=== PATIENT | female | born 1995 | race Caucasian/White ===

== ENCOUNTER 2023-06-26 02:30 | Emergency (ER) | payer OTHER, SELFPAY ==
[2023-06-26 02:33] VITALS: BP 131/94; PULSE 83; TEMP 36.7; O2SAT 99; BMI 18.3
--- NOTE | 2023-06-26 02:53 | ED_ITS ---
HPI - Extremity Problem General Chief complaint: Extremity Problem, Nontraumatic Stated complaint: RING STUCK ON FINGER Time Seen by Provider: 06/26/23 02:31 Source: patient Mode of arrival: walk-in History of Present Illness HPI Narrative: 28-year-old female presents for a ring stuck on her left finger. She could not get it off and tried soap and was unsuccessful. She feels some pressure. This issue started today. There is no previous injury to that finger. Related Data Allergies Allergy/AdvReac Type Severity Reaction Status Date / Time No Known Drug Allergies Allergy Verified 06/26/23 02:37 Review of Systems ROS Narrative A ten point review of systems is negative except as noted above. Exam Narrative Exam Narrative: Nurses note and vital signs reviewed and patient is not hypoxic. General: The patient appears well and in no apparent distress. Patient is resting comfortably on cart. Skin: Warm, dry, no pallor noted. There is no rash noted. Head: Normocephalic, atraumatic Eye: Normal conjunctiva, no drainage Ears, Nose, Mouth, and Throat: oral mucosa is moist. Nares patent. Cardiovascular: Regular Rate and Rhythm Respiratory: Patient is in no distress, no accessory muscle use GI: Soft and nontender Musculoskeletal: There is a ring stuck on her right middle finger. The finger is mildly swollen. After removal by the nursing staff there is no laceration or abrasion of the skin. Neurological: Awake and alert Psychiatric: Cooperative Constitutional Vital Signs, click to edit/add: Last Vital Signs Temp 98.1 F 06/26/23 02:33 Pulse 83 06/26/23 02:33 Resp 16 06/26/23 02:33 BP 131/94 H 06/26/23 02:33 Pulse Ox 99 06/26/23 02:33 Course Vital Signs Vital signs: Vital Signs Temperature 98.1 F 06/26/23 02:33 Pulse Rate 83 06/26/23 02:33 Respiratory Rate 16 06/26/23 02:33 Blood Pressure 131/94 H 06/26/23 02:33 Pulse Oximetry 99 06/26/23 02:33 Temperature 98.1 F 06/26/23 02:33 Pulse Rate 83 06/26/23 02:33 Respiratory Rate 16 06/26/23 02:33 Blood Pressure 131/94 H 06/26/23 02:33 Pulse Oximetry 99 06/26/23 02:33 MDM - Extremity (Nontraumatic) MDM Narrative Medical decision making narrative: The ring has been removed by nursing staff with ring cutting device. Differential Diagnosis Differential diagnosis: Likely other (Stuck ring, laceration, abrasion) Discharge Plan Discharge Stand Alone Forms: Portal Instructions Chief Complaint: Extremity Problem, Nontraumatic Clinical Impression: Constriction injury of finger of right hand Patient Disposition: Home, Self-Care Time of Disposition Decision: 02:51 Condition: Good Mode of Transportation: Private Vehicle Print Language: Portuguese Referrals: Physician,Non-Staff, MD [Primary Care Provider] - 1 week
== END 2023-06-26 03:00 | disposition home or self-care (01) ==
PROVIDERS: Emergency Provider Emergency Medicine; Family Provider Family Medicine
DX: S60.443A External constriction of left middle finger, initial encounter (principal); W49.04XA Ring or other jewelry causing external constriction, initial encounter
CPT/HCPCS: 99282

== ENCOUNTER 2023-09-23 13:46 | Emergency (ER) | payer OTHER, SELFPAY ==
[2023-09-23 13:49] VITALS: BP 148/90; PULSE 82; TEMP 36.8; O2SAT 98; BMI 19.1
--- OUTSIDE RECORDS SUMMARY | 2023-09-23 13:55 | XMS_ITS | CCD ---
Author Organization [facility] Inform ion Partnership IVF EMBRYOLOGIST [facility] Care Team Providers Care Supervisor Production Managing Name Role Phone Unavailable Primary Care Provider ELHAM Greer Referring Unavailable Jocelynn Koo Attending HOLLY Thornton Attending Unavailable Allergies Allergy Classification Reported Allergen(s) Allergy Type Date of Onset Reaction(s) Facility (1 source) No Known Medication Allergies; Translations: [No Known Medication Allergies] Propensity to adverse reactions to drug (disorder) [facility] Repository Medications Current Medications Medication Drug Class(es) Dates Sig (Normalized) Sig (Original) acetaminophen 325 mg oral capsule (1 source) Acetaminophen (T YLENOL) 325 MG CAPS Take by mouth 0 Active Problems Problem Classification Problem Date Documented Da te Episodic/Chronic Menstrual disorders (1 source) Menstrual period late; Translations: [Late menses] Chronic Results Test Name Value Interpretation Reference Range Facil ity HCG, Quanton 06-08-2020 HCG, Quant <1 Normal <5 [facility] Comment on above: Result Comment: Non-preg premeno <=5 Postmeno <=8 Male <=3 If HCG results do not concur with clinical observations, additional testing to confirm results is recommended. Elevated results not associated with may be found in patients with other diseases such as tumors of the germ cells (testis, ovaries, etc.), bladder, pancreas, stomach, lungs, and liver. Performed By: #### B HCG #### [facility] [address] [place] [address] [employer] [facility] Tender: Dragan Cabello MD HCG, Quantitative, on 06-08-2020 hCG Quant <1 <5 IU/L [facility] Work Phone: Comment on above: Non-preg premeno <=5 Postmeno <=8 Male <=3 If HCG results do not concur with clinical observations, additional testing to confirm results is recommended. Elevated results not associated with may be found in patients with other diseases such as tumors of the germ cells (testis, ovaries, etc.), bladder, pancreas, stomach, lungs, and liver. Encounters Encounter Date Encounter Type Care Provider Facility Start: 08-28-2023 End: 08-28-2023 ambulatory HOLLY RAMIREZ Not Available Start: 04-10-2022 End: 04-11-2022 ambulatory Jocelynn Montanezapolonia Facility: [facility] Start: 06-08-2020 End: 06-09-2020 Patient encounter procedure ELHAM BURCH [facility] Start: 06-08-2020 End: 06-08-2020 Subsequent hospital visit by physician CARLEEN Daniels OB and ENT PHYSICIAN Comment on above: Late menses Procedures Date Procedure Procedure Detail Performing Clinician Start: 06-08-2020 Gonadotropin chorion ic quantitative Elham Burch Plan of Treatment Date Care Activity Detail Author Start: 10-26-2020 Influenza vaccination Flu vacc ine ([facility]: Start: 08-16-2020 End: 08-16-2020 Ancillary Procedure [facility] Start: 2015 Screening for malign ant neoplasm of cervix Cervical cancer screen [facility] Phone: Start: 2013 DTaP/Tdap/Td vaccine (1 - Tdap) DTaP/Tdap/Td vaccine (1 - Tdap) [facility] Phone: Start: 2010 COVID-19 Vaccine (1) COVID-19 Vaccin e (1) [facility] Phone: Start: 2009 HIV screening HIV screen [facility] Work Phone: Start: 2005 HPV vaccine (1 - 2-d ose series) HPV vaccine (1 - 2-dose series) [facility] Phone: Start: 1995 Varicella vaccine (1 of 2 - 2-dose childhood series) Varicella vaccine (1 of 2 - 2-dose childhood series) [facility] Phone: Start: 1994 Hepatitis C screening Hepatitis C sc eleni [facility] Phone: Payers Date Payer Category Payer Medicaid [id number] 2020 Private Health Insurance 2019 Private Health Insurance [id number] 1994 Unknown [id number] 1994 Unknown [id number] 1994 Unknown [id number] Social History Date Type Detail Facility Start: 06-08-2020 Tobacco smoking stat [facility] Former smoker [facility] Phone: Start: 06-08-2020 Tobacco use and exposure Never used [facility] Phone: Start: 06-08-2020 Alcohol intake Current drinke r of alcohol (finding) [facility] Phone: Start: 06-08-2020 Alcohol Comment occasional [facility] [employer] Work Phone: Sex Assigned At Not on file [facility] Phone: Clinical Note 04-02-2022 Note Date & Type Note Facility 04-02-2022 Note Patient Education Ma terials Name: Delicia Siddiqui Current Date: 04/02/2022 11:25:10 [place] : 1995 The following sheet(s) are the Patient Education Leaflets for Delicia Siddiqui [employer] The Range of Pap Test Results When your Pap test is sent to the lab, the lab studies your cell samples and reports any abnormal cell changes. Your healthcare provider can discuss these changes with you. In some cases, an abnormal Pap test is due to an infection. More serious cell changes range from dysplasia to cancer. Talk to your healthcare provider about your Pap test. Normal results Cervical cells, even normal ones, are always changing. As they mature, normal squamous cells move from deeper layers within the cervix. Over time, these cells flatten and cover the surface of the cervix. Within the cervical canal, the cells are different. These glandular cells are taller and not as flat as the cells on the surface of the cervix. When a Pap test sample shows healthy cells of both types, the results are negative. Keep having Pap tests as often as directed. Abnormal results A positive Pap test result means some cells in the sample showed abnormal changes. These results are grouped by the type of cell change and the location, or extent, of the changes. Depending on the results, you may need further testing. ?Inflammation. Noncancerous changes are present. They may be due to normal cell repair. Or, they may be caused by an infection, such as HPV or yeast. Further testing may be needed. (Also called reactive cellular changes.) ?Atypical squamous cells. Test results are unclear. Cells on the surface of the cervix show changes, but their significance is not yet known. Testing for HPV and other sexually transmitted infections (STIs) may be needed. Treatment may be required. (Reported as ASC-US or ASC-H.) ?Atypical glandular cells. Cells lining the cervical canal show abnormal changes. Further testing is likely. You may also have treatment to destroy or remove problem cells. (Reported as AGC.) ?Mild dysplasia. Cells show distinct changes. More testing or HPV typing may be done. You may also have treatment to destroy or remove problem cells. (Reported as low-grade LISSETTE or ERVIN 1.) ?Moderate to severe dysplasia. Cells show precancerous changes. Or, noninvasive cancer (carcinoma in situ) may be present. Treatment to destroy or remove problem cells is likely. (Reported as high-grade LISSETTE or ERVIN 2 or ERVIN 3.) ?Cancer. Different types of cancer may be detected by your Pap test. More tests to assess the cancer's extent are likely. The type of treatment will depend on the test results and other factors, such as age and health history. (Reported as squamous cell carcinoma, endocervical adenocarcinoma in situ, or adenocarcinoma.) ? [id number] The [employer]. [address] [place] [address], [place] [address]. All rights reserved. This information is not intended as a substitute for professional medical care. Always follow your healthcare professional's instructions. Oncology Breast Health: Breast Self-Awareness What is breast self-awareness? Breast self-awareness is knowing how your breasts normally look and feel. Your breasts change as you go through different stages of your life. So it's important to learn what is normal for your breasts. Breast self-awareness helps you notice any changes in your breasts right away. Report any changes to your healthcare provider. Why is breast self-awareness important? Many experts now say that women should focus on breast self-awareness instead of doing a breast self-examination (BSE). These experts include the [place] [employer], the U.S. Preventive Services Task Force, and the [place] [employer] of [employer]stetricians and Gynecologists. Some experts even advise not teaching women to do a BSE. That's because research hasn't shown a clear benefit to doing BSEs. Breast self-awareness is different than a BSE. Breast self-awareness isn't about following a certain method and schedule. It's about knowing what's normal for your breasts. That way you can notice even small changes right away. If you see any changes, report them to your healthcare provider. Changes to look for Call your healthcare provider if you find any changes in your breasts that concern you. These changes may include: ? A lump ? Nipple discharge other than breastmilk, especially a bloody discharge ? Swelling ? A change in size or shape ? Skin irritation, such as redness, thickening, or dimpling of the skin ? Swollen lymph nodes in the armpit ? Nipple problems, such as pain or redness If you find a lump Contact your provider if you find lumpiness in one breast, feel something different in the tissue, or feel a definite lump. Sometimes lumpiness may be due to menstrual changes. But there may be reason for concern. Your provider may want to see you right away if you have: ? Nipple discharg (more content not included)... [facility] Assessments Diagnosis Late menses Other disorder of menstruation and other abnormal bleeding from female genital tract Summary Purpose Family History No Family History Records FoundNo Family History Records FoundNo Family History Records Found Advance Directives No Advanced Directives Records FoundNo Advanced Directives Records FoundNo Advanced Directives Records Found Additional Source Comments INFORMATION SOURCE (unrecogn ized section and content) DATE CREATED AUTHOR 06/09/2020 [facility] DATE CREATED AUTHOR AUTHOR'S ORGANIZ ATION 04/11/2022 [facility] DATE CREATED AUTHOR AUTHOR'S ORGANIZ ATION 08/30/2023 [facility] EPIC FOR RECORDS PERTAINING TO PATIENTS WHO ARE OR HAVE BEEN ENROLLED IN A CHEMICAL DEPENDENCY/SUBSTANCEABUSE PROGRAM, SOME INFORMATION MAY BE OMITTED. This clinical summary was aggregated from multiple sources. Caution should be exercised in using it in the provision of clinical care. This summary normalizes information from multiple sources, and as a consequence, information in this document may materially change the coding, format and clinical context of patient data. In addition, data may be omitted in some cases. CLINICAL DECISIONS SHOULD BE BASED ON THE PRIMARY CLINICAL RECORDS. [facility]. provides no warranty or guarantee of the accuracy or completeness of information in this document.
--- NOTE | 2023-09-23 14:00 | US_ITS ---
[address] [address] Patient Name: LANE SHAW MRN: [id number] date: 1995 Sex: F Assigned Patient Location: ER Current Patient Location: ER Accession/Order Number: [id number] Exam Date: 09/23/2023 14:30 Report Date: 09/23/2023 15:35 At the request of: SOUTH ODONNELL Procedure: US pelvis transvaginal EXAMINATION: US pelvis transvaginal HISTORY: Pelvic pain COMPARISON: No relevant comparison available. TECHNIQUE: Transabdominal and/or transvaginal sonographic examination was performed as indicated by examination type. FINDINGS: UTERUS: Normal size and appearance. Uterus size: 8.8 x 3.7 x 4.3 cm ENDOMETRIUM: Normal homogeneous appearance. Endometrial thickness: 7.8 RIGHT OVARY: Normal size and appearance. Duplex Doppler demonstrates normal waveform and flow; resistive index 0.5. Ovary size: 2.6 x 1.5 x 1.5 cm LEFT OVARY: Normal size and appearance. Duplex Doppler demonstrates normal waveform and flow; resistive index 0.5. Ovary size: 3.3 x 2.0 x 3.0 cm CUL-DE-SAC: Moderate amount of free fluid. BLADDER: Unremarkable. OTHER: None. US/US pelvis transvaginal IMPRESSION: 1. Moderate amount of simple appearing free fluid within pelvic cul-de-sac; likely recently ruptured ovarian cyst. 2. Otherwise no acute or suspicious findings. Electronically authenticated by: VIKA HUFFMAN Date: 09/23/2023 15:35
--- NOTE | 2023-09-23 14:01 | ED_ITS ---
HPI HPI - General Adult General Chief complaint: Abdominal Pain Stated complaint: PELVIC PAIN/ LOWER BACK Time Seen by Provider: 09/23/23 13:50 Source: patient Mode of arrival: walk-in History of Present Illness HPI narrative: Patient is a 28-year-old female who presents to the emergency department for 2- day history of pain in the suprapubic abdomen. She has no other abdominal pain. She does have some pain to the low back. No urinary symptoms. She denies vaginal bleeding or discharge. She has no STD concern. No fevers or vomiting. She had a regular menstrual period last week that ended several days ago. She states laying flat and sitting down makes the pain worse. She describes it as a heavy feeling. She is not concerned for . No medications prior to arrival. Related Data Previous Rx's ?Medication ?Instructions ?Recorded cephalexin 500 mg capsule 500 mg PO Q8H 7 days #21 caps 09/23/23 ketorolac 10 mg tablet 10 mg PO TID PRN pain #10 tabs 09/23/23 ondansetron 4 mg disintegrating 4 mg PO Q6H PRN nausea and 09/23/23 tablet vomiting #12 tabs oxycodone-acetaminophen 5 mg-325 1 tab PO Q6H PRN pain 3 days #12 09/23/23 mg tablet (Percocet) tabs phenazopyridine 200 mg tablet 200 mg PO Q8H 2 days #6 tabs 09/23/23 (Pyridium) Allergies Allergy/AdvReac Type Severity Reaction Status Date / Time No Known Drug Allergies Allergy Verified 06/26/23 02:37 Opioid HPI Opioid Management Most Recent Opioid Data: No Data to Display Review of Systems ROS Constitutional Denies: fever or chills Ears, nose, mouth, and throat Denies: throat pain or nasal congestion Respiratory Denies: shortness of breath Gastrointestinal Reports: abdominal pain; Denies: nausea or vomiting Genitourinary Denies: painful urination Musculoskeletal Reports: back pain; Denies: neck pain Integumentary/Breast Denies: rash Endocrine Denies: excessive urination Hematologic/Lymphatic Denies: easy bruising or easy bleeding Exam Narrative Exam Narrative: Gen.: Awake, alert, in no distress, tearful and standing at the bedside Head: Normocephalic, atraumatic ENT: Moist mucous membranes Respiratory: No respiratory distress Gastrointestinal: Abdomen is soft, nondistended and tender with voluntary guarding over the suprapubic abdomen with no rebound; no CVA tenderness Extremities: Moves extremities equally Psych: Normal mood and affect Neuro: No focal neuro deficit Skin: Warm, dry, intact Constitutional Vital Signs, click to edit/add: Last Vital Signs Temp 98.2 F 09/23/23 13:49 Pulse 82 09/23/23 13:49 Resp 18 09/23/23 13:49 BP 148/90 H 09/23/23 13:49 Pulse Ox 98 09/23/23 13:49 O2 Del Method Room Air 09/23/23 13:49 Course Vital Signs Vital signs: Vital Signs Temperature 98.2 F 09/23/23 13:49 Pulse Rate 82 09/23/23 13:49 Respiratory Rate 18 09/23/23 13:49 Blood Pressure 148/90 H 09/23/23 13:49 Pulse Oximetry 98 09/23/23 13:49 Oxygen Delivery Method Room Air 09/23/23 13:49 Temperature 98.2 F 09/23/23 13:49 Pulse Rate 82 09/23/23 13:49 Respiratory Rate 18 09/23/23 13:49 Blood Pressure 148/90 H 09/23/23 13:49 Pulse Oximetry 98 09/23/23 13:49 Oxygen Delivery Method Room Air 09/23/23 13:49 Medical Decision Making MDM Narrative Medical decision making narrative: ReSound performed because of the patient's significant pain at presentation. She has a urinary tract infection. Otherwise stable labs and negative test. Ultrasound shows fluid in the pelvic cul-de-sac consistent with a recently ruptured cyst. Patient will be treated for pain for home. Antibiotics, nausea medication, Pyridium given for UTI. Follow-up with gynecology and return to the ER if symptoms change or worsen. Medical Records Medical records reviewed: Yes I reviewed the patient's medical records Lab Data Lab results reviewed: Yes I reviewed the patient's lab results Labs: Lab Results 09/23/23 09/23/23 Range/Units 14:11 14:55 WBC 7.7 (4.0-11.0) 10^3/uL RBC 4.99 (4.20-5.40) 10^6/uL Hgb 14.7 (12.0-16.0) g/dL Hct 44.6 (36.0-48.0) % MCV 89.4 (81.0-99.0) fL MCH 29.5 (26.7-34.0) pg MCHC 33.0 (29.9-35.2) g/dL RDW 12.3 (11.0-15.0) % Plt Count 285 (150-450) 10^3/uL MPV 11.0 (9.5-13.5) fL Neut % (Auto) 70.9 (43.0-75.0) % Lymph % (Auto) 18.6 L (20.5-60.0) % [place] % (Auto) 7.7 (1.7-12.0) % Eos % (Auto) 1.3 (0.9-7.0) % Baso % (Auto) 1.2 (0.2-2.0) % Neut # (Auto) 5.4 (1.4-6.5) 10^3/uL Lymph # (Auto) 1.4 (1.2-3.8) 10^3/uL [place] # (Auto) 0.6 (0.3-0.8) 10^3/uL Eos # (Auto) 0.1 (0.0-0.7) 10^3/uL Baso # (Auto) 0.1 (0.0-0.1) 10^3/uL Abs Immat Gran (auto) 0.02 (0.00-0.03) 10^3/uL Imm/Tot Granulo (auto) 0.3 (0.0-0.5) % Sodium 137 (136-145) mmol/L Potassium 4.0 (3.5-5.1) mmol/L Chloride 101 (98-107) mmol/L Carbon Dioxide 30.1 (21.0-32.0) mmol/L Anion Gap 9.9 BUN 12.0 (7.0-18.0) mg/dL Creatinine 0.87 (0.55-1.02) mg/dL Est GFR ( Amer) >60 (>=60) Est GFR (Non-Af Amer) >60 (>=60) BUN/Creatinine Ratio 13.8 Glucose 90 (74-106) mg/dL Calcium 9.3 (8.5-10.1) mg/dL Total Bilirubin 0.8 (0.2-1.0) mg/dL AST 14 L (15-37) U/L ALT 18 (14-59) U/L Alkaline Phosphatase 55 (46-116) U/L Total Protein 7.8 (6.4-8.2) g/dL Albumin 4.1 (3.4-5.0) g/dL Globulin 3.7 g/dL Albumin/Globulin Ratio 1.1 Serum HCG, Qual Negative (NEGATIVE) Urine Color Lt. yellow (YELLOW) Urine Clarity Sl cloudy (CLEAR) Urine pH 6.0 (5.0-9.0) Ur Specific [place] 1.025 (1.005-1.025) Urine Protein Negative (NEG/TRACE) mg/dL Urine Glucose (UA) Negative (NEGATIVE) mg/dL Urine Ketones Negative (NEGATIVE) mg/dL Urine Occult Blood Small A (NEGATIVE) Urine Nitrite Negative (NEGATIVE) Urine Bilirubin Negative (NEGATIVE) Urine Urobilinogen 0.2 (0.2-1.0) EU/dL Ur Leukocyte Esterase Small A (NEGATIVE) Urine RBC 2-5 A (0-2) #/HPF Urine WBC 20-50 A (NONE SEEN) #/HPF Ur Squamous Epith Cells Rare (NONE/RARE) #/LPF Urine Crystals None seen (None Seen) #/HPF Urine Bacteria Trace A (NONE SEEN) #/HPF Urine Casts None seen (NONE SEEN) #/LPF Urine Mucus Trace A (NONE SEEN) Ur Culture Indicated? Yes Imaging Data US - abdomen: Attestation: I have reviewed the pertinent imaging results. Radiologist's impression: ITS Impressions Transvaginal US 09/23/23 14:00 IMPRESSION: 1. Moderate amount of simple appearing free fluid within pelvic cul-de-sac; likely recently ruptured ovarian cyst. 2. Otherwise no acute or suspicious findings. Electronically authenticated by: VIKA HUFFMAN Date: 09/23/2023 15:35 Discharge Plan Discharge Stand Alone Forms: Portal Instructions Chief Complaint: Abdominal Pain Clinical Impression: Pelvic pain, Urinary tract infection, Ovarian cyst rupture Patient Disposition: Home, Self-Care Time of Disposition Decision: 15:48 Condition: Good Prescriptions / Home Meds: New phenazopyridine [Pyridium] 200 mg tablet 200 mg PO Q8H 2 Days Qty: 6 0RF ketorolac 10 mg tablet 10 mg PO TID PRN (Reason: pain) Qty: 10 0RF oxycodone-acetaminophen [Percocet] 5-325 mg tablet 1 tab PO Q6H PRN (Reason: pain) 3 Days Qty: 12 0RF Rx Instructions: DX: R10.9 cephalexin 500 mg capsule 500 mg PO Q8H 7 Days Qty: 21 0RF ondansetron 4 mg tablet,disintegrating 4 mg PO Q6H PRN (Reason: nausea and vomiting) Qty: 12 0RF Print Language: French Instructions: Urinary Tract Infection in Women (ED), Pelvic Pain (ED) Additional Instructions: 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
[2023-09-23] MEDS: KETOROLAC TROMETHAMINE 30 MG/ML VIAL IVP (14:13)
[2023-09-23 14:20] LABS: Basophils Absolute Auto 0.1 10^3/uL (0.0-0.1); Basophils Percent Auto 1.2 % (0.2-2.0); Eosinophils Absolute Auto 0.1 10^3/uL (0.0-0.7); Eosinophils Percent Auto 1.3 % (0.9-7.0); Hematocrit 44.6 % (36.0-48.0); Hemoglobin 14.7 g/dL (12.0-16.0); Immature Granulocytes Abs Auto 0.02 10^3/uL (0.00-0.03); Immature Granulocytes Pct Auto 0.3 % (0.0-0.5); Lymphocytes Absolute Auto 1.4 10^3/uL (1.2-3.8); Lymphocytes Percent Auto 18.6 % (20.5-60.0); Mean Corpuscular Hemoglobin 29.5 pg (26.7-34.0); Mean Corpuscular Volume 89.4 fL (81.0-99.0); Monocytes Absolute Auto 0.6 10^3/uL (0.3-0.8); Monocytes Percent Auto 7.7 % (1.7-12.0); Neutrophils Absolute Auto 5.4 10^3/uL (1.4-6.5); Neutrophils Percent Auto 70.9 % (43.0-75.0); Platelet Count 285 10^3/uL (150-450); Red Blood Count 4.99 10^6/uL (4.20-5.40); Red Cell Distribution Width 12.3 % (11.0-15.0); White Blood Count 7.7 10^3/uL (4.0-11.0)
[2023-09-23 14:36] LABS: Alanine Aminotransferase 18 U/L (14-59); Albumin Globulin Ratio 1.1; Albumin Level 4.1 g/dL (3.4-5.0); Alkaline Phosphatase 55 U/L (46-116); Anion Gap 9.9; Aspartate Amino Transferase 14 U/L (15-37); BUN Creatinine Ratio 13.8; Bilirubin Total 0.8 mg/dL (0.2-1.0); Calcium 9.3 mg/dL (8.5-10.1); Carbon Dioxide 30.1 mmol/L (21.0-32.0); Chloride 101 mmol/L (98-107); Estimated GFR (African America >60 (>=60); Estimated GFR (Non-African Ame >60 (>=60); Globulin 3.7 g/dL; Glucose 90 mg/dL (74-106); Sodium 137 mmol/L (136-145); Total Protein 7.8 g/dL (6.4-8.2)
[2023-09-23 14:52] LABS: HCG Qualitative NEGATIVE (NEGATIVE); Internal Control Within Normal Limits
[2023-09-23 15:13] LABS: Bilirubin Urine NEGATIVE (NEGATIVE); Blood Urine SMALL (NEGATIVE); Clarity Urine SL CLOUDY (CLEAR); Color Urine LT. YELLOW (YELLOW); Glucose Urine UA NEGATIVE (NEGATIVE); Ketones Urine NEGATIVE (NEGATIVE); Leukocyte Esterase Urine SMALL (NEGATIVE); Nitrite Urine NEGATIVE (NEGATIVE); Protein Urine NEGATIVE (NEG/TRACE); Specific Gravity Urine 1.025 (1.005-1.025); Urobilinogen Urine 0.2 EU/dL (0.2-1.0)
[2023-09-23 15:23] LABS: Urine Microscopic Indicated YES
[2023-09-23 15:27] LABS: WBC Urine 20-50 #/HPF (NONE SEEN)
[2023-09-23 15:28] LABS: Bacteria Urine TRACE #/HPF (NONE SEEN)
[2023-09-23 15:29] LABS: Cast Seen? NONE SEEN #/LPF (NONE SEEN); Crystals Seen? None Seen #/HPF (None Seen); Mucus Urine TRACE (NONE SEEN); Squamous Epithelial Cell Urine RARE #/LPF (NONE/RARE); Urine Culture Indicated YES
== END 2023-09-23 15:56 | disposition home or self-care (01) ==
PROVIDERS: Physician Assistant; Emergency Provider Emergency Medicine Emergency Medical Services; Family Provider Family Medicine
DX: R10.2 Pelvic and perineal pain (principal); N39.0 Urinary tract infection, site not specified; N83.209 Unspecified ovarian cyst, unspecified side
CPT/HCPCS: 36415; 76830; 80053; 81001; 84703; 85025; 87086; 87186; 96374; 99285; J1885

== ENCOUNTER 2023-09-27 16:57 | Emergency (ER) | payer OTHER, SELFPAY ==
[2023-09-27 17:04] VITALS: BP 134/85; PULSE 127; TEMP 36.8; O2SAT 100; BMI 19.6
--- OUTSIDE RECORDS SUMMARY | 2023-09-27 17:12 | XMS_ITS | CCD ---
Author Organization [facility] Inform ion Partnership ASSOCIATE SPA DIRECTOR [facility] Care Team Providers Care Leader Tier Name Role Phone Unavailable Primary Care Provider ELHAM Greer Referring Unavailable Jocelynn Koo Attending HOLLY Thornton Attending Unavailable Allergies Allergy Classification Reported Allergen(s) Allergy Type Date of Onset Reaction(s) Facility (1 source) No Known Medication Allergies; Translations: [No Known Medication Allergies] Propensity to adverse reactions to drug (disorder) [facility] Repository Medications Current Medications Medication Drug Class(es) [...] Quanton 06-08-2020 HCG, Quant <1 Normal <5 [facility] Comment on above: Result Comment: Non-preg [...] liver. Performed By: #### B HCG #### [facility] [address] [place] [address] [employer]: Dragan Cabello MD HCG, Quantitative, on 06-08-2020 hCG Quant <1 <5 IU/L [facility] Work Phone: Comment on above: Non-preg premeno [...] End: 04-11-2022 ambulatory Jocelynn Montanezapolonia Facility: [facility] [place] Start: 06-08-2020 End: 06-09-2020 Patient encounter procedure ELHAM BURCH [facility] Start: 06-08-2020 End: 06-08-2020 Subsequent hospital visit by physician CARLEEN Daniels [facility] Comment on above: Late menses Procedures Date Procedure Procedure Detail Performing Clinician Start: 06-08-2020 Gonadotropin chorion ic quantitative Elham Burch Plan of Treatment Date Care Activity Detail Author Start: 10-26-2020 Influenza vaccination Flu vacc ine ([facility]: Start: 08-16-2020 End: 08-16-2020 Ancillary Procedure [facility] Start: 2015 Screening for malign ant neoplasm of cervix Cervical cancer screen [facility] Phone: Start: 2013 DTaP/Tdap/Td vaccine (1 - Tdap) DTaP/Tdap/Td vaccine (1 - Tdap) [facility] Phone: Start: 2010 COVID-19 Vaccine (1) COVID-19 Vaccin e (1) [facility] Phone: Start: 2009 HIV screening HIV screen [facility] Work Phone: Start: 2005 HPV vaccine (1 - 2-d ose series) HPV vaccine (1 - 2-dose series) [facility] Phone: Start: 1995 Varicella vaccine (1 of 2 - 2-dose childhood series) Varicella vaccine (1 of 2 - 2-dose childhood series) [email or web address] Phone: Start: 1994 Hepatitis C screening Hepatitis C sc eleni [email or web address] Phone: Payers Date Payer Category Payer Medicaid [id number] 2020 Private Health Insurance 2019 Private Health Insurance [id number] 1994 Unknown [id number] 1994 Unknown [id number] 1994 Unknown [id number] Social History Date Type Detail Facility Start: 06-08-2020 Tobacco smoking stat [facility] Former smoker [email or web address] Phone: Start: 06-08-2020 Tobacco use and exposure Never used [email or web address] Phone: Start: 06-08-2020 Alcohol intake Current drinke r of alcohol (finding) [email or web address] Phone: Start: 06-08-2020 Alcohol Comment occasional [facility] Work Phone: Sex Assigned At Not on file [email or web address] Phone: Clinical Note 04-02-2022 Note Date & Type Note Facility 04-02-2022 Note Patient Education Ma terials Name: Delicia Siddiqui Current Date: 04/02/2022 11:25:10 [place] : 1995 The following sheet(s) are the Patient Education Leaflets 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 4330-4465 [employer]. [address] [place] [address], [place] [address]. All rights reserved. This information is not [...] breast self-examination (BSE). These experts include the [place] [employer], the U.S. Preventive Services Task Force, and the [place] [employer]stetricians and Gynecologists. Some experts [...] ? Nipple discharg (more content not included)... [facility] Assessments Diagnosis Late menses Other disorder of menstruation and other abnormal bleeding from female genital tract Summary Purpose Family History No Family History Records FoundNo Family History Records FoundNo Family History Records Found Advance Directives No Advanced Directives Records FoundNo Advanced Directives Records FoundNo Advanced Directives Records Found Additional Source Comments INFORMATION SOURCE (unrecogn ized section and content) DATE CREATED AUTHOR 06/09/2020 [facility] DATE CREATED AUTHOR AUTHOR'S ORGANIZ ATION 04/11/2022 [facility] DATE CREATED AUTHOR AUTHOR'S ORGANIZ ATION 08/30/2023 [facility] EPIC FOR RECORDS PERTAINING TO PATIENTS [...] BE BASED ON THE PRIMARY CLINICAL RECORDS. [facility] [employer] [facility]. provides no warranty or guarantee of the accuracy or completeness of information in this document.
--- NOTE | 2023-09-27 17:15 | ED_ITS ---
HPI - Abdominal Pain General Chief Complaint: Abdominal Pain Stated Complaint: severe pain, recent ovarian cyst rupture Time Seen by Provider: 09/27/23 17:11 Source: patient Mode of arrival: walk-in Limitations: no limitations History of Present Illness HPI narrative: This patient is here with relapsing symptoms. She was seen earlier this week. At that time it was felt that she had ovarian cystic disease with small amount of fluid in her pelvis and she also had pretty clear-cut urinary tract infection. In fact her urine culture here was positive for E. coli. It was susceptible to all antibiotics. She states that she has been taking her Keflex on a faithful basis. She said that she took Pyridium and all the urinary symptoms such as frequency urgency and dysuria got better. Now that she is finished the Pyridium some of her symptoms are now coming back. To her knowledge she has not been running a fever. She has some nausea but no vomiting. No diarrhea. She has some discomfort in the suprapubic area and the left lower quadrant. This I believe was her first UTI. She does not know much about her family history but she personally has never had a CT scan of the kidneys before and she has no history of kidney stones. Related Data Previous Rx's ?Medication ?Instructions ?Recorded cephalexin 500 mg capsule 500 mg PO Q8H 7 days #21 caps 09/23/23 ketorolac 10 mg tablet 10 mg PO TID PRN pain #10 tabs 09/23/23 ondansetron 4 mg disintegrating 4 mg PO Q6H PRN nausea and 09/23/23 tablet vomiting #12 tabs oxycodone-acetaminophen 5 mg-325 1 tab PO Q6H PRN pain 3 days #12 09/23/23 mg tablet (Percocet) tabs phenazopyridine 200 mg tablet 200 mg PO Q8H 2 days #6 tabs 09/23/23 (Pyridium) Allergies Allergy/AdvReac Type Severity Reaction Status Date / Time No Known Drug Allergies Allergy Verified 06/26/23 02:37 Exam Narrative Exam Narrative: Awake alert pleasant does not appear or toxic but does not feel very good. She does however have an increase in her heart rate. She is not hypotensive and she is afebrile. Skin is warm and dry mucous membranes are moist and pink. She has aching with slight tenderness to percussion over the right flank. There is no other skin lesions noted on her back. In supine position she has no tenderness at McBurney's point no right upper quadrant tenderness. Some discomfort in the suprapubic and left lower quadrant to deep palpation but no peritoneal findings, no rebound or rigidity. The remainder of her examination and respiratory status is normal. Constitutional Vital Signs, click to edit/add: Last Vital Signs Temp 98.2 F 09/27/23 17:04 Pulse 100 H 09/27/23 18:03 Resp 18 09/27/23 18:03 BP 115/73 09/27/23 18:03 Pulse Ox 97 09/27/23 18:03 Course Vital Signs Vital signs: Vital Signs Temperature 98.2 F 09/27/23 17:04 Pulse Rate 127 H 09/27/23 17:04 Respiratory Rate 20 09/27/23 17:04 Blood Pressure 134/85 09/27/23 17:04 Pulse Oximetry 100 09/27/23 17:04 Temperature 98.2 F 09/27/23 17:04 Pulse Rate 100 H 09/27/23 18:03 Respiratory Rate 18 09/27/23 18:03 Blood Pressure 115/73 09/27/23 18:03 Pulse Oximetry 97 09/27/23 18:03 MDM - Abdominal Pain MDM Narrative Medical decision making narrative: This patient had partial resolution of her symptoms and now she has returning of her dysuria symptoms. Her urinalysis here is normal. Her white blood cell count is normal. Physical examination is benign and vital signs show no evidence of a fever. Her heart rate has slowed considerably. To rule out any possibility of obstructive phenomenon causing residual pyelonephritis a CT scan was done. The CT of the abdomen is read by the radiologist is negative for any acute process. There is no indication of pelvic pathology. Her serum test was negative previously. There is no free fluid in the pelvis. I will start her on a second antibiotic. There is no indication of colitis or diverticulitis. Lab Data Labs: Lab Results 09/27/23 09/27/23 Range/Units 17:20 17:30 WBC 5.9 (4.0-11.0) 10^3/uL RBC 4.68 (4.20-5.40) 10^6/uL Hgb 13.6 (12.0-16.0) g/dL Hct 40.7 (36.0-48.0) % MCV 87.0 (81.0-99.0) fL MCH 29.1 (26.7-34.0) pg MCHC 33.4 (29.9-35.2) g/dL RDW 12.3 (11.0-15.0) % Plt Count 265 (150-450) 10^3/uL MPV 11.2 (9.5-13.5) fL Neut % (Auto) 63.2 (43.0-75.0) % Lymph % (Auto) 25.0 (20.5-60.0) % [place] % (Auto) 9.2 (1.7-12.0) % Eos % (Auto) 1.2 (0.9-7.0) % Baso % (Auto) 1.2 (0.2-2.0) % Neut # (Auto) 3.7 (1.4-6.5) 10^3/uL Lymph # (Auto) 1.5 (1.2-3.8) 10^3/uL [place] # (Auto) 0.5 (0.3-0.8) 10^3/uL Eos # (Auto) 0.1 (0.0-0.7) 10^3/uL Baso # (Auto) 0.1 (0.0-0.1) 10^3/uL Abs Immat Gran (auto) 0.01 (0.00-0.03) 10^3/uL Imm/Tot Granulo (auto) 0.2 (0.0-0.5) % Lactate 1.7 (0.4-2.0) mmol/L Urine Color Lt. yellow (YELLOW) Urine Clarity Clear (CLEAR) Urine pH 8.5 (5.0-9.0) Ur Specific [place] 1.015 (1.005-1.025) Urine Protein Negative (NEG/TRACE) mg/dL Urine Glucose (UA) Negative (NEGATIVE) mg/dL Urine Ketones Negative (NEGATIVE) mg/dL Urine Occult Blood Negative (NEGATIVE) Urine Nitrite Negative (NEGATIVE) Urine Bilirubin Negative (NEGATIVE) Urine Urobilinogen 0.2 (0.2-1.0) EU/dL Ur Leukocyte Esterase Negative (NEGATIVE) Discharge Plan Discharge Stand Alone Forms: Portal Instructions Chief Complaint: Abdominal Pain Clinical Impression: Cystitis Patient Disposition: Home, Self-Care Time of Disposition Decision: 19:03 Prescriptions / Home Meds: No Action phenazopyridine [Pyridium] 200 mg tablet 200 mg PO Q8H 2 Days Qty: 6 0RF ketorolac 10 mg tablet 10 mg PO TID PRN (Reason: pain) Qty: 10 0RF oxycodone-acetaminophen [Percocet] 5-325 mg tablet 1 tab PO Q6H PRN (Reason: pain) 3 Days Qty: 12 0RF Rx Instructions: DX: R10.9 cephalexin 500 mg capsule 500 mg PO Q8H 7 Days Qty: 21 0RF ondansetron 4 mg tablet,disintegrating 4 mg PO Q6H PRN (Reason: nausea and vomiting) Qty: 12 0RF Print Language: Latvian Additional Instructions: Finish previous antibiotic and start Cipro/Toradol/Zofran as needed Referrals: Physician,Non-Staff, [Physician] - 1 week
--- NOTE | 2023-09-27 17:26 | CT_ITS ---
The [address] [address] Patient Name: LANE SHAW MRN: [id number] date: 1995 Sex: F Assigned Patient Location: ER Current Patient Location: ED.MAIN Accession/Order Number: [id number] Exam Date: 09/27/2023 17:44 Report Date: 09/27/2023 18:39 At the request of: EMIL IZQUIERDO Procedure: CT abdomen pelvis wo con CT ABDOMEN/PELVIS WITHOUT IV CONTRAST. INDICATION: Unresolved UTI, suprapubic/left lower quadrant elo COMPARISON: There are no other studies available for comparison. TECHNIQUE: Contiguous axial images were obtained from the lung bases to the pelvic floor without intravenous or oral contrast. Coronal and sagittal reformations are provided. FINDINGS: LOWER LUNGS: Clear. LIVER/BILIARY TREE: No discrete lesion. No intrahepatic ductal dilatation. GALLBLADDER: No significant gallbladder wall thickening. No radiopaque stone. CBD: Normal CBD. SPLEEN: Normal in size. PANCREAS: No appreciable peripancreatic fluid. No pancreatic ductal dilatation. No discrete lesion. ADRENALS: Normal. KIDNEYS: No hydronephrosis. No radiopaque calculus. STOMACH AND BOWEL: Stomach is unremarkable. No dilated bowel loops. No bowel wall thickening. APPENDIX: Not well-visualized. PERITONEAL CAVITY: No fluid. No fat stranding. ABDOMINAL WALL: No subcutaneous stranding. No subcutaneous fluid collection. LYMPH NODES: No mesenteric or retroperitoneal lymphadenopathy by CT criteria. ABDOMINAL AORTA: No aneurysm. PELVIS: No acute abnormality. MUSCULOSKELETAL: No acute osseous abnormality. CT/CT abdomen pelvis wo con IMPRESSION: No acute abnormality in the abdomen or pelvis. No obstructive uropathy. Electronically authenticated by: GILLIAN ADAME Date: 09/27/2023 18:39
[2023-09-27] MEDS: KETOROLAC TROMETHAMINE 30 MG/ML VIAL 15 MG IVP ×2 (17:37→19:13)
[2023-09-27 17:43] LABS: Basophils Absolute Auto 0.1 10^3/uL (0.0-0.1); Basophils Percent Auto 1.2 % (0.2-2.0); Eosinophils Absolute Auto 0.1 10^3/uL (0.0-0.7); Eosinophils Percent Auto 1.2 % (0.9-7.0); Hematocrit 40.7 % (36.0-48.0); Hemoglobin 13.6 g/dL (12.0-16.0); Immature Granulocytes Abs Auto 0.01 10^3/uL (0.00-0.03); Immature Granulocytes Pct Auto 0.2 % (0.0-0.5); Lymphocytes Absolute Auto 1.5 10^3/uL (1.2-3.8); Mean Corpuscular HGB Conc 33.4 g/dL (29.9-35.2); Mean Corpuscular Hemoglobin 29.1 pg (26.7-34.0); Mean Platelet Volume 11.2 fL (9.5-13.5); Monocytes Absolute Auto 0.5 10^3/uL (0.3-0.8); Monocytes Percent Auto 9.2 % (1.7-12.0); Neutrophils Absolute Auto 3.7 10^3/uL (1.4-6.5); Neutrophils Percent Auto 63.2 % (43.0-75.0); Platelet Count 265 10^3/uL (150-450); Red Blood Count 4.68 10^6/uL (4.20-5.40); Red Cell Distribution Width 12.3 % (11.0-15.0); White Blood Count 5.9 10^3/uL (4.0-11.0)
[2023-09-27 17:44] LABS: Bilirubin Urine NEGATIVE (NEGATIVE); Blood Urine NEGATIVE (NEGATIVE); Clarity Urine CLEAR (CLEAR); Color Urine LT. YELLOW (YELLOW); Glucose Urine UA NEGATIVE (NEGATIVE); Ketones Urine NEGATIVE (NEGATIVE); Leukocyte Esterase Urine NEGATIVE (NEGATIVE); Nitrite Urine NEGATIVE (NEGATIVE); Protein Urine NEGATIVE (NEG/TRACE); Specific Gravity Urine 1.015 (1.005-1.025); Urobilinogen Urine 0.2 EU/dL (0.2-1.0); pH Urine 8.5 (5.0-9.0)
[2023-09-27 17:45] LABS: Urine Microscopic Indicated NO
[2023-09-27] MEDS: CIPROFLOXACIN IN 5 % DEXTROSE 400 MG/200 ML PREMIX 200 MG IV (17:49)
[2023-09-27] MEDS: 0.9 % SODIUM CHLORIDE 1,000 ML 999 ML IV (17:49)
[2023-09-27 18:03] VITALS: BP 115/73; PULSE 100; O2SAT 97
[2023-09-27 18:05] LABS: Lactate/Lactic Acid 1.7 mmol/L (0.4-2.0)
[2023-09-27 19:00] VITALS: BP 125/78
[2023-09-27] MEDS: ONDANSETRON PF 4 MG/2 ML VIAL IV (19:13)
== END 2023-09-27 19:27 | disposition home or self-care (01) ==
PROVIDERS: Emergency Provider Emergency Medicine Emergency Medical Services; Family Provider Family Medicine; PCP Internal Medicine
DX: N30.90 Cystitis, unspecified without hematuria (principal)
CPT/HCPCS: 36415; 74176; 81003; 83605; 85025; 96365; 96375; 96376; 99285; J0744; J1885; J2405

== ENCOUNTER 2023-12-12 13:59 | Observation (INO) | payer OTHER, SELFPAY ==
[2023-12-12] VITALS (18 sets, daily range): BP systolic 99–124; BP diastolic 52–90; PULSE 66–99; TEMP 36.2–36.7; O2SAT 92–99; BMI 20.2; BMI 20.1
--- NOTE | 2023-12-12 14:15 | CT_ITS ---
The [address] [address] Patient Name: LANE SHAW MRN: [id number] date: 1995 Sex: F Assigned Patient Location: ER Current Patient Location: Accession/Order Number: [id number] Exam Date: 12/12/2023 16:25 Report Date: 12/12/2023 17:35 At the request of: SOUTH ODONNELL Procedure: CT abdomen pelvis w con EXAM: CT abdomen pelvis w con TECHNIQUE: Axial CT images were obtained of the abdomen and pelvis with intravenous contrast. Sagittal and coronal reformatted images were also obtained. Dose reduction techniques were achieved by using automated exposure control and/or adjustment of mA and/or kV according to patient size and/or use of iterative reconstruction technique. HISTORY: Acute appendicitis COMPARISON: 09/27/2023 FINDINGS: Lower chest: The lower lungs are clear. Liver: The liver is homogeneous with normal contours and normal size. Gallbladder: The gallbladder is unremarkable. There is no intra or extrahepatic biliary dilatation. Pancreas: The pancreas is homogeneous without evidence for mass lesion or inflammation. Spleen: The spleen is unremarkable without evidence for mass lesion. Adrenal glands: The adrenal glands are unremarkable Kidneys and bladder: The kidneys are unremarkable with no evidence for mass lesion, hydronephrosis or inflammation. The ureters demonstrate normal caliber. The urinary bladder is unremarkable. GI Tract: Stomach is unremarkable. Visualized small bowel is unremarkable without evidence for obstruction or active inflammation. The appendix is borderline dilated at 8 mm in thickness, without significant periappendiceal inflammation.The visualized portion of the large bowel is unremarkable. Reproductive: Unremarkable Lymph nodes: No retroperitoneal or abdominal lymphadenopathy. Vascular: The aorta is not dilated. Mesenteric, renal and iliac arteries are patent. Peritoneum: No free intraperitoneal air or fluid. No acute inflammation. Abdominal wall: Unremarkable without acute abnormality. CT/CT abdomen pelvis w con IMPRESSION: Borderline dilated appendix without significant periappendiceal inflammation. This is indeterminate for an early acute appendicitis. No additional acute abdominal findings. Electronically authenticated by: ASHKAN POWELL Date: 12/12/2023 17:35
--- NOTE | 2023-12-12 14:17 | ED.ABDPAIN1 ---
HPI - Abdominal Pain General Chief Complaint: Abdominal Pain Stated Complaint: ABDOMINAL PAIN Time Seen by Provider: 12/12/23 14:14 Source: patient Mode of arrival: walk-in History of Present Illness HPI narrative: Patient is a 28-year-old female who presents to the emergency department for a 4-day history of pain in the right side of the abdomen. She has never had previous abdominal surgery. She does have a history of previous ovarian cyst rupture but this does not feel similar. She feels the pain in her back as well. She denies fevers but reports chills. She has had nausea with no vomiting. She has a lack of appetite. Pain is significantly worse with movement, walking. She has no concern for . Related Data Previous Rx's ?Medication ?Instructions ?Recorded cephalexin 500 mg capsule 500 mg PO Q8H 7 days #21 caps 09/23/23 ketorolac 10 mg tablet 10 mg PO TID PRN pain #10 tabs 09/23/23 ondansetron 4 mg disintegrating 4 mg PO Q6H PRN nausea and 09/23/23 tablet vomiting #12 tabs oxycodone-acetaminophen 5 mg-325 1 tab PO Q6H PRN pain 3 days #12 09/23/23 mg tablet (Percocet) tabs phenazopyridine 200 mg tablet 200 mg PO Q8H 2 days #6 tabs 09/23/23 (Pyridium) Allergies Allergy/AdvReac Type Severity Reaction Status Date / Time No Known Drug Allergies Allergy Verified 06/26/23 02:37 Review of Systems ROS Constitutional Reports: chills; Denies: fever Ears, nose, mouth, and throat Denies: throat pain or nasal congestion Respiratory Denies: shortness of breath Gastrointestinal Reports: abdominal pain and nausea; Denies: vomiting or diarrhea Musculoskeletal Reports: back pain; Denies: neck pain, extremity pain or extremity swelling Integumentary/Breast Denies: rash Neurological Denies: numbness in extremities or weakness in extremities Hematologic/Lymphatic Denies: easy bruising or easy bleeding Exam Narrative Exam Narrative: Gen.: Awake, alert, no distress but uncomfortable Head: Normocephalic, atraumatic ENT: Moist mucous membranes Respiratory: No respiratory distress, lungs clear bilaterally Cardio: Regular rate and rhythm Gastrointestinal: Abdomen is soft, nondistended moderate to severe tenderness noted in the right abdomen, voluntary guarding and rebounding noted Extremities: Moves extremities equally Psych: Normal mood and affect Neuro: No focal neuro deficit Skin: Warm, dry, intact Constitutional Vital Signs, click to edit/add: Last Vital Signs Temp 98.1 F 12/12/23 14:01 Pulse 74 12/12/23 16:27 Resp 18 12/12/23 16:27 BP 104/71 12/12/23 16:27 Pulse Ox 99 12/12/23 16:27 O2 Del Method Room Air 12/12/23 14:01 Course Vital Signs Vital signs: Vital Signs Temperature 98.1 F 12/12/23 14:01 Pulse Rate 78 12/12/23 14:01 Respiratory Rate 20 12/12/23 14:01 Blood Pressure 120/90 12/12/23 14:01 Pulse Oximetry 97 12/12/23 14:01 Oxygen Delivery Method Room Air 12/12/23 14:01 Temperature 98.1 F 12/12/23 14:01 Pulse Rate 74 12/12/23 16:27 Respiratory Rate 18 12/12/23 16:27 Blood Pressure 104/71 12/12/23 16:27 Pulse Oximetry 99 12/12/23 16:27 Oxygen Delivery Method Room Air 12/12/23 14:01 MDM - Abdominal Pain MDM Narrative Medical decision making narrative: Patient treated with IV Dilaudid, Zofran. She had significant pain relief but after returning from CT had an increase in pain again and was given additional morphine. She was kept n.p.o. in the ER. She had several sips of diet Dr. Sheehan around 1 PM and has not had any food or fluids since that time. Laboratory studies are unremarkable, test is negative. CT with IV and oral contrast shows the patient has borderline dilated appendix with no significant inflammation. Based on her clinical exam, we are concerned for acute appendicitis and I contacted general surgery. Dr. Mcclelland will take the patient to surgery for acute appendicitis at this time. Imipenem was given. She is stable at time of admission. SUPERVISED APC VISIT, PHYSICIAN ATTESTATION: Based on the medical record the care appears appropriate. ? Medical Records Attestation: I reviewed the patient's medical records. Lab Data Labs: Lab Results 12/12/23 12/12/23 Range/Units 14:06 14:25 WBC 7.1 (4.0-11.0) 10^3/uL RBC 4.75 (4.20-5.40) 10^6/uL Hgb 14.3 (12.0-16.0) g/dL Hct 42.4 (36.0-48.0) % MCV 89.3 (81.0-99.0) fL MCH 30.1 (26.7-34.0) pg MCHC 33.7 (29.9-35.2) g/dL RDW 12.6 (11.0-15.0) % Plt Count 242 (150-450) 10^3/uL MPV 10.6 (9.5-13.5) fL Neut % (Auto) 67.8 (43.0-75.0) % Lymph % (Auto) 21.1 (20.5-60.0) % [place] % (Auto) 8.6 (1.7-12.0) % Eos % (Auto) 1.3 (0.9-7.0) % Baso % (Auto) 1.1 (0.2-2.0) % Neut # (Auto) 4.8 (1.4-6.5) 10^3/uL Lymph # (Auto) 1.5 (1.2-3.8) 10^3/uL [place] # (Auto) 0.6 (0.3-0.8) 10^3/uL Eos # (Auto) 0.1 (0.0-0.7) 10^3/uL Baso # (Auto) 0.1 (0.0-0.1) 10^3/uL Abs Immat Gran (auto) 0.01 (0.00-0.03) 10^3/uL Imm/Tot Granulo (auto) 0.1 (0.0-0.5) % PT 11.0 (9.0-11.6) sec INR 1.04 Sodium 141 (136-145) mmol/L Potassium 3.8 (3.5-5.1) mmol/L Chloride 103 (98-107) mmol/L Carbon Dioxide 27.1 (21.0-32.0) mmol/L Anion Gap 14.7 BUN 12.0 (7.0-18.0) mg/dL Creatinine 0.92 (0.55-1.02) mg/dL Est GFR ( Amer) >60 (>=60 mL/min/1.73m^2) Est GFR (Non-Af Amer) >60 (>=60 mL/min/1.73m^2) BUN/Creatinine Ratio 13.0 Glucose 87 (74-106) mg/dL Lactate 1.0 (0.4-2.0) mmol/L Calcium 9.4 (8.5-10.1) mg/dL Total Bilirubin 0.5 (0.2-1.0) mg/dL AST 11 L (15-37) U/L ALT 14 (14-59) U/L Alkaline Phosphatase 52 (46-116) U/L Total Protein 7.5 (6.4-8.2) g/dL Albumin 4.1 (3.4-5.0) g/dL Globulin 3.4 g/dL Albumin/Globulin Ratio 1.2 Serum HCG, Qual Negative (NEGATIVE) Urine Color Lt. yellow (YELLOW) Urine Clarity Clear (CLEAR) Urine pH 6.0 (5.0-9.0) Ur Specific [place] 1.025 (1.005-1.025) Urine Protein Negative (NEG/TRACE) mg/dL Urine Glucose (UA) Negative (NEGATIVE) mg/dL Urine Ketones Negative (NEGATIVE) mg/dL Urine Occult Blood Negative (NEGATIVE) Urine Nitrite Negative (NEGATIVE) Urine Bilirubin Negative (NEGATIVE) Urine Urobilinogen 0.2 (0.2-1.0) EU/dL Ur Leukocyte Esterase Negative (NEGATIVE) Imaging Data CT scan - abdomen: Attestation: I have reviewed the pertinent imaging results. Radiologist's impression: ITS Impressions Abdomen/Pelvis CT 12/12/23 14:15 IMPRESSION: Borderline dilated appendix without significant periappendiceal inflammation. This is indeterminate for an early acute appendicitis. No additional acute abdominal findings. Electronically authenticated by: ASHKAN POWELL Date: 12/12/2023 17:35 Discharge Plan Discharge Chief Complaint: Abdominal Pain Clinical Impression: Abdominal pain, Acute appendicitis Patient Disposition: Admitted as Observation Time of Disposition Decision: 17:49 Prescriptions / Home Meds: No Action phenazopyridine [Pyridium] 200 mg tablet 200 mg PO Q8H 2 Days Qty: 6 0RF ketorolac 10 mg tablet 10 mg PO TID PRN (Reason: pain) Qty: 10 0RF oxycodone-acetaminophen [Percocet] 5-325 mg tablet 1 tab PO Q6H PRN (Reason: pain) 3 Days Qty: 12 0RF Rx Instructions: DX: R10.9 cephalexin 500 mg capsule 500 mg PO Q8H 7 Days Qty: 21 0RF ondansetron 4 mg tablet,disintegrating 4 mg PO Q6H PRN (Reason: nausea and vomiting) Qty: 12 0RF Print Language: Arabic Referrals: HOLLY RAMIREZ [Primary Care Provider] - 1 week
--- OUTSIDE RECORDS SUMMARY | 2023-12-12 14:21 | XMS_ITS | CCD ---
Author Organization [facility] Inform ion Partnership PATIENT CARE ASSOCIATE [facility] Care Team Providers Care Elevator Serviceman Name Role Phone Unavailable Primary Care Provider ELHAM Greer Referring Unavailable Jocelynn Koo Attending HOLLY Thornton Attending Unavailable Allergies Allergy Classification Reported Allergen(s) Allergy Type Date of Onset Reaction(s) Facility (1 source) No Known Medication Allergies; Translations: [No Known Medication Allergies] Propensity to adverse reactions to drug (disorder) [facility] Repository Medications Current Medications Medication Drug Class(es) [...] Quanton 06-08-2020 HCG, Quant <1 Normal <5 [facility] Comment on above: Result Comment: Non-preg [...] liver. Performed By: #### B HCG #### [facility] [address] [place] [address] Laundry Manager: Dragan Cabello MD HCG, Quantitative, on 06-08-2020 hCG Quant <1 <5 IU/L [employer] Work Phone: Comment on above: Non-preg premeno [...] End: 04-11-2022 ambulatory Jocelynn Montanezapolonia Facility: [facility] Start: 06-08-2020 End: 06-09-2020 Patient encounter procedure ELHAM BURCH [facility] Start: 06-08-2020 End: 06-08-2020 Subsequent hospital visit by physician CARLEEN Daniels OB and POWER AND RECOVERY SUPERVISOR Comment on above: Late menses Procedures Date Procedure Procedure Detail Performing Clinician Start: 06-08-2020 Gonadotropin chorion ic quantitative Elham Burch Plan of Treatment Date Care Activity Detail Author Start: 10-26-2020 Influenza vaccination [facility] vacc [facility]e [facility] Start: 08-16-2020 End: 08-16-2020 Ancillary Procedure [facility]etric[facility]ne[facility] Start: 2015 Screening for malign ant neoplasm of cervix Cervical cancer screen [facility]: Start: 2013 DTaP/Tdap/Td vaccine (1 - Tdap) DTaP/Tdap/Td vaccine (1 - Tdap) [facility] Phone: Start: 2010 COVID-19 Vaccine (1) COVID-19 Vaccin e (1) [facility]: Start: 2009 HIV screening HIV screen [facility] Work Phone: Start: 2005 HPV vaccine (1 - 2-d ose series) HPV vaccine (1 - 2-dose series) [facility]: Start: 1995 Varicella vaccine (1 of 2 - 2-dose childhood series) Varicella vaccine (1 of 2 - 2-dose childhood series) [employer] Phone: Start: 1994 Hepatitis C screening Hepatitis C sc eleni [employer] Phone: Payers Date Payer Category Payer Medicaid [id number] 2020 Private Health Insurance 2019 Private Health Insurance [id number] 1994 Unknown [id number] 1994 Unknown [id number] 1994 Unknown [id number] Social History Date Type Detail Facility Start: 06-08-2020 Tobacco smoking stat [facility] Former smoker [employer] Phone: Start: 06-08-2020 Tobacco use and exposure Never used [employer] Phone: Start: 06-08-2020 Alcohol intake Current drinke r of alcohol (finding) [employer] Phone: Start: 06-08-2020 Alcohol Comment occasional [employer] Work Phone: Sex Assigned At Not on file [employer] Phone: Clinical Note 04-02-2022 Note Date & Type Note Facility 04-02-2022 Note Patient Education Ma terials Name: Delicia Siddiqui Current Date: 04/02/2022 11:25:10 [place] : 1995 The following sheet(s) are the Patient Education Leaflets for Delicia Siddiqui Guide Domestic Tour The Range of Pap Test Results When [...] endocervical adenocarcinoma in situ, or adenocarcinoma.) ? 7424-2454 The [employer]. [address] [place] [address], [place] [address]. All rights reserved. This information is not [...] breast self-examination (BSE). These experts include the [place] [employer], the U.S. Preventive Services Task Force, and the [place] Congress of Obstetricians and Gynecologists. Some experts [...] ? Nipple discharg (more content not included)... [facility] Assessments Diagnosis Late menses Other disorder of menstruation and other abnormal bleeding from female genital tract Summary Purpose Family History No Family History Records FoundNo Family History Records FoundNo Family History Records Found Advance Directives No Advanced Directives Records FoundNo Advanced Directives Records FoundNo Advanced Directives Records Found Additional Source Comments INFORMATION SOURCE (unrecogn ized section and content) DATE CREATED AUTHOR 06/09/2020 [facility] DATE CREATED AUTHOR AUTHOR'S ORGANIZ ATION 04/11/2022 [facility] DATE CREATED AUTHOR AUTHOR'S ORGANIZ ATION 08/30/2023 [facility] EPIC FOR RECORDS PERTAINING TO PATIENTS [...] BE BASED ON THE PRIMARY CLINICAL RECORDS. [facility] [employer] [facility]. provides no warranty or guarantee of the accuracy or completeness of information in this document.
[2023-12-12 14:33] LABS: Basophils Absolute Auto 0.1 10^3/uL (0.0-0.1); Basophils Percent Auto 1.1 % (0.2-2.0); Eosinophils Absolute Auto 0.1 10^3/uL (0.0-0.7); Eosinophils Percent Auto 1.3 % (0.9-7.0); Hematocrit 42.4 % (36.0-48.0); Hemoglobin 14.3 g/dL (12.0-16.0); Immature Granulocytes Abs Auto 0.01 10^3/uL (0.00-0.03); Immature Granulocytes Pct Auto 0.1 % (0.0-0.5); Lymphocytes Absolute Auto 1.5 10^3/uL (1.2-3.8); Lymphocytes Percent Auto 21.1 % (20.5-60.0); Mean Corpuscular HGB Conc 33.7 g/dL (29.9-35.2); Mean Corpuscular Hemoglobin 30.1 pg (26.7-34.0); Mean Corpuscular Volume 89.3 fL (81.0-99.0); Mean Platelet Volume 10.6 fL (9.5-13.5); Monocytes Absolute Auto 0.6 10^3/uL (0.3-0.8); Monocytes Percent Auto 8.6 % (1.7-12.0); Neutrophils Absolute Auto 4.8 10^3/uL (1.4-6.5); Neutrophils Percent Auto 67.8 % (43.0-75.0); Platelet Count 242 10^3/uL (150-450); Red Blood Count 4.75 10^6/uL (4.20-5.40); Red Cell Distribution Width 12.6 % (11.0-15.0); White Blood Count 7.1 10^3/uL (4.0-11.0)
[2023-12-12] MEDS: 0.9 % SODIUM CHLORIDE 1,000 ML 1000 ML IV (14:34)
[2023-12-12] MEDS: ONDANSETRON PF 4 MG/2 ML VIAL IV ×2 (14:34→20:46)
[2023-12-12] MEDS: HYDROMORPHONE HCL 1 MG/ML CARTRIDGE IV (14:34)
[2023-12-12 14:37] LABS: Bilirubin Urine NEGATIVE (NEGATIVE); Blood Urine NEGATIVE (NEGATIVE); Clarity Urine CLEAR (CLEAR); Color Urine LT. YELLOW (YELLOW); Glucose Urine UA NEGATIVE (NEGATIVE); Ketones Urine NEGATIVE (NEGATIVE); Leukocyte Esterase Urine NEGATIVE (NEGATIVE); Nitrite Urine NEGATIVE (NEGATIVE); Protein Urine NEGATIVE (NEG/TRACE); Specific Gravity Urine 1.025 (1.005-1.025); Urobilinogen Urine 0.2 EU/dL (0.2-1.0)
[2023-12-12 14:39] LABS: Urine Microscopic Indicated NO
[2023-12-12 14:44] LABS: HCG Qualitative NEGATIVE (NEGATIVE); Internal Control Within Normal Limits
[2023-12-12 14:47] LABS: INR 1.04
[2023-12-12 15:02] LABS: Alanine Aminotransferase 14 U/L (14-59); Albumin Globulin Ratio 1.2; Albumin Level 4.1 g/dL (3.4-5.0); Alkaline Phosphatase 52 U/L (46-116); Anion Gap 14.7; Aspartate Amino Transferase 11 U/L (15-37); Bilirubin Total 0.5 mg/dL (0.2-1.0); Calcium 9.4 mg/dL (8.5-10.1); Carbon Dioxide 27.1 mmol/L (21.0-32.0); Chloride 103 mmol/L (98-107); Estimated GFR (African America >60 (>=60 mL/min/1.73m^2); Estimated GFR (Non-African Ame >60 (>=60 mL/min/1.73m^2); Globulin 3.4 g/dL; Glucose 87 mg/dL (74-106); Potassium 3.8 mmol/L (3.5-5.1); Sodium 141 mmol/L (136-145); Total Protein 7.5 g/dL (6.4-8.2)
[2023-12-12] MEDS: MORPHINE SULFATE 4 MG/ML VIAL IV (16:57)
[2023-12-12] MEDS: IMIPENEM/CILASTATIN SODIUM 1,000 MG in 0.9 % SODIUM CHLORIDE 100 ML 100 MG IV (18:10)
--- NOTE | 2023-12-12 18:34 | PM.HP ---
HPI H&P: HPI History of Present Illness Chief complaint: ABDOMINAL PAIN ACUTE APPENDICITIS Narrative: Delicia Siddiqui is a 28 y/o female that presented to ER with RLQ pain x [address] shows possible early appendicitis. Pt. has RLQ pain at McBurney's point. She has been anorexic for the last 4 days. She has had mild nausea and bloating. She has been passing mucus per stool. She has had some chills but no fever. He was under to the ED. She has a history of attention deficit disorder and takes medication for that. 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 She has an 11-year-old daughter. Opioid HPI Opioid Management Most Recent Pain and Opioid Data: Last Pain Scale 8 12/12/23 16:57 12/12/23 Last APR Pain Assessment 12/12/23 16:57 Review of Systems ROS Status of ROS 10 or more systems reviewed and unremarkable except as noted in history and below Meds Home Medications and Allergies Allergies Allergy/AdvReac Type Severity Reaction Status Date / Time No Known Drug Allergies Allergy Verified 06/26/23 02:37 Exam Constitutional Vital Signs, click to edit/add: Last Vital Signs Temp 98.1 F 12/12/23 14:01 Pulse 74 12/12/23 16:27 Resp 18 12/12/23 16:27 BP 104/71 12/12/23 16:27 Pulse Ox 99 12/12/23 16:27 O2 Del Method Room Air 12/12/23 14:01 Documenting provider has reviewed patient's vital signs: yes Common normals: no apparent distress, average body habitus, oriented x3, no limitations, healthy appearing, alert and well nourished Eye Common normals: PERRL, EOMs intact bilaterally, conjunctivae normal and no scleral icterus Respiratory Auscultation: clear to auscultation bilaterally Cardio Common normals: regular rate and regular rhythm GI Common normals: Normal to inspection, nondistended, normoactive bowel sounds present and soft to palpation Palpation: tender Details: RLQ and McBurney's point Results Labs Labs: Short CBC 12/12/23 Range/Units 14:25 WBC 7.1 (4.0-11.0) 10^3/uL Hgb 14.3 (12.0-16.0) g/dL Hct 42.4 (36.0-48.0) % Plt Count 242 (150-450) 10^3/uL BMP 12/12/23 14:06 Sodium 141 Potassium 3.8 Chloride 103 Carbon Dioxide 27.1 BUN 12.0 Creatinine 0.92 Glucose 87 Calcium 9.4 Liver Function 12/12/23 Range/Units 14:06 Total Bilirubin 0.5 (0.2-1.0) mg/dL AST 11 L (15-37) U/L ALT 14 (14-59) U/L Alkaline Phosphatase 52 (46-116) U/L Albumin 4.1 (3.4-5.0) g/dL Urine 12/12/23 Range/Units 14:06 Urine Color Lt. yellow (YELLOW) Urine Clarity Clear (CLEAR) Urine pH 6.0 (5.0-9.0) Ur Specific [place] 1.025 (1.005-1.025) Urine Protein Negative (NEG/TRACE) mg/dL Urine Glucose (UA) Negative (NEGATIVE) mg/dL Imaging CT scan - abdomen: Attestation: I have reviewed the pertinent imaging results. Assessment and Plan Assessment and Plan (1) Acute appendicitis: Plan Laparoscopic appendectomy with possible open appendectomy.Risks, benefits and alternatives to surgery may include infection, post op abscess, bleeding, blood clots to legs or lungs pneumonia, stroke, or .Pt. agreed to surgery.
--- OUTSIDE RECORDS SUMMARY | 2023-12-12 19:16 | XMS_ITS | CCD ---
Author Organization [facility] Inform ion Partnership JUNIOR BUSINESS ANALYST [facility] Care Team Providers Care Desizing Machine Back Tender Name Role Phone Unavailable Primary Care Provider ELHAM Greer Referring Unavailable Jocelynn Koo Attending HOLLY Thornton Attending Unavailable Allergies Allergy Classification Reported Allergen(s) Allergy Type Date of Onset Reaction(s) Facility (1 source) No Known Medication Allergies; Translations: [No Known Medication Allergies] Propensity to adverse reactions to drug (disorder) [facility] Repository Medications Current Medications Medication Drug [...] Quanton 06-08-2020 HCG, Quant <1 Normal <5 [facility] Comment on above: Result Comment: Non-preg [...] liver. Performed By: #### B HCG #### [employer] [address] [place] [address] Test Lead: Dragan Cabello MD HCG, Quantitative, on 06-08-2020 hCG Quant <1 <5 IU/L [employer] Work Phone: Comment on above: Non-preg premeno [...] End: 04-11-2022 ambulatory Jocelynn Montanezapolonia Facility: [facility] Start: 06-08-2020 End: 06-09-2020 Patient encounter procedure ELHAM BURCH [facility] Start: 06-08-2020 End: 06-08-2020 Subsequent hospital visit by physician CARLEEN Daniels OB and VENDING ENTERPRISES SUPERVISOR Comment on above: Late menses Procedures Date Procedure Procedure Detail Performing Clinician Start: 06-08-2020 Gonadotropin chorion ic quantitative Elham Burch Plan of Treatment Date Care Activity Detail Author Start: 10-26-2020 Influenza vaccination [facility] vacc ine ([facility]ed[facility]: Start: 08-16-2020 End: 08-16-2020 Ancillary Procedure [facility] Obstetrics & Gynecology Start: 2015 Screening for malign ant neoplasm of cervix Cervical cancer screen [facility] Phone: Start: 2013 DTaP/Tdap/Td vaccine (1 - Tdap) DTaP/Tdap/Td vaccine (1 - Tdap) [facility] Phone: Start: 2010 COVID-19 Vaccine (1) COVID-19 Vaccin e (1) [facility] Phone: Start: 2009 HIV screening HIV screen [facility] Work Phone: Start: 2005 HPV vaccine (1 - 2-d ose series) HPV vaccine (1 - 2-dose series) [facility] Phone: Start: 1995 Varicella vaccine (1 of 2 - 2-dose childhood series) Varicella vaccine (1 of 2 - 2-dose childhood series) [employer] Phone: Start: 1994 Hepatitis C screening Hepatitis C sc eleni [facility] Phone: Payers Date Payer Category Payer Medicaid [id number] 2020 Private Health Insurance 2019 Private Health Insurance [id number] 1994 Unknown [id number] 1994 Unknown [id number] 1994 Unknown [id number] Social History Date Type Detail Facility Start: 06-08-2020 Tobacco smoking stat [facility] Former smoker [employer] Phone: Start: 06-08-2020 Tobacco use and exposure Never used [employer] Phone: Start: 06-08-2020 Alcohol intake Current drinke r of alcohol (finding) [employer] Phone: Start: 06-08-2020 Alcohol Comment occasional [place] [email or web address] Work Phone: Sex Assigned At Not on file [employer] Phone: Clinical Note 04-02-2022 Note Date & Type Note Facility 04-02-2022 Note Patient Education Ma terials Name: Delicia Siddiqui Current Date: 04/02/2022 11:25:10 [place] : 1995 The following sheet(s) are the Patient Education Leaflets for Delicia Siddiqui Chief Resource Officer The Range of Pap Test Results When [...] endocervical adenocarcinoma in situ, or adenocarcinoma.) ? 4751-4373 [employer]. [address] [place] [address], [place] [address]. All rights reserved. This information is not [...] breast self-examination (BSE). These experts include the [place] [employer], the U.S. Preventive Services Task Force, and the [place] [employer] of Obstetricians and Gynecologists. Some experts [...] ? Nipple discharg (more content not included)... [facility] Assessments Diagnosis Late menses Other disorder of menstruation and other abnormal bleeding from female genital tract Summary Purpose Family History No Family History Records FoundNo Family History Records FoundNo Family History Records Found Advance Directives No Advanced Directives Records FoundNo Advanced Directives Records FoundNo Advanced Directives Records Found Additional Source Comments INFORMATION SOURCE (unrecogn ized section and content) DATE CREATED AUTHOR 06/09/2020 [facility] DATE CREATED AUTHOR AUTHOR'S ORGANIZ ATION 04/11/2022 [facility] DATE CREATED AUTHOR AUTHOR'S ORGANIZ ATION 08/30/2023 [facility] EPIC FOR RECORDS PERTAINING TO [...] BE BASED ON THE PRIMARY CLINICAL RECORDS. [facility]. provides no warranty or guarantee of the accuracy or completeness of information in this document.
--- NOTE | 2023-12-12 19:25 | P.GSPRC_ITS ---
Date of procedure: 12/12/23 Indications for Procedure: Acute appendicitis Pre-op diagnosis: Acute appendicitis Post-op diagnosis: same as pre-op Procedure: Laparoscopic appendectomy Findings: Acute appendicitis Anesthesia: LEIDY Surgeon: Kj Mcclelland Procedure Summary: LAPAROSCOPIC APPENDECTOMY The patient was taken to the operating suite, placed in the supine position and given a general anesthetic by the anesthesiologist. The abdomen was prepped and draped in the usual sterile fashion. A subumbilical incision was made down to the anterior rectus fascia and was opened in the midline and traction sutures of #0 Vicryl were placed. The peritoneal cavity was entered and the Daniel port was placed into the abdominal cavity. The abdomen was insufflated with carbon dioxide to 15 mmHg pressure. The laparoscope was then placed with an acute appendix found when the patient was placed in Trendelenburg position. A 12 mm port was placed in the left lower quadrant and another 12 mm port was placed in the right upper quadrant all under direct visualization. A grasper was placed on the mesoappendix and it was held anteriorly on traction and then a curved dissector was used to dissect a window in the mesoappendix and then an Endo-BELÉN stapling device was fired across the base of the appendix with the cecum. The mesoappendix was taken down with the LigaSure device. . Hemostasis being maintained, all ports were then removed after the appendix had been removed in a bag. Anterior rectus fascia was closed with #0 Vicryl suture in an interrupted fashion and the other two port sites were also closed with #0 Vicryl suture in an interrupted fashion. 0.5% Marcaine 30 cc was used to anesthetize subcutaneous tissue. Skin was closed with 4 oh Monocryl in a running subcuticular fashion. Sponge, needle and instrument counts were correct. Case was clean, contaminated emergency. Blood loss was minimal Specimen - Appendix The patient went to recovery room in satisfactory condition. Tractor Engine Assembler: ANDRÉS Arora Estimated blood loss (mL): 1 Specimens: Appendix Complications: No Condition: stable Disposition: PACU
[2023-12-12] MEDS: BUPIVACAINE HCL 0.5% PF 50 MG/10 ML VIAL 20 ML INJ (20:11)
[2023-12-12] MEDS: HYDROMORPHONE HCL 0.5 MG/0.5 ML SYRINGE IV ×3 (20:44→21:08)
[2023-12-12] MEDS: CELECOXIB 200 MG CAPSULE PO (21:33)
[2023-12-12] MEDS: OXYCODONE HCL/ACETAMINOPHEN 5MG/325MG 1 TAB PO (21:33)
[2023-12-12] MEDS: LACTATED RINGER'S SOLUTION 1,000 ML 50 ML IV (23:20)
[2023-12-13 01:19] VITALS: BP 105/56; PULSE 66; TEMP 36.7; O2SAT 94
[2023-12-13] MEDS: OXYCODONE HCL/ACETAMINOPHEN 5MG/325MG 1 TAB PO ×2 (03:14→08:56)
[2023-12-13 04:00] VITALS: BP 94/60; PULSE 63; TEMP 36.5; O2SAT 94
[2023-12-13] MEDS: ONDANSETRON PF 4 MG/2 ML VIAL IV (07:29)
[2023-12-13 08:00] VITALS: BP 110/54; PULSE 90; TEMP 36.3; O2SAT 95
[2023-12-13] MEDS: CELECOXIB 200 MG CAPSULE PO (08:56)
--- NOTE | 2023-12-16 12:02 | CM.DCFOLLOWU ---
Phone number not in service, 12/16/23
== END 2023-12-13 09:47 | disposition home or self-care (01) ==
LOC: ER 17:49 → MS 19:13
PROVIDERS: Physician Assistant; Admitting Provider Surgery; Emergency Provider Emergency Medicine; Family Provider Family Medicine; PCP Internal Medicine; Visit Provider Surgery
PROC: (CPT 840; principal; 2023-12-12 19:30)
DX: K35.80 Unspecified acute appendicitis (principal); F98.8 Other specified behavioral and emotional disorders with onset usually occurring in childhood and adolescence; Z79.899 Other long term (current) drug therapy
CPT/HCPCS: 44970; 36415; 74177; 80053; 81003; 83605; 84703; 85025; 85610; 88304; 96365; 96375; 96376; 99285; G0378; J0665; J0743; J1100; J1171; J1885; J2250; J2270; J2405; J2704; J3010; Q9966; Q9967

== ENCOUNTER 2024-06-18 21:28 | Emergency (ER) | payer OTHER, SELFPAY ==
[2024-06-18 21:36] VITALS: BP 122/78; PULSE 122; TEMP 36.8; O2SAT 97; BMI 21.0
--- NOTE | 2024-06-18 22:05 | ED.GENADUL1 ---
HPI HPI - General Adult General Chief complaint: Headache Stated complaint: Headache 12 week Time Seen by Provider: 06/18/24 21:55 Source: patient Mode of arrival: walk-in Limitations: no limitations History of Present Illness HPI narrative: . history of migraines. Seen yesterday by OB states BP was mildly elevated and some protein in her urine. No intervention at this time. Migraine for 2 days. left side of her head. She has history of migraines and is certain this is one. Nausea but no vomiting. No stiff neck or fever Related Data Allergies Allergy/AdvReac Type Severity Reaction Status Date / Time No Known Drug Allergies Allergy Verified 06/18/24 21:36 Opioid HPI Opioid Management Most Recent Opioid Data: Last Pain Scale 6 12/13/23 08:59 12/13/23 Last ORT Total Score 3 12/12/23 22:02 12/12/23 Last ORT Risk Category Low Risk 12/12/23 22:02 12/12/23 Review of Systems ROS Status of ROS 10 or more systems reviewed and unremarkable except as noted in history and below PFSH [facility] Medical History (Updated 06/18/24 @ 23:22 by Raffy Alberto MD) Attention deficit disorder (ADD) in adult ?F98.8 - Other specified behavioral and emotional disorders with onset usually occurring in childhood and adolescence (ICD-10) Social History (Updated 12/12/23 @ 22:13 by Vera Porter RN) Within the past year, how often did you have a drink containing alcohol: monthly or less Within the past year, how many standard drinks containing alcohol did you have on a typical day: 1 or 2 Within the past year, how often did you have six or more drinks on one occasion: less than monthly Total score: 1 Score interpretation: A score less than 3 is consistent with normal alcohol consumption. Smoking status: Current some day smoker Do you use any of these nicotine containing products: e-cigarettes and vaping products Non-prescribed substance use: cannabis (any form) Highest level of school completed/degree received: GED or equivalent Are you now , , , , never or living with a partner: never In a typical week, how many times do you talk on the telephone with family, friends, or neighbors: 3 or more times per week How often do you get together with friends or relatives: 3 or more times per week How often do you attend holiness or anabaptist services: never Little interest or pleasure in doing things: not at all Feeling down, depressed, or hopeless: not at all Feel stressed/tense/nervous/anxious/difficulty sleeping: not at all Gender Identity: female Exam Constitutional Vital Signs, click to edit/add: Last Vital Signs Temp 98.2 F 06/18/24 21:36 Pulse 122 H 06/18/24 21:36 Resp 20 06/18/24 21:36 BP 122/78 06/18/24 21:36 Pulse Ox 97 06/18/24 21:36 O2 Del Method Room Air 06/18/24 21:36 Common normals: no apparent distress, average body habitus, oriented x3, no limitations, healthy appearing, alert and well nourished HENMT Common normals: normocephalic and head/scalp atraumatic Eye Common normals: PERRL, EOMs intact bilaterally and conjunctivae normal Respiratory Common normals: normal respiratory effort, no retractions, no use of accessory muscles and clear to auscultation bilaterally Cardio Common normals: S1 normal heart sound and S2 normal heart sound Rate: tachycardic GI Common normals: Normal to inspection, nondistended, normoactive bowel sounds present and soft to palpation Extremity Common normals: normal to inspection, full ROM and no pedal edema Neuro Common normals: oriented x3, CN's II-XII intact bilaterally, moves all extremities and no focal motor deficits Psych Appearance: grossly normal Course Vital Signs Vital signs: Vital Signs Temperature 98.2 F 06/18/24 21:36 Pulse Rate 122 H 06/18/24 21:36 Respiratory Rate 20 06/18/24 21:36 Blood Pressure 122/78 06/18/24 21:36 Pulse Oximetry 97 06/18/24 21:36 Oxygen Delivery Method Room Air 06/18/24 21:36 Temperature 98.2 F 06/18/24 21:36 Pulse Rate 122 H 06/18/24 21:36 Respiratory Rate 20 06/18/24 21:36 Blood Pressure 122/78 06/18/24 21:36 Pulse Oximetry 97 06/18/24 21:36 Oxygen Delivery Method Room Air 06/18/24 21:36 Medical Decision Making MDM Narrative Medical decision making narrative: patient presents with migraine headache. past history of similar migraines. CBC and BMP WNL. patient medicated and now is feeling better. Discharged home in improved condition Lab Data Labs: Lab Results 06/18/24 Range/Units 22:15 WBC 8.3 (4.0-11.0) 10^3/uL RBC 3.88 L (4.20-5.40) 10^6/uL Hgb 11.5 L (12.0-16.0) g/dL Hct 33.9 L (36.0-48.0) % MCV 87.4 (81.0-99.0) fL MCH 29.6 (26.7-34.0) pg MCHC 33.9 (29.9-35.2) g/dL RDW 12.3 (11.0-15.0) % Plt Count 225 (150-450) 10^3/uL MPV 11.3 (9.5-13.5) fL Neut % (Auto) 76.1 H (43.0-75.0) % Lymph % (Auto) 15.6 L (20.5-60.0) % Osborne % (Auto) 7.2 (1.7-12.0) % Eos % (Auto) 0.5 L (0.9-7.0) % Baso % (Auto) 0.4 (0.2-2.0) % Neut # (Auto) 6.3 (1.4-6.5) 10^3/uL Lymph # (Auto) 1.3 (1.2-3.8) 10^3/uL Osborne # (Auto) 0.6 (0.3-0.8) 10^3/uL Eos # (Auto) 0.0 (0.0-0.7) 10^3/uL Baso # (Auto) 0.0 (0.0-0.1) 10^3/uL Abs Immat Gran (auto) 0.02 (0.00-0.03) 10^3/uL Imm/Tot Granulo (auto) 0.2 (0.0-0.5) % Sodium 140 (136-145) mmol/L Potassium 3.9 (3.5-5.1) mmol/L Chloride 105 (98-107) mmol/L Carbon Dioxide 27.3 (21.0-32.0) mmol/L Anion Gap 11.6 BUN 10.0 (7.0-18.0) mg/dL Creatinine 0.60 (0.55-1.02) mg/dL Est GFR ( Amer) >60 (>=60 mL/min/1.73m^2) Est GFR (Non-Af Amer) >60 (>=60 mL/min/1.73m^2) BUN/Creatinine Ratio 16.7 Glucose 84 (74-106) mg/dL Calcium 8.9 (8.5-10.1) mg/dL Discharge Plan Discharge Chief Complaint: Headache Clinical Impression: Migraine Patient Disposition: Home, Self-Care Print Language: Kinyarwanda Instructions: Migraine Headache (ED) Referrals: HOLLY RAMIREZ [Primary Care Provider] - 1 week
[2024-06-18] MEDS: METOCLOPRAMIDE HCL 10 MG/2 ML VIAL IVP (22:27)
[2024-06-18] MEDS: METHYLPREDNISOLONE SOD SUCC PF 125 MG/2 ML VIAL IVP (22:27)
[2024-06-18 22:39] LABS: Basophils Percent Auto 0.4 % (0.2-2.0); Eosinophils Percent Auto 0.5 % (0.9-7.0); Hematocrit 33.9 % (36.0-48.0); Hemoglobin 11.5 g/dL (12.0-16.0); Immature Granulocytes Abs Auto 0.02 10^3/uL (0.00-0.03); Immature Granulocytes Pct Auto 0.2 % (0.0-0.5); Lymphocytes Absolute Auto 1.3 10^3/uL (1.2-3.8); Lymphocytes Percent Auto 15.6 % (20.5-60.0); Mean Corpuscular HGB Conc 33.9 g/dL (29.9-35.2); Mean Corpuscular Hemoglobin 29.6 pg (26.7-34.0); Mean Corpuscular Volume 87.4 fL (81.0-99.0); Mean Platelet Volume 11.3 fL (9.5-13.5); Monocytes Absolute Auto 0.6 10^3/uL (0.3-0.8); Monocytes Percent Auto 7.2 % (1.7-12.0); Neutrophils Absolute Auto 6.3 10^3/uL (1.4-6.5); Neutrophils Percent Auto 76.1 % (43.0-75.0); Platelet Count 225 10^3/uL (150-450); Red Blood Count 3.88 10^6/uL (4.20-5.40); Red Cell Distribution Width 12.3 % (11.0-15.0); White Blood Count 8.3 10^3/uL (4.0-11.0)
[2024-06-18 22:54] LABS: Anion Gap 11.6; BUN Creatinine Ratio 16.7; Calcium 8.9 mg/dL (8.5-10.1); Carbon Dioxide 27.3 mmol/L (21.0-32.0); Chloride 105 mmol/L (98-107); Estimated GFR (African America >60 (>=60 mL/min/1.73m^2); Estimated GFR (Non-African Ame >60 (>=60 mL/min/1.73m^2); Glucose 84 mg/dL (74-106); Potassium 3.9 mmol/L (3.5-5.1); Sodium 140 mmol/L (136-145)
[2024-06-18 23:48] VITALS: BP 122/80; PULSE 81; O2SAT 98
== END 2024-06-18 23:51 | disposition home or self-care (01) ==
PROVIDERS: Emergency Provider Internal Medicine; Family Provider Family Medicine; PCP Internal Medicine
DX: O99.891 Other specified diseases and conditions complicating pregnancy (principal); G43.909 Migraine, unspecified, not intractable, without status migrainosus; Z3A.12 12 weeks gestation of pregnancy; O99.331 Smoking (tobacco) complicating pregnancy, first trimester; F17.290 Nicotine dependence, other tobacco product, uncomplicated
CPT/HCPCS: 36415; 80048; 85025; 96374; 96375; 99284; J2765; J2919

== ENCOUNTER 2024-12-31 20:36 | Emergency (ER) | payer OTHER, SELFPAY ==
--- OUTSIDE RECORDS SUMMARY | 2023-10-03 08:00 | XMS_ITS ---
Author Organization [facility] Address [address] [place] [address] Care Team Providers Care Pipe Recovery Specialist Name Role Phone Dr. Epifanio Velázquez Primary Care Provider REASON FOR VISIT NEW PT EXAM Encounters Encounter Location Date Provider Diagnosis [facility] [address] [place] [address] 10/03/2023 Epifanio Velázquez Plan Of Treatment No Information Progress Notes * NELSONGILYUKI MAURERIEDOB:[birth year] (29 yo F)Acc No.[id number]:10/03/2023 Patient:?SAMI DOSS :?Epifanio Velázquez DDSDOB:1995???Age:28 Y???Sex: FemaleDate:4Phone:[phone]:[address] [id number] Subjective: * Chief Complaints: * N EW PT EXAM * Electronic signature of Dr. Epifanio Velázquez , DMD, [id number] on 12/31/2024 at 09:23 PM ESTSign off status: Pending * Provider: Malcom Velázquez DDS Date: 0 10/03/2023 Generated for Printing/Faxing/eTransmitting on:?12/31/2024 09:23 PM EST
--- OUTSIDE RECORDS SUMMARY | 2024-12-18 09:45 | XMS_ITS | Encounter Summary ---
Author Organization [facility] tem Address [id number] [address] [place] [address] Care Team Providers Care Mountain Services Manager Name Role Phone Carloz Nelson MD Primary Care Provider [phone] Reason for Visit * ReasonCommentsRoutine Visit Encounter Details DateTypeDepartmentCare Team (Latest Contact Info)Wvhwnlzxpea67/24/2025 10:45 AM EDTRoutine [facility] [address] [place] [phone] Sanjuanita Nguyen, INFORMATION MANAGEMENT MANAGER-BRIM STRETCHER [address] [place], [place] [id number] GA: 38w2d Social History Tobacco UseTypesPacks/DayYears UsedDateSmoking Tobacco: NeverPassive Smoke Exposure: NeverSmokeless Tobacco: NeverAlcohol UseStandard Drinks/WeekComments Not Currently0 (1 standard drink = 0.6 oz pure alcohol)Overall Financial Resource Strain (CARDIA)AnswerDate RecordedHow hard is it for you to pay for the very basics like food, housing, medical care, and heating?Patient declined 10/15/2024PRAPARE - TransportationAnswerDate RecordedIn the past 12 months, has lack of transportation kept you from medical appointments or from getting medications?Patient cvzekbqr86/21/2025In the past 12 months, has lack of transportation kept you from meetings, work, or from getting things needed for daily living?Patient pqgpygui40/21/2025UDIT-CAnswerDate RecordedQ1: How often do you have a drink containing alcohol?Never12/11/2024Q2: How many drinks containing alcohol do you have on a typical day when you are drinking?Patient does not drink12/11/2024Q3: How often do you have six or more drinks on one occasion?Never12/11/2024Housing InstabilityAnswerDate RecordedAre you worried or concerned that in the next two months you may not have stable housing that you own, rent or stay in as a part of a household?Patient Aemmwtmh89/21/2025 ChildcareAnswerDate BtmghlgjKsnrkyueaBcdagkq69/11/2019EmploymentAnswerDate WmjutdatDafdjdqcadEzjzfxq82/11/2019Hunger ScreeningAnswerDate RecordedWithin the past 12 months we worried whether our food would run out before we got money to buy more.Never True12/11/2024Within the past 12 months the food we bought just didn't last and we didn't have money to get more.Never True12/11/2024 CommentsYesSex and Gender InformationValueDate RecordedSex Assigned at Sjtjru5105/03/2024 6:08 PM EDTLegal TdsUvdbgb72/04/2015 8:25 PM EDTGender Identity Fvyhgi6205/03/2024 6:07 PM EDTSexual OrientationChoose not to oxctrtxf52/09/2025 6:07 PM EDTdocumented as of this encounter Last Filed Vital Signs Vital SignReadingTime TakenCommentsBlood Nnmjqrjo009/7612/18/2024 11:02 AM EDT Pulse--Temperature--Respiratory Rate--Oxygen Saturation--Inhaled Oxygen Concentration--Xtdxpr14.7 kg (158 lb)12/18/2024 11:02 AM EDTHeight--Body Mass Index26.2909 1:13 PM EDTdocumented in this encounter Patient Instructions * Attachments The following attachments cannot be sent through Care Everywhere. * Labor induction (Indonesian) * Jdaa-ja-qpfh care with your (Indonesian) documented in this encounter Progress Notes * YUNG Chris - 12/18/2024 10:45 AM EDT Routine OB visit 29 y.o. at 38w2d. Doing well. Denies contractions, vaginal bleeding, or loss of fluid. Positive movement. Denies headaches or swelling. Patient desires IOL at 39 weeks. She would like to be checked today. 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 plan reviewed as well as pain management options. 2. Reviewed signs of labor and movement. 3. Discussed when to present to labor and delivery. 4. Discussed delayed cord clamping, fkaq-wv-fqyd, early initiation of , rooming in. 5. Discussed current visitation guidelines in L & D. 6. Patient declines flu shot 7. Educational information given. 8. Questions answered. 9. Return 1 week. YUNG Chris 12/18/24 1127 documented in this encounter Plan of Treatment DateTypeDepartmentCare Team (Latest Contact Info)Qalsxfednix36/22/2025 9:00 AM ESTOffice Visit [facility] [address] [place] [address] Nigel Kincaid MD [address] [place] [address] 03/01/2025 10:00 AM ESTOffice Visit [facility] [address] [place] [address] Alice Michel MD [address] [place] [address] documented as of this encounter Visit Diagnoses Diagnosis care, third trimester- Primary documented in this encounter Additional Health Concerns AssessmentNoted TimeA Body Mass Index follow-up plan has been documented for the nvyjwbu3509/08/2024 11:31 AM EDTdocumented as of this encounter Care Teams Team MemberRelationshipSpecialtyStart DateEnd Date Carloz Nelson MD [address] [address] PCP - GeneralInternal Qipsevnc42/30/24documented as of this encounter
--- OUTSIDE RECORDS SUMMARY | 2024-12-18 12:10 | XMS_ITS | Encounter Summary ---
Author Organization [facility] tem Address [id number] [address] [place] [address] Care Team Providers Care Furniture Repairer Name Role Phone Carloz Nelson MD Primary Care Provider [phone] Encounter Details DateTypeDepartmentCare Team (Latest Contact Info)Vujcvdclmxj42/24/2025 1:10 PM EDT - 12/18/2024 11:59 PM EDTHospital Encounter [facility] [address] [place] [phone] Sanjuanita Nguyen, CORRECTIONAL SUPPLY SUPERVISOR-HIM ASSISTANT [address] [place] [address] care, third trimester; Uterine size-date discrepancy in third trimester Discharge Disposition: Home Social History Tobacco UseTypesPacks/DayYears UsedDateSmoking Tobacco: NeverPassive [...] from medical appointments or from getting medications?Patient zdcokpiy66/21/2025In the past 12 months, has lack of transportation kept you from meetings, work, or from getting things needed for daily living?Patient krwtzwyz19/21/2025UDIT-CAnswerDate RecordedQ1: How often do you have a [...] in as a part of a household?Patient Dufmuoav93/21/2025 ChildcareAnswerDate DuhspmseEzvthcwpmXsjsrka71/11/2019EmploymentAnswerDate QhszqdcvYuwxuniuemLkcigrk05/11/2019Hunger ScreeningAnswerDate RecordedWithin the past 12 months we worried whether our food would run out before we got money to buy more.Never True12/11/2024Within the past 12 months the food we bought just didn't last and we didn't have money to get more.Never True12/11/2024 CommentsYesSex and Gender InformationValueDate RecordedSex Assigned at Umevtn9305/03/2024 6:08 PM EDTLegal IhjYvlldw75/04/2015 8:25 PM EDTGender Identity Cpzphq2305/03/2024 6:07 PM EDTSexual OrientationChoose not to ofzpxbgr86/09/2025 6:07 PM EDTdocumented as of this encounter Medications at Time of Discharge MedicationSigDispense QuantityRefillsLast FilledStart DateEnd Date acetaminophen (TYLENOL EXTRA STRENGTH) 500 mg tablet Indications: delivery delivered, care following deliveryTake 2 tablets (1,000 mg total) by mouth every 8 (eight) hours as needed for pain. 60 tablet docusate sodium (COLACE) 100 mg capsule Indications: delivery delivered, care following deliveryTake 1 capsule (100 mg total) by mouth 2 (two) times a day as needed for constipation. 10 capsule doxycycline (VIBRAMYCIN) 100 mg capsule Indications: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Take 1 capsule (100 mg total) by mouth in the morning and 1 capsule (100 mg total) before bedtime. Do all this for 7 days. 13 capsule 5103/05/2024 ibuprofen (MOTRIN) 800 mg tablet Indications: delivery delivered, care following deliveryTake 1 tablet (800 mg total) by mouth every 8 (eight) hours as needed for pain. 30 tablet magnesium oxide (MAGOX) 400 mg tablet Indications:Restless leg syndrome in ,Sleep disturbanceTake 1 tablet (400 mg total) by mouth nightly. 30 tablet PNV no.95/ferrous fum/folic ac ( ORAL) Take by mouth. oxyCODONE (ROXICODONE) 5 mg immediate release tablet Indications: delivery delivered, care following deliveryTake 1 tablet (5 mg total) by mouth every 6 (six) hours as needed for pain for up to 3 days. Max Daily Amount: 20 mg 12 tablet documented as of this encounter Plan of Treatment DateTypeDepartmentCare Team (Latest Contact Info)Xrpdvprhxsd37/22/2025 9:00 AM ESTOffice Visit [facility] [address] [place] [phone] Nigel Kincaid MD [address] [place] [address] 03/01/2025 10:00 AM ESTOffice Visit [facility] [address] [place] [phone] Alice Michel MD [address] [place] [address] documented as of this encounter Procedures Procedure NamePriorityDate/TimeAssociated DiagnosisCommentsUS PREG TRANSABD FU PER TKDWYuipbtz77/24/2025 2:31 PM EDT care, third trimester Uterine size-date discrepancy in third trimester documented in this encounter Results * Ultrasound transabdominal follow up per fetus (12/18/2024 2:31 PM EDT)Anatomical RegionLateralityModalityOB-GYNUltrasoundSpecimen (Source) Anatomical Location / LateralityCollection Method / VolumeCollection Time Received Time12/21/2024 10:24 AM EDT Narrative 12/21/2024 10:26 AM EDT Clinical history: Size and dates Single live IUP at ??38 weeks 4 days BIOMETRY: ?? BPD: ? 9.55 cm/39 weeks 0 days HC: ? 33.95 cm 39 weeks 0 days AC: ?34.4 cm/38 weeks 2 daysk FL: ? 7.4 cm/37 weeks 5 days HC/AC: ?? 0.99 FL/BPD: ??77.2 EFW: ?? 3461 ??gm * ??Heart rate: ??131 bpm * ??FARZANA 15.1 cm/DVP: ??4.9 cm * ??Anterior placenta * ??Position cephalic Impression: Single live IUP at 38 weeks 4 days Finalized by Gabriele Person MD on 12/21/2024 10:26 AM Procedure Note Gabriele Person MD - 12/21/2024 Clinical history: Size and dates Single live IUP at 38 weeks 4 days BIOMETRY: BPD: 9.55 cm/39 weeks 0 days HC: 33.95 cm 39 weeks 0 days AC: 34.4 cm/38 weeks 2 daysk FL: 7.4 cm/37 weeks 5 days HC/AC: 0.99 FL/BPD: 77.2 EFW: 3461 gm * Heart rate: 131 bpm * FARZANA 15.1 cm/DVP: 4.9 cm * Anterior placenta * Position cephalic Impression: Single live IUP at 38 weeks 4 days Finalized by Gabriele Person MD on 12/21/2024 10:26 AM Authorizing ProviderResult TypeResult Dillon Nguyen CORRECTIONAL SUPPLY SUPERVISOR-CNPIMG ORDERABLESFinal Result documented in this encounter Visit Diagnoses Diagnosis care, third trimester Uterine size-date discrepancy in third trimester documented in this encounter Additional Health Concerns AssessmentNoted TimeA Body Mass Index follow-up plan has been documented for the tusbolb5809/08/2024 11:31 AM EDTdocumented as of this encounter Care Teams Team MemberRelationshipSpecialtyStart DateEnd Date Carloz Nelson MD [address] [facility], [facility] [address] [place] [address] PCP - GeneralInternal Zicwvndb03/30/24documented as of this encounter
--- OUTSIDE RECORDS SUMMARY | 2024-12-21 10:00 | XMS_ITS | Encounter Summary ---
Author Organization [facility] tem Address [id number] [address] [place] [address] Care Team Providers Care Bone Grinder Name Role Phone Carloz Nelson MD Primary Care Provider [phone] Reason for Visit * ReasonCommentsRoutine Visit Encounter Details DateTypeDepartmentCare Team (Latest Contact Info)Fdfpljvgmra98/27/2025 11:00 AM EDTRoutine [facility] [address] [facility] [place] [phone] Sanjuanita Nguyen, CLAIM INSPECTOR-MANAGER PAYMENT [address] [place], [place] [id number] GA: 38w5d Social History Tobacco UseTypesPacks/DayYears UsedDateSmoking Tobacco: NeverPassive [...] from medical appointments or from getting medications?Patient /21/2025In the past 12 months, has lack of transportation kept you from meetings, work, or from getting things needed for daily living?Patient /21/2025UDIT-CAnswerDate RecordedQ1: How often do you have a [...] in as a part of a household?Patient Pobnbmrq19/21/2025 ChildcareAnswerDate SptwtaraSarbowwbuVkkjyso00/11/2019EmploymentAnswerDate GyouhgnyLtxyiiexhlRvrjujx91/11/2019Hunger ScreeningAnswerDate RecordedWithin the past 12 months we worried whether our food would run out before we got money to buy more.Never True12/21/2024Within the past 12 months the food we bought just didn't last and we didn't have money to get more.Never True12/21/2024 CommentsYesSex and Gender InformationValueDate RecordedSex Assigned at Uqhlbw8205/03/2024 6:08 PM EDTLegal CnoEcxmws58/04/2015 8:25 PM EDTGender Identity Ikukyt0605/03/2024 6:07 PM EDTSexual OrientationChoose not to mnjwocna93/09/2025 6:07 PM EDTdocumented as of this encounter Last Filed Vital Signs Vital SignReadingTime TakenCommentsBlood Wouhadri432/7612/21/2024 11:05 AM EDT Pulse--Temperature--Respiratory Rate--Oxygen Saturation--Inhaled Oxygen Concentration--Opmrzt22.9 kg (152 lb)12/21/2024 11:05 AM EDTHeight--Body Mass Index25.2909 1:13 PM EDTdocumented in this encounter Patient Instructions * Attachments The following attachments cannot be sent through Care Everywhere. * Labor induction (Slovenian) * How to tell when labor starts (Slovenian) documented in this encounter Progress Notes * YUNG Chris - 12/21/2024 11:00 AM EDT Routine OB visit 29 y.o. at 38w5d. Doing well. Denies regular contractions, vaginal bleeding, or loss of fluid. Positive movement. Denies headaches or swelling. Patient tearful today. Reports increasingpelvic pain and back pain. She desires IOL collette. 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 plan reviewed. 2. Reviewed signs of labor and movement. 3. Discussed when to present to labor and delivery. 4. Cervical ripening scheduled for Saturday at 6pm. Eula in L&D, Courtney Sommer CNM, and Dr Segura notified. 5. Discussed current visitation guidelines in L & D. 6. Patient declines flu shot 7. Educational information given. 8. Questions answered. 9. Return . YUNG Chris 12/21/24 1208 documented in this encounter Plan of Treatment DateTypeDepartmentCare Team (Latest Contact Info)Helajmznxzg78/22/2025 9:00 AM ESTOffice Visit [facility] [address] [place] [phone] Nigel Kincaid MD [address] [place] [address] 03/01/2025 10:00 AM ESTOffice Visit [facility] [address] [facility] [facility] [address] [place] [address] Alice Michel MD [address] [facility] [place] [address] documented as of this encounter Visit Diagnoses Diagnosis care, third trimester- Primary documented in this encounter Additional Health Concerns AssessmentNoted TimeA Body Mass Index follow-up plan has been documented for the rtiwail7609/08/2024 11:31 AM EDTdocumented as of this encounter Care Teams Team MemberRelationshipSpecialtyStart DateEnd Date Carloz Nelson MD [address] [phone] PCP - GeneralInternal Yieencwq35/30/24documented as of this encounter
--- OUTSIDE RECORDS SUMMARY | 2024-12-23 16:28 | XMS_ITS | Encounter Summary ---
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 Name Role Phone Carloz Nelson MD Primary Care Provider Reason for Referral * Misc (Routine) - Pending ReviewSpecialtyDiagnoses / ProceduresReferred By ContactReferred To Contact Procedures /Infant feeding on discharge- Breastmilk Cassandra Saleh APRN-CNM [address] [place] [address], [address] [place] [address] Phone: tel: fax: Referral IDStatusReasonStart DateExpiration DateVisits RequestedVisits [id number] * Misc (Routine) - Pending ReviewSpecialtyDiagnoses / ProceduresReferred By ContactReferred To Contact Procedures Discharge Follow-Up Cassandra Saleh APRN-CNM [address] [facility], [address] [place] [address] Phone: tel: fax: Referral IDStatusReasonStart DateExpiration DateVisits RequestedVisits [id number] Reason for Visit * ReasonCommentsScheduled Induction * Auth/CertSpecialtyDiagnoses / ProceduresReferred By ContactReferred To Contact Joanie Sommer APRN-CNM [address] [place] [address] Phone: tel: fax: Referral IDStatusReasonStart DateExpiration DateVisits RequestedVisits [id number] Encounter Details DateTypeDepartmentCare Team (Latest Contact Info)Xtoviynqufi33/29/2025 5:28 PM EDT - 12/27/2024 12:35 PM ESTHospital Encounter [facility] [address] [place] [id number] Joanie Sommer [facility] [address] [facility] [place], [place] [id number] Del[facility]ard [facility] [address] [place], [place] [id number] delivery delivered (Primary Dx); 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; Restless leg syndrome in ; Sleep disturbance; 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; care following delivery Discharge Disposition: Home Social History Tobacco UseTypesPacks/DayYears UsedDateSmoking Tobacco: NeverPassive Smoke Exposure: NeverSmokeless Tobacco: NeverAlcohol UseStandard Drinks/WeekComments Not Currently0 (1 standard drink = 0.6 oz pure alcohol)Overall Financial Resource Strain (CARDIA)AnswerDate RecordedHow hard is it for you to pay for the very basics like food, housing, medical care, and heating?Patient declined 10/15/2024UDIT-CAnswerDate RecordedQ1: How often do you have a drink containing alcohol?Never12/11/2024Q2: How many drinks containing alcohol do you have on a typical day when you are drinking?Patient does not drink12/11/2024Q3: How often do you have six or more drinks on one occasion?Never12/11/2024PRAPARE - TransportationAnswerDate RecordedIn the past 12 months, has lack of transportation kept you from medical appointments or from getting medications?No 12/23/2024In the past 12 months, has lack of transportation kept you from meetings, work, or from getting things needed for daily living?No12/23/2024 Housing InstabilityAnswerDate RecordedAre you worried or concerned that in the next two months you may not have stable housing that you own, rent or stay in as a part of a household?No12/23/2024hildcareAnswerDate RecordedChildcareUnknown 08/05/2018EmploymentAnswerDate LleyugvvAldfxvuohfPcvdzwi94/11/2019Hunger ScreeningAnswerDate RecordedWithin the past 12 months we worried whether our food would run out before we got money to buy more.Never True12/23/2024Within the past 12 months the food we bought just didn't last and we didn't have money to get more.Never True12/23/2024CommentsNoSex and Gender Information ValueDate RecordedSex Assigned at BvnqfQhjses73/09/2025 6:08 PM EDTLegal Sex Azvaxc4109/28/2014 8:25 PM EDTGender JvodthidJpmmwl95/09/2025 6:07 PM EDTSexual OrientationChoose not to ulkntlco31/09/2025 6:07 PM EDTdocumented as of this encounter Last Filed Vital Signs Vital SignReadingTime TakenCommentsBlood Zumeajba692/7612/27/2024 9:55 AM EST Coejc723812/27/2024 9:55 AM HBTTsumxbujpps89 ??C (98.6 ??F)12/27/2024 9:55 AM EST Respiratory Amof183602/27/2024 9:55 AM ESTOxygen Saturation--Inhaled Oxygen Concentration--Weight--Height--Body Mass Index--documented in this encounter Functional Status * AUDIT-C ScoreAnswerDate of FnlhttmknjQheoio362/17/2025 11:16 AM Larissa Rizo MA * QuestionAnswerDate of AssessmentAuthorQ1: How often do you have a drink containing alcohol?Never12/11/2024 11:16 AM Larissa Bailon MAQ2: How many drinks containing alcohol do you have on a typical day when you are drinking?Patient does not drink12/11/2024 11:16 AM Larissa Bailon MA Q3: How often do you have six or more drinks on one occasion?Never12/11/2024 11:16 AM Larissa Bailon MA * QuestionAnswerDate of AssessmentAuthorFunctional WyzpmeSpnjisfvtgj09/29/2025 6:34 PM Gloria Solares RN documented as of this encounter Discharge Summaries * ZEUS Harrison - 12/27/2024 9:22 AM EST Inpatient Discharge Summary BRIEF OVERVIEW Admitting Provider: ZEUS Murillo Attending Provider: Delicia Stoddard APRN* Admission Date: 12/23/2024 Discharge Date: 12/27/24 Diagnoses: OB History 2 Para 2 Term 2 0 AB 0 Living 2 SAB 0 IAB 0 Ectopic 0 Multiple 0 Live Births 2 Patient Active Problem List Diagnosis Migraine with aura and without status migrainosus, not intractable 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 delivery delivered care following delivery Lactating mother Term Procedure: primary low transverse section Discharge Condition: Stable Activity: activity as tolerated and no driving for today, no lifting or Strenuous exercise for 6 weeks, no sex for 6 weeks and no heavy lifting for 6 weeks Diet: regular diet Wound Care: keep wound clean and dry and as directed [place] Data Information for the patient's : Trish Siddiqui [[id number]] male 3.52 kg Discharge with mother Discharge Diagnosis primary section 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 docusate sodium 100 mg capsule Commonly known as: COLACE Take 1 capsule (100 mg total) by mouth 2 (two) times a day as needed for constipation. doxycycline 100 mg capsule Commonly known as: VIBRAMYCIN Take 1 capsule (100 mg total) by mouth in the morning and 1 capsule (100 mg total) before bedtime. Do all this for 7 days. ibuprofen 800 mg tablet Commonly known as: MOTRIN Take 1 tablet (800 mg total) by mouth every 8 (eight) hours as needed for pain. oxyCODONE 5 mg immediate release tablet Commonly known as: ROXICODONE Take 1 tablet (5 mg total) by mouth every 6 (six) hours as needed for pain for up to 3 days. Max Daily Amount: 20 mg CHANGE how you take these medications Instructions Last Dose Given Next Dose Due magnesium oxide 400 mg tablet Commonly known as: MAGOX What changed: how much to take Take 1 tablet (400 mg total) by mouth nightly. CONTINUE taking these medications Instructions Last Dose Given Next Dose Due ORAL Take by mouth. Where to Get Your Medications These medications were sent to [facility]/pharmacy #[id number] [place] [address] acetaminophen 500 mg tablet docusate sodium 100 mg capsule doxycycline 100 mg capsule ibuprofen 800 mg tablet oxyCODONE 5 mg immediate release tablet Discharge Disposition: Home or Self Care (ROUTINE DISCHARGE) Outpatient Follow-Up: 1 and 6 weeks in office Prescriptions: colace, Motrin, Roxicodone, Tylenol and Doxycycline Comments: Home care, Follow-up care and control were reviewed. Signs and symptoms of mastitis, Pre-E, DVT/PE, PPH, endometritis and PPD/psychosis were reviewed. The patient is to notify her provider if any of these occur. The patient was counseled on secondarysmoke risks and the increased risk of sudden infant syndrome and respiratory problems to her baby with exposure. She was counseled on various alternate recommendations to decrease the exposure to secondary smoke to her children. - ZEUS Harrison 12/27/24 9:23 AM ZEUS Harrison 12/27/24 0924 documented in this encounter Discharge Instructions * Discharge Instructions* Sabrina Lomeli RN - 12/27/2024 10:30 AM EST Discharge Instructions Vaginal Bleeding Vaginal drainage, lochia , will last 2-3 weeks after your baby was born Use the carl bottle filled with warm water each time you use the bathroom, pat dry. Continue this until your drainage stops. Always wipe from front to back after you urinate or have a bowel movement Change your sanitary pad every 2-4 hours Notify your doctor/CNM if you experience any of the following: Clots larger than a plum If you are saturating a carl pad greater than one pad an hour Any foul smelling vaginal drainage Abdominal Cramping Cramping gets stronger with each baby. You may try a heating pad Bathing/Showering Take a shower each day unless you were told not to To help with episiotomy discomfort you may sit in a clean tub of warm water Stitches in your perineum will dissolve over 6 weeks, for comfort you may: Use a sitz bath Carl bottle Dermoplast (use each time after carl care) Tucks (use each time after carl care) Tucks and Dermoplast spray may also help with hemorrhoid discomfort (use each time after carl care) Sexual Whitten No tampons, douching, or sexual intercourse until after you see your doctor You may need to use a water-soluble lubricant such as KY Jelly for dryness Talk to your doctor/CNM regarding control and which method would be best for you Talk to your doctor/CNM regarding the use of a long acting, but reversible, control method It is recommended to space pregnancies apart by at least 18 months, this is for the safety of future outcomes Notify your doctor if you have: Any vaginal burning or itching Any burning or pain when urinating, or inability to urinate A temperature greater than 100.4 degrees Fahrenheit or severe chills Pain in calf or leg Nausea or vomiting, dizziness or fainting If you have not had a bowel movement in 5 days Diet: Drink 8-12 glasses of water each day Make sure you eat a balanced diet, especially high in fiber (whole grains, raw vegetables, etc.) If drink 8 oz. of liquid every time you nurse your baby Continue to take your vitamins as prescribed by your doctor Abdominal Incision / Tubal Ligation Care: Wash your incision with soap and water and be sure to rinse and dry well If you had calos they will be removed by your doctor/CNM If you had sutures they will dissolve on their own For ease of movement hold a pillow against the incision: When you get up from a lying or sitting position When you laugh or cough Notify your doctor/CNM for any of the following: Redness Drainage Open areas around your incision Breast Care: To help with discomfort: Feed your baby frequently to avoid engorgement Apply warm compresses to breast before feeding Apply cold compresses to breast after feeding Wear a supportive nursing bra 24 hours a day Do not put soap on your nipples Allow nipples to air dry after feeding Bottle feeding: To help with discomfort: Use cold compresses Wear a tight fitting bra 24 hours a day Notify your doctor/CNM: For swelling, redness, or tenderness in one area of your breast Blues / Depression: Blues : Usually occurs within 3-5 days after delivery Normally goes away on its own Depression: Can also occur within days of delivery, or within a year Warning Signs: Increased crying for no obvious reason Lack of patience Being irritable Being restless Not being able to sleep Not wanting to eat Anxiety Notify your doctor/CNM: If you experience any of the warning signs If you are having any violent thoughts If you are having thoughts of harming yourself or your baby Sibling / Family Adjustment: Each family member will take different amounts of time to adjust to the new baby Be patient and offer lots of love and comfort Offer some individual attention to other children Exercise / Activity: Get plenty of rest Take catnaps while baby is sleeping during the day No heavy cleaning or other housework for the first couple of weeks Lift nothing heavier than your baby for 2 weeks No driving for one week Do not drive while taking narcotics You may start walking and stretching in 2 weeks No strenuous exercises like jogging, aerobics, etc. until after you have seen your doctor/CNM You may start Kegel exercises now documented in this encounter Medications at Time of Discharge [...] all this for 7 days. 13 capsule ibuprofen (MOTRIN) 800 mg tablet Indications: delivery [...] 12 tablet documented as of this encounter Progress Notes * ZEUS Harrison - 12/27/2024 9:12 AM EST Post operative Day 3 SUBJECTIVE: Delicia Siddiqui is a 29 y.o. who delivered via primary section for failed induction of labor and non-reassuring heart tones. She denies complaints today. She is ambulating without difficulty. She denies dizziness, SOB or palpitations. She is taking ibuprofen and acetaminophen regularly and Roxicodone prn for pain. She reports that her pain is well controlled with medications. She rates her discomfort a 5.5/10 on a 0 to 10 scale. She is passing flatus. She is voiding spontaneously without difficulty. She is tolerating a regular diet and reports good hydration. Sheis breast feeding. She is requesting to go home today. She has good support at home. She plans nothing for contraception at this time. She reports that her mood is stable and history of anxiety. PHYSICAL EXAM: BP 100/51 Pulse 81 Temp 36.7 ??C (98 ??F) (Oral) Resp 16 LMP (LMP Unknown) Yes Lab Results Component Value Date WBC 14.6 (H) 12/25/2024 HGB 11.3 (L) 12/25/2024 HCT 33.5 (L) 12/25/2024 MCV 88 12/25/2024 PLT 187 12/25/2024 General: patient is calm, alert and well appearing Emotional: normal affect Heart: RRR without murmur Lungs: Clear to ausculation bilaterally Breast: nipples everted, intact without cracking or bleeding Abdomen: soft, non-tender, no masses, non-distended, normal BS present x 4 quadrants Incision: well approximated, no erythema or bruising Extremities: no edema, negative Marky's sign, no tenderness in LE Fundus: midline, firm u/2 Lochia: small rubra lochia Assessment: S/P Day 3 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 Discussed with patient: self care, hygiene, incision care, expected bleeding, breast care Discussed recommendations for adequate sleep, nutrition and hydration. Discussed calling for temperature above 100.4, excessive bleeding, mastitis, incision infection, headache, difficulty speaking, visual disturbances, SOB, chest pain, pain on urination, back pain and pain or swelling in leg. Discussed signs of pp blues vs pp depression and when to call. She is aware of need to present to ER for SI/HI. Discussed activity recommendations including no heavy lifting above 10 lbs for 6 weeks Regular diet We discussed narcotic medications and potential risk for addiction. She was encouraged to use sparingly and for shortest duration possible. She was instructed on need to secure medication and properly dispose of medication when therapy completed. Resume home medications No driving x 2 weeks or while taking narcotics Cleanse abdominal wound daily with soap and water and dry well. RX Doxycycline 100mg BID for 7 days RX: Roxicodone 5 mg, # 12 x NR, 1 tablet every 6 hours prn pain RX: Motrin 800 mg, # 30 x 1R, 1 tablet every 8 hours prn pain RX: Colace 100 mg # 30 x NR, 1 tablet BID PRN Return to office in 1 week for incision check and 6 week PP visit - ZEUS Harrison 12/27/24 9:12 AM ZEUS Harrison 12/27/24 0916 AM Lee, ZEUS - 12/26/2024 9:24 AM EDT .Delicia Siddiqui 1995 39w1d Vitals: 12/26/24 0158 BP: 133/84 Pulse: 93 Resp: 18 Temp: 36.7 ??C (98 ??F) Allergies Allergen Reactions Zithromax [Azithromycin] Itching and Rash Lab Results Component Value Date WBC 14.6 (H) 12/25/2024 HGB 11.3 (L) 12/25/2024 HCT 33.5 (L) 12/25/2024 MCV 88 12/25/2024 PLT 187 12/25/2024 Day : 2 SUBJECTIVE: Stable post patient without complaints today. Rates her discomfort a 4 on a 0 to 10 scale. She states she is using oral medication with successful control of her pain. Denies bowel or bladder problems PHYSICAL EXAM: GENERAL APPEARANCE: alert, well appearing, in no apparent distress MENTAL STATUS: appropriate HEART: RRR, no murmur auscultated LUNGS: normal air entry, lungs clear to auscultation BREAST:, filling, and nipples intact ABDOMEN : benign non-tender, without masses or organomegaly palpable INCISION: clean, dry, intact, without erythema, and steri strips intact EXTREMITIES: no redness or tenderness in the calves or thighs, edema 1+ FUNDUS :u/2 LOCHIA : small VOID: without difficulty BOWEL HABITS: passing flatus BOWEL SOUNDS: active BOWEL MOVEMENT:no PAIN CONTROL :fair Assessment: Stable post- Day 2 Plan: Continue post operative orders Plan to discharge home tomorrow. Discussed with patient: self care, hygiene, incision care, expected bleeding, breast care Discussed recommendations for adequate sleep, nutrition and hydration. Discussed calling for temperature above 100.4, excessive bleeding, mastitis, Discussed incision infection, headache, difficulty speaking,visual disturbances, Discussed SOB, chest pain, pain on urination, back pain and pain or swelling in leg. Discussed signs of pp blues vs pp depression. Discussed pp contraception and pelvic rest for 6 weeks. Discussed activity recommendations including no heavy lifting above 10 lbs for 6 weeks. Discussed control options with the patient. Plans to use condoms. RTC: 1 week for incision check with OB provider - ZEUS MANZO 12/26/24 9:25 AM ZEUS Manzo 12/26/24 0926 * ZEUS Cash - 12/25/2024 8:01 AM EDT Note Delicia Siddiqui is a 29 y.o. female post day 1 following 39w1d gestation delivery by primary LTCS. The patient complains of incisional pain not well controlled bytoradol. Pain control is fair. Reports bleedinglight. Voiding by rosenthal which was recently removed, no BM since surgery but she is passing flatus. Breast feeding is going well. Principal Problem: Encounter for elective induction of labor Active Problems: delivery delivered Current Facility-Administered Medications: acetaminophen (TYLENOL EXTRA STRENGTH) tablet 1,000 mg, 1,000 mg, oral, Q8H, ZEUS Burton, 1,000 mg at 12/25/24 0107 bisacodyL (DULCOLAX) suppository 10 mg, 10 mg, rectal, Once PRN, ZEUS Burton carboprost (HEMABATE) injection 250 mcg, 250 mcg, intramuscular, Once PRN, ZEUS Burton carboprost (HEMABATE) injection 250 mcg, 250 mcg, intramuscular, Once PRN, ZEUS Burton diphenhydrAMINE (BENADRYL) injection 25 mg, 25 mg, intravenous, Q6H PRN, David Guadalupe DO diphth,pertus(acell),tetanus (BOOSTRIX) injection 0.5 mL, 0.5 mL, intramuscular, During hospitalization, ZEUS Burton docusate sodium (COLACE) capsule 100 mg, 100 mg, oral, BID, Delicia Stoddard APRN-CNM, 100 mg at1 2336 hydrocortisone (ANUSOL-HC) 2.5 % rectal cream 1 Application, 1 Application, rectal, PRN, Delicia Stoddard APRN-CNBelgica ketorolac (TORADOL) injection 30 mg, 30 mg, intravenous, Q8H, 30 mg at 12/25/24 0528 FOLLOWED BY [START ON 12/26/2024] ibuprofen (MOTRIN) tablet 800 mg, 800 mg, oral, Q8H, Delicia Stoddard APRN-CNM lactated ringers infusion, 999 mL/hr, intravenous, Continuous PRN, Delicia Stoddard APRN-CNBelgica oxytocin (PITOCIN) infusion 30 units/500 mL in lactated ringers (0.06 units/mL premix), 42 marciano-units/min, intravenous, Continuous PRN, Stopped at 12/25/24 0306 AND lactated ringers infusion, 83mL/hr, intravenous, Continuous PRN, Delicia Stoddard APRN-CNM, Stopped at 12/25/24 0307 lactated ringers infusion, 125 mL/hr, intravenous, Continuous, Delicia Stoddard APRN-CNM, Pausedat 12/25/24 0433 lactated ringers infusion, 999 mL/hr, intravenous, Continuous PRN, Delicia Stoddard APRN-CNM lactated ringers infusion, 999 mL/hr, intravenous, Continuous PRN, Delicia Stoddard APRN-CNM measles, mumps and rubella vaccine (M-M-R II) injection 0.5 mL, 0.5 mL, subcutaneous, During hospitalization, Delicia Stoddard APRN-CNBelgica methylergonovine (METHERGINE) injection 200 mcg, 200 mcg, intramuscular, Once PRN, Delicia Stoddard APRN-CNBelgica methylergonovine (METHERGINE) injection 200 mcg, 200 mcg, intramuscular, Once PRN, Delicia Stoddard APRN-JO-ANN miSOPROStoL (CYTOTEC) tablet 800 mcg, 800 mcg, sublingual, Once PRN, Delicia Stoddard APRN-CNM miSOPROStoL (CYTOTEC) tablet 800 mcg, 800 mcg, sublingual, Once PRN, Delicia Stoddard APRN-CNM modified lanolin (LANSINOH) 100 % cream cream 1 Application, 1 Application, topical, PRN, Ev Stoddard APRN-CNM, 1 Application at 12/24/24 2337 nalbuphine (NUBAIN) injection 2 mg, 2 mg, intravenous, Q3H PRN, David Guadalupe, DO naloxone (NARCAN) injection 0.1 mg, 0.1 mg, intravenous, PRN, David Christine Guadalupe, DO ondansetron (PF) (ZOFRAN) injection 4 mg, 4 mg, intravenous, Q4H PRN, Delicia Stoddard APRN-CNM,4 mg at 12/25/24 0039 oxyCODONE (ROXICODONE) immediate release tablet 10 mg, 10 mg, oral, Q4H PRN, Delicia Stoddard APRN-CNM, 10 mg at 12/25/24 0751 oxyCODONE (ROXICODONE) immediate release tablet 5 mg, 5 mg, oral, Q4H PRN, Delicia Stoddard APRN-CNM, 5 mg at 12/25/24 0040 oxytocin (PITOCIN) bolus from bag solution 10 Units, 10 Units, intravenous, Once PRN, Delicia Stoddard APRN-CNM oxytocin (PITOCIN) injection 10 Units, 10 Units, intramuscular, Once PRN, Delicia Stoddard APRN-CNM oxytocin (PITOCIN) injection 10 Units, 10 Units, intramuscular, Once PRN, Delicia Stoddard APRN-CNM PNV,calcium 59-wiss-xsqzy acid ( PLUS) 27 mg iron- 1 mg tablet 1 tablet, 1 tablet, oral, Daily, Delicia Stoddard APRN-JO-ANN polyethylene glycol (GLYCOLAX) packet 17 g, 17 g, oral, Daily, Delicia Stoddard APRN-CNM simethicone (MYLICON) chewable tablet 80 mg, 80 mg, oral, ACHSP, Delicia A Richi, GREASE REMOVER-CNM sodium chloride 0.9 % flush 3 mL, 3 mL, intravenous, PRN, Joanie Sommer, GREASE REMOVER-CNBelgica sodium chloride 0.9 % flush 3 mL, 3 mL, intravenous, Q12H NATALIE, Joanie Sommer APRN-JO-ANN tranexamic acid (CYKLOKAPRON) injection 1,000 mg, 1,000 mg, intravenous, Q30 Min PRN, Joanie Sommer APRN-CNBelgica tranexamic acid (CYKLOKAPRON) injection 1,000 mg, 1,000 mg, intravenous, Q30 Min PRN, Delicia Stoddard APRN-CNBelgica tranexamic acid (CYKLOKAPRON) injection 1,000 mg, 1,000 mg, intravenous, Q30 Min PRN, Delicia Stoddard APRN-JO-ANN varicella virus vaccine live (VARIVAX) injection 0.5 mL, 0.5 mL, subcutaneous, During hospitalization, ZEUS Burton Recent Results (from the past 24 hours) CBC without diff Collection Time: 12/25/24 5:25 AM Result Value Ref Range WBC 14.6 (H) 4 - 11 x10E9/L RBC Count 3.81 3.8 - 5.2 X10E12/L Hemoglobin 11.3 (L) 11.7 - 15.5 g/dL Hematocrit 33.5 (L) 35 - 47 % MCV 88 80 - 100 fL MCH 29.8 27 - 34 pg MCHC 33.9 32 - 36 g/dL RDW 15.0 11.5 - 15 % Platelet Count 187 150 - 450 X10E9/L MPV 9.9 7 - 12 fL Allergies Allergen Reactions Zithromax [Azithromycin] Itching and Rash Physical Exam: BP 113/59 Pulse 64 Temp 36.7 ??C (98 ??F) (Oral) Resp 16 LMP (LMP Unknown) Yes General Appearance: Alert, cooperative, no distress, appears stated age Head: Normocephalic, without obvious abnormality, atraumatic, thyroid WNL. Back: Symmetric, no curvature, ROM normal, no CVA tenderness. Lungs: Clear to auscultation bilaterally, respirations unlabored. Chest Wall: No tenderness or deformity. Heart: Regular rate and rhythm, S1 and S2 normal, no murmur, rub or gallop. Breast Exam: No tenderness, masses, or nipple abnormality. . Nipples intact. Abdomen: Soft, non-tender, bowel sounds active all four quadrants, no masses, no organomegaly. Fundus firm, midline, U-2 incision is clean, dry, and intact Genitalia: Normal female without lesion, discharge or tenderness. Lochia rubra light. Laceration n/a. control plan: no discussed Rectal: Rectum intact. Extremities: Extremities normal, atraumatic, no cyanosis, no edema Pulses: 2+ and symmetric all extremities Skin: Skin color, texture, turgor normal, no rashes or lesions Phychiatric: Appropriate affect. Denies signs of depression. Neurologic: Normal strength, sensation and reflexes Throughout OARS report reviewed at DC. Assessment S/P PLTCS Positive for Ureaplasm urealyticum HX anemia VSS Day :1 routine care DC IV fluids Ambulation, incentive spirometry and pain management reviewed with patient. - ZEUS CASH 12/25/24 8:02 AM ZEUS Cash 12/25/24 0808 * ZEUS Burton - 12/24/2024 10:13 PM EDT physiotherapy assistant Section for non-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 Surgeon: Dr. Iemlda Vega was present for all valadez parts of the procedure, allowing for adequate visualization of the surgical field, and improved safety and efficiency during the case. I assisted with delivery of the infant, allowing for adequate exposure, fundal pressure and assessment while the primary surgeon c ontinued the surgical procedure. I also assisted with wound closure, independently performing skin closure with a subcuticular suture. - ZEUS Burton 12/24/24 10:15 PM ZEUS Burton 12/24/24 2215 * ZEUS Burton - 12/24/2024 8:04 PM EDT Patient and FOB discussed option of AROM and internal monitoring versus section. Patient would like to proceed with a section. Dr. Segura notified and on his way to the unit. OR teamand rest of staff notified. - ZEUS Burton 12/24/24 8:12 PM ZEUS Burton 12/24/242011 * ZEUS Burton - 12/24/2024 7:35 PM EDT CNM to room to remove Cervidil due to minimal variability on tracing. Subjective: Patient is currently rating pain 5/10. She is not requesting pain medication or epidural infusion at this time. Reports positive movement. Support person present at bedside. Objective: Well appearing, well nourished stable female in no acute distress. A/O x4, VSS and she is afebrile. Lungs: Regular respirations with equal chest expansion. Extremities: Moving all extremities appropriately Perineum: No lesions present. IV patent and infusing without s/sx of infection or infiltration. Patient nicho irregular every 4-7 minutes. Palpating mild. Abdomen is soft between contractions. FHT: 125 bpm, minimal variability, absent accels, absent decels Cat 2 FHR tracing is apparent. PELVIC EXAM: Presentation: Presentation: Vertex Cervix: Dilation: Dilation: 3 Effacement: Effacement (%): 60 Station: Station: -2 Position: Vitals: 12/24/24 1906 BP: 118/56 Pulse: 83 Resp: 16 Temp: 36.7 ??C (98.1 ??F) Assessment IUP @ 39w1d EIOL S/P Cervidil x 2 GBS negative Rh positive Category 2 EFM, resolved with removal of Cervidil Plan: Discussed pt with Dr. Segura Discussed options of AROM and internal monitors vs section for persistent Category 2 stripremote from delivery. Antibiotics for ureaplasma urealyticum Clear liquid diet Plan of care and monitoring strip discussed with patient and support people at bedside. Plan of care and monitoring strip discussed with bedside nurse and Dr. Segura All parties agree to continue plan of care as outlined. - ZEUS Burton 12/24/24 7:52 PM ZEUS Burton 12/24/242003 * ZEUS Burton - 12/24/2024 7:15 AM EDT Subjective: Patient is currently rating pain 8/10. She is considering pain medication at this time. Reports positive movement. Support person present at bedside. Objective: Well appearing, well nourished stable female in no acute distress. A/O x4, VSS and she is afebrile. Lungs: Regular respirations with equal chest expansion. Extremities: Moving all extremities appropriately Perineum: No lesions present. IV patent and infusing without s/sx of infection or infiltration. Patient nicho 3-4 minutes. Palpating soft. Abdomen is soft between contractions. FHT: 145 bpm, moderate variability, positive accels, absent decels Cat 1 FHR tracing is apparent. FHT change with vaginal exam, new baseline 160 bpm. PELVIC EXAM: Presentation: Presentation: Vertex Cervix: Dilation: Dilation: 1 Effacement: Effacement (%): 70 Station: Station: -3 Position: Vitals: 12/24/24 0402 BP: 119/62 Pulse: 99 Resp: 16 Temp: 37.2 ??C (98.9 ??F) Assessment IUP @ 39w1d EIOL S/P Cervidil GBS negative Rh positive Category 1-2 EFM, FHT change with vaginal exam Plan: Discussed pt with Dr. Segura Plan for a second Cervidil for cervical ripening Patient may eat and shower prior to preceding with EIOL Pain management per patient preference Clear liquid diet Plan of care and monitoring strip discussed with patient and support people at bedside. Plan of care and monitoring strip discussed with bedside nurse and Dr. Segura All parties agree to continue plan of care as outlined. - ZEUS Burton 12/24/24 7:41 AM ZEUS Burton 12/24/24 08 * ZEUS Manzo - 12/23/2024 7:07 PM EDT Subjective: Pt reports feeling crampy. Patient declines the need for IV pain medication or epiduralat this time. Feeling movement. Supportive family remains at bedside. Pt reports reaction after taking oral Zithromax in July. Developed itchy rash of neck, chest and abdomen. Objective: Vital signs: Blood pressure 125/81, pulse 82, temperature 36.6 ??C (97.8 ??F), temperature source Oral, resp. rate 16. FHT: Baseline Rate A: 130 bpm with moderate variability Accelerations present. No decelerations present. Uterine irritability noted PELVIC EXAM: Presentation: Presentation: Vertex Cervix: Dilation: Dilation: 1 Effacement: Effacement (%): 70 Station: Station: -3 Position: Cervidil inserted into posterior fornix without difficulty Bedside US, vertex presentation confirmed Assessment: IUP at 39w0d Category 1 tracing Plan : Will change Zithromax to Clindamycin order Pain management per patient choice. Encourage position changes. Reassess PRN ZEUS MANZO APRN-CNM 12/23/24 193 ZEUS Manzo 12/23/241944 documented in this encounter H&P Notes * ZEUS Manzo - 12/23/2024 6:34 PM EDT Images from the original note were not included. LABOR AND DELIVERY HISTORY AND PHYSICAL/TRIAGE: CHIEF COMPLAINT: Chief Complaint Patient presents with Scheduled Induction Delicia Siddiqui is a 29 y.o. female with Estimated Date of Delivery: 12/30/24 at 39w0d weeks gestation who is being admitted forElection Induction (ACOG GUIDELINES RECOMMENDS 39COMPLETED WEEKS GESTATION) . Her current obstetrical history is significant for anemia, ureaplasma urealyticum, recurrent syncope, migraines with visual disturbances, and back/pelvic pain. Patient reports no complaints currently apart from continuous pelvic pain. Movement: good Denies contractions/bleeding/fluid loss REVIEW OF SYSTEMS: Constitutional: Negative. HENT: Negative. Eyes: Negative for visual disturbance. Respiratory: Negative. Cardiovascular: Negative. Gastrointestinal: Negative for nausea, vomiting, abdominal pain and diarrhea. Endocrine: Subclinical hypothyroidism Genitourinary: Negative for dysuria, urgency, vaginal bleeding, vaginal discharge and difficulty urinating. Musculoskeletal: Back and pelvic pain Skin: Negative. Allergic/Immunologic: Negative. Neurological: Negative for seizures and headaches. Reports recurrent syncope, migraines and visual disturbances Hematological: Anemia Psychiatric/Behavioral: Negative. ALLERGIES: No Known Allergies PAST MEDICAL HISTORY: Past Medical History: Diagnosis Date Adult ADHD Anxiety Eczema PAST SURGICAL HISTORY: Past Surgical History: Procedure Laterality Date APPENDECTOMY 2023 Travel History: Travel Screening Question Response Have you been in contact with someone who was sick? No / Unsure Do you have any of the following new or worsening symptoms? None of these Have you traveled internationally or domestically in the last month? No Travel History Travel since 11/23/24 No documented travel since 11/23/24 FAMILY HISTORY: Family History Problem Relation Age of Onset Lupus Mother Migraines Mother Lupus Sister Autism Neg Hx Developmental delay Neg Hx Clotting disorder Neg Hx Bleeding Disorder Neg Hx Congenital heart disease Neg Hx Sudden Neg Hx SOCIAL HISTORY: Social History Socioeconomic History Marital status: Single Tobacco Use Smoking status: Never Passive exposure: Never Smokeless tobacco: Never Vaping Use Vaping status: Former Quit date: 12/27/2023 Substances: Nicotine Substance and Sexual Activity Alcohol use: Not Currently Drug use: Not Currently Types: Marijuana Sexual activity: Yes Partners: Male control/protection: None Other Topics Concern Caffeine Use Yes Social Drivers of Health Financial Resource Strain: Patient Declined (10/15/2024) Overall Financial Resource Strain (CARDIA) Difficulty of Paying Living Expenses: Patient declined Food Insecurity: No Food Insecurity (12/23/2024) Hunger Screening Food Insecurity - Worry: Never True Food Insecurity - Inability: Never True Transportation Needs: No Transportation Needs (12/23/2024) PRAPARE - Transportation Lack of Transportation (Medical): No Lack of Transportation (Non-Medical): No Housing Instability: Low Risk (12/23/2024) Housing Instability Housing Instability: No HOME MEDICATIONS: Medications Prior to Admission Medication Sig Dispense Refill Last Dose/Taking magnesium oxide (MAGOX) 400 mg tablet Take 1 tablet (400 mg total) by mouth nightly. (Patient taking differently: Take 0.5 tablets (200 mg total) by mouth nightly.) 30 tablet 4 Past Week PNV no.95/ferrous fum/folic ac ( ORAL) Take by mouth. 12/22/2024 Morning Vital signs in last 24 hours: Vitals: 12/23/24 1800 BP: 125/81 Pulse: 82 Resp: 16 Temp: 36.6 ??C (97.8 ??F) PHYSICAL EXAM: General: alert, appears stated age, and cooperative Skin: normal HEENT: PERRLA Lungs: clear to auscultation bilaterally Heart: regular rate and rhythm, S1, S2 normal, no murmur, click, rub or gallop Breasts: exam deferred Abdomen: soft, non-tender; bowel sounds normal; no masses, no organomegaly Pelvis: Vulva and vagina appear normal. Bimanual exam reveals normal uterus and adnexa. FHT: 130 bpm with moderate variability Presentation: vertex Cervix: Medium consistency Dilation: Dilation: 1 Effacement: Effacement (%): 70 Station: Station: -3 Position: posterior Preferences: Feeding: breast Pain Management: Nubain or Nitrous Oxide Care Provider: Surya Romero Lab Review ABO/Rh: AB positive Group B Strep: Negative Hepatitis B Surface Antigen: Lab Results Component Value Date HEPBSAG Non-Reactive 05/11/2024 Rubella: Lab Results Component Value Date RUBELLAIMMU 1.0 05/11/2024 HIV and RPR non reactive One hour GTT: Normal Assessment: IUP at 39.0 wks. Negative for Group Beta Streptococcus Category tracing 1 Anemia Ureaplasma urealyticum Plan: Discussion with patient and family regarding: plan of care Plan is for: Cervidil for cervical ripening Zithromax 500 mg IV QD till delivery, then Doxycycline 100 mg PO BID. Encouraged position changes Pain management per patient choice Reassess PRN Patient voices understanding of all instructions given and agreement with the plan of care. - ZEUS MANZO 12/23/24 6:36 PM ZEUS Manzo 12/23/24 1849 documented in this encounter Miscellaneous Notes * Plan of Care - Sabrina Lomeli RN - 12/27/2024 1:37 PM EST Problem: Pain Goal: Patient goal is pain score less than 4, able to rest, and participant in treatment plan as appropriate Description: INTERVENTIONS: 1. Encourage patient or legal human resources hr representative to report early pain and ask for pain medicine when needed 2. Assess pain using appropriate pain scale and include the scale used when documenting 3. Administer analgesics based on type and severity of pain and evaluate response within appropriate time frame 4. Implement non-pharmacological measures as appropriate and evaluate response 5. Consider cultural and social influences on pain and pain management 6. Notify LIP if interventions ineffective or patient reports new pain 7. Monitor vital signs including pulse ox, end-tidal CO2 based on pain intervention 8. Reassess pain per policy 9. Teach patient or legal human resources hr representative interventions for comforting Outcome: Completed Note: Evaluation of progress towards goal: Pt able to report pain according to 0/10 pain scale. Medicating patient for pain per orders. Pt encouraged to report early pain, analgesics administered as needed, hourly rounding completed and pain assessed. Problem: Safety Goal: Patient will be injury free during hospitalization Description: INTERVENTIONS: 1. Assess patient's risk for falls and implement fall prevention plan of care per policy 2. Provide and maintain a safe environment 3. Proper use of double Identifiers 4. Medication administration using the 5 rights 5. Hand hygiene 6. Specimens are labeled at the bedside 7. Instruct patient/ patient human resources hr representative about use of safety devices 8. Include patient/ patient human resources hr representative in decisions related to safety Outcome: Completed Note: Evaluation of progress towards goal: Safety measures initiated/maintained. Pt remains safe from harm/injury/falls. Pt's risk for falls assessed and fall prevention implemented as needed, safe environment provided and maintained, hand hygiene completed. Call light within reach/ hourly roundingto meet needs/ safety equipment used as needed/up with assistance when needed. Problem: Infection Goal: Absence of infection during hospitalization Description: INTERVENTIONS 1. Assess and monitor for signs and symptoms of infection. 2. Monitor lab/diagnostic results. 3. Monitor all insertion sites i.e., indwelling lines, tubes and drains. 4. Monitor endotracheal (as able) and nasal secretions for changes in amount and color. 5. Administer medications as ordered. 6. Instruct and encourage patient and family to use good hand hygiene technique. 7. Identify and instruct patient/patient human resources hr representative in use of appropriate isolation precautionsfor identified infection/symptoms. 8. Provide and discuss with patient/patient human resources hr representative on educational MDRO sheet. 9. Encourage and monitor nutritional status daily and consult yarn packer if indicated. 10. Implement neutropenic guidelines as needed. Outcome: Completed Note: Evaluation of progress towards goal: Patient afebrile at this time, patient VS WNL. Pt assessed and monitored for signs and symptoms of infection, lab and diagnostic results monitored as needed, administer medications as needed. Hand hygiene completed. Continue to monitor. Problem: Knowledge Deficit Goal: Patient/patient human resources hr representative demonstrates understanding of disease process, treatment plan,medications, and discharge instructions Description: INTERVENTIONS 1. Complete learning assessment and assess knowledge base 2. Provide teaching at level of understanding 3. Provide teaching via preferred learning method(s) Outcome: Completed Note: Evaluation of progress towards goal: Pt learning and knowledge base assessed, teaching provided at an understandable level as needed, teaching provided via preferred learning method. POC discussed with patient, questions answered PRN. Problem: Discharge Planning Goal: Discharge to post-acute care, other facility, or home with appropriate resources Description: Patient's goal is: INTERVENTIONS 1. Conduct assessment to determine patient/family and health care team treatment goals, and need for post-acute services based on payer coverage, community resources, and patient preferences, and barriers to discharge 2. Coordinate with Social work, Care Navigation, and Utilization Review to arrange appropriate level of services according to patient's needs based on patient preference and payer coverage in collaboration with the physician and health care team 3. Address psychosocial, clinical, and financial barriers to discharge as identified in assessment in conjunction with the patient/family and health care team 4. Consult appropriate ancillary services (i.e.. PT/OT/ST, etc) as needed 5. Communicate with and update the patient/family, physician, and health care team regarding progress on the discharge plan 6. Identify discharge learning needs (meds, wound care, etc). 7. Arrange for needed discharge transportation as appropriate Outcome: Completed Note: Evaluation of progress towards goal: Pt discharge initiated with attending provider, Pt/Family communicated with and updated regarding process on discharge as needed. Reviewed discharge plan and questions answered Problem: Potential for Compromised Skin Integrity Goal: Skin integrity is maintained or improved Description: Patient's goal is: INTERVENTIONS 1. Perform initial skin assessment on admission and as needed 2. Turn patient every 2 hours and PRN 3. Relieve pressure to bony prominences 4. Avoid shearing 5. Keep skin clean and dry 6. Alternate a full bath with partial baths for elderly 7. Apply lotion/moisturizer on skin 8. Monitor patient's hygiene practices 9. Float heels 10. Collaborate with interdisciplinary team and initiate plans and interventions as needed Outcome: Completed Note: Evaluation of progress towards goal: skin integrity was maintained during stay Goal: Patient's nutritional intake is adequate Description: Patient's goal is: INTERVENTIONS 1. Assess and monitor food intake and supplements, patient food preferences, nausea, vomiting, labs, oral cavity (gums, teeth, tongue, mucosa), proper denture fit, and cultural beliefs 2. Monitor for signs of hypoglycemia and hyperglycemia 3. Collaborate with interdisciplinary team and initiate plan and interventions as ordered 4. Monitor patient's weight 5. Assist patient with meals/food selection 6. Assist patient with eating 7. Allow adequate time for meals 8. Provide pleasant environment during mealtime 9. Increase social contact during mealtimes 10. Plan activities to conserve energy 11. Encourage/perform oral hygiene as appropriate 12. Encourage patient to take dietary supplement as ordered 13. Collaborate with clinical yarn packer 14. Include patient/ patient's human resources hr representative in decisions related to nutrition Outcome: Completed Note: Evaluation of progress towards goal: pt encouraged to order from cafeteria when desired Problem: Care Goal: Patient vital signs are stable Description: INTERVENTIONS 1. Assess vital signs - 2. Turn, cough, & deep breathe Outcome: Completed Note: Evaluation of progress towards goal: VS WNL Goal: Fundus firm at midline Description: INTERVENTIONS 1. Assess fundus Outcome: Completed Note: Evaluation of progress towards goal: FUNDUS REMAINED FIRM AND MIDLINE Additional Comments: * Plan of Care - Ambar Armstrong RN - 12/26/2024 11:40 PM EDT Problem: Pain Goal: Patient goal is pain score less than 4, able to rest, and participant in treatment plan as appropriate Description: INTERVENTIONS: 1. Encourage patient or legal human resources hr representative to report early pain and ask for pain medicine when needed 2. Assess pain using appropriate pain scale and include the scale used when documenting 3. Administer analgesics based on type and severity of pain and evaluate response within appropriate time frame 4. Implement non-pharmacological measures as appropriate and evaluate response 5. Consider cultural and social influences on pain and pain management 6. Notify LIP if interventions ineffective or patient reports new pain 7. Monitor vital signs including pulse ox, end-tidal CO2 based on pain intervention 8. Reassess pain per policy 9. Teach patient or legal human resources hr representative interventions for comforting Outcome: Progressing Note: Evaluation of progress towards goal: Pt able to report pain according to 0/10 pain scale. Medicating patient for pain per orders. Pt encouraged to report early pain, analgesics administered as needed, hourly rounding completed and pain assessed. Problem: Safety Goal: Patient will be injury free during hospitalization Description: INTERVENTIONS: 1. Assess patient's risk for falls and implement fall prevention plan of care per policy 2. Provide and maintain a safe environment 3. Proper use of double Identifiers 4. Medication administration using the 5 rights 5. Hand hygiene 6. Specimens are labeled at the bedside 7. Instruct patient/ patient human resources hr representative about use of safety devices 8. Include patient/ patient human resources hr representative in decisions related to safety Outcome: Progressing Note: Evaluation of progress towards goal: Safety measures initiated/maintained. Pt remains safe from harm/injury/falls. Pt's risk for falls assessed and fall prevention implemented as needed, safe environment provided and maintained, hand hygiene completed. Call light within reach/ hourly roundingto meet needs/ safety equipment used as needed/up with assistance when needed. Problem: Infection Goal: Absence of infection during hospitalization Description: INTERVENTIONS 1. Assess and monitor for signs and symptoms of infection. 2. Monitor lab/diagnostic results. 3. Monitor all insertion sites i.e., indwelling lines, tubes and drains. 4. Monitor endotracheal (as able) and nasal secretions for changes in amount and color. 5. Administer medications as ordered. 6. Instruct and encourage patient and family to use good hand hygiene technique. 7. Identify and instruct patient/patient human resources hr representative in use of appropriate isolation precautionsfor identified infection/symptoms. 8. Provide and discuss with patient/patient human resources hr representative on educational MDRO sheet. 9. Encourage and monitor nutritional status daily and consult yarn packer if indicated. 10. Implement neutropenic guidelines as needed. Outcome: Progressing Note: Evaluation of progress towards goal: Patient afebrile at this time, patient VS WNL. Pt assessed and monitored for signs and symptoms of infection, lab and diagnostic results monitored as needed, administer medications as needed. Hand hygiene completed. Continue to monitor. Problem: Knowledge Deficit Goal: Patient/patient human resources hr representative demonstrates understanding of disease process, treatment plan,medications, and discharge instructions Description: INTERVENTIONS 1. Complete learning assessment and assess knowledge base 2. Provide teaching at level of understanding 3. Provide teaching via preferred learning method(s) Outcome: Progressing Note: Evaluation of progress towards goal: Pt learning and knowledge base assessed, teaching provided at an understandable level as needed, teaching provided via preferred learning method. POC discussed with patient, questions answered PRN. Problem: Discharge Planning Goal: Discharge to post-acute care, other facility, or home with appropriate resources Description: Patient's goal is: INTERVENTIONS 1. Conduct assessment to determine patient/family and health care team treatment goals, and need for post-acute services based on payer coverage, community resources, and patient preferences, and barriers to discharge 2. Coordinate with Social work, Care Navigation, and Utilization Review to arrange appropriate level of services according to patient's needs based on patient preference and payer coverage in collaboration with the physician and health care team 3. Address psychosocial, clinical, and financial barriers to discharge as identified in assessment in conjunction with the patient/family and health care team 4. Consult appropriate ancillary services (i.e.. PT/OT/ST, etc) as needed 5. Communicate with and update the patient/family, physician, and health care team regarding progress on the discharge plan 6. Identify discharge learning needs (meds, wound care, etc). 7. Arrange for needed discharge transportation as appropriate Outcome: Progressing Note: Evaluation of progress towards goal: Pt discharge initiated with attending provider, Pt/Family communicated with and updated regarding process on discharge as needed. Reviewed discharge plan and questions answered Problem: Potential for Compromised Skin Integrity Goal: Skin integrity is maintained or improved Description: Patient's goal is: INTERVENTIONS 1. Perform initial skin assessment on admission and as needed 2. Turn patient every 2 hours and PRN 3. Relieve pressure to bony prominences 4. Avoid shearing 5. Keep skin clean and dry 6. Alternate a full bath with partial baths for elderly 7. Apply lotion/moisturizer on skin 8. Monitor patient's hygiene practices 9. Float heels 10. Collaborate with interdisciplinary team and initiate plans and interventions as needed Outcome: Progressing Note: Evaluation of progress towards goal: Pt ambulates around room ab brianna, no skin issues. Goal: Patient's nutritional intake is adequate Description: Patient's goal is: INTERVENTIONS 1. Assess and monitor food intake and supplements, patient food preferences, nausea, vomiting, labs, oral cavity (gums, teeth, tongue, mucosa), proper denture fit, and cultural beliefs 2. Monitor for signs of hypoglycemia and hyperglycemia 3. Collaborate with interdisciplinary team and initiate plan and interventions as ordered 4. Monitor patient's weight 5. Assist patient with meals/food selection 6. Assist patient with eating 7. Allow adequate time for meals 8. Provide pleasant environment during mealtime 9. Increase social contact during mealtimes 10. Plan activities to conserve energy 11. Encourage/perform oral hygiene as appropriate 12. Encourage patient to take dietary supplement as ordered 13. Collaborate with clinical yarn packer 14. Include patient/ patient's human resources hr representative in decisions related to nutrition Outcome: Progressing Note: Evaluation of progress towards goal: Pt eats all meals, adequate intake. Problem: Care Goal: Patient vital signs are stable Description: INTERVENTIONS 1. Assess vital signs - 2. Turn, cough, & deep breathe Outcome: Progressing Note: Evaluation of progress towards goal: Vital signs obtained every 15 minutes x 2 hours, every 4hours x 24 hours, then every 6 hours. VS WDL. Encouraged patient to use ISP and to turn, cough and deep breathe. Goal: Fundus firm at midline Description: INTERVENTIONS 1. Assess fundus Outcome: Progressing Note: Evaluation of progress towards goal: Fundus assessed, firm and midline. No interventions needed, will continue to monitor. Additional Comments: * Plan of Care - Sabrina Lomeli RN - 12/26/2024 1:19 PM EDT Problem: Pain Goal: Patient goal is pain score less than 4, able to rest, and participant in treatment plan as appropriate Description: INTERVENTIONS: 1. Encourage patient or legal human resources hr representative to report early pain and ask for pain medicine when needed 2. Assess pain using appropriate pain scale and include the scale used when documenting 3. Administer analgesics based on type and severity of pain and evaluate response within appropriate time frame 4. Implement non-pharmacological measures as appropriate and evaluate response 5. Consider cultural and social influences on pain and pain management 6. Notify LIP if interventions ineffective or patient reports new pain 7. Monitor vital signs including pulse ox, end-tidal CO2 based on pain intervention 8. Reassess pain per policy 9. Teach patient or legal human resources hr representative interventions for comforting Outcome: Progressing Note: Evaluation of progress towards goal: Pt able to report pain according to 0/10 pain scale. Medicating patient for pain per orders. Pt encouraged to report early pain, analgesics administered as needed, hourly rounding completed and pain assessed. Problem: Safety Goal: Patient will be injury free during hospitalization Description: INTERVENTIONS: 1. Assess patient's risk for falls and implement fall prevention plan of care per policy 2. Provide and maintain a safe environment 3. Proper use of double Identifiers 4. Medication administration using the 5 rights 5. Hand hygiene 6. Specimens are labeled at the bedside 7. Instruct patient/ patient human resources hr representative about use of safety devices 8. Include patient/ patient human resources hr representative in decisions related to safety Outcome: Progressing Note: Evaluation of progress towards goal: Safety measures initiated/maintained. Pt remains safe from harm/injury/falls. Pt's risk for falls assessed and fall prevention implemented as needed, safe environment provided and maintained, hand hygiene completed. Call light within reach/ hourly roundingto meet needs/ safety equipment used as needed/up with assistance when needed. Problem: Infection Goal: Absence of infection during hospitalization Description: INTERVENTIONS 1. Assess and monitor for signs and symptoms of infection. 2. Monitor lab/diagnostic results. 3. Monitor all insertion sites i.e., indwelling lines, tubes and drains. 4. Monitor endotracheal (as able) and nasal secretions for changes in amount and color. 5. Administer medications as ordered. 6. Instruct and encourage patient and family to use good hand hygiene technique. 7. Identify and instruct patient/patient human resources hr representative in use of appropriate isolation precautionsfor identified infection/symptoms. 8. Provide and discuss with patient/patient human resources hr representative on educational MDRO sheet. 9. Encourage and monitor nutritional status daily and consult yarn packer if indicated. 10. Implement neutropenic guidelines as needed. Outcome: Progressing Note: Evaluation of progress towards goal: Patient afebrile at this time, patient VS WNL. Pt assessed and monitored for signs and symptoms of infection, lab and diagnostic results monitored as needed, administer medications as needed. Hand hygiene completed. Continue to monitor. Problem: Knowledge Deficit Goal: Patient/patient human resources hr representative demonstrates understanding of disease process, treatment plan,medications, and discharge instructions Description: INTERVENTIONS 1. Complete learning assessment and assess knowledge base 2. Provide teaching at level of understanding 3. Provide teaching via preferred learning method(s) Outcome: Progressing Note: Evaluation of progress towards goal: Pt learning and knowledge base assessed, teaching provided at an understandable level as needed, teaching provided via preferred learning method. POC discussed with patient, questions answered PRN. Problem: Discharge Planning Goal: Discharge to post-acute care, other facility, or home with appropriate resources Description: Patient's goal is: INTERVENTIONS 1. Conduct assessment to determine patient/family and health care team treatment goals, and need for post-acute services based on payer coverage, community resources, and patient preferences, and barriers to discharge 2. Coordinate with Social work, Care Navigation, and Utilization Review to arrange appropriate level of services according to patient's needs based on patient preference and payer coverage in collaboration with the physician and health care team 3. Address psychosocial, clinical, and financial barriers to discharge as identified in assessment in conjunction with the patient/family and health care team 4. Consult appropriate ancillary services (i.e.. PT/OT/ST, etc) as needed 5. Communicate with and update the patient/family, physician, and health care team regarding progress on the discharge plan 6. Identify discharge learning needs (meds, wound care, etc). 7. Arrange for needed discharge transportation as appropriate Outcome: Progressing Note: Evaluation of progress towards goal: Pt discharge initiated with attending provider, Pt/Family communicated with and updated regarding process on discharge as needed. Reviewed discharge plan and questions answered Problem: Potential for Compromised Skin Integrity Goal: Skin integrity is maintained or improved Description: Patient's goal is: INTERVENTIONS 1. Perform initial skin assessment on admission and as needed 2. Turn patient every 2 hours and PRN 3. Relieve pressure to bony prominences 4. Avoid shearing 5. Keep skin clean and dry 6. Alternate a full bath with partial baths for elderly 7. Apply lotion/moisturizer on skin 8. Monitor patient's hygiene practices 9. Float heels 10. Collaborate with interdisciplinary team and initiate plans and interventions as needed Outcome: Progressing Note: Evaluation of progress towards goal: SKIN INTEGRITY INTACT Goal: Patient's nutritional intake is adequate Description: Patient's goal is: INTERVENTIONS 1. Assess and monitor food intake and supplements, patient food preferences, nausea, vomiting, labs, oral cavity (gums, teeth, tongue, mucosa), proper denture fit, and cultural beliefs 2. Monitor for signs of hypoglycemia and hyperglycemia 3. Collaborate with interdisciplinary team and initiate plan and interventions as ordered 4. Monitor patient's weight 5. Assist patient with meals/food selection 6. Assist patient with eating 7. Allow adequate time for meals 8. Provide pleasant environment during mealtime 9. Increase social contact during mealtimes 10. Plan activities to conserve energy 11. Encourage/perform oral hygiene as appropriate 12. Encourage patient to take dietary supplement as ordered 13. Collaborate with clinical yarn packer 14. Include patient/ patient's human resources hr representative in decisions related to nutrition Outcome: Progressing Note: Evaluation of progress towards goal: PT ENCOURAGED TO ORDER BREAKFAST, LUNCH, DINNER WHEN DISIRES Problem: Care Goal: Patient vital signs are stable Description: INTERVENTIONS 1. Assess vital signs - 2. Turn, cough, & deep breathe Outcome: Progressing Note: Evaluation of progress towards goal: PT VS WNL Goal: Fundus firm at midline Description: INTERVENTIONS 1. Assess fundus Outcome: Progressing Note: Evaluation of progress towards goal: Fundus assessed, firm and midline. No interventions needed, will continue to monitor. Additional Comments: * Plan of Care - Ambar Armstrong RN - 12/26/2024 1:17 AM EDT Problem: Pain Goal: Patient goal is pain score less than 4, able to rest, and participant in treatment plan as appropriate Description: INTERVENTIONS: 1. Encourage patient or legal human resources hr representative to report early pain and ask for pain medicine when needed 2. Assess pain using appropriate pain scale and include the scale used when documenting 3. Administer analgesics based on type and severity of pain and evaluate response within appropriate time frame 4. Implement non-pharmacological measures as appropriate and evaluate response 5. Consider cultural and social influences on pain and pain management 6. Notify LIP if interventions ineffective or patient reports new pain 7. Monitor vital signs including pulse ox, end-tidal CO2 based on pain intervention 8. Reassess pain per policy 9. Teach patient or legal human resources hr representative interventions for comforting Outcome: Progressing Note: Evaluation of progress towards goal: Pt able to report pain according to 0/10 pain scale. Medicating patient for pain per orders. Pt encouraged to report early pain, analgesics administered as needed, hourly rounding completed and pain assessed. Problem: Safety Goal: Patient will be injury free during hospitalization Description: INTERVENTIONS: 1. Assess patient's risk for falls and implement fall prevention plan of care per policy 2. Provide and maintain a safe environment 3. Proper use of double Identifiers 4. Medication administration using the 5 rights 5. Hand hygiene 6. Specimens are labeled at the bedside 7. Instruct patient/ patient human resources hr representative about use of safety devices 8. Include patient/ patient human resources hr representative in decisions related to safety Outcome: Progressing Note: Evaluation of progress towards goal: Safety measures initiated/maintained. Pt remains safe from harm/injury/falls. Pt's risk for falls assessed and fall prevention implemented as needed, safe environment provided and maintained, hand hygiene completed. Call light within reach/ hourly roundingto meet needs/ safety equipment used as needed/up with assistance when needed. Problem: Infection Goal: Absence of infection during hospitalization Description: INTERVENTIONS 1. Assess and monitor for signs and symptoms of infection. 2. Monitor lab/diagnostic results. 3. Monitor all insertion sites i.e., indwelling lines, tubes and drains. 4. Monitor endotracheal (as able) and nasal secretions for changes in amount and color. 5. Administer medications as ordered. 6. Instruct and encourage patient and family to use good hand hygiene technique. 7. Identify and instruct patient/patient human resources hr representative in use of appropriate isolation precautionsfor identified infection/symptoms. 8. Provide and discuss with patient/patient human resources hr representative on educational MDRO sheet. 9. Encourage and monitor nutritional status daily and consult yarn packer if indicated. 10. Implement neutropenic guidelines as needed. Outcome: Progressing Note: Evaluation of progress towards goal: Patient afebrile at this time, patient VS WNL. Pt assessed and monitored for signs and symptoms of infection, lab and diagnostic results monitored as needed, administer medications as needed. Hand hygiene completed. Continue to monitor. Problem: Knowledge Deficit Goal: Patient/patient human resources hr representative demonstrates understanding of disease process, treatment plan,medications, and discharge instructions Description: INTERVENTIONS 1. Complete learning assessment and assess knowledge base 2. Provide teaching at level of understanding 3. Provide teaching via preferred learning method(s) Outcome: Progressing Note: Evaluation of progress towards goal: Pt learning and knowledge base assessed, teaching provided at an understandable level as needed, teaching provided via preferred learning method. POC discussed with patient, questions answered PRN. Problem: Discharge Planning Goal: Discharge to post-acute care, other facility, or home with appropriate resources Description: Patient's goal is: INTERVENTIONS 1. Conduct assessment to determine patient/family and health care team treatment goals, and need for post-acute services based on payer coverage, community resources, and patient preferences, and barriers to discharge 2. Coordinate with Social work, Care Navigation, and Utilization Review to arrange appropriate level of services according to patient's needs based on patient preference and payer coverage in collaboration with the physician and health care team 3. Address psychosocial, clinical, and financial barriers to discharge as identified in assessment in conjunction with the patient/family and health care team 4. Consult appropriate ancillary services (i.e.. PT/OT/ST, etc) as needed 5. Communicate with and update the patient/family, physician, and health care team regarding progress on the discharge plan 6. Identify discharge learning needs (meds, wound care, etc). 7. Arrange for needed discharge transportation as appropriate Outcome: Progressing Note: Evaluation of progress towards goal: Pt discharge initiated with attending provider, Pt/Family communicated with and updated regarding process on discharge as needed. Reviewed discharge plan and questions answered Problem: Potential for Compromised Skin Integrity Goal: Skin integrity is maintained or improved Description: Patient's goal is: INTERVENTIONS 1. Perform initial skin assessment on admission and as needed 2. Turn patient every 2 hours and PRN 3. Relieve pressure to bony prominences 4. Avoid shearing 5. Keep skin clean and dry 6. Alternate a full bath with partial baths for elderly 7. Apply lotion/moisturizer on skin 8. Monitor patient's hygiene practices 9. Float heels 10. Collaborate with interdisciplinary team and initiate plans and interventions as needed Outcome: Progressing Note: Evaluation of progress towards goal: Pt up in room ab brianna, ambulatory to bathroom, carl care preformed and carl pads changed. Goal: Patient's nutritional intake is adequate Description: Patient's goal is: INTERVENTIONS 1. Assess and monitor food intake and supplements, patient food preferences, nausea, vomiting, labs, oral cavity (gums, teeth, tongue, mucosa), proper denture fit, and cultural beliefs 2. Monitor for signs of hypoglycemia and hyperglycemia 3. Collaborate with interdisciplinary team and initiate plan and interventions as ordered 4. Monitor patient's weight 5. Assist patient with meals/food selection 6. Assist patient with eating 7. Allow adequate time for meals 8. Provide pleasant environment during mealtime 9. Increase social contact during mealtimes 10. Plan activities to conserve energy 11. Encourage/perform oral hygiene as appropriate 12. Encourage patient to take dietary supplement as ordered 13. Collaborate with clinical yarn packer 14. Include patient/ patient's human resources hr representative in decisions related to nutrition Outcome: Progressing Note: Evaluation of progress towards goal: Pt with adequate nutrition eating all meals Problem: Care Goal: Patient vital signs are stable Description: INTERVENTIONS 1. Assess vital signs - 2. Turn, cough, & deep breathe Outcome: Progressing Note: Evaluation of progress towards goal: Vital signs obtained every 15 minutes x 2 hours, every 4hours x 24 hours, then every 6 hours. VS WDL. Encouraged patient to use ISP and to turn, cough and deep breathe. Goal: Fundus firm at midline Description: INTERVENTIONS 1. Assess fundus Outcome: Progressing Note: Evaluation of progress towards goal: Fundus assessed, firm and midline. No interventions needed, will continue to monitor. Additional Comments: * Plan of Care - Mini Munoz RN - 12/25/2024 2:55 PM EDT Problem: Pain Goal: Patient goal is pain score less than 4, able to rest, and participant in treatment plan as appropriate Description: INTERVENTIONS: 1. Encourage patient or legal human resources hr representative to report early pain and ask for pain medicine when needed 2. Assess pain using appropriate pain scale and include the scale used when documenting 3. Administer analgesics based on type and severity of pain and evaluate response within appropriate time frame 4. Implement non-pharmacological measures as appropriate and evaluate response 5. Consider cultural and social influences on pain and pain management 6. Notify LIP if interventions ineffective or patient reports new pain 7. Monitor vital signs including pulse ox, end-tidal CO2 based on pain intervention 8. Reassess pain per policy 9. Teach patient or legal human resources hr representative interventions for comforting Outcome: Progressing Note: Evaluation of progress towards goal: PT MANAGING PAIN WITH SCHEDULED MEDICATIONS Problem: Safety Goal: Patient will be injury free during hospitalization Description: INTERVENTIONS: 1. Assess patient's risk for falls and implement fall prevention plan of care per policy 2. Provide and maintain a safe environment 3. Proper use of double Identifiers 4. Medication administration using the 5 rights 5. Hand hygiene 6. Specimens are labeled at the bedside 7. Instruct patient/ patient human resources hr representative about use of safety devices 8. Include patient/ patient human resources hr representative in decisions related to safety Outcome: Progressing Note: Evaluation of progress towards goal: PT INJURY FREE TO PRESENT. AMBULATES WITH STEADY GAIT Problem: Infection Goal: Absence of infection during hospitalization Description: INTERVENTIONS 1. Assess and monitor for signs and symptoms of infection. 2. Monitor lab/diagnostic results. 3. Monitor all insertion sites i.e., indwelling lines, tubes and drains. 4. Monitor endotracheal (as able) and nasal secretions for changes in amount and color. 5. Administer medications as ordered. 6. Instruct and encourage patient and family to use good hand hygiene technique. 7. Identify and instruct patient/patient human resources hr representative in use of appropriate isolation precautionsfor identified infection/symptoms. 8. Provide and discuss with patient/patient human resources hr representative on educational MDRO sheet. 9. Encourage and monitor nutritional status daily and consult yarn packer if indicated. 10. Implement neutropenic guidelines as needed. Outcome: Progressing Note: Evaluation of progress towards goal: NO S/S OF INFECTION. EDUCATION ABOUT INCISIONAL CARE PROVIDED Problem: Knowledge Deficit Goal: Patient/patient human resources hr representative demonstrates understanding of disease process, treatment plan,medications, and discharge instructions Description: INTERVENTIONS 1. Complete learning assessment and assess knowledge base 2. Provide teaching at level of understanding 3. Provide teaching via preferred learning method(s) Outcome: Progressing Note: Evaluation of progress towards goal: ONGOING EDUCATION Problem: Discharge Planning Goal: Discharge to post-acute care, other facility, or home with appropriate resources Description: Patient's goal is: INTERVENTIONS 1. Conduct assessment to determine patient/family and health care team treatment goals, and need for post-acute services based on payer coverage, community resources, and patient preferences, and barriers to discharge 2. Coordinate with Social work, Care Navigation, and Utilization Review to arrange appropriate level of services according to patient's needs based on patient preference and payer coverage in collaboration with the physician and health care team 3. Address psychosocial, clinical, and financial barriers to discharge as identified in assessment in conjunction with the patient/family and health care team 4. Consult appropriate ancillary services (i.e.. PT/OT/ST, etc) as needed 5. Communicate with and update the patient/family, physician, and health care team regarding progress on the discharge plan 6. Identify discharge learning needs (meds, wound care, etc). 7. Arrange for needed discharge transportation as appropriate Outcome: Progressing Note: Evaluation of progress towards goal: ONGOING PLANNING Additional Comments: * Plan of Care - Miriam Alexandre RN - 12/25/2024 5:06 AM EDT Additional Comments: * Plan of Care - Mini Munoz RN - 12/24/2024 4:45 PM EDT Problem: Pain Goal: Patient goal is pain score less than 4, able to rest, and participant in treatment plan as appropriate Description: INTERVENTIONS: 1. Encourage patient or legal human resources hr representative to report early pain and ask for pain medicine when needed 2. Assess pain using appropriate pain scale and include the scale used when documenting 3. Administer analgesics based on type and severity of pain and evaluate response within appropriate time frame 4. Implement non-pharmacological measures as appropriate and evaluate response 5. Consider cultural and social influences on pain and pain management 6. Notify LIP if interventions ineffective or patient reports new pain 7. Monitor vital signs including pulse ox, end-tidal CO2 based on pain intervention 8. Reassess pain per policy 9. Teach patient or legal human resources hr representative interventions for comforting Outcome: Progressing Note: Evaluation of progress towards goal: PT EDUCATED ON PAIN MANAGEMENT OPTIONS AND TECHNIQUES Problem: Safety Goal: Patient will be injury free during hospitalization Description: INTERVENTIONS: 1. Assess patient's risk for falls and implement fall prevention plan of care per policy 2. Provide and maintain a safe environment 3. Proper use of double Identifiers 4. Medication administration using the 5 rights 5. Hand hygiene 6. Specimens are labeled at the bedside 7. Instruct patient/ patient human resources hr representative about use of safety devices 8. Include patient/ patient human resources hr representative in decisions related to safety Outcome: Progressing Note: Evaluation of progress towards goal: PT AMBULATES WITH STEADY GAIT. INJURY FREE TO PRESENT Problem: Infection Goal: Absence of infection during hospitalization Description: INTERVENTIONS 1. Assess and monitor for signs and symptoms of infection. 2. Monitor lab/diagnostic results. 3. Monitor all insertion sites i.e., indwelling lines, tubes and drains. 4. Monitor endotracheal (as able) and nasal secretions for changes in amount and color. 5. Administer medications as ordered. 6. Instruct and encourage patient and family to use good hand hygiene technique. 7. Identify and instruct patient/patient human resources hr representative in use of appropriate isolation precautionsfor identified infection/symptoms. 8. Provide and discuss with patient/patient human resources hr representative on educational MDRO sheet. 9. Encourage and monitor nutritional status daily and consult yarn packer if indicated. 10. Implement neutropenic guidelines as needed. Outcome: Progressing Note: Evaluation of progress towards goal: NO S/S OF INFECTION NOTED. GOOD HAND HYGIENE MAINTAINED Problem: Knowledge Deficit Goal: Patient/patient human resources hr representative demonstrates understanding of disease process, treatment plan,medications, and discharge instructions Description: INTERVENTIONS 1. Complete learning assessment and assess knowledge base 2. Provide teaching at level of understanding 3. Provide teaching via preferred learning method(s) Outcome: Progressing Note: Evaluation of progress towards goal: ONGOING EDUCATION ABOUT PROCESS OF INDUCTION, LABOR, ANDDELIVERY Problem: Discharge Planning Goal: Discharge to post-acute care, other facility, or home with appropriate resources Description: Patient's goal is: INTERVENTIONS 1. Conduct assessment to determine patient/family and health care team treatment goals, and need for post-acute services based on payer coverage, community resources, and patient preferences, and barriers to discharge 2. Coordinate with Social work, Care Navigation, and Utilization Review to arrange appropriate level of services according to patient's needs based on patient preference and payer coverage in collaboration with the physician and health care team 3. Address psychosocial, clinical, and financial barriers to discharge as identified in assessment in conjunction with the patient/family and health care team 4. Consult appropriate ancillary services (i.e.. PT/OT/ST, etc) as needed 5. Communicate with and update the patient/family, physician, and health care team regarding progress on the discharge plan 6. Identify discharge learning needs (meds, wound care, etc). 7. Arrange for needed discharge transportation as appropriate Outcome: Progressing Note: Evaluation of progress towards goal: ONGOING PLANNING Problem: Labor & Delivery Goal: Patient vital signs are stable Description: INTERVENTIONS 1. Assess vital signs - vaginal delivery Admission Vital Signs: - Baseline temperature, pulse, respirations, blood pressure Dilation Complete / Pushing Phase: - Pulse, respirations, and blood pressure every 30 minutes - Temperature every 4 hours until rupture of membranes THEN every 2 hours - Temperature every 1 hour if greater than 100 F Post-Delivery Recovery Phase: - Pulse, respirations, and blood pressure every 15 minutes times 2 hours - Temperature after delivery THEN every 4 hours times 2 Phase: - Pulse, respirations, and blood pressure every 6 hours - Temperature every 6 hours Outcome: Progressing Note: Evaluation of progress towards goal: STABLE Problem: Induction Goal: Patient will not have tachysystole during labor Description: INTERVENTIONS 1. Monitor contraction pattern as ordered 2. Discontinue induction agent in the presence of tachysystole Outcome: Progressing Note: Evaluation of progress towards goal: FREE OF TACHYSYSTOLE TO PRESENT Goal: Fetus will have heart rate and variability within normal [place] Description: INTERVENTION 1. Assess heart rate pattern as ordered Outcome: Progressing Note: Evaluation of progress towards goal: CLOSE MONITORING CONTINUED Problem: Labor pain/anxiety Goal: Patient will verbalize decreased anxiety about labor Description: INTERVENTION 1. Educate patient about the labor process Outcome: Progressing Note: Evaluation of progress towards goal: ANXIETY AT MINIMUM TO PRESENT. PT EASILY COUNSELED Goal: Patient will verbalize decreased pain during labor and deliv Description: INTERVENTIONS 1. Educate patient about the labor process 2. Educate patient about pain management options Outcome: Progressing Note: Evaluation of progress towards goal: MANAGING WITH AVAILABLE TECHNIQUES Goal: Patient will not show signs/symptoms of intolerance Description: INTERVENTION 1. Educate patient about pain management options Outcome: Progressing Note: Evaluation of progress towards goal: NO INTOLERANCE NOTED Goal: Fetus will not show intolerance of labor Description: INTERVENTION 1. Monitor electronic monitoring as ordered Outcome: Progressing Note: Evaluation of progress towards goal: NO INTOLERANCE NOTED TO PRESENT Additional Comments: * Plan of Care - Lola Armstrong RN - 12/24/2024 4:47 AM EDT Problem: Pain Goal: Patient goal is pain score less than 4, able to rest, and participant in treatment plan as appropriate Description: INTERVENTIONS: 1. Encourage patient or legal human resources hr representative to report early pain and ask for pain medicine when needed 2. Assess pain using appropriate pain scale and include the scale used when documenting 3. Administer analgesics based on type and severity of pain and evaluate response within appropriate time frame 4. Implement non-pharmacological measures as appropriate and evaluate response 5. Consider cultural and social influences on pain and pain management 6. Notify LIP if interventions ineffective or patient reports new pain 7. Monitor vital signs including pulse ox, end-tidal CO2 based on pain intervention 8. Reassess pain per policy 9. Teach patient or legal human resources hr representative interventions for comforting Outcome: Progressing Note: Evaluation of progress towards goal: Pt able to report pain according to 0/10 pain scale. Medicating patient for pain per orders. Pt encouraged to report early pain, analgesics administered as needed, hourly rounding completed and pain assessed. Problem: Safety Goal: Patient will be injury free during hospitalization Description: INTERVENTIONS: 1. Assess patient's risk for falls and implement fall prevention plan of care per policy 2. Provide and maintain a safe environment 3. Proper use of double Identifiers 4. Medication administration using the 5 rights 5. Hand hygiene 6. Specimens are labeled at the bedside 7. Instruct patient/ patient human resources hr representative about use of safety devices 8. Include patient/ patient human resources hr representative in decisions related to safety Outcome: Progressing Note: Evaluation of progress towards goal: Safety measures initiated/maintained. Pt remains safe from harm/injury/falls. Pt's risk for falls assessed and fall prevention implemented as needed, safe environment provided and maintained, hand hygiene completed. Call light within reach/ hourly roundingto meet needs/ safety equipment used as needed/up with assistance when needed. Problem: Infection Goal: Absence of infection during hospitalization Description: INTERVENTIONS 1. Assess and monitor for signs and symptoms of infection. 2. Monitor lab/diagnostic results. 3. Monitor all insertion sites i.e., indwelling lines, tubes and drains. 4. Monitor endotracheal (as able) and nasal secretions for changes in amount and color. 5. Administer medications as ordered. 6. Instruct and encourage patient and family to use good hand hygiene technique. 7. Identify and instruct patient/patient human resources hr representative in use of appropriate isolation precautionsfor identified infection/symptoms. 8. Provide and discuss with patient/patient human resources hr representative on educational MDRO sheet. 9. Encourage and monitor nutritional status daily and consult yarn packer if indicated. 10. Implement neutropenic guidelines as needed. Outcome: Progressing Note: Evaluation of progress towards goal: Patient is free from signs and symptoms of infection. Problem: Knowledge Deficit Goal: Patient/patient human resources hr representative demonstrates understanding of disease process, treatment plan,medications, and discharge instructions Description: INTERVENTIONS 1. Complete learning assessment and assess knowledge base 2. Provide teaching at level of understanding 3. Provide teaching via preferred learning method(s) Outcome: Progressing Note: Evaluation of progress towards goal: Pt learning and knowledge base assessed, teaching provided at an understandable level as needed, teaching provided via preferred learning method. POC discussed with patient, questions answered PRN. Problem: Discharge Planning Goal: Discharge to post-acute care, other facility, or home with appropriate resources Description: Patient's goal is: INTERVENTIONS 1. Conduct assessment to determine patient/family and health care team treatment goals, and need for post-acute services based on payer coverage, community resources, and patient preferences, and barriers to discharge 2. Coordinate with Social work, Care Navigation, and Utilization Review to arrange appropriate level of services according to patient's needs based on patient preference and payer coverage in collaboration with the physician and health care team 3. Address psychosocial, clinical, and financial barriers to discharge as identified in assessment in conjunction with the patient/family and health care team 4. Consult appropriate ancillary services (i.e.. PT/OT/ST, etc) as needed 5. Communicate with and update the patient/family, physician, and health care team regarding progress on the discharge plan 6. Identify discharge learning needs (meds, wound care, etc). 7. Arrange for needed discharge transportation as appropriate Outcome: Progressing Note: Evaluation of progress towards goal: Pt discharge initiated with attending provider, Pt/Family communicated with and updated regarding process on discharge as needed. Reviewed discharge plan and questions answered Problem: Labor & Delivery Goal: Manages discomfort Description: Assess and monitor for signs and symptoms of discomfort. Assess patient's pain level regularly and per hospital policy. Administer medications as ordered. Support use of nonpharmacological methods to help control pain such as distraction, imagery, relaxation, and application of heat and cold. Collaborate with interdisciplinary team and patient to determine appropriate pain managementplan. INTERVENTIONS 1. Include patient in decisions related to comfort 2. Offer non-pharmacological pain management interventions 3. Report ineffective pain management to physician Outcome: Progressing Note: Evaluation of progress towards goal: Patient offered the yoga ball and peanut ball. Position changed frequently. Patient showed multiple ways to change positions and IV analgesia and epidural available if needed. Goal: Patient vital signs are stable Description: INTERVENTIONS 1. Assess vital signs - vaginal delivery Admission Vital Signs: - Baseline temperature, pulse, respirations, blood pressure Dilation Complete / Pushing Phase: - Pulse, respirations, and blood pressure every 30 minutes - Temperature every 4 hours until rupture of membranes THEN every 2 hours - Temperature every 1 hour if greater than 100 F Post-Delivery Recovery Phase: - Pulse, respirations, and blood pressure every 15 minutes times 2 hours - Temperature after delivery THEN every 4 hours times 2 Phase: - Pulse, respirations, and blood pressure every 6 hours - Temperature every 6 hours Outcome: Progressing Note: Evaluation of progress towards goal: Blood pressure, heart rate and respirations monitored every four hours on while cervidil in place. Temperature checked every 4 hours before rupture of membranes, then every 2 hours after rupture. Pain monitored continuously. Problem: Induction Goal: Patient will not have tachysystole during labor Description: INTERVENTIONS 1. Monitor contraction pattern as ordered 2. Discontinue induction agent in the presence of tachysystole Outcome: Progressing Note: Evaluation of progress towards goal: Continuous EFM continued. Will discontinue induction agent in the presence of tachysystole. Goal: Fetus will have heart rate and variability within normal [place] Description: INTERVENTION 1. Assess heart rate pattern as ordered Outcome: Progressing Note: Evaluation of progress towards goal: Variability WNL at this time. Will continue to monitor EFM. Goal: Patient will verbalize understanding of induction process Description: INTERVENTION 1. Educate patient about the induction process Outcome: Progressing Note: Evaluation of progress towards goal: Induction and augmentation plan reviewed with patient. Patient will have to be monitored frequently/continuously throughout the process. Patient verbalizes understanding. Problem: Labor pain/anxiety Goal: Patient will verbalize decreased anxiety about labor Description: INTERVENTION 1. Educate patient about the labor process Outcome: Progressing Note: Evaluation of progress towards goal: Patient verbalized understanding of induction process. Questions will be answered when asked. Goal: Patient will verbalize decreased pain during labor and deliv Description: INTERVENTIONS 1. Educate patient about the labor process 2. Educate patient about pain management options Outcome: Progressing Note: Evaluation of progress towards goal: Educated patient on labor process and discussed pain management. Patient offered the yoga ball and peanut ball. Position changed frequently. Patient showed multiple ways to change positions and IV analgesia and epidural available if needed. Goal: Patient will verbalize understanding of the labor and delive Description: INTERVENTION 1. Educate patient about the labor process Outcome: Progressing Note: Evaluation of progress towards goal: Discussed pain management with patient and Patient offered the yoga ball and peanut ball. Position changed frequently. Patient showed multiple ways to change positions and IV analgesia and epidural available if needed. Spinning babies attempted, lights dimmed, environment calm and quiet, allowing patient to rest when needed, and RN helps patient through any anxiety or intolerance patient may have. Goal: Patient will not show signs/symptoms of intolerance Description: INTERVENTION 1. Educate patient about pain management options Outcome: Progressing Note: Evaluation of progress towards goal: Discussed pain management with patient and Patient offered the yoga ball and peanut ball. Position changed frequently. Patient showed multiple ways to change positions and IV analgesia and epidural available if needed. Spinning babies attempted, lights dimmed, environment calm and quiet, allowing patient to rest when needed, and RN helps patient through any anxiety or intolerance patient may have. Goal: Fetus will not show intolerance of labor Description: INTERVENTION 1. Monitor electronic monitoring as ordered Outcome: Progressing Note: Evaluation of progress towards goal: Patient placed on electronic monitors or used IA when appropriate. FHR and contractions checked at ordered times for a category I tracing, or placed on continuous EFM when category II or III. Strip continuously monitored when continuous EFM on patient. RN monitoring fetus for any signs of intolerance of labor including decelerations, variability, or any changes in FHR, as well as tachysystole. Additional Comments: documented in this encounter Plan of Treatment DateTypeDepartmentCare Team (Latest Contact Info)Kcyayaqpcul41/22/2025 9:00 AM ESTOffice Visit [facility] [address] [facility] [address] [place] [address] Nigel Kincaid MD [address] [place] [address] 03/01/2025 10:00 AM ESTOffice Visit [facility] [address] [facility] [address] [address] [place] [address] Alice Michel MD [address] [facility] [address] [address] [place] [address] documented as of this encounter Procedures Procedure NamePriorityDate/TimeAssociated DiagnosisCommentsCBC (NO DIFF)Routine 12/25/2024 5:25 AM EDT C-LPWAROV5512/24/2024 9:05 PM EDT Intolerance of Labor Other (Add Comments) Case Notes maternal decision EXTRA TUBES PST NFMRyrsnqe85/29/2025 5:52 PM EDT SYPHILIS TOTAL(UNKNOWN SYPHILIS STATUS)Ihpvowv7312/23/2024 5:52 PM EDT EXTRA NUXTZAvqkkyz28/29/2025 5:52 PM EDT CBC (NO DIFF)STAT1 5:52 PM EDT TYPE AND WNWJGMGHHX83/29/2025 5:52 PM EDT documented in this encounter Results * (ABNORMAL) CBC without diff (12/25/2024 5:25 AM EDT)ComponentValueRef Range Test MethodAnalysis TimePerformed AtPathologist EqawjsayyKDM20.6(H)4 - 11 x10E9/L1 5:51 AM EDTPSELECT MEDICAL [facility], BEACHWOODRBC Count3.81 3.8 - 5.2 X10E12/L1 5:51 AM [facility] Spbfsqvghj88.3(L)11.7 - 15.5 g/dL12/25/2024 5:51 AM [facility]ITALHematocrit33.5(L)35 - 47 %12/25/2024 5:51 AM TPSELECT [facility], BEACHWOODMCV8880 - 100 fL12/25/2024 5:51 AM EDTPSELECT [facility], BEACHWOODMCH29.827 - 34 pg12/25/2024 5:51 AM [facility]ITALMCHC33.932 - 36 g/dL12/25/2024 5:51 AM [facility]PITALRDW15.011.5 - 15 %12/25/2024 5:51 AM [facility]ITALPlatelet Qrqdn092107 - 450 X10E9/L1 5:51 AM EDST[facility]OSPITALMPV9.97 - 12 fL12/25/2024 5:51 AM EDT [facility] (Source)Anatomical Location / LateralityCollection Method / VolumeCollection TimeReceived TimeBloodVenous blood / UnknownVenipuncture / Bkvhuzh6712/25/2024 5:25 AM EDT1 5:39 AM EDT Narrative Authorizing ProviderResult TypeResult StatusStephanie A Richi GREASE REMOVER-CNMLAB BLOOD ORDERABLESFinal ResultPerforming OrganizationAddressCity/State/ZIP CodePhone Number [address] [place] [address], [place] * PST TOP (12/23/2024 5:52 PM EDT)ComponentValueRef RangeTest MethodAnalysis TimePerformed AtPathologist SignatureExtra TubeAuto Yzxcarnq16/29/2025 7:01 PM [facility] ([facility])Anatomical Location / LateralityCollection Method / VolumeCollection TimeReceived TimeBloodVenous blood / Pwuhwen5812/23/2024 5:52 PM EDT1 6:12 PM EDT Narrative Authorizing ProviderResult TypeResult StatusKathleen S Ros GREASE REMOVER-CNMLAB BLOOD ORDERABLESFinal ResultPerforming OrganizationAddressCity/State/ZIP CodePhone Number [address] [place] [address], [place] * CBC without diff (12/23/2024 5:52 PM EDT)ComponentValueRef RangeTest Method Analysis TimePerformed AtPathologist SignatureWBC8.64 - 11 x10E9/L1 6:17 PM EDTPSELECT MEDICAL [facility]OSPITAL, BEACHWOODRBC Count4.593.8 - 5.2 X10E12/L 12/23/2024 6:17 PM EDTPSELECT [facility], BEACHWOODHemoglobin13.411.7 - 15.5 g/dL12/23/2024 6:17 PM EDTPSELECT [facility], BEACHWOODHematocrit 39.935 - 47 %12/23/2024 6:17 PM EDTPSELECT [facility], BEACHWOODMCV8780 - 100 fL12/23/2024 6:17 PM EDTPSELECT [facility], BEACHWOODMCH29.227 - 34 pg12/23/2024 6:17 PM EDTPSELECT [facility], BEACHWOODMCHC33.732 - 36 g/dL12/23/2024 6:17 PM EDTPSELECT [facility], BEACHWOODRDW14.911.5 - 15 %12/23/2024 6:17 [address] EDST[address] [facility] HOSPITALPlatelet Jjkjq407715 - 450 X10E9/L1 6:17 PM EDTPSELECT [facility], BEACHWOODMPV9.67 - 12 fL12/23/2024 6:17 PM EDACMC HEALTHCARE SYSTEMpecimen (Source)Anatomical Location / LateralityCollection Method / VolumeCollection TimeReceived TimeBloodVenous blood / UnknownVenipuncture / Imibeyi1712/23/2024 5:52 PM EDT1 6:12 PM EDT Narrative Authorizing ProviderResult TypeResult StatusKathleen Chris Sommer GREASE REMOVER-CNMLAB BLOOD ORDERABLESFinal ResultPerforming OrganizationAddressCity/State/ZIP CodePhone Number [facility] [address] [place] [address], * Type and screen(includes indirect callie) (12/23/2024 5:52 PM EDT)Component ValueRef RangeTest MethodAnalysis TimePerformed AtPathologist SignatureABOAB 12/23/2024 7:22 PM EDTFRE BB - JDBFROIRKSdgliatj59/29/2025 7:22 PM EDTFRE BB - WELLSKYAntibody TcnvzxSbwuaxys57/29/2025 7:22 PM EDTFRE BB - WELLSKYSpecimen (Source)Anatomical Location / LateralityCollection Method / VolumeCollection TimeReceived TimeBloodVenous blood / UnknownVenipuncture / Udrfbbn7212/23/2024 5:52 PM EDT1 6:12 PM EDT Narrative Authorizing ProviderResult TypeResult StatusKatjaycob Sommer GREASE REMOVER-CNMBLOOD BANK TEST ORDERABLESEdited Result - FinalPerforming OrganizationAddressCity/State/ZIP CodePhone Number [facility]URIC[facility] MERINO [address] [place] [address], * Syphilis Total (Unknown Syphilis Status) (12/23/2024 5:52 PM EDT)Component ValueRef RangeTest MethodAnalysis TimePerformed AtPathologist Signature SYPHILIS TOTAL<0.2<=0.8 AI12/24/2024 1:01 PM EDTHE [facility] LABORATORYSpecimen (Source)Anatomical Location / LateralityCollection Method / VolumeCollection TimeReceived TimeBloodVenous blood / UnknownVenipuncture / Gkkqjnk4712/23/2024 5:52 PM EDT1 6:12 PM EDT Narrative [facility] - 12/24/2024 1:01 PM EDT NON REACTIVE No serologic evidence of infection to Treponema pallidum. Repeat testing may be considered in patients with suspected acute or primary syphilis in 2 to 4 weeks. Authorizing ProviderResult TypeResult StatusAnnjaycob Sommer GREASE REMOVER-CNMLAB BLOOD ORDERABLESFinal ResultPerforming OrganizationAddressCity/State/ZIP CodePhone Number [facility] 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 delivery delivered delivery, without mention of indication, delivered, with or without mention of antepartum condition care following delivery Encounter for elective induction of labor care following delivery Lactating mother care and examination of lactating mother 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 documented in this encounter Admitting Diagnoses Diagnosis Encounter for elective induction of labor documented in this encounter Administered Medications Medication OrderMAR ActionAction DateDoseRateSite acetaminophen (TYLENOL EXTRA STRENGTH) 500 mg tablet - Pyxis Override Pull Starting on Stephani 12/24/24 at 2036, For 1 dose, Tre Nur: cabinet override acetaminophen (TYLENOL EXTRA STRENGTH) tablet 1,000 mg 1,000 mg, oral, Once, On Stephani 12/24/24 at 2015, For 1 dose, L&D Pre-Delivery Given12/24/2024 8:39 PM EDT1,000 mg acetaminophen (TYLENOL EXTRA STRENGTH) tablet 1,000 mg 1,000 mg, oral, Every 8 hours, First dose on Sat12/25/24 at 0100, , Alternate administration every 4 hours with ketorolac or ibuprofen Given12/27/2024 9:17 AM EST1,000 etLohvi2912/27/2024 1:15 AM EDT1,000 mgGiven 12/26/2024 5:26 PM EDT1,000 mg acetaminophen (TYLENOL) tablet 650 mg 650 mg, oral, Every 4 hours PRN, mild pain - pain scale 1-3, Starting on Sat12/23/24 at 1733, L&D Pre-Delivery Given12/24/2024 6:00 PM VEQ714 wgVkecd4112/24/2024 5:33 AM IQR859 mg bisacodyL (DULCOLAX) suppository 10 mg 10 mg, rectal, Once as needed, constipation, no relief from docusate or senna/docusate, Starting oni 12/25/24 at 0000, For 1 dose, , Start 2nd day Look-alike/sound-alike medication - verify indication for use. carboprost (HEMABATE) injection 250 mcg 250 mcg, intramuscular, Once as needed, hemorrhage management, Starting on Stephani 12/24/24 at 2013, For 1 dose, , Administer as directed by provider for Hemorrhage management. DO NOT ADMINISTER IV. Contraindicated if patient has a history of asthma or cardiovascular disease carboprost (HEMABATE) injection 250 mcg 250 mcg, intramuscular, Once as needed, hemorrhage management, Starting on Stephani 12/24/24 at 2242, For 1 dose, , Administer as directed by provider for Hemorrhage management. DO NOT ADMINISTER IV. Contraindicated if patient has a history of asthma or cardiovascular disease clindamycin (CLEOCIN) 600 mg/50 mL IVPB Premix - Pyxis Override Pull Starting on Sat12/23/24 at 1957, For 1 dose, Tre Nur: cabinet override clindamycin (CLEOCIN) IVPB 600 mg/50 mL in dextrose 5% (12 mg/mL premix) 600 mg, intravenous, at 100 mL/hr, Administer over 30 Minutes, Every 8 hours, First dose on Sat12/23/24 at 1945, L&D Pre-Delivery, Indication: Other, Specify: ureaplasma urealyticum Rate/Dose Loxusl7212/25/2024 4:20 AM NZU234 mL/hwTxexyhyem32/31/2025 3:55 AM EDT 100 mL/hrNew Bag12/25/2024 3:51 AM VCV762 mg100 mL/hr clindamycin (CLEOCIN) IVPB 600 mg/50 mL in dextrose 5% (12 mg/mL premix) 600 mg, intravenous, at 100 mL/hr, Administer over 30 Minutes, Every 8 hours, First dose on Sat12/25/24 at 1200, For 2 days, NEXT DOSE TO START AT 1200, Indication: Gynecologic infection New 12/27/2024 4:38 AM [id number] mg100 mL/hrNew 12/26/2024 8:19 PM OJV910 mg 100 mL/hrNew 12/26/2024 12:17 PM RRT160 mg100 mL/hr dinoprostone (CERVIDIL) vaginal insert 10 mg 10 mg, vaginal, Administer over 12 Hours, Once, On Sat12/23/24 at 1745, For 1 dose, L&D Pre-Delivery, Remove 30 minutes prior to start of induction with oxytocin (PITOCIN), and/or tachysystole contraction pattern (more than 5 contractions in a 10 minute segment averaged over 30 minutes) not resolved by changing maternal position and IV hydration, and/or inability to monitor patient's FHR or uterine contraction pattern at recommended intervals, and/or a FHR Category 2 with significant decelerations develops, and/or a FHR Category 3 develops. Patient to remain in bed at least 120 minutes post-insertion Medication Spmdsdx4012/23/2024 7:07 PM EDT10 mg dinoprostone (CERVIDIL) vaginal insert 10 mg 10 mg, vaginal, Administer over 12 Hours, Once, On Stephani 12/24/24 at 1000, For 1 dose, L&D Pre-Delivery, Remove 30 minutes prior to start of induction with oxytocin (PITOCIN), and/or tachysystole contraction pattern (more than 5 contractions in a 10 minute segment averaged over 30 minutes) not resolved by changing maternal position and IV hydration, and/or inability to monitor patient's FHR or uterine contraction pattern at recommended intervals, and/or a FHR Category 2 with significant decelerations develops, and/or a FHR Category 3 develops. Patient to remain in bed at least 120 minutes post-insertion Medication Rtkhnpq7112/24/2024 10:10 AM EDT10 mg diphth,pertus(acell),tetanus (BOOSTRIX) injection 0.5 mL 0.5 mL, intramuscular, During hospitalization, immunization, Starting on Stephani 12/24/24 at 2242, For 1 dose, , Give before discharge, if patient not vaccinated during this For use in children, adolescents, and adults 7 years of age and older. docusate sodium (COLACE) capsule 100 mg 100 mg, oral, 2 times daily, First dose on Stephani 12/24/24 at 2245, , Look-alike/sound-alikemedication - verify indication for use. Given12/27/2024 9:17 AM FSA729 wiCvrxj9512/26/2024 8:49 PM OSO759 mgGiven 12/26/2024 9:17 AM YVK008 mg doxycycline (VIBRAMYCIN) capsule 100 mg 100 mg, oral, 2 times daily, First dose on [place] 12/27/24 at 0900, For 7 days, May give with meals to decrease GI upset. Administer with at least 8 ounces of water and have patient sit up for at least 30 minutes after taking to reduce the risk of esophageal irritation and ulceration., Indication: UTI Given12/27/2024 9:17 AM SCI684 mg famotidine (PF) (PEPCID) injection 20 mg 20 mg, intravenous, Once, On Stephani 12/24/24 at 2015, For 1 dose, L&D Pre-Delivery, Administer 30 minutes prior to surgery Dilute to total volume of 5 mL with 0.9% sod chl and administer IVP over 2 minutes. Given12/24/2024 8:43 PM EDT20 mg hydrocortisone (ANUSOL-HC) 2.5 % rectal cream 1 Application 1 Application, rectal, As needed, hemorrhoids, Starting on Stephani 12/24/24 at 2242, , May keep at bedside, Indications: hemorrhoids Indications:hemorrhoids ibuprofen (MOTRIN) tablet 800 mg 800 mg, oral, Every 8 hours, First dose on 12/26/24 at 0500, , Alternate administration every 4 hours with acetaminophen Look-alike/sound-alike medication - verify indication for use. Take/Give with food or milk. Given12/27/2024 5:07 AM DLR651 zgEvoeg0212/26/2024 8:49 PM RCX789 mgGiven 12/26/2024 12:46 PM BUL993 mg ketorolac (TORADOL) injection 30 mg 30 mg, intravenous, Every 8 hours, First dose on Sat12/25/24 at 0500, For 24 hours, , Alternate administration every 4 hours with acetaminophen Look-alike/sound-alike medication - verify indication for use. Duration of therapy is not to exceed 5 days. Maximum recommended dose + 120mg/24 hours. Given12/25/2024 9:11 PM EDT30 klGcuzl9412/25/2024 12:20 PM EDT30 ewDdnnz0912/25/2024 5:28 AM EDT30 mg lactated ringers bolus 500 mL, intravenous, at 968 mL/hr, Administer over 31 Minutes, As needed, to improve utero-placental perfusions and/or relieve cord compression and/or tachysystole contraction pattern, Starting on Sat12/23/24 at 1733, For 2 doses, (tacysystole contraction pattern = more than 5 contractions in a 10minute segment averaged over 30 minutes). Max of 1000 mL New Bag12/24/2024 6:26 PM SHA923 mL968 mL/hr lactated ringers bolus 1,000 mL, intravenous, at 984 mL/hr, Administer over 61 Minutes, Once, On Stephani 12/24/24 at 2015, For1 dose, L&D Pre-Delivery, On fluid-restricted patients, such as pre-eclampsia, consult physician regarding IV rate New Bag12/24/2024 8:19 PM EDT1,000 mL984 mL/hr lactated ringers infusion 125 mL/hr, intravenous, Continuous, Starting on Sat12/23/24 at 1745, For 49 hours, L&D Pre-Delivery Rate/Dose Lqyamc2012/24/2024 6:59 PM GJC451 mL/hrRate/Dose Dsbykl1612/24/2024 6:59 PM SBX567 mL/hr125 mL/hrRate/Dose Svszib7412/24/2024 4:37 PM GBY376 mL/hr lactated ringers infusion 83 mL/hr, intravenous, Continuous PRN, post-delivery hemostasis, Starting on Stephani 12/24/24 at 2012, For 1 day, , Administer for 4 hours. Administer with Oxytocin bolus and infusion Rate/Dose Msabnp0612/25/2024 2:29 AM EDT83 mL/hrNew Bag12/24/2024 11:05 PM EDT83 mL/hr83 mL/hr lactated ringers infusion 125 mL/hr, intravenous, Continuous, Starting on Stephani 12/24/24 at 2014, For 1 day, , Start after 4 hour oxytocin (PITOCIN) infusion and lactated ringers infusion is completed. Gpxqwknae63/31/2025 4:31 AM GRX962 mL/hrRate/Dose Aiowdg6312/25/2024 3:08 AM EDT 125 mL/hr125 mL/hr lactated ringers infusion 125 mL/hr, intravenous, Continuous, Starting on Stephani 12/24/24 at 2015, For 1 day, L&D Pre-Delivery Rate/Dose Yrmvzt9612/25/2024 4:33 AM NFO153 mL/hrNew Bag12/25/2024 4:33 AM OPR517 mL/hr125 mL/hr measles, mumps and rubella vaccine (M-M-R II) injection 0.5 mL 0.5 mL, subcutaneous, During hospitalization, immunization, If Rubella titer Not Immune or Equivocal before discharge, Starting on Sat12/24/24 at 2242, For 1 dose, , Refer to Sherley for administration instructions., Indications: rotmyns-bngbg-cepkflu vaccination Indications:uffasyo-irkgz-wwulhfu vaccination methylergonovine (METHERGINE) injection 200 mcg 200 mcg, intramuscular, Once as needed, hemorrhage treatment, Starting on Stephani 12/24/24 at 2012, For 1 dose, , For hemorrhage treatment, administer as directed by provider for Hemorrhage management. DO NOT ADMINISTER IV. Contraindicated if patient has a hypersensitivity of Systolic BP greater than 140 or Diastolic BP greater than 90. Look-alike/sound-alike medication - verify indication for use. methylergonovine (METHERGINE) injection 200 mcg 200 mcg, intramuscular, Once as needed, hemorrhage treatment, Starting on Stephani 12/24/24 at 2242, For 1 dose, , For hemorrhage treatment, administer as directed by provider for Hemorrhage management. DO NOT ADMINISTER IV. Contraindicated if patient has a hypersensitivity of Systolic BP greater than 140 or Diastolic BP greater than 90. Look-alike/sound-alike medication - verify indication for use. miSOPROStoL (CYTOTEC) tablet 800 mcg 800 mcg, sublingual, Once as needed, hemorrhage treatment, Starting on Stephani 12/24/24 at 2012, For 1 dose, , Administer as directed by provider for Hemorrhage management. Use only if Hypertensive and Asthmatic. Look-alike/sound-alike medication - verify indication for use. miSOPROStoL (CYTOTEC) tablet 800 mcg 800 mcg, sublingual, Once as needed, hemorrhage treatment, Starting on Stephani 12/24/24 at 2241, For 1 dose, , Administer as directed by provider for Hemorrhage management. Use only if Hypertensive and Asthmatic. Look-alike/sound-alike medication - verify indication for use. modified lanolin (LANSINOH) 100 % cream cream 1 Application 1 Application, topical, As needed, sore/cracked nipples, Starting on Stephani 12/24/24 at 2, , May keep at bedside Given12/24/2024 11:37 PM EDT1 Application nalbuphine (NUBAIN) injection 10 mg 10 mg, intramuscular, Every 3 hours PRN, moderate pain - pain scale 4-6, severe pain - pain scale 7-10, Starting on Stephani 12/24/24 at 0555, Look-alike/sound-alike medication - verify indication for use. Given12/24/2024 12:14 PM EDT10 mgRight Anterior UaektMrjgo16/30/2025 9:03 AM EDT 10 mgRight Anterior Thigh naloxone (NARCAN) injection 0.1 mg 0.1 mg, intravenous, As needed, opioid reversal, patient unarousable OR respirations remain less than 8/minute OR SpO2 remains less than 90%, Starting on Stephani 12/24/24 at 2220, , Administer over 15 seconds every 2 minutes as needed for a maximum of 0.4 mg (4 doses total). Look-alike/sound-alike medication - verify indication for use. ondansetron (PF) (ZOFRAN) injection 4 mg 4 mg, intravenous, Every 6 hours PRN, nausea, vomiting, Starting on Stephani 12/24/24 at 1746, Intravenous administration preferred to be given over 2-5 minutes. Given12/24/2024 6:00 PM EDT4 mg ondansetron (PF) (ZOFRAN) injection 4 mg 4 mg, intravenous, Every 4 hours PRN, nausea, vomiting, Starting on Sat12/25/24 at 0011, Intravenous administration preferred to be given over 2-5 minutes. Given12/25/2024 12:39 AM EDT4 mg oxyCODONE (ROXICODONE) immediate release tablet 10 mg 10 mg, oral, Every 4 hours PRN, severe pain - pain scale 7-10, breakthrough pain, Starting on Stephani 12/24/24 at 2242, , Look-alike/sound-alike medication - verify indication for use. Immediate release. Given12/27/2024 2:46 AM EST10 mtXadhk0912/26/2024 11:21 PM EDT10 roZiyyf5812/26/2024 5:25 PM EDT10 mg oxyCODONE (ROXICODONE) immediate release tablet 5 mg 5 mg, oral, Every 4 hours PRN, moderate pain - pain scale 4-6, breakthrough pain, Starting on Stephani 12/24/24 at 2242, , Look-alike/sound-alike medication - verify indication for use. Immediate release. Given12/27/2024 9:32 AM EST5 sqXifps5512/25/2024 9:32 PM EDT5 tfUqdhf9912/25/2024 3:45 PM EDT5 mg oxytocin (PITOCIN) bolus from bag solution 10 Units 10 Units, intravenous, Administer over 30 Minutes, Once as needed, post-delivery hemostasis, Starting on Stephani 12/24/24 at 2013, For 1 dose, , Administer via programmable pump with lactated ringers solution oxytocin (PITOCIN) infusion 30 units/500 mL in lactated ringers (0.06 units/mL premix) 42 marciano-units/min (42 mL/hr), intravenous, Continuous PRN, for post-delivery hemostasis, Starting on Stephani 12/24/24 at 2013, , Administer for 4 hours. Administer via programmable pump with lactated ringers solution 1 mL/hour = 1 marciano-unit/min Rate/Dose Zowkcz4612/25/2024 2:29 AM EDT42 marciano-units/min42 mL/hrNew Bag 12/24/2024 11:03 PM EDT42 marciano-units/min42 mL/hr oxytocin (PITOCIN) injection 10 Units 10 Units, intramuscular, Once as needed, hemorrhage treatment, Starting on Stephani 12/24/24 at 2013, For 1 dose, , administer as directed by provider for Hemorrhage management oxytocin (PITOCIN) injection 10 Units 10 Units, intramuscular, Once as needed, hemorrhage treatment, Starting on Stephani 12/24/24 at 2242, For 1 dose, , administer as directed by provider for Hemorrhage management PNV,calcium 11-zfad-hehfo acid ( PLUS) 27 mg iron- 1 mg tablet 1 tablet 1 tablet, oral, Daily, First dose on Sat12/25/24 at 0900, Given12/27/2024 9:17 AM EST1 fkselvAqjfe87/01/2025 9:17 AM EDT1 tabletGiven 12/25/2024 9:02 AM EDT1 tablet polyethylene glycol (GLYCOLAX) packet 17 g 17 g, oral, Daily, First dose on Sat12/25/24 at 0900, , Look-alike/sound-alike medication - verify indication for use. Dissolve 1 packet (17 gm) in 8 ounces of water, juice, soda, coffee or tea. Given12/27/2024 9:17 AM EST17 rNsnwd1612/26/2024 9:17 AM EDT17 rRvgca8912/25/2024 9:02 AM EDT17 g simethicone (MYLICON) chewable tablet 80 mg 80 mg, oral, 4 times daily before meals and at bedtime as needed, flatulence, abdominal discomfort caused by gas and distension, Starting on Stephani 12/24/24 at 2242, , Maximum dose 500 mg daily sodium chloride 0.9 % flush 3 mL 3 mL, intravenous, As needed, line care, before and after each intermittent use, Starting on Sat12/23/24 at 1734, Given12/26/2024 12:15 PM EDT3 nICpmgx9912/25/2024 7:49 PM EDT3 kXXkrwn8212/25/2024 7:40 AM EDT3 mL sodium chloride 0.9 % flush 3 mL 3 mL, intravenous, Every 12 hours scheduled, First dose on Sat12/23/24 at 2100, Given12/26/2024 8:19 PM EDT3 eNRmwgo6312/26/2024 9:17 AM EDT3 lFSjkqm5012/25/2024 9:11 PM EDT3 mL sodium citrate-citric acid (BICITRA) 500-334 mg/5 mL solution 30 mL 30 mL, oral, Once, On [place] 12/24/24 at 2015, For 1 dose, L&D Pre-Delivery, Within one hour priorto transfer to surgical suite Look-alike/sound-alike medication - verify indication for use. Given12/24/2024 8:40 PM EDT30 mL tranexamic acid (CYKLOKAPRON) injection 1,000 mg 1,000 mg, intravenous, Administer over 10 Minutes, Every 30 min PRN, hemostasis/ post- hemorrhage, Starting on Sat12/23/24 at 1733, For 2 doses, , As directed by provider for hemostasis/ hemorrhage management. Give slow IV push over 10 minutes, may repeat one time in 30 minutes after initial dose tranexamic acid (CYKLOKAPRON) injection 1,000 mg 1,000 mg, intravenous, Administer over 10 Minutes, Every 30 min PRN, hemostasis/ post- hemorrhage, Starting on Stephani 12/24/24 at 2013, For 2 doses, , As directed by provider for hemostasis/ hemorrhage management. Give slow IV push over 10 minutes, may repeat one time in 30 minutes after initial dose tranexamic acid (CYKLOKAPRON) injection 1,000 mg 1,000 mg, intravenous, Administer over 10 Minutes, Every 30 min PRN, hemostasis/ post- hemorrhage, Starting on Stephani 12/24/24 at 2242, For 2 doses, , As directed by provider for hemostasis/ hemorrhage management. Give slow IV push over 10 minutes, may repeat one time in 30 minutes after initial dose varicella virus vaccine live (VARIVAX) injection 0.5 mL 0.5 mL, subcutaneous, During hospitalization, immunization, if no evidence of immunity (less than 0.9 is considered negative), Starting on Stephani 12/24/24 at 2242, For 1 dose, , Before discharge. Obtain Varicella Antibody Screen if titer unavailable or unknown. Look-alike/sound-alike medication - verify indication for use. documented in this encounter Active and Recently Administered Medications Due to Daylight Saving Time, this section may contain times in both EDT and EST. Medication Order//03/2024 acetaminophen (TYLENOL EXTRA STRENGTH) tablet 1,000 mg 1,000 mg, oral, Every 8 hours, First dose on Sat12/25/24 at 0100, , Alternate administration every 4 hours with ketorolac or ibuprofen * 0107 (Given - Provider: Miriam Alexandre RN) * 0902 (Given - Provider: Mini Munoz RN) * 1724 (Given - Provider: Mini Munoz RN - Comment: [facility] [place]) * 0158 (Given - Provider: Ambar Armstrong, FRANCESCA) * 0917 (Given - Provider: Sabrina Lomeli, FRANCESCA) * 1726 (Given - Provider: Sabrina Lomeli, FRANCESCA) * 0115 (Given - Provider: Ambar Armstrong, FRANCESCA) * 0917 (Given - Provider: Sabrina Lomeli, FRANCESCA) clindamycin (CLEOCIN) IVPB 600 mg/50 mL in dextrose 5% (12 mg/mL premix) (CANCELED) 600 mg, intravenous, at 100 mL/hr, Administer over 30 Minutes, Every 8 hours, First dose on Sat12/23/24 at 1945, L&D Pre-Delivery, Indication: Other, Specify: ureaplasma urealyticum * 0351 (New Bag - Provider: Miriam Alexandre, RN) * 0352 (Paused - Provider: Miriam Alexandre, RN) * 0352 (Paused - Provider: Miriam Alexandre, RN) * 0355 (Paused - Provider: Miriam Alexandre, RN) * 0355 (Restarted - Provider: Miriam Alexandre, RN) * 0420 (Rate/Dose Verify - Provider: Miriam Alexandre, RN) * 0421 (Stop Bag - Provider: Miriam Alexandre, RN) clindamycin (CLEOCIN) IVPB 600 mg/50 mL in dextrose 5% (12 mg/mL premix) (COMPLETED) 600 mg, intravenous, at 100 mL/hr, Administer over 30 Minutes, Every 8 hours, First dose on Sat12/25/24 at 1200, For 2 days, NEXT DOSE TO START AT 1200, Indication: Gynecologic infection * 1152 (New Bag - Provider: Mini Munoz RN) * 1217 (Stop Bag - Provider: Mini Munoz RN) * 194 (New Bag - Provider: Sofía Wilkinson, FRANCESCA) * 2018 (Stop Bag - Provider: Ambar Armstrong, FRANCESCA) * 0410 (New Bag - Provider: Ambar Armstrong, RN) * 0440 (Stop Bag - Provider: Ambar Armstrong, RN) * 1217 (New Bag - Provider: Sabrina Lomeli, RN) * 1242 (Stop Bag - Provider: Sabrina Lomeli, RN) * 2019 (New Bag - Provider: Ambar Armstrong, RN) * 204 (Stop Bag - Provider: Ambar Armstrong, RN) * 0438 (New Bag - Provider: Ambar Armstrong, RN) * 0508 (Stop Bag - Provider: Ambar Armstrong, RN) docusate sodium (COLACE) capsule 100 mg 100 mg, oral, 2 times daily, First dose on Sat12/24/24 at 2245, , Look-alike/sound-alikemedication - verify indication for use. * 0902 (Given - Provider: Mini Munoz RN) * 2111 (Given - Provider: Ambar Armstrong RN) * 0917 (Given - Provider: Sabrina Lomeli, RN) * 204 (Given - Provider: Ambar Armstrong RN) * 0917 (Given - Provider: Sabrina Lomeli, FRANCESCA) doxycycline (VIBRAMYCIN) capsule 100 mg 100 mg, oral, 2 times daily, First dose on Sat12/27/24 at 0900, For 7 days, May give with meals to decrease GI upset. Administer with at least 8 ounces of water and have patient sit up for at least 30 minutes after taking to reduce the risk of esophageal irritation and ulceration., Indication: UTI * 0917 (Given - Provider: Sabrina Lomeli, RN) ibuprofen (MOTRIN) tablet 800 mg(Linked Group 1) 800 mg, oral, Every 8 hours, First dose on Sat12/26/24 at 0500, , Alternate administration every 4 hours with acetaminophen Look-alike/sound-alike medication - verify indication for use. Take/Give with food or milk. * 0529 (Given - Provider: Ambar Armstrong RN) * 1246 (Given - Provider: Sabrina Lomeli RN) * 2048 (Given - Provider: Ambar Armstrong RN) * 0507 (Given - Provider: Ambar Armstrong, FRANCESCA) ketorolac (TORADOL) injection 30 mg (COMPLETED)(Linked Group 1) 30 mg, intravenous, Every 8 hours, First dose on Sat12/25/24 at 0500, For 24 hours, , Alternate administration every 4 hours with acetaminophen Look-alike/sound-alike medication - verify indication for use. Duration of therapy is not to exceed 5 days. Maximum recommended dose + 120mg/24 hours. * 0528 (Given - Provider: Miriam Alexandre RN) * 1220 (Given - Provider: Mini Munoz, RN) * 2111 (Given - Provider: Ambar Armstrong, FRANCESCA) PNV,calcium 69-ejro-spclw acid ( PLUS) 27 mg iron- 1 mg tablet 1 tablet 1 tablet, oral, Daily, First dose on Sat12/25/24 at 0900, * 0902 (Given - Provider: Mini Munoz RN) * 0917 (Given - Provider: aSbrina Lomeli RN) * 0917 (Given - Provider: Sabrina Lomeli, FRANCESCA) polyethylene glycol (GLYCOLAX) packet 17 g 17 g, oral, Daily, First dose on Sat12/25/24 at 0900, , Look-alike/sound-alike medication - verify indication for use. Dissolve 1 packet (17 gm) in 8 ounces of water, juice, soda, coffee or tea. * 0902 (Given - Provider: Mini uMnoz RN) * 0917 (Given - Provider: Sabrina Lomeli, RN) * 0917 (Given - Provider: Sabrina Lomeli, RN) sodium chloride 0.9 % flush 3 mL 3 mL, intravenous, Every 12 hours scheduled, First dose on Sat12/23/24 at 2100, * 0900 (Not Given - Provider: Mini Munoz RN - Reason: Contraindicated - Comment: FLUSHED WHEN SALINE LOCKED) * 2110 (Given - Provider: Ambar Armstrong, FRANCESCA) * 09 (Given - Provider: Sabrina Lomeli, RN) * 2018 (Given - Provider: Ambar Armstrong, FRANCESCA) * 0900 (Due) Medication Order511//20240226/03/2024 lactated ringers infusion (CANCELED) 125 mL/hr, intravenous, Continuous, Starting on Steph[place] 12/24/24 at 2014, For 1 day, , Start after 4 hour oxytocin (PITOCIN) infusion and lactated ringers infusion is completed. * 0308 (Rate/Dose Change - Provider: Miriam Alexandre RN) * 0350 (Stop Bag - Provider: Miriam Alexandre RN) * 0351 (Stop Bag - Provider: Miriam Alexandre, RN) * 0430 (Paused - Provider: Miriam Alexandre, RN) * 0431 (Restarted - Provider: Miriam Alexandre, RN) * 0433 (Paused - Provider: Miriam Alexandre, RN) * 0740 (Stop Bag - Provider: Miin Munoz RN - Comment: [Order ends at this time. Document the following action when infusion is complete: Stop Bag]) lactated ringers infusion (CANCELED)(Linked Group 2) 125 mL/hr, intravenous, Continuous, Starting on Stephani 12/24/24 at 2014, For 1 day, L&D Pre-Delivery * 0433 (New Bag - Provider: Miriam Alexandre, FRANCESCA) * 0433 (Rate/Dose Verify - Provider: Mini Munoz, RN) * 0740 (Stop Bag - Provider: Mini Munoz, RN) Medication Order//03/2024 bisacodyL (DULCOLAX) suppository 10 mg 10 mg, rectal, Once as needed, constipation, no relief from docusate or senna/docusate, Starting onFri 12/25/24 at 0000, For 1 dose, , Start 2nd day Look-alike/sound-alike medication - verify indication for use. carboprost (HEMABATE) injection 250 mcg 250 mcg, intramuscular, Once as needed, hemorrhage management, Starting on Stephani 12/24/24 at 2013, For 1 dose, , Administer as directed by provider for Hemorrhage management. DO NOT ADMINISTER IV. Contraindicated if patient has a history of asthma or cardiovascular disease carboprost (HEMABATE) injection 250 mcg 250 mcg, intramuscular, Once as needed, hemorrhage management, Starting on Stephani 12/24/24 at 2242, For 1 dose, , Administer as directed by provider for Hemorrhage management. DO NOT ADMINISTER IV. Contraindicated if patient has a history of asthma or cardiovascular disease diphth,pertus(acell),tetanus (BOOSTRIX) injection 0.5 mL 0.5 mL, intramuscular, During hospitalization, immunization, Starting on Stephani 12/24/24 at 2242, For 1 dose, , Give before discharge, if patient not vaccinated during this For use in children, adolescents, and adults 7 years of age and older. hydrocortisone (ANUSOL-HC) 2.5 % rectal cream 1 Application 1 Application, rectal, As needed, hemorrhoids, Starting on Stephani 12/24/24 at 2242, , May keep at bedside, Indications: hemorrhoids lactated ringers infusion ()(Linked Group 3) 83 mL/hr, intravenous, Continuous PRN, post-delivery hemostasis, Starting on Stephani 12/24/24 at 2013, For 1 day, , Administer for 4 hours. Administer with Oxytocin bolus and infusion * 0229 (Rate/Dose Verify - Provider: Miriam Alexandre RN) * 0307 (Stop Bag - Provider: Miriam Alexandre RN) measles, mumps and rubella vaccine (M-M-R II) injection 0.5 mL 0.5 mL, subcutaneous, During hospitalization, immunization, If Rubella titer Not Immune or Equivocal before discharge, Starting on Stephani 12/24/24 at 2242, For 1 dose, , Refer to Sherley for administration instructions., Indications: jarqtsk-eomyp-eusrcye vaccination methylergonovine (METHERGINE) injection 200 mcg 200 mcg, intramuscular, Once as needed, hemorrhage treatment, Starting on Stephani 12/24/24 at 2012, For 1 dose, , For hemorrhage treatment, administer as directed by provider for Hemorrhage management. DO NOT ADMINISTER IV. Contraindicated if patient has a hypersensitivity of Systolic BP greater than 140 or Diastolic BP greater than 90. Look-alike/sound-alike medication - verify indication for use. methylergonovine (METHERGINE) injection 200 mcg 200 mcg, intramuscular, Once as needed, hemorrhage treatment, Starting on Stephani 12/24/24 at 2242, For 1 dose, , For hemorrhage treatment, administer as directed by provider for Hemorrhage management. DO NOT ADMINISTER IV. Contraindicated if patient has a hypersensitivity of Systolic BP greater than 140 or Diastolic BP greater than 90. Look-alike/sound-alike medication - verify indication for use. miSOPROStoL (CYTOTEC) tablet 800 mcg 800 mcg, sublingual, Once as needed, hemorrhage treatment, Starting on Stephani 12/24/24 at 2012, For 1 dose, , Administer as directed by provider for Hemorrhage management. Use only if Hypertensive and Asthmatic. Look-alike/sound-alike medication - verify indication for use. miSOPROStoL (CYTOTEC) tablet 800 mcg 800 mcg, sublingual, Once as needed, hemorrhage treatment, Starting on Stephani 12/24/24 at 2242, For 1 dose, , Administer as directed by provider for Hemorrhage management. Use only if Hypertensive and Asthmatic. Look-alike/sound-alike medication - verify indication for use. modified lanolin (LANSINOH) 100 % cream cream 1 Application 1 Application, topical, As needed, sore/cracked nipples, Starting on Stephani 12/24/24 at 2242, , May keep at bedside naloxone (NARCAN) injection 0.1 mg 0.1 mg, intravenous, As needed, opioid reversal, patient unarousable OR respirations remain less than 8/minute OR SpO2 remains less than 90%, Starting on Stephani 12/24/24 at 2220, , Administer over 15 seconds every 2 minutes as needed for a maximum of 0.4 mg (4 doses total). Look-alike/sound-alike medication - verify indication for use. ondansetron (PF) (ZOFRAN) injection 4 mg 4 mg, intravenous, Every 4 hours PRN, nausea, vomiting, Starting on Sat12/25/24 at 0011, Intravenous administration preferred to be given over 2-5 minutes. * 0039 (Given - Provider: Miriam Alexandre RN) oxyCODONE (ROXICODONE) immediate release tablet 10 mg 10 mg, oral, Every 4 hours PRN, severe pain - pain scale 7-10, breakthrough pain, Starting on Stephani 12/24/24 at 2242, , Look-alike/sound-alike medication - verify indication for use. Immediate release. * 0751 (Given - Provider: Mini Munoz RN) * 1148 (Given - Provider: Mini Munoz RN) * 0226 (Given - Provider: Ambar Armstrong, FRANCESCA) * 0746 (Given - Provider: Sabrina Lomeli, FRANCESCA) * 1157 (Given - Provider: Sabrina Lomeli, FRANCESCA) * 1725 (Given - Provider: Sabrina Lomeli, RN) * 2321 (Given - Provider: Ambar Armstrong, FRANCESCA) * 0246 (Given - Provider: Ambar Arsmtrong, FRANCESCA) oxyCODONE (ROXICODONE) immediate release tablet 5 mg 5 mg, oral, Every 4 hours PRN, moderate pain - pain scale 4-6, breakthrough pain, Starting on Stephani 12/24/24 at 2242, , Look-alike/sound-alike medication - verify indication for use. Immediate release. * 0040 (Given - Provider: Miriam Alexandre RN) * 1141 (Not Given - Provider: Mini Munoz RN - Reason: Contraindicated) * 1545 (Given - Provider: Mini Munoz RN) * 2132 (Given - Provider: Sofía Wilkinson RN) * 0932 (Given - Provider: Sabrina Lomeli, FRANCESCA) oxytocin (PITOCIN) bolus from bag solution 10 Units 10 Units, intravenous, Administer over 30 Minutes, Once as needed, post-delivery hemostasis, Starting on Stephani 12/24/24 at 2012, For 1 dose, , Administer via programmable pump with lactated ringers solution oxytocin (PITOCIN) infusion 30 units/500 mL in lactated ringers (0.06 units/mL premix)(Linked Group 3) 42 marciano-units/min (42 mL/hr), intravenous, Continuous PRN, for post-delivery hemostasis, Starting on Stephani 12/24/24 at 2012, , Administer for 4 hours. Administer via programmable pump with lactated ringers solution 1 mL/hour = 1 marciano-unit/min * 0229 (Rate/Dose Verify - Provider: Miriam Alexandre RN) * 0306 (Stop Bag - Provider: Miriam Alexandre RN) * 0307 (Stop Bag - Provider: Miriam Alexandre RN) oxytocin (PITOCIN) injection 10 Units 10 Units, intramuscular, Once as needed, hemorrhage treatment, Starting on Sat12/24/24 at 2012, For 1 dose, , administer as directed by provider for Hemorrhage management oxytocin (PITOCIN) injection 10 Units 10 Units, intramuscular, Once as needed, hemorrhage treatment, Starting on Stephani 12/24/24 at 2, For 1 dose, , administer as directed by provider for Hemorrhage management simethicone (MYLICON) chewable tablet 80 mg 80 mg, oral, 4 times daily before meals and at bedtime as needed, flatulence, abdominal discomfort caused by gas and distension, Starting on Sat12/24/24 at 2242, , Maximum dose 500 mg daily sodium chloride 0.9 % flush 3 mL 3 mL, intravenous, As needed, line care, before and after each intermittent use, Starting on Sat12/23/24 at 1734, * 0740 (Given - Provider: Mini Munoz RN) * 1949 (Given - Provider: Sofía Wilkinson, FRANCESCA) * 1215 (Given - Provider: Sabrina Lomeli, FRANCESCA) tranexamic acid (CYKLOKAPRON) injection 1,000 mg 1,000 mg, intravenous, Administer over 10 Minutes, Every 30 min PRN, hemostasis/ post- hemorrhage, Starting on 12/23/24 at 1733, For 2 doses, , As directed by provider for hemostasis/ hemorrhage management. Give slow IV push over 10 minutes, may repeat one time in 30 minutes after initial dose tranexamic acid (CYKLOKAPRON) injection 1,000 mg 1,000 mg, intravenous, Administer over 10 Minutes, Every 30 min PRN, hemostasis/ post- hemorrhage, Starting on Stephani 12/24/24 at 2013, For 2 doses, , As directed by provider for hemostasis/ hemorrhage management. Give slow IV push over 10 minutes, may repeat one time in 30 minutes after initial dose tranexamic acid (CYKLOKAPRON) injection 1,000 mg 1,000 mg, intravenous, Administer over 10 Minutes, Every 30 min PRN, hemostasis/ post- hemorrhage, Starting on Stephani 12/24/24 at 2242, For 2 doses, , As directed by provider for hemostasis/ hemorrhage management. Give slow IV push over 10 minutes, may repeat one time in 30 minutes after initial dose varicella virus vaccine live (VARIVAX) injection 0.5 mL 0.5 mL, subcutaneous, During hospitalization, immunization, if no evidence of immunity (less than 0.9 is considered negative), Starting on Stephani 12/24/24 at 2242, For 1 dose, , Before discharge. Obtain Varicella Antibody Screen if titer unavailable or unknown. Look-alike/sound-alike medication - verify indication for use. Order Group 1: ketorolac (TORADOL) injection 30 mg (COMPLETED)Jump to med 30 mg, intravenous, Every 8 hours, First dose on Sat12/25/24 at 0500, For 24 hours, , Alternate administration every 4 hours with acetaminophen Look-alike/sound-alike medication - verify indication for use. Duration of therapy is not to exceed 5 days. Maximum recommended dose + 120mg/24 hours. Followed by ibuprofen (MOTRIN) tablet 800 mgJump to med 800 mg, oral, Every 8 hours, First dose on Sat12/26/24 at 0500, , Alternate administration every 4 hours with acetaminophen Look-alike/sound-alike medication - verify indication for use. Take/Give with food or milk. Group 2: lactated ringers bolus (COMPLETED) 1,000 mL, intravenous, at 984 mL/hr, Administer over 61 Minutes, Once, On Stephani 12/24/24 at 2014, For1 dose, L&D Pre-Delivery, On fluid-restricted patients, such as pre-eclampsia, consult physician regarding IV rate Followed by lactated ringers infusion (CANCELED)Jump to med 125 mL/hr, intravenous, Continuous, Starting on Stephani 12/24/24 at 2014, For 1 day, L&D Pre-Delivery Group 3: oxytocin (PITOCIN) infusion 30 units/500 mL in lactated ringers (0.06 units/mL premix)Jump to med 42 marciano-units/min (42 mL/hr), intravenous, Continuous PRN, for post-delivery hemostasis, Starting on Stephani 12/24/24 at 2012, , Administer for 4 hours. Administer via programmable pump with lactated ringers solution 1 mL/hour = 1 marciano-unit/min And lactated ringers infusion ()Jump to med 83 mL/hr, intravenous, Continuous PRN, post-delivery hemostasis, Starting on Stephani 12/24/24 at 2012, For 1 day, , Administer for 4 hours. Administer with Oxytocin bolus and infusion documented in this encounter Additional Health Concerns AssessmentNoted TimeA Body Mass Index follow-up plan has been documented for the ysfusmv4809/08/2024 11:31 AM EDTdocumented as of this encounter Care Teams Team MemberRelationshipSpecialtyStart DateEnd Date Carloz Nelson MD [address] [phone] PCP - GeneralInternal Zhqknqoh13/30/24documented as of this encounter
--- OUTSIDE RECORDS SUMMARY | 2024-12-24 20:06 | XMS_ITS | Encounter Summary ---
Author Organization [facility] [employer] [facility] tem Address [id number] [place] [address] Care Team Providers Care Spray Machine Operator Name Role Phone Carloz Nelson MD Primary Care Provider Reason for Visit * Auth/CertSpecialtyDiagnoses / ProceduresReferred By ContactReferred To Contact Joanie Sommer, [facility] [address] [facility] [place] [address] Phone: tel: fax: Referral IDStatusReasonStart DateExpiration DateVisits RequestedVisits [id number] Encounter Details DateTypeDepartmentCare Team (Latest Contact Info)Cmbsiknvsmc37/30/2025 9:06 PM EDTAnesthesia Event [facility] [address] [place] [id number] David Guadalupe, DO [address] [place] [address] Ryan Carrillo [facility] [address] [place] [address] Anesthesia Record Procedure NameResponsible AnesthesiologistAnesthesia Start TimeAnesthesia Stop TimeC-SECTION (Abdomen)David Guadalupe DO12/24/24 [id number] 2215DateTime JeyyzMepynpd10/30/848996864924Jc Nqvnv2280Ar Start Zlvz4357Gvfpvyia0308Izzldjy Ready for Yupsjes2525Qdku Aljvppmeo9431Gj Data ArtPt shivering and bp arm bent 2149Quick NoteMom doing skin to bdpb0746uw stop xqof1120Bmfkqhbuy/Transfer From the HR3020Dckdutb to RNTransported to:OB Suite, Spontaneous Ventilation, O2 per Room Air, 0 LPM Pt. Tolerated procedure well, vital signs stable and document on nursing record Care transferred to receiving KE8414Qn Stop* NameTotal dexAMETHasone (DECADRON) injection 4 mg/mL8 mgketorolac (TORADOL) injection 30 mg15 mgondansetron PF (ZOFRAN) 2 mg/mL injection4 mgePHEDrine bwdibtiuf19 mg phenylephrine (ELLA-SYNEPHRINE) injection 100 mcg/mL500 mcgceFAZolin (ANCEF) IVPB 2000 mg/50 mL in iso-osmotic dextrose (40 mg/mL premix)2,000 mgmorphine PF (DURAMORPH) injection 1 mg/mL0.15 owwboffprczmr-qbxvrqhb-mxlzz(PF) (MARCAINE SPINAL) 0.75 % (7.5 mg/mL) injection1.8 mLoxytocin (PITOCIN) infusion 30 unit/500 mL LR350 mLlactated ringers qrpliyia114 mL * Agents No agents on file. * Blood No blood administrations on file. EfpjSeexkedAdljajykuPtezdluAjjth38/30/25; 2214; Incision; Abdomen; Bilateral; Steri-Strips, Telfa, ABD, Vqqwixex10/30/252214 by Ned Hayes [facility]ITALeripheral IVPlacement Date: 12/23/24; Placement Time: 1819; Catheter Size: 18 G; Orientation: Distal, Posterior, Right; Location: Wrist; Site Prep: Chlorhexadine and isopropyl alcohol; Technique: Anatomical landmarks; Inserted by: Madhavi Vidales RN; Insertion Attempts: 1; Patient Tolerance: Tolerated well; RemovalDate: 12/27/24; Removal Time: 0735; Removal Reason: Per patient/family dmmviov17/29/25 1820 by Gloria Vidales RN12/27/24 0735 by Sabrina Lomeli RNUrethral Catheter Placement Date: 12/24/24; Placement Time: 5; Inserted by: Ned MA; Type: Single lumen; Size: 16 Fr.; Balloon Size: 10 mL; Urine Returned: Yes; Removal Date: 12/25/24; Removal Time: 774971/30/25 2115 by Ned Hayes RN12/25/24729 by Mini Munoz RNdocumented in this encounter Social History Tobacco UseTypesPacks/DayYears UsedDateSmoking Tobacco: NeverPassive Smoke Exposure: NeverSmokeless Tobacco: NeverAlcohol UseStandard Drinks/WeekComments Not Currently0 (1 standard drink = 0.6 oz pure alcohol)Overall Financial Resource Strain (CARDIA)AnswerDate RecordedHow hard is it for you to pay for the very basics like food, housing, medical care, and heating?Patient declined 5AUDIT-CAnswerDate RecordedQ1: How often do you have a [...] a part of a household?No12/23/2024hildcareAnswerDate RecordedChildcareUnknown 08/05/2018EmploymentAnswerDate FbnkibhaRuxcdclgzjEmirwdw57/11/2019Hunger ScreeningAnswerDate RecordedWithin the past 12 months we worried whether our food would run out before we got money to buy more.Never True12/23/2024Within the past 12 months the food we bought just didn't last and we didn't have money to get more.Never True12/23/2024CommentsYesSex and Gender Information ValueDate RecordedSex Assigned at MmsnbOvrwzy84/09/2025 6:08 PM EDTLegal Sex Hkspym8709/28/2014 8:25 PM EDTGender AoijxwydBbrnwo31/09/2025 6:07 PM EDTSexual OrientationChoose not to vpaldfkg61/09/2025 6:07 PM EDTdocumented as of this encounter OR Notes * Anesthesia Postprocedure Evaluation - David Guadalupe DO - 12/25/2024 7:31 AM EDT ANESTHESIA POST-EVALUATION [facility] Procedure Summary Date: 12/24/24 Room / Location: [facility] OR [address] [place] [address] OR Anesthesia Start: 2105 Anesthesia Stop: 2214 Procedure: (Abdomen) Diagnosis: ( Intolerance of Labor) (Other (Add Comments)) Surgeons: Antwon Segura DO Responsible Provider: David Guadalupe DO Anesthesia Type: spinal ASA Status: 2 - Emergent Vitals: 12/25/24 0529 BP: 113/59 Pulse: 64 Resp: 16 Temp: Patient Evaluated: Phase II Patient Participation: Complete - patient participated Patient Level of Consciousness: Awake and Alert Pain Score: 2 Pain Management: Adequate Airway Patency: Patent Anesthetic Complications: No Cardiovascular Status: Hemodynamically Stable Respiratory Status: Stable/Baseline Post-op Hydration: Euvolemic Final Anesthesia Type: MAC and spinal No notable events documented. * Anesthesia Procedure Notes - SOWMYA Herrera - 12/24/2024 9:27 PM EDT Associated Order(s): Spinal Block Spinal Block Patient Location: Pre-op Start Time: 12/24/2024 9:12 PM End Time: 12/24/2024 9:13 PM Reason for Block: Primary Anesthetic IV In situ: Peripheral General Information and Staff: Service Provider: SOWMYA Herrera Placed by: SOWMYA Herrera Checklist: Patient Identified, IV Checked, Site Marked, Risks and Benefits Discussed, Surgical Consent, Monitors and Equipment Checked, Pre-op Evaluation and Timeout Performed Fire Risk Assessment Score: 0 Patient Positioning and Technique: Patient Position: Sitting Prep: Betadine Monitoring: Heart Rate, Continuous Pulse Ox and Blood Pressure Oxygen Source: Nasal Cannula Approach: Midline Location: L2-L3 Injection Technique: Single-Shot Placement Technique: Gould Technique Dose: 3 mL Needle: Needle Type: Pencan/Atraucan Needle Gauge: 24 G Anesthesia Block Medication Given: kwvnxkencpc-jjfperdq-bmmff(PF) (MARCAINE SPINAL) 0.75 % (7.5 mg/mL) injection - intrathecal 1.8 mL - 12/24/2024 9:13:00 PM morphine PF (DURAMORPH) injection 1 mg/mL - intrathecal 0.15 mg - 12/24/2024 9:12:00 PM Number of Attempts: 1 CSF Comment: Clear Free-Flowing CSF Assessment: Sensory Level: T6 Injection Assessment: No Paresthesia on Injection and No Pain on Injection * Anesthesia Preprocedure Evaluation - David Guadalupe DO - 12/24/2024 9:00 PM EDT Images from the original note were not included. ANESTHESIA PRE-PROCEDURE EVALUATION [facility] Procedure(s): ANESTHESIA PHYSICAL EXAM Patient summary reviewed and nursing notes reviewed. Airway Mallampati: II TM distance: >3 FB Neck ROM: Full Patient is not intubated Patient does not have tracheostomy Mouth Opening:>= 4 cm Dental : exam normal Pulmonary : exam normal Cardiovascular : exam normal Neuro : exam normal Peds/medical support assistant Abdominal : exam normal Other Findings Eyes ANESTHESIA PLAN ASA 2 - Emergent Anesthesia Type: spinal Induction: Intravenous Airway Management: Nasal Cannula/NRB Post op Pain Management: IV Analgesics and Intrathecal Narcotics PONV Plan: Intended use of opioids Post-op Transfer Plan: Transfer to Phase II Anesthetic risks, plan and alternatives discussed with Patient. Use of blood products discussed with Patient who consented to blood products. Plan discussed with BULK SAUSAGE CASING TIER OFF. NPO Status: Past Medical History: Diagnosis Date Adult ADHD Anxiety Eczema Past Surgical History: Procedure Laterality Date APPENDECTOMY 2023 Allergies Allergen Reactions Zithromax [Azithromycin] Itching and Rash Social History Tobacco Use Smoking Status Never Passive exposure: Never Smokeless Tobacco Never Alcohol Use: Not At Risk (12/11/2024) AUDIT-C Frequency of Alcohol Consumption: Never Average Number of Drinks: Patient does not drink Frequency of Binge Drinking: Never OB History:OB@ Estimated Date of Delivery:BELKIS[1@ Scheduled Meds: ceFAZolin (ANCEF) IV, 2,000 mg, intravenous, Once ceFAZolin in dextrose (iso-os), , , clindamycin (CLEOCIN) IV, 600 mg, intravenous, Q8H dinoprostone, 10 mg, vaginal, Once lactated ringers, 1,000 mL, intravenous, Once FOLLOWED BY lactated ringer's, 125 mL/hr, intravenous, Continuous sodium chloride, 3 mL, intravenous, Q12H NATALIE sodium citrate-citric acid, , , Infusion Meds: lactated ringer's, 999 mL/hr lactated ringer's, 125 mL/hr, Last Rate: 125 mL/hr (12/24/24 1859) lactated ringer's, 250 mL/hr oxytocin, 42 marciano-units/min AND lactated ringer's, 83 mL/hr lactated ringer's, 125 mL/hr lactated ringer's, 999 mL/hr lactated ringers, 1,000 mL, Last Rate: 1,000 mL (12/24/242018) FOLLOWED BY lactated ringer's, 125 mL/hr oxytocin, 42 marciano-units/min AND [] lactated ringer's, 83 mL/hr oxytocin in lactated ringers, PRN Meds: acetaminophen carboprost carboprost ceFAZolin in dextrose (iso-os) lactated ringers lactated ringers lactated ringer's lactated ringer's oxytocin AND lactated ringer's lactated ringer's lidocaine PF methylergonovine methylergonovine miSOPROStoL miSOPROStoL ondansetron oxytocin oxytocin oxytocin AND [] lactated ringer's oxytocin oxytocin oxytocin in lactated ringers sodium chloride sodium citrate-citric acid tranexamic acid tranexamic acid Vitals: BP 118/56 Pulse 83 Temp 36.7 ??C (98.1 ??F) (Oral) Resp 16 LMP (LMP Unknown) Vent: Labs: Results from last 7 days Lab Units 12/23/24 1752 WBC x10E9/L 8.6 HEMOGLOBIN g/dL 13.4 HEMATOCRIT % 39.9 PLATELETS X10E9/L 208 Echo: No results found. Cath: No results found. EKG: No results found. Stress: No results found. Holter: No results found. CXR: No results found. Carotid: No results found. Risk Factors: PONV: High Risk Total Score: 3 Score Rules Female patient Non-smoker Intended opioid administration Criteria that do not apply: History of PONV and/or Motion Sickness RCRI: Low Risk: Score of 0 = 3.9% (2.8-5.4%) Risk of major cardiac event Score of 1 = 6.0% (4.9-7.4%) Risk of major cardiac event Total Score: 0 Score Rules Criteria that do not apply: Cerebrovascular Disease Ischemic Heart Disease Congestive Heart Failure Elevated Risk Surgery Pre-operative Treatment with Insulin Pre-operative Creatinine >2 mg/dL / 176.8 mol/L documented in this encounter Plan of Treatment DateTypeDepartmentCare Team (Latest Contact Info)Lahnfgvhued16/22/2025 9:00 AM ESTOffice Visit [facility] [address] [place] [address] Nigel Kincaid MD [address] [place] [address] 03/01/2025 10:00 AM ESTOffice Visit [facility] [address] [place] [address] Alice Michel MD [address] [place] [address] documented as of this encounter Procedures Procedure NamePriorityDate/TimeAssociated DiagnosisCommentsANESTHESIA SPINAL ZBONJLfsidgm95/30/2025 9:27 PM EDT documented in this encounter Results * Spinal Block (12/24/2024 9:27 PM EDT) Narrative Ryan Carrillo APRN-BULK SAUSAGE CASING TIER OFF - 12/24/2024 9:27 PM EDT Ryan Carrillo APRN-BULK SAUSAGE CASING TIER OFF 12/24/2024 9:27 PM Spinal Block Patient Location: ??Pre-op Start Time: ??12/24/2024 9:12 PM End Time: ??12/24/2024 9:13 PM Reason for Block: Primary Anesthetic ?? IV In situ: ??Peripheral General Information and Staff: Service Provider: ??SOWMYA Herrera Placed by: SOWMYA Herrera Checklist: Patient Identified, IV Checked, Site Marked, Risks and Benefits Discussed, Surgical Consent, Monitors and Equipment Checked, Pre-op Evaluation and Timeout Performed Fire Risk Assessment Score: 0 Patient Positioning and Technique: Patient Position: ??Sitting Prep: Betadine ?? Monitoring: ??Heart Rate, Continuous Pulse Ox and Blood Pressure Oxygen Source: ??Nasal Cannula Approach: ??Midline Location: ??L2-L3 Injection Technique: ??Single-Shot Placement Technique: Gould Technique ?? Dose: ??3 mL Needle: Needle Type: ??Pencan/Atraucan Needle Gauge: ??24 G Anesthesia Block Medication Given: shbqgfihsnb-rrqbgzky-qchlt(PF) (MARCAINE SPINAL) 0.75 % (7.5 mg/mL) injection - intrathecal 1.8 mL - 12/24/2024 9:13:00 PM morphine PF (DURAMORPH) injection 1 mg/mL - intrathecal 0.15 mg - 12/24/2024 9:12:00 PM Number of Attempts: ??1 CSF Comment: ??Clear Free-Flowing CSF Assessment: Sensory Level: ??T6 Injection Assessment: ??No Paresthesia on Injection and No Pain on Injection Authorizing ProviderResult TypeResult StatusVern D Guadalupe DOANESTHESIA ORDERABLESFinal Result documented in this encounter Visit Diagnoses Not on filedocumented in this encounter Administered Medications Medication OrderMAR ActionAction DateDoseRateSite LQZcbcwdejm-ojleqyqe-yptga(PF) (MARCAINE SPINAL) 0.75 % (7.5 mg/mL) injection intrathecal, One-Time Injection, Starting on Stephani 12/24/24 at 2113, For 1 dose, Anesthesia Intra-op Given12/24/2024 9:13 PM EDT1.8 mL ceFAZolin (ANCEF) IVPB 2000 mg/50 mL in iso-osmotic dextrose (40 mg/mL premix) intravenous, Administer over 30 Minutes, As needed, Starting on Stephani 12/24/24 at 2106, Anesthesia Intra-op Given12/24/2024 9:06 PM EDT2,000 mg dexAMETHasone (DECADRON) injection intravenous, As needed, Starting on Stephani 12/24/24 at 2137, Anesthesia Intra-op Given12/24/2024 9:37 PM EDT8 mg ePHEDrine sulfate injection intramuscular, As needed, Starting on Stephani 12/24/24 at 2115, Anesthesia Intra-op Given12/24/2024 9:15 PM EDT50 mg ketorolac (TORADOL) injection intravenous, As needed, Starting on Stephani 12/24/24 at 2106, Anesthesia Intra-op Given12/24/2024 9:06 PM EDT15 mg lactated ringers infusion intravenous, Continuous PRN, Starting on Stephani 12/24/24 at 2106, Anesthesia Intra-op New Bag12/24/2024 9:06 PM EDT morphine PF (DURAMORPH) injection intrathecal, One-Time Injection, Starting on Stephani 12/24/24 at 2112, For 1 dose, Anesthesia Intra-op Given12/24/2024 9:12 PM EDT0.15 mg ondansetron (PF) (ZOFRAN) injection intravenous, As needed, Starting on Stephani 12/24/24 at 2106, Anesthesia Intra-op Given12/24/2024 9:06 PM EDT4 mg oxytocin (PITOCIN) infusion 30 units/500 mL in lactated ringers (0.06 units/mL premix) intravenous, As needed, Starting on Stephani 12/24/24 at 2136, Anesthesia Intra-op Given12/24/2024 10:07 PM CZJ723 fHMsrao2512/24/2024 9:50 PM WMZ626 mLGiven 12/24/2024 9:36 PM EDT1 mL phenylephrine HCl in 0.9% NaCl 1 mg/10 mL (100 mcg/mL) syringe intravenous, As needed, Starting on Stephani 12/24/24 at 2117, Anesthesia Intra-op Given12/24/2024 9:17 PM VZC875 nifZbtlw72/30/2025 9:14 PM LGZ080 mcgdocumented in this encounter Additional Health Concerns AssessmentNoted TimeA Body Mass Index follow-up plan has been documented for the oyrjaju9909/08/2024 11:31 AM EDTdocumented as of this encounter Care Teams Team MemberRelationshipSpecialtyStart DateEnd Date Carloz Nelson MD [address] [phone] PCP - GeneralInternal Jrsmtnop34/30/24documented as of this encounter
--- OUTSIDE RECORDS SUMMARY | 2024-12-24 20:30 | XMS_ITS | Encounter Summary ---
Author Organization [facility] [employer] [facility] tem Address [facility] [address] [place] [address] Care Team Providers Care Supervisor Char House Name Role Phone Carloz Nelson MD Primary Care Provider [phone] Reason for Visit * ReasonCommentsScheduled Induction * Auth/CertSpecialtyDiagnoses / ProceduresReferred By ContactReferred To Contact Joanie Sommer APRN-JO-ANN [address] [place] [address] Phone: tel: fax: Referral IDStatusReasonStart DateExpiration DateVisits RequestedVisits [id number] Encounter Details DateTypeDepartmentCare Team (Latest Contact Info)Ygfjvmuxigu22/30/2025 9:30 PM EDT - 12/24/2024 11:13 PM EDTSurgery [facility] [address] [place] [address] Antwon Segura, DO [address] [place] [address] [address] [address] Surgery Details Date/TimeStatusLocationORServicePatient ClassCase ClassCase TypeTrauma Case? 12/24/2024 9:30 PMPostedFREMONT LD ORLDOR 01ObstetricsInpatientPanel 1 Procedure LRBAnesOp RegionWound ClassCommentsC-SECTIONN/AAbdomenClean Contaminated SurgeonSurgeon RoleServicePanAntwon García, DOPrimaryObstetrics1 Case Notes maternal decision documented in this encounter Social History Tobacco UseTypesPacks/DayYears [...] a part of a household?No12/23/2024hildcareAnswerDate RecordedChildcareUnknown 08/05/2018EmploymentAnswerDate UwyofpzmBikboivcmgZeagmao51/11/2019Hunger ScreeningAnswerDate RecordedWithin the past 12 months we worried whether our food would run out before we got money to buy more.Never True12/23/2024Within the past 12 months the food we bought just didn't last and we didn't have money to get more.Never True12/23/2024CommentsNoSex and Gender Information ValueDate RecordedSex Assigned at MjcnjIggjer24/09/2025 6:08 PM EDTLegal Sex Jagbjn5909/28/2014 8:25 PM EDTGender DlfhnyzqJhmfio09/09/2025 6:07 PM EDTSexual OrientationChoose not to kvovstvj07/09/2025 6:07 PM EDTdocumented as of this encounter Last Filed Vital Signs Vital SignReadingTime TakenCommentsBlood Qdgryhfr909/6812/24/2024 11:13 PM EDT Wloph224412/24/2024 11:13 PM KOWNnwyizbnivf55.7 ??C (98.1 ??F)12/24/2024 10:30 PM EDTRespiratory Jeii2505 11:13 PM EDTOxygen Saturation--Inhaled Oxygen Concentration--Weight--Height--Body Mass Index--documented in this encounter Functional Status * AUDIT-C ScoreAnswerDate of InxiqtlkhaKqlnst255/17/2025 11:16 AM Larissa Rizo MA * QuestionAnswerDate [...] Larissa Bailon MA * QuestionAnswerDate of AssessmentAuthorFunctional VmdqxnRbdmfrtobvz48/29/2025 6:34 PM Gloria Solares RN documented as [...] wound clean and dry and as directed Data Information for the patient's : Trish Siddiqui [[id number]] male 3.52 kg Discharge with mother Discharge [...] Your Medications These medications were sent to [facility]/pharmacy #[id number] AT [place] [address] acetaminophen 500 mg tablet docusate sodium 100 [...] risks and the increased risk of sudden syndrome and respiratory problems to her baby [...] (use each time after carl care) Sexual [place] No tampons, douching, or sexual intercourse until [...] as of this encounter Progress Notes * Cassandra Saleh APRN-JO-ANN - 12/27/2024 9:12 AM EST Post operative [...] 12/27/24 9:12 AM ZEUS Harrison 12/27/24 0916 * ZEUS Manzo - 12/26/2024 9:24 AM EDT .Delicia Siddiqui [...] tablet 1,000 mg, 1,000 mg, oral, Q8H, Delicia A Richi, CRIME SCENE EVIDENCE TECHNICIAN-CNM, 1,000 mg at 12/25/24 0107 bisacodyL (DULCOLAX) suppository 10 mg, 10 mg, rectal, Once PRN, Delicia Stoddard CRIME SCENE EVIDENCE TECHNICIAN-CNM carboprost (HEMABATE) injection 250 mcg, 250 mcg, intramuscular, Once PRN, Delicia Stoddard, CRIME SCENE EVIDENCE TECHNICIAN-CNM carboprost (HEMABATE) injection 250 mcg, 250 mcg, intramuscular, Once PRN, Delicia Stoddard, CRIME SCENE EVIDENCE TECHNICIAN-CNM diphenhydrAMINE (BENADRYL) injection 25 mg, 25 mg, intravenous, Q6H PRN, DO gamaliel Townsend,pertus(acell),tetanus (BOOSTRIX) injection 0.5 mL, 0.5 mL, intramuscular, During hospitalization, Delicia Stoddard APRN-CNM docusate sodium (COLACE) capsule 100 mg, 100 mg, oral, BID, Delicia Stoddard APRN-CNM, 100 mg at1 2336 hydrocortisone (ANUSOL-HC) 2.5 % rectal cream 1 Application, 1 Application, rectal, PRN, Delicia Stoddard CRIME SCENE EVIDENCE TECHNICIAN-CNM ketorolac (TORADOL) injection 30 mg, 30 mg, intravenous, Q8H, 30 mg at 12/25/24 0528 FOLLOWED BY [START ON 12/26/2024] ibuprofen (MOTRIN) tablet 800 mg, 800 mg, oral, Q8H, Delicia Stoddard, CRIME SCENE EVIDENCE TECHNICIAN-CNM lactated ringers infusion, 999 mL/hr, intravenous, Continuous PRN, Delicia Stoddard, CRIME SCENE EVIDENCE TECHNICIAN-CNM oxytocin (PITOCIN) infusion 30 units/500 mL in lactated ringers (0.06 units/mL premix), 42 marciano-units/min, intravenous, Continuous PRN, Stopped at 12/25/24 0306 AND lactated ringers infusion, 83mL/hr, intravenous, Continuous PRN, Delicia Stoddard APRN-CNM, Stopped at 12/25/24 0307 lactated ringers infusion, 125 mL/hr, intravenous, Continuous, Delicia Stoddard APRN-CNM, Pausedat 12/25/24 0433 lactated ringers infusion, 999 mL/hr, intravenous, Continuous PRN, Delicia Stoddard, CRIME SCENE EVIDENCE TECHNICIAN-CNM lactated ringers infusion, 999 mL/hr, intravenous, Continuous PRN, Delicia Stoddard, CRIME SCENE EVIDENCE TECHNICIAN-CNM measles, mumps and rubella vaccine (M-M-R II) injection 0.5 mL, 0.5 mL, subcutaneous, During hospitalization, Delicia Stoddard CRIME SCENE EVIDENCE TECHNICIAN-CNM methylergonovine (METHERGINE) injection 200 mcg, 200 mcg, intramuscular, Once PRN, Delicia Stoddard, CRIME SCENE EVIDENCE TECHNICIAN-CNM methylergonovine (METHERGINE) injection 200 mcg, 200 mcg, intramuscular, Once PRN, Delicia Stoddard, CRIME SCENE EVIDENCE TECHNICIAN-CNM miSOPROStoL (CYTOTEC) tablet 800 mcg, 800 mcg, sublingual, Once PRN, Delicia Stoddard CRIME SCENE EVIDENCE TECHNICIAN-CNM miSOPROStoL (CYTOTEC) tablet 800 mcg, 800 mcg, sublingual, Once PRN, Delicia Stoddard, CRIME SCENE EVIDENCE TECHNICIAN-CNM modified lanolin (LANSINOH) 100 % cream cream 1 Application, 1 Application, topical, PRN, Ev Stoddard CRIME SCENE EVIDENCE TECHNICIAN-CNM, 1 Application at 12/24/24 2337 nalbuphine (NUBAIN) injection 2 mg, 2 mg, intravenous, Q3H PRN, David Guadalupe, DO naloxone (NARCAN) injection 0.1 mg, 0.1 mg, intravenous, PRN, David Guadalupe, DO ondansetron (PF) (ZOFRAN) injection 4 mg, 4 mg, intravenous, Q4H PRN, Delicia Stoddard CRIME SCENE EVIDENCE TECHNICIAN-CNM,4 mg at 12/25/24 0039 oxyCODONE (ROXICODONE) immediate release tablet 10 mg, 10 mg, oral, Q4H PRN, Delicia Stoddard, CRIME SCENE EVIDENCE TECHNICIAN-CNM, 10 mg at 12/25/24 0751 oxyCODONE (ROXICODONE) immediate release tablet 5 mg, 5 mg, oral, Q4H PRN, Delicia Stoddard CRIME SCENE EVIDENCE TECHNICIAN-CNM, 5 mg at 12/25/24 0040 oxytocin (PITOCIN) bolus from bag solution 10 Units, 10 Units, intravenous, Once PRN, ZEUS Burton oxytocin (PITOCIN) injection 10 Units, 10 Units, intramuscular, Once PRN, ZEUS Burton oxytocin (PITOCIN) injection 10 Units, 10 Units, intramuscular, Once PRN, ZEUS Burton PNV,calcium 54-kqlq-ujkxg acid ( PLUS) 27 mg iron- 1 mg tablet 1 tablet, 1 tablet, oral, Daily, ZEUS Burton polyethylene glycol (GLYCOLAX) packet 17 g, 17 g, oral, Daily, ZEUS Burton simethicone (MYLICON) chewable tablet 80 mg, 80 mg, oral, ACHSP, ZEUS Burton sodium chloride 0.9 % flush 3 mL, 3 mL, intravenous, PRN, Joanie Sommer APRN-JO-ANN sodium chloride 0.9 % flush 3 mL, 3 mL, intravenous, Q12H NATALIE, ZEUS Murillo tranexamic acid (CYKLOKAPRON) injection 1,000 mg, 1,000 mg, intravenous, Q30 Min PRN, Joanie Sommer APRN-JO-ANN tranexamic acid (CYKLOKAPRON) injection 1,000 mg, 1,000 mg, intravenous, Q30 Min PRN, ZEUS Burton tranexamic acid (CYKLOKAPRON) injection 1,000 mg, 1,000 mg, intravenous, Q30 Min PRN, ZEUS Burton varicella virus vaccine live (VARIVAX) injection 0.5 [...] and reflexes Throughout OARS report reviewed at NE. Assessment S/P PLTCS Positive for Ureaplasm urealyticum HX anemia VSS Day :1 routine care NE IV fluids Ambulation, incentive spirometry and pain management reviewed with patient. - ZEUS CASH 12/25/24 8:02 AM ZEUS Cash 12/25/24 0808 * ZEUS Burton - 12/24/2024 10:13 PM EDT certified nursing assistant Section for non-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 Surgeon: Dr. Segura I was present for all valadez parts of the procedure, allowing for adequate visualization of the surgical field, and improved safety and efficiency during the case. I assisted with delivery of the , allowing for adequate exposure, fundal pressure and assessment while the primary surgeon c ontinued the surgical procedure. I also assisted with wound closure, independently performing skin closure with a subcuticular suture. - ZEUS Burton 12/24/24 10:15 PM ZEUS Burton 12/24/242214 * ZEUS Burton - 12/24/2024 8:04 PM [...] Burton 12/24/24 7:41 AM ZEUS Burton 12/24/24 0801 * ZEUS Manzo - 12/23/2024 7:07 PM [...] position changes. Reassess PRN ZEUS MANZO APRN-CNM 12/23/241935 ZEUS Manzo 12/23/241944 documented in this encounter [...] breast Pain Management: Nubain or Nitrous Oxide [place] Care Provider: Surya Romero Lab Review ABO/Rh: [...] Description: INTERVENTIONS: 1. Encourage patient or legal dental detail representative to report early pain and ask [...] per policy 9. Teach patient or legal dental detail representative interventions for comforting Outcome: Completed Note: [...] at the bedside 7. Instruct patient/ patient dental detail representative about use of safety devices 8. Include patient/ patient dental detail representative in decisions related to safety Outcome: [...] hygiene technique. 7. Identify and instruct patient/patient dental detail representative in use of appropriate isolation precautionsfor identified infection/symptoms. 8. Provide and discuss with patient/patient dental detail representative on educational MDRO sheet. 9. Encourage and monitor nutritional status daily and consult senior major gifts officer if indicated. 10. Implement neutropenic guidelines as needed. Outcome: Completed Note: Evaluation of progress towards goal: Patient afebrile at this time, patient VS WNL. Pt assessed and monitored for signs and symptoms of infection, lab and diagnostic results monitored as needed, administer medications as needed. Hand hygiene completed. Continue to monitor. Problem: Knowledge Deficit Goal: Patient/patient dental detail representative demonstrates understanding of disease process, treatment [...] supplement as ordered 13. Collaborate with clinical senior major gifts officer 14. Include patient/ patient's dental detail representative in decisions related to nutrition Outcome: [...] Description: INTERVENTIONS: 1. Encourage patient or legal dental detail representative to report early pain and ask [...] per policy 9. Teach patient or legal dental detail representative interventions for comforting Outcome: Progressing Note: [...] at the bedside 7. Instruct patient/ patient dental detail representative about use of safety devices 8. Include patient/ patient dental detail representative in decisions related to safety Outcome: [...] hygiene technique. 7. Identify and instruct patient/patient dental detail representative in use of appropriate isolation precautionsfor identified infection/symptoms. 8. Provide and discuss with patient/patient dental detail representative on educational MDRO sheet. 9. Encourage and monitor nutritional status daily and consult senior major gifts officer if indicated. 10. Implement neutropenic guidelines as needed. Outcome: Progressing Note: Evaluation of progress towards goal: Patient afebrile at this time, patient VS WNL. Pt assessed and monitored for signs and symptoms of infection, lab and diagnostic results monitored as needed, administer medications as needed. Hand hygiene completed. Continue to monitor. Problem: Knowledge Deficit Goal: Patient/patient dental detail representative demonstrates understanding of disease process, treatment [...] supplement as ordered 13. Collaborate with clinical senior major gifts officer 14. Include patient/ patient's dental detail representative in decisions related to nutrition Outcome: [...] Description: INTERVENTIONS: 1. Encourage patient or legal dental detail representative to report early pain and ask [...] per policy 9. Teach patient or legal dental detail representative interventions for comforting Outcome: Progressing Note: [...] at the bedside 7. Instruct patient/ patient dental detail representative about use of safety devices 8. Include patient/ patient dental detail representative in decisions related to safety Outcome: [...] hygiene technique. 7. Identify and instruct patient/patient dental detail representative in use of appropriate isolation precautionsfor identified infection/symptoms. 8. Provide and discuss with patient/patient dental detail representative on educational MDRO sheet. 9. Encourage and monitor nutritional status daily and consult senior major gifts officer if indicated. 10. Implement neutropenic guidelines as needed. Outcome: Progressing Note: Evaluation of progress towards goal: Patient afebrile at this time, patient VS WNL. Pt assessed and monitored for signs and symptoms of infection, lab and diagnostic results monitored as needed, administer medications as needed. Hand hygiene completed. Continue to monitor. Problem: Knowledge Deficit Goal: Patient/patient dental detail representative demonstrates understanding of disease process, treatment [...] supplement as ordered 13. Collaborate with clinical senior major gifts officer 14. Include patient/ patient's dental detail representative in decisions related to nutrition Outcome: [...] Description: INTERVENTIONS: 1. Encourage patient or legal dental detail representative to report early pain and ask [...] per policy 9. Teach patient or legal dental detail representative interventions for comforting Outcome: Progressing Note: [...] at the bedside 7. Instruct patient/ patient dental detail representative about use of safety devices 8. Include patient/ patient dental detail representative in decisions related to safety Outcome: [...] hygiene technique. 7. Identify and instruct patient/patient dental detail representative in use of appropriate isolation precautionsfor identified infection/symptoms. 8. Provide and discuss with patient/patient dental detail representative on educational MDRO sheet. 9. Encourage and monitor nutritional status daily and consult senior major gifts officer if indicated. 10. Implement neutropenic guidelines as needed. Outcome: Progressing Note: Evaluation of progress towards goal: Patient afebrile at this time, patient VS WNL. Pt assessed and monitored for signs and symptoms of infection, lab and diagnostic results monitored as needed, administer medications as needed. Hand hygiene completed. Continue to monitor. Problem: Knowledge Deficit Goal: Patient/patient dental detail representative demonstrates understanding of disease process, treatment [...] supplement as ordered 13. Collaborate with clinical senior major gifts officer 14. Include patient/ patient's dental detail representative in decisions related to nutrition Outcome: [...] Description: INTERVENTIONS: 1. Encourage patient or legal dental detail representative to report early pain and ask [...] per policy 9. Teach patient or legal dental detail representative interventions for comforting Outcome: Progressing Note: [...] at the bedside 7. Instruct patient/ patient dental detail representative about use of safety devices 8. Include patient/ patient dental detail representative in decisions related to safety Outcome: [...] hygiene technique. 7. Identify and instruct patient/patient dental detail representative in use of appropriate isolation precautionsfor identified infection/symptoms. 8. Provide and discuss with patient/patient dental detail representative on educational MDRO sheet. 9. Encourage and monitor nutritional status daily and consult senior major gifts officer if indicated. 10. Implement neutropenic guidelines as needed. Outcome: Progressing Note: Evaluation of progress towards goal: NO S/S OF INFECTION. EDUCATION ABOUT INCISIONAL CARE PROVIDED Problem: Knowledge Deficit Goal: Patient/patient dental detail representative demonstrates understanding of disease process, treatment [...] Description: INTERVENTIONS: 1. Encourage patient or legal dental detail representative to report early pain and ask [...] per policy 9. Teach patient or legal dental detail representative interventions for comforting Outcome: Progressing Note: [...] at the bedside 7. Instruct patient/ patient dental detail representative about use of safety devices 8. Include patient/ patient dental detail representative in decisions related to safety Outcome: [...] hygiene technique. 7. Identify and instruct patient/patient dental detail representative in use of appropriate isolation precautionsfor identified infection/symptoms. 8. Provide and discuss with patient/patient dental detail representative on educational MDRO sheet. 9. Encourage and monitor nutritional status daily and consult senior major gifts officer if indicated. 10. Implement neutropenic guidelines as needed. Outcome: Progressing Note: Evaluation of progress towards goal: NO S/S OF INFECTION NOTED. GOOD HAND HYGIENE MAINTAINED Problem: Knowledge Deficit Goal: Patient/patient dental detail representative demonstrates understanding of disease process, treatment [...] Description: INTERVENTIONS: 1. Encourage patient or legal dental detail representative to report early pain and ask [...] per policy 9. Teach patient or legal dental detail representative interventions for comforting Outcome: Progressing Note: [...] at the bedside 7. Instruct patient/ patient dental detail representative about use of safety devices 8. Include patient/ patient dental detail representative in decisions related to safety Outcome: [...] hygiene technique. 7. Identify and instruct patient/patient dental detail representative in use of appropriate isolation precautionsfor identified infection/symptoms. 8. Provide and discuss with patient/patient dental detail representative on educational MDRO sheet. 9. Encourage and monitor nutritional status daily and consult senior major gifts officer if indicated. 10. Implement neutropenic guidelines as needed. Outcome: Progressing Note: Evaluation of progress towards goal: Patient is free from signs and symptoms of infection. Problem: Knowledge Deficit Goal: Patient/patient dental detail representative demonstrates understanding of disease process, treatment [...] Plan of Treatment DateTypeDepartmentCare Team (Latest Contact Info)Bgetlfidtor33/22/2025 9:00 AM ESTOffice Visit [facility] [address] [place] [phone] Nigel Kincaid MD [address] [place] [address] 03/01/2025 10:00 AM ESTOffice Visit [facility] [address] [place] [phone] Alice Michel MD [address] [place] [address] documented as of this encounter Procedures Procedure NamePriorityDate/TimeAssociated DiagnosisCommentsCBC (NO DIFF)Routine 12/25/2024 5:25 AM EDT C-VLDLHCQ4012/24/2024 9:05 PM EDT Intolerance of Labor Other (Add Comments) Case Notes maternal decision EXTRA TUBES PST WUDVhpwela61/29/2025 5:52 PM EDT SYPHILIS TOTAL(UNKNOWN SYPHILIS STATUS)Vecjoqu9212/23/2024 5:52 PM EDT EXTRA MATVJKgvooep42/29/2025 5:52 PM EDT CBC (NO DIFF)STAT1 5:52 PM EDT TYPE AND CWCTLIRNKA76/29/2025 5:52 PM EDT documented in this encounter Results * (ABNORMAL) CBC without diff (12/25/2024 5:25 AM EDT)ComponentValueRef Range Test MethodAnalysis TimePerformed AtPathologist ChrcjzqtgUGL64.6(H)4 - 11 x10E9/L1 5:51 AM [facility] Count3.81 3.8 - 5.2 X10E12/L1 5:51 AM [facility] Yewdbkbuyk70.3(L)11.7 - 15.5 g/dL12/25/2024 5:51 AM [facility]ALHematocrit33.5(L)35 - 47 %12/25/2024 5:51 AM [facility]ALMCV8880 - 100 fL12/25/2024 5:51 AM [facility]MCH29.827 - 34 pg12/25/2024 5:51 AM [facility]ALMCHC33.932 - 36 g/dL12/25/2024 5:51 AM [facility]ALRDW15.011.5 - 15 %12/25/2024 5:51 AM [facility]ALPlatelet Nzdrn907880 - 450 X10E9/L1 5:51 AM [facility]ALMPV9.97 - 12 fL12/25/2024 5:51 AM EDT [facility] (Source)Anatomical Location / LateralityCollection Method / VolumeCollection TimeReceived TimeBloodVenous blood / UnknownVenipuncture / Afzirgd7612/25/2024 5:25 AM EDT1 5:39 AM EDT Narrative Authorizing ProviderResult TypeResult StatusStephanie A Richi CRIME SCENE EVIDENCE TECHNICIAN-CNMLAB BLOOD ORDERABLESFinal ResultPerforming OrganizationAddressCity/State/ZIP CodePhone Number [facility] [address] [place] [address], [place] * PST TOP (12/23/2024 5:52 PM EDT)ComponentValueRef RangeTest MethodAnalysis TimePerformed AtPathologist SignatureExtra TubeAuto Qwtkacoj53/29/2025 7:01 PM EDTPJOINT TOWNSHIP DISTRICT MEMORIAL HOSPITALpecimen (Source)Anatomical Location / LateralityCollection Method / VolumeCollection TimeReceived TimeBloodVenous blood / [place]3212/23/2024 5:52 PM EDT1 6:12 PM EDT Narrative Authorizing ProviderResult TypeResult StatusKathlgermain Sommer CRIME SCENE EVIDENCE TECHNICIAN-CNMLAB BLOOD ORDERABLESFinal ResultPerforming OrganizationAddressCity/State/ZIP CodePhone Number [facility] [address] [place] [address], [place] * CBC without diff (12/23/2024 5:52 PM EDT)ComponentValueRef RangeTest Method Analysis TimePerformed AtPathologist SignatureWBC8.64 - 11 x10E9/L1 6:[address] [facility] HOSPITALRBC Count4.593.8 - 5.2 X10E12/L 12/23/2024 6:[address] [facility] HOSPITALHemoglobin13.411.7 - 15.5 g/dL12/23/2024 6:[address] [facility] BOARDMAN HOSPITALHematocrit 39.935 - 47 %12/23/2024 6:[address] [facility]AB[facility] BOARDMAN HOSPITALMCV8780 - 100 fL12/23/2024 6:[address] EL[facility]AB[facility] BOARDMAN HOSPITALMCH29.227 - 34 pg12/23/2024 6:[address] ELIZAB[facility] BOARDMAN HOSPITALMCHC33.732 - 36 g/dL12/23/2024 6:[address] ELIZAB[facility] BOARDMAN HOSPITALRDW14.911.5 - 15 %12/23/2024 6:[address] ELIZABETH BOARDMAN HOSPITALPlatelet Tblrs550686 - 450 X10E9/L1 6:[address] ELIZAB[facility] BOARDMAN HOSPITALMPV9.67 - 12 fL12/23/2024 6:17 PM EDTPROMEDICA MARSHALL MEDICAL CENTERpecimen (Source)Anatomical Location / LateralityCollection Method / VolumeCollection TimeReceived TimeBloodVenous blood / UnknownVenipuncture / Yczdgdb9512/23/2024 5:52 PM EDT1 6:12 PM EDT Narrative Authorizing ProviderResult TypeResult StatusKatjaycob Sommer CRIME SCENE EVIDENCE TECHNICIAN-CNMLAB BLOOD ORDERABLESFinal ResultPerforming OrganizationAddressCity/State/ZIP CodePhone Number [facility] [address] [place] [address], [place] * Type and screen(includes indirect callie) (12/23/2024 5:52 PM EDT)Component ValueRef RangeTest MethodAnalysis TimePerformed AtPathologist SignatureABOAB 12/23/2024 7:22 PM EDTFRE BB - FPKDEISRKXpweutzl33/29/2025 7:22 PM EDTFRE BB - WELLSKYAntibody EzahepMikjftgo49/29/2025 7:22 PM EDTFRE BB - WELLSKYSpecimen (Source)Anatomical Location / LateralityCollection Method / VolumeCollection TimeReceived TimeBloodVenous blood / UnknownVenipuncture / Srovbjq3012/23/2024 5:52 PM EDT1 6:12 PM EDT Narrative Authorizing ProviderResult TypeResult StatusKatjaycob Sommer CRIME SCENE EVIDENCE TECHNICIAN-CNMBLOOD BANK TEST ORDERABLESEdited Result - FinalPerforming OrganizationAddressty/State/ZIP CodePhone Number [address] [place] [address], [place] * Syphilis Total (Unknown Syphilis Status) (12/23/2024 5:52 PM EDT)Component ValueRef RangeTest MethodAnalysis TimePerformed AtPathologist Signature SYPHILIS TOTAL<0.2<=0.8 AI12/24/2024 1:01 PM EDTTKINDRED HOSPITAL LIMA LABORATORYSpecimen (Source)Anatomical Location / LateralityCollection Method / VolumeCollection TimeReceived TimeBloodVenous blood / UnknownVenipuncture / Yzjpvid8312/23/2024 5:52 PM EDT1 6:12 PM EDT Narrative [facility] - 12/24/2024 1:01 PM EDT NON REACTIVE No serologic evidence of infection to Treponema pallidum. Repeat testing may be considered in patients with suspected acute or primary syphilis in 2 to 4 weeks. Authorizing ProviderResult TypeResult StatusJoanie Sommer CRIME SCENE EVIDENCE TECHNICIAN-CNMLAB BLOOD ORDERABLESFinal ResultPerforming OrganizationAddressCity/State/ZIP CodePhone Number [facility] [address] [place] [address], documented in this encounter Visit Diagnoses Not on filedocumented in this encounter Admitting Diagnoses Diagnosis Encounter for elective induction of labor documented in this encounter Administered Medications Medication OrderMAR ActionAction DateDoseRateSite acetaminophen (TYLENOL EXTRA STRENGTH) tablet 1,000 mg 1,000 mg, oral, Every 8 hours, First dose on Sat12/25/24 at 0100, , Alternate administration every 4 hours with ketorolac or ibuprofen Given12/27/2024 9:17 AM EST1,000 cgPdwgi1012/27/2024 1:15 AM EDT1,000 mgGiven 12/26/2024 5:26 PM EDT1,000 mg bisacodyL (DULCOLAX) suppository 10 mg 10 [...] verify indication for use. Given12/27/2024 9:17 AM KTG702 meHrmna1612/26/2024 8:49 PM LRX716 mgGiven 12/26/2024 9:17 AM GZD033 mg doxycycline (VIBRAMYCIN) capsule 100 mg 100 mg, oral, 2 times daily, First dose on 12/27/24 at 0900, For 7 days, May give with meals to decrease GI upset. Administer with at least 8 ounces of water and have patient sit up for at least 30 minutes after taking to reduce the risk of esophageal irritation and ulceration., Indication: UTI Given12/27/2024 9:17 AM XCV744 mg hydrocortisone (ANUSOL-HC) 2.5 % rectal cream [...] with food or milk. Given12/27/2024 5:07 AM QAM978 agXbcit1712/26/2024 8:49 PM YVZ861 mgGiven 12/26/2024 12:46 PM JPP649 mg measles, mumps and rubella vaccine (M-M-R II) injection 0.5 mL 0.5 mL, subcutaneous, During hospitalization, immunization, If Rubella titer Not Immune or Equivocal before discharge, Starting on Stephani 12/24/24 at 2242, For 1 dose, , Refer to Sherley for administration instructions., Indications: cavpbxq-evbts-ltsvdmn vaccination Indications:cpmetxv-jmyqy-venpbtl vaccination methylergonovine (METHERGINE) injection 200 mcg 200 mcg, intramuscular, Once as needed, hemorrhage treatment, Starting on Stephani 12/24/24 at 2013, For 1 dose, , For hemorrhage treatment, [...] at 2242, , May keep at bedside Given12/24/2024 11:37 PM EDT1 Application naloxone (NARCAN) injection 0.1 mg 0.1 mg, [...] use. Immediate release. Given12/27/2024 2:46 AM EST10 qiPunik9012/26/2024 11:21 PM EDT10 mbOczoo5812/26/2024 5:25 PM EDT10 mg oxyCODONE (ROXICODONE) immediate release tablet 5 mg 5 mg, oral, Every 4 hours PRN, moderate pain - pain scale 4-6, breakthrough pain, Starting on Stephani 12/24/24 at 2242, , Look-alike/sound-alike medication - verify indication for use. Immediate release. Given12/27/2024 9:32 AM EST5 tpNlbdj7412/25/2024 9:32 PM EDT5 cwOrcff9012/25/2024 3:45 PM EDT5 mg oxytocin (PITOCIN) bolus [...] solution 1 mL/hour = 1 marciano-unit/min Rate/Dose Hnlcey6212/25/2024 2:29 AM EDT42 marciano-units/min42 mL/hrNew Bag 12/24/2024 11:03 PM EDT42 marciano-units/min42 mL/hr oxytocin (PITOCIN) injection 10 Units 10 Units, intramuscular, Once as needed, hemorrhage treatment, Starting on Sat12/24/24 at 2013, For 1 dose, , administer as directed by provider for Hemorrhage management oxytocin (PITOCIN) injection 10 Units 10 Units, intramuscular, Once as needed, hemorrhage treatment, Starting on Sat12/24/24 at 2242, For 1 dose, , administer as directed by provider for Hemorrhage management PNV,calcium 88-cmso-uilsn acid ( PLUS) 27 mg iron- 1 mg tablet 1 tablet 1 tablet, oral, Daily, First dose on Sat12/25/24 at 0900, Given12/27/2024 9:17 AM EST1 ytmvbkRxmjh49/01/2025 9:17 AM EDT1 tabletGiven 12/25/2024 9:02 AM EDT1 tablet polyethylene glycol (GLYCOLAX) packet 17 g 17 g, oral, Daily, First dose on Sat12/25/24 at 0900, , Look-alike/sound-alike medication - verify indication for use. Dissolve 1 packet (17 gm) in 8 ounces of water, juice, soda, coffee or tea. Given12/27/2024 9:17 AM EST17 xLjzoz0312/26/2024 9:17 AM EDT17 vEtslq9812/25/2024 9:02 AM EDT17 g simethicone (MYLICON) chewable [...] Sat12/23/24 at 1734, Given12/26/2024 12:15 PM EDT3 uUOyikr8312/25/2024 7:49 PM EDT3 sGDbilg2312/25/2024 7:40 AM EDT3 mL sodium chloride 0.9 % flush 3 mL 3 mL, intravenous, Every 12 hours scheduled, First dose on Sat12/23/24 at 2100, Given12/26/2024 8:19 PM EDT3 hRCiptf2712/26/2024 9:17 AM EDT3 uXNzifb0412/25/2024 9:11 PM EDT3 mL tranexamic acid (CYKLOKAPRON) injection 1,000 mg [...] times in both EDT and EST. Medication Order/ acetaminophen (TYLENOL EXTRA STRENGTH) tablet 1,000 mg 1,000 mg, oral, Every 8 hours, First dose on Sat12/25/24 at 0100, , Alternate administration every 4 hours with ketorolac or ibuprofen * 0107 (Given - Provider: Miriam Alexandre RN) * 0902 (Given - Provider: Mini Munoz RN) * 1724 (Given - Provider: Mini Munoz RN - Comment: cnm states ok) * 0158 (Given - Provider: Ambar Armstrong, RN) * 0917 (Given - Provider: Sabrina Lomeli, RN) * 1726 (Given - Provider: Sabrina Lomeli, RN) * 0115 (Given - Provider: Ambar Armstrong, RN) * 0917 (Given - Provider: Sabrina Lomeli, RN) clindamycin (CLEOCIN) IVPB 600 mg/50 mL in dextrose 5% (12 mg/mL premix) (CANCELED) 600 mg, intravenous, at 100 mL/hr, Administer over 30 Minutes, Every 8 hours, First dose on Sat12/23/24 at 1945, L&D Pre-Delivery, Indication: Other, Specify: ureaplasma urealyticum * 0351 (New Bag - Provider: Miriam Alexandre RN) * 0352 (Paused - Provider: Miriam Alexandre RN) * 0352 (Paused - Provider: Miriam Alexandre RN) * 0355 (Paused - Provider: Miriam Alexandre RN) * 0355 (Restarted - Provider: Miriam Alexandre RN) * 0420 (Rate/Dose Verify - Provider: Miriam Alexandre RN) * 0421 (Stop Bag - Provider: Miriam Alexandre RN) clindamycin (CLEOCIN) IVPB 600 mg/50 mL in dextrose 5% (12 mg/mL premix) (COMPLETED) 600 mg, intravenous, at 100 mL/hr, Administer over 30 Minutes, Every 8 hours, First dose on Sat12/25/24 at 1200, For 2 days, NEXT DOSE TO START AT 1200, Indication: Gynecologic infection * 1152 (New Bag - Provider: Mini Munoz RN) * 1217 (Stop Bag - Provider: Mini Munoz, FRANCESCA) * 194 (New Bag - Provider: Sofía Wilkinson RN) * 2018 (Stop Bag - Provider: Ambar ArmstrongFRANCESCA) * 0410 (New Bag - Provider: Ambar Armstrong RN) * 0440 (Stop Bag - Provider: Amabr Armstrong RN) * 1217 (New Bag - Provider: Sabrina Lomeli RN) * 124 (Stop Bag - Provider: Sabrina Lomeli RN) * 2019 (New Bag - Provider: Ambar Armstrong RN) * 2048 (Stop Bag - Provider: Ambar Armstrong RN) * 0438 (New Bag - Provider: Ambar Armstrong RN) * 0508 (Stop Bag - Provider: Ambar Armstrong RN) docusate sodium (COLACE) capsule 100 mg 100 mg, oral, 2 times daily, First dose on Stephani 12/24/24 at 2245, , Look-alike/sound-alikemedication - verify indication for use. * 0902 (Given - Provider: Mini Munoz RN) * 211 (Given - Provider: Ambar Armstrong RN) * 0917 (Given - Provider: Sabrina Lomeli RN) * 2048 (Given - Provider: Ambar Armstrong RN) * 0917 (Given - Provider: Sabrina Lomeli RN) doxycycline (VIBRAMYCIN) capsule 100 mg 100 mg, oral, 2 times daily, First dose on 12/27/24 at 0900, For 7 days, May give with meals to decrease GI upset. Administer with at least 8 ounces of water and have patient sit up for at least 30 minutes after taking to reduce the risk of esophageal irritation and ulceration., Indication: UTI * 0917 (Given - Provider: Sabrina Lomeli RN) ibuprofen (MOTRIN) tablet 800 mg(Linked Group [...] (Given - Provider: Ambar Armstrong RN) * 050 (Given - Provider: Ambar Armstrong RN) ketorolac (TORADOL) injection 30 mg (COMPLETED)(Linked Group [...] RN) * 1220 (Given - Provider: Mini Munoz RN) * 2110 (Given - Provider: Ambar Armstrong, FRANCESCA) PNV,calcium 92-ptss-yskda acid ( PLUS) 27 mg iron- 1 mg tablet 1 tablet 1 tablet, oral, Daily, First dose on Sat12/25/24 at 0900, * 0902 (Given - Provider: Mini Munoz RN) * 0917 (Given - Provider: Sabrina Lomeli, FRANCESCA) * 0917 (Given - Provider: Sabrina Lomeli, FRANCESCA) polyethylene glycol (GLYCOLAX) packet 17 g 17 g, oral, Daily, First dose on Sat12/25/24 at 0900, , Look-alike/sound-alike medication - verify indication for use. Dissolve 1 packet (17 gm) in 8 ounces of water, juice, soda, coffee or tea. * 0902 (Given - Provider: Mini Munoz RN) * 0917 (Given - Provider: Sabrina Lomeli, FRANCESCA) * 0917 (Given - Provider: Sabrina Lomeli, FRANCESCA) sodium chloride 0.9 % flush 3 mL 3 mL, intravenous, Every 12 hours scheduled, First dose on Sat12/23/24 at 2100, * 0900 (Not Given - Provider: Mini Munoz RN - Reason: Contraindicated - Comment: FLUSHED WHEN SALINE LOCKED) * 2110 (Given - Provider: Ambar Armstrong, FRANCESCA) * 09 (Given - Provider: Sabrina Lomeli, FRANCESCA) * 2019 (Given - Provider: Ambar Armstrong, FRANCESCA) * 0900 (Due) Medication Order//03/2024 lactated ringers infusion (CANCELED) 125 mL/hr, intravenous, Continuous, Starting on Sat12/24/24 at 2014, For 1 day, , Start after 4 hour oxytocin (PITOCIN) infusion and lactated ringers infusion is completed. * 0308 (Rate/Dose Change - Provider: Miriam Alexandre, RN) * 0350 (Stop Bag - Provider: Miriam Alexandre RN) * 0351 (Stop Bag - Provider: Miriam Alexandre, RN) * 0430 (Paused - Provider: Miriam Alexandre, RN) * 0431 (Restarted - Provider: Miriam Alexandre RN) * 0433 (Paused - Provider: Miriam Alexandre, RN) * 0740 (Stop Bag - Provider: Mini Munoz RN - Comment: [Order ends at this time. Document the following action when infusion is complete: Stop Bag]) lactated ringers infusion (CANCELED)(Linked Group 2) 125 mL/hr, intravenous, Continuous, Starting on Stephani 12/24/24 at 2014, For 1 day, L&D Pre-Delivery * 0433 (New Bag - Provider: Miriam Alexandre RN) * 0433 (Rate/Dose Verify - Provider: Mini Munoz RN) * 0740 (Stop Bag - Provider: Mini Munoz RN) Medication Order//03/2024 bisacodyL (DULCOLAX) suppository 10 [...] * 0229 (Rate/Dose Verify - Provider: Miriam Alexandre, FRANCESCA) * 0307 (Stop Bag - Provider: Miriam Alexandre, FRANCESCA) measles, mumps and rubella vaccine (M-M-R II) injection 0.5 mL 0.5 mL, subcutaneous, During hospitalization, immunization, If Rubella titer Not Immune or Equivocal before discharge, Starting on Stephani 12/24/24 at 2242, For 1 dose, , Refer to Sherley for administration instructions., Indications: uwmxjmi-prcwk-mgfjpxx vaccination methylergonovine (METHERGINE) injection 200 mcg 200 [...] RN) * 0226 (Given - Provider: Ambar Armstrong RN) * 0746 (Given - Provider: Sabrina Lomeli, FRANCESCA) * 1157 (Given - Provider: Sabrina Lomeli RN) * 1725 (Given - Provider: Sabrina Lomeli, FRANCESCA) * 2321 (Given - Provider: Ambar Armstrong, RN) * 0246 (Given - Provider: Ambar Armstrong, RN) oxyCODONE (ROXICODONE) immediate release tablet 5 mg 5 mg, oral, Every 4 hours PRN, moderate pain - pain scale 4-6, breakthrough pain, Starting on Stephani 12/24/24 at 2242, , Look-alike/sound-alike medication - verify indication for use. Immediate release. * 0040 (Given - Provider: Miriam Alexandre RN) * 1141 (Not Given - Provider: Mini Munoz, FRANCESCA - Reason: Contraindicated) * 1545 (Given - Provider: Mini Munoz, RN) * 2132 (Given - Provider: Sofía Wilkinson RN) * 0932 (Given - Provider: Sabrina Lomeli RN) oxytocin (PITOCIN) bolus from bag solution 10 [...] * 0229 (Rate/Dose Verify - Provider: Miriam Alexandre, FRANCESCA) * 0306 (Stop Bag - Provider: Miriam Alexandre RN) * 0307 (Stop Bag - Provider: Miriam Alexandre, FRANCESCA) oxytocin (PITOCIN) injection 10 Units 10 Units, intramuscular, Once as needed, hemorrhage treatment, Starting on Stephani 12/24/24 at 2012, For 1 dose, , administer [...] 1734, * 0740 (Given - Provider: Mini Munoz, RN) * 1949 (Given - Provider: Sofía Wilkinson, RN) * 1215 (Given - Provider: Sabrina Lomeli RN) tranexamic acid (CYKLOKAPRON) injection 1,000 mg 1,000 [...] follow-up plan has been documented for the pinlxmf6709/08/2024 11:31 AM EDTdocumented as of this encounter Care Teams Team MemberRelationshipSpecialtyStart DateEnd Date Carloz Nelson MD [address] [id number] PCP - GeneralInternal Emvywstv93/30/24documented as of this encounter
--- OUTSIDE RECORDS SUMMARY | 2024-12-31 15:00 | XMS_ITS | Encounter Summary ---
Author Organization [facility] tem Address [id number] [address] [place] [address] Care Team Providers Care Security Strategist Name Role Phone Carloz Nelson MD Primary Care Provider [phone] Reason for Visit * ReasonCommentsPostpartum CarePatient presents for one week incision check after primary with Dr. Segura. 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; Pain at surgical incision; Excessive incisional edema, initial encounter Social History Tobacco UseTypesPacks/DayYears UsedDateSmoking Tobacco: NeverPassive Smoke Exposure: NeverSmokeless Tobacco: NeverAlcohol UseStandard Drinks/WeekComments Not Currently0 (1 standard drink = 0.6 oz pure alcohol)PHQ-2AnswerDate Recorded Total Znnno64103/02/2024UDIT-CAnswerDate RecordedQ1: How often do you have a drink containing alcohol?Never12/31/2024Q2: How many drinks containing alcohol do you have on a typical day when you are drinking?Patient does not drink 12/31/2024Q3: How often do you have six or more drinks on one occasion?Never 12/31/2024Overall Financial Resource Strain (CARDIA)AnswerDate RecordedHow hard is it for you to pay for the very basics like food, housing, medical care, and heating?Not very hard12/31/2024PRAPARE - TransportationAnswerDate RecordedIn the past 12 months, has lack of transportation kept you from medical appointments or from getting medications?No12/23/2024In the past 12 months, has lack of transportation kept you from meetings, work, or from getting things needed for daily living?No12/23/2024Edinburgh Depression ScaleAnswerDate Recorded Stewart Depression Scale Ffvjb11203/01/2024The thought of harming myself has occurred to me.Never12/30/2024Housing InstabilityAnswerDate Recorded Are you worried or concerned that in the next two months you may not have stable housing that you own, rent or stay in as a part of a household?No12/23/2024 ChildcareAnswerDate RecordedDo problems getting child care development specialist make it difficult for you to work or study?No12/31/2024EmploymentAnswerDate RecordedEmploymentUnknown 08/05/2018Hunger ScreeningAnswerDate RecordedWithin the past 12 months we worried whether our food would run out before we got money to buy more.Never True12/31/2024Within the past 12 months the food we bought just didn't last and we didn't have money to get more.Never True12/31/2024CommentsNoSex and Gender InformationValueDate RecordedSex Assigned at FodytPysyfg95/09/2025 6:08 PM EDTLegal AlzBqbkez06/04/2015 8:25 PM EDTGender BtmullspPtavxv11/09/2025 6:07 PM EDTSexual OrientationChoose not to xhwyxtpz93/09/2025 6:07 PM EDTdocumented as of this encounter Last Filed Vital Signs Vital SignReadingTime TakenCommentsBlood Tzjuyzcj934/8612/31/2024 3:55 PM EST Pulse--Hunmnrjfpis65.8 ??C (98.2 ??F)12/31/2024 3:55 PM ESTRespiratory Rate-- Oxygen Saturation--Inhaled Oxygen Concentration--Czbpfv13.3 kg (144 lb) 12/31/2024 3:55 PM GEZArnuiw491.1 cm (5' 5 )12/31/2024 3:55 PM ESTBody Mass Index23.9612/31/2024 3:55 PM ESTdocumented in this encounter Functional Status * AUDIT-C ScoreAnswerDate of NryspykxenYfuolj969 3:55 PM Fozia Leone LPN * QuestionAnswerDate of AssessmentAuthorQ1: How often do you have a drink containing alcohol?Never12/31/2024 3:55 PM Fozia Leone LPNQ2: How many drinks containing alcohol do you have on a typical day when you are drinking? Patient does not drink12/31/2024 3:55 PM Fozia Leone LPNQ3: How often do you have six or more drinks on one occasion?Never12/31/2024 3:55 PM EST Fozia Briscoe LPN documented as of this encounter Progress Notes * Karmen Hahn, DO - 12/31/2024 3:00 PM EST Patient presents for one week incision check after primary with Dr. Segura. Patient reports she feels ill, sweaty and feels like she has chills. Pt is unsure if she has a fever, no thermometer at home. Pt is voiding and bowels are moving normally. Reports pain at incision site on left sideinternally and has a bulge externally on left side as well. She describes pain as a deep throbbing constant pain. Rates at a 5-6/10. She also pain in groin area on both sides. Pt reports she has an odor that she's noticed since the she was in the hospital, but she's unsure if the odor is coming from her incision site or vaginally. Subjective Delicia Siddiqui is a 29 y.o. female who presents to the clinic 1 weeks status post section for intolerance of labor. Eating a regular diet without difficulty. Bowel movements are normal. Patient states that her pain is not well controlled at all. She also has concerns that shehas had a fever as she is awakening in the middle of the night with chills and feeling hot and flushed. She is taking around the clock Tylenol and Motrin. She also has noticed a large bulge on the left side of her incision. The bulge is more prominent when she is changing positions particularly going from lying to sitting. This entire portion of her incision is excruciatingly painful. She is having a difficult time ambulating. She reports that she had severe nausea during the entire trip over here from her home as every time she hit a bump that part of the incision caused her pain. Patient reports initially she was having an improvement in pain, but approximately day 3-4 the pain began to worsen and that is when she feels that the lump appeared as well. She denies drainage or bleeding from the incision. The following portions of the patient's history were reviewed and updated as appropriate: allergies, current medications, past family history, past medical history, past social history, past surgicalhistory, problem list, and medication reconciliation was completed including current medication andpost discharge medication. Review of Systems Constitutional: negative Respiratory: negative Cardiovascular: negative Gastrointestinal: negative Genitourinary: Concerned with her section incision bulge and pain Objective BP 134/86 Temp 36.8 ??C (98.2 ??F) Ht 165.1 cm (5' 5 ) Wt 65.3 kg (144 lb) LMP (LMP Unknown) Yes BMI 23.96 kg/m?? General: alert, appears stated age, cooperative, and moderate distress Abdomen: Patient expresses generalized discomfort Incision: healing well, no drainage, no erythema, there is a noticeable bulge on the left side of the incision particularly were noticeable when patient is changing position from lying to sitting, nodehiscence, incision well approximated patient does express extreme tenderness to palpation along the entirety of the incision worse on the left Assessment Doing well postoperatively. Postoperative course complicated by incisional pain and swelling Plan 1. Advised patient to report to the emergency room for imaging of the incision to ensure that she does not have a herniation in the area of the fascia. Advised patient to check her temperature at home when she is feeling flushed or chilled. Temperature of 100.4?? F or higher is a fever if this occurs she needs to call or come in. Patient reports that she is going to go to [facility] as that is where Dr. Segura works, and he did perform her surgery. We discussed that there is a physician available at [facility] as well. Patient feels more comfortable going to [place] as she lives there and that is closest to her home. documented in this encounter Plan of Treatment DateTypeDepartmentCare Team (Latest Contact Info)Sihyxplsszf82/22/2025 9:00 AM ESTOffice Visit [facility] [address] [place] [address] Nigel Kincaid MD [address] [place], [place] [id number] 03/01/2025 10:00 AM ESTOffice Visit [facility] [address] [place] [address] Alice Michel MD [address] [place] [address] documented as of this encounter Visit Diagnoses Diagnosis delivery delivered- Primary delivery, without mention of indication, delivered, with or without mention of antepartum condition 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
[2024-12-31 20:41] VITALS: BP 130/89; PULSE 89; TEMP 36.6; O2SAT 97; BMI 21.0
--- NOTE | 2024-12-31 21:04 | CT_ITS ---
[address] [address] Patient Name: LANE SHAW MRN: [id number] date: 1995 Sex: F Assigned Patient Location: ER [facility] Accession/Order Number: [id number] Exam Date: 12/31/2024 21:30 Report Date: 12/31/2024 21:59 At the request of: ALLI OLIVAS MD Procedure: CT abdomen pelvis w con CT Abdomen and Pelvis , withcontrast TECHNIQUE: Axial imaging with 2-D reconstruction. The CT exam was performed using one or more the following dose reduction techniques: Automated exposure control, adjustment of the MA and/or Kv according to patient size, or use of the iterative reconstruction technique. COMPARISON: 12/12/2023 History: Acute abdominal pain for one week. Recent . Incisional pain. LIMITATIONS: None LOWER THORAX Unremarkable LIVER: Unremarkable GALLBLADDER: No gallbladder abnormality identified. BILE DUCTS: No dilatation SPLEEN: Unremarkable PANCREAS: Unremarkable ADRENAL GLANDS: Unremarkable KIDNEYS:Unremarkable AORTA: No abdominal aortic aneurysm identified. RETROPERITONEUM: No significant retroperitoneal abnormalities identified. MESENTERY:Unremarkable STOMACH:Unremarkable SMALL BOWEL: The small bowel loops are nondistended. APPENDIX: The appendix is normal. COLON: Unremarkable URINARY BLADDER: Urinary bladder is unremarkable. REPRODUCTIVE SYSTEM: Enlarged uterus. PNEUMOPERITONEUM: None PERITONEAL FLUID:None BONY STRUCTURES: Unremarkable ABDOMINAL WALL: incision contains low density nondistended fluid. Minimal likely postsurgical subcutaneous air. No herniation. No acute bleeding. CT/CT abdomen pelvis w con IMPRESSION: A uterus. incision containing nondistended fluid. The minimal subcutaneous air likely postsurgical. No active bleeding. No hemoperitoneum. No hematoma. No acute abdominal or pelvic findings. Impression dictated by: Dylan Sloan M.D. 12/31/2024 9:59 PM Dictation Location: [employer] Electronically authenticated by: [id number] Y Date: 12/31/2024 21:59
--- NOTE | 2024-12-31 21:06 | PC.NURSE ---
steri strips in place , no s/s of infection to incision site, no drainage, redness and no swelling observed with assessment. area of complaint soft to touch but pt c/o pain with palpitation.
--- OUTSIDE RECORDS SUMMARY | 2024-12-31 21:22 | XMS_ITS | Clinical Summary ---
Author Organization [facility] Address [address], [address] [place] [address] Care Team Providers Care Textile Screen Maker Name Role Phone Unavailable Primary Care Provider Unavailabl e Allergies Active AllergyReactionsCriticalityNoted DateCommentsNo Known Dothzxshs04/14/2021 Medications MedicationSigDispense QuantityRefillsLast FilledStart DateEnd DateStatus Acetaminophen (TYLENOL) 325 MG CAPS Take by mouthActive norethindrone-ethinyl estradiol-iron (LOESTRIN FE 1.5/30) 1.5-30 MG-MCG tablet Take 1 tablet by mouth daily 1 packet ctive Active Problems No known active problems Family History Medical HistoryRelationNameCommentsHeart DiseaseMotherRelationNameStatusComments Mother Social History Tobacco UseTypesPacks/DayYears UsedDateSmoking Tobacco: FormerSmokeless Tobacco: NeverAlcohol UseStandard Drinks/WeekCommentsYes0 (1 standard drink = 0.6 oz pure alcohol)occasionalCommentsNoSex and Gender InformationValueDate Recorded Sex Assigned at BirthNot on fileLegal ZjeTgfpaw14/29/2015 5:21 PM ESTGender IdentityNot on fileSexual OrientationNot on file Last Filed Vital Signs Vital SignReadingTime TakenCommentsBlood Ohmvsnkz900/62006/08/2020 10:09 AM EDT Pulse--Temperature--Respiratory Rate--Oxygen Saturation--Inhaled Oxygen Concentration--Weight8.255 kg (18 lb 3.2 oz)06/08/2020 10:09 AM JNXZiokmz172.1 cm (5' 5 )06/08/2020 10:09 AM EDTBody Mass Index3.03006/08/2020 10:09 AM EDT Plan of Treatment Not on file Insurance
--- OUTSIDE RECORDS SUMMARY | 2024-12-31 21:22 | XMS_ITS | Patient Health Record ---
Author Organization [facility] Address [address] [place] [address] Care Team Providers Care Test Carrier Name Role Phone Dr. Epifanio Velázquez Primary Care Provider [phone] Reason For Referral No Information Plan Of Treatment No Information Insurance Providers Payer Name Payer Address Payer Phone Subscriber Number Group Number Insured Name Patient Relationship to Insured Coverage Start Date Coverage End Date [employer] [place] [employer] [address] [place] [address] [id number] LAURA DOSSelf - patient is the [id number] 2023
--- OUTSIDE RECORDS SUMMARY | 2024-12-31 21:22 | XMS_ITS | Clinical Summary ---
Author Organization [employer] [facility] Address [id number] [place] [address] Care Team Providers Care Nurse Aide Name Role Phone Carloz Nelson MD Primary Care Provider [phone] Allergies Active AllergyReactionsCriticalityNoted DateCommentsAzithromycinItchingDede 12/23/2024 Medications MedicationSigDispense QuantityRefillsLast FilledStart DateEnd DateStatus PNV no.95/ferrous fum/folic ac ( ORAL) Take by mouth.Active magnesium oxide (MAGOX) 400 mg tablet Indications:Restless leg syndrome in ,Sleep disturbanceTake 1 tablet (400 mg total) by mouth nightly. 30 tablet 5Active Additional Information Patient not taking.Reported on 12/31/2024 acetaminophen (TYLENOL EXTRA STRENGTH) 500 mg tablet Indications: delivery delivered, care following deliveryTake 2 tablets (1,000 mg total) by mouth every 8 (eight) hours as needed for pain. 60 tablet 5Active docusate sodium (COLACE) 100 mg capsule Indications: delivery delivered, care following deliveryTake 1 capsule (100 mg total) by mouth 2 (two) times a day as needed for constipation. 10 capsule 5Active Additional Information Patient not taking.Reported on 12/31/2024 doxycycline (VIBRAMYCIN) 100 mg capsule Indications: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Take 1 capsule (100 mg total) by mouth in the morning and 1 capsule (100 mg total) before bedtime. Do all this for 7 days. 13 capsule 5Active Additional Information Patient not taking.Reported on 12/31/2024 ibuprofen (MOTRIN) 800 mg tablet Indications: delivery delivered, care following deliveryTake 1 tablet (800 mg total) by mouth every 8 (eight) hours as needed for pain. 30 tablet 5Active magnesium oxide (MAGOX) 400 mg tablet Indications:Restless leg syndrome in ,Sleep disturbanceTake 1 tablet (400 mg total) by mouth nightly. 30 tablet /Discontinued(Reorder) omeprazole (PriLOSEC) 20 mg capsule Take 1 capsule (20 mg total) by mouth in the morning. 30 capsule Discontinued(Therapy completed) Immunization, In Clinic, Indications: care, third trimesterInject 0.5 mL into the appropriate muscle once for 1 dose. Sign this order to satisfy the OSBOP Positive ID requirements for immunization orders.Expired oxyCODONE (ROXICODONE) 5 mg immediate release tablet Indications: delivery delivered, care following deliveryTake 1 tablet (5 mg total) by mouth every 6 (six) hours as needed for pain for up to 3 days. Max Daily Amount: 20 mg 12 tablet Expired Active Problems ProblemNoted DateDiagnosed DatePostpartum care following delivery 12/27/2024Lactating zktewy1012/27/2024esarean delivery bmutrqsqx62/30/2025arrier of ureaplasma zwbyfbhkhmg05/17/2025 Overview (12/11/2024): Discussed with Dr. Duncan who recommends azithromycin 500 mg IV every 24 hours in labor Migraine with aura and without status migrainosus, not hwanhygjlom68/15/2025 Overview (09/18/2024): Migraine with & without aura and syncope Neurology consult 09/08/24. MRI and EEG to rule our seizure disorder. Cardiac echo and consider remote cardiac monitoring for arrhythmias Resolved Problems ProblemNoted DateDiagnosed DateResolved DateEncounter for elective induction of laborIron deficiency eyodoj63/ weeks gestation of lnhpfwjcs59Iron deficiency anemia secondary to inadequate dietary iron cixfaq68 Overview (09/21/2024): Iron deficiency anemia, ferritin 6 and hgb 12.1 on 09/18/24. Start oral iron. Repeat CBC and iron studies in 4 weeks. Subclinical pbngmkrejpzzon64 Overview (09/29/2024): TSH high 7.8, T4 normal 0.65 on 09/18/24 Endocrinology referral 09/29/24: induced thyroid changes vs autoimmune hypothyroidism. Repeat thyroid every 4 weeks. F/U in 5 months. 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 MRI and EEG to rule our seizure disorder. 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; Pain at surgical incision; Excessive incisional edema, initial sbqydidas67/06/2025Telephone [facility] [address] [place] [phone] Shani Millan rmrcrg1412/30/20245775Qvlpdg15/30/2025 9:30 PM EDT - 12/24/2024 11:13 PM [facility] [address] [place] [address] Antwon Segura DO C-AEMELXE3512/24/2024 9:06 PM EDTAnesthesia Event [facility] LDRP [address] [place] [address] David Guadalupe DO Stull, Cyle, PLANT MAINTENANCE ENGINEER-MANUFACTURING ENGINEER 12/23/2024 5:28 PM EDT - 12/27/2024 12:35 PM ESTHospital Encounter [facility] [address] [place] [address] Joanie Sommer, PLANT MAINTENANCE ENGINEER-CNM Delicia Stoddard, PLANT MAINTENANCE ENGINEER-CNM delivery delivered (Primary Dx); 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; Restless leg syndrome in ; Sleep disturbance; 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; care following delivery Discharge Disposition: Home12/23/20249694Zqxibc57/27/2025 11:00 AM EDTRoutine [facility] [address] [place] [address] Sanjuanita Nguyen, PLANT MAINTENANCE ENGINEER-[place] CUTTER [place]: [id number]/26/2025Telephone [facility] [address] [place] [phone] Kati Sloan Back Pain (Contract: 129///)12/20/20247004Necjdw11/24/2025 1:10 PM EDT - 12/18/2024 11:59 PM EDTHospital Encounter [facility] [address] [place] [address] Sanjuanita Nguyen, PLANT MAINTENANCE ENGINEER-[place] CUTTER care, third trimester; Uterine size-date discrepancy in third trimester Discharge Disposition: Home12/18/2024 10:45 AM EDTRoutine [facility] [place] [address] Sanjuanita Nguyen, PLANT MAINTENANCE ENGINEER-[place] CUTTER GA: 42p1r9612/16/20246395Wkhiih23/17/2025 11:58 AM EDT - 12/11/2024 2:05 PM EDT Hospital Encounter [facility] LDR[facility] [address] [place] [address] Manjula Hardy, PLANT MAINTENANCE ENGINEER-CNM Karmen Hahn, DO 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 Discharge Disposition: Home12/11/2024 11:30 AM EDTRoutine [facility] [address] [place] [phone] Sanjuanita Nguyen, PLANT MAINTENANCE ENGINEER-[place] CUTTER [place]: [id number]/11/20246990Dfohbf77/16/9059Vcvkpn75/13/2025Results Follow-Up [facility] [address] [address] Ana Malhotra, RN Holter monitor 3-5 days12/07/2024Results Follow-Up [facility] [place] [address] Sanjuanita Nguyen, PLANT MAINTENANCE ENGINEER-[place] CUTTER Strep B screen, Urogenital Ureaplasma and Mycoplasma Species by PCR: Urine 12/03/2024 2:15 PM EDTRoutine [facility] [address] [place] [address] Sanjuanita Nguyen, PLANT MAINTENANCE ENGINEER-CHICKEN CUTTER GA: 18c3z6211/27/2024 9:30 AM EDT - 11/27/2024 11:59 PM EDTHospital Encounter [facility] Cardiovascular [address] [place] [address] Emmett Wilkinson MD Vasovagal syncope; Recurrent syncope Discharge Disposition: Home11/25/20242073Etuimu74/25/2025 2:30 PM EDTRoutine [facility] [address] [place] [address] [place]: 72q7c3511/19/2024Telephone [facility] [address] [place] [address] Ana Malhotra RN 11/18/20245898Jdqsjk55/23/2025 1:[address] [facility] - Medical Oncology [address] [place] [phone] Iron deficiency anemia, unspecified iron deficiency anemia type (Primary Dx); 28 weeks gestation of zcyuqoonu79/23/6071Eweyaf30/16/8602Uvrzol69/15/2025 9:00 AM EDTOffice Visit [facility] [address] [place] [address] Emmett Wilkinson MD Vasovagal syncope (Primary Dx); Recurrent zpkxqdh3011/06/2024 10:45 AM EDTRoutine [facility] [address] [place] [address] Sanjuanita Nguyen, PLANT MAINTENANCE ENGINEER-[place]ICK[place] CUTTER GA: 58q5v5111/06/20247986Bhqrha81/08/9367Npzpcq45/02/2025 1:[address] [facility] - Medical Oncology [address] [place] [phone] Iron deficiency anemia, unspecified iron deficiency anemia type (Primary Dx); 28 weeks gestation of uvecwqjmw81/02/6460Jnbaut85/29/2025 10:00 AM EDTRoutine [facility] [address] [place] [phone] Sanjuanita Nguyen, PLANT MAINTENANCE ENGINEER-[place] CUTTER [place]: 99t0z2310/23/2024Results Follow-Up [facility] [address] [place] [phone] Nettie Lees, PLANT MAINTENANCE ENGINEER-CNM CBC auto differential, Iron and TIBC, Lprnlimk64/28/4028Daqfrt35/25/2025Travel 10/19/2024Telephone [facility] [address] [place] [phone] Lucinda Nunez, [facility] 10/16/2024 2:[address]y [address] [facility] - Medical Oncology [address] [place] [phone] Iron deficiency anemia, unspecified iron deficiency anemia type (Primary Dx); 28 weeks gestation of amxjvpqcd76/21/2025Telephone [facility] [address] [place] [phone] Sandra Lynn, [facility] 10/15/20244696Zanrng68/20/2025Results Follow-Up [facility] [address] [place] [phone] Delicia Araujo, PLANT MAINTENANCE ENGINEER-[place] CUTTER Urogenital Ureaplasma and Mycoplasma Species by PCR: Urine10/13/2024 1:30 PM EDT Infusion Jessy Eaton [facility] - Medical Oncology [address] [place] [phone] 28 weeks gestation of (Primary Dx); Iron deficiency anemia, unspecified iron deficiency anemia type10/13/2024 Telephone [facility] [address] [place] [address] Manjula Hardy, PLANT MAINTENANCE ENGINEER-CNM 10/13/2024Telephone [facility] [address] [place] [phone] GuadalupeYanet Pelvic Pain10/13/20245896Wcitps13/15/2025 9:45 AM EDTRoutine [facility] [address] [place] [address] Delicia Araujo, PLANT MAINTENANCE ENGINEER-[place] CUTTER GA: 26h6s4410/09/20243449Xfboin48/13/8323Tffksz51/06/2025Results Follow-Up [facility] [address] [place] [address] Alice Michel MD Thyroid profile includes TSH FT4, Thyroid antibodies includes TPO and TGABfrom Last 3 Months Immunizations ImmunizationAdministration DatesNext DueDTP / HiB10/22/1995,1994, 1994HPV Vlptvtyvvjnb88/14/2008Hep B, Cfgjeksaidx75/04/1998,1994, 1994,1994MMR09/17/2023,10/22/1995OPV10/22/1995,1994,1994 RSV, bivalent, protein subunit RSVpreF, diluent reconstituted, 0.5 mL, PF 12/03/2024Tdap1 Family History Medical HistoryRelationNameCommentsLupusMotherMigrainesMotherLupusSisterAutism Neg HxBleeding DisorderNeg HxClotting disorderNeg HxCongenital heart diseaseNeg HxDevelopmental delayNeg HxSudden deathNeg HxRelationNameStatusCommentsMother SisterDeceased Social History Tobacco UseTypesPacks/DayYears UsedDateSmoking Tobacco: NeverPassive Smoke Exposure: NeverSmokeless Tobacco: Never Tobacco Cessation:Counseling Given: Not Answered Alcohol UseStandard Drinks/WeekCommentsNot Currently0 (1 standard drink = 0.6 oz pure alcohol)PHQ-2AnswerDate RecordedTotal Cwume795/06/2025AUDIT-CAnswerDate RecordedQ1: How often do you have a drink containing alcohol?Never12/31/2024Q2: How many drinks containing alcohol do you have on a typical day when you are drinking?Patient does not drink12/31/2024Q3: How often do you have six or more drinks on one occasion?Never12/31/2024Overall Financial Resource Strain (CARDIA) AnswerDate RecordedHow hard is it for you to pay for the very basics like food, housing, medical care, and heating?Not very hard12/31/2024PRAPARE - TransportationAnswerDate RecordedIn the past 12 months, has lack of transportation kept you from medical appointments or from getting medications?No 12/23/2024In the past 12 months, has lack of transportation kept you from meetings, work, or from getting things needed for daily living?No12/23/2024 Ravenel Depression ScaleAnswerDate RecordedEdinburgh Depression Scale Cpcdk87203/01/2024The thought of harming myself has occurred to me.Never12/30/2024Housing InstabilityAnswerDate RecordedAre you worried or concerned that in the next two months you may not have stable housing that you own, rent or stay in as a part of a household?No12/23/2024hildcareAnswerDate RecordedDo problems getting child care nurse make it difficult for you to work or study?No12/31/2024EmploymentAnswerDate YhccyzotOeisriwuhzOlrdqoh31/11/2019Hunger ScreeningAnswerDate RecordedWithin the past 12 months we worried whether our food would run out before we got money to buy more.Never True12/31/2024Within the past 12 months the food we bought just didn't last and we didn't have money to get more.Never True12/31/2024CommentsNoSex and Gender Information ValueDate RecordedSex Assigned at HptozAupquc83/09/2025 6:08 PM EDTLegal Sex Ilpkmt9509/28/2014 8:25 PM EDTGender EvcairggSmjjls33/09/2025 6:07 PM EDTSexual OrientationChoose not to ehmtkvoi60/09/2025 6:07 PM EDT Last Filed Vital Signs Vital SignReadingTime TakenCommentsBlood Cxfedjty914/8612/31/2024 3:55 PM EST Lfmbh916412/27/2024 9:55 AM SVFGdmsgpdwstp06.8 ??C (98.2 ??F)12/31/2024 3:55 PM ESTRespiratory Vrgf536802/27/2024 9:55 AM ESTOxygen Wkpcntrevn17%11/17/2024 1:13 PM EDTInhaled Oxygen Concentration--Haxsny21.3 kg (144 lb)12/31/2024 3:55 PM EST Xufhpr054.1 cm (5' 5 )12/31/2024 3:55 PM ESTBody Mass Index23.9612/31/2024 3:55 PM EST Plan of Treatment DateTypeDepartmentCare Team (Latest Contact Info)Vjnglflkujc85/22/2025 9:00 AM ESTOffice Visit [facility] [address] [facility] [address] [place] [address] Nigel Kincaid MD [address] [place] [address] 03/01/2025 10:00 AM ESTOffice Visit [facility] [place] [facility] [address] [place] [address] Alice Michel MD [address] [place] [address] Health MaintenanceDue DateLast DoneCommentsCOVID-19 Vaccine ( season) /12/2023Influenza Krcyekh5310/26/2024dult BMI Wyhjadnoq40/06/2026 12/31/2024Depression Cxldqyrin99, 12/30/2024Tobacco Screening Pap Smear/, 05/20/2024DTaP,Tdap and Td Vaccines (5 - Td or Tdap), 10/22/1995, 1994, Additional history existsRSV ( or age 60+ yrs)Csrjvvsqxgda28/09/2025 Medical Devices Not on file Procedures Procedure NamePriorityDate/TimeAssociated DiagnosisCommentsCBC (NO DIFF)Routine 12/25/2024 5:25 AM EDT ANESTHESIA SPINAL EBWGVGzktsaf17/30/2025 9:27 PM EDT C-IHGYUID8812/24/2024 9:05 PM EDT Intolerance of Labor Other (Add Comments) Case Notes maternal decision EXTRA TUBES PST EDESelvlvz51/29/2025 5:52 PM EDT TYPE AND GCCNBQPVEV61/29/2025 5:52 PM EDT EXTRA DYLMJBjewxph05/29/2025 5:52 PM EDT CBC (NO DIFF)STAT1 5:52 PM EDT SYPHILIS TOTAL(UNKNOWN SYPHILIS STATUS)Mvgzgzv1512/23/2024 5:52 PM EDT US PREG TRANSABD FU PER YLLBNyggjco33/24/2025 2:31 PM EDT care, third trimester Uterine size-date discrepancy in third trimester PROTEIN CREAT FEUEMYYLU19/17/2025 1:06 PM EDT VDDRVNYIZDDZKB42/17/2025 1:06 PM EDT CBC (NO DIFF)STAT1 12:38 PM EDT ZQZIUBS2612/11/2024 12:38 PM EDT URIC QORCVSSA12/17/2025 12:38 PM EDT COMPREHENSIVE METABOLIC JPIJMWKAZ64/17/2025 12:38 PM EDT UROGENITAL UREAPLASMA AND MYCOPLASMA SPECIES BY QKBJgggwzq99/09/2025 4:13 PM EDT 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 STREP B YGIOWDDkphajx69/09/2025 3:07 PM EDT care, third trimester HOLTER MONITOR 3-5 TWXQQcaiukd66/03/2025 11:22 AM EDT Vasovagal syncope Recurrent syncope POCT PLMNmppvks79/15/2025 Vasovagal syncope GXMQNYMDBxmopxy42/28/2025 10:16 AM EDT Iron deficiency anemia secondary to inadequate dietary iron intake IRON AND JATSBftykjc60/28/2025 10:16 AM EDT Iron deficiency anemia secondary to inadequate dietary iron intake CBC WITH AUTO VHGDLVNXIMLZZipwrvd83/28/2025 10:16 AM EDT Iron deficiency anemia secondary to inadequate dietary iron intake UROGENITAL UREAPLASMA AND MYCOPLASMA SPECIES BY QTOZxdwebi36/15/2025 10:21 AM EDT 28 weeks gestation of 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 ComponentValueRef RangeTest MethodAnalysis TimePerformed AtPathologist Signature WBC14.6(H)4 - 11 x10E9/L1 5:51 AM EDTPGALION HOSPITALRBC Count3.813.8 - 5.2 X10E12/L1 5:51 AM EDKETTERING HEALTH PREBLEHemoglobin11.3(L)11.7 - 15.5 g/dL12/25/2024 5:[address] [facility]OSPITALHematocrit33.5(L)35 - 47 %12/25/2024 5:51 AM EDKETTERING HEALTH PREBLEMCV8880 - 100 fL12/25/2024 5:51 [address] EDT [facility]PITALMCH29.827 - 34 pg12/25/2024 5:51 [address] ED[address] [facility]ITALMCHC33.932 - 36 g/dL12/25/2024 5:51 AM EDT [facility] HOSPITALRDW15.011.5 - 15 %12/25/2024 5:51 [address] ED[address] [facility] HOSPITALPlatelet Lmven216112 - 450 X10E9/L1 5:51 AM EDTPGALION HOSPITALMPV9.97 - 12 fL12/25/2024 5:51 AM [facility]ITALpecimen (Source)Anatomical Location / LateralityCollection Method / VolumeCollection TimeReceived TimeBloodVenous blood / UnknownVenipuncture / Ozkksra8812/25/2024 5:25 AM EDT1 5:39 AM EDT Narrative Authorizing ProviderResult TypeResult StatusStephanie A Richi PLANT MAINTENANCE ENGINEER-CNMLAB BLOOD ORDERABLESFinal ResultPerforming OrganizationAddressCity/State/ZIP CodePhone Number [facility] [address] [place] [address], * Spinal Block (12/24/2024 9:27 PM EDT) Narrative Ryan Carrillo APRN-MANUFACTURING ENGINEER - 12/24/2024 9:27 PM EDT Ryan Carrillo APRN-MANUFACTURING ENGINEER 12/24/2024 9:27 PM Spinal Block Patient Location: [...] Location: ??L2-L3 Injection Technique: ??Single-Shot Placement Technique: [place] Technique ?? Dose: ??3 mL Needle: Needle Type: ??Pencan/Atraucan Needle Gauge: ??24 G Anesthesia Block Medication Given: ouhqnhbwwnl-rvchzljo-uecyl(PF) (MARCAINE SPINAL) 0.75 % (7.5 mg/mL) injection - intrathecal 1.8 mL - 12/24/2024 9:13:00 PM morphine PF (DURAMORPH) injection 1 mg/mL - intrathecal 0.15 mg - 12/24/2024 9:12:00 PM Number of Attempts: ??1 CSF Comment: ??Clear Free-Flowing CSF Assessment: Sensory Level: ??T6 Injection Assessment: ??No Paresthesia on Injection and No Pain on Injection Authorizing ProviderResult TypeResult StatusVern D Guadalupe DOANESTHESIA ORDERABLESFinal Result * PST TOP (12/23/2024 5:52 PM EDT)ComponentValueRef RangeTest MethodAnalysis TimePerformed AtPathologist SignatureExtra TubeAuto Usfhryct51/29/2025 7:01 PM EDTPROMEDICA SETON MEDICAL CENTERpecimen (Source)Anatomical Location / LateralityCollection Method / VolumeCollection TimeReceived TimeBloodVenous blood / Rbwxdjm9912/23/2024 5:52 PM EDT1 6:12 PM EDT Narrative Authorizing ProviderResult TypeResult StatusKatehsangermain Sommer PLANT MAINTENANCE ENGINEER-CNMLAB BLOOD ORDERABLESFinal ResultPerforming OrganizationAddressCity/State/ZIP CodePhone Number [facility] [address] [place] [address], * Syphilis Total (Unknown Syphilis Status) (12/23/2024 5:52 PM EDT)Component ValueRef RangeTest MethodAnalysis TimePerformed AtPathologist Signature SYPHILIS TOTAL<0.2<=0.8 AI12/24/2024 1:01 PM EDMCCULLOUGH-HYDE MEMORIAL [facility] LABORATORYSpecimen (Source)Anatomical Location / LateralityCollection Method / VolumeCollection TimeReceived TimeBloodVenous blood / UnknownVenipuncture / Xmlercm8212/23/2024 5:52 PM EDT1 6:12 PM EDT Narrative [facility] - 12/24/2024 1:01 PM EDT NON REACTIVE No serologic evidence of infection to Treponema pallidum. Repeat testing may be considered in patients with suspected acute or primary syphilis in 2 to 4 weeks. Authorizing ProviderResult TypeResult StatusAnnjaycob Sommer PLANT MAINTENANCE ENGINEER-CNMLAB BLOOD ORDERABLESFinal ResultPerforming OrganizationAddressCity/State/ZIP CodePhone Number [facility] [address] [place] [address], [place] [phone] * Type and screen(includes indirect callie) (12/23/2024 5:52 PM EDT)Component ValueRef RangeTest MethodAnalysis TimePerformed AtPathologist SignatureABOAB 12/23/2024 7:22 PM EDTFRE BB - SRVFLDTGJRbfrcycg15/29/2025 7:22 PM EDTFRE BB - WELLSKYAntibody VblsujSgcqkgxp32/29/2025 7:22 PM EDTFRE BB - WELLSKYSpecimen (Source)Anatomical Location / LateralityCollection Method / VolumeCollection TimeReceived TimeBloodVenous blood / UnknownVenipuncture / Dnjxvid6412/23/2024 5:52 PM EDT1 6:12 PM EDT Narrative Authorizing ProviderResult TypeResult StatusJoanie Sommer PLANT MAINTENANCE ENGINEER-CNMBLOOD BANK TEST ORDERABLESEdited Result - FinalPerforming OrganizationAddressCity/State/ZIP CodePhone Number [facility]URIC[facility] MERINO [address] [place] [address], [place] * Ultrasound transabdominal follow up per fetus [...] on 12/21/2024 10:26 AM Authorizing ProviderResult TypeResult StatusSanjuanita Nguyen PLANT MAINTENANCE ENGINEER-CNPIMG ORDERABLESFinal Result * Protein creat ratio (12/11/2024 1:06 PM EDT)ComponentValueRef RangeTest Method Analysis TimePerformed AtPathologist SignatureURINE PROTEIN, RANDOM (MG/L)80 <120 mg/L1 1:30 PM EDKETTERING HEALTH PREBLEURINE CREATININE,RDM62.56mg/dL12/11/2024 1:30 PM [facility]U/PRO/STAFF TRAINING AND DEVELOPMENT MANAGER RATIO CALC0.13<=0. 1:30 PM [facility]IN CAMPUSComment:Urine Protein / Creatinine Ratio not calculated due to non-numeric component.Specimen (Source)Anatomical Location / Laterality Collection Method / VolumeCollection TimeReceived TimeUrineUrine specimen collection, clean catch / Xxsnkmw8712/11/2024 1:06 PM EDT1 1:11 PM EDT Narrative [facility] - 12/11/2024 1:30 PM EDT Nephrotic Syndrome is associated with ratios >3.5 Authorizing ProviderResult TypeResult StatusGaylcarla Hardy PLANT MAINTENANCE ENGINEER-CNMURINE ORDERABLESFinal ResultPerforming OrganizationAddressCity/State/ZIP CodePhone Number [facility] [address] [place] [address], * (ABNORMAL) Urinalysis (12/11/2024 1:06 PM EDT)ComponentValueRef RangeTest MethodAnalysis TimePerformed AtPathologist SignatureCOLORYellowYellow 12/11/2024 1:29 PM EDKETTERING HEALTH PREBLETURBIDITYCloudy(A) Clear12/11/2024 1:29 PM [facility]ITALPECIFIC GRAVITY 1.0201.003 - 1.5975712/11/2024 1:29 PM EDKETTERING HEALTH PREBLE AUPLPAZAiyhkboiQmlefhmc55/17/2025 1:29 PM [facility]AMPUSPH,URINE6.05.0 - 8.510 1:29 PM [facility]IN CAMPUSLEUKOCYTE EPBEYKNEWardlaqbRfdhpaym95/17/2025 1:29 PM EDKETTERING HEALTH PREBLEPROTEINNegativeNegative12/11/2024 1:[address] HOSPITALKETONES (URINE)EgohbkwzRpnqwsdn53/17/2025 1:29 PM EDK[facility] PREBLEUROBILINOGEN0.2 eu/dL0.2 eu/dL, 1.0 eu/dL12/11/2024 1:29 PM EDK[facility] PREBLEBILIRUBIN (URINE)NgyhlzimRzdmpjdf24/17/2025 1:29 PM EDK[facility] PREBLEBLOOD/NZXYtnoxrzvQeozrjvu51/17/2025 1:29 PM EDK[facility] PREBLEAMORPHOUS SEDIMENTPresent(A)None12/11/2024 1:[address] [facility]ITALR.B.CELLS10 - 510 1:29 PM EDT [facility]QUAM[facility] EPITHELIUM>27(H)0 - 1:29 PM EDK[facility] PREBLEW.B.CELLS40 - 510 1:29 PM EDKETTERING [facility]ALTH PREBLEGLUCOSE (URINE)NegativeNegative, 250 mg/dL12/11/2024 1:29 PM EDTPUNIVERSITY HOSPITALS HEALTH SYSTEMpecimen (Source)Anatomical Location / LateralityCollection Method / VolumeCollection TimeReceived TimeUrineUrine / Cvcgmob3812/11/2024 1:06 PM EDT1 1:11 PM EDT Narrative Authorizing ProviderResult TypeResult Giselle Hardy APRN-CNMURINE ORDERABLESFinal ResultPerforming OrganizationAddressCity/State/ZIP CodePhone Number [facility] [address] [place] [address], * (ABNORMAL) LDH (12/11/2024 12:38 PM EDT)ComponentValueRef RangeTest Method Analysis TimePerformed AtPathologist LwbmvqoeuIZN56(L)100 - 235 U/L1 1:15 PM [facility] (Source)Anatomical Location / LateralityCollection Method / VolumeCollection TimeReceived Time BloodVenous blood / UnknownVenipuncture / Lffmigj5712/11/2024 12:38 PM EDT 12/11/2024 12:56 PM EDT Narrative Authorizing ProviderResult TypeResult StatusManjula Hardy APRN-CNMLAB BLOOD ORDERABLESFinal ResultPerforming OrganizationAddressCity/State/ZIP CodePhone Number [address] [address], * Uric acid (12/11/2024 12:38 PM EDT)ComponentValueRef RangeTest MethodAnalysis TimePerformed AtPathologist SignatureURIC ACID4.32.6 - 7.2 mg/dL12/11/2024 1:15 PM EDTPUNIVERSITY HOSPITALS HEALTH SYSTEMpecimen (Source)Anatomical Location / LateralityCollection Method / VolumeCollection TimeReceived Time BloodVenous blood / UnknownVenipuncture / Hzbdulz6412/11/2024 12:38 PM EDT 12/11/2024 12:56 PM EDT Narrative Authorizing ProviderResult TypeResult StatusManjula Hardy PLANT MAINTENANCE ENGINEER-CNMLAB BLOOD ORDERABLESFinal ResultPerforming OrganizationAddressCity/State/ZIP CodePhone Number [address] [place] [address], * (ABNORMAL) Comprehensive metabolic panel (12/11/2024 12:38 PM EDT)Component ValueRef RangeTest MethodAnalysis TimePerformed AtPathologist SignatureSODIUM 297178 - 146 mmol/L1 1:15 PM EDK[facility]BLE POTASSIUM3.73.5 - 5.0 mmol/L1 1:15 PM EDTPGALION HOSPITALCHLORIDE10798 - 109 mmol/L1 1:15 PM EDTPGALION HOSPITALCARBON QJJJGEM96(L)22 - 32 mmol/L1 1:[address] [facility]ITALANION MDJ906 - 15 mmol/L1 1:15 PM EDTPGALION HOSPITALBLOOD UREA GHYGYUNO17 - 23 mg/dL 12/11/2024 1:15 PM EDKETTERING [facility] PREBLECREATININE0.520.40 - 1.00 mg/dL12/11/2024 1:15 PM EDKETTERING HEALTH PREBLEComment: METHOD TRACEABLE TO IDMS YMKYIEFFEMUWVNU8525 - 99 mg/dL12/11/2024 1:[address] [facility]OS[facility]ITALCALCIUM9.48.5 - 10.5 mg/dL12/11/2024 1:15 PM [facility] CAMPUSTOTAL PROTEIN6.46.0 - 8.0 g/dL 12/11/2024 1:15 PM [facility] CAMPUSALBUMIN2.8(L)3.2 - 5.3 g/dL12/11/2024 1:15 PM [facility] CAMPUSALKALINE AOAWRAHOVRW4336 - 130 U/L1 1:15 PM [facility]USAST13<=41 U/L1 1:15 PM [facility] ALT10<=31 U/L1 1:15 PM [facility] BILIRUBIN,TOTAL0.50.3 - 1.2 mg/dL12/11/2024 1:15 PM [facility] CAMPUSEGFR Non-Race Dependent>90>=60 ml/min/1.73sq.m1 1:15 PM [facility] CAMPUSComment: eGFR not reported due to non-numeric value for Creatinine. Reported eGFR is based on the CKD-EPI 2020 equation that does not use a race coefficient. Specimen (Source)Anatomical Location / LateralityCollection Method / Volume Collection TimeReceived TimeBloodVenous blood / UnknownVenipuncture / Unknown 12/11/2024 12:38 PM EDT1 12:56 PM EDT Narrative Authorizing ProviderResult TypeResult StatusGasixto Hardy PLANT MAINTENANCE ENGINEER-CNMLAB BLOOD ORDERABLESFinal ResultPerforming OrganizationAddressCity/State/ZIP CodePhone Number [facility] [address] [place] [address], * (ABNORMAL) Urogenital Ureaplasma and Mycoplasma Species by PCR: Urine (12/03/2024 4:13 PM EDT) Only the most recent of2 resultswithin the time period is included. ComponentValueRef RangeTest MethodAnalysis TimePerformed AtPathologist Signature UREAPLASMA AND MYCOPLASMA UNORQZOmnae29/13/2025 11:24 AM EDTAR[facility]IES UREAPLASMA PARVUMNot Ulfoqvnm05/13/2025 11:24 AM EDTARUP LABORATORIESUREAPLASMA UREALYTICUMDetected(A)12/07/2024 11:24 AM EDTARUP LABORATORIESMYCOPLASMA HOMINIS Not Mcwrmadz81/13/2025 11:24 AM EDTARUP LABORATORIESMYCOPLASMA GENITALIUMNot Vbzhhuaz08/13/2025 11:24 AM EDTARUP LABORATORIESComment: INTERPRETIVE INFORMATION: Urogenital Ureaplasma and ?Mycoplasma Species by PCR A negative result does not rule out the presence of PCR inhibitors in the patient specimen or test-specific nucleic acid in concentrations below the level of detection by this test. This test was developed and its performance characteristics determined by [employer]. It has not been cleared or approved by the [place] Food and Drug Administration. This test was performed in a CLIA certified laboratory and is intended for clinical purposes. Performed By: [employer] [address] [place] [address] Food Production Associate: Thomas Ramirez MD, PhD CLIA Number: [id number] Specimen (Source)Anatomical Location / LateralityCollection Method / Volume Collection TimeReceived TimeUrineUrine / Tucymas8212/03/2024 4:13 PM EDT1 4:13 PM EDT Narrative Authorizing ProviderResult TypeResult StatusLisa M Wendy PLANT MAINTENANCE ENGINEER-CNPURINE ORDERABLESFinal ResultPerforming OrganizationAddressCity/State/ZIP CodePhone Number [facility] [employer] [address] [place] [address], * Strep B screen (12/03/2024 3:07 PM EDT)ComponentValueRef RangeTest Method Analysis TimePerformed AtPathologist SignatureCULTURE RESULTSNEGATIVE FOR GROUP B STREPTOCOCCUS BY NUCLEIC ACID LFAWMYCRSYGCK52/10/2025 11:55 PM EDT [facility]pec[facility] (Source)Anatomical Location / LateralityCollection Method / VolumeCollection TimeReceived TimeSwab (Vagina/Rectum)12/03/2024 3:07 PM EDT1 3:07 PM EDT Narrative Authorizing ProviderResult TypeResult StatusSanjuanita Nguyen PLANT MAINTENANCE ENGINEER-CNPMICROBIOLOGY - GENERAL ORDERABLESFinal ResultPerforming OrganizationAddressCity/State/ZIP CodePhone Number [facility] [address] [place] [address], * Holter monitor 3-5 days (11/27/2024 11:22 AM EDT)Anatomical RegionLaterality ModalityChestN/AOtherSpecimen (Source)Anatomical Location / Laterality Collection Method / VolumeCollection TimeReceived Time Narrative 12/07/2024 11:53 AM EDT Primary rhythm was sinus rhythm with average heart rate 91, minimum 60, max 186 SVE burden 6.02%, arrhythmia 1 event that was 3 beats associated with 186 beats per minute maximum heart rate, PVC burden 0.02% Patient had 3 recorded events, 1 event tachycardia but appears to have possible PAC, the other 2 events were associated with sinus tachycardia Authorizing ProviderResult TypeResult Jet Wilkinson [facility] ORDERABLESFinal Result * POCT EKG (11/09/2024)Specimen (Source)Anatomical Location / Laterality Collection Method / VolumeCollection TimeReceived Time11/09/2024 Narrative Authorizing ProviderResult TypeResult Jet Wilkinson [facility] ORDERABLESFinal ResultPerforming OrganizationAddressCity/State/ZIP CodePhone Number MANUALLY TRANSCRIBED RESULTS * CBC auto differential (10/22/2024 10:16 AM EDT)ComponentValueRef RangeTest MethodAnalysis TimePerformed AtPathologist SignatureWBC8.64 - 11 x10E9/L 10/22/2024 1:53 PM [facility] LABORATORYRBC Count4.063.8 - 5.2 X10E12/L10/22/2024 1:53 PM [facility] Tsomtmquhd70.811.7 - 15.5 g/dL10/22/2024 1:53 PM [facility] TKOQELDUVQYgpuajnyzy57.435 - 47 %10/22/2024 1:53 PM [facility] BCADOQDWEODQB5630 - 100 fL10/22/2024 1:53 PM [facility] FOWMKRYPSVTMN83.027 - 34 pg10/22/2024 1:53 PM [facility] EWECVPDNDTUDMZ01.332 - 36 g/dL10/22/2024 1:53 PM [facility] LCPNWOIGOYKLR83.811.5 - 15 %10/22/2024 1:53 PM [facility] LABORATORYPlatelet Fguoj365186 - 450 X10E9/L10/22/2024 1:53 PM [facility] LABORATORYMPV9.87 - 12 fL10/22/2024 1:53 PM [facility] LABORATORYNeutrophils %67.9%10/22/2024 1:53 PM [facility] LABORATORYLymphocytes %22.7%10/22/2024 1:53 PM [facility] LABORATORYMonocytes %6.6%10/22/2024 1:53 PM [facility] LABORATORYEosinophils %2.0%10/22/2024 1:53 PM [facility] LABORATORYBasophils %0.8%10/22/2024 1:53 PM [facility] LABORATORYNeutrophils Absolute (A)5.81.5 - 6.6 10*3/uL 10/22/2024 1:53 PM [facility] LABORATORYLymphocytes Absolute 2.01.0 - 3.5 10*3/uL10/22/2024 1:53 PM [facility] Monocytes Absolute0.60.0 - 0.9 10*3/uL10/22/2024 1:53 PM [facility] LABORATORYEosinophils Absolute0.20.0 - 0.4 10*3/uL10/22/2024 1:53 PM [facility] LABORATORYBasophils Absolute0.10.0 - 0.2 10*3/uL 10/22/2024 1:53 PM [facility] LABORATORYDifferential Type AUTOMATED AUCWZSLXNMTD34/28/2025 1:53 PM [facility] LABORATORYSpecimen (Source)Anatomical Location / LateralityCollection Method / VolumeCollection TimeReceived TimeBloodVenous blood / UnknownVenipuncture / Udjxczp4110/22/2024 10:16 AM EDT10/22/2024 10:16 AM EDT Narrative Authorizing ProviderResult TypeResult StatusLena Darell Lees PLANT MAINTENANCE ENGINEER-CNMLAB BLOOD ORDERABLESFinal ResultPerforming OrganizationAddressCity/State/ZIP CodePhone Number [facility] [address] [place] [address], [place] [phone] * (ABNORMAL) Iron and TIBC (10/22/2024 10:16 AM EDT)ComponentValueRef RangeTest MethodAnalysis TimePerformed AtPathologist TxpjqfxiwKOCJ13961 - 170 ug/dL 10/22/2024 2:15 PM [facility] FHLVUCWKTKETKZJBZKQCA532882 - 336 mg/dL10/22/2024 2:15 PM [facility] LABORATORYIRON BINDING 431(H)250 - 425 ug/dL10/22/2024 2:15 PM [facility] IRON FZCBHBPYPC2781 - 50 % KVWPITGXOB81/28/2025 2:15 PM [facility] LABORATORYSpecimen (Source)Anatomical Location / LateralityCollection Method / VolumeCollection TimeReceived TimeBloodVenous blood / Unknown Venipuncture / Hymiyzk7210/22/2024 10:16 AM EDT10/22/2024 10:16 AM EDT Narrative Authorizing ProviderResult TypeResult StatusLena Darell Lees PLANT MAINTENANCE ENGINEER-CNMLAB BLOOD ORDERABLESFinal ResultPerforming OrganizationAddressCity/State/ZIP CodePhone Number [facility] [address] [place] [address], [place] [phone] * Ferritin (10/22/2024 10:16 AM EDT)ComponentValueRef RangeTest MethodAnalysis TimePerformed AtPathologist CbetoykkbKAWLRWPK87231 - 307 ng/mL10/22/2024 2:25 PM [facility] LABORATORYSpecimen (Source)Anatomical Location / LateralityCollection Method / VolumeCollection TimeReceived TimeBloodVenous blood / UnknownVenipuncture / Unzstat5010/22/2024 10:16 AM EDT10/22/2024 10:16 AM EDT Narrative Authorizing ProviderResult TypeResult StatusErvincarla Lees PLANT MAINTENANCE ENGINEER-CNMLAB BLOOD ORDERABLESFinal ResultPerforming OrganizationAddressCity/State/ZIP CodePhone Number [facility] [address] [facility] [address] [place] [address], * High risk HPV w/israel (05/20/2024 4:06 AM EDT)ComponentValueRef RangeTest MethodAnalysis TimePerformed AtPathologist SignatureHpv specimen typeThinPrep 05/21/2024 4:06 AM [facility] 16NegativeNegative^Negative 05/22/2024 7:08 AM [facility] LABHpv 18Negative Negative^Vqukedjv71/28/2025 7:08 AM [facility] LABOther high risk hpvNegativeNegative^Rtstamvy36/28/2025 7:08 AM [facility] LABComment: HPV types 31,33,35,39,45,52,56,58,59,66 and 68 DNA were undetectable. Specimen (Source)Anatomical Location / LateralityCollection Method / Volume Collection TimeReceived PpyrAZHYJ01/26/2025 4:06 AM EDT05/20/2024 4:26 AM EDT Narrative Authorizing ProviderResult TypeResult StatusSanjuanita Nguyen PLANT MAINTENANCE ENGINEER-CNPLAB BLOOD ORDERABLESFinal ResultPerforming OrganizationAddressCity/State/ZIP CodePhone Number [address] [place] [address] [facility] [address] [facility] [place] [address] from Last 3 Months or Most Recently Relevant to Health Maintenance Insurance Advance Directives * Full Code (Latest Code Status on File) Date ActivatedDate TpajvmwwyqwTldjzwhn83/29/2025 5:39 PM12/27/2024 8:16 PM Care Teams Team MemberRelationshipSpecialtyStart DateEnd Date Carloz Nelson MD [address] [facility], [address] [address] PCP - GeneralInternal Rhcmyeqo38/30/24
[2024-12-31] MEDS: OXYCODONE HCL/ACETAMINOPHEN 5MG/325MG 1 TAB PO ×3 (21:23→22:40)
--- OUTSIDE RECORDS SUMMARY | 2024-12-31 21:23 | XMS_ITS | Encounter Summary ---
Author Organization Care Thread tem Address [id number] [address] [place] [address] Care Team Providers Care Tour Consultant Name Role Phone Carloz Nelson MD Primary Care Provider [phone] Encounter Details DateTypeDepartmentCare Team (Latest Contact Info)Rhtwkwiwdro03/29/2025Travel Social History Tobacco UseTypesPacks/DayYears UsedDateSmoking Tobacco: NeverPassive [...] a part of a household?No12/23/2024hildcareAnswerDate RecordedChildcareUnknown 08/05/2018EmploymentAnswerDate TleahxhtXcytwanpwyXveqaxx69/11/2019Hunger ScreeningAnswerDate RecordedWithin the past 12 months we worried whether our food would run out before we got money to buy more.Never True12/23/2024Within the past 12 months the food we bought just didn't last and we didn't have money to get more.Never True12/23/2024CommentsYesSex and Gender Information ValueDate RecordedSex Assigned at EmfloJrwrdt68/09/2025 6:08 PM EDTLegal Sex Lpplaj3709/28/2014 8:25 PM EDTGender NismnoyjSkjwer43/09/2025 6:07 PM EDTSexual OrientationChoose not to yubazfmb46/09/2025 6:07 PM EDTdocumented as of this encounter Functional Status documented as of this encounter Plan of Treatment DateTypeDepartmentCare Team (Latest Contact Info)Fwmxrgywwat78/22/2025 9:00 AM ESTOffice Visit [facility] [address] [facility] [address] [place] [phone] Nigel Kincaid MD [address] [place] [address] 03/01/2025 10:00 AM ESTOffice Visit [facility] [address] [place] [address] Alice Michel MD [address] [place] [address] documented as of this encounter Visit Diagnoses Not on filedocumented in this encounter Additional Health Concerns AssessmentNoted TimeA Body Mass Index follow-up plan has been documented for the ioxjulm5109/08/2024 11:31 AM EDTdocumented as of this encounter Care Teams Team MemberRelationshipSpecialtyStart DateEnd Date Carolz Nelson MD [address], [facility] [address] [place] [address] PCP - GeneralInternal Ptwmxpuf31/30/24documented as of this encounter
--- OUTSIDE RECORDS SUMMARY | 2024-12-31 21:23 | XMS_ITS | Encounter Summary ---
Author Organization [employer] [facility] tem Address [id number] [address] [place] [address] Care Team Providers Care Billet Bed Operator Name Role Phone Carloz Nelson MD Primary Care Provider [phone] Reason for Visit * ReasonOnset DateCommentsBack Pain12/20/2024ontract: 129 Encounter Details DateTypeDepartmentCare Team (Latest Contact Info)Jxpbutwfenx26/26/2025Telephone [facility] [address] [place] [phone] Sloan, Kati Back Pain (Contract: 129///) Social History Tobacco UseTypesPacks/DayYears UsedDateSmoking Tobacco: NeverPassive [...] from medical appointments or from getting medications?Patient gxoduldt84/21/2025In the past 12 months, has lack of transportation kept you from meetings, work, or from getting things needed for daily living?Patient khtbvrur34/21/2025UDIT-CAnswerDate RecordedQ1: How often do you have a [...] in as a part of a household?Patient Ddvceupa98/21/2025 ChildcareAnswerDate AqqtpdxtMlkdhqpleWvyuvot59/11/2019EmploymentAnswerDate OlruuijaSmfrxvioopMubmfjd33/11/2019Hunger ScreeningAnswerDate RecordedWithin the past 12 months we worried whether our food would run out before we got money to buy more.Never True12/21/2024Within the past 12 months the food we bought just didn't last and we didn't have money to get more.Never True12/21/2024 CommentsYesSex and Gender InformationValueDate RecordedSex Assigned at Bzvljg8905/03/2024 6:08 PM EDTLegal JliHkbvul93/04/2015 8:25 PM EDTGender Identity Gplkbk1405/03/2024 6:07 PM EDTSexual OrientationChoose not to /09/2025 6:07 PM EDTdocumented as of this encounter Miscellaneous Notes * Telephone Encounter - [facility] - 12/20/2024 5:44 PM EDT Contract: 129 Pt calling with severe back pain, pelvic pain pt is 38 weeks 4 days * Telephone Encounter - [facility] - 12/20/2024 5:44 PM EDT Called head neck surgeon provider ZEUS Manzo and connected her with patient. documented in this encounter Plan of Treatment DateTypeDepartmentCare Team (Latest Contact Info)Uhaxmseladi11/22/2025 9:00 AM ESTOffice Visit [facility] [address] [place] [address] Nigel Kincaid MD [address] [place] [address] 03/01/2025 10:00 AM ESTOffice Visit [facility] [address] [facility] [address] [place] [phone] Alice Michel MD [address] [facility] [place] [address] documented as of this encounter Visit Diagnoses Not on filedocumented in this encounter Additional Health Concerns AssessmentNoted TimeA Body Mass Index follow-up plan has been documented for the zwtvito8409/08/2024 11:31 AM EDTdocumented as of this encounter Care Teams Team MemberRelationshipSpecialtyStart DateEnd Date Carloz Nelson MD [address] [facility] [address] [place] [address] PCP - GeneralInternal Asqvsjku82/30/24documented as of this encounter
--- OUTSIDE RECORDS SUMMARY | 2024-12-31 21:23 | XMS_ITS | Encounter Summary ---
Author Organization [employer] tem Address [id number] [address] [place] [address] Care Team Providers Care Windows Application Packager Name Role Phone Carloz Nelson MD Primary Care Provider [phone] Encounter Details DateTypeDepartmentCare Team (Latest Contact Info)Ptjpwowuhzy97/05/2025Travel Social History Tobacco UseTypesPacks/DayYears UsedDateSmoking Tobacco: NeverPassive Smoke Exposure: NeverSmokeless Tobacco: NeverAlcohol UseStandard Drinks/WeekComments Not Currently0 (1 standard drink = 0.6 oz pure alcohol)PHQ-2AnswerDate Recorded Total Rngph94003/02/2024UDIT-CAnswerDate RecordedQ1: How often do you have a [...] needed for daily living?No12/23/2024Edinburgh Depression ScaleAnswerDate Recorded [place] Depression Scale Bikka09103/01/2024The thought of harming myself has occurred to me.Never12/30/2024Housing InstabilityAnswerDate Recorded Are you worried or concerned that in the next two months you may not have stable housing that you own, rent or stay in as a part of a household?No12/23/2024 ChildcareAnswerDate RecordedDo problems getting director child make it difficult for you to work or study?No12/31/2024EmploymentAnswerDate RecordedEmploymentUnknown 08/05/2018Hunger ScreeningAnswerDate RecordedWithin the past 12 months we worried whether our food would run out before we got money to buy more.Never True12/31/2024Within the past 12 months the food we bought just didn't last and we didn't have money to get more.Never True12/31/2024CommentsNoSex and Gender InformationValueDate RecordedSex Assigned at FmljhNetimi44/09/2025 6:08 PM EDTLegal WybCjarez16/04/2015 8:25 PM EDTGender QxutunvuGjyeta32/09/2025 6:07 PM EDTSexual OrientationChoose not to /09/2025 6:07 PM EDTdocumented as of this encounter Plan of Treatment DateTypeDepartmentCare Team (Latest Contact Info)Bhtxjlnstqu41/22/2025 9:00 AM ESTOffice Visit [facility] [address] [place] [phone] Nigel Kincaid MD [address] [place] [address] 03/01/2025 10:00 AM ESTOffice Visit [facility] [address] [place] [address] Alice Michel MD [address] [place] [address] documented as of this encounter Visit Diagnoses Not on filedocumented in this encounter Additional Health Concerns AssessmentNoted TimeA Body Mass Index follow-up plan has been documented for the hivrvih5609/08/2024 11:31 AM EDTdocumented as of this encounter Care Teams Team MemberRelationshipSpecialtyStart DateEnd Date Carloz Nelson MD [address] [phone] PCP - GeneralInternal Nbtkemsr55/30/24documented as of this encounter
--- OUTSIDE RECORDS SUMMARY | 2024-12-31 21:23 | XMS_ITS | CCD ---
Author Organization [facility] Care Team Providers Care Correspondence Section Supervisor Name Role Phone Unavailable Primary Care Provider UnavailNILDA Ventura Referring Unavailable Jocelynn Koo Attending UnavailCarloz Paulino MD Primary Care Provider CARLOZ NELSON Attending Unavailable RAMIRO HUNTLEY Attending Unavailable DO Kj Mcclelland Attending Provider Kj Mcclelland Attending Unavailable Kj Mcclelland Admitting Unavailable No Pcp, No Pcp Primary Care Provider UnavailCarloz Paulino MD Primary Care Provider SANJUANITA NGUYEN Referring Unavailable NELSON, CARLOZ B Primary Care Unavailable SANJUANITA NGUYEN Referring Unavailable NELSON, CARLOZ B Primary Care Unavailable SANJUANITA NGUYEN Referring Unavailable NELSON, CARLOZ B Primary Care Unavailable Carloz Nelson MD Primary Care Provider [phone] SOFÍA BOUCHER Attending Unavailable JAMES, CARLOZ B Primary Care Unavailable SANJUANITA NGUYEN Attending Unavailable NELSON, CARLOZ B Referring Unavailable NELSON, CARLOZ B Primary Care Unavailable NELSON, CARLOZ B Referring Unavailable NELSON, CARLOZ B Primary Care Unavailable DELICIA JOHNSTON Attending Unavailable NELSON, CARLOZ B Referring Unavailable NELSON, CARLOZ B Primary Care Unavailable NELSON, CARLOZ B Referring Unavailable NELSON, CARLOZ B Primary Care Unavailable NELSON, CARLOZ B Referring Unavailable NELSON, CARLOZ B Primary Care Unavailable NELSON, CARLOZ B Referring Unavailable NELSON, CARLOZ B Primary Care Unavailable SANJUANITA NGUYEN Attending Unavailable NELSON, CARLOZ B Referring Unavailable NELSON, CARLOZ B Primary Care Unavailable SANJUANITA NGUYEN M Referring Unavailable NELSON, CARLOZ B Primary Care Unavailable ALESSANDRO LAWLER Attending Unavailable SANJUANITA NGUYEN Referring Unavailable NELSON, CARLOZ B Primary Care Unavailable IAIN, EHAD Attending Unavailable KROTZER, SANJUANITA M Referring Unavailable NELSON, CARLOZ B Primary Care Unavailable NELSON, CARLOZ B Referring Unavailable NELSON, CARLOZ B Primary Care Unavailable ALICE MICHEL Attending Unavailable ZIENTEK, NETTIE R Referring Unavailable NELSON, CARLOZ B Primary Care Unavailable NELSON, CARLOZ B Referring Unavailable NELSON, CARLOZ B Primary Care Unavailable MACDELICIA HAMMOND M Attending Unavailable KROTZER, SANJUANITA M Attending Unavailable NELSON, CARLOZ B Referring Unavailable NELSON, CARLOZ B Primary Care Unavailable KROTZER, SANJUANITA M Attending Unavailable NELSON, CARLOZ B Referring Unavailable NELSON, CARLOZ B Primary Care Unavailable NELSON, CARLOZ B Referring Unavailable NELSON, CARLOZ B Primary Care Unavailable KROTZER, SANJUANITA M Attending Unavailable NELSON, CARLOZ B Referring Unavailable NELSON, CARLOZ B Primary Care Unavailable KROTZER, SANJUANITA M Attending Unavailable NELSON, CARLOZ B Referring Unavailable NELSON, CARLOZ B Primary Care Unavailable KROTZER, SANJUANITA M Attending Unavailable NELSON, CARLOZ B Referring Unavailable NELSON, CARLOZ B Primary Care Unavailable KROTZER, SANJUANITA M Attending Unavailable NELSON, CARLOZ B Referring Unavailable NELSON, CARLOZ B Primary Care Unavailable KROTZER, SANJUANITA M Attending Unavailable KROTZER, SANJUANITA M Referring Unavailable NELSON, CARLOZ B Primary Care Unavailable KROTZER, SANJUANITA M Referring Unavailable NELSON, CARLOZ B Primary Care Unavailable KROTZER, SANJUANITA M Referring Unavailable NELSON, CARLOZ B Primary Care Unavailable KROTZER, SANJUANITA M Attending Unavailable KROTZER, SANJUANITA M Referring Unavailable NELSON, CARLOZ B Primary Care Unavailable KROTZER, SANJUANITA M Referring Unavailable NELSON, CARLOZ B Primary Care Unavailable MACMAINDELICIA M Referring Unavailable NELSON, CARLOZ B Primary Care Unavailable KROTZER, SANJUANITA M Referring Unavailable NELSON, CARLOZ B Primary Care Unavailable KROTZER, SANJUANITA M Referring Unavailable NELSON, CARLOZ B Primary Care Unavailable ZIENTEK, NETTIE R Referring Unavailable NELSON, CARLOZ B Primary Care Unavailable MACMAINDELICIA M Referring Unavailable NELSON, CARLOZ B Primary Care Unavailable MACMAIN, DELICIA M Referring Unavailable NELSON, CARLOZ B Primary Care Unavailable ZIENTEK, NETTIE R Referring Unavailable NELSON, CARLOZ B Primary Care Unavailable PRESTON, DELICIA M Referring Unavailable NELSON, CARLOZ B Primary Care Unavailable EMMETT WILKINSON Attending Unavailable ALESSANDRO LAWLER Referring Unavailable NELSON, CARLOZ B Primary Care Unavailable DELICIA JOHNSTON Referring Unavailable CARLOZ NELSON Primary Care Unavailable EMMETT WILKINSON Attending Unavailable EMMETT WILKINSON Referring Unavailable CARLOZ NELSON Primary Care Unavailable TREVOR HURD Admitting Unavailable TERVOR HURD Attending Unavailable CARLOZ NELSON Primary Care Unavailable SANJUANITA NGUYEN Attending Unavailable SANJUANITA NGUYEN Referring Unavailable CARLOZ NELSON B Primary Care Unavailable HOLAANASARAJOANIE S Admitting Unavailable CARLOZ NELSON Primary Care Unavailable DELICIA EGAN Attending Unavailable Allergies Allergy ClassificationReported Allergen(s)Allergy TypeDate of OnsetReaction(s) Facility (1 source)No Known Medication Allergies; Translations: [No Known Medication Allergies]Propensity to adverse reactions to drug (disorder)[facility] Repository (4 sources)Azithromycin; Translations: [AZITHROMYCIN]Drug [id number] Itching[facility] Medications Current Medications MedicationDrug Class(es)DatesSig (Normalized)Sig (Original)acetaminophen 500 mg oral tablet (9 sources)Start: 72-11-0445bxjl 2 tablets by mouth every eight hours as needed for painacetaminophen (TYLENOL EXTRA STRENGTH) 500 mg tablet Indications: delivery delivered , care following delivery Take 2 tablets (1,000 mg total) by mouth every 8 (eight) hours as needed for pain. 60 tablet 1 12/27/2024 ActiveStart: 10-68-8886qgiw 1 tablet by mouth every eight hours1,000 mg, oral, Every 8 hours, First dose on Sat12/25/24 at 0100, , Alternate administration every 4 hours with ketorolac or ibuprofen Start: 12-24-2024 End: 62-36-7885Vnuzyhji on Stephani 12/24/24 at 2035, For 1 dose, Tre Nur: sapphire overrideStart: 12-24-2024 End: 82-34-6762mwhx 1000 mg by mouth once1,000 mg, oral, Once, On Stephani 12/24/24 at 2015, For 1 dose, L&D Pre-DeliveryStart: 12-23-2024 End: 93-03-9910paem 1 tablet by mouth every four hours as needed for fyal801 mg, oral, Every 4 hours PRN, mild pain - pain scale 1-3, Starting on 12/23/24 at 1733, L&D Pre-DeliveryAcetaminophen (TYLENOL) 325 MG CAPS Take by mouth 0 Activeatomoxetine 25 mg oral capsule (5 sources)Norepinephrine Reuptake InhibitorStart: 08-28-2023 End: 82-05-6078wcbp 1 capsule by mouth in the morning, then take 1 capsule by mouth at bedtimeatomoxetine (STRATTERA) 25 mg capsule Take 1 capsule (25 mg total) by mouth in the morning and 1 capsule (25 mg total) before bedtime. 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 Take 1000mg (two tablets) on day one followed by 500 mg (one tablet) daily for the next three days 5 tablet 08/03/2024 08/06/2024 Activebisacodyl 10 mg rectal suppository (1 source)Stimulant LaxativeStart: 56-75-902043 mg, rectal, Once as needed, constipation, no relief from docusate or senna/docusate, Starting onFri 12/25/24 at 0000, For 1 dose, , Start 2nd day Look-alike/sound-alike medication - verify indication for use.1 ml carboprost 0.25 mg/ml injection (2 sources)Prostaglandin AnalogStart: 90-92-2033hpukal 250 ug by intramuscular injection once as yensxe502 mcg, intramuscular, Once as needed, hemorrhage management, Starting on Stephani 12/24/24 at 2242, For 1 dose, , Administer as directed by provider for Hemorrhage management. DO NOT ADMINISTER IV. Contraindicated if patient has a history of asthma or cardiovascular diseasedocusate sodium 100 mg oral capsule (5 sources)Start: 21-85-7627stte 1 capsule by mouth twice daily as needed for constipationdocusate sodium (COLACE) 100 mg capsule Indications: delivery delivered , care following delivery Take 1 capsule (100 mg total) by mouth 2 (two) times a day as needed forconstipation. 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 Do all this for 7 days. 13 capsule 12/27/2024 01/03/2025 ActiveStart: 12-27-2024 End: 07-70-7396434 mg, oral, 2 times daily, First dose on 12/27/24 at 0900, For 7 days, May give with meals to decrease GI upset. Administer with at least 8 ounces of water and have patient sit up for at least 30 minutes after taking to reduce the risk of esophageal irritation and ulceration., Indication: UTI hydrocortisone 25 mg/ml topical cream (1 source)CorticosteroidStart: Application, rectal, As needed, hemorrhoids, Starting on Stephani 12/24/24 at 2242, , May keep at bedside, Indications: hemorrhoidsibuprofen 800 mg oral tablet (8 sources)Nonsteroidal Anti-inflammatory DrugStart: 44-07-9998nmjq 1 tablet by mouth every eight hours as needed for painibuprofen (MOTRIN) 800 mg tablet Indications: delivery delivered , care following delivery Take 1 tablet (800 mg total) by mouth every 8 (eight) hours as needed for pain.30 tablet 1 12/27/2024 ActiveStart: 07-23-2021 End: 77-05-1127ztbv 1 tablet by mouth every eight hours as needed for pain ibuprofen (MOTRIN) 800 mg tablet Take 1 tablet (800 mg total) by mouth every 8 (eight) hours as needed for pain. 30 tablet 07/23/2021 12/25/2023 Discontinued (Therapy completed)lanolin 1000 mg/ml topical cream (1 source)Start: Application, topical, As needed, sore/cracked nipples, Starting on Stephani 12/24/24 at 2242, , May keep at bedside magnesium oxide 400 mg oral tablet (20 sources)Start: 09-18-2024 End: 75-71-0225rzkv 1 tablet by mouth once dailymagnesium oxide (MAGOX) 400 mg tablet Indications: Restless leg syndrome in , Sleep disturbance Take 1 tablet (400 mg total) by mouth nightly. 30 tablet 4 12/11/2024 Active1 ml methylergonovine maleate 0.2 mg/ml injection (2 sources)Ergot DerivativeStart: 11-63-7171229 mcg, intramuscular, Once as needed, hemorrhage treatment, Starting on Stephani 12/24/24 at 2242, For 1 dose, , For hemorrhage treatment, administer as directed by provider for Hemorrhage management. DO NOT ADMINISTER IV. Contraindicated if patient has a hypersensitivity of Systolic BP greater than 140 or Diastolic BP greater than 90. Look-alike/sound-alike medication - verify indication for use.metroNIDAZOLE 500 mg oral tablet (3 sources)Nitroimidazole AntimicrobialStart: 07-29-2024 End: 71-67-5349xtwo 1 tablet by mouth in the morning, then take 1 tablet by mouth at bedtimemetroNIDAZOLE (FLAGYL) 500 mg tablet Indications: BV (bacterial vaginosis) Take 1 tablet (500 mg total) by mouth in the morning and 1 tablet (500 mg total) before bedtime. Do all this for 7 days. 14 tablet 07/29/2024 08/05/2024 ActiveStart: 05-21-2024 End: 97-96-1268cbgr 1 tablet by mouth in the morning, then take 1 tablet by mouth at bedtimemetroNIDAZOLE (FLAGYL) 500 mg tablet Indications: BV (bacterial vaginosis) Take 1 tablet (500 mg total) by mouth in the morning and 1 tablet (500 mg total) before bedtime. Do all this for 7 days. 14 tablet 05/21/2024 05/28/2024 ActivemiSOPROStol 0.2 mg oral tablet (2 sources)Prostaglandin E1 AnalogStart: 74-44-3012qcqe 800 ug under the tongue once as hrpoiy656 mcg, sublingual, Once as needed, hemorrhage treatment, Starting on Stephani 12/24/24 at 2242, For 1 dose, , Administer as directed by provider for Hemorrhage management. Use only if Hypertensive and Asthmatic. Look-alike/sound-alike medication - verify indication for use.Naloxone (1 source)Opioid AntagonistStart: .1 mg, intravenous, As needed, opioid reversal, patient unarousable OR respirations remain less than 8/minute OR SpO2 remains less than 90%, Starting on Stephani 12/24/24 at 2220, , Administer over 15 seconds every 2 minutes as needed for a maximum of 0.4 mg (4 doses total). Look-alike/sound-alike medication - verify indication for use. omeprazole 20 mg delayed release oral capsule (4 sources)Proton Pump InhibitorStart: 11-19-2024 End: 99-42-0851nsfu 1 capsule by mouth in the morningomeprazole (PriLOSEC) 20 mg capsule Take 1 capsule (20 mg total) by mouth in the morning. 30 capsule 1 11/19/2024 12/11/2024 Discontinued (Therapy completed)2 ml ondansetron 2 mg/ml injection (5 sources)Serotonin-3 Receptor AntagonistStart: 60-39-8610iykk 4 mg intravenously every four hours as needed for nausea and vomiting4 mg, intravenous, Every 4 hours PRN, nausea, vomiting, Starting on 12/25/24 at 0011, Intravenous administration preferred to be given over 2-5 minutes.Start: 12-24-2024 End: 94-33-4631ckcc 4 mg intravenously every six hours as needed for nausea and vomiting4 mg, intravenous, Every 6 hours PRN, nausea, vomiting, Starting on Stephani 12/24/24 at 1746, Intravenous administration preferred to be given over 2-5 minutes.Start: 09-23-2023 End: 09-66-2767xjhu 1 tablet by mouth every six hours as needed for nausea and vomitingondansetron ODT (Zofran-ODT) 4 MG disintegrating tablet DISSOLVE 1 TABLET IN MOUTH EVERY 6 HOURS ASNEEDED FOR NAUSEA AND VOMITING 09/23/2023 12/12/2023 DiscontinuedoxyCODONE hydrochloride 5 mg oral tablet (5 sources)Opioid AgonistStart: 12-27-2024 End: 08-90-1448lvco 1 tablet by mouth every six hours as needed for pain oxyCODONE (ROXICODONE) 5 mg immediate release tablet Indications: delivery delivered , care following delivery Take 1 tablet (5 mg total) by mouth every 6 (six) hours as needed for pain for up to 3 days. Max Daily Amount: 20 mg 12 tablet 12/27/2024 12/30/2024 ActiveStart: 12-24-2024 take 1 tablet by mouth every four hours as needed for pain10 mg, oral, Every 4 hours PRN, severe pain - pain scale 7-10, breakthrough pain, Starting on Stephani at 2242, , Look-alike/sound-alike medication - verify indication for use. Immediate release.Start: 61-28-6952vert 1 tablet by mouth every four hours as needed for pain5 mg, oral, Every 4 hours PRN, moderate pain - pain scale 4-6, breakthrough pain, Starting on Stephani 12/24/24 at 2242, , Look-alike/sound-alike medication - verify indication for use. Immediate release.Start: 12-13-2023 End: 26-19-3768kzsa 1 tablet by mouth every six hours as needed for pain oxyCODONE (ROXICODONE) 5 mg immediate release tablet Indications: Status post laparoscopic appendectomy , Postoperative pain Take 1 tablet (5 mg total) by mouth every 6 (six) hours as needed for painfor up to 5 days. Max Daily Amount: 20 mg 12 tablet 12/13/2023 12/18/2023 Active1 ml oxytocin 10 unt/ml injection (2 sources)OxytocicStart: 80-70-4221hjtyeo 10 [IU] by intramuscular injection once as gdjwog16 Units, intramuscular, Once as needed, hemorrhage treatment, Starting on Stephani 12/24/24 at 2242, For 1 dose, , administer as directed by provider for Hemorrhage managementoxytocin (PITOCIN) bolus from bag solution 10 Units (1 source)Start: Units, intravenous, Administer over 30 Minutes, Once as needed, post-delivery hemostasis, Starting on Stephani 12/24/24 at 2013, For 1 dose, , Administer via programmable pump with lactated ringers solutionoxytocin (PITOCIN) infusion 30 units/500 mL in lactated ringers (0.06 units/mL premix) (1 source)Start: marciano-units/min (42 mL/hr), intravenous, Continuous PRN, for post-delivery hemostasis, Starting on Stephani 12/24/24 at 2013, , Administer for 4 hours. Administer via programmable pump with la ctated ringers solution 1 mL/hour = 1 marciano-unit/minPNV no.95/ferrous fum/folic ac ( ORAL) (20 sources)PNV no.95/ferrous fum/folic ac ( ORAL) Take by mouth.PNV no.95/ferrous fum/folic ac ( ORAL) Take by mouth. SuspendedPNV no.95/ferrous fum/folic ac ( ORAL) Take by mouth. ActivePNV,calcium 88-qcer-yyiry acid ( PLUS) 27 mg iron- 1 mg tablet 1 tablet (1 source)Start: 84-68-0360etfz 1 tablet by mouth once daily1 tablet, oral, Daily, First dose on Sat12/25/24 at 0900, Postpartumpolyethylene glycol 3350 63941 mg powder for oral solution (13 sources)Osmotic LaxativeStart: 41-37-992099 g, oral, Daily, First dose on Sat12/25/24 at 0900, , Look-alike/sound-alike medication - verify indication for use. Dissolve 1 packet (17 gm) in 8 ounces of water, juice, soda, coffee or tea.Start: 10-09-2024 End: 41-72-9144egoiqpvnpmkr glycol (GLYCOLAX) 17 gram/dose powder Indications: Constipation during in third trimester Take 17 g by mouth in the morning. 510 g 3 10/09/2024 11/09/2024 Discontinued (Therapycompleted)pyridoxine hydrochloride 25 mg oral tablet (9 sources)Start: 05-13-2024 End: 00-48-4448pyuorzrfwv, vitamin B6, (B-6) 25 mg tablet Indications: Nausea/vomiting in Take 1 tablet (25 mg total) by mouth in the morning and 1 tablet (25 mg total) at noon and 1 tablet (25 mg total) in the evening and 1 tablet (25 mg total) before bedtime. 120 tablet 1 05/13/2024 07/15/2024 Discontinued (Patient Never Started This Medication)simethicone 80 mg chewable tablet (1 source)Start: 22-59-915704 mg, oral, 4 times daily before meals and at bedtime as needed, flatulence, abdominal discomfort caused by gas and distension, Starting on Stephani 12/24/24 at 2242, , Maximum dose 500 mg yevfi905 ml sodium chloride 9 mg/ml prefilled syringe (5 sources)Start: mL, intravenous, Every 12 hours scheduled, First dose on Sat12/23/24 at 2100, PostpartumStart: mL, intravenous, As needed, line care, before and after each intermittent use, Starting on Sat at 1734, PostpartumStart: 10-27-2024 End: 41-97-6883mjcz 25 mL intravenously every hour as pogkij10 mL/hr, intravenous, Continuous PRN, When mainline IV needed., Starting on Sat10/27/24 at 1335, Match IVF to base solution of product being administered to ensure compatibility.Start: 10-16-2024 End: 20-68-4163rhgj 25 mL intravenously every hour as mcuupo47 mL/hr, intravenous, Continuous PRN, When mainline IV needed., Starting on Sat10/16/24 at 1349, Match IVF to base solution of product being administered to ensure compatibility.Start: 10-13-2024 End: 76-43-7299sfoh 25 mL intravenously every hour as djakwv65 mL/hr, intravenous, Continuous PRN, When mainline IV needed., Starting on Sat10/13/24 at 1331, Match IVF to base solution of product being administered to ensure compatibility.10 ml tranexamic acid 100 mg/ml injection (3 sources)Antifibrinolytic AgentStart: 24-92-8506jtnj 1 dose intravenously once 1,000 mg, intravenous, Administer over 10 Minutes, Every 30 min PRN, hemostasis/ post- hemorrhage, Starting on Stephani 12/24/24 at 2242, For 2 doses, , As directed by provider for hemostasis/ hemorrhage management. Give slow IV push over 10 minutes, may repeat one time in 30 minutes after initial dose Completed/Discontinued Medications MedicationDrug Class(es)DatesSig (Normalized)Sig (Original)calcium chloride 0.0014 meq/ml / potassium chloride 0.004 meq/ml / sodium chloride 0.103 meq/ml / sodium lactate 0.028 meq/ml injectable solution (3 sources)Start: 12-23-2024 End: mL/hr, intravenous, Continuous, Starting on Stephani 12/24/24 at 2014, For 1 day, , Start after 4 hour oxytocin (PITOCIN) infusion and lactated ringers infusion is completed.Start: 12-23-2024 End: mL, intravenous, at 968 mL/hr, Administer over 31 Minutes, As needed, to improve utero-placental perfusions and/or relieve cord compression and/or tachysystole contraction pattern, Starting on Sat12/23/24 at 1733, For 2 doses, (tacysystole contraction pattern = more than 5 contractions in a 10 minute segment averaged over 30 minutes). Max of 1000 mLcephalexin 500 mg oral capsule (3 sources)Cephalosporin AntibacterialStart: 09-23-2023 End: 70-02-7164ubzm 1 capsule by mouth every eight hourscephalexin (Keflex) 500 MG capsule TAKE 1 CAPSULE BY MOUTH EVERY 8 HOURS FOR 7 DAYS 09/23/202312/11 Discontinuedcitric acid 66.8 mg/ml / sodium citrate 100 mg/ml oral solution (1 source)Calculi Dissolution Agent, Anti-coagulantStart: 12-24-2024 End: 66-60-5092wawa 1 dose by mouth every hour30 mL, oral, Once, On Stephani 12/24/24 at 2014, For 1 dose, L&D Pre-Delivery, Within one hour priorto transfer to surgical suite Look-alike/sound-alike medication - verify indication for use.50 ml clindamycin 12 mg/ml injection (3 sources)Lincosamide AntibacterialStart: 12-23-2024 End: 36-96-9348Tdhdgwxe on Sat12/23/24 at 1957, For 1 dose, Tre Nur: sapphire overrideStart: 12-23-2024 End: 59-26-3487rbqg 600 mg intravenously every eight hudgt394 mg, intravenous, at 100 mL/hr, Administer over 30 Minutes, Every 8 hours, First dose on 11/27 at 1200, For 2 days, NEXT DOSE TO START AT 1200, Indication: Gynecologic infectiondinoprostone 10 mg drug implant (2 sources)Prostaglandin AnalogStart: 12-23-2024 End: mg, vaginal, Administer over 12 Hours, Once, On Stephani 12/24/24 at 1000, For 1 dose, L&D Pre-Delivery, Remove 30 minutes prior to start of induction with oxytocin (PITOCIN), and/or tachysystole contraction pattern (more than 5 contractions in a 10 minute segment averaged over 30 minutes) not res olved by changing maternal position and IV hydration, and/or inability to monitor patient's FHR or uterine contraction pattern at recommended intervals, and/or a FHR Category 2 with significant decelerations develops, and/or a FHR Category 3 develops. Patient to remain in bed at least [address]-insertiondoxylamine succinate 25 mg oral tablet (20 sources)Start: 09-18-2024 End: 59-17-0825ruja 1 tablet by mouth once dailydoxylamine (UNISOM, DOXYLAMINE,) 25 mg tablet Indications: Sleep disturbance Take 1 tablet (25 mg total) by mouth nightly. 30 tablet 09/18/2024 11/06/2024 Discontinued (Therapy completed) Start: 05-13-2024 End: 07-02-0138dzzp 1 tablet by mouth once daily as needed for nauseadoxylamine (UNISOM) 25 mg tablet Indications: Nausea/vomiting in Take 1 tablet (25 mg total) by mouth nightly as needed for sleep or nausea. 30 tablet 1 05/14/2024 07/15/2024 Discontinued (Patient Stopped On Own)2 ml famotidine 10 mg/ml injection (1 source)Histamine-2 Receptor AntagonistStart: 12-24-2024 End: mg, intravenous, Once, On Stephani 12/24/24 at 2015, For 1 dose, L&D Pre-Delivery, Administer 30 minutes prior to surgery Dilute to total volume of 5 mL with 0.9% sod chl and administer IVP over 2 minutes.ferrous sulfate 325 mg oral tablet (15 sources)Start: 09-21-2024 End: 08-39-9655hwak 1 tablet by mouth in the morningferrous sulfate 325 (65 FE) MG tablet Indications: Iron deficiency anemia secondary to inadequate dietary iron intake Take 1 tablet (325 mg total) by mouth in the morning. 30 tablet 3 09/21/2024 11/09/2024 Discontinued (Therapy completed)iron sucrose (VENOFER) 200 mg in sodium chloride 0.9 % 100 mL IVPB (3 sources)Start: 10-27-2024 End: 18-75-8783050 mg, intravenous, at 440 mL/hr, Administer over 15 Minutes, Once, On Sat10/27/24 at 1345, For 1 dose, Monitor patient for hypersensitivity reactions for at least 30 minute,s after the infusion. AVOID the use of H1 antihistamines, such as diphenhydramine, as this may worsen hypersensitivity reactions. Have resuscitation equipment and medications available. Monitor patient for hypersensitivity reactions for at least 30 minutes after the infusion. AVOID the use of H1 antihistamines, such as diphenhydramine, as this may worsen hypersensitivity reactions. Have resuscitation equipment and medicati ons available.Start: 10-16-2024 End: 01-10-1523274 mg, intravenous, at 440 mL/hr, Administer over 15 Minutes, Once, On Sat10/16/24 at 1400, For 1 dose, Monitor patient for hypersensitivity reactions for at least 30 minute,s after the infusion. AVOID the use of H1 antihistamines, such as diphenhydramine, as this may worsen hypersensitivity reactions. Have resuscitation equipment and medications available. Monitor patient for hypersensitivity reactions for at least 30 minutes after the infusion. AVOID the use of H1 antihistamines, such as diphenhydramine, as this may worsen hypersensitivity reactions. Have resuscitation equipment and medicat ions available.Start: 10-13-2024 End: 66-05-8373480 mg, intravenous, at 440 mL/hr, Administer over 15 Minutes, Once, On Sat10/13/24 at 1345, For 1 dose, Monitor patient for hypersensitivity reactions for at least 30 minute,s after the infusion. AVOID the use of H1 antihistamines, such as diphenhydramine, as this may worsen hypersensitivity reactions. Have resuscitation equipment and medications available. Monitor patient for hypersensitivity reactions for at least 30 minutes after the infusion. AVOID the use of H1 antihistamines, such as diphenhydramine, as this may worsen hypersensitivity reactions. Have resuscitation equipment and medicat ions available.ketorolac tromethamine 10 mg oral tablet (3 sources)Nonsteroidal Anti-inflammatory Drug, Cyclooxygenase InhibitorStart: 09-23-2023 End: 21-11-5599goqq 1 tablet by mouth three times daily as needed for pain ketorolac (Toradol) 10 MG tablet TAKE 1 TABLET BY MOUTH 3 TIMES A DAY NEEDED FOR PAIN Discontinued1 ml nalbuphine hydrochloride 10 mg/ml injection (1 source)Opioid Agonist/AntagonistStart: 12-24-2024 End: 08-34-5753eyrbzx 10 mg by intramuscular injection every three hours as needed for pain and pain10 mg, intramuscular, Every 3 hours PRN, moderate pain - pain scale 4-6, severe pain - pain scale 7-10, Starting on Stephani 12/24/24 at 0555, Look-alike/sound-alike medication - verify indication for use. 00-exjj-hfgqcc 9-dha 31 mg iron- 1 mg-200 mg capsule (20 sources)Start: 05-05-2024 End: 97-58-9356aagz 1 capsule by mouth in the morningprenatal 83-ecqy-rkzzhb 9- dha 31 mg iron- 1 mg-200 mg capsule Indications: First trimester Take 1 capsule by mouth in the morning. 90 capsule 3 05/05/2024 11/09/2024 Discontinued (Therapy completed)Start: 05-50-0385zond 1 capsule by mouth in the morningprenatal 60-ercg-qbkvmi 9-dha 31 mg iron- 1 mg-200 mg capsule Indications: First trimester Take 1 capsule by mouth in the morning. 90 capsule 3 05/05/2024 Active Problems Active Problems Problem ClassificationProblemDateDocumented DateEpisodic/ChronicAbdominal pain (2 sources)Lower abdominal pain; Translations: [Lower abdominal pain, unspecified]83-53-1738VrrvzlnjUzpnhsd dysrhythmias (1 source)PalpitationsOnset: 67-97-8211MmuaypkhYkmecwhudkgln of surgical procedures or medical care (2 sources)Wound pain ; Translations: [Other postprocedural complications of skin and subcutaneous tissue]28-61-3960QrwuxvuoMsdxcokwql associated with dizziness or vertigo (1 source)DizzinessOnset: 56-69-9304FqcfdgphPjhqtcupxv and other anemia (1 source)Iron deficiency anemia, unspecified; Translations: [Iron deficiency anemia, unspecified]Onset: 74-39-7852MdqtfkblFzoxoefr; including migraine (20 sources)Transformed migraine; Translations: [Chronic migraine with aura] Onset: 07-15-2024 Resolved: 067223-10-5990TzkokqyQnrezqmr; including migraine (3 sources)Headache; including migraine; Translations: [Headache, unspecified] Onset: 27-37-1614Gjiolukinnds complicating ; childbirth and the puerperium (1 source)Pre-eclampsiaOnset: 99-46-5764GwqridukJukvuveqfnkuw and screening for infectious disease (13 sources)Patient encounter status; Translations: [Encounter for screening for infections with a predominantly sexual mode of transmission]Onset: 07-29-2024 06-89-1844XrcpziszOaaldmzdy disorders (1 source)Menstrual period late; Translations: [Late menses]ChronicOther complications of ; puerperium affecting management of mother (6 sources)Deliveries by ; Translations: [Encounter for delivery without indication]Onset: 096305-98-6725BhdaxfouBnelf complications of ; puerperium affecting management of mother (1 source)Encounter for delivery without indication; Translations: [Encounter for delivery without indication]Onset: 74-02-0425Wrbhyfht Other complications of (1 source)Anemia of ; Translations: [Anemia complicating , third trimester]13-36-0114WgowrijPywai complications of (2 sources)Vomiting of , unspecified; Translations: [Unspecified vomiting of , unspecified as to episode of care or not applicable] 61-36-4954GafjkqkoGpwni complications of (1 source)Headache; Translations: [Other specified related conditions, first trimester]01-24-2119LjwrvqgsGdfvo complications of (5 sources)Diseases of the nervous system complicating , unspecified trimester; Translations: [Other current conditions classifiable elsewhere of mother, unspecified as to episode of care or not applicable]Onset: 09-18-2024 65-94-0832UcqsugcjHtmjr complications of (1 source)Fatigue during ; Translations: [ related exhaustion and fatigue, second trimester]75-52-7518JiylnwnjBlgka complications of (2 sources)Diseases of the digestive system complicating , third trimester; Translations: [Other current conditions classifiable elsewhere of mother, antepartum condition or complication]Onset: 125266-34-2260Lkmkuzow Other complications of (1 source)Uterine size for dates discrepancy; Translations: [Uterine size-date discrepancy, third trimester]42-20-5685LxdtuqteTwjhq complications of (1 source)Uterine size-date discrepancy, third trimester; Translations: [Uterine size-date discrepancy, thirdtrimester]Onset: 94-25-7667FwwncnvnZjjjl complications of (1 source)Other specified related conditions, third trimester; Translations: [Other specified related conditions, third trimester] Onset: 91-06-9763LxxdlgctRlqsm gastrointestinal disorders (1 source)Constipation, unspecified; Translations: [Constipation, unspecified] Onset: 59-80-9830VxutzydkQywiy hereditary and degenerative nervous system conditions (2 sources)Restless legs syndrome; Translations: [Restless legs syndrome]Onset: 86-00-0644GfmxoxdXwvjw lower respiratory disease (1 source)Shortness of breathOnset: 63-18-6735PidonophKeywm nervous system disorders (4 sources)H/O: migraine; Translations: [Personal history of other diseases of the nervous system and sense organs]21-29-1687KdewulpeXappi and delivery including normal (20 sources)First trimester ; Translations: [Encounter for supervision of normal , unspecified, first trimester]Onset: 05-11-2024 Resolved: 947853-18-4255UbdobftnKfqkooyg codes; unclassified (1 source)Gestation period, 18 weeks; Translations: [18 weeks gestation of ]36-75-0018MinxeebeLcwwhiwj codes; unclassified (1 source)Gestation period, 21 weeks; Translations: [21 weeks gestation of ]03-51-0530GcqrsgslRkhtysoh codes; unclassified (17 sources)History of delivery of macrosomal ; Translations: [Personal history of other complications ofpregnancy, childbirth and the puerperium]Onset: 311216-96-1215TvlbtiroPsykoyxl codes; unclassified (3 sources)Disturbance in sleep behavior; Translations: [Sleep disorder, unspecified]63-98-4855ZffoszqqVbntvihv codes; unclassified (2 sources)28 weeks gestation of ; Translations: [28 weeks gestation of ]Onset: 69-62-1316WtpatflsBqzxndfp codes; unclassified (2 sources)Sleep disorder, unspecified; Translations: [Sleep disorder, unspecified]Onset: 99-33-4177EzmnhgvhHslsnssfubor (2 sources)New PatientOnset: 85-45-5611Xwaiffpdgxob (1 source)Routine VisitOnset: 57-30-6842Qflqqvptpoau (1 source)STD ScreeningOnset: 39-76-0076Rxjcrmrtvhke (2 sources)Other specified diseases and conditions complicating ; Translations: [Other specified diseases and conditions complicating ] Onset: 39-27-3789Bjjweegarwyu (1 source)Initial VisitOnset: 65-83-4882Gqcrjcskzgsb (1 source)Scheduled InductionOnset: 26-36-7308Lmtjghkjvvvr (1 source)Decreased MovementOnset: 75-59-1358Chszdswoimrp (1 source)Rapid Heart RateOnset: 05-59-6007Zprrsfbsljuo (1 source)Outpatient InfusionOnset: 10-13-2024 Past or Other Problems Problem ClassificationProblemDateDocumented DateEpisodic/ChronicAllergic reactions (3 sources)Hand eczema; Translations: [Dermatitis, unspecified]Onset: 08-28-2023 74-13-6374SuivhgclGwccxewwa infection; unspecified site (20 sources)Mycoplasma infection, unspecified site; Translations: [Other specified bacterial infections in conditions classified elsewhere and of unspecified site, mycoplasma]Onset: 05-21-2024 Resolved: 754974-81-2043XdnhaesxGnppkdxrj and vision defects (20 sources)Visual disturbance; Translations: [Unspecified visual disturbance] Onset: 06-17-2024 Resolved: 367221-96-4827BtvwskhoUgcrtitjam and other anemia (20 sources)Iron deficiency anemia secondary to inadequate dietary iron intake; Translations: [Other iron deficiency anemias]Onset: 09-21-2024 Resolved: 145968-64-3785LtrvziqmNixllvrhed and other anemia (20 sources)Iron deficiency anemia; Translations: [Iron deficiency anemia, unspecified]Onset: 10-09-2024 Resolved: 493542-86-9068McbwjxbaOldgjaniljwi diseases of female pelvic organs (5 sources)Acute vaginitis; Translations: [Acute vaginitis]Onset: 05-20-2024 72-94-4460UyolrfzxMscs disorders (2 sources)Mood disordersOnset: Other complications of (20 sources)Back pain complicating ; Translations: [Back pain affecting in first trimester]Onset: 05-20-2024 Resolved: 759188-48-1494XfnperdhNuyit complications of (20 sources)Bacterial vaginosis in ; Translations: [Infection of other part of genital tract in , unspecified trimester]Onset: 05-21-2024 Resolved: 783882-00-0622TrqcwysmKwfni complications of (3 sources)Other specified related conditions, first trimester; Translations: [Other specified related conditions, first trimester] Onset: 87-34-9970BssuhnvoIruzz complications of (2 sources) related exhaustion and fatigue, second trimester; Translations: [ related exhaustion and fatigue, second trimester]Onset: 21-59-3215YleewrpqNocoi complications of (1 source)Infection of other part of genital tract in , unspecified trimester; Translations: [Infection of other part of genital tract in , unspecified trimester]Onset: 95-13-1273RprcarfgBwvpw injuries and conditions due to external causes (20 sources)H/O: injury; Translations: [Personal history of other (healed) physical injury and trauma]Onset: 05-20-2024 Resolved: 347697-92-9270OlqbzvtkEfpqd injuries and conditions due to external causes (2 sources)Personal history of other (healed) physical injury and trauma; Translations: [Personal history of other (healed) physical injury and trauma] Onset: 38-33-4170XxgdslimDcuxx nervous system disorders (1 source)Postoperative pain ; Translations: [Other acute postprocedural pain] 53-96-3431EyhemxdzFloaj nervous system disorders (1 source)Personal history of other diseases of the nervous system and sense organs; Translations: [Personal history of other diseases of the nervous system and sense organs]Onset: 89-51-2645EcydyteyDmzpb skin disorders (3 sources)Butterfly rash; Translations: [Rash and other nonspecific skin eruption]Onset: 243847-45-3450YghkhdjoIexkewaf codes; unclassified (3 sources)Acquired absence of other specified parts of digestive tract; Translations: [Other postprocedural status]Onset: 931361-22-2851Vkxjgqio Residual codes; unclassified (20 sources)Gestation period, 28 weeks; Translations: [28 weeks gestation of ]Onset: 10-09-2024 Resolved: 248588-89-5199IqvaatfiWmbafbam codes; unclassified (1 source)Personal history of other complications of , childbirth and the puerperium; Translations: [Personal history of other complications of , childbirth and the puerperium]Onset: 41-38-2324RmyqrhwxDsguzdllssq; intervertebral disc disorders; other back problems (2 sources)Dorsalgia, unspecified; Translations: [Dorsalgia, unspecified]Onset: 49-95-2610ArtewzljIonetvl (20 sources)Syncope and collapse; Translations: [Syncope and collapse]Onset: 07-15-2024 Resolved: 622383-48-9586GhfvdnjlGxahtvt disorders (20 sources)Subclinical hypothyroidism; Translations: [Other specified hypothyroidism]Onset: 09-21-2024 Resolved: 165135-58-6965CrzovvkBjyioxdstgke (20 sources)Onset: 195699-42-6977LPHZQUO: Highlighted row has been ruled out!Unclassified (5 sources)No known active jlaimvkk80-05-7280 Results Test NameValueInterpretationReference RangeFacilityCBC (NO DIFF)on 12-25-2024 Erythrocyte distribution width (RBC) [Ratio]15.0 %Rkayrr16.5-15[facility] HospitalComment on above:Performed By: #### CBC, 05560-7, 74103-2, AHP, 03433- 5, 83945-2, 35394-0 #### [facility] ([id number]) [address], [address] [place], [place] [address]Yyeeubrype (Bld) [Volume fraction]33.5 %Yuz58-81DorCavvydMethodist Hospital NortheastComment on above:Performed By: #### CBC, 67231-4, 94991-9, AHP, 87590-6, 30616-8, 56153-1 #### [facility] ([id number]) [address], [address] [place], [place] [address]Zazkefdbus (Bld) [Mass/Vol]11.3 g/dLLow11.7-15.5PKettering Health Greene MemorialComment on above:Performed By: #### CBC, 15569-8, 17223-4, AHP, 14260-7, 68067-2, 91323-0 #### [facility] ([id number]) [address], [address] [place], [place] [address]IJT (RBC) [Entitic mass]29.8 rfHboqpj07-66OmfVuhswmMethodist Hospital NortheastComment on above:Performed By: #### CBC, 34861-4, 41031-8, AHP, 03793-5, 39947-4, 22408-6 #### [facility] ([id number]) [address], [address] [place], [place] [address]FCLY (RBC) [Mass/Vol]33.9 g/fUCcvehz02-47OivDctauqMethodist Hospital NortheastComment on above:Performed By: #### CBC, 66244-6, 48981-8, AHP, 46865-1, 21731-7, 77582-0 #### [facility] ([id number]) [address], [address] [place] [address]QCZ (RBC) [Entitic vol]88 uWExbsii06-158YcmAdogbgOhioHealth Riverside Methodist HospitalComment on above:Performed By: #### CBC, 65360-8, 01431-1, AHP, 74189-6, 01212-5, 38675-7 #### [facility] ([id number]) [address], [address] [place] [address]Qjfpcblz mean volume (Bld) [Entitic vol]9.9 fLNormal7-[address] [facility] Medical CenterComment on above:Performed By: #### CBC, 06074-3, 50858-2, AHP, 01829-5, 66458-7, 75963-6 #### [facility] ([id number]) [address], [address] [place], [place] [address]Oucbissxy (Bld) [#/Vol]187 10*3/vFQjttnw332-721NiwOdwpcv [facility]remont HospitalComment on above:Performed By: #### CBC, 89602-3, 93242-3, AHP, 99384- 5, 21062-4, 96515-5 #### [facility] ([id number]) [address], [address] [place], [place] [address]HEH COUNT3.81 X10E12/LNormal3.8-5.2PKettering Health Greene Memorial Comment on above:Performed By: #### CBC, 37221-7, 20301-1, AHP, 17697-3, 76228- 4, 37913-5 #### [facility] ([id number]) [address], [address] [place], [place] [address]NLU (Bld) [#/Vol]14.6 10*3/uLHigh4-11[facility] Comment on above:Performed By: #### CBC, 46714-8, 10955-7, AHP, 89010-9, 74034- 4, 30529-2 #### [facility] ([id number]) [address] [place], [place] [address]OYH without diffon 87-03-2099Lmhzwdbftsi distribution width (RBC) [Ratio]15.0 %11.5 - 15 %[facility]riners HospitalHematocrit (Bld) [Volume fraction]33.5 %Low35 - 47 %[facility]riners HospitalHemoglobin (Bld) [Mass/Vol] 11.3 g/dLLow11.7 - 15.5 g/dLCincinnati Shriners HospitalInterpretation and review of laboratory resultsAbnormalCincinnati Shriners HospitalMCH (RBC) [Entitic mass]29.8 pg 27 - [address] [facility] HospitalMCHC (RBC) [Mass/Vol]33.9 g/dL32 - 36 g/dL [facility]ers HospitalMCV (RBC) [Entitic vol]88 fL80 - 100 [facility] HospitalPlatelet mean volume (Bld) [Entitic vol]9.9 fL7 - 12 [facility] HospitalPlatelets (Bld) [#/Vol]187 10*3/[facility] Medical CenterRBC (Bld) [#/Vol] 3.81 10*6/[facility] Medical CenterWBC LM Ql (Sput)14.6HighCarondelet Healthyphilis Total (Unknown Syphilis Status)on 12-24-2024T. pallidum IgG+IgM IA Ql (S)[facility] HospitalT. pallidum IgG+IgM IA Ql (S)on 56-60-4451Nujnqnamibuzyd and review of laboratory results NormalCincinnati Shriners HospitalNON REACTIVE No serologic evidence of infection to Treponema pallidum. Repeat testing may be considered in patients with suspected acute or primary syphilis in 2 to 4 weeks. [facility] HealthCBC (NO DIFF)on 12-23-2024 Erythrocyte distribution width (RBC) [Ratio]14.9 %Ywzbvq96.5-15[facility] HospitalComment on above:Performed By: #### CBC, 33310-2, 04018-1, AHP, 14326- 5, 83381-7, 55807-0 #### [facility] ([id number]) [address], [address] [place], [place] [address]Aanhmiuuqb (Bld) [Volume fraction]39.9 %Gdffga06-56XxsHiozwaMethodist Hospital NortheastComment on above:Performed By: #### CBC, 74757-9, 40130-7, AHP, 95522-5, 33134-4, 28920-7 #### [facility] ([id number]) [address], [address] [place], [place] [address]Osilvtitxd (Bld) [Mass/Vol]13.4 g/gUEufqhn68.7-15.5PKettering Health Greene MemorialComment on above:Performed By: #### CBC, 07922-8, 34714-3, AHP, 61041-0, 94681-4, 52064-7 #### [facility] ([id number]) [address], [address] [place], [place] [address]NQA (RBC) [Entitic mass]29.2 rsTrihsn37-21CfsEzpbxiMethodist Hospital NortheastComment on above:Performed By: #### CBC, 33026-4, 33378-8, AHP, 84085-2, 09244-7, 54573-0 #### [facility] ([id number]) [address], [address] [place], [place] [address]FEIP (RBC) [Mass/Vol]33.7 g/vGCsldce45-37RggZnkvfaMethodist Hospital NortheastComment on above:Performed By: #### CBC, 10088-0, 63261-6, AHP, 91301-0, 17633-2, 43787-7 #### [facility] ([id number]) [address], [address] [place], [place] [address]ZVJ (RBC) [Entitic vol]87 lQYewrsy60-764TccKaaauu [facility] HospitalComment on above:Performed By: #### CBC, 74667-9, 35042-1, AHP, 08600-5, 55894-3, 88370-4 #### [facility] ([id number]) [address], [address] [place] [address]Csjctiob mean volume (Bld) [Entitic vol]9.6 fLNormal7-12 [facility] HospitalComment on above:Performed By: #### CBC, 49110-5, 80742-9, AHP, 00198-3, 89860-4, 30422-2 #### [facility] ([id number]) [address], [address] [place] [address]Cditgqufr (Bld) [#/Vol]208 10*3/dTOxnhey115-351PysZxsmpv [facility] HospitalComment on above:Performed By: #### CBC, 72922-3, 29934-6, AHP, 50647- 5, 77086-8, 45747-0 #### [facility] ([id number]) [address], [address] [place] [address]RXO COUNT4.59 X10E12/LNormal3.8-5.2PKettering Health Greene Memorial Comment on above:Performed By: #### CBC, 86345-9, 42967-0, AHP, 96762-3, 96805- 4, 57252-8 #### [facility] ([id number]) [address], [address] [place], [place] [address]XXY (Bld) [#/Vol]8.6 10*3/uLNormal4-11[facility] Comment on above:Performed By: #### CBC, 65479-5, 18262-0, AHP, 02696-4, 53181- 4, 57483-2 #### [facility] ([id number]) [address], [address] [place] [address]JVL without diffon 26-89-7060Bmldqzwvpqa distribution width (RBC) [Ratio]14.9 %11.5 - 15 %[facility]riners HospitalHematocrit (Bld) [Volume fraction]39.9 %35 - 47 %[facility]ers HospitalHemoglobin (Bld) [Mass/Vol]13.4 g/dL11.7 - 15.5 g/dLCincinnati Shriners HospitalInterpretation and review of laboratory resultsNormalCincinnati Shriners HospitalMCH (RBC) [Entitic mass]29.2 pg27 - [address] Elizabeth Boardman HospitalMCHC (RBC) [Mass/Vol]33.7 g/dL32 - 36 g/dL [facility] HospitalMCV (RBC) [Entitic vol]87 fL80 - 100 [facility] HospitalPlatelet mean volume (Bld) [Entitic vol]9.6 fL7 - 12 [facility] HospitalPlatelets (Bld) [#/Vol]208 10*3/[facility] Medical CenterRBC (Bld) [#/Vol] 4.59 10*6/[facility] CenterWBC LM Ql (Sput)8.6Jeff[facility] Abington HospitalPST TOPon 21-30-6063Lxhps TubeAuto ResultedCarondelet HealthYPHILIS TOTAL(UNKNOWN SYPHILIS STATUS)on 98-71-2994LNRSOJZO TOTAL<^0.2Normal<=0.8[facility] HospitalComment on above:Order Comment: NON REACTIVENo serologic evidence of infection to Treponema pallidum. Repeat testingmay be considered in patients with suspected acute or primary syphilis in 2 to 4 weeks.Performed By: #### CBC, 64763-6, 73063-1, P, 73837-9, 24605-8, 88829-8 #### [facility] ([id number]) [address] [place], [place] [address]GDPC AND SCREENon 78-96-9817PZX_ICFLPMCUgqipnXpdLtxeph [facility] HospitalComment on above:Performed By: #### CBC, 61627-2, 00649-7, AHP, 04400-2, 63496-2, 21253-8 #### [facility] ([id number]) [address], [address] [place], [place] [address]RH_INTEPPositiveNormalOhioHealth Riverside Methodist HospitalComment on above:Performed By: #### DEMETRIO, 46731-8, 73407-6, ASHLEY, 62987-1, 27472-7, 79578-2 #### [facility] ([id number]) [address], [address] [place], [place] [address]Mvax and screen(includes indirect callie)on 85-73-3287USX and Rh group Nom (Bld)ABProMedica Health SystemABO and Rh group Nom (Bld)Positive [facility]ers HospitalBlood group antibody screen.cells I+II+III QlNegative [facility] CenteredicBurnett Medical Center SystemUS PREG TRANSABD FU PER FETUon 53-56-5744VK PREG TRANSABD FU PER FETUUS PREG TRANSABD FU PER FETU Clinical history: Size and dates Single live [...] by Gabriele Person MD on 12/21/2024 10:26 AMNormalOhioHealth Grady Memorial Hospital (NO DIFF)on 67-93-6576Byuypmwhajd distribution width (RBC) [Ratio] 15.5 %High11.5-15[facility] HospitalComment on above:Performed By: #### DEMETRIO, 43430-1, 63628-2, Ayo, 31699-2, 84455-1, 05709-1 #### [facility] ([id number]) [address], [address] [place], [place] [address]Wyhbqlbwjh (Bld) [Volume fraction]38.1 %Wjhhxw72-47MewXgtfqp [facility] Shore HospitalComment on above:Performed By: #### CBC, 82710-0, 36947-4, AHP, 83762-9, 40842-1, 28249-4 #### [facility] ([id number]) [address], [address] [place], [place] [address]Ajphcgmagx (Bld) [Mass/Vol]12.8 g/wSMfwozh75.7-15.5PKettering Health Greene MemorialComment on above:Performed By: #### CBC, 70522-4, 79420-5, AHP, 48121-0, 18894-2, 00139-6 #### [facility] ([id number]) [address], [address] [place], [place] [address]TJN (RBC) [Entitic mass]29.4 uhPpimib23-79RlcEztlurMethodist Hospital NortheastComment on above:Performed By: #### CBC, 36970-0, 42046-8, AHP, 12220-1, 58404-0, 94554-1 #### [facility] ([id number]) [address], [address] [place], [place] [address]TWDC (RBC) [Mass/Vol]33.7 g/bSMnnvja18-02UfjLtpulqMethodist Hospital NortheastComment on above:Performed By: #### CBC, 83454-2, 38866-5, AHP, 80045-9, 16476-3, 27709-3 #### [facility] ([id number]) [address], [address] [place], [place] [address]FOJ (RBC) [Entitic vol]87 zPSzessz55-068RknNttebw [facility] HospitalComment on above:Performed By: #### CBC, 92552-6, 86880-8, AHP, 13194-3, 65478-7, 49453-4 #### [facility] ([id number]) [address], [address] [place], [place] [address]Ikdlpthw mean volume (Bld) [Entitic vol]9.5 fLNormal7-12 [facility] HospitalComment on above:Performed By: #### CBC, 38899-9, 00226-2, AHP, 17411-8, 56785-4, 38461-0 #### [facility] ([id number]) [address], [address] [place] [address]Fkpjcwwlk (Bld) [#/Vol]205 10*3/dSEmrlko627-881CwbKgfxwe [facility] HospitalComment on above:Performed By: #### CBC, 45486-7, 58525-1, AHP, 43991- 5, 62546-4, 92987-9 #### [facility] ([id number]) [address], [address] [place], [place] [address]CIJ COUNT4.36 X10E12/LNormal3.8-5.2PKettering Health Greene Memorial Comment on above:Performed By: #### CBC, 24453-3, 01910-6, AHP, 99573-2, 58513- 4, 18633-6 #### [facility] ([id number]) [address], [address] [place] [address]IID (Bld) [#/Vol]8.6 10*3/uLNormal4-11[facility] Comment on above:Performed By: #### CBC, 12403-8, 65849-6, AHP, 44463-4, 99265- 4, 00088-1 #### [facility] ([id number]) [address], [address] [place], [place] [address]DMTMSSOMJTASE METABOLIC PANELon 86-27-9283Ajmfpza [Mass/Vol]2.8 g/dLLow3.2-5.3PKettering Health Greene MemorialComment on above:Performed By: #### CBC, 82286-9, 02048-4, AHP, 37182-3, 39544-1, 71548-7 #### [facility] ([id number]) [address], [address] [place], [place] [address]DVS [Catalytic activity/Vol]88 U/LShupdb16-563MtwVygcjzMethodist Hospital NortheastComment on above:Performed By: #### CBC, 76764-2, 08992-8, AHP, 45906-4, 58569-9, 51387-9 #### [facility] ([id number]) [address], [address] [place], [place] [address]VYO [Catalytic activity/Vol]10 U/LNormal<=31PKettering Health Greene MemorialComment on above:Performed By: #### CBC, 61975-4, 79551-5, AHP, 02769-7, 23663-7, 70349-2 #### [facility] ([id number]) [address], [address] [address] [place], [place] [address]Awoxh gap [Moles/Vol]10 mmol/LNormal5-15ProMethodist Hospital NortheastComment on above:Performed By: #### CBC, 66371-1, 08669-0, AHP, 46023-1, 57488-2, 72650-2 #### [facility] ([id number]) [address], [address] [place] [address]PTL [Catalytic activity/Vol]13 U/LNormal<=41ProSelect Medical Specialty Hospital - Trumbull HospitalComment on above:Performed By: #### CBC, 85536-4, 21023-1, AHP, 66642-4, 88087-1, 95411-2 #### [facility] ([id number]) [address], [address] [place], [place] [address]Dulqpzppk [Mass/Vol]0.5 mg/dLNormal0.3-1.2PKettering Health Greene MemorialComment on above:Performed By: #### CBC, 57033-6, 77309-8, AHP, 04515-1, 59237-9, 40854-4 #### [facility] ([id number]) [address], [address] [place], [place] [address]Optabej [Mass/Vol]9.4 mg/dLNormal8.5-10.5PKettering Health Greene MemorialComment on above:Performed By: #### CBC, 36850-9, 57399-4, AHP, 32765-3, 06816-1, 16920-4 #### [facility] ([id number]) [address], [facility] [address] [place], [place] [address]Squibhng [Moles/Vol]107 mmol/KWcmskp30-494AueRuewtcMethodist Hospital NortheastComment on above:Performed By: #### CBC, 70292-2, 98874-0, AHP, 89312-0, 78401-2, 53361-2 #### [facility] ([id number]) [address], [facility] [address] [place], [place] [address]EQ4 [Moles/Vol]21 mmol/NXsd17-00LxfLzbziaKettering Health Greene Memorial Comment on above:Performed By: #### CBC, 29421-3, 44229-3, AHP, 07174-8, 49142- 4, 25677-7 #### [facility] ([id number]) [address], [facility] [address] [place] [address]Njmvdcywiv [Mass/Vol]0.52 mg/dLNormal0.40-1.00ProMethodist Hospital NortheastComment on above:Result Comment: METHOD TRACEABLE TO IDMS STANDARD Performed By: #### CBC, 28519-7, 35736-1, AHP, 95309-2, 29880-9, 67101-0 #### [facility] ([id number]) [address] [address] [place], [place] [address]COGB (CKD-EPI) NON-RACE DEPENDENT>^90Normal>=60ProMethodist Hospital NortheastComment on above:Result Comment: eGFR not reported due to non-numeric value for Creatinine. Reported eGFR is based on the CKD-EPI 2020 equation that does not use a race coefficient.Performed By: #### CBC, 50137-7, 84399-2, AHP, 20477- 5, 78553-4, 30089-9 #### [facility] ([id number]) [address], [address] [place] [address]Vvrzwsz [Mass/Vol]76 mg/rBPwudcv48-71PrsQqrqdrMethodist Hospital Northeast Comment on above:Performed By: #### CBC, 40251-8, 97758-4, AHP, 63582-6, 81730- 4, 17629-3 #### [facility] ([id number]) [address], [address] [place], [place] [address]Hkoolqelx [Moles/Vol]3.7 mmol/LNormal3.5-5.0ProMethodist Hospital NortheastComment on above:Performed By: #### CBC, 63618-4, 31324-5, AHP, 66759-4, 66309-8, 88429-3 #### [facility] ([id number]) [address], [address] [place] [address]Msrdvlf [Mass/Vol]6.4 g/dLNormal6.0-8.0ProMethodist Hospital NortheastComment on above:Performed By: #### CBC, 92924-9, 61096-3, AHP, 26993-0, 55158-4, 39256-4 #### [facility] ([id number]) [address], [address] [place], [place] [address]Xhetvo [Moles/Vol]138 mmol/GOodjbo355-716JdiPwunfo Fremont HospitalComment on above:Performed By: #### CBC, 40822-4, 57469-1, AHP, 67971-5, 28334-2, 23333-3 #### [facility] ([id number]) [address], [address] [place], [place] [address]Mpic nitrogen [Mass/Vol]9 mg/dLNormal5-23ProMethodist Hospital NortheastComment on above:Performed By: #### CBC, 39401-2, 40829-3, AHP, 87030-8, 06759-7, 44153-8 #### [facility] ([id number]) [address], [address] [place], [place] [address]SUJcr 25-52-1458WOK15 U/SIls311-297XqzYvzgpjOhioHealth Riverside Methodist Hospital Comment on above:Performed By: #### CBC, 09083-2, 24220-5, AHP, 88603-9, 37564- 4, 81078-3 #### [facility] ([id number]) [address], [address] [place], [place] [address]ZGHZSVA CREAT RATIOon 12-11-2024U/PRO/WET PAN MIXER RATIO CALC0.13Normal <=0.20OhioHealth Riverside Methodist HospitalComment on above:Order Comment: Nephrotic Syndrome is associated with ratios >3.5Result Comment: Urine Protein / Creatinine Ratio not calculated due to non-numeric component.Performed By: #### CBC, 95825-9, 80460-7, AHP, 25870-1, 80300-1, 44336-0 #### [facility] ([id number]) [address], [address] [place], [place] [address]TQAIR CREATININE,RDM62.56 mg/dLNormalOhioHealth Riverside Methodist Hospital Comment on above:Order Comment: Nephrotic Syndrome is associated with ratios >3.5Performed By: #### CBC, 83895-6, 13951-9, AHP, 04215-8, 01498-3, 95643-1 #### [facility] ([id number]) [address], [address] [place], [place] [address]FHJHQ PROTEIN, RANDOM (MG/L)80 mg/LNormal<120ProMethodist Hospital NortheastComment on above:Order Comment: Nephrotic Syndrome is associated with ratios >3.5Performed By: #### CBC, 09337-9, 83612-2, AHP, 58119-6, 29568-2, 46671-4 #### [facility] ([id number]) [address], [address] [place], [place] [address]IBXL ACIDon 62-49-5708Kcvzc [Mass/Vol]4.3 mg/dLNormal2.6-7.[address] [facility] Medical CenterComment on above:Performed By: #### CBC, 44221-0, 19760-6, AHP, 24794-3, 17336-8, 44270-6 #### [facility] ([id number]) [address], [address] [place], [place] [address]NXBGSQUTWDzn 48-95-3298Sfrpuenja sediment LM Ql (Urine sed) PresentAbnormalNoneProMedica St Luke Medical CenterComment on above:Performed By: #### CBC, 90291-8, 72599-4, AHP, 78261-0, 37811-8, 52358-7 #### [facility] ([id number]) [address], [address] [place], [place] [address]Gcloedmhx Ql (U)NegativeNormalNegativeOhioHealth Riverside Methodist Hospital Comment on above:Performed By: #### CBC, 83728-0, 16618-7, AHP, 09962-9, 73845- 4, 11676-9 #### [facility] ([id number]) [address], [address] [place], [place] [address]AVJVV/HGBNegativeNormalNegativeProMethodist Hospital NortheastComment on above:Performed By: #### CBC, 24864-6, 49284-5, AHP, 43375-7, 05496-3, 73621-6 #### [facility] ([id number]) [address], [address] [place], [place] [address]Zjzoo (U)YellowNormalYellowOhioHealth Riverside Methodist HospitalComment on above:Performed By: #### CBC, 58822-2, 56476-7, AHP, 33966-1, 01911-1, 89893-6 #### [facility] ([id number]) [address], [address] [place], [place] [address]Scxxbbn Ql (U)NegativeNormalNegative, 250 mg/dLProMethodist Hospital NortheastComment on above:Performed By: #### CBC, 64824-8, 67839-3, AHP, 03522- 5, 79621-4, 51665-0 #### [facility] ([id number]) [address], [address] [place], [place] [address]Rtluvla Ql (U)NegativeNormalNegativeOhioHealth Riverside Methodist Hospital Comment on above:Performed By: #### CBC, 14677-4, 03358-1, AHP, 38567-1, 52130- 4, 72113-0 #### [facility] ([id number]) [address], [address] [place], [place] [address]Eyiihkads esterase Test strip Ql (U)NegativeNormalNegative ProMValleyCare Medical CenterComment on above:Performed By: #### CBC, 14284-2, 76795-2, AHP, 01693-4, 76231-9, 01547-0 #### [facility] ([id number]) [address], [address] [place], [place] [address]Nwbkcdy Ql (U)NegativeNormalNegativeOhioHealth Riverside Methodist Hospital Comment on above:Performed By: #### CBC, 63481-3, 13880-4, AHP, 13560-1, 33319- 4, 82132-4 #### [facility] ([id number]) [address], [address] [place], [place] [address]AC,URINE6.7Gnfgdf9.0-8.5ProMedica St Luke Medical CenterComment on above:Performed By: #### CBC, 42500-9, 74708-5, AHP, 40582-7, 64488-5, 28935-5 #### [facility] ([id number]) [address], [address] [place], [place] [address]Llavhki Ql (U)NegativeNormalNegativeProMercy Health Tiffin Hospitalca [facility] Comment on above:Performed By: #### CBC, 18290-6, 68098-6, AHP, 43335-4, 35000- 4, 94555-7 #### [facility] ([id number]) [address], [address] [place], [place] [address]N.B.ZYJDH2Naxntk2-4VuyScrjsaKettering Health Greene MemorialComment on above: Performed By: #### CBC, 34568-9, 57656-0, AHP, 88920-5, 62878-7, 58422-4 #### [facility] ([id number]) [address], [address] [place], [place] [address]Xhpmatlp gravity (U) [Rel density]1.820Gxtbvx3.003-1.[address] Luke Medical CenterComment on above:Performed By: #### CBC, 14879-6, 28184-4, AHP, 60291-0, 35638-4, 05168-1 #### [facility] ([id number]) [address], [address] [place], [place] [address]MJICFJED EPITHELIUM>^91Dwqs0-3XnyKtwyoqKettering Health Greene MemorialComment on above:Performed By: #### CBC, 79542-1, 85024-6, AHP, 79198-5, 42736-7, 08081- 4 #### [facility] ([id number]) [address], [address] [place], [place] [address]QUMWPQBYVTzbiqsXmiewgzkKlnvbJiiOzczwn [facility]remont HospitalComment on above:Performed By: #### CBC, 30520-8, 77221-1, AHP, 70452-0, 98911-4, 46240-6 #### [facility] ([id number]) [address], [address] [place], [place] [address]XSMGOQVHQHMM6.2 eu/dLNormal0.2 eu/dL, 1.0 eu/dLProMedica St Luke Medical CenterComment on above:Performed By: #### CBC, 03574-5, 31225-1, AHP, 69163-0, 69548-2, 89021-7 #### [facility] ([id number]) [address], [address] [place], [place] [address]A.B.OFTEY2Hwxlxs0-8KwnXipzqo St Luke Medical CenterComment on above: Performed By: #### CBC, 57962-6, 22566-0, AHP, 89522-4, 19441-9, 54669-7 #### [facility] ([id number]) [address], [address] [place], [place] [address]LLCOI B SCREENon 85-20-8769KRAZN B SCREENCULTURE RESULTS NEGATIVE FOR GROUP B STREPTOCOCCUS BY NUCLEIC ACID AMPLIFICATIONJacobs Medical Center Ambulatory PPGComment on above:Performed By: #### SBSC #### [facility] ([facility]) [address] [place] [address] VIRUROGENITAL UREAPLASMA AND MYCOPLASMA SPECIES BY PCRon 26-06-9877WZECQRJCOX GENITALIUMNot detectedJacobs Medical Center Ambulatory PPGComment on above:Result Comment: INTERPRETIVE INFORMATION: Urogenital Ureaplasma and Mycoplasma Species by PCR A negative result does not rule out the presence of PCR inhibitors in the patient specimen or test-specific nucleic acid in concentrations below the level of detection by this test. This test was developed and its performance characteristics determined by [facility]. It has not been cleared or approved by the [place] Food and Drug Administration. This test was performed in a CLIA certified laboratory and is intended for clinical purposes. Performed By: [facility] [address] [place], [place] [id number] Rivet Flunky: Thomas Ramirez MD, PhD CLIA Number: [id number] By: #### UREMYC #### [facility] ([facility]) [address] [place] [address] VIRMYCOPLASMA HOMINISNot detectedJacobs Medical Center Ambulatory PPGComment on above:Performed By: #### UREMYC #### [facility]) [address] [place] [address] VIRUREAPLASMA AND MYCOPLASMA SOURCEUrineJacobs Medical Center Ambulatory PPGComment on above:Performed By: #### UREMYC #### [facility] ([facility]) [address] [place] [address] VIRUREAPLASMA PARVUMNot detectedJacobs Medical Center Ambulatory PPGComment on above:Performed By: #### UREMYC #### [facility] ([facility]) [address] [place] [address] VIRUREAPLASMA UREALYTICUMDetectedAbVencor Hospital Ambulatory PPGComment on above:Performed By: #### UREMYC #### [facility] ([facility]) [address] [place] [address] VIRPOCT EKGon 83-56-1099UzlZlyworMemorial Hospital WITH AUTO DIFFERENTIALon 34-00-7962JMVLLCZCG ABSOLUTE COUNT (10*3/UL) BY AUTOMATED COUNT0.1 10*3/uLNormal0.0-0.2ProMedBroadway Community HospitalComment on above: Performed By: #### CBC, 57191-4, 14367-1, AHP, 51390-0, 21773-1, 27525-1 #### [facility] ([id number]) [address] [place], [place] [address]CDFUQAQAO RELATIVE PERCENT BY AUTOMATED COUNT0.8 %Normal [facility] HospitalComment on above:Performed By: #### CBC, 44682-5, 79249-2, AHP, 54385-2, 68454-3, 32452-8 #### [facility] ([id number]) [address], [address] [place], [place] [address]TZHHMWXHQIJ DIFFERENTIAL TYPEAUTOMATED DIFFERENTIALNormal [facility] HospitalComment on above:Performed By: #### CBC, 36712-9, 86529-7, AHP, 85488-7, 71538-7, 92231-7 #### [facility] ([id number]) [address], [address] [place], [place] [address]Joopoqakjwv (Bld) [#/Vol]0.2 10*3/uLNormal0.0-0.4Ohio[facility] Methodist HospitalComment on above:Performed By: #### CBC, 87659-5, 73689-9, AHP, 20980-2, 61168-7, 97887-6 #### [facility] ([id number]) [address], [facility] [address] [place], [place] [address]VPTUBNXQJVS RELATIVE PERCENT BY AUTOMATED COUNT2.0 %Normal [facility] HospitalComment on above:Performed By: #### CBC, 26603-7, 45900-7, AHP, 37017-0, 44210-7, 01979-1 #### [facility] ([id number]) [address], [facility] [address] [place], [place] [address]Edzsnvobadk distribution width (RBC) [Ratio]13.8 %Srscps52.5-15 [facility] HospitalComment on above:Performed By: #### CBC, 51138-0, 32187-4, AHP, 66461-4, 55532-8, 51777-2 #### [facility] ([id number]) [address], [address] [place], [place] [address]Axtfapnhss (Bld) [Volume fraction]35.4 %Olewnt67-84IfeMmqawyOhioHealth Riverside Methodist HospitalComment on above:Performed By: #### CBC, 29236-8, 95883-6, AHP, 68446-2, 07407-5, 49079-8 #### [facility] ([id number]) [address], [address] [place], [place] [address]Hptimrbuiq (Bld) [Mass/Vol]11.8 g/nZTdbpet35.7-15.5PKettering Health Greene MemorialComment on above:Performed By: #### CBC, 12510-1, 63948-9, AHP, 54928-4, 33310-8, 32704-7 #### [facility] ([id number]) [address], [facility] [address] [place] [address]ISGOYWMBQLC ABSOLUTE COUNT (10*3/UL) BY AUTOMATED COUNT2.0 10*3/uLNormal1.0-3.5ProMedica St Luke Medical CenterComment on above:Performed By: #### CBC, 81209-7, 76185-7, AHP, 05627-6, 62124-5, 61087-7 #### [facility] ([id number]) [address] [address] [place], [place] [address]HAFAMCVLFYI RELATIVE PERCENT BY AUTOMATED COUNT22.7 %Normal ProMValleyCare Medical CenterComment on above:Performed By: #### CBC, 96508-4, 05340-2, AHP, 27815-6, 38189-0, 88041-7 #### [facility] ([id number]) [address], [facility] [address] [place], [place] [address]TRW (RBC) [Entitic mass]29.0 nlRqahhe90-33VnnUygzquMethodist Hospital NortheastComment on above:Performed By: #### CBC, 34938-6, 36397-0, AHP, 43904-7, 43395-0, 76732-7 #### [facility] ([id number]) [address], [address] [place], [place] [address]UINK (RBC) [Mass/Vol]33.3 g/nHPgqbpw50-67KqnJmhxtiMethodist Hospital NortheastComment on above:Performed By: #### CBC, 82547-1, 68329-8, AHP, 69002-9, 54605-4, 72548-6 #### [facility] ([id number]) [address] [address] [place], [place] [address]PXO (RBC) [Entitic vol]87 eHBtwbqd26-409GpwNkwvdk [facility]remont HospitalComment on above:Performed By: #### CBC, 62481-3, 60916-1, AHP, 84300-4, 88386-7, 71959-9 #### [facility] ([id number]) [address], [address] [place], [place] [address]DSOKPDQCR ABSOLUTE COUNT (10*3/UL) BY AUTOMATED COUNT0.6 10*3/uL Normal0.0-0.9ProMethodist Hospital NortheastComment on above:Performed By: #### CBC, 47237-9, 92822-2, AHP, 95589-8, 51992-0, 79979-2 #### [facility] ([id number]) [address], [address] [place], [place] [address]IBFDBCYTO RELATIVE PERCENT BY AUTOMATED COUNT6.6 %Normal [facility] HospitalComment on above:Performed By: #### CBC, 77910-0, 31154-6, AHP, 49640-4, 50133-1, 09563-8 #### [facility] ([id number]) [address], [address] [place], [place] [address]TYZVLRGMWAJ ABSOLUTE COUNT BY AUTOMATED COUNT5.8 10*3/uLNormal 1.5-6.6ProMethodist Hospital NortheastComment on above:Performed By: #### CBC, 96337- 6, 78138-4, AHP, 89607-7, 94902-3, 87417-6 #### [facility] ([id number]) [address], [address] [place], [place] [address]ZPKFKCOYATD RELATIVE PERCENT BY AUTOMATED COUNT67.9 %Normal [facility] HospitalComment on above:Performed By: #### CBC, 68537-8, 21737-5, AHP, 51411-5, 47163-5, 95575-1 #### [facility] ([id number]) [address], [address] [place], [place] [address]Hwmksfxt mean volume (Bld) [Entitic vol]9.8 fLNormal7-12 [facility] HospitalComment on above:Performed By: #### CBC, 78997-0, 32607-1, AHP, 55187-8, 97975-6, 70759-8 #### [facility] ([id number]) [address], [address] [place] [address]Souvjczqc (Bld) [#/Vol]230 10*3/dMVheykv193-840JvbKdbzrkOhioHealth Riverside Methodist HospitalComment on above:Performed By: #### CBC, 10631-6, 11666-1, AHP, 03497- 5, 33309-4, 71663-7 #### [facility] ([id number]) [address], [address] [place] [address]VEE COUNT4.06 X10E12/LNormal3.8-5.2PKettering Health Greene Memorial Comment on above:Performed By: #### CBC, 89200-0, 06403-8, AHP, 92587-5, 47767- 4, 91871-6 #### [facility] ([id number]) [address], [address] [place], [place] [address]TLB (Bld) [#/Vol]8.6 10*3/uLNormal4-11[facility] Comment on above:Performed By: #### CBC, 14208-0, 14196-8, AHP, 80325-2, 87767- 4, 90098-6 #### [facility] ([id number]) [address], [address] [place], [place] [address]IXZGBHEXov 80-38-1246Iyktoorl [Mass/Vol]112 ng/eJXzqlqv19-659 [facility] HospitalComment on above:Performed By: #### CBC, 10820-5, 53241-9, AHP, 08943-2, 18439-5, 03803-4 #### [facility] ([id number]) [address], [address] [place], [place] [address]TTED AND TIBCon 76-88-3855Pcfd [Mass/Vol]106 ug/nNVpvnnj85-457 [facility] HospitalComment on above:Performed By: #### CBC, 92174-5, 48281-0, AHP, 64299-2, 72799-8, 99023-4 #### [facility] ([id number]) [address], [address] [place], [place] [address]UVXV GNOPXUI771 ug/dHZatk872-349VjtZrypenOhioHealth Riverside Methodist Hospital Comment on above:Performed By: #### CBC, 78357-7, 13562-3, AHP, 27324-1, 64401- 4, 74453-5 #### [facility] ([id number]) [address], [address] [place], [place] [address]ZFSR RYGFZMTYOC50 % YKAKNBWSNWAvqymr55-27HutAytzfb [facility]ont HospitalComment on above:Performed By: #### CBC, 45693-9, 57531-5, AHP, 39223-3, 37462-6, 76799-3 #### [facility] ([id number]) [address], [address] [place], [place] [address]Ptrjdnittkp [Mass/Vol]308 mg/pGYcdrrc025-103XqaCmkukcOhioHealth Riverside Methodist HospitalComment on above:Performed By: #### CBC, 13285-9, 97215-9, AHP, 82523-6, 63879-1, 10734-6 #### [facility] ([id number]) [address], [address] [place], [place] [address]XSXHHSVHMX UREAPLASMA AND MYCOPLASMA SPECIES BY PCRon 10-09-2024 MYCOPLASMA GENITALIUMNot detectedNoSt. Joseph's Medical Center Ambulatory PPGComment on above:Result Comment: INTERPRETIVE INFORMATION: Urogenital Ureaplasma and Mycoplasma Species by PCR A negative result does not rule out the presence of PCR inhibitors in the patient specimen or test-specific nucleic acid in concentrations below the level of detection by this test. This test was developed and its performance characteristics determined by [employer]. It has not been cleared or approved by the [place] Food and Drug Administration. This test was performed in a CLIA certified laboratory and is intended for clinical purposes. Performed By: [facility] [employer] [address] [place] [address] Rivet Flunky: Thomas Ramirez MD, PhD CLIA Number: [id number] By: #### UREMYC #### [facility] ([facility]) [address] [place] [address] VIRMYCOPLASMA HOMINISNot detectedJacobs Medical Center Ambulatory PPGComment on above:Performed By: #### UREMYC #### [facility] ([facility]) [address] [place] [address] VIRUREAPLASMA AND MYCOPLASMA SOURCEUrineJacobs Medical Center Ambulatory PPGComment on above:Performed By: #### UREMYC #### [facility] ([facility]) [address] [place] [address] VIRUREAPLASMA PARVUMNot detectedJacobs Medical Center Ambulatory PPGComment on above:Performed By: #### UREMYC #### [facility] ([facility]) [address] [place] [address] VIRUREAPLASMA UREALYTICUMNot detectedJacobs Medical Center Ambulatory PPGComment on above:Performed By: #### UREMYC #### [facility] ([facility]) [address] [place] [address] VIRThyroid antibodies includes TPO and TGABon 40-21-9035Gexnwpcbflkyiw and review of laboratory resultsNoNovant Health Huntersville Medical CenterThyroglobulin Ab Johnston Memorial HospitalTPO Ab Formerly named [facility] Care CenterThyroid profile includes TSH FT4on 67-45-5520Sbph T4 [Mass/Vol]0.58 ng/dLLow0.61 - 1.60 ng/dLCincinnati Shriners HospitalInterpretation and review of laboratory resultsAbnoNovant Health Huntersville Medical CenterTS Qn2.51 m[IU]/LProMedica Arkansas Heart HospitalCBC WITH AUTO DIFFERENTIALon 82-04-4327DJDAWQUVQ ABSOLUTE COUNT (10*3/UL) BY AUTOMATED COUNT0.0 10*3/uLNormal0.0-0.2Pro[facility] [facility] Luke Medical CenterComment on above: Performed By: #### UA #### [facility] ([id number]) [address] [place], [place] [address]QLGIUVCBK RELATIVE PERCENT BY AUTOMATED COUNT0.5 %Normal [facility] HospitalComment on above:Performed By: #### UA #### [facility] ([id number]) [address] [place], [place] [address]KNAZHSRJMLN DIFFERENTIAL TYPEAUTOMATED DIFFERENTIALNormal [facility] HospitalComment on above:Performed By: #### UA #### [facility] ([id number]) [address], [facility] [address] [place], [place] [address]Gvfxirwjrdp (Bld) [#/Vol]0.1 10*3/uLNormal0.0-0.4[facility] HospitalComment on above:Performed By: #### UA #### [facility] ([id number]) [address], [address] [place], [place] [address]WRFNLCARNMC RELATIVE PERCENT BY AUTOMATED COUNT1.5 %Normal [facility] HospitalComment on above:Performed By: #### UA #### [facility] ([id number]) [address], [address] [place], [place] [address]Watgmkxtemr distribution width (RBC) [Ratio]13.3 %Sweynx16.5-15 [facility] HospitalComment on above:Performed By: #### UA #### [facility] ([id number]) [address], [address] [place], [place] [address]Dldhrykwav (Bld) [Volume fraction]35.9 %Ukpinv07-34WnwCmlrhxMethodist Hospital NortheastComment on above:Performed By: #### UA #### [facility] ([id number]) [address], [address] [place], [place] [address]Ydzkywngvo (Bld) [Mass/Vol]12.1 g/qQMpdujd18.7-15.5PKettering Health Greene MemorialComment on above:Performed By: #### UA #### [facility] ([id number]) [address], [address] [place], [place] [address]ZVQHYTTYCKT ABSOLUTE COUNT (10*3/UL) BY AUTOMATED COUNT1.8 10*3/uLNormal1.0-3.5PKettering Health Greene MemorialComment on above:Performed By: #### UA #### [facility] ([id number]) [address], [address] [place], [place] [address]YCZSVFDXDGW RELATIVE PERCENT BY AUTOMATED COUNT23.9 %Normal [facility] HospitalComment on above:Performed By: #### UA #### [facility] ([id number]) [address], [address] [place], [place] [address]BMP (RBC) [Entitic mass]29.7 tuEeoirm56-63DxyMdguupOhioHealth Riverside Methodist HospitalComment on above:Performed By: #### UA #### [facility] ([id number]) [address], [address] [place], [place] [address]URUC (RBC) [Mass/Vol]33.8 g/pBPovghu11-81IreUbgodzMethodist Hospital NortheastComment on above:Performed By: #### UA #### [facility] ([id number]) [address], [address] [place], [place] [address]IOZ (RBC) [Entitic vol]88 yJHmygae79-364WeuQqtoceOhioHealth Riverside Methodist HospitalComment on above:Performed By: #### UA #### [facility] ([id number]) [address], [address] [place], [place] [address]UFLLTECMY ABSOLUTE COUNT (10*3/UL) BY AUTOMATED COUNT0.7 10*3/uL Normal0.0-0.9[facility] HospitalComment on above:Performed By: #### UA #### [facility] ([id number]) [address], [address] [place] [address]WMRMNHWHI RELATIVE PERCENT BY AUTOMATED COUNT8.9 %Normal [facility] HospitalComment on above:Performed By: #### UA #### [facility] ([id number]) [address] [place] [address]SUBFBAIICZY ABSOLUTE COUNT BY AUTOMATED COUNT4.9 10*3/uLNormal 1.5-6.6[facility] HospitalComment on above:Performed By: #### UA #### [facility] ([id number]) [address] [place] [address]CHFBTHHAQBB RELATIVE PERCENT BY AUTOMATED COUNT65.2 %Normal [facility] HospitalComment on above:Performed By: #### UA #### [facility] ([id number]) [address] [address] [place], [place] [address]Gptsjvof mean volume (Bld) [Entitic vol]9.8 fLNormal7-12 [facility] HospitalComment on above:Performed By: #### UA #### [facility] ([id number]) [address], [address] [place] [address]Qcskllwvz (Bld) [#/Vol]257 10*3/cBIlqdiy000-658BvjZlwjiu [facility]ont HospitalComment on above:Performed By: #### UA #### [facility] ([id number]) [address], [address] [place] [address]HNL COUNT4.09 X10E12/LNormal3.8-5.2PKettering Health Greene Memorial Comment on above:Performed By: #### UA #### [facility] ([id number]) [address], [address] [place], [place] [address]JEC (Bld) [#/Vol]7.6 10*3/uLNormal4-11[facility] Comment on above:Performed By: #### UA #### [facility] ([id number]) [address] [place] [address], [address] [place], [place] [address]IXE auto differentialon 99-84-2886Zmxifdzec (Bld) [#/Vol]0 10*3/uL0.0 - 0.2 10*3/uLCleveland Clinic Marymount Hospital SystemBasophils/100 WBC (Bld)0.5 % [facility]ers HospitalDifferential cell count method Nom (Bld)AUTOMATED DIFFERENTIALCincinnati Shriners HospitalEosinophils (Bld) [#/Vol]0.1 10*3/uL0.0 - 0.4 10*3/uLCleveland Clinic Marymount Hospital SystemEosinophils/100 WBC (Bld)1.5 %[facility] SystemErythrocyte distribution width (RBC) [Ratio]13.3 %11.5 - 15 %[facility] SystemHematocrit (Bld) [Volume fraction]35.9 %35 - 47 %[facility] HospitalHemoglobin (Bld) [Mass/Vol]12.1 g/dL11.7 - 15.5 g/dLCincinnati Shriners HospitalLymphocytes (Bld) [#/Vol]1.8 10*3/uL1.0 - 3.5 10*3/uLCleveland Clinic Marymount Hospital SystemLymphocytes/100 WBC (Bld)23.9 %[facility]ers HospitalMCH (RBC) [Entitic mass]29.7 pg27 - [address] Elizabeth Boardman HospitalMCHC (RBC) [Mass/Vol]33.8 g/dL32 - 36 g/dLCincinnati Shriners HospitalMCV (RBC) [Entitic vol]88 fL80 - 100 [facility] HospitalMonocytes (Bld) [#/Vol]0.7 10*3/uL0.0 - 0.9 10*3/uLProSelect Medical [facility] SystemMonocytes/100 WBC (Bld)8.9 %[facility] SystemNeutrophils (Bld) [#/Vol]4.9 10*3/uL1.5 - 6.6 10*3/[facility] Medical CenterNeutrophils/100 WBC (Bld)65.2 %[facility]ers HospitalPlatelet mean volume (Bld) [Entitic vol]9.8 fL 7 - 12 [facility] SystemPlatelets (Bld) [#/Vol]257 10*3/[facility] SystemRBC (Bld) [#/Vol]4.09 10*6/[facility] Medical CenterWBC LM Ql (Sput)7.6Doylestown HealthFERRITINon 09-18-2024 Ferritin [Mass/Vol]6 ng/iBBfm11-981RxjRjdxhgOhioHealth Riverside Methodist HospitalComment on above: Performed By: #### CBC, 43501-0, 96406-2, FELICITYP, 65906-0, 41828-2, 75046-1 #### [facility] ([id number]) [address], [address] [place] [address]JRZ 1H POST 50G LOADon 56-21-1453KUWCLLS, 1HR POST 50GM LOAD83 mg/wDOsfqgd45-168TimQbrzcvOhioHealth Riverside Methodist HospitalComment on above:Performed By: #### CBC, 73060-4, 15414-2, AHP, 14817-8, 52870-4, 67951-3 #### [facility] ([id number]) [address] [facility] [place] [address]FSLA AND TIBCon 54-81-3764Qgoo [Mass/Vol]45 ug/hCXmh14-042 [facility] HospitalComment on above:Performed By: #### UA #### [facility] ([id number]) [address] [place], [place] [address]ZYMT XNQMOBH204 ug/sMRxvk083-195YwjDxgsrzOhioHealth Riverside Methodist Hospital Comment on above:Performed By: #### UA #### [facility] ([id number]) [address], [address] [place] [address]JCTF SATURATION9 % UXBCMWFAAHYsl36-81FsdPmpklu [facility] Comment on above:Performed By: #### UA #### [facility] ([id number]) [address] [place], [place] [address]Vubsdcrjwwr [Mass/Vol]342 mg/vISarp443-644JvmWiezwyOhioHealth Riverside Methodist HospitalComment on above:Performed By: #### UA #### [facility] ([id number]) [address], [address] [place], [place] [address]Kdxk and TIBCon 02-79-6367Tufrprcnwmgzoe and review of laboratory resultsAbnormalProBaypointe Hospital Health SystemIron [Mass/Vol]45 ug/dLLow50 - 170 ug/dLCleveland Clinic Marymount Hospital SystemIron binding capacity [Mass/Vol]479 ug/iGQyug182 - 425 ug/dLProParkview HealthIron saturation [Mass fraction]9LowProSelect Medical [facility] Dublin SystemTransferrin [Mass or moles/Vol]342 mg/kUHqtv480 - 336 mg/dL [facility] HospitalProSelect Medical [facility] SystemSYPHILIS TOTAL(UNKNOWN SYPHILIS STATUS)on 33-70-7645KFLFDAYK TOTAL<^0.2Normal<=0.8[facility] Comment on above:Order Comment: NON REACTIVENo serologic evidence of infection to Treponema pallidum. Repeat testingmay be considered in patients with suspected acute or primary syphilis in 2 to 4 weeks.Performed By: #### CBC, 23981-2, 51036-3, AHP, 69934-9, 35323-7, 68595-7 #### [facility] ([id number]) [address], [address] [place], [place] [address]APKPATY PROFILE INCLUDES TSH FT4on 13-09-6460Rzdj T4 [Mass/Vol] 0.65 ng/dLNormal0.61-1.60[facility] HospitalComment on above:Performed By: #### CBC, 35978-8, 51613-1, AHP, 21009-3, 53575-3, 87774-2 #### [facility] ([id number]) [address] [place], [place] [address]WSJ4.80 uIU/mLHigh0.49-4.67[facility] HospitalComment on above:Performed By: #### CBC, 81357-1, 55238-2, [facility], 41857-1, 37834-1, 98394-5 #### [facility] ([id number]) [address], [address] [place], [place] [address]QAMKOMF D 25 HYDROXYon 26-11-9737YNMAWNN D 25 HYD TOT36.8 ng/mL Nkrrns96.0-100.0[facility] HospitalComment on above:Order Comment: Vitamin D status 25 [place] Vitamin D Deficiency <20 ng/mLInsufficiency 20-29 ng/mLSufficiency 30-100 ng/mLToxicity >100 ng/mLNOTE: A pediatric reference range has not been established by the casket upholsterer of this kit. The [place] [employer] recommends a Vitamin D level of = or >20ng/mL in infants and children.Performed By: #### CBC, 69597-5, 89003-9, [facility], 84929-1, 19854-0, 96519-7 #### [facility] ([id number]) [address], [address] [place], [place] [address]GLU SINGLE MARKER SCRN, MATERNAL, SERUMon 96-54-7648PBV SINGLE MARKER SCRN, MATERNAL, SERUMSEE COMMENTSNormalProMethodist Hospital NortheastComment on above:Result Comment: Test Result Flag Unit RefValue AFP Single Marker SCRN, Maternal, S Results Summary Normal risk Neural tube defect risk estimate 1/,000 AFP 31.0 ng/mL AFP MoM 0.89 MoM <2.50 INTERPRETATION Screen negative for neural tube defects. RECOMMENDED FOLLOW UP None. Specimen collection date 07/15/24 Maternal date of 89 Calculated age at BELKIS 29 years Maternal Weight 134 lbs Insulin dependent diabetes No Patient race non-Black Current cigarette smoking status non-Smoker BELKIS by U/S scan 12/30/2024 GA on collection by U/S scan 16,0 wk,d GA used in risk estimate Scan estimate Number of Fetuses 1 Number of Chorions Not applicable IVF No Prev w/ Neural Tube Defect No Patient or father of baby has a NTD No Initial or repeat testing Initial testing Physician Phone Number [phone] GENERAL TEST INFORMATION SEE COMMENTS This screening provides an estimation of risk, not a diagnosis. Incorrect or incomplete information may significantly alter results. Results may be unreliable in twin pregnancies with a demise. Results are not available for pregnancies with triplets and higher-order multiples. A positive result occurs when the AFP MoM equals or exceeds 2.5. Screen results and family history influence individual risk. If there is a family history of a neural tube defect, chromosome abnormality, or other inherited condition, consider the option of a genetic consultation. For further information, please contact the maternal screening laboratory at . ADDITIONAL INFORMATION This test was developed and its performance characteristics determined by [facility] in a manner consistent with CLIA requirements. This test has not been cleared or approved by the U.S. Food and Drug Administration. Test Performed by: [facility] [address] [place] [address] Dog Show Judge: Katy Villatoro Ph.D.; CLIA# [id number] By: #### UA #### [facility] ([id number]) [address] [facility], [address] [place], [place] [address]Zhkkt Free Cell DNA (Non-[facility])on 60-14-7489Mgwwmiakqpmynz and review of laboratory resultsNormalVA hospital without diffon 40-47-2771Nbisrhnmbia distribution width (RBC) [Ratio] 13.3 %11.5 - 15.0 %[facility]riners HospitalHematocrit (Bld) [Volume fraction]37.6 %35 - 47 %[facility]ers HospitalHemoglobin (Bld) [Mass/Vol]12.7 g/dL11.7 - 15.5 g/dLCincinnati Shriners HospitalMCH (RBC) [Entitic mass]29.5 pg27 - [address] Elizabeth Boardman HospitalMCHC (RBC) [Mass/Vol]33.8 g/dL32 - 36 g/dLCincinnati Shriners Hospital MCV (RBC) [Entitic vol]87 fL80 - 100 [facility] HospitalPlatelet mean volume (Bld) [Entitic vol]10 fL7 - 12 [facility] HospitalPlatelets (Bld) [#/Vol]243 10*3/[facility] Medical CenterRBC (Bld) [#/Vol]4.31 10*6/[facility] Medical CenterWBC corrected for nucl RBC Auto (Bld) [#/Vol]7Doylestown HealthCOMPLETE BLOOD COUNTon 47-62-6792Xxzfjcoyvvh distribution width (RBC) [Ratio]13.3 %Aoszrs56.5-15.0[facility] Comment on above:Performed By: #### UA #### [facility] ([id number]) [address], [address] [place], [place] [address]Iuvwzruygf (Bld) [Volume fraction]37.6 %Cuessu11-19FvxMblfshOhioHealth Riverside Methodist HospitalComment on above:Performed By: #### UA #### [facility] ([id number]) [address], [address] [place], [place] [address]Atkviwxlhs (Bld) [Mass/Vol]12.7 g/tYJsaeht16.7-15.5PKettering Health Greene MemorialComment on above:Performed By: #### UA #### [facility] ([id number]) [address], [address] [place], [place] [address]CQN (RBC) [Entitic mass]29.5 pjKtedmt65-12OjqKibrszOhioHealth Riverside Methodist HospitalComment on above:Performed By: #### UA #### [facility] ([id number]) [address], [address] [place], [place] [address]RRIH (RBC) [Mass/Vol]33.8 g/tSZjxcgh65-96KkoHxglysMethodist Hospital NortheastComment on above:Performed By: #### UA #### [facility] ([id number]) [address], [address] [place], [place] [address]XXO (RBC) [Entitic vol]87 lCStzmqx13-236NjlMfvlhx [facility] HospitalComment on above:Performed By: #### UA #### [facility] ([id number]) [address], [address] [place], [place] [address]Oxwajnxk mean volume (Bld) [Entitic vol]10.0 fLNormal7-12 [facility] HospitalComment on above:Performed By: #### UA #### [facility] ([id number]) [address], [address] [place], [place] [address]Jqnonhnbq (Bld) [#/Vol]243 10*3/xAGnpmah040-326NauGvshac [facility] HospitalComment on above:Performed By: #### UA #### [facility] ([id number]) [address], [address] [place], [place] [address]IEM COUNT4.31 X10E12/LNormal3.80-5.20[facility] Comment on above:Performed By: #### UA #### [facility] ([id number]) [address], [address] [place], [place] [address]SAN (Bld) [#/Vol]7.0 10*3/uLNormal4.0-11.0[facility] HospitalComment on above:Performed By: #### UA #### [facility] ([id number]) [address], [address] [place], [place] [address]VVDIJBJBFVNSS METABOLIC PANELon 36-74-8098Mtkcjsc [Mass/Vol]4.0 g/dLNormal3.2-5.3PKettering Health Greene MemorialComment on above:Performed By: #### UA #### [facility] ([id number]) [address], [address] [place], [place] [address]CUM [Catalytic activity/Vol]32 U/GQkk83-358MkvEqvjfwMethodist Hospital NortheastComment on above:Performed By: #### UA #### [facility] ([id number]) [address], [address] [place], [place] [address]CPE [Catalytic activity/Vol]8 U/LNormal0-31PKettering Health Greene MemorialComment on above:Performed By: #### UA #### [facility] ([id number]) [address], [address] [place], [place] [address]Yhbsm gap [Moles/Vol]7 mmol/LNormal5-15ProMethodist Hospital NortheastComment on above:Performed By: #### UA #### [facility] ([id number]) [address], [address] [place], [place] [address]RRI [Catalytic activity/Vol]12 U/LNormal0-41ProMethodist Hospital NortheastComment on above:Performed By: #### UA #### [facility] ([id number]) [address], [address] [place], [place] [address]Pyxlrhqqk [Mass/Vol]0.4 mg/dLNormal0.3-1.2PKettering Health Greene MemorialComment on above:Performed By: #### UA #### [facility] ([id number]) [address], [address] [place], [place] [address]Kxhnqys [Mass/Vol]9.3 mg/dLNormal8.5-10.5PKettering Health Greene MemorialComment on above:Performed By: #### UA #### [facility] ([id number]) [address], [address] [place], [place] [address]Ibqjzgat [Moles/Vol]103 mmol/IHqzmyo53-356DqiYkhcljMethodist Hospital NortheastComment on above:Performed By: #### UA #### [facility] ([id number]) [address], [address] [place], [place] [address]LA9 [Moles/Vol]28 mmol/FHgatwq26-96KtwAgilskKettering Health Greene Memorial Comment on above:Performed By: #### UA #### [facility] ([id number]) [address], [address] [place], [place] [address]Xunbvkqhey [Mass/Vol]0.61 mg/dLNormal0.40-1.00[facility] HospitalComment on above:Result Comment: METHOD TRACEABLE TO IDMS STANDARD Performed By: #### UA #### [facility] ([id number]) [address], [address] [place], [place] [address]vBCG (CKD-EPI) NON-RACE DEPENDENT>90Normal>59ProMethodist Hospital NortheastComment on above:Result Comment: Reported eGFR is based on the CKD-EPI 2021 equation that does not use a race coefficient.Performed By: #### UA #### [facility] ([id number]) [address], [address] [place], [place] [address]Dlwoavj [Mass/Vol]85 mg/rVIykjof64-05AvhBmcyriOhioHealth Riverside Methodist Hospital Comment on above:Performed By: #### UA #### [facility] ([id number]) [address], [address] [place], [place] [address]Fzcspmbun [Moles/Vol]4.3 mmol/LNormal3.5-5.0[facility] HospitalComment on above:Performed By: #### UA #### [facility] ([id number]) [address], [address] [place], [place] [address]Soyyxao [Mass/Vol]6.7 g/dLNormal6.0-8.0[facility] HospitalComment on above:Performed By: #### UA #### [facility] ([id number]) [address] [place], [place] [address]Uksxth [Moles/Vol]138 mmol/YShwuwu337-935FmoPvwkvb [facility] HospitalComment on above:Performed By: #### UA #### [facility] ([id number]) [address] [place], [place] [address]Ugxh nitrogen [Mass/Vol]8 mg/dLNormal5-23ProMethodist Hospital NortheastComment on above:Performed By: #### UA #### [facility] ([id number]) [address] [facility] [place], [place] [address]Omylthiwlfzid metabolic panelon 72-11-5718Fyndcyu [Mass/Vol]4 g/dL3.2 - 5.3 g/dLProBaypointe Hospital Health SystemALP [Catalytic activity/Vol]32 U/LLow39 - 130 U/[facility] PartnersoMedica Health SystemALT No additional P-5'-P [Catalytic activity/Vol]8 U/L0 - 31 U/[facility] PartnersoMedica Health SystemAnion gap [Moles/Vol]7 mmol/L 5 - 15 mmol/[facility] PartnersoMedica Health SystemAST [Catalytic activity/Vol]12 U/L0 - 41 U/L [facility] Health SystemBilirubin [Mass/Vol]0.4 mg/dL0.3 - 1.2 mg/dLProMercy Health Tiffin Hospitalca Health SystemCalcium [Mass/Vol]9.3 mg/dL8.5 - 10.5 mg/dLProBaypointe Hospital Health System Chloride [Moles/Vol]103 mmol/L98 - 109 mmol/LProMedica Health SystemCO2 [Moles/Vol]28 mmol/L22 - 32 mmol/[facility] SystemCreatinine [Mass/Vol] 0.61 mg/dL0.40 - 1.00 mg/dLCincinnati Shriners HospitalComment on above:METHOD TRACEABLE TO IDKS STANDARDeGFR (CKD-EPI)non-race dependent- [facility] Medical CenterComment on above: Reported eGFR is based on the CKD-EPI 2020 equation that does not use a race coefficient. Glucose [Mass/Vol]85 mg/dL65 - 99 mg/dLCincinnati Shriners HospitalInterpretation and review of laboratory resultsAbnormalCincinnati Shriners HospitalPotassium [Moles/Vol]4.3 mmol/L3.5 - 5.0 mmol/LPrSaint Joseph Hospital Health SystemProtein [Mass/Vol] 6.7 g/dL6.0 - 8.0 g/dLAtrium Health Pineville Rehabilitation Hospitalodium [Moles/Vol]138 mmol/L134 - 146 mmol/LPrOhioHealth Mansfield Hospital SystemUrea nitrogen [Mass/Vol]8 mg/dL5 - 23 mg/dL [place]own HealthPROTEIN CREAT RATIOon 06-17-2024 RANDOM URINE OJWJABH758 mg/LHigh<120Ohio Valley HospitalComment on above: Performed By: #### UPCR #### [facility] ([id number]) [address], [address] [place], [place] [address]O/PRO/WET PAN MIXER RATIO CALC0.08Normal<0.2PPremier Health Miami Valley Hospital South Comment on above:Result Comment: Nephrotic Syndrome is associated with ratios >3.5Performed By: #### UPCR #### [facility] ([id number]) [address], [address] [place], [place] [address]MHDNE CREATININE,NAP835.75 mg/dLSCCI Hospital Lima Comment on above:Performed By: #### UPCR #### [facility] ([id number]) [address], [address] [place], [place] [address]ZG PREG LESS THAN 14 WKS WITH TRANSVAGINALon 67-14-3400HR PREG LESS THAN 14 WKS WITH TRANSVAGINALUS PREG LESS THAN 14 WKS WITH TRANSVAGINAL CLINICAL HISTORY: Dates and viability Comparison: None FINDINGS: * Single live IUP at 8 weeks 5 days. Nazlini-rump length 2.5 cm. Yolk sac visualized. Heart rate 175 beats minute. * The gestational sac is normal in morphology. Gestational sac fluid volume is normal for this veryearly gestational age. Placental morphology and location cannot be determined based on this early gestational age. * Maternal ovaries notable for a corpus luteal cyst left ovary measuring 1.8 x 1.5 x 1.6 cm. IMPRESSION: * Single live IUP 8 weeks 5 days. Finalized by Gabriele Person MD on 05/29/2024 7:29 [facility] CHLAMYDIA/GC PCR, FLon 31-87-4124AAAVAPVOI/GC PCR, FLCHLAMYDIA PCR, FL Negative (qualifier value) Chlamydia trachomatis not detected by nucleic acid amplification. This does not exclude the possibility of infection because results are dependent on adequate specimen collection. GONORRHOEAE PCR, FL Negative (qualifier value) Neisseria gonorrhoeae not detected by nucleic acid amplification. This does not exclude the possibility of infection because results are dependent on adequate specimen collection.[facility] Comment on above:Performed By: #### UA #### [facility] ([id number]) [address] [place] [address], [address] [place], [place] [address]Voylnczjyk 73-66-9531OfehtmlzJmoqndiyPbrIwjerj [facility] Comment on above:Result Comment: [facility] [address] [place] [address] Gynecologic Cytology Consultation Patient Name:DELICIA SHAW:1995 (Age: 29)Gender:FTaken:05/20/2024Reported:06/01/2024Physician(s):Sanjuanita Nguyen, DEEPIKA- AND DRYING SUPERVISOR COOKING CASING ([phone])Copy To: Rec. #:[id number]: #[id number] Final Cytologic Interpretation ThinPrep Pap Test (Cervical): Satisfactory for evaluation. A transformation zone component is present. SQUAMOUS EPITHELIAL CELL ABNORMALITY Atypical squamous cells of undetermined significance (ASC-US). Shift in vaginal dez suggestive of bacterial vaginosis. cjb/06/01/2024 Interpretation performed at [facility], [address] [place] [address], License number: [id number]. Electronically Signed Out By Amy Carter MD Date of Last Menstrual Period: (None Given) Other Clinical Conditions: Z01.419 Glass Finisher exam wo/abn findings Z34.91 Source of Specimen ThinPrep Pap Test (Cervical) Thin Prep Pap (ADJUNCT INSTRUCTOR OF WOMEN'S STUDIES) Fee Code(s): G0145, 45487 The Pap test is a screening test with an inherent, but low, probability of error. The Pap test is primarily effective for the diagnosis and prevention of squamous cell carcinoma. Regular screening iscritical for prevention. ThinPrep liquid-based slides, which meet the Addiction Social Worker criteria for automated screening, have been screened by the ThinPrep Imaging System (as of 11/11/06) along with an additional manual rescreening by a foundation director and, if indicated, by a pathologist.HIGH RISK HPV W/GENOon 59-94-4645GTF 31+33+35+39+45+51+52+56+58+59+66+68 DNA FILIPE+probe Ql (Cvx)HPV SPECIMEN TYPE ThinPrep HPV 16 Negative (qualifier value) HPV 18 Negative (qualifier value) OTHER HIGH RISK HPV Negative (qualifier value) HPV types 31,33,35,39,45,52,56,58,59,66 and 68 DNA were undetectable.NormalProMedica St Luke Medical CenterComment on above: Performed By: #### UA #### [facility] ([id number]) [address] [place] [address], [address] [place], [place] [address]JEZLRBEJD PANEL PCRon 46-07-4795ABGUDMBKU PANEL PCRBACT. VAGINOSIS DNA Detected (qualifier value) Qualitative results are reported based on detection and quantitation of targeted organism markers which include: Lactobacillus spp. (L. crispatus and L. jensenii), Gardnerella vaginalis, Atopobium vaginae, Bacterial Vaginosis Associated Bacteria-2 (BVAB-2) and Megasphaera-1 GIO SPECIES DNA Not detected (qualifier value) Gio species not detected include: C. albicans, C. tropicalis, C. parapsilosis or C. dubliniensis GIO KRUSEI DNA Not detected (qualifier value) No Gio krusei detected GIO GLABRATA DNA Not detected (qualifier value) No Gio glabrata detected TRICHOMONAS VAG DNA Not detected (qualifier value) No Trichomonas vaginalis detected NOTE BD MAX Vaginal Panel has not been evaluated for patients under 18 years old. Results for these patients should be reviewed and assessed in accordance with clinical presentation to determine patient diagnosis.NormalOhio Valley HospitalComment on above:Performed By: #### VPPCR #### [facility] ([id number]) [address] [place], [place] [address]DCEDL HEPATITIS PANELon 96-50-2888ZJNO HCV W/PCR REFLX Non-ReactiveKettering Health PrebleComment on above:Result Comment: NEW TEST METHOD NOTE If recent infection suspected, recommend repeat testing (>2 months). Qbvknq-ui-fiuvga ratio is <1.00.Performed By: #### CBC, 71500-8, 87969-0, AHP, 87474-8, 49944-8, 69509-6 #### [facility] ([id number]) [address], [address] [place], [place] [address]GLYCMWBVS A IGMNon-ReactiveKettering Health Preble Comment on above:Result Comment: NEW TEST METHODPerformed By: #### CBC, 62812-2, 80651-4, AHP, 62900-8, 33886-3, 78958-1 #### [facility] ([id number]) [address], [address] [place], [place] [address]MHISKEEDY B CORE IGMNon-ReactiveKettering Health PrebleComment on above:Result Comment: NEW TEST METHODPerformed By: #### CBC, 91653-9, 70153-6, AHP, 65201-9, 34683-8, 56330-1 #### [facility] ([id number]) [address] [place], [place] [address]TSOFZIZNN B SURF AGNon-ReactiveNormalNRCTProMethodist Hospital NortheastComment on above:Result Comment: NEW TEST METHODPerformed By: #### CBC, 52076-4, 35275-0, AHP, 06622-8, 70185-1, 96482-2 #### [facility] ([id number]) [address], [address] [place], [place] [address]RCXGWATL BLOOD COUNTon 12-79-9708Zpqjoagdsqe distribution width (RBC) [Ratio]14.1 %Mzawjr57.5-15.0Ohio[facility] Methodist HospitalComment on above: Performed By: #### CBC, 27984-9, 61701-7, AHP, 35850-9, 17436-9, 93211-4 #### [facility] ([id number]) [address], [address] [place], [place] [address]Xmacyvdbcn (Bld) [Volume fraction]40.3 %Lkxggh91-79DkyAyfezqMethodist Hospital NortheastComment on above:Performed By: #### CBC, 73276-3, 64653-4, AHP, 94710-0, 67350-0, 51684-3 #### [facility] ([id number]) [address], [address] [place], [place] [address]Nxtcriyrze (Bld) [Mass/Vol]13.7 g/hRBssprf89.7-15.5PKettering Health Greene MemorialComment on above:Performed By: #### CBC, 90855-9, 89459-1, AHP, 45577-5, 15018-7, 85674-8 #### [facility] ([id number]) [address], [address] [place], [place] [address]DQH (RBC) [Entitic mass]29.4 lqYygkqq49-67XpsTrtujuMethodist Hospital NortheastComment on above:Performed By: #### CBC, 12013-0, 39131-4, AHP, 50451-6, 46937-5, 09528-0 #### [facility] ([id number]) [address], [address] [place], [place] [address]GLER (RBC) [Mass/Vol]33.9 g/jQJowabp78-54AurBhivlmOhioHealth Riverside Methodist HospitalComment on above:Performed By: #### CBC, 62460-2, 07545-3, AHP, 34098-6, 46942-4, 18745-6 #### [facility] ([id number]) [address], [address] [place], [place] [address]CFR (RBC) [Entitic vol]87 mWIpttbv12-475HyzWjzuzh [facility] HospitalComment on above:Performed By: #### CBC, 43249-9, 12498-0, AHP, 74236-5, 99993-0, 59875-9 #### [facility] ([id number]) [address], [address] [place], [place] [address]Oyibkehp mean volume (Bld) [Entitic vol]10.2 fLNormal7-12 [facility] HospitalComment on above:Performed By: #### CBC, 77238-0, 45887-2, AHP, 08805-1, 10254-4, 05541-9 #### [facility] ([id number]) [address], [address] [place], [place] [address]Wvpctpouz (Bld) [#/Vol]256 10*3/tBGqmvca692-270NxcYwffei [facility] HospitalComment on above:Performed By: #### CBC, 82970-8, 93953-7, AHP, 80563- 5, 69799-6, 31959-5 #### [facility] ([id number]) [address], [address] [place], [place] [address]NLZ COUNT4.64 X10E12/LNormal3.80-5.20[facility] Comment on above:Performed By: #### CBC, 50429-1, 83866-0, AHP, 95919-1, 86488- 4, 40681-0 #### [facility] ([id number]) [address], [address] [place], [place] [address]UST (Bld) [#/Vol]7.1 10*3/uLNormal4.0-11.0ProMethodist Hospital NortheastComment on above:Performed By: #### CBC, 87840-7, 62345-7, AHP, 31346-4, 06921-4, 69840-5 #### [facility] ([id number]) [address] [place], [place] [address]UZTS SCREEN, URINEon 52-59-7709NSGIAVBPMKC/METHAMPNegativeNormal NEGOhioHealth Riverside Methodist HospitalComment on above:Result Comment: AMPH/METH screening cut off = 1000 ng/mLPerformed By: #### DSU #### [facility] ([id number]) [address] [place], [place] [address]HQPYTHSQBDAVHbyyktocFcdfojFMSQjpNuykwz [facility] HospitalComment on above:Result Comment: Barbiturates screening cut off value = 200 ng/mL Performed By: #### DSU #### [facility] ([id number]) [address], [address] [place], [place] [address]MLJZHDZHSJBQUZTGpvuvyzyAxeeyjGKLOleDpxuti [facility] Comment on above:Result Comment: Benzodiazepines screening cut off value = 200 ng/mLPerformed By: #### DSU #### [facility] ([id number]) [address], [address] [place], [place] [address]ZMFOBBHTWLHDJmrbajzjMvjifvBSDWsvMiirlz [facility] HospitalComment on above:Result Comment: Cannabinoids/THC screening cut off value = 50 ng/mL Performed By: #### DSU #### [facility] ([id number]) [address], [address] [place], [place] [address]KVHGGMO METABOLITENegativeNormalNEGMetroHealth [facility] Comment on above:Result Comment: Cocaine screening cut off value = 300 ng/mL Performed By: #### DSU #### [facility] ([id number]) [address], [address] [place], [place] [address]CJYDQNGRjyhulzzPijnfuLKHGnvAofhle [facility]Com[facility] on above:Result Comment: Ecstasy screening cut off value = 500 ng/mL This report is intended for use in clinical monitoring or management of patients.Performed By: #### DSU #### [facility] ([id number]) [address] [facility] [place], [place] [address]HOXCEPUFNWpemiitbFkebflXGAGmgZhmcix [facility] HospitalComasc[facility] on above:Result Comment: Methadone screening cut off value = 300 ng/mL.Performed By: #### DSU #### [facility] ([id number]) [address] [facility] [place], [place] [address]BIDQJZOUtdbjpifIlmhhhWRYQnvZjnouh [facility]Com[facility] on above:Result Comment: Opiates screening cut off value = 300 ng/mL NOTE: This test is used for the detection of codeine, hydrocodone (>1000 ng/mL), morphine and hydromorphone (>900 ng/mL) in urine.Performed By: #### DSU #### [facility] ([id number]) [address] [facility] [place], [place] [address]SPXKXDVDWWkxvgowsOupgfmMBKFjpXmxjpe [facility]Com[facility] on above:Result Comment: Oxycodone screening cut off value = 300 ng/mL NOTE: This test is used for the detection of oxycodone and oxymorphone in urine.Performed By: #### DSU #### [facility] ([id number]) [address], [address] [place], [place] [address]FRQZUNCRRTEPXKusnihloWkiantDLCOlyQzzwqi [facility]Com[facility] on above:Result Comment: Phencyclidine screening cut off value = 25 ng/mL Performed By: #### DSU #### [facility] ([id number]) [address] [facility], [address] [place], [place] [address]QXG.beta subunit IA 3rd IS Qnon 64-73-[place] [address] m[IU]/mLNormalCleveland Clinic Union Hospital on above:Result Comment: NEW REFERENCE RANGE WEEKS (SINCE LMP) MIU/mL 3 WEEKS 5 - 50 4 WEEKS 5 - 426 5 WEEKS 18 - 7,340 6 WEEKS 1,080 - 56,500 7-8 WEEKS 7,650 - 229,000 9-12 WEEKS 25,700 - 288,000 13-16 WEEKS 13,300 - 254,000 17-24 WEEKS 4,060 - 165,400 25-40 WEEKS 3,640 - 117,000 MALES AND NON- FEMALES - <5 MIU/mL This test has been FDA approved for use in only. Elevated levels are not necessarily diagnostic for trophoblastic or nontrophoblastic neoplasms. Performed By: #### DEMETRIO, 29845-1, 96820-8, ASHLEY, 92390-4, 34397-4, 57214-5 #### [facility] ([id number]) [address] [place], [place] [address]RNV 1+2 Ab+HIV1 p24 Ag IA Qlon 98-23-6480JNI 1 and 2 Ab/Ag ScreenNon-ReactiveNormalNRCTCleveland Clinic Union Hospital on above:Result Comment: NEW TEST METHOD NOTE This information has been disclosed to you from confidential records protected from disclosure by state law. You shall make no further disclosure of this information without the specific, written and informed release of the individual to whom it pertains, or as otherwise permitted by state law. A general authorization for the release of medical or other information is not sufficient for the purpose of the release of HIV test results or diagnoses.Performed By: #### DEMETRIO, 12306-9, 52689-0, ASHLEY, 31592-3, 15181-8, 27467-8 #### [facility] ([id number]) [address], [address] [place], [place] [address]Gtkhqei virus Ab Ql (S)on 15-25-7986DYODXCI IMMUNE IgG1.0 AI NormalProMethodist Hospital NortheastComment on above:Result Comment: Interpretation-------- <0.8 NEGATIVE-considered Not Immune 0.8-0.9 EQUIVOCAL-consider retesting with new specimen >0.9 POSITIVE-considered Immune Performed By: #### DEMETRIO, 70073-6, 61425-6, Ayo, 38293-7, 34396-7, 39019-4 #### [facility] ([id number]) [address] [place], [place] [address]G. pallidum IgG+IgM IA Ql (S)on 81-39-2062Axeygfbj Total<0.2 Normal0.0-0.8[facility] HospitalComment on above:Result Comment: NON REACTIVE No serologic evidence of infection to Treponema pallidum (syphilis). Repeat testing may be considered in patients with suspected acute or primary syphilis in 2 to 4 weeks.Performed By: #### CBC, 45447-8, 90611-3, AHP, 94508-4, 91151-2, 95677-6 #### [facility] ([id number]) [address] [place], [place] [address]CVTRQZHWWWxu 67-58-4971Lndqrlhpy Ql (U)NegativeNormalNEG ProMValleyCare Medical CenterComment on above:Performed By: #### UA #### [facility] ([id number]) [address], [address] [place], [place] [address]PQDIC/HGBNegativeNormalNEGOhioHealth Riverside Methodist HospitalComment on above:Performed By: #### UA #### [facility] ([id number]) [address], [address] [place], [place] [address]Dhcvi (U)YELLOWNormalYELLOWProMethodist Hospital NortheastComment on above:Performed By: #### UA #### [facility] ([id number]) [address], [address] [place], [place] [address]Hvlcbwy Ql (U)NegativeNormalNEGOhioHealth Riverside Methodist HospitalComascension st. john hospital on above:Performed By: #### UA #### [facility] ([id number]) [address], [address] [place], [place] [address]Gbjwvna Ql (U)NegativeNormalNEGOhioHealth Riverside Methodist HospitalComascension st. j[facility] hospital on above:Performed By: #### UA #### [facility] ([id number]) [address] [place], [place] [address]Mimgoxkoa esterase Test strip Ql (U)NegativeNormalNEGOhioHealth Riverside Methodist HospitalComascension st. j[facility] hospital on above:Performed By: #### UA #### [facility] ([id number]) [address], [address] [place], [place] [address]Czbxsml Ql (U)NegativeNormalNEGOhioHealth Riverside Methodist HospitalComascension st[facility] j[facility] hospital on above:Performed By: #### UA #### [facility] ([id number]) [address], [address] [place], [place] [address]lM (U)6.5 [pH]Normal5.0-8.5Pro[facility] CenterComasc[facility] on above:Performed By: #### UA #### [facility] ([id number]) [address], [address] [place], [place] [address]Zjplbyk Ql (U)NegativeNormalNEGOhioHealth Riverside Methodist HospitalComascension st. j[facility] hospital on above:Performed By: #### UA #### [facility] ([id number]) [address], [address] [place], [place] [address]Acnnyqkj gravity (U) [Rel density]1.734Pdajvu8.003-1.035 ProMedicKaiser Foundation HospitalComment on above:Performed By: #### UA #### [facility] ([id number]) [address], [address] [place], [place] [address]UWFYATHGWRZYQVTwygmiYILHDWjrMkkcnh [facility] HospitalComment on above:Performed By: #### UA #### [facility] ([id number]) [address], [address] [place], [place] [address]Trwszvydpnop (U) [Mass/Vol]mg/dLNormal<1.1PKettering Health Greene MemorialComment on above:Performed By: #### UA #### [facility] ([id number]) [address] [place], [place] [address]WHYAT CULTUREon 32-99-4955Cipcplcu identified Cx Nom (U)CULTURE RESULTS <10,000 ORGANISMS/ML NORMAL URO GENITAL FLORAEast [facility] Comment on above:Performed By: #### UA #### [facility] ([id number]) [address], [address] [place], [place] [address]FV PREG LESS THAN 14 WKS WITH TRANSVAGINALon 25-93-0875AE PREG LESS THAN 14 WKS WITH TRANSVAGINALUS PREG LESS THAN 14 WKS WITH TRANSVAGINAL CLINICAL HISTORY: Dates viability Comparison: None FINDINGS: * Single live IUP at 6 weeks 5 days. Nazlini-rump length 7.8 mm. Yolk sac visualized. Heart rate 122 beats minute. * The gestational sac is normal in morphology. Position of the sac somewhat superiorly located in the fundus. Gestational sac fluid volume is normal for this very early gestational age. Placental morphology and location cannot be determined based on this early gestational age. * Maternal ovaries normal corpus luteal cyst in the left measuring 1.2 cm. IMPRESSION: * Single live IUP at 6 weeks 5 days. Follow-up ultrasound recommended in 3-4 weeks to reassess gestational sac location. Finalized by Gabriele Person MD on 05/11/2024 1:41 PMNormalOhioHealth Riverside Methodist Hospital VZV IgG IA Ql (S)on 53-48-0624XBNTHWCLI IgG1.4 AIHigh<0.9[facility] Methodist HospitalComment on above:Result Comment: Interpretation-------- <0.9 Negative 0.9 - 1.0 Equivocal >1.0 Positive Performed By: #### CBC, 62237-3, 51689-4, AHP, 44307-1, 27077-0, 63057-4 #### [facility] ([id number]) [address] [place], [place] [address]Wez 46-06-8792NQvypbghm: [id number] Received: 12/16/23 Status: [place] Num: [id number] Spec Type: Surgical Subm Dr: Kj Mcclelland DO Tissues: A Appendix - Other than Incidental (APPENDIX) Procedures: HE/2, Gross/Micro L3 Age/ Patient Sex Location Account Attending Physician Delicia Shaw 28/F [place] [id number] Kj Mcclelland DO SPEC NUM: [id number] RECD: 12/16/23 STATUS: [place] NUM: [id number] TATYANA: 12/12/[address]: Kj Mcclelland DO ENTERED: 12/16/[address] [facility] DR: Alvin Mishra SPEC TYPE: Surgical DEPT: RENEA CHRISTENSEN ENTERED BY: [id number] RECV BY: [id number] ORDERED: HE/2, Gross/Micro L3 ORDERED: HE/2, Gross/Micro L3 Pathological Diagnosis Appendix, appendectomy: - Appendix with no significant histopathology. - No evidence of acute appendicitis identified. Clinical Information Abdominal pain Gross Description The specimen is received in formalin with the patient's name and appendix and consists of a adkins-pink vermiform unremarkable appendix measuring 4.5 cm in length with a diameter of 0.6 cm. The proximal margin is inked black. The serosal surface is adkins-pink with attached mesoappendix measuring 3.0 x 2.0 x 0.6 cm. Cut sections reveals a lumen measuring 0.2 cm in diameter. Entire appendix is submitted as follows: A1: proximal margin and cross-sections A2: distal tip bisected Microscopic Description Microscopic examination is performed. Specimen: [id number] Received: 12/16/23 Status: [place] Num: [id number] Spec Type: Surgical Subm Dr: Kj Mcclelland, Tissues: A Appendix - Other than Incidental (APPENDIX) Procedures: HE/2, Gross/Micro L3 Patient: ShawDelicia [id number] (Continued) Specimen: [id number] Received: 12/16/23 (Continued) Signed (signature on file) Junior Norton MD 12/18/23 1458 Specimen: [id number] Received: 12/16/23 Status: [place] Num: [id number] Spec Type: Surgical Subm Dr: Kj Mcclelland DO Tissues: A Appendix - Other than Incidental (APPENDIX) Procedures: HE/2, Gross/Micro L3 Patient: Delicia Shaw [id number] (Continued) Specimen: [id number] Received: 12/16/23 (Continued) CPT Codes 86320 Specimen: [id number] Received: 12/16/23 Status: [place] Num: [id number] Spec Type: Surgical Subm Dr: Kj Mcclelland,DO Tissues: A Appendix - Other than Incidental (APPENDIX) Procedures: HE/2, Gross/Micro L3 Patient: Delicia Shaw Darell [id number] (Continued) Signed (signature on file) Junior Norton MD 12/18/23 1458Normal [facility] Physician GroupSurgical PathologyOrdered By: Heather Mcneil on 10-73-5150QqwAsgqrrMercy Health St. Elizabeth Boardman HospitalHCG, Quanton 72-14-1431MAB, Quant<1Normal<5 [facility] HospitalComment on above:Result Comment: Non-preg premeno <=5 Postmeno <=8 Male <=3 If HCG results do not concur with clinical observations, additional testing to confirm results is recommended. Elevated results not associated with may be found in patients with other diseases such as tumors of the germ cells (testis, ovaries, etc.), bladder, pancreas, stomach, lungs, and liver.Performed By: #### [facility] #### [facility] ilustrum [address] [place] [id number] Dog Show Judge: Dragan Cabello MDHCG, Quantitative, Pregnancyon 30-65-0557yFX Quant<1<5 IU/LMercy [employer]ycl[employer] Work Phone: comment on above: Non-preg premeno <=5 Postmeno <=8 Male <=3 If HCG results do not concur with clinical observations, additional testing to confirm results is recommended. Elevated results not associated with may be found in patients with other diseases such as tumors of the germ cells (testis, ovaries, etc.), bladder, pancreas, stomach, lungs, and liver. Vital Signs Date TimeVital SignValuePerforming QyiatsinyKuuvodxt08-99-5802 15:55-0500Body vfydkv879.1 cmTmercy Hahn DO Work Phone: [facility]11-06-2025 15:55-0500Body mass index (BMI) [Ratio]23.96 kg/k2GuzbvKarmen Hahn [employer] Work Phone: [facility]11-06-2025 15:55-0500Body vxbbplijhfw30.2 [degF]Karmen Hahn DO Work Phone: [facility]11-06-2025 15:55-0500Body xqkixf55.32 kgKarmen Hahn [employer] Work Phone: [facility]11-06-2025 15:55-0500Diastolic blood iyjefdik03 mm[Hg]Karmen Hahn DO Work Phone: [facility]11-06-2025 15:55-0500Systolic blood gefedqyz805 mm[Hg]Karmen Hahn DO Work Phone: [facility]11-02-2025 09:55-0500Body cjycmmczbae78.6 [degF]Delicai Egan APRN-CNM Work Phone: [facility] HospitalOpen [facility] [employer] Aoyuvs70-09-6251 09:55-0500Diastolic blood ddpctepp96 mm[Hg]Delicia Egan APRN-CNRebecca Work Phone: [address] [place], [place] [address]11-02-2025 09:55-0500Heart rate 99 /Chiqui Egan BASKET MACHINE OPERATOR-CNM Work Phone: [facility]11-02-2025 09:55-0500 Respiratory rate16 /Chiqui Egan BASKET MACHINE OPERATOR-CNM Work Phone: [facility]11-02-2025 09:55-0500Systolic blood lydelmlm920 mm[Hg]Delicia Egan BASKET MACHINE OPERATOR-CNM Work Phone: [facility]10-24-2025 11:02-0400Body mass index (BMI) [Ratio]26.29 kg/m2Lisa Krotzer BASKET MACHINE OPERATOR-AND DRYING SUPERVISOR [employer] Work Phone: [facility]10-24-2025 11:02-0400Body wfgzap43.67 kgLisa Krotzer BASKET MACHINE OPERATOR-AND DRYING SUPERVISOR [employer] Work Phone: [phone]-[facility]10-24-2025 11:02-0400Diastolic blood jmqeysip05 mm[Hg]Sanjuanita Krotzer BASKET MACHINE OPERATOR-AND DRYING SUPERVISOR [employer] Work Phone: 1(627)894-[address] [place], [place] [address]10-24-2025 11:02-0400Systolic blood defjsatp777 mm[Hg]Sanjuanita Krotzer BASKET MACHINE OPERATOR-AND DRYING SUPERVISOR [employer] Work Phone: [facility]10-17-2025 11:14-0400Body mass index (BMI) [Ratio]26.06 kg/m2Lisa Krotzer BASKET MACHINE OPERATOR-AND DRYING SUPERVISOR [employer] Work Phone: [phone])255-[facility]10-17-2025 11:14-0400Body kaikkb97.03 kgLisa Krotzer BASKET MACHINE OPERATOR-AND DRYING SUPERVISOR [employer] Work Phone: [phone]-[facility]10-17-2025 11:14-0400Diastolic blood tkgsllub33 mm[Hg]Sanjuanita Krotzer BASKET MACHINE OPERATOR-AND DRYING SUPERVISOR [employer] Work Phone: [facility]10-17-2025 11:14-0400Systolic blood lixhgbwr972 mm[Hg]Sanjuanita Krotzer BASKET MACHINE OPERATOR-AND DRYING SUPERVISOR [employer] Work Phone: [facility]10-09-2025 14:18-0400Body mass index (BMI) [Ratio]25.13 kg/m2Lisa Mandootzer BASKET MACHINE OPERATOR-AND DRYING SUPERVISOR [employer] Work Phone: [facility]10-09-2025 14:18-0400Body .49 kgLisa Mandootzer BASKET MACHINE OPERATOR-AND DRYING SUPERVISOR [employer] Work Phone: [facility]10-09-2025 14:18-0400Diastolic blood idfxlzqb25 mm[Hg]Sanjuanita Krotzer BASKET MACHINE OPERATOR-AND DRYING SUPERVISOR [employer] Work Phone: [facility]10-09-2025 14:18-0400Systolic blood mm[Hg]Sanjuanita Krotzer BASKET MACHINE OPERATOR-AND DRYING SUPERVISOR [employer] Work Phone: [facility]09-25-2025 14:37-0400Body mass index (BMI) [Ratio]25.26 kg/m2POhio [facility]09-25-2025 14:37-0400Body iiwdfw02.86 kgPOhio State Health System09-25-2025 14:37-0400Diastolic blood yhhocfaa56 mm[Hg][facility] 11-19-2024 14:37-0400Systolic blood crfgxjfa095 mm[Hg][facility]09-15-2025 08:53-0400Body eaxaqy103.1 cmEmmett Wilkinson MD Work Phone: [phone]09-15-2025 08:53-0400Body mass index (BMI) [Ratio]24.79 kg/r6JftonEmmett Wilkinson MD Work Phone: [phone])267-[address] [place], [place] 9782509-15-2025 08:53-0400Body .59 kgEmmett Wilkinson MD Work Phone: [facility]09-15-2025 08:53-0400Diastolic blood weejrche41 mm[Hg]Emmett Wilkinson MD Work Phone: 1(498)098-[address] [place], [place] 9782509-15-2025 08:53-0400Heart rate 98 /minEmemtt Wilkinson MD Work Phone: [facility]09-15-2025 08:53-9590UsS8% (BldA) [Mass fraction]97 %Emmett Wilkinson MD Work Phone: [facility]09-15-2025 08:53-0400Systolic blood mm[Hg]Emmett Wilkinson MD Work Phone: [facility]09-12-2025 10:51-0400Body mass index (BMI) [Ratio]23.96 kg/m2Lisa Krotzer BASKET MACHINE OPERATOR-AND DRYING SUPERVISOR [employer] Work Phone: [facility]09-12-2025 10:51-0400Body .31 kgLisa Krotzer BASKET MACHINE OPERATOR-AND DRYING SUPERVISOR [employer] Work Phone: [facility]09-12-2025 10:51-0400Diastolic blood mm[Hg]Sanjuanita Krotzer BASKET MACHINE OPERATOR-AND DRYING SUPERVISOR [employer] Work Phone: [facility]09-12-2025 10:51-0400Systolic blood mm[Hg]Sanjuanita Krotzer BASKET MACHINE OPERATOR-AND DRYING SUPERVISOR [employer] Work Phone: [facility]09-02-2025 14:13-0400Diastolic blood msbbozci92 mm[Hg]Pfo [address] [place], [place] 5004109-02-2025 14:13-0400Heart rate83 /minPfo [address] [place], [place] 5004109-02-2025 14:13-0400Respiratory rate16 /minPfo [address] [place], [place] 5004109-02-2025 14:13-0400Systolic blood quelumzq727 mm[Hg]Pfo [address] [place], [place] 5004109-02-2025 13:37-0400Body wyggre675.6 cmPfo 3 [facility]09-02-2025 13:37-0400Body mass index (BMI) [Ratio]23.71 kg/m2Pfo [address] [place], [place] 5004109-02-2025 13:37-0400Body wyamtthuvlc30.1 [degF]Pfo [address] [place], [place] 5004109-02-2025 13:37-0400Body utftjo72.59 kgPfo 3 [facility]09-02-2025 13:37-8885CjC7% (BldA) [Mass fraction]99 %Pfo [address] [place], [place] 5004108-29-2025 10:00-0400Body mass index (BMI) [Ratio]23.58 kg/m2Lisa Mandootzer BASKET MACHINE OPERATOR-AND DRYING SUPERVISOR [employer] Work Phone: [facility]08-29-2025 10:00-0400Body hnyvwu12.22 kgLisa Mandootzer BASKET MACHINE OPERATOR-AND DRYING SUPERVISOR [employer] Work Phone: [facility]08-29-2025 10:00-0400Diastolic blood mm[Hg]Sanjuanita Mandootzer BASKET MACHINE OPERATOR-AND DRYING SUPERVISOR [employer] Work Phone: [facility]08-29-2025 10:00-0400Systolic blood sapttavw948 mm[Hg]Sanjuanita Krotzer BASKET MACHINE OPERATOR-AND DRYING SUPERVISOR [employer] Work Phone: [facility]08-22-2025 14:36-0400Diastolic blood grziplsu36 mm[Hg]Pfo [address] [place], [place] 5004108-22-2025 14:36-0400Heart wdau797 /minP[address]08-22-2025 14:36-0400Systolic blood kynspwae260 mm[Hg]Pfo [address] [place], [place] 5004108-22-2025 13:51-0400Body height 167.[address] [place], [place] 5004108-22-2025 13:51-0400Body mass index (BMI) [Ratio]23.32 kg/m[address]08-22-2025 13:51-0400Body .7 [degF]Pfo [address] [place], [place] 5004108-22-2025 13:51-0400Body vyusto80.[address] [place], [place] 5004108-22-2025 13:51-0400Respiratory rate17 /minPfo [address] [place], [place] 5004108-22-2025 13:51-2784LeC1% (BldA) [Mass fraction]98 %Pfo roMedica Health Yerqmk27-67-8753 14:32-0400Diastolic blood cjigiybh19 mm[Hg]o [address] [place], [place] 5004108-19-2025 14:32-0400Heart rate90 /minPfo [address] [place], [place] 5004108-19-2025 14:32-0400Respiratory rate16 /minPfo [address] [place], [place] 5004108-19-2025 14:32-4145OqG3% (BldA) [Mass fraction]100 % [address]08-19-2025 14:32-0400Systolic blood saarjbik66 mm[Hg][address]08-19-2025 13:33-0400Body hytaro310.[address] [place], [place] 5637408-19-2025 13:33-0400Body mass index (BMI) [Ratio]23.35 kg/m2Pfo [address] [place], [place] 5004108-19-2025 13:33-0400Body qdhquazurjj17.29 [degF][address]08-19-2025 13:33-0400Body zqfffo83.[address] [place], [place] [id number] 09:46-0400Body mass index (BMI) [Ratio]23.18 kg/h2Ihemzmojaradha Johnston BASKET MACHINE OPERATOR-AND [employer] Work Phone: [facility]08-15-2025 09:46-0400Body mwppus68.14 kgSteplali Johnston BASKET MACHINE OPERATOR-AND [employer]YING SUPER[employer] Work Phone: [facility]08-15-2025 09:46-0400Diastolic blood pvhphpuj95 mm[Hg]Delicia Johnston BASKET MACHINE OPERATOR-AND [employer]YING SUPER[employer] Work Phone: [facility]08-15-2025 09:46-0400Systolic blood xumxykxc932 mm[Hg]Delicia Johnston BASKET MACHINE OPERATOR-AND [employer]YING SUPER[employer] Work Phone: [facility]08-05-2025 10:26-0400Body egtgow835.6 cmAlice Michel MD Work Phone: [facility]08-05-2025 10:26-0400Body mass index (BMI) [Ratio]23.24 kg/j6YedikeiAlice Michel MD Work Phone: [phone]08-05-2025 10:26-0400Body isjvbw21.32 kgAlice Michel MD Work Phone: [facility] [facility]08-[facility]25 10:26-0400Diastolic blood fqnupobd64 mm[Hg]Alice Michel MD Work Phone: [phone]08-05-2025 10:26-0400Heart rate 85 /minAlice Michel MD Work Phone: [phone]08-05-2025 10:26-0400Systolic blood xugnozyq333 mm[Hg]Alice Michel MD Work Phone: [phone]07-25-2025 11:38-0400Body mass index (BMI) [Ratio]23.26 kg/[facility]2P[facility]07-25-2025 11:38-0400Body hibugq50.41 [facility]POhio [facility]07-25-2025 11:38-0400Diastolic blood nkjinmzi03 mm[Hg][facility] 09-18-2024 11:38-0400Systolic blood pjmlwavl708 mm[Hg][facility]07-15-2025 09:43-0400Body sijocz676.1 Galileo Putnam MD Work Phone: [facility]07-15-2025 09:43-0400Body mass index (BMI) [Ratio]23.13 kg/m2Lizz Putnam MD Work Phone: [facility]07-15-2025 09:43-0400Body dacsdz56.05 kgLizz Putnam MD Work Phone: [facility]07-15-2025 09:43-0400Diastolic blood azeibdsg23 mm[Hg]Lizz Putnam MD Work Phone: [facility]07-15-2025 09:43-0400Heart rate 86 /Charles Putnam MD Work Phone: [facility]07-15-2025 09:43-0400Systolic blood ytxbeqmz055 mm[Hg]Lizz Putnam MD Work Phone: [facility]06-26-2025 14:33-0400Body mass index (BMI) [Ratio]22.3 kg/m2Alessandro Lawler MD Work Phone: 1([phone])488-[address] [place], [place] 3421606-26-2025 14:33-0400Body oxrpyy22.78 kgAlessandro Lawler MD Work Phone: [phone] [place], [place] 3421606-26-2025 14:33-0400Diastolic blood muqokqii38 mm[Hg]Alessandro Lawler MD Work Phone: 1(228)[phone] [place], [place] 3421606-26-2025 14:33-0400Systolic blood xlbnavxf42 mm[Hg]Alessandro Lawler MD Work Phone: 1([phone])918-[address] [place], [place] 3421606-25-2025 13:50-0400Body mass index (BMI) [Ratio]22.47 kg/m2Lisa Mandootzer BASKET MACHINE OPERATOR-AND DRYING SUPERVISOR COOKING CASING Work Phone: [facility]06-25-2025 13:50-0400Body eqzxlh56.24 kgLisa Krotzer BASKET MACHINE OPERATOR-AND DRYING SUPERVISOR COOKING CASING Work Phone: [facility]06-25-2025 13:50-0400Diastolic blood mguhzvbg92 mm[Hg]Sanjuanita Krotzer BASKET MACHINE OPERATOR-AND DRYING SUPERVISOR COOKING CASING Work Phone: [facility]06-25-2025 13:50-0400Systolic blood ogpkalln963 mm[Hg]Sanjuanita Krotzer BASKET MACHINE OPERATOR-AND DRYING SUPERVISOR COOKING CASING Work Phone: [facility]06-04-2025 14:04-0400Body hlvohg642.1 [facility]06-04-2025 14:04-0400Body mass index (BMI) [Ratio]22.43 [facility]2025 14:04-0400Body alqqog46.15 [facility]06-04-2025 14:04-0400Diastolic blood dzapdlok18 mm[Hg][facility] 07-29-2024 14:04-0400Systolic blood amwhrhrv15 mm[Hg][facility]05-21-2025 12:57-0400Body mass index (BMI) [Ratio]22.37 kg/m2P[facility]05-21-2025 12:57-0400Body mgvniv44.96 [facility]05-21-2025 12:57-0400Diastolic blood ywbsvnpb32 mm[Hg][facility]05-21-2025 12:57-0400Systolic blood wbtdxmwo977 mm[Hg][facility]04-23-2025 12:58-0400Body mass index (BMI) [Ratio]21.63 kg/m2[facility]04-23-2025 12:58-0400Body .97 kgResearch [facility]04-23-2025 12:58-0400Diastolic blood udkiulql10 mm[Hg][facility] 06-17-2024 12:58-0400Systolic blood tbyiklgo325 mm[Hg][facility]03-26-2025 13:51-0400Body mass index (BMI) [Ratio]20.97 kg/m2[facility]03-26-2025 13:51-0400Body whdjna24.15 kgResearch [facility]03-26-2025 13:51-0400Diastolic blood vstcyggn10 mm[Hg][facility]03-26-2025 13:51-0400Systolic blood mm[Hg][facility]10-30-2024 09:15-0400Body mass index (BMI) [Ratio]21 kg/t4DwqracpSofía Boucher BASKET MACHINE OPERATOR-AND DRYING SUPERVISOR COOKING CASING Work Phone: [facility]10-30-2024 09:15-0400Body budmnj81.24 kgSofía Boucher BASKET MACHINE OPERATOR-AND DRYING SUPERVISOR COOKING CASING Work Phone: [facility]10-17-2024 13:24-0400Body .4 cmRamiro Huntley ORGANIC LAB WORKER Work Phone: [facility] [phone] 13:24-0400Body mass index (BMI) [Ratio]20.48 kg/m2Daviderebecca Олег ORGANIC LAB WORKER Work Phone: [facility] NetworkZqqhdcjcsx49-91-5921 13:24-0400Body temperature 97.3 [degF]Ramiro Huntley ORGANIC LAB WORKER Work Phone: [facility] NetworkGowiezgmew44-54-1376 13:24-0400Body rrnevl02.7 kg Ramiro Huntley ORGANIC LAB WORKER Work Phone: [facility] NetworkZsguwkelld19-52-8491 13:24-0400Diastolic blood izfzaytx07 mm[Hg]Ramiro Huntley ORGANIC LAB WORKER Work Phone: [facility] [phone] 13:24-0400Heart rate62 /min Ramiro Huntley ORGANIC LAB WORKER Work Phone: [facility] NetworkGhvdldplys43-58-3569 13:24-8232AuL0% (BldA) [Mass fraction]100 %Ramiro Huntley ORGANIC LAB WORKER Work Phone: [facility] [phone] 13:24-0400Systolic blood fbzrjule798 mm[Hg]Ramiro Huntley ORGANIC LAB WORKER Work Phone: [facility] Encounters Encounter DateEncounter TypeCare ProviderFacilityStart: 12-31-2024 End: 62-99-2267Fstirp follow up visit related to original Nela Hahn DO Work Phone: [facility] Physicians Obstetrics/GynecologyComment on above: delivery delivered (Primary Dx); 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; Pain at surgical incision; Excessive incisional edema, initial encounterStart: 12-31-2024 End: 11-24-3203Ykvsiidch encounterShani MillanGalion Community Hospitalca Call CenterComment on above:ordersStart: 12-23-2024 End: 86-03-8839Phbrxwzzex and management of Jaylin Sommer BASKET MACHINE OPERATOR-CNM Work Phone: [facility] LDRPComment on above: delivery delivered (Primary Dx); 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; Restless leg syndrome in ; Sleep disturbance; 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; care following deliveryStart: 12-21-2024 End: 67-53-8615atodnaslexSAAJMaury Regional Medical Center Ambulatory PPGStart: 12-20-2024 End: 19-18-6388Otkpqzjvn encounterKati SloanGalion Community Hospitalca Call CenterComment on above:Back Pain (Contract: 129///)Start: 12-18-2024 End: 45-47-1973xmgsbhbfqiMFDDMercy Hospital Booneville HospitalStart: 12-18-2024 End: 11-70-2823Pzfzqbfulc care visitSanjuanita Nguyen BASKET MACHINE OPERATOR-AND DRYING SUPERVISOR COOKING CASING Work Phone: [facility] Physicians Obstetrics/GynecologyComment on above:GA: 84d0xOfxtv: 12-18-2024 End: 21-69-8302ttvbfxyghyPNRLMaury Regional Medical Center Ambulatory PPGStart: 12-11-2024 End: 42-05-6142Vmdlgjlfwn care visitLisa Rebecca Nguyen BASKET MACHINE OPERATOR-AND DRYING SUPERVISOR COOKING CASING Work Phone: [facility] Physicians Obstetrics/GynecologyComment on above:GA: 65l6fKyarg: 12-11-2024 End: 84-58-0394yljvjjmwkuVKOXMaury Regional Medical Center Ambulatory PPGStart: 12-07-2024 End: 42-04-9508Mzkvle-up encounterAna Witt Physicians CardiologyComment on above:Holter monitor 3-5 daysStart: 12-03-2024 End: 94-84-5795Nwsuyrvknt care visitLisa Rebecca Nguyen BASKET MACHINE OPERATOR-AND DRYING SUPERVISOR COOKING CASING Work Phone: [facility] Obstetrics/GynecologyComment on above:GA: 55d1fSuatt: 12-03-2024 End: 09-12-5098jelgrpguqqOSFMFlowers Hospital Ambulatory PPGStart: 11-27-2024 End: 22-23-8292jjvmzpeohyOMVIG A [facility] Hospitaltart: 11-19-2024 End: 48-35-7128Soszuztnec care visitPfws Ob MidwifeProMedica Physicians Obstetrics/GynecologyComment on above:GA: 99j0aGjggp: 11-19-2024 End: 89-48-6856nxirnkadgkTHSRVP Jenna [facility] Ambulatory PPGStart: 11-19-2024 End: 47-67-4603Uqbltwkql encounterPameldeb Witt Physicians CardiologyStart: 11-17-2024 End: 42-59-6881vdwrwhortdLPCRAODWD [facility] HospitalStart: 11-09-2024 End: 28-31-9193Syfstd outpatient [facility] 60 minutesEmmett Wilkinson MD Work Phone: [facility] Physicians CardiologyComment on above: Vasovagal syncope (Primary Dx); Recurrent syncopeStart: 11-09-2024 End: 64-71-9367ekkqeblredMZXIB A [facility] Hospitaltart: 11-06-2024 End: 72-89-5975pbwwisktvuIREASaint Elizabeth Community Hospital Ambulatory PPGStart: 11-06-2024 End: 32-29-1112Jznekcvtok care visitChrissiesa Lindo Wendy BASKET MACHINE OPERATOR-AND DRYING SUPERVISOR COOKING CASING Work Phone: [facility] Obstetrics/GynecologyComment on above:GA: 93g5iUkrbg: 10-27-2024 End: 94-46-9362upkmuzwcvfTgr Infusion Chair [address] [place] [address] Trevin [facility] - Medical OncologyComment on above:Iron deficiency anemia, unspecified iron deficiency anemia type (Primary Dx); 28 weeks gestation of pregnancyStart: 10-23-2024 End: 43-88-9822Aouopv-up encounterLena Darell Zientek BASKET MACHINE OPERATOR-CNM Work Phone: [facility] Physicians Obstetrics/GynecologyComment on above:CBC auto differential, Iron and TIBC, FerritinStart: 10-23-2024 End: 55-96-2448Akterxprth care visitSanjuanita Rebecca Wendy BASKET MACHINE OPERATOR-AND DRYING SUPERVISOR COOKING CASING Work Phone: [facility] Physicians Obstetrics/GynecologyComment on above:GA: 49f2zVshck: 10-23-2024 End: 11-31-5761jehodhilrjBAVF M [facility] Ambulatory PPGStart: 38-45-2387lmwxxxxetxXJJX R ZIENTEDayton VA Medical Center HospitalStart: 10-19-2024 End: 09-87-8886Omegmlbmq encounterLucinda Nunez [facility] Physicians CardiologyStart: 10-16-2024 End: 61-31-1335wpyuxpwfmvTsz Infusion Chair Cherie Zhong [facility] - Medical OncologyComment on above:Iron deficiency anemia, unspecified iron deficiency anemia type (Primary Dx); 28 weeks gestation of pregnancyStart: 10-15-2024 End: 92-77-4153Cchryoubz encounterSandra Lynn [facility] Physicians CardiologyStart: 10-14-2024 End: 83-48-6776Uncete-up encounterSchantal Johnston BASKET MACHINE OPERATOR-AND DRYING SUPERVISOR COOKING CASING Work Phone: [facility] Physicians Obstetrics/GynecologyComment on above:Urogenital Ureaplasma and Mycoplasma Species by PCR: UrineStart: 10-13-2024 End: 93-22-4522Srwbjbdml encounterTrevor Hurd BASKET MACHINE OPERATOR-CNM Work Phone: [facility] Physicians Obstetrics/GynecologyComment on above:Pelvic PainStart: 10-13-2024 End: 06-93-7134dglkuimiotJhj Infusion Chair Cherie Zhong [facility] OncologyComment on above:28 weeks gestation of (Primary Dx); Iron deficiency anemia, unspecified iron deficiency anemia typeStart: 10-09-2024 End: 62-66-0474Xrfwkitris care visitSchantal Johnston BASKET MACHINE OPERATOR-AND DRYING SUPERVISOR COOKING CASING Work Phone: [facility] Physicians Obstetrics/GynecologyComment on above:GA: 89i5dJorny: 10-09-2024 End: 02-36-8697wrmxdajcdsYXDZVNOur Lady of Lourdes [facility] Ambulatory PPGStart: 09-30-2024 End: 28-11-5151Ufgkti-up encounterAlice Michel MD Work Phone: [facility] Physicians [place] EndocrinologyComment on above:Thyroid profile includes TSH FT4, Thyroid antibodies includes TPO and TGABStart: 09-29-2024 End: 62-43-9601Lkponv outpatient new 45 minutesAlice Michel MD Work Phone: [facility] Physicians [place] EndocrinologyComment on above:Subclinical hypothyroidismStart: 09-29-2024 End: 46-35-0579cbpdekzaycBJJDKRPScenic Mountain Medical Center Ambulatory PPGStart: 09-21-2024 End: 39-50-0798Rphrxp-up encounterNettie Lese BASKET MACHINE OPERATOR-CNM Work Phone: [facility] Physicians Obstetrics/GynecologyComment on above:Iron and TIBC, Thyroid profile includes TSH FT4, Ferritin, Additional followed-up results: 4Start: 09-18-2024 End: 56-64-4358amistfokytKUXQZJOur Lady of Lourdes [facility] Hospital Ambulatory PPGStart: 09-18-2024 End: 88-02-9542Bzspkzkuqm care visitPfws Ob MidwifeProMedica Physicians Obstetrics/GynecologyComment on above:GA: 30h6gYbgmw: 09-08-2024 End: 36-88-3964Aapvst outpatient new 45 minutesLizz Putnam MD Work Phone: [facility] Physicians Neurology [place]Comment on above:Migraine with aura and without status migrainosus, not intractable (Primary Dx); Recurrent syncope; Migraine without aura and without status migrainosus, not intractable; Second trimester ; Hx of migraine during ; Visual disturbancesStart: 09-08-2024 End: 46-13-0868zqyrzxgvofHTOTElkhart General Hospital Ambulatory PPGStart: 09-07-2024 End: 19-76-7957Vtecu Zahra Wilkinson MD Work Phone: [facility] Physicians CardiologyStart: 08-20-2024 End: 59-77-2116Szsnik consultation new/estab patient 40 Liu Lawler MD Work Phone: [facility]aternal Medicine [place] ClintonComment on above: Vasovagal syncope (Primary Dx); 21 weeks gestation of pregnancyStart: 08-20-2024 End: 30-91-9096umjqqnzcszBCROhioHealth [facility] Ambulatory PPGStart: 08-19-2024 End: 61-96-7592Mzevhmfpjt care Rain Nguyen BASKET MACHINE OPERATOR-AND DRYING SUPERVISOR COOKING CASING Work Phone: [facility] Physicians Obstetrics/GynecologyComment on above:GA: 13l3iMytcw: 08-19-2024 End: 27-76-2083qwbrxodrjrQUQT M [facility] CENTERYUSUFTaylor Regional Hospital PPGStart: 32-64-6792rkfljluungDXDX M KROTZERMercy Health Fairfield Hospital HospitalStart: 08-03-2024 End: 63-19-1444Fkznnf OnlySanjuanita Nguyen BASKET MACHINE OPERATOR-AND DRYING SUPERVISOR COOKING CASING Work Phone: [facility] Physicians Obstetrics/GynecologyComment on above: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); with 18 completed weeks gestationStart: 07-29-2024 End: 45-56-3479Jsxwpu outpatient visit 15 minutesPws Ob MidwifeProMercy Health [facility] Hospitalca Women's Services - CyldeComment on above:Screening for STD (sexually transmitted disease) (Primary Dx); BV (bacterial vaginosis)Start: 07-29-2024 End: 75-07-1336ahmxylazvhAPVWUY B [facility] Ambulatory PPGStart: 07-16-2024 End: 29-20-3249Xclvbopiq encounterPatricia GottiGulf Breeze Hospital Neurology, A Department of [facility] HospitalComment on above:New PatientStart: 36-37-7207srbyhjveozTNPG M KROTZERMetroHealth [facility] HospitalStart: 07-15-2024 End: 55-62-1197Rzrxtppwrl care visitPws Ob MidwifeProMedica Women's Services - CyldeComment on above:GA: 68i8xXulii: 07-15-2024 End: 25-12-9411mjhvxirhdcEYAJQFOur Lady of Lourdes [facility] Ambulatory PPGStart: 06-22-2024 End: 72-35-5540Olxspflba Josephine Boucher CMAProMedica Physicians Obstetrics/GynecologyStart: 06-18-2024 End: 78-51-6891Orcjms Harjit Boucher CMAProMedica Physicians Obstetrics/GynecologyComment on above: care, first trimester (Primary Dx)Start: 06-17-2024 End: 56-14-2221nezjnhijjpPSDD M KROTZERProMedica Falls Church HospitalStart: 06-17-2024 End: 26-18-0580oxkgwnsothPMDB M KROTZERProMediScotland County Memorial Hospital HospitalStart: 06-17-2024 End: 85-85-8685Ypddvhaajl care visitPws Ob MidwifeProMedica Women's Services - CyldeComment on above:GA: 41z3rQkrge: 06-17-2024 End: 21-52-5334mmnxjcumdwOROABROur Lady of Lourdes [facility] Ambulatory PPGStart: 06-11-2024 End: 72-87-9215msmhekxtckPGZIASEDN M [facility] Ambulatory PPG Start: 63-62-4154aveddghlryAUVS M KROTZERProMedica South Shore HospitalStart: 05-28-2024 End: 38-25-8659jkhhhzothmJDKE M KROTZERProMedica South Shore HospitalStart: 05-21-2024 End: 78-97-0241Mwpkrt Karmen Nguyen APRN-AND DRYING SUPERVISOR COOKING CASING Work Phone: [facility] Obstetrics/GynecologyComment on above:BV (bacterial vaginosis) (Primary Dx)Start: 05-20-2024 End: 53-42-2128qetleeonjeVDCO M KROTZERProMedica Falls Church HospitalStart: 05-20-2024 End: 72-17-9941Dcearku care visitPwsc Ob MidwifeProMedica Women's Services - CyldeComment on above:GA: 4b1gIoekp: 05-20-2024 End: 79-44-6899xstvlmrguyRAYMWI B [facility] Ambulatory PPGStart: 05-20-2024 End: 85-69-6598Jzpppbnso for gynecological examination (general) (routine) without abnormal findingsFauquier Health System SystemStart: 05-20-2024 End: 92-26-4738csgxqwgmxyDNKB M KROTZERMercy Health St. Vincent Medical Centertart: 64-02-6345Yycpatesi for gynecological examination (general) (routine) without abnormal findingsSANJUANITA PERKINSYUSUFMercy Health St. Vincent Medical Centertart: 05-14-2024 End: 41-21-2766Byfhtn Karmen Nguyen BASKET MACHINE OPERATOR-AND DRYING SUPERVISOR COOKING CASING Work Phone: [facility] Obstetrics/GynecologyComment on above:Nausea/vomiting in pregnancyStart: 05-13-2024 End: 03-39-5473Blerja Karmen Nguyen BASKET MACHINE OPERATOR-AND DRYING SUPERVISOR COOKING CASING Work Phone: [facility] Obstetrics/GynecologyComment on above:Nausea/vomiting in (Primary Dx)Start: 05-11-2024 End: 97-59-6479Kutrib Karmen Nguyen BASKET MACHINE OPERATOR-AND DRYING SUPERVISOR COOKING CASING Work Phone: [facility] Obstetrics/GynecologyComment on above: care, first trimester (Primary Dx)Start: 05-05-2024 End: 35-46-9286Hzoimuz care visitSanjuanita Nguyen BASKET MACHINE OPERATOR-AND DRYING SUPERVISOR COOKING CASING Work Phone: [facility] Physicians Obstetrics/GynecologyComment on above:First trimester (Primary Dx)Start: 05-05-2024 End: 60-43-5637zvqfosgcdhZVIE M [facility] MEDICAL CENTERYUSUFParkview Health Ambulatory PPGStart: 12-25-2023 End: 24-95-6312kscbbszoquLKWBOYFMUSC Health [facility] Ambulatory PPG Start: 12-25-2023 End: 19-33-5414Kicqvz follow up visit related to original Silvino Boucher BASKET MACHINE OPERATOR-AND DRYING SUPERVISOR COOKING CASING Work Phone: [facility] General SurgeryComment on above: Status post laparoscopic appendectomy (Primary Dx)Start: 12-19-2023 End: 46-96-5744Jxpfhv OnlyNot In System Ref ProvProMedica Physicians General SurgeryStart: 12-13-2023 End: 10-67-1336Kbheak OnlySofía Boyd Sander BASKET MACHINE OPERATOR-AND DRYING SUPERVISOR COOKING CASING Work Phone: [facility] General SurgeryComment on above: Status post laparoscopic appendectomy (Primary Dx); Postoperative painStart: 12-12-2023 End: 29-48-4766obshjnkptpLtkpxtf E [facility] Work Phone: Start: 12-12-2023 End: 58-36-1388Mzymdien ReferredDO Kj Mcclelland Work Phone: [facility] C[facility]-LAB Path Spec Milagros HospStart: 12-12-2023 End: 71-00-4305Swupib Ronen Huntley ORGANIC LAB WORKER Work Phone: [facility] FMStart: 12-12-2023 End: 22-76-7769Eiugkvscott Huntley ORGANIC LAB WORKER Work Phone: [facility] FMStart: 12-12-2023 End: 33-45-5818Isxgsb outpatient visit 10 Jovanny Huntley ORGANIC LAB WORKER Work Phone: [facility] FMComment on above:Lower abdominal pain (Primary Dx)Start: 12-12-2023 End: 98-76-3692cpgoglzcbfIVO C MILLERNot AvailableStart: 08-28-2023 End: 73-27-9983jljoewynfeVHZGTG B BERRYNot AvailableStart: 04-10-2022 End: 81-07-8924iqjyqkmpurHbemy Can HermillerFacility:[facility] - ClarkStart: 06-08-2020 End: 42-48-9887Pojvkbt encounter procedureNILDA RIVERAFort Hamilton Hospitalquyen [facility] Hospitaltart: 06-08-2020 End: 57-22-5450Itrbrcogal hospital visit by physicianSDAPHNE SMITH Frances OB and ADJUNCT INSTRUCTOR OF WOMEN'S STUDIES Comment on above:Late menses Procedures DateProcedureProcedure DetailPerforming ClinicianStart: 48-43-6907Xvqbu depression screening assessmentShani MillanStart: 15-84-7515Fsdnk count complete automatedStephanie Deb Egan BASKET MACHINE OPERATOR-CNM Work Phone: Start: 12-24-2024 End: 83-15-9789Vopzmqoi sectionCorey R Imelda DO Work Phone: Start: 64-32-5828Rkzcnbtq screenLISA NGUYENComment on above:Performed By: #### CBC, 90219-7, 58693-5, AHP, 37592-4, 26116-0, 98989-3 #### [facility] ([id number]) [address] [place], [place] [address]Xvlew: 07-22-5857Qjwda count complete automatedKathleen S Dunsmuir BASKET MACHINE OPERATOR-CNM Work Phone: Start: 80-86-4901Xdxyl typing serologic aboKathleen S Dunsmuir BASKET MACHINE OPERATOR-CNM Work Phone: Start: 78-58-2369IXNGY TUBESKathleen S Dunsmuir BASKET MACHINE OPERATOR-CNM Work Phone: Start: 63-70-8961WKUGO TUBES PST TOPKathleen S Dunsmuir BASKET MACHINE OPERATOR-CNM Work Phone: Start: 23-45-7963Dtz routine ecg w/least 12 lds w/i&r Emmett Wilkinson MD Work Phone: Start: 63-69-6213UCFWY FREE CELL DNA (NON-[facility]) Sanjuanita Nguyen BASKET MACHINE OPERATOR-AND DRYING SUPERVISOR COOKING CASING Work Phone: Start: 17-08-4037Dgwubunwbpt observation [Identifier] in Cervix by Cyto stainLivingston Hospital And Health Services MidwifeStart: 27-63-7416Lwlpjr-up visitFollow-up SOFÍA BOUCHERStart: 51-18-0983Nzmtm i surg pathology gross examination only Not In System Ref ProvStart: 71-41-8103Umunlgfbzums alexei Díaz Marcin Plan of Treatment DateCare ActivityDetailAuthorStart: 40-53-7699TMjY,Tdap and Td Vaccines (5 - Td or Tdap)DTaP,Tdap and Td Vaccines (5 - Td or Tdap)[facility] SystemStart: 42-54-9656Vyotofrxn for malignant neoplasm of cervixPap SmearProMercy Health Tiffin Hospitalca Health SystemStart: 26-22-7159Fagfuulkoo ScreeningDepression ScreeningGalion Community Hospitalca [facility] SystemStart: 93-53-8566Pfhtlna ScreeningTobacco ScreeningGalion Community Hospitalca [facility] Start: 51-18-1979Yjkjf BMI ScreeningAdult BMI ScreeningGalion Community Hospitalca [facility] Start: 08-23-8661Sfopd BMI ScreeningAdult BMI ScreeningGalion Community Hospitalca [facility] Start: 49-14-8611Qrxywtt ScreeningTobacco ScreeningGalion Community Hospitalca Health SystemStart: 80-08-8159Rxepj BMI ScreeningAdult BMI ScreeningProMercy Health Tiffin Hospitalca Health SystemStart: 11-10-3410Mczcwca ScreeningTobacco ScreeningGalion Community Hospitalca Health SystemStart: 06-31-6051Fanam BMI ScreeningAdult BMI ScreeningProMercy Health Tiffin Hospitalca Health SystemStart: 34-10-4094Eskapjh ScreeningTobacco ScreeningProMedica Health SystemStart: 17-64-0368Oibay BMI ScreeningAdult BMI ScreeningProMedica Health SystemStart: 81-73-3817Zvhmkgx ScreeningTobacco ScreeningProMedica Health SystemStart: 02-42-1907Qkmqr BMI ScreeningAdult BMI ScreeningProMedica Health SystemStart: 07-59-7656Lnfvvyg ScreeningTobacco ScreeningProMedica Health SystemStart: 40-42-4242Gnopw BMI ScreeningAdult BMI ScreeningProMedica Health SystemStart: 22-10-5728Blzjukq ScreeningTobacco ScreeningProMedica Health SystemStart: 97-44-4603Xcish BMI ScreeningAdult BMI ScreeningProMedica Health SystemStart: 18-58-9522Hiocedj ScreeningTobacco ScreeningProMedica Health SystemStart: 36-85-9688Zkrwo BMI ScreeningAdult BMI ScreeningProMedica Health SystemStart: 67-67-9896Dfilprl ScreeningTobacco ScreeningProMedica Health SystemStart: 82-49-2787Wenol BMI ScreeningAdult BMI ScreeningProMedica Health SystemStart: 63-02-3954Ywsbfep ScreeningTobacco ScreeningProMedica Health SystemStart: 82-82-7819Sqeyl BMI ScreeningAdult BMI ScreeningProMedica Health SystemStart: 85-99-9046Edeid BMI ScreeningAdult BMI ScreeningProMedica Health SystemStart: 63-27-3532Wyqsuno ScreeningTobacco ScreeningProMedica Health SystemStart: 17-34-4301Srskd BMI ScreeningAdult BMI ScreeningProMedica Health SystemStart: 94-48-8219Qkklggj ScreeningTobacco ScreeningProMedica Health SystemStart: 55-67-8659Atiar BMI ScreeningAdult BMI ScreeningProMedica Health SystemStart: 86-36-9567Rtziikm ScreeningTobacco ScreeningProMedica Health SystemStart: 49-18-6059Tfona BMI Follow Up PlanAdult BMI Follow Up PlanProMedica Health SystemStart: 66-50-2508Ninoy BMI ScreeningAdult BMI ScreeningProMedica Health SystemStart: 47-21-2290Tmjvsfe ScreeningTobacco ScreeningProMedica Health System Start: 62-63-7113Wmzme BMI ScreeningAdult BMI ScreeningProMedica Health System Start: 68-15-8483Ixauvss ScreeningTobacco ScreeningProMedica Health SystemStart: 16-95-4972Neket BMI ScreeningAdult BMI ScreeningProMedica Health SystemStart: 63-52-5557Ujunodv ScreeningTobacco ScreeningProMedica Health SystemStart: 34-13-3145Jcegc BMI ScreeningAdult BMI ScreeningProMedica Health SystemStart: 83-79-8301Aceiurk ScreeningTobacco ScreeningProMedica Health SystemStart: 52-96-3118Zfkhi BMI ScreeningAdult BMI ScreeningProMedica Health SystemStart: 17-29-7005Ujxwodu ScreeningTobacco ScreeningProMercy Health Tiffin Hospitalca Health SystemStart: 24-71-6749Pmmxm BMI ScreeningAdult BMI ScreeningProMercy Health Tiffin Hospitalca Health SystemStart: 41-06-7369Zpgrwls ScreeningTobacco ScreeningProMercy Health Tiffin Hospitalca Health SystemStart: 23-58-9909Uobow BMI ScreeningAdult BMI ScreeningProMercy Health Tiffin Hospitalca Health SystemStart: 68-23-5829Jlimfgq ScreeningTobacco ScreeningProMercy Health Tiffin Hospitalca Health SystemStart: 52-90-7327Obphctf ScreeningTobacco ScreeningProMercy Health Tiffin Hospitalca Health SystemStart: 03-01-2025 End: 66-56-9858Zehoyct encounter xlmirkfwu26/05/2026 10:00 AM EST Office Visit [facility] [address] [place] [phone] Alice Michel MD [address] [place] [address] [facility]ocrinologyStart: 02-15-2025 End: 49-68-2305Rjxpjjv encounter pvnetalpq27/22/2025 9:00 AM EST Office Visit [facility] [address] [facility] [address] [place] [phone] Nigel Kincaid MD [address] [place] [address] [facility] CardiologyStart: 26-61-8049Qerbx BMI ScreeningAdult BMI ScreeningProMercy Health Tiffin Hospitalca [facility] SystemStart: 12-22-2024 End: 93-82-7020Fbuihff encounter tmrfisnur99/28/2025 2:15 PM EDT Routine [facility] Ob[facility]ne[facility] [address] [place] [address] Kassy Duncan MD [address] [place] [address] [facility] Obstetrics/GynecologyStart: 12-18-2024 End: 13-54-5801Usmovjd encounter wvtweifix76/24/2025 1:30 PM EDT Appointment [facility] - Ultrasound [address] [place] [phone] Sanjuanita Nguyen, BASKET MACHINE OPERATOR-AND DRYING SUPERVISOR COOKING CASING [address] [place] [address] [facility] - UltrasoundStart: 12-18-2024 End: 46-46-4724Wweswim encounter znejieies39/24/2025 10:45 AM EDT Routine [facility]Gynecology [facility] [phone] Sanjuanita Nguyen, BASKET MACHINE OPERATOR-AND DRYING SUPERVISOR COOKING CASING [address] [place] [address] [facility] Obstetrics/GynecologyStart: 12-11-2024 End: 73-14-3827MC for limitedUltrasound transabdominal follow up per fetus Imaging Routine care, third trimester Uterine size- date discrepancy in third trimester Expected: 12/11/2024, Expires: 12/11/2025 [facility] Work Phone: Comment on above:Expected: 12/11/2024, Expires: 12/11/2025Start: 12-11-2024 End: 98-66-0518Rwacdro encounter ceytgtxpz45/17/2025 11:30 AM EDT Routine [facility] [address] [address] Sanjuanita Nguyen, BASKET MACHINE OPERATOR-AND DRYING SUPERVISOR COOKING CASING [address] [place] [address] [facility] Obstetrics/GynecologyStart: 12-10-2024 End: 12-31-7366Dvpwkvf encounter fxbzgcgot67/16/2025 1:00 PM EDT Appointment [facility] - Cardiovascular [address] [place] [address] Emmett Wilkinson MD [address] [place] [address] [facility] - CardiovascularStart: 12-03-2024 End: 32-85-2627Qslmtfc encounter dssfzcthi47/09/2025 2:15 PM EDT Routine [facility]ne[facility] [address] [facility] [place] [address] Sanjuanita Nguyen, BASKET MACHINE OPERATOR-AND DRYING SUPERVISOR COOKING CASING [address] [place], [place] [address] [facility] Obstetrics/GynecologyStart: 11-27-2024 End: 46-79-5020Ualtzpj encounter procedureProGerman Hospital CardiovascularStart: 11-19-2024 End: 83-26-0638Dygryre encounter /25/2025 2:30 PM EDT Routine [facility]necology [address] [place] [address] [facility]etric[facility]/Gynecology Start: 11-10-2024 End: 94-18-1328gcmabqbpxl30/16/2025 2:30 PM EDT Infusion Jessy Eaton [facility] - Medical Oncology [address] [place] [phone] Jessy Eaton [facility] - Medical OncologyStart: 11-09-2024 End: 54-39-0006Mmpo complete W/O contrastEcho complete W/O contrast Echocardiography Routine Vasovagal syncope Recurrent syncope Expected: , Expires: 11/09/2025ProNozomi Photonics SystemComment on above:Expected: 11/09/2024, Expires: 11/09/2025Start: 11-09-2024 End: 01-73-1566Wmstwn monitor studyHolter monitor 3-5 days Cardiac Services Routine Vasovagal syncope Recurrent syncope Expected: 11/09/2024, Expires: 11/09/2025[facility] Work Phone: Comment on above:Expected: 11/09/2024, Expires: 11/09/2025Start: 11-09-2024 End: 90-28-7117Lcrrjoc encounter zpnfncobv36/15/2025 9:00 AM EDT Office Visit [facility] [address] [place] [address] Emmett Wilkinson MD [address] [place] [address] [facility] CardiologyStart: 11-06-2024 End: 30-95-1780Jtokzkd encounter bxsiuvkbx82/12/2025 10:45 AM EDT Routine [facility]Gynecology [address] [facility] [place] [address] Sanjuanita Nguyen, BASKET MACHINE OPERATOR-AND DRYING SUPERVISOR COOKING CASING [address] [place], [place] [address] [facility] Obstetrics/GynecologyStart: 11-03-2024 End: 37-69-8077kqtfaoqyzo40/09/2025 2:30 PM EDT Infusion Jessy Eaton [facility] - Medical Oncology [address] [place] [phone] Jessy Eaton [facility] - Medical OncologyStart: 11-02-2024 End: 35-08-0251Mzfsdqe profile includes TSH LW2Pgnrbal profile includes TSH FT4 Lab Routine Subclinical hypothyroidism Expected: 11/02/2024 (Approximate), Expires: 09/21/2025[facility] SystemComment on above:Expected: 11/02/2024 (Approximate), Expires: 09/21/2025Start: 11-02-2024 End: 59-99-0145glvdosqbql23/08/2025 10:00 AM EDT Lab [facility] - Lab [address] [place] [address] [phone] Psychiatric [facility] - LabStart: 10-31-2024 End: 45-72-7972KJL with ReflexTSH with Reflex Lab Routine Subclinical hypothyroidism , unspecified gestational age Expected: 10/31/2024 (Approximate), Expires: 09/30/2025[facility] Work Phone: comment on above:Expected: 10/31/2024 (Approximate), Expires: 09/30/2025Start: 10-27-2024 End: 77-60-5233ulxjtsytds07/02/2025 1:00 PM EDT Infusion Jessy L Angelito [facility] - Medical Oncology [address] [place] [phone] Jessy L Pickett [facility] - Medical OncologyStart: 29-93-5417KBLBH-19 Vaccine ( season)COVID-19 Vaccine ( season)[facility] SystemStart: 50-08-5956Eahwasnrc vaccinationInfluenza VaccineProSelect Medical [facility] SystemStart: 10-23-2024 End: 12-37-1426viwbzofgdj15/29/2025 1:00 PM EDT Infusion Jessy L Pickett [facility] - Medical Oncology [address] [place] [phone] Jessy Zhong Pickett [facility] Medical OncologyStart: 10-23-2024 End: 53-74-5049Iesufft encounter eereyccmp27/29/2025 10:00 AM EDT Routine [facility]ne[facility] [address] [facility] [place] [address] Sanjuanita Nguyen, BASKET MACHINE OPERATOR-AND DRYING SUPERVISOR COOKING CASING [address] [place] [address] [facility] Obstetrics/GynecologyStart: 10-22-2024 End: 05-04-8860QLK W Auto Differential panel - BloodCBC auto differential Lab Routine Iron deficiency anemia secondary to inadequate dietary iron intake Expected: 10/22/2024 (Approximate), Expires: 09/21/2025[facility] Work Phone: Comment on above:Expected: 10/22/2024 (Approximate), Expires: 09/21/2025Start: 10-22-2024 End: 66-06-8636Buyhrszg [Mass/volume] in Serum or PlasmaFerritin Lab Routine Iron deficiency anemia secondary to inadequate dietary iron intake Expected: (Approximate), Expires: 09/21/2025[facility] SystemComment on above:Expected: 10/22/2024 (Approximate), Expires: 09/21/2025Start: 10-22-2024 End: 61-26-2700Cowe and TIBCIron and TIBC Lab Routine Iron deficiency anemia secondary to inadequate dietary iron intake Expected: 10/22/2024 (Approximate), Expires: 09/21/2025[facility] HospitalComment on above:Expected: 10/22/2024 (Approximate), Expires: 09/21/2025Start: 10-22-2024 End: 04-74-7610bgrhuebect73/28/2025 10:20 AM EDT Lab [facility] - Lab [address] [place] [address] [facility] - LabStart: 10-20-2024 End: 70-47-0208wbtcyhemzl17/26/2025 1:00 PM EDT Infusion Jessy Eaton [facility] - Medical Oncology [address] [place] [phone] Jessy Eaton [facility] - Medical OncologyStart: 10-16-2024 End: 68-35-5363irjtfjzejm64/22/2025 2:00 PM EDT Infusion Jessy Eaton [facility] - Medical Oncology [address] [place] [phone] Jessy Eaton [facility] - Medical OncologyStart: 10-15-2024 End: 36-22-8473Uhabxoq encounter oyomizzpa41/21/2025 11:00 AM EDT Office Visit [facility] Card[facility] [address] [place] [address] Emmett Wilkinson MD [address] [place] [address] Aletha Forrester MD [address] [facility] [address] [place], [place] [phone] [facility] Start: 10-13-2024 End: 14-50-2919yocluyjkfm95/19/2025 1:30 PM EDT Infusion Jessy L [facility] - Medical Oncology [address] [place] [phone] Jessy L [facility] - Medical OncologyStart: 10-09-2024 End: 93-77-2057Upmgxkq encounter aqxsznztm07/15/2025 9:45 AM EDT Routine [facility] Ob[facility]Gynecology [address] [facility] [place] [address] [facility] Obstetrics/Gynecology Start: 09-15-2024 End: 35-66-1048Bcvkyha encounter vaoaslecm15/22/2025 3:00 PM EDT Office Visit [facility] Card[facility] [address] [place] [phone] Emmett Wilkinson MD [address] [place] [address] [facility] CardiologyStart: 09-14-2024 End: 50-50-6831Cpnorgv encounter eotlhjegv04/21/2025 1:45 PM EDT Routine [facility] Obstetrics/Gynecology [address] [facility] [place] [address] Sanjuanita Nguyen, BASKET MACHINE OPERATOR-AND DRYING SUPERVISOR COOKING CASING [address] [place], [place] [address] [facility] Obstetrics/GynecologyStart: 09-08-2024 End: 45-88-3802MD Brain WO contrastMR brain without contrast Imaging Routine Migraine with aura and without status migrainosus, not intractable Recurrent syncope Expected: 09/08/2024, Expires: 09/08/2025[facility] Work Phone: Comment on above:Expected: 09/08/2024, Expires: 09/08/2025Start: 09-08-2024 End: 92-58-6691Ojkwdqj encounter sxgdykbfp41/15/2025 10:00 AM EDT Office Visit [facility] [place] [place] [address] Lizz Putnam MD [address] [facility], [facility] [address] [place] [phone] [facility]: 08-20-2024 End: 51-29-3230Kiklelgqbohc consultation with ffysixt9308/20/2024 2:30 PM EDT Telemedicine [facility] [place] [address] [address] Alessandro Lawler MD [address] [facility] 1st Floor [place], [place] [phone] [facility]: 08-20-2024 End: 67-84-8483Mtbqetr encounter brhpjrzji94/26/2025 1:00 PM EDT Appointment [facility] [place] [address] [address] [facility] Medicine [place] [facility] AcomaStart: 08-12-2024 End: 47-83-2060Lrqjrce encounter /18/2025 2:15 PM EDT Routine [facility] Ob[facility]Gynecology [address] [facility] [place] [address] Sanjuanita Nguyen, BASKET MACHINE OPERATOR-AND DRYING SUPERVISOR COOKING CASING [address] [place], [place] [phone] [facility] Obstetrics/GynecologyStart: 07-15-2024 End: 28-71-4707GN MFM with or without consultUS MFM with or without consult Imaging Routine Second trimester Hx of migraine during Visual disturbances Syncope and collapse Expected: 07/15/2024, Expires: 07/15/2025[facility] Work Phone: Comment on above:Expected: 07/15/2024, Expires: 07/15/2025Start: 07-15-2024 End: 18-60-8036Lrzqnqh encounter abfitirxp00/21/2025 1:00 PM EDT [facility] [place] [address] [place] [address] ZyuWewuyr [facility] Services - CyldeStart: 06-17-2024 End: 39-46-7099Wsrjcqf encounter jynidifsc80/23/2025 1:00 PM EDT [facility] [place] [address] [place] [address] LfeVkfxlw [facility] - CyldeStart: 06-11-2024 End: 90-21-1318Mlhengu encounter /17/2025 1:00 PM EDT Procedure visit [facility] Ob[facility]Gynecology [address] [place] [address] Delicia Johnston, BASKET MACHINE OPERATOR-AND DRYING SUPERVISOR COOKING CASING [address] [facility] [place] [address] [facility] Obstetrics/GynecologyStart: 05-28-2024 End: 60-03-1923Srnqpag encounter ayjbczwkj91/03/2025 1:30 PM EDT Appointment [facility] - Ultrasound [address] [place] [address] [phone] [facility] - UltrasoundStart: 05-20-2024 End: 21-24-8687Hdavepqo report of Cervical or vaginal smear or scraping Cyto stain.thin prepPap Smear Pathology and Cytology Routine Cervical smear, as part of routine gynecological examination Expected: 05/20/2024 (Approximate), Expires: 05/20/2025[facility] Work Phone: Comment on above:Expected: 05/20/2024 (Approximate), Expires: 05/20/2025Start: 05-20-2024 End: 86-07-7864Ubvrygqxf Panel PCRVaginitis Panel PCR Microbiology Routine Acute vaginitis Expected: 05/20/2024 (Approximate), Expires: 05/20/2025ProBay[facility] Hospital Health SystemComment on above:Expected: 05/20/2024 (Approximate), Expires: 05/20/2025Start: 05-20-2024 End: 80-78-2260kzbzkduvdw05/26/2025 1:30 PM EDT Initial [facility] [place] [address] [place] [address] [facility] - CyldeStart: 05-11-2024 End: 73-74-8070HK transvaginal for pregnancyUltrasound less than 14 weeks with transvaginal Imaging Routine care, first trimester Expected: 05/11/2024, Expires: 05/11/2025[facility] Work Phone: Comment on above:Expected: 05/11/2024, Expires: 05/11/2025Start: 05-08-2024 End: 08-12-2942Ocgoliu encounter xxgcsyiob46/14/2025 9:30 AM EDT Appointment [facility] - Ultrasound [address] [place] [phone] Sanjuanita Nguyen, BASKET MACHINE OPERATOR-AND DRYING SUPERVISOR COOKING CASING [address] [place] [address] [facility] - UltrasoundStart: 05-05-2024 End: 68-36-9556OO transvaginal for pregnancyUltrasound less than 14 weeks with transvaginal Imaging Routine First trimester pregnancyExpected: 05/05/2024, Expires: 05/05/2025[facility] Work Phone: Comment on above:Expected: 05/05/2024, Expires: 05/05/2025Start: 12-25-2023 End: 75-73-4081Usiklag encounter fgnuhjmkt16/30/2024 9:00 AM EDT Office Visit [facility] [address] [place], [phone] Sofía Boucher, BASKET MACHINE OPERATOR-AND DRYING SUPERVISOR COOKING CASING [address] [place] [address] [facility] General SurgeryStart: 12-12-2023 End: 64-17-2113Szzjhqg encounter vjzfmkzai35/17/2024 1:30 PM EDT Office Visit [facility] [address] [place] [address] Ramiro Huntley, ORGANIC LAB WORKER [address] [place] [address] ArrivedNOKS CI FMComment on above:ArrivedStart: 19-60-8719XMJJR-19 Vaccine ( season)COVID-19 Vaccine ( season)[facility] [employer] SystemStart: 73-34-2872Sbofrvddu vaccinationParkland Health CenterStart: 90-33-1653Saeuo BMI ScreeningAdult BMI ScreeningCleveland Clinic [facility]mount Hospital SystemStart: 06-68-1030Grxqcfotx vaccinationFlu vaccine (Season Ended) [employer] Phone: start: 08-16-2020 End: 42-22-8917Nbfeaglcu ProcedureCoshocton [facility] Obst[facility] & Gy[facility] Start: 24-40-7678Rdqmegaah for malignant neoplasm of cervixProMercy Health Tiffin HospitalOpen Road Integrated [employer] SystemStart: 73-31-0570UXjH,Tdap and Td Vaccines (4 - Tdap)DTaP,Tdap and Td Vaccines (4 - Tdap)[facility] CenterGatekeeper Systemtart: 27-99-8994GHdV/Tdap/Td vaccine (1 - Tdap)DTaP/Tdap/Td vaccine (1 - Tdap)[employer] Phone: start: 30-08-1065YVRSM-19 Vaccine (1)COVID-19 Vaccine (1)[employer] Phone: start: 74-26-8946JNT screeningHIV screenAppnomic Systems Phone: start: 48-09-9022Wvfpugvlwk ScreeningDepression ScreeningGalion Community HospitalFocus Financial Partnerstart: 82-35-7788Gnptfrm ScreeningTobacco ScreeningGalion Community HospitalFocus Financial Partnerstart: 16-84-6655AJU vaccine (1 - 2-dose series) HPV vaccine (1 - 2-dose series)[employer] Phone: start: 46-24-7582Ffaxndauw vaccine (1 of 2 - 2-dose childhood series)Varicella vaccine (1 of 2 - 2-dose childhood series)[employer] Phone: start: 83-90-5413Ahzuxzigl C screeningHepatitis C screenFort Hamilton HospitalMicroCoal Phone: End: 11-68-4951ZJQ Single Marker Scrn, Maternal, SerumAFP Single Marker Scrn, Maternal, Serum Lab Routine Second trimester 1 Occurrences starting 07/15/2024 until 07/15/2025[facility] HospitalAcorn InternationalComment on above:1 Occurrences starting 07/15/2024 until 07/15/2025 End: 77-96-6522Ctqowpoc identified in Urine by CultureUrine Culture Microbiology Routine First trimester 1 Occurrences starting 05/05/2024 until 05/05/2025[facility]erculosis HospitalAcorn InternationalComment on above:1 Occurrences starting 05/05/2024 until 05/05/2025 End: 09-62-9697Tfrrnxt Study Non-ProMedicaCarrier Study Non-[facility] Lab Routine care, first trimester 1 Occurrences starting 06/18/2024 until 06/18/2025[employer] Phone: Comment on above:1 Occurrences starting 06/18/2024 until 06/18/2025 End: 16-33-6045QFH panel - Blood by Automated countCBC without diff Lab Routine First trimester 1 Occurrences starting 05/05/2024 until 05/05/2025 [facility] HospitalComment on above:1 Occurrences starting 05/05/2024 until 05/05/2025 End: 99-38-1939Atheqsopc/Gonorrhoeae by PCR, FluidChlamydia/Gonorrhoeae by PCR, Fluid Microbiology Routine care, first trimester 1 Occurrences starting 05/20/2024 until 05/20/2025[facility] HospitalComment on above:1 Occurrences starting 05/20/2024 until 05/20/2025 End: 40-14-5945Zyuhtylhvol all L&D and recovery ordersDiscontinue all L&D and recovery orders OB Routine Once for 1 Occurrences starting 12/24/2024 until 12/24/2024[facility] HospitalComment on above:Once for 1 Occurrences starting 12/24/2024 until 12/24/2024 End: 28-42-9297Hewj Screen, UrineDrug Screen, Urine Lab Routine First trimester 1 Occurrences starting 05/05/2024 until 05/05/2025[facility] HospitalComment on above:1 Occurrences starting 05/05/2024 until 05/05/2025 End: 04-88-2922FFPFNT Neurology Routine Migraine with aura and without status migrainosus, not intractable Migraine without aura and without status migrainosus, not intractable 1 Occurrences starting 09/08/2024 until 09/08/2025 [facility] HospitalComment on above:1 Occurrences starting 09/08/2024 until 09/08/2025 End: 11-02-6123Lbmijums [Mass/volume] in Serum or PlasmaFerritin Lab Routine related fatigue in second trimester 1 Occurrences starting 09/18/2024 until 09/18/2025[facility] HospitalComment on above:1 Occurrences starting 09/18/2024 until 09/18/2025Ferritin [Mass/volume] in Serum or PlasmaFerritin Lab Routine related fatigue in second trimester 09/18/2024 1:43 PM EDT [facility] End: 47-83-1146MDO, Quantitative, PregnancyHCG, Quantitative, Lab Routine First trimester 1 Occurrences starting 05/05/2024 until 05/05/2025[facility] HospitalComment on above:1 Occurrences starting 05/05/2024 until 05/05/2025 End: 38-29-2411Kibullrfi panel, acuteHepatitis panel, acute Lab Routine First trimester 1 Occurrences starting 05/05/2024 until 05/05/2025[facility] SystemComment on above:1 Occurrences starting 05/05/2024 until 05/05/2025 End: 98-81-7654Qcib risk HPV w/genoHigh risk HPV w/israel Lab Routine Cervical smear, as part of routine gynecological examination 1 Occurrences starting 05/20/2024 until 05/20/2025[facility] SystemComment on above:1 Occurrences starting 05/20/2024 until 05/20/2025 End: 71-33-7860SNR 1&2 AB/AG Screen (P24 AG)HIV 1&2 AB/AG Screen (P24 AG) Lab Routine First trimester 1 Occurrences starting 05/05/2024 until 05/05/2025ProSelect Medical [facility] SystemComment on above:1 Occurrences starting 05/05/2024 until 05/05/2025 End: 37-79-9204Tntjes Therapy - Maintain SpO2: 90% or greater; *ALUMINUM MOLDING MACHINE OPERATOR Guidelines for O2: Yes; Document: \The Learning ExperienceAcademyi.VersionOneed ica.org\epic\EPIC_Reference\Orders\Respiratory Care Guidelines\CPG Oxygen 2022.pdfOxygen Therapy - Maintain SpO2: 90% or greater; *ALUMINUM MOLDING MACHINE OPERATOR Guidelines for O2: Yes; Document: \The Learning ExperienceAcademyi.VersionOneedica.org\epic\EPIC_Reference\Orders\Respiratory Care Guidelines\CPG Oxygen 2022.pdf Respiratory CareRoutine As Needed until discontinued starting 12/24/2024[employer] Work Phone: comment on above:As Needed until discontinued starting 12/24/2024Oxygen Therapy - Maintain SpO2: 95% or greater; *ALUMINUM MOLDING MACHINE OPERATOR Guidelines for O2: Yes; Document: \The Learning ExperienceAcademyi.VersionOneedica.org\epic\EPIC_Reference\Orders\Respiratory Care Guidelines\CPG Oxygen 2022.pdfOxygen Therapy - Maintain SpO2: 95% or greater; *ALUMINUM MOLDING MACHINE OPERATOR Guidelines for O2: Yes; Document: \The Learning ExperienceAcademyi.VersionOneed ica.org\epic\EPIC_Reference\Orders\Respiratory Care Guidelines\CPG Oxygen 2022.pdf Respiratory CareRoutine As Needed until discontinued starting 12/24/2024[facility] Work Phone: Comment on above:As Needed until discontinued starting 12/24/2024Oxygen Therapy - Maintain SpO2: 95% or greater; *ALUMINUM MOLDING MACHINE OPERATOR Guidelines for O2: Yes; Document: \The Learning ExperienceAcademyi.VersionOneedica.org\epic\EPIC_Reference\Orders\Respiratory Care Guidelines\CPG Oxygen 2022.pdfOxygen Therapy - Maintain SpO2: 95% or greater; *ALUMINUM MOLDING MACHINE OPERATOR Guidelines for O2: Yes; Document: \The Learning ExperienceAcademyi.VersionOneed ica.org\epic\EPIC_Reference\Orders\Respiratory Care Guidelines\CPG Oxygen 2022.pdf Respiratory CareRoutine As Needed until discontinued starting 12/24/2024[facility] SystemComment on above:As Needed until discontinued starting 12/24/2024 End: 47-29-1605Csblvol creat ratioProtein creat ratio Lab Routine care, first trimester headache in first trimester Visual disturbance 1 Occurrences starting 06/17/2024 until 06/17/2025[employer] Work Phone: Comment on above:1 Occurrences starting 06/17/2024 until 06/17/2025 End: 95-26-6223Gqqtyrm IGG immune statusRubella IGG immune status Lab Routine First trimester 1 Occurrences starting 05/05/2024 until 05/05/2025 ProMSafetySkills SystemComment on above:1 Occurrences starting 05/05/2024 until 05/05/2025Strep B screenStrep B screen Microbiology Routine care, third trimester 12/03/2024 3:07 PM EDTProMedica Work Phone: End: 33-45-8043Rgxnrvoq Total(Unknown Syphilis Status)Syphilis Total(Unknown Syphilis Status) Lab Routine First trimester 1 Occurrences starting 05/05/2024 until 05/05/2025[employer]on[employer] SystemComment on above:1 Occurrences starting 05/05/2024 until 05/05/2025 End: 23-04-0254Behxcqe profile includes TSH ED1Bfbjkxj profile includes TSH FT4 Lab Routine related fatigue in second trimester 1 Occurrences starting 09/18/2024 until 09/18/2025[employer] Work Phone: Comment on above:1 Occurrences starting 09/18/2024 until 09/18/2025Thyroid profile includes TSH NC5Qzjtbln profile includes TSH FT4 Lab Routine related fatigue in second trimester 09/18/2024 1:43 PM [employer] End: 12-66-1890Xrlbbaq profile includes TSH LB1Evbcwuj profile includes TSH FT4 Lab Routine Subclinical hypothyroidism every 4 weeks for 6 Occurrences starting 09/29/2024 until 09/29/2025, 1 completedECOtality Work Phone: comment on above:every 4 weeks for 6 Occurrences starting 09/29/2024 until 09/29/2025, 1 completed End: 14-72-0020Tozchluyy pallidum IgG+IgM Ab [Presence] in Serum by Immunoassay Syphilis Total(Unknown Syphilis Status) Lab Routine care, second trimester 1 Occurrences starting 09/18/2024 until 09/18/2025[facility] HospitalComment on above:1 Occurrences starting 09/18/2024 until 09/18/2025 Treponema pallidum IgG+IgM Ab [Presence] in Serum by ImmunoassaySyphilis Total(Unknown Syphilis Status) Lab Routine care, second trimester 09/18/2024 1:43PM [facility] End: 80-75-8505Jsml and screenType and screen Blood Bank Routine First trimester 1 Occurrences starting 05/05/2024 until 05/05/2025[facility] [facility] HospitalComment on above:1 Occurrences starting 05/05/2024 until 05/05/2025 End: 73-52-7945EgewmgjvvwAvnygqscvz Lab Routine First trimester 1 Occurrences starting 05/05/2024 until 05/05/2025[facility] [facility] HospitalComment on above:1 Occurrences starting 05/05/2024 until 05/05/2025Urogenital Ureaplasma and Mycoplasma Species by PCR: UrineUrogenital Ureaplasma and Mycoplasma Species by PCR: Urine Lab Routine Screening for STD (sexually transmitted disease) 07/29/2024 2:26 PM [employer] Work Phone: Urogenital Ureaplasma and Mycoplasma Species by PCR: UrineUrogenital Ureaplasma and Mycoplasma Species by PCR: Urine Lab Routine 28 weeks gestation of 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 10/09/2024 10:21 AM [employer] Work Phone: Urogenital Ureaplasma and Mycoplasma Species by PCR: UrineUrogenital Ureaplasma and Mycoplasma Species by PCR: Urine Lab Routine 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 12/03/2024 4:13 PM [facility] End: 86-91-8917Ttmbtqxzr zoster antibody, IgGVaricella zoster antibody, IgG Lab Routine First trimester 1 Occurrences starting 05/05/2024 until 05/05/2025[facility]Comment [facility]:1 Occurrences starting 05/05/2024 until 05/05/2025 End: 30-37-3542Mtqpogm D 25 hydroxyVitamin D 25 hydroxy Lab Routine related fatigue in second trimester 1 Occurrences starting 09/18/2024 until 09/18/2025[facility] HospitalComment on above:1 Occurrences starting 09/18/2024 until 09/18/2025Vitamin D 25 hydroxyVitamin D 25 hydroxy Lab Routine related fatigue in second trimester 09/18/2024 1:43 PM [facility] Immunizations Immunization DateImmunizationNotesCare FtvjjdcgZxkeysik70-66-8666cmbqihbecp, tetanus toxoids and acellular pertussis vaccine, unspecified formulation Delicia Egan BASKET MACHINE OPERATOR-CNM Work Phone: [facility]10-30-2025measles, mumps and rubella virus vaccineSteplali Egan BASKET MACHINE OPERATOR-CNM Work Phone: [facility] HospitalTmvnjq31-45-0628dywnkxtjc zoster immune globulinSteplali Egan BASKET MACHINE OPERATOR-CNM Work Phone: [facility]10-09-2025RSV, bivalent, protein subunit RSVpreF, diluent reconstituted, 0.5 mL, Chin Nguyen BASKET MACHINE OPERATOR-AND DRYING SUPERVISOR [employer]OOKING [employer]ING Work Phone: [facility] HospitalOvsxub16-44-4207Dwgnqztzonui, In Clinic,; Translations: [Drug or medicament (substance)]Sanjuanita Nguyen BASKET MACHINE OPERATOR-AND DRYING SUPERVISOR [employer] Work Phone: [facility] Work Phone: [phone]ipad, mumps and rubella virus vaccineLisa Krotzer BASKET MACHINE OPERATOR-AND DRYING SUPERVISOR [employer] Work Phone: [facility]10-31-2019tetanus toxoid, reduced diphtheria toxoid, and acellular pertussis vaccine, adsorbedLisa Krotzer BASKET MACHINE OPERATOR-AND DRYING SUPERVISOR [employer] Work Phone: [facility]03-14-2008human papilloma virus vaccine, quadrivalentLisa Krotzer BASKET MACHINE OPERATOR-AND DRYING SUPERVISOR [employer]ING Work Phone: [facility] HospitalDkbsxj50-29-9992cybytdxkf B vaccine, unspecified formulationLisa Krotzer BASKET MACHINE OPERATOR-AND DRYING SUPERVISOR [employer]ING Work Phone: [facility] HospitalEqlhnc25-89-7901WIA-Qxqpklyclbb influenzae type b conjugate vaccineLisa Krotzer BASKET MACHINE OPERATOR-AND DRYING SUPERVISOR [employer]ING Work Phone: [facility]08-27-1996measles, mumps and rubella virus vaccineLisa Krotzer BASKET MACHINE OPERATOR-AND DRYING SUPERVISOR [employer] Work Phone: [facility] HospitalRxfyab97-01-4535zyevvtikh poliovirus vaccine, live, oralLisa Krotzer BASKET MACHINE OPERATOR-AND DRYING SUPERVISOR [employer] Work Phone: [facility] HospitalKvhoct53-33-4099LDQ-Pkrjbbwyape influenzae type b conjugate vaccineLisa Krotzer BASKET MACHINE OPERATOR-AND DRYING SUPERVISOR [employer]ING Work Phone: [facility] HospitalPzmxfb88-51-8191wqpmopolw B vaccine, unspecified formulationLisa Krotzer BASKET MACHINE OPERATOR-AND DRYING SUPERVISOR [employer] Work Phone: [facility] HospitalQonecw22-89-6040fhpkuzypg poliovirus vaccine, live, oralLisa Krotzer BASKET MACHINE OPERATOR-AND DRYING SUPERVISOR COOKING [employer]ING Work Phone: [facility] HospitalIdwzru34-82-8472GPD-Gzdzdoiosfp influenzae type b conjugate vaccineLisa Krotzer BASKET MACHINE OPERATOR-AND DRYING SUPERVISOR COOKING [employer]ING Work Phone: [facility] HospitalUfkjse31-61-3971rirkjkpdd B vaccine, unspecified formulationLisa Krotzer BASKET MACHINE OPERATOR-AND DRYING SUPERVISOR COOKING [employer]ING Work Phone: [facility] HospitalRjpand70-73-7400rstwrvtet poliovirus vaccine, live, oralLisa Krotzer BASKET MACHINE OPERATOR-AND DRYING SUPERVISOR COOKING CASING Work Phone: [facility] Rrjgye36-29-2651rrgcpgsbf B vaccine, unspecified formulationLisa Wendy BASKET MACHINE OPERATOR-AND DRYING SUPERVISOR [employer] Work Phone: [facility] Payers DatePayer CategoryPayerPolicy ID2024Self-pay2024Medicaid (Managed Care)[employer] [employer] [id number] 2023MedicaidMEDICAID [place] [id number] [id number] 2023Medicaid [id number] Private Health Sbjbpnzku39-03-8330[facility] [id number] 1.2.840.078559.1.13.239.2.7.3.147[id number] 2.16.840.1.360077.3.57[id number] 2.16.840.1.997245.3.57[id number] 2.16.840.1.929476.3.57[id number] 2.16840.1.537400.3.57[id number] 2.16.840.1.976149.3.57[id number] 2.840.1.951475.3.57[id number] 2.840.1.374526.3.57[id number] 2.840.1.671496.3.57[id number] 2.0.1.054984.3.57[id number] 2.840.1.606684.3.579.2.25[id number] 2.0.1.025764.3.579.[id number] 2.16840.1.147095.3.57[id number] 2.840.1.948328.3.57[id number] 2.16840.1.329550.3.57[id number] 2.840.1.091880.3.57[id number] 2.16840.1.036711.3.57[id number] 2.840.1.201833.3.57[id number] 2.840.1.488458.3.579.[id number] 2.840.1.699685.3.57[id number] 2..1.888603.3.579.[id number] 2..1.942366.3.579.[id number] 2..1.499528.3.57[id number] 2.0.1.572693.3.57[id number] 2..1.293148.3.57[id number] 2..1.774262.3.57[id number] 2..1.277520.3.57[id number] 2.0.1.012764.3.579.2.733545-65-2816Xmbiwey70069927 2.840.1.209090.3.579.2.259242-82-4458Nmjvxop403604101 2.840.1.441407.3.57[id number] 2.16.840.1.530825.3.579.2.787532-74-2468Ypgkrdq761344946 2.16840.1.970036.3.579.2.737860-22-7817Cjnhega091437642 2.16840.1.252565.3.579.[id number] 2.840.1.907763.3.57[id number] 2.840.1.885364.3.579.2.[id number] 2.840.1.925898.3.57[id number] 2.840.1.231857.3.579.2.673536-45-0525Tnbxoqd940720117 2.840.1.044064.3.57[id number] 2.840.1.921729.3.579.2.3[id number] 2.840.1.627190.3.579.2.066309-77-6439Wemzdye862226049 2.840.1.996982.3.579.2.593025-64-9408Dtwydjz201384589 2.840.1.481262.3.579.2.273052-73-5829Srypeto534333912 2.840.1.510607.3.579.2.507961-20-1571Ryiezla456794938 2.840.1.573343.3.579.2.1[id number] 2.840.1.867823.3.579.2.568644-47-3973Uvlmnye203410741 2.16.840.1.785769.3.579.[id number] 2.16.840.1.212444.3.579.2.[id number] 2.16.840.1.247572.3.579.2.1286Department of Defense ( and others) [facility] Fed-[id number] 2.16.840.1.013183.3.579.2.531 Social History DateTypeDetailFacilityStart: 70-34-4353Mzkocwt smoking status NHISFormer smoker [employer] Phone: start: 06-08-2020 End: 92-44-9070Fscucds use and exposureNever usedAppnomic Systems Phone: start: 46-17-0815Ycfxxzj intakeCurrent drinker of alcohol (finding)[employer] Phone: start: 32-15-9391Fckknef CommentoccasionalAppn[employer] Systems Phone: start: 81-98-5228Uma Assigned At BirthNot on [facility] centerApp[facility] Phone: start: 08-28-2023 End: 14-28-5335Ucdrlcw smoking status NHISNever smoked tobaccoNOMS Healthcare Start: 35-33-4236Rxzpuxt use and exposureUser of smokeless tobaccoNOMS HealthcareStart: 12-12-2023 End: 55-83-4963Xuvoczk of Social functionNOMS HealthcareStart: 12-12-2023 End: 00-81-0088Pyvcnqx use panelNOMS HealthcareStart: 28-30-7201Nus [facility] 07-23-2021 End: 56-96-9733Jbzapnqtx beverage intakeEx-drinker (finding)[facility] HospitalChildcareUnknowInova Children's Hospitaltart: 98-16-0608HirGaivan (finding)[facility] Hospitaltart: 59-83-6664Cmshhn identityIdentifies as female gender (finding)[facility] Hospitaltart: 84-10-4837Tzwbxe orientationChoose not to discloseAtrium Health Pineville Rehabilitation Hospitaltart: 04-08-2024 PregnancyC[facility] Shriners HospitalHow often do you have a drink containing alcohol?NeverCinc[facility] Shriners HospitalHow hard is it for you to pay for the very basics like food, housing, medical care, and heatingNot very hardCincinnati Shriners HospitalNEGATED: Highlighted rowStart: NINFHistory of tobacco usePassive smokerC[facility] Shriners Hospital Functional Status GspfDsvuqocdccNiawoqHgkibqao45-79-2729Ucbhr score [AUDIT-C]0 12/31/2024 3:55 PM EST Fozia Briscoe [facility]10-17-2025Total score [AUDIT-C]0 12/11/2024 11:16 AM EDT Larissa Fallon [facility] Clinical Notes 04-02-2022 to 12-31-2024 Note Date & RrueAtlyKdtydpau87-71-4080 Miscellaneous Notes* Telephone Encounter - Shani Millan - 12/31/2024 4:56 PM EST Contract: [address] Hahn needs orders to get imaging on area to determine if she has hernia * Telephone Encounter - Shani Millan - 12/31/2024 4:56 PM EST Contract: 129 Called Tiffany Lee and relayed info for patient documented in this encounterCinc[facility] Hospital11-06-2025 Telephone encounter Note* Telephone Encounter - Shani Millan - 12/31/2024 4:56 PM EST Contract: [address] Hahn needs orders to get imaging on area to determine if she has hernia [facility]11-06-2025 Telephone encounter Note* Telephone Encounter - Shani Millan - 12/31/2024 4:56 PM EST Contract: 129 Called Tiffany Lee and relayed info for patient [facility]11-06-2025 History of Present illness Narrative* Karmen Hahn, - 12/31/2024 3:00 PM EST Patient presents [...] her incision site or vaginally. Subjective Delicia Shaw is a 29 y.o. female who presents [...] and pain Objective BP 134/86 Temp 36.8 C (98.2 F) Ht 165.1 cm (5' 5 ) Wt 65.3 kg (144 lb) LMP (LMP Unknown) Yes BMI 23.96 kg/m General: alert, appears stated age, cooperative, and [...] is feeling flushed or chilled. Temperature of 100.4 F or higher is a fever if this occursshe needs to call or come in. Patient reports that she is going to go to [facility] as that is where Dr. Segura works, and he did perform her surgery. We discussed that there is a physician available at [facility] as well. Patient feels more comfortable going to [place] as she lives there and that is closest to her home. documented in this encounterCincinnati Shriners Hospital11-02-2025 Plan of care note * Plan of Care - Sabrina Lomeli RN - 12/27/2024 1:37 PM EST Problem: Pain Goal: Patient goal is pain score less than 4, able to rest, and participant in treatment plan as appropriate Description: INTERVENTIONS: 1. Encourage patient or legal primary care sales representative to report early pain and ask [...] per policy 9. Teach patient or legal primary care sales representative interventions for comforting Outcome: Completed Note: [...] at the bedside 7. Instruct patient/ patient primary care sales representative about use of safety devices 8. Include patient/ patient primary care sales representative in decisions related to safety Outcome: [...] hygiene technique. 7. Identify and instruct patient/patient primary care sales representative in use of appropriate isolation precautionsfor identified infection/symptoms. 8. Provide and discuss with patient/patient primary care sales representative on educational MDRO sheet. 9. Encourage and monitor nutritional status daily and consult patrol driver if indicated. 10. Implement neutropenic guidelines as needed. Outcome: Completed Note: Evaluation of progress towards goal: Patient afebrile at this time, patient VS WNL. Pt assessed and monitored for signs and symptoms of infection, lab and diagnostic results monitored as needed, administer medications as needed. Hand hygiene completed. Continue to monitor. Problem: Knowledge Deficit Goal: Patient/patient primary care sales representative demonstrates understanding of disease process, treatment [...] supplement as ordered 13. Collaborate with clinical patrol driver 14. Include patient/ patient's primary care sales representative in decisions related to nutrition Outcome: [...] FUNDUS REMAINED FIRM AND MIDLINE Additional Comments: [facility]11-02-2025 Miscellaneous Notes* Plan of Care - Sabrina Lomeli RN - 12/27/2024 1:37 PM EST Problem: Pain Goal: Patient goal is pain score less than 4, able to rest, and participant in treatment plan as appropriate Description: INTERVENTIONS: 1. Encourage patient or legal primary care sales representative to report early pain and ask [...] per policy 9. Teach patient or legal primary care sales representative interventions for comforting Outcome: Completed Note: [...] at the bedside 7. Instruct patient/ patient primary care sales representative about use of safety devices 8. Include patient/ patient primary care sales representative in decisions related to safety Outcome: [...] hygiene technique. 7. Identify and instruct patient/patient primary care sales representative in use of appropriate isolation precautionsfor identified infection/symptoms. 8. Provide and discuss with patient/patient primary care sales representative on educational MDRO sheet. 9. Encourage and monitor nutritional status daily and consult patrol driver if indicated. 10. Implement neutropenic guidelines as needed. Outcome: Completed Note: Evaluation of progress towards goal: Patient afebrile at this time, patient VS WNL. Pt assessed and monitored for signs and symptoms of infection, lab and diagnostic results monitored as needed, administer medications as needed. Hand hygiene completed. Continue to monitor. Problem: Knowledge Deficit Goal: Patient/patient primary care sales representative demonstrates understanding of disease process, treatment [...] supplement as ordered 13. Collaborate with clinical patrol driver 14. Include patient/ patient's primary care sales representative in decisions related to nutrition Outcome: [...] Description: INTERVENTIONS: 1. Encourage patient or legal primary care sales representative to report early pain and ask [...] per policy 9. Teach patient or legal primary care sales representative interventions for comforting Outcome: Progressing Note: [...] at the bedside 7. Instruct patient/ patient primary care sales representative about use of safety devices 8. Include patient/ patient primary care sales representative in decisions related to safety Outcome: [...] hygiene technique. 7. Identify and instruct patient/patient primary care sales representative in use of appropriate isolation precautionsfor identified infection/symptoms. 8. Provide and discuss with patient/patient primary care sales representative on educational MDRO sheet. 9. Encourage and monitor nutritional status daily and consult patrol driver if indicated. 10. Implement neutropenic guidelines as needed. Outcome: Progressing Note: Evaluation of progress towards goal: Patient afebrile at this time, patient VS WNL. Pt assessed and monitored for signs and symptoms of infection, lab and diagnostic results monitored as needed, administer medications as needed. Hand hygiene completed. Continue to monitor. Problem: Knowledge Deficit Goal: Patient/patient primary care sales representative demonstrates understanding of disease process, treatment [...] supplement as ordered 13. Collaborate with clinical patrol driver 14. Include patient/ patient's primary care sales representative in decisions related to nutrition Outcome: [...] Description: INTERVENTIONS: 1. Encourage patient or legal primary care sales representative to report early pain and ask [...] per policy 9. Teach patient or legal primary care sales representative interventions for comforting Outcome: Progressing Note: [...] at the bedside 7. Instruct patient/ patient primary care sales representative about use of safety devices 8. Include patient/ patient primary care sales representative in decisions related to safety Outcome: [...] hygiene technique. 7. Identify and instruct patient/patient primary care sales representative in use of appropriate isolation precautionsfor identified infection/symptoms. 8. Provide and discuss with patient/patient primary care sales representative on educational MDRO sheet. 9. Encourage and monitor nutritional status daily and consult patrol driver if indicated. 10. Implement neutropenic guidelines as needed. Outcome: Progressing Note: Evaluation of progress towards goal: Patient afebrile at this time, patient VS WNL. Pt assessed and monitored for signs and symptoms of infection, lab and diagnostic results monitored as needed, administer medications as needed. Hand hygiene completed. Continue to monitor. Problem: Knowledge Deficit Goal: Patient/patient primary care sales representative demonstrates understanding of disease process, treatment [...] supplement as ordered 13. Collaborate with clinical patrol driver 14. Include patient/ patient's primary care sales representative in decisions related to nutrition Outcome: [...] Description: INTERVENTIONS: 1. Encourage patient or legal primary care sales representative to report early pain and ask [...] per policy 9. Teach patient or legal primary care sales representative interventions for comforting Outcome: Progressing Note: [...] at the bedside 7. Instruct patient/ patient primary care sales representative about use of safety devices 8. Include patient/ patient primary care sales representative in decisions related to safety Outcome: [...] hygiene technique. 7. Identify and instruct patient/patient primary care sales representative in use of appropriate isolation precautionsfor identified infection/symptoms. 8. Provide and discuss with patient/patient primary care sales representative on educational MDRO sheet. 9. Encourage and monitor nutritional status daily and consult patrol driver if indicated. 10. Implement neutropenic guidelines as needed. Outcome: Progressing Note: Evaluation of progress towards goal: Patient afebrile at this time, patient VS WNL. Pt assessed and monitored for signs and symptoms of infection, lab and diagnostic results monitored as needed, administer medications as needed. Hand hygiene completed. Continue to monitor. Problem: Knowledge Deficit Goal: Patient/patient primary care sales representative demonstrates understanding of disease process, treatment [...] in room ab brianna, ambulatory to bathroom, yara care preformed and yara pads changed. Goal: Patient's nutritional intake is [...] supplement as ordered 13. Collaborate with clinical patrol driver 14. Include patient/ patient's primary care sales representative in decisions related to nutrition Outcome: [...] Description: INTERVENTIONS: 1. Encourage patient or legal primary care sales representative to report early pain and ask [...] per policy 9. Teach patient or legal primary care sales representative interventions for comforting Outcome: Progressing Note: [...] at the bedside 7. Instruct patient/ patient primary care sales representative about use of safety devices 8. Include patient/ patient primary care sales representative in decisions related to safety Outcome: [...] hygiene technique. 7. Identify and instruct patient/patient primary care sales representative in use of appropriate isolation precautionsfor identified infection/symptoms. 8. Provide and discuss with patient/patient primary care sales representative on educational MDRO sheet. 9. Encourage and monitor nutritional status daily and consult patrol driver if indicated. 10. Implement neutropenic guidelines as needed. Outcome: Progressing Note: Evaluation of progress towards goal: NO S/S OF INFECTION. EDUCATION ABOUT INCISIONAL CARE PROVIDED Problem: Knowledge Deficit Goal: Patient/patient primary care sales representative demonstrates understanding of disease process, treatment [...] Description: INTERVENTIONS: 1. Encourage patient or legal primary care sales representative to report early pain and ask [...] per policy 9. Teach patient or legal primary care sales representative interventions for comforting Outcome: Progressing Note: [...] at the bedside 7. Instruct patient/ patient primary care sales representative about use of safety devices 8. Include patient/ patient primary care sales representative in decisions related to safety Outcome: [...] hygiene technique. 7. Identify and instruct patient/patient primary care sales representative in use of appropriate isolation precautionsfor identified infection/symptoms. 8. Provide and discuss with patient/patient primary care sales representative on educational MDRO sheet. 9. Encourage and monitor nutritional status daily and consult patrol driver if indicated. 10. Implement neutropenic guidelines as needed. Outcome: Progressing Note: Evaluation of progress towards goal: NO S/S OF INFECTION NOTED. GOOD HAND HYGIENE MAINTAINED Problem: Knowledge Deficit Goal: Patient/patient primary care sales representative demonstrates understanding of disease process, treatment [...] Description: INTERVENTIONS: 1. Encourage patient or legal primary care sales representative to report early pain and ask [...] per policy 9. Teach patient or legal primary care sales representative interventions for comforting Outcome: Progressing Note: [...] at the bedside 7. Instruct patient/ patient primary care sales representative about use of safety devices 8. Include patient/ patient primary care sales representative in decisions related to safety Outcome: [...] hygiene technique. 7. Identify and instruct patient/patient primary care sales representative in use of appropriate isolation precautionsfor identified infection/symptoms. 8. Provide and discuss with patient/patient primary care sales representative on educational MDRO sheet. 9. Encourage and monitor nutritional status daily and consult patrol driver if indicated. 10. Implement neutropenic guidelines as needed. Outcome: Progressing Note: Evaluation of progress towards goal: Patient is free from signs and symptoms of infection. Problem: Knowledge Deficit Goal: Patient/patient primary care sales representative demonstrates understanding of disease process, treatment [...] as tachysystole. Additional Comments: [facility] Discharge instructions* Discharge Instructions* Sabrina Lomeli RN - 12/27/2024 10:30 AM EST Discharge Instructions Vaginal Bleeding Vaginal drainage, lochia , will last 2-3 weeks after your baby was born Use the yara bottle filled with warm water each time you use the bathroom, pat dry. Continue this until your drainage stops. Always wipe from front to back after you urinate or have a bowel movement Change your sanitary pad every 2-4 hours Notify your doctor/CNM if you experience any of the following: Clots larger than a plum If you are saturating a yara pad greater than one pad an hour [...] comfort you may: Use a sitz bath Yara bottle Dermoplast (use each time after yara care) Tucks (use each time after yara care) Tucks and Dermoplast spray may also help with hemorrhoid discomfort (use each time after yara care) Sexual [place] No tampons, douching, or sexual intercourse until [...] start Kegel exercises now documented in this [facility] course Narrative* ZEUS Harrison - 12/27/2024 9:22 AM EST Inpatient Discharge Summary BRIEF OVERVIEW Admitting Provider: ZEUS Murillo Attending Provider: Delicia Egan APRN* Admission Date: 12/23/2024 Discharge Date: 12/27/24 [...] Data Information for the patient's : Trish Shaw [[id number]] male 3.52 kg Discharge with mother Discharge [...] Your Medications These medications were sent to [facility]/pharmacy #[id number] [place] [address] acetaminophen 500 mg tablet docusate sodium 100 [...] ZEUS Harrison 12/27/24 0924 documented in this encounterC[facility] History of Present illness Narrative* ZEUS Harrison - 12/27/2024 9:12 AM EST Post operative Day 3 SUBJECTIVE: Delicia Shaw is a 29 y.o. who delivered via [...] EXAM: BP 100/51 Pulse 81 Temp 36.7 C (98 F) (Oral) Resp 16 LMP (LMP Unknown) Yes [...] AM ZEUS Harrison 12/27/24 0916 * ZEUS New - 12/26/2024 9:24 AM EDT .Delicia Mireya Shaw 1995 39w1d Vitals: 12/26/24 0158 BP: 133/84 Pulse: 93 Resp: 18 Temp: 36.7 C (98 F) Allergies Allergen Reactions Zithromax [Azithromycin] Itching and [...] incision check with OB provider - ZEUS NEW 12/26/24 9:25 AM ZEUS New 12/26/24 0926 * ZEUS Cash - 12/25/2024 8:01 AM EDT Note Delicia Shaw is a 29 y.o. female post day [...] 1,000 mg, 1,000 mg, oral, Q8H, Delicia Egan APRN-CNM, 1,000 mg at 12/25/24 0107 bisacodyL (DULCOLAX) suppository 10 mg, 10 mg, rectal, Once PRN, Delicia Egan APRN-CNRebecca carboprost (HEMABATE) injection 250 mcg, 250 mcg, intramuscular, Once PRN, Delicia Egan APRN-CNRebecca carboprost (HEMABATE) injection 250 mcg, 250 mcg, intramuscular, Once PRN, Delicia Egan APRN-CNM diphenhydrAMINE (BENADRYL) injection 25 mg, 25 mg, intravenous, Q6H PRN, David Guadalupe DO diphth,pertus(acell),tetanus (BOOSTRIX) injection 0.5 mL, 0.5 mL, intramuscular, During hospitalization, Delicia Egan APRN-JO-ANN docusate sodium (COLACE) capsule 100 mg, 100 mg, oral, BID, Delicia Egan APRN-CNM, 100 mg at1 2336 hydrocortisone (ANUSOL-HC) 2.5 % rectal cream 1 Application, 1 Application, rectal, PRN, Delicia Egan APRN-JO-ANN ketorolac (TORADOL) injection 30 mg, 30 mg, intravenous, Q8H, 30 mg at 12/25/24 0528 FOLLOWED BY [START ON 12/26/2024] ibuprofen (MOTRIN) tablet 800 mg, 800 mg, oral, Q8H, Delicia Egan APRN-CNM lactated ringers infusion, 999 mL/hr, intravenous, Continuous PRN, Delicia Egan APRN-CNRebecca oxytocin (PITOCIN) infusion 30 units/500 mL in lactated ringers (0.06 units/mL premix), 42 marciano-units/min, intravenous, Continuous PRN, Stopped at 12/25/24 0306 AND lactated ringers infusion, 83mL/hr, intravenous, Continuous PRN, Delicia Deb Richi, BASKET MACHINE OPERATOR-CNM, Stopped at 12/25/24 0307 lactated ringers infusion, 125 mL/hr, intravenous, Continuous, Delicia Egan, BASKET MACHINE OPERATOR-CNM, Pausedat 12/25/24 0433 lactated ringers infusion, 999 mL/hr, intravenous, Continuous PRN, Delicialali Egan, BASKET MACHINE OPERATOR-CNM lactated ringers infusion, 999 mL/hr, intravenous, Continuous PRN, Delicialali Egan, BASKET MACHINE OPERATOR-CNM measles, mumps and rubella vaccine (M-M-R II) injection 0.5 mL, 0.5 mL, subcutaneous, During hospitalization, Delicia Egan, BASKET MACHINE OPERATOR-CNM methylergonovine (METHERGINE) injection 200 mcg, 200 mcg, intramuscular, Once PRN, Delicia Egan, BASKET MACHINE OPERATOR-CNM methylergonovine (METHERGINE) injection 200 mcg, 200 mcg, intramuscular, Once PRN, Delicia Egan, BASKET MACHINE OPERATOR-CNM miSOPROStoL (CYTOTEC) tablet 800 mcg, 800 mcg, sublingual, Once PRN, Delicia Egan, BASKET MACHINE OPERATOR-CNM miSOPROStoL (CYTOTEC) tablet 800 mcg, 800 mcg, sublingual, Once PRN, Delicia Egan, BASKET MACHINE OPERATOR-CNM modified lanolin (LANSINOH) 100 % cream cream 1 Application, 1 Application, topical, PRN, Ev Egan, BASKET MACHINE OPERATOR-CNM, 1 Application at 12/24/24 2337 nalbuphine (NUBAIN) injection 2 mg, 2 mg, intravenous, Q3H PRN, David Guadalupe, DO naloxone (NARCAN) injection 0.1 mg, 0.1 mg, intravenous, PRN, David Guadalupe, DO ondansetron (PF) (ZOFRAN) injection 4 mg, 4 mg, intravenous, Q4H PRN, Delicia Egan BASKET MACHINE OPERATOR-CNM,4 mg at 12/25/24 0039 oxyCODONE (ROXICODONE) immediate release tablet 10 mg, 10 mg, oral, Q4H PRN, ZEUS Burton, 10 mg at 12/25/24 0751 oxyCODONE (ROXICODONE) immediate release tablet 5 mg, 5 mg, oral, Q4H PRN, ZEUS Burton, 5 mg at 12/25/24 0040 oxytocin (PITOCIN) bolus from bag solution 10 Units, 10 Units, intravenous, Once PRN, ZEUS Burton oxytocin (PITOCIN) injection 10 Units, 10 Units, intramuscular, Once PRN, Delicia Egan APRN-JO-ANN oxytocin (PITOCIN) injection 10 Units, 10 Units, intramuscular, Once PRN, ZEUS Burton PNV,calcium 90-[id number]-[id number] acid ( PLUS) 27 mg iron- 1 [...] 1,000 mg, intravenous, Q30 Min PRN, Joanie Sommre APRN-JO-ANN tranexamic acid (CYKLOKAPRON) injection 1,000 mg, 1,000 mg, intravenous, Q30 Min PRN, ZEUS Burton tranexamic acid (CYKLOKAPRON) injection 1,000 mg, 1,000 mg, intravenous, Q30 Min PRN, ZEUS Burton varicella virus vaccine live (VARIVAX) injection 0.5 mL, 0.5 mL, subcutaneous, During hospitalization, Delicia Egan, BASKET MACHINE OPERATOR-CNM Recent Results (from the past 24 hours) [...] Exam: BP 113/59 Pulse 64 Temp 36.7 C (98 F) (Oral) Resp 16 LMP (LMP Unknown) Yes [...] and reflexes Throughout O[facility] report reviewed at [place]. Assessment S/P PLTCS Positive for Ureaplasm urealyticum HX anemia VSS Day :1 routine care DC IV fluids Ambulation, incentive spirometry and pain management reviewed with patient. - ZEUS CASH 12/25/24 8:02 AM ZEUS Cash 12/25/2408 * ZEUS Burton - 12/24/2024 10:13 PM EDT triage assistant Section for non-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 Surgeon: Dr. [...] 118/56 Pulse: 83 Resp: 16 Temp: 36.7 C (98.1 F) Assessment IUP @ 39w1d EIOL S/P Cervidil [...] 119/62 Pulse: 99 Resp: 16 Temp: 37.2 C (98.9 F) Assessment IUP @ 39w1d EIOL S/P Cervidil [...] AM ZEUS Burton 12/24/24 0801 * ZEUS New - 12/23/2024 7:07 PM EDT Subjective: Pt reports feeling crampy. Patient declines the need for IV pain medication or epiduralat this time. Feeling movement. Supportive family remains at bedside. Pt reports reaction after taking oral Zithromax in July. Developed itchy rash of neck, chest and abdomen. Objective: Vital signs: Blood pressure 125/81, pulse 82, temperature 36.6 C (97.8 F), temperature source Oral, resp. rate 16. FHT: [...] choice. Encourage position changes. Reassess PRN ZEUS NEW APRN-CNM 12/23/241935 ZEUS New 12/23/241944 documented in this encounterC[facility] Plan of care note * Plan of Care - Ambar Armstrong RN - 12/26/2024 11:40 PM EDT Problem: Pain Goal: Patient goal is pain score less than 4, able to rest, and participant in treatment plan as appropriate Description: INTERVENTIONS: 1. Encourage patient or legal primary care sales representative to report early pain and ask [...] per policy 9. Teach patient or legal primary care sales representative interventions for comforting Outcome: Progressing Note: [...] at the bedside 7. Instruct patient/ patient primary care sales representative about use of safety devices 8. Include patient/ patient primary care sales representative in decisions related to safety Outcome: [...] hygiene technique. 7. Identify and instruct patient/patient primary care sales representative in use of appropriate isolation precautionsfor identified infection/symptoms. 8. Provide and discuss with patient/patient primary care sales representative on educational MDRO sheet. 9. Encourage and monitor nutritional status daily and consult patrol driver if indicated. 10. Implement neutropenic guidelines as needed. Outcome: Progressing Note: Evaluation of progress towards goal: Patient afebrile at this time, patient VS WNL. Pt assessed and monitored for signs and symptoms of infection, lab and diagnostic results monitored as needed, administer medications as needed. Hand hygiene completed. Continue to monitor. Problem: Knowledge Deficit Goal: Patient/patient primary care sales representative demonstrates understanding of disease process, treatment [...] supplement as ordered 13. Collaborate with clinical patrol driver 14. Include patient/ patient's primary care sales representative in decisions related to nutrition Outcome: [...] needed, will continue to monitor. Additional Comments: [facility] Plan of care note* Plan of Care - Sabrina Lomeli RN - 12/26/2024 1:19 PM EDT Problem: Pain Goal: Patient goal is pain score less than 4, able to rest, and participant in treatment plan as appropriate Description: INTERVENTIONS: 1. Encourage patient or legal primary care sales representative to report early pain and ask [...] per policy 9. Teach patient or legal primary care sales representative interventions for comforting Outcome: Progressing Note: [...] at the bedside 7. Instruct patient/ patient primary care sales representative about use of safety devices 8. Include patient/ patient primary care sales representative in decisions related to safety Outcome: [...] hygiene technique. 7. Identify and instruct patient/patient primary care sales representative in use of appropriate isolation precautionsfor identified infection/symptoms. 8. Provide and discuss with patient/patient primary care sales representative on educational MDRO sheet. 9. Encourage and monitor nutritional status daily and consult patrol driver if indicated. 10. Implement neutropenic guidelines as needed. Outcome: Progressing Note: Evaluation of progress towards goal: Patient afebrile at this time, patient VS WNL. Pt assessed and monitored for signs and symptoms of infection, lab and diagnostic results monitored as needed, administer medications as needed. Hand hygiene completed. Continue to monitor. Problem: Knowledge Deficit Goal: Patient/patient primary care sales representative demonstrates understanding of disease process, treatment [...] supplement as ordered 13. Collaborate with clinical patrol driver 14. Include patient/ patient's primary care sales representative in decisions related to nutrition Outcome: [...] needed, will continue to monitor. Additional Comments: [facility] Plan of care note* Plan of Care - Ambar Armstrong RN - 12/26/2024 1:17 AM EDT Problem: Pain Goal: Patient goal is pain score less than 4, able to rest, and participant in treatment plan as appropriate Description: INTERVENTIONS: 1. Encourage patient or legal primary care sales representative to report early pain and ask [...] per policy 9. Teach patient or legal primary care sales representative interventions for comforting Outcome: Progressing Note: [...] at the bedside 7. Instruct patient/ patient primary care sales representative about use of safety devices 8. Include patient/ patient primary care sales representative in decisions related to safety Outcome: [...] hygiene technique. 7. Identify and instruct patient/patient primary care sales representative in use of appropriate isolation precautionsfor identified infection/symptoms. 8. Provide and discuss with patient/patient primary care sales representative on educational MDRO sheet. 9. Encourage and monitor nutritional status daily and consult patrol driver if indicated. 10. Implement neutropenic guidelines as needed. Outcome: Progressing Note: Evaluation of progress towards goal: Patient afebrile at this time, patient VS WNL. Pt assessed and monitored for signs and symptoms of infection, lab and diagnostic results monitored as needed, administer medications as needed. Hand hygiene completed. Continue to monitor. Problem: Knowledge Deficit Goal: Patient/patient primary care sales representative demonstrates understanding of disease process, treatment [...] in room ab brianna, ambulatory to bathroom, yara care preformed and yara pads changed. Goal: Patient's nutritional intake is [...] supplement as ordered 13. Collaborate with clinical patrol driver 14. Include patient/ patient's primary care sales representative in decisions related to nutrition Outcome: [...] needed, will continue to monitor. Additional Comments: [facility] Plan of care note* Plan of Care - Mini Munoz RN - 12/25/2024 2:55 PM EDT Problem: Pain Goal: Patient goal is pain score less than 4, able to rest, and participant in treatment plan as appropriate Description: INTERVENTIONS: 1. Encourage patient or legal primary care sales representative to report early pain and ask [...] per policy 9. Teach patient or legal primary care sales representative interventions for comforting Outcome: Progressing Note: [...] at the bedside 7. Instruct patient/ patient primary care sales representative about use of safety devices 8. Include patient/ patient primary care sales representative in decisions related to safety Outcome: [...] hygiene technique. 7. Identify and instruct patient/patient primary care sales representative in use of appropriate isolation precautionsfor identified infection/symptoms. 8. Provide and discuss with patient/patient primary care sales representative on educational MDRO sheet. 9. Encourage and monitor nutritional status daily and consult patrol driver if indicated. 10. Implement neutropenic guidelines as needed. Outcome: Progressing Note: Evaluation of progress towards goal: NO S/S OF INFECTION. EDUCATION ABOUT INCISIONAL CARE PROVIDED Problem: Knowledge Deficit Goal: Patient/patient primary care sales representative demonstrates understanding of disease process, treatment [...] progress towards goal: ONGOING PLANNING Additional Comments: [facility]10-31-2025 Plan of care note* Plan of Care - Miriam Alexandre RN - 12/25/2024 5:06 AM EDT Additional Comments: [facility] Plan of care note* Plan of Care - Mini Munoz RN - 12/24/2024 4:45 PM EDT Problem: Pain Goal: Patient goal is pain score less than 4, able to rest, and participant in treatment plan as appropriate Description: INTERVENTIONS: 1. Encourage patient or legal primary care sales representative to report early pain and ask [...] per policy 9. Teach patient or legal primary care sales representative interventions for comforting Outcome: Progressing Note: [...] at the bedside 7. Instruct patient/ patient primary care sales representative about use of safety devices 8. Include patient/ patient primary care sales representative in decisions related to safety Outcome: [...] hygiene technique. 7. Identify and instruct patient/patient primary care sales representative in use of appropriate isolation precautionsfor identified infection/symptoms. 8. Provide and discuss with patient/patient primary care sales representative on educational MDRO sheet. 9. Encourage and monitor nutritional status daily and consult patrol driver if indicated. 10. Implement neutropenic guidelines as needed. Outcome: Progressing Note: Evaluation of progress towards goal: NO S/S OF INFECTION NOTED. GOOD HAND HYGIENE MAINTAINED Problem: Knowledge Deficit Goal: Patient/patient primary care sales representative demonstrates understanding of disease process, treatment [...] NO INTOLERANCE NOTED TO PRESENT Additional Comments: [facility] Plan of care note* Plan of Care - Lola Armstrong RN - 12/24/2024 4:47 AM EDT Problem: Pain Goal: Patient goal is pain score less than 4, able to rest, and participant in treatment plan as appropriate Description: INTERVENTIONS: 1. Encourage patient or legal primary care sales representative to report early pain and ask [...] per policy 9. Teach patient or legal primary care sales representative interventions for comforting Outcome: Progressing Note: [...] at the bedside 7. Instruct patient/ patient primary care sales representative about use of safety devices 8. Include patient/ patient primary care sales representative in decisions related to safety Outcome: [...] hygiene technique. 7. Identify and instruct patient/patient primary care sales representative in use of appropriate isolation precautionsfor identified infection/symptoms. 8. Provide and discuss with patient/patient primary care sales representative on educational MDRO sheet. 9. Encourage and monitor nutritional status daily and consult patrol driver if indicated. 10. Implement neutropenic guidelines as needed. Outcome: Progressing Note: Evaluation of progress towards goal: Patient is free from signs and symptoms of infection. Problem: Knowledge Deficit Goal: Patient/patient primary care sales representative demonstrates understanding of disease process, treatment [...] FHR, as well as tachysystole. Additional Comments: [id number] History and physical note* Tiffany Lee APRN-JO-ANN - 12/23/2024 6:34 PM EDT Images from the original note were not included. LABOR AND DELIVERY HISTORY AND PHYSICAL/TRIAGE: CHIEF COMPLAINT: Chief Complaint Patient presents with Scheduled Induction Delicia Shaw is a 29 y.o. female with Estimated [...] 125/81 Pulse: 82 Resp: 16 Temp: 36.6 C (97.8 F) PHYSICAL EXAM: General: alert, appears stated age, [...] with the plan of care. - ZEUS NEW 12/23/24 6:36 PM ZEUS New 12/23/24 1849 [facility] History and physical note* ZEUS New - 12/23/2024 6:34 PM EDT Images from the original note were not included. LABOR AND DELIVERY HISTORY AND PHYSICAL/TRIAGE: CHIEF COMPLAINT: Chief Complaint Patient presents with Scheduled Induction Delicia Shaw is a 29 y.o. female with Estimated [...] 125/81 Pulse: 82 Resp: 16 Temp: 36.6 C (97.8 F) PHYSICAL EXAM: General: alert, appears stated age, [...] with the plan of care. - ZEUS NEW 12/23/24 6:36 PM ZEUS New 12/23/24 3158 documented in this [facility]10-26-2025 Miscellaneous Notes* Telephone Encounter - [facility] - 12/20/2024 5:44 PM EDT Contract: 129 Pt calling with severe back pain, pelvic pain pt is 38 weeks 4 days * Telephone Encounter - [facility] - 12/20/2024 5:44 PM EDT Called deputy felony clerk provider ZEUS New and connected her with patient. documented in this encounterC[facility] Telephone encounter Note* Telephone Encounter - [facility] - 12/20/2024 5:44 PM EDT Contract: 129 Pt calling with severe back pain, pelvic pain pt is 38 weeks 4 days [facility] Telephone encounter Note* Telephone Encounter - [facility] - 12/20/2024 5:44 PM EDT Called deputy felony clerk provider ZEUS New and connected her with patient. [facility] History of Present illness Narrative* Sanjuanita Nguyen APRN-MARCUS - 12/18/2024 10:45 AM EDT Routine OB [...] and delivery. 4. Discussed delayed cord clamping, [id number], early initiation of , rooming in. 5. Discussed current visitation guidelines in L & D. 6. Patient declines flu shot 7. Educational information given. 8. Questions answered. 9. Return 1 week. YUNG Chris 12/18/24 1127 documented in this encounterC[facility] History of Present illness Narrative* YUNG Chris - 12/11/2024 11:30 AM EDT Routine OB Visit 29 y.o. at 37w2d. Positive movement. No contractions, vaginal bleeding or leaking of fluid. Patient does not feel well today. She reports headaches, visual disturbances, cramping, and decreased movement. She denies vaginal bleeding or loss of fluid. Patient has a hx mycoplasma genitalium in July, VALE negative in September Upon recheck at 36 weeks, mycoplasma genitalium was negative but she was then positive for ureaplasma urealyticum. Discussed with Dr. Duncan who recommends azithromycin 500 mg IV every 24 hours in labor. 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 Reviewed signs of labor and reinforced movement counts. 2. Patient sent to triage today for headaches, visual disturbances and decreased movement. Eula in L&D notified. 3. GBS results reviewed (negative). Reviewed treatment recommendations for ureaplasma urealyticum in labor. 4. Discussed L&D visitation guidelines. 5. Growth ultrasound ordered today. 6. 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 Patient declines flu shot. Educational information given. 8. Questions answered. 9. Follow up 1 week. YUNG Chris 12/11/24 1210 documented in this encounterWashington [facility] HospitalAc[facility] Instructions* Patient Instructions* YUNG Chris - 12/11/2024 11:30 AM EDT The Centers for Disease Control and Prevention (CDC) recommends the following steps to help babies sleep safely and reduce the risk of sleep-related deaths, including SIDS: Place your baby on his or her back for all sleep times--naps and at night. Use a firm, flat (not at an angle or inclined) sleep surface, such as a mattress in a safety-approved crib covered only by a fitted sheet. Keep your baby s sleep area (for example, a crib or bassinet) in the same room where you sleep, ideally until your baby is at least 6 months old. Keep soft bedding such as blankets, pillows, bumper pads, and soft toys out of your baby s sleep area. Do not cover your baby s head or allow your baby to get too hot. Avoid using products that claim to reduce the risk of SIDS, such as wedges or positioners. Do not use home cardiorespiratory monitors as a strategy to reduce the risk of SIDS. For more information on how to create a safe sleep environment for your baby, please visit the CDC s website * Attachments The following attachments cannot be sent through Care Everywhere. * The Ninth Month (Austrian) documented in this encounterC[facility]10-[facility] History of Present illness Narrative* YUNG Chris - 12/03/2024 2:15 PM EDT Routine OB Visit 29 y.o. at 36w1d. No vaginal bleeding or loss of fluid. Some contractions. Good movement. Patient would like to be checked today. Patient wore a holter monitor last week and has to takethe device to cardiology for evaluation. 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 Reviewed signs of labor and movement. 2. Reviewed warning signs of , including s/s of preeclampsia. 3. GBS education/ collected. No Known Allergies 4. Educated on current visitation guidelines in [facility] [place]. 5. RSV vaccine given today. 6. Patient declined Tdap and the flu shot. 7. Educational information given. 8. Questions answered. 9. Return 1 week. YUNG Chris 12/03/24 1528 * Larissa Fallon MA - 12/03/2024 2:15 PM EDT Patient had trace amount of leukocytes in urine today. documented in this encounterC[facility]10-09-2025 Instructions* Patient Instructions* YUNG Chris - 12/03/2024 2:15 PM EDT Here is some information from the CDC about the RSV vaccine recommendations: https://www.cdc.gov/rsv/hcp/gvtsygq-mlmcopgn-llxiqdpi/-people.html * Attachments The following attachments cannot be sent through Care Everywhere. * Group B strep screening (Austrian) documented in this encounterCincinnati [facility]09-25-2025 History of Present illness Narrative* ZEUS New - 11/19/2024 2:30 PM EDT S: Delicia Shaw is a 29 y.o. at 34w1d 12/30/2024, by Ultrasound who presents for routine OB appointment. Today Delicia Shaw states that she has no new concerns. She reportspositive FM. She denies regular cramping, LOF or bleeding. She denies headache, chest pain or SOB. Taking PNV and MgOxide. Severe heartburn. History of macrosomal infant noted on problem list. Pt states first child weighed 7#8 at and did not have shoulder dystocia. O: BP 110/62 Wt 68.9 kg (151 lb 12.8 oz) LMP (LMP Unknown) BMI 25.26 kg/m See OB flowsheet A: 1. 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 Subclinical hypothyroidism 3. Anemia 4. Heartburn P: 1 More Venofer infusion left to go, Rx for Omeprazole sent Will be doing Holter monitor in November, also echocardiogram To follow with chair after delivery Flu vaccine: declined Tdap: declined Discussed Plan: Pain control: nitrous oxide, open to epidural Feeding: breast Plate Glass Installer Helper: Surya Romero Having boy, having circumcision Contraception: condoms Reviewed labor precautions, pre-e precautions and FKC. Questions answered and discussed dangers and warnings. Return to care in 2 weeks. Pt verbalizes understanding and agreeable to plan of care. ZEUS NEW APRN-CNM 11/19/24 1504 documented in this encounterCincinnati [facility]09-25-2025 Miscellaneous Notes* Telephone Encounter - Ana Malhotra RN - 11/19/2024 11:10 AM EDT Received call from [employer]. [employer] needs peer to peer for TTE. Tracking # [id number]. Hay Chopper called and spoke w/ Dr. Marquez. Unable to get approval. Wants to see Holter results prior to approval. Precert notified to have TTE rescheduled for 2 wks after holter- Spoke kathleen/ Vandana Kiser Pt called and updated documented in this encounterCincinnati [facility]09-25-2025 Telephone encounter Note* Telephone Encounter - Ana Malhotra RN - 11/19/2024 11:10 AM EDT Received call from Kanchan Evans. [employer] needs peer to peer for TTE. Tracking # [id number]. [employer] called and spoke w/ Dr. Marquez. Unable to get approval. Wants to see Holter results prior to approval. Precert notified to have TTE rescheduled for 2 wks after holter- Spoke yossi Kiser Pt called and updated [facility] History of Present illness Narrative* Emmett Wilkinson MD - 11/09/2024 9:00 AM EDT Delicia Shaw Date of visit: 11/09/2024 Date of : 1995 Age: 29 y.o. 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 30 tablet 4 PNV no.95/ferrous fum/folic ac ( ORAL) Take by mouth. No current facility-administered medications for this visit. 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 She is a 29-year-old female with a past medical history significant for syncope. She is currently and in her 2nd trimester. She describes to me episodes of syncope she states she at even had them prior to being .She describes feeling lightheaded and dizzy typically during the middle of the night when she gets up to urinate. She states she has had episodes when she has been on the commode and felt a re sensation lightheadedness dizziness and then passes out. She denies to me any prior cardiovascular workup.She does state she has palpitations from time to time usually once a day or once every other day. She describes the palpitations as a heart fluttering they usually last for few sec and then goes away. She denies any other symptoms that are referable to her heart. Past Medical History: Diagnosis Date Adult ADHD Anxiety Eczema No data recorded No data recorded No data recorded Past Surgical History: Procedure Laterality Date APPENDECTOMY 2023 Family History Problem Relation Age of Onset Lupus Mother Migraines Mother Lupus Sister Autism Neg Hx Developmental delay Neg Hx Clotting disorder Neg Hx Bleeding Disorder Neg Hx Congenital heart disease Neg Hx Sudden Neg Hx Social History Socioeconomic History Marital status: Single Spouse name: Not on file Number of children: Not on file Years of education: Not on file Highest education level: Not on file Occupational History Not on file Tobacco Use Smoking status: Never Passive exposure: Never Smokeless tobacco: Never Vaping Use Vaping status: Former Quit date: 12/27/2023 Substances: Nicotine Substance and Sexual Activity Alcohol use: Not Currently Drug use: Not Currently Types: Marijuana Sexual activity: Yes Partners: Male control/protection: None Other Topics Concern Caffeine Use Yes Social History Narrative Not on file Social Drivers of Health Financial Resource Strain: Patient Declined (10/15/2024) Overall Financial Resource Strain (CARDIA) Difficulty of Paying Living Expenses: Patient declined Food Insecurity: No Food Insecurity (11/09/2024) Hunger Screening Food Insecurity - Worry: Never True Food Insecurity - Inability: Never True Transportation Needs: Patient Declined (10/15/2024) PRAPARE - Transportation Lack of Transportation (Medical): Patient declined Lack of Transportation (Non-Medical): Patient declined Physical Activity: Not on file Stress: Not on file Social Connections: Not on file Interpersonal Safety: Not on file Housing Instability: Patient Declined (10/15/2024) Housing Instability Housing Instability: Patient Declined Review of Systems Review of Systems Constitutional: Positive for malaise/fatigue. HENT: Negative. Eyes: Negative. Respiratory: Positive for shortness of breath. Hematologic/Lymphatic: Bruises/bleeds easily. Skin: Negative. Musculoskeletal: Negative. Gastrointestinal: Negative. Neurological: Positive for dizziness, light-headedness and loss of balance. Psychiatric/Behavioral: Negative. Allergic/Immunologic: Negative. CARDIOVASCULAR: Please review HPI. Physical Examination General appearance: Alert, oriented and cooperative. In no acute distress. Skin: Warm and dry to touch. Head: Normocephalic, without obvious abnormality, atraumatic. Ears, Nose, Mouth, Throat: Throat clear without erythema or exudate. Dentition intact. Eyes: Conjunctivae unremarkable, EOM intact. Neck: No JVD, No carotid bruit. Neck supple, trachea midline. Respiratory: Clear to auscultation bilaterally, no use of accessory muscles. Cardiovascular: RRR with normal S1 and S2 with no murmurs. Gastrointestinal: Soft, non-tender. Bowel sounds normal. Musculoskeletal: No peripheral edema. Neurologic: Oriented to time, person and place, affect appropriate. No focal/major motor defects noted. Psychiatric: Appropriate mood, memory and judgement. VITAL SIGNS: BP 110/60 (BP Site: Left Arm, BP Postition: Sitting) Pulse 98 Ht 165.1 cm (5' 5 ) Wt 67.6 kg (149 lb) LMP (LMP Unknown) SpO2 97% BMI 24.79 kg/m No orders of the defined types were placed in this encounter. Medications Discontinued During This Encounter Medication Reason ferrous sulfate 325 (65 FE) MG tablet Therapy completed polyethylene glycol (GLYCOLAX) 17 gram/dose powder Therapy completed [id number] 9-dha 31 mg iron- 1 mg-200 mg capsule Therapy completed IMPRESSIONS/PLAN 1. Vasovagal syncope - POCT EKG - Holter monitor 3-5 days; Future - Echo complete W/O contrast; Future 2. Recurrent syncope - Holter monitor 3-5 days; Future - Echo complete W/O contrast; Future EKG done today and interpreted by myself shows normal sinus rhythm with no evidence of ischemia or prior infarction. With normal intervals and normal conduction. I do think further cardiovascular workup is warranted. I think getting an echocardiogram just to ensure she has a structurally normal heart would be reasonable. Also I think having her wear a monitor just to rule out any significant arrhythmias. Her symptoms sound like vasovagal syncope. Suspect that that is the diagnosis. We discussedstaying well hydrated liberalizing her salt, we also talked about compression stockings and laying down and putting her feet up when her symptoms occurred. We will see her back in 3 months to discuss the results sooner if needed. TODAYS ORDERS Orders Placed This Encounter Procedures Holter monitor 3-5 days POCT EKG Echo complete W/O contrast FOLLOW UP Return in about 3 months (around 02/08/2025). PCP: CARLOZ NELSON MD Referring Physician: Alessandro Lawler MD [address] [facility] [address] [place] [address] documented in this encounterWashington County [facility] Hospital[facility]-12[facility] History of Present illness Narrative* YUNG Chris - 11/06/2024 10:45 AM EDT Routine OB Visit 29 y.o. at 32w2d. Positive movement. No contractions, vaginal bleeding or leaking of fluid. No headaches or swelling. Patient called about a breast pump today. Patient has an appt with cardiology next week and is scheduled with endo in February. Patient is getting iron infusions, next is scheduled for next week. She states she is feeing better. 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 Reviewed warning signs of including signs of labor and preeclampsia. 2. Encouraged FKC twice daily. Pt to notify provider if criteria not met or if FM decreases by 50%. 3. Reviewed safety: safe sleep environment, car seat, home safety. 4. Patient declines Tdap and flu shot. 5. Discussed CDC recommendations for RSV vaccine between 32-36 weeks. 6. Educational information given. 7. Questions answered. 8. Return 2 weeks. YUNG Chris 11/06/24 1118 documented in this [facility]09-12-2025 Instructions* Patient Instructions* YUNG Chris - 11/06/2024 10:45 AM EDT Here is some information from the CDC about the RSV vaccine recommendations: https://www.cdc.gov/rsv/hcp/ueduluy-yftliavx-rpeuaccr/-people.html * Attachments The following attachments cannot be sent through Care Everywhere. * and the Flu (Austrian) documented in this encounterC[facility]09-02-20[facility] History of Present illness Narrative* Padmini Miller RN - 10/27/2024 1:00 PM EDT Patient is here for IV Venofer as scheduled, accompanied by her significant other. She has tolerated last two doses well and denies any issues. PIV initiated in right forearm without incident and tolerated well. Brisk blood return verified and line flushes with ease. NS initiated as mainline at [facility]. Venofer infused over 15 minutes without issues. Upon completion, IV flushed. Patient declinedto stay for 30 minute observation, but agreeable to VS recheck. VS stable. PIV discontinued and pressure dressing applied. Treatment calendar provided for next two doses of medication. Patient discharged in stable condition to private vehicle, in care of her significant other, to private vehicle. documented in this encounterCinc[facility]08-29-2025 History of Present illness Narrative* YUNG Chris - 10/23/2024 10:00 AM EDT Routine OB Visit 29 y.o. at 30w2d. No contractions, vaginal bleeding or loss of fluid. No headache or swelling. Denies depression. Good movement. Denies concerns. Patient does not yet have a breast pump. 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 Reviewed signs of labor & other warning signs of including preeclampsia. 2. Reviewed recommendation for twice daily FKC. Pt to notify provider if criteria is not met or if FM decreased by 50%. 3. Reviewed 28 week labs. 4. Discussed CDC / WHO recommendations for exclusive for the first 6 months. 5. Patient declines Tdap. 6. Educational information given. 7. Questions answered. 8. Return 2 weeks. YUNG Chris 10/23/24 1022 documented in this encounterCincinnati [facility]08-29-2025 Miscellaneous Notes* Telephone Encounter - ZEUS Lester - 10/23/2024 9:20 AM EDT Delicia Shaw is a at 30w6d. I had reviewed her lab results 10/23/24. Hbg 11.8 and ferritin 112 on 10/22/24. Received Venofer on 10/13/24 and 10/16/24. She messaged me, When you guys send me these results it s nice but it s not like I understand now it says my iron binding is too high and that s not good. I d prefer someone to call and explain whats going on instead of sending results like this . I still have all the symptoms of anemia so it definitely is a confusing/ concerning time for me especially being . I called her back. Explained that ferritin and hgb are in normal range, but she should continue thetherapy plan for Venofer X 5. - ZEUS Madera 10/27/24 8:52 AM documented in this encounterCincinnati [facility]08-29-2025 Telephone encounter Note* Telephone Encounter - ZEUS Lester - 10/23/2024 9:20 AM EDT Delicia Shaw is a at 30w6d. I had reviewed her lab results 10/23/24. Hbg 11.8 and ferritin 112 on 10/22/24. Received Venofer on 10/13/24 and 10/16/24. She messaged me, When you guys send me these results it s nice but it s not like I understand now it says my iron binding is too high and that s not good. I d prefer someone to call and explain whats going on instead of sending results like this . I still have all the symptoms of anemia so it definitely is a confusing/ concerning time for me especially being . I called her back. Explained that ferritin and hgb are in normal range, but she should continue thetherapy plan for Venofer X 5. - ZEUS Madera 10/27/24 8:52 AM [facility] Miscellaneous Notes* Telephone Encounter - Lucinda Nunez CMA - 10/19/2024 10:00 AM EDT 10/19/2024 - ORGANIC LAB WORKER REFERRAL ALESSANDRO LAWLER VASOVAGAL SYNCOPE, PHONED PT AND APPT SCHEDULED FOR 09/15/2024, PT WAS A NO SHOW FOR THIS APPT, PT RESCHEDULED FOR 10/15/24 AND PT WAS A NO SHOW AGAIN, PHONED PTALAURA PITTMAN ON VM TO CALL OFFICE TO RESCHEDULE APPT, LETTER MAILED TO PT, JSL documented in this encounterCincinnati [facility]08-25-2025 Telephone encounter Note* Telephone Encounter - Lucinda Nunez CMA - 10/19/2024 10:00 AM EDT 10/19/2024 - ORGANIC LAB WORKER REFERRAL ALESSANDRO LAWLER VASOVAGAL SYNCOPE, PHONED PT AND APPT SCHEDULED FOR 09/15/2024, PT WAS A NO SHOW FOR THIS APPT, PT RESCHEDULED FOR 10/15/24 AND PT WAS A NO SHOW AGAIN, PHONED PTAND LM ON VM TO CALL OFFICE TO RESCHEDULE APPT, LETTER MAILED TO PT, JSL [facility] History of Present illness Narrative* Gavin Manning RN - 10/16/2024 2:00 PM EDT Pt here for venofer infusion, reports tolerating previous infusion. PIV initiated to R hand, brisk blood return noted, flushes without difficulty. Venofer infused over 15 min per order. Pt tolerated well. Pt declines full 30 min OBS. VS stable, PIV discontinued, pressure dressing applied. Pt verbalized understanding of future appointments, pt discharged ambulatory in stable condition. documented in this encounterCincinnati [facility]08-21-2025 Miscellaneous Notes* Telephone Encounter - Sandra Lynn CMA - 10/15/2024 12:28 PM EDT LMOM IN REGARDS TO MISSED APPT. ASKED FOR R/C TO RESCHED THIS APPT. documented in this encounterCincinnati [facility]08-21-2025 Telephone encounter Note* Telephone Encounter - Sandra Lynn CMA - 10/15/2024 12:28 PM EDT LMOM IN REGARDS TO MISSED APPT. ASKED FOR R/C TO RESCHED THIS APPT. [facility] Miscellaneous Notes* Telephone Encounter - ZEUS Lanier - 10/13/2024 9:06 PM EDT Pt. Calls with concern of with pelvic pain which is not getting better. She states it hurts to walkand she has used a heating pad. She denies ctx., VB and LOF. She affirms + FM. She states she has not taken any medication for the pain. She relates the pain began last night and it has gotten worse.She states she had an iron infusion and then she went to [facility] and then it worsened. She relates it was painful getting into bed and that is where she is now. She states this has not happened before. She states she had hip pain around 20 wks which was relieved w/heating pad. She states she had a soak in the bathtub which did not help. She relates it feels better when she is there and it is relieved there. She denies fever. She denies dysuria. Advised pt. To take 2 500mg of tylenol and 25mg ofbenadryl. Pt. States she has unisom and it gives her bad restless legs. Advised pt. To take just tylenol then. Advised may need belly band for round ligament pain. Advised if not getting sufficient relief, can call in a.m to get appt. Prior to appt. Which is scheduled on the in order to order bellyband. Advised to come in or call for LOF, VB, decreased FM or Ctx. Q.10min. x 1hr. Pt. Verbalized understanding. documented in this encounterCincinnati [facility]08-19-2025 Telephone encounter Note* Telephone Encounter - ZEUS Lanier - 10/13/2024 9:06 PM EDT Pt. Calls with concern of with pelvic pain which is not getting better. She states it hurts to walkand she has used a heating pad. She denies ctx., VB and LOF. She affirms + FM. She states she has not taken any medication for the pain. She relates the pain began last night and it has gotten worse.She states she had an iron infusion and then she went to [facility] and then it worsened. She relates it was painful getting into bed and that is where she is now. She states this has not happened before. She states she had hip pain around 20 wks which was relieved w/heating pad. She states she had a soak in the bathtub which did not help. She relates it feels better when she is there and it is relieved there. She denies fever. She denies dysuria. Advised pt. To take 2 500mg of tylenol and 25mg ofbenadryl. Pt. States she has unisom and it gives her bad restless legs. Advised pt. To take just tylenol then. Advised may need belly band for round ligament pain. Advised if not getting sufficient relief, can call in a.m to get appt. Prior to appt. Which is scheduled on the in order to order bellyband. Advised to come in or call for LOF, VB, decreased FM or Ctx. Q.10min. x 1hr. Pt. Verbalized understanding. [facility] [id number] Miscellaneous Notes* Telephone Encounter - Yanet Guadalupe - 10/13/2024 9:00 PM EDT Contract: [address] Valeria elise pelvic pain, not contractions; almost unbearable and hard to walk sometimes; feels baby moving in that area; has tried a warm bath and heating pad; 29 weeks Relayed info to Trevor BUSCH and transferred documented in this encounterC[facility] [id number] Telephone encounter Note* Telephone Encounter - Yanet Guadalupe - 10/13/2024 9:00 PM EDT Contract: 129 Ms Valeria elise pelvic pain, not contractions; almost unbearable and hard to walk sometimes; feels baby moving in that area; has tried a warm bath and heating pad; 29 weeks Relayed info to Trevor BUSCH and transferred [facility] History of Present illness Narrative* Steven Vann RN - 10/13/2024 1:30 PM EDT Pt is here for first IV iron infusion. Instructed on purpose/potential side effects of venofer, andsymptoms to report immediately. Printed education provided. Pt v/u PIV initiated to left hand. Brisk blood return verified. Flushes with ease. NS started at [facility]. Venofer infused over 15 minutes without incident. Line flushed. Pt remained for 30 minute observation. VS stable. Reports she feels at baseline. PIV removed. Pressure dressing applied. Dc'd in stable ambulatory condition. 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 at 28w2d by 6 wk US She denies cramping, contractions, or abdominal pain She denies vaginal bleeding, vaginal discharge, or loss of fluid. movement: present Other questions or concerns today: Constipation, unable to tolerate PO iron OBJECTIVE Current Medications: Current Outpatient Medications: doxylamine (UNISOM, DOXYLAMINE,) 25 mg tablet, Take 1 tablet (25 mg total) by mouth nightly., Disp:30 tablet, Rfl: 0 magnesium oxide (MAGOX) 400 mg tablet, Take 1 tablet (400 mg total) by mouth nightly., Disp: 30 tablet, Rfl: 4 PNV no.95/ferrous fum/folic ac ( ORAL), Take by mouth., Disp: , Rfl: ferrous sulfate 325 (65 FE) MG tablet, Take 1 tablet (325 mg total) by mouth in the morning. (Patient not taking: Reported on 10/09/2024), Disp: 30 tablet, Rfl: 3 polyethylene glycol (GLYCOLAX) 17 gram/dose powder, Take 17 g by mouth in the morning., Disp: 510 g, Rfl: 3 67-dwmn-cudbch 9-dha 31 mg iron- 1 mg-200 mg capsule, Take 1 capsule by mouth in the morning. (Patient not taking: Reported on 10/09/2024), Disp: 90 capsule, Rfl: 3 Vitals BP 112/76 Wt 65.1 kg (143 lb 9.6 oz) LMP (LMP Unknown) BMI 23.18 kg/m See OB flowsheet Labs ABO/Rh: No results found for: ABORH Group B Strep: Lab Results Component Value Date CULTURE <10,000 ORGANISMS/ML NORMAL URO GENITAL DEZ 05/11/2024 Hepatitis B Surface Antigen: Lab Results Component Value Date HEPBSAG Non-Reactive 05/11/2024 Rubella: Lab Results Component Value Date RUBELLAIMMU 1.0 05/11/2024 Varicella Lab Results Component Value Date VARIGG 1.4 (H) 05/11/2024 HIV: Lab Results Component Value Date HIV4 Non-Reactive 05/11/2024 RPR (VDRL): Lab Results Component Value Date SYPHILISTOT <0.2 09/18/2024 One hour GTT: Lab Results Component Value Date LABGLUC 83 09/18/2024 Physical Exam: General: Patient is well-appearing, alert, oriented, and in no distress Abd: soft, non-tender, gravid Ext: no edema FHT: 140 Fundal height: 28 cm ASSESSMENT & PLAN 29 y.o. @ 28w2d, BELKIS 12/30/2024, by Ultrasound presents for routine OB visit 1. 28 weeks gestation of (Primary) - Urogenital Ureaplasma and Mycoplasma Species by PCR: Urine 2. 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 Constipation during in third trimester - polyethylene glycol (GLYCOLAX) 17 gram/dose powder; Take 17 g by mouth in the morning. Dispense: 510 g; Refill: 3 4. Iron deficiency anemia Ferritin 6 and hgb 12.1 on 09/18/24 - having restless legs and fatigue Pt is unable to tolerate PO iron, having GI disturbance and significant constipation IV iron infusions ordered Discussed constipation management in Discussed iron deficiency and how this likely relates to restless leg symptoms RTO 2 weeks, sooner if needed YUNG Lopez 10/09/24 1229 [facility] History of Present illness Narrative* Alice Michel MD - 09/29/2024 10:30 AM EDT [facility]- Thyroid Visit Delicia Shaw is a 29 y.o. with subclinical hypothyroidism.Patient is currently 26w6d and is being referred by her [employer]. The patient's current regimen is: Patient is not on any medication Patient is feeling well today. She presents to establish care with endocrinology. She has no prior history of hypothyroidism or any other thyroid dysfunction. She has a family history of Lupus in hersister (who passed from Lupus) and in her mother. She has no other diagnosed autoimmune condition. She was noting increased fatigue in with cold intolerance and sluggishness. Her iron was found to be low along with elevated TSH of 7. Symptoms: Hypothyroid: Cold intolerance: Yes Fatigue: Yes, extreme Constipation: Yes, making diet changes Skin or hair changes: Yes, both dry skin and hair loss Brain fog: Yes, has adult ADHD Weight gain: Yes, Hyper: Heart racing: Yes Heat intolerance: No Sweating: Yes Anxiety: Yes Diarrhea: No Weight loss: No No history of YEH, radiation to head and neck or surgery to neck. Patient denies chest pain, vision changes, SOB, Nausea/ vomiting, numbness/ tingling/ pain in extremities, foot pain or ulcerations or edema. ROS otherwise negative if not mentioned above. Past Medical History: Diagnosis Date Adult ADHD Anxiety Eczema Past Surgical History: Procedure Laterality Date APPENDECTOMY 2023 Family History Problem Relation Age of Onset Lupus Mother Migraines Mother Lupus Sister Autism Neg Hx Developmental delay Neg Hx Clotting disorder Neg Hx Bleeding Disorder Neg Hx Congenital heart disease Neg Hx Sudden Neg Hx Social History Socioeconomic History Marital status: Single Spouse name: Not on file Number of children: Not on file Years of education: Not on file Highest education level: Not on file Occupational History Not on file Tobacco Use Smoking status: Never Passive exposure: Never Smokeless tobacco: Never Vaping Use Vaping status: Former Quit date: 12/27/2023 Substances: Nicotine Substance and Sexual Activity Alcohol use: Not Currently Drug use: Not Currently Types: Marijuana Sexual activity: Yes Partners: Male control/protection: None Other Topics Concern Not on file Social History Narrative Not on file Social Drivers of Health Financial Resource Strain: Not on file Food Insecurity: No Food Insecurity (09/29/2024) Hunger Screening Food Insecurity - Worry: Never True Food Insecurity - Inability: Never True Transportation Needs: Not on file Physical Activity: Not on file Stress: Not on file Social Connections: Not on file Interpersonal Safety: Not on file Housing Instability: Not on file Current Outpatient Medications: doxylamine (UNISOM, DOXYLAMINE,) 25 mg tablet, Take 1 tablet (25 mg total) by mouth nightly., Disp:30 tablet, Rfl: 0 ferrous sulfate 325 (65 FE) MG tablet, Take 1 tablet (325 mg total) by mouth in the morning., Disp:30 tablet, Rfl: 3 magnesium oxide (MAGOX) 400 mg tablet, Take 1 tablet (400 mg total) by mouth nightly., Disp: 30 tablet, Rfl: 4 PNV no.95/ferrous fum/folic ac ( ORAL), Take by mouth., Disp: , Rfl: 33-dncu-aozkpd 9-dha 31 mg iron- 1 mg-200 mg capsule, Take 1 capsule by mouth in the morning. (Patient not taking: Reported on 09/29/2024), Disp: 90 capsule, Rfl: 3 There are no hospital problems to display for this patient. EXAM: Height 167.6 cm (5' 6 ), weight 65.3 kg (144 lb). Body mass index is 23.24 kg/m . General- awake/ alert/ pleasant Neck: Thyroid not enlarged, no masses palpable, no tenderness Cardiac: RRR Respiratory: CTAB Abdomen: soft, non-distended Extremities: appropriate coloration, bilateral pulses, no rashes visible Neuro: appropriate gait, appropriate mentation Assessment and Plan Delicia Shaw is a 29 y.o. with subclinical hypothyroidism due to either inducedthyroid changes vs autoimmune hypothyroidism. 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 No history of miscarriages. We will repeat the Tsh with fT4 to confirm if the TSH remains elevated after iron supplementation has been started last week. We will also check thyroid antibody levels to help with the diagnosis. Recent thyroid levels are: Component Latest Ref Rng 09/18/2024 Free t4 0.61 - 1.60 ng/dL 0.65 TSH 0.49 - 4.67 uIU/mL 7.80 (H) We will plan to start levothyroxine 50-75 mcg depending on her repeat TSH levels. Repeat labs every 4-6 weeks while . We will also repeat labs about 2 months after she delivers to determine if she needs thyroid hormone supplementation after delivery. I explained there is a 1% incidence of hypothyroidism in the general population. The thyroid is important for normal growth and maintenance of lipid and carbohydrate metabolism. We discussed the pathophysiology of thyroid regulation including stimulation of the thyroid from TSH from the anterior pituitary. In , the physiology changes somewhat due to increased amounts of hormones such as estrogen which blocks the degradation of thyroid binding globulin and human chorionic gonadotropin which stimulates thyroid hormone secretion and suppresses TSH. Throughout , there is a 30-50% increase in the requirement of throxine. In the fetus, the small amount of thyroxine that crosses the placenta provides thyroid hormone until 10-12 weeks. After this time, the fetus begins to synthesis thyroid hormone. We also discussed hypothyroidism often occurs due to Lauren s thyroiditis. If this occurs, therecan be antibodies circulating in the patient which cross the placenta and act on the fetus. The fetus can then develop a goiter. Although this is rare, but can be found if the maternal circulating antibodies are elevated. Some of the complications in associated with untreated or partially treated hypothyroidism are preeclampsia, abruption, and low weight. When the maternal free T4 is verylow in , the infant is at risk for impaired psychomotor function and a significantly lowerIQ. Therefore, recommendations are to maintain serum TSH 0.5-2.0 microIU/ml and Free T4 in the upper third of normal range. Measure TSH and Free T4 every 4 weeks and patient should go back to pre- dosing in the PP period. Follow up in 5 months; - ALICE MICHEL MD 09/29/24 12:20 PM [facility] documented [facility] encounterC[facility] History of Present illness Narrative* ZEUS Lester - 09/21/2024 9:11 AM EDT Spoke with Delicia Shaw regarding results: Iron deficiency anemia, ferritin 6 and hgb 12.1 on 09/18/24. Start oral iron. Repeat CBC and iron studies in 4 weeks. Low ferritin may explain her symptoms of restless legs, sleep disturbance, and fatigue. TSH high 7.8, T4 normal 0.65 on 09/18/24. Subclinical hypothyroid. Discussed with Dr. Duncan. Place referral to endocrinology and repeat thyroid profile in 6 weeks. Patient states she rescheduled her cardiology appointment for 10/15/24 ZEUS Lester 09/21/24 1006 documented in this encounterC[facility]07[facility] History of Present illness Narrative* ZEUS Lester - 09/18/2024 11:30 AM EDT S: Delicia Shaw is a 29 y.o. at 25w2d 12/30/2024, by Ultrasound who presents for routine OB appointment. She has her partner here with her today. She reports + FM. She denies contractions, vaginal bleeding, loss of fluid, dysuria, headache, visual disturbances, or epigastic pain. Delicia was tearful when I asked her how she was feeling. She complains of lower back and hip pain.States she was given a web site to order an abdominal support belt and breast pump, but lost the information. She tries not to take Tylenol during . She has been taking nightly pads to help relieve the pain. She complains of sleep disturbances due to restless legs. She has fatigue throughout the day. She admits to not being very active due to her discomfort and fatigue. She reports a history of anxiety. States she does not feel that she has depression, but is rather frustrated and feeling unwell due to lack of sleep and pain. After discussion of her issues and our plan of care, patient was smiling and appeared much more relaxed. Problem list: Reports traumatic delivery with first child in [place]. History of macrocosmic , G1 4082g Migraine with & without aura and syncope, neurology consult 09/08/24. MRI and EEG to rule our seizure disorder. Cardiac echo and consider remote cardiac monitoring for arrhythmias BV 05/20/24, treated with flagyl Ureaplasma and mycoplasma 07/29/24, treated with azithromycin. O: BP 114/64 Wt 63.4 kg (139 lb 12.8 oz) LMP (LMP Unknown) BMI 23.26 kg/m FHT: 141 BPM Fundal Height: 25 cm A: IUP at 25w2d BMI: Body mass index is 23.26 kg/m . Problem List Items Addressed This Visit Back pain affecting History of back injury History of delivery of macrosomal Recurrent syncope Other Visit Diagnoses care, second trimester - Primary Relevant Orders CBC auto differential Glucose 1h post 50g load Syphilis Total(Unknown Syphilis Status) Restless leg syndrome in Relevant Medications magnesium oxide (MAGOX) tablet 400 mg Sleep disturbance Relevant Medications doxylamine (UNISOM, DOXYLAMINE,) 25 mg tablet related fatigue in second trimester Relevant Orders Iron and TIBC Thyroid profile includes TSH FT4 Ferritin Vitamin D 25 hydroxy P: Maternity support belt ordered Magnesium oxide nightly for restless legs and Unisom nightly for sleep. Ferritin, TSH, and vitamin-D level for fatigue 28 week labs ordered Reviewed lab results NIPS low risk Carrier negative AFP normal risk Blood type AB+ Hgb 12.7 on 06/17/24 Discussed Plan: Baby boy Syler Circumcision: requests Feeding: breast U/S 08/20/24 at 21w1d: cephalic, anterior placenta, EFW 65%, AC 64% Reviewed labor precautions, preeclampsia precautions and kick counts. Return to care in 3 weeks. Pt verbalizes understanding and agreeable to plan of care. - ZEUS Madera 09/18/24 12:59 PM ZEUS Lester 09/18/24 1259 documented in this encounterC[facility]07-[facility] History of Present illness Narrative* Lizz Putnam MD - 09/08/2024 10:00 AM EDT Images from the original note were not included. [address] [place] [address] Patient: Delicia Shaw Date of : 1995 Encounter Date: 09/08/2024 Patient Care Team: Carloz Nelson MD as PCP - General (Internal Medicine) History of Present Illness: The patient is a 29 y.o. female, a new patient, and is here for evaluation of recurrent syncope andmigraine type headaches. She is currently accompanied to the clinic by her spouse. She has been referred to us by her PCP. Summary of Condition: The patient is a right-handed female with No significant past medical history presents with the Neurology Clinic today for evaluation of recurrent syncope and migraine-type headaches. She is currently , at the end of the 2nd trimester. BELKIS in early December 2024. The patient reports onset of passing out and near passing out episodes in early 2020, with no causative etiology identified at the time. The patient reports having episodes of severe lightheadedness usually associated with diaphoresis, palpitations, nausea which can lead to brief loss of consciousness. Sometimes she does not get any warnings and just passes out. She denies previous history of cardiac or neurological disorders except for migraines. She denies any convulsive activity, incontinence, tongue bites associated with the syncopal episodes. A lot of times the symptoms are brought on when she stands up abruptly, likely after she has been sitting down for some time. At other times she seems to develop lightheadedness with prolonged standing, like she did last month when she was at [facility]. At other times the syncopal episodes have occurred right after a bowel movement or urination. Her last syncopal episode was about a month ago. She has had a couple of presyncopal episodes since then without loss of consciousness. It seems the frequency of presyncopal and syncopal episodes increased in the 1st trimester of , the patient reports being stressed at the time. Denies previous history of epilepsy, family history of epilepsy, history of meningitis or encephalitis, learning disability, TBI, history of abuse. Denies previous history of CVA. She reports having a longstanding history of migraines, with onset around puberty: Describes a typical headache originating in the bifrontal region, described as pulsating pressure-like pain, associated with nausea, vomiting, photophobia, phonophobia, allodynia, fatigue and dizziness, with no associated symptoms of dysautonomia. She does report having frequent visual auras(zigzag lines, bright flashing lights in both galvan of vision) preceding migraine-type headaches, usually last 5-10 minutesbefore onset of migraine-type headaches. In the 1st trimester she was having almost daily headaches, however headache frequency and severity seems to have decreased significantly over the last 1-2 months. She has had 1-2 headache days over the last month. She did not have to take any abortive medicine for relief from those headaches. She has tried Benadryl in the past as abortive therapy for headaches which seemed to help. Tylenol seems to be moderately effective in aborting headaches. The patient reports that she was given sumatriptan when she was younger, and that seemed to help as an abortive treatment for headaches quite well. Headache seemed to worsen during the 1st trimester of , when the patient reportedly was stressed. Also reports that her blood pressure was elevated during the 1st trimester, however that has normalized now. She is not on any antihypertensives at this time. The patient is currently independent with ADLs and IADLs. Denies having any complications from at this time. Currently ambulating without any assistive devices Allergies: Patient has no known allergies. Review of Relevant Patient Questionnaires: HIT 6: No data to display PHQ-9: No data to display PHQ-15: No data to display JOSEPHINE-7: No data to display PTSD: No data to display [place]: No data to display ELADIO-10: No data to display Past Medical, Family, Surgical, and Social History Update: The following portions of the patient's history were reviewed and updated as appropriate: allergies, current medications, past family history, past medical history, past social history, past surgicalhistory and problem list. Past Medical History: Diagnosis Date Adult ADHD Anxiety Eczema Family History Problem Relation Age of Onset Lupus Mother Migraines Mother Lupus Sister Autism Neg Hx Developmental delay Neg Hx Clotting disorder Neg Hx Bleeding Disorder Neg Hx Congenital heart disease Neg Hx Sudden Neg Hx Past Surgical History: Procedure Laterality Date APPENDECTOMY 2023 Current Outpatient Medications Medication Sig Dispense Refill 86-uelx-sqpatz 9-dha 31 mg iron- 1 mg-200 mg capsule Take 1 capsule by mouth in the morning. 90 capsule 3 No current facility-administered medications for this visit. (All medications reviewed and updated by provider since last office visit or hospitalization) Tobacco History: Social History Tobacco Use Smoking Status Never Smokeless Tobacco Never (If patient a smoker, smoking cessation counseling offered) Social History: Social History Substance and Sexual Activity Alcohol Use Not Currently Review of Systems: 14 systems were reviewed and negative except those mentioned in HPI . Physical Exam: Vitals: Vitals: 09/08/24 0943 BP: 109/69 Pulse: 86 Weight: 63 kg (139 lb) Height: 165.1 cm (5' 5 ) Patient consulted for exercise: encouragement to exercise. Neurological Physical Exam: Neurologic: Mental status: Alert; oriented to time, place, person and situation. No aphasia. No dysarthria. Normal recent and remote memory. Normal attention span and concentration. Able to provide good history. Cranial nerves: II: pupils equal and reactive to light; visual galvan full; III, IV, : extraocular movements intact; no ptosis. No nystagmus. V: facial sensation equal to touch in all 3 divisions bilaterally. No weakness of muscles of mastication. VII: face symmetric with normal eye closure and smile. VIII: hearing normal to rubbing fingers IX, X: palate elevates symmetrically; phonation normal. XI: Shoulder elevation symmetric and 5/5. Sternocleidomastoid muscle strength symmetric. XII: tongue midline with good movements. Undilated Funduscopy shows up normal optic discs and retinal vessels bilateral Motor: Normal bulk. No fasciculations. Normal muscle tone. Motor strength 5/5 in bilateral upper and bilateral lower extremities. No bradykinesia. No tremors. No other abnormal movements. Reflexes: DTRs 2/4 and symmetric bilaterally. No ankle clonus was noted. Sensory examination: Sensation to light touch is bilaterally symmetric and normal. Coordination: Guyncz-ychp-alagis and owjy-slof-qczk tests are normal. No dysdiadochokinesia on rapid alternating movements. Gait and Station: Patient walks with narrow base and normal stride. Romberg's test negative Data Reviewed: Lab Results Component Value Date CREATININE 0.61 06/17/2024 BUN 8 06/17/2024 K 4.3 06/17/2024 CL 103 06/17/2024 CO2 28 06/17/2024 Lab Results Component Value Date WBC 7.0 06/17/2024 HGB 12.7 06/17/2024 HCT 37.6 06/17/2024 MCV 87 06/17/2024 PLT 243 06/17/2024 Lab Results Component Value Date ALT 8 06/17/2024 AST 12 06/17/2024 ALKPHOS 32 (L) 06/17/2024 No results found for: INR , PROTIME No results found for: PTT Diagnostic Study Results: CT US MFM with or without consult Result Date: 08/20/2024 Narrative: NAME: VALERIA SHERMAN : 1995 SEX: F Accession Number: [id number] ORDERING PHYSICIAN: ALESSANDRO LAWLER REFERRING PHYSICIAN: SANJUANITA NGUYEN Coding Procedures 53773: Transvaginal Ultrasound (OB) 09120: Ultrasound, uterus, real time with image documentation, and maternal evaluation plus detailed anatomic examination, transabdominal approach;single or first gestation Indication Screening for Anatomic Survey, Screening for cervical length, Supervision of high risk -(Syncope) History --- OB History 2. Para 1 [id number] Current Cell free DNA low risk analysis Maternal Assessment Physical Exam Height 165 cm, 5 ft 5 in. Weight 61 kg, 134 lb. Initial weight 54 kg, 120 lb. BMI 22.30 kg/m . Initial BMI 19.97 kg/m . Weight gain 6 kg, 14 lb Method Transabdominal and transvaginal ultrasound examination Yoo . Number of fetuses: 1 Dating Previous Ultrasound on: 05/11/2024 Type of prior assessment: GA GA at prior assessment date 6 w + 5 d GA by previous U/S 21 w + 1 d BELKIS by previous Ultrasound: 12/30/2024 Ultrasound examination on: 08/20/2024 GA by U/S based upon: AC, BPD, Femur, HC GA by U/S 21 w + 4 d BELKIS by U/S: 12/27/2024 Assigned: based on ultrasound (GA), selected on Assigned GA 21 w + 1 d Assigned BELKIS: 12/30/2024 General Evaluation Cardiac activity Present. [id number] bpm. Presentation: cephalic Placenta: Placental site: anterior, away from cervical os Umbilicalcord: Cord vessels: 3 vessel cord. Insertion site: normal insertion Amniotic fluid: Amount of AF: normal amount Biometry Standard BPD 50.8 mm 21w 3d 59% Hadlock OFD 71.3 mm 23w 5d 99% Adrian HC 195.7 mm 21w 5d 68% Hadlock Cerebellum tr 21.7 mm 20w 3d 38% Hill Nuchal fold 4.3 mm AC 167.6 mm 21w 5d 64% Hadlock Femur 35.4 mm 21w 1d 42% Hadlock Humerus 33.7 mm 21w 3d 57% Adrian HC / AC 1.17 EFW 431 g 65% Hadlock EFW (lb) 0 lb EFW (oz) 15 oz EFW by: Hadlock (CLA-VN-LD-FL) Extended Tibia 29.6 mm 20w6d 39% Adrian Irrigation Technician 6.0 mm CM 4.5 mm 25% Nicolaides Head / Face / Neck Cephalic index 0.71 1% Nicolaides Nasal bone: present Extremities / Bony Struc FL / BPD 0.70 FL / HC 0.18 FL / AC 0.21 Other Structures FHR 141 bpm Anatomy The following structures appear normal: Head/Neck: Cranium. Lateral ventricles. Choroid plexus. Midline falx. Cavum septi pellucidi. Cerebellum. Cisterna magna. Parenchyma. Vermis. Neck. Nuchal fold. Face: Lips. Profile. Nose. Nasal bone. Maxilla. Mandible. Orbits. Heart/Thorax: 4-chamber view. RVOT view. LVOT view. 3-vessel view. 1-yxrwld-eiadcif view. Situs. Aortic archview. Bicaval view. Ductal arch view. Interventricular septum. Great vessels. Cardiac position. Cardiac axis. Cardiac size. Cardiac rhythm. Right lung. Left lung. Diaphragm. Abdomen: Abdom. wall. Cord insertion. Stomach. Kidneys. Bladder. Small bowel. Large bowel. Right renal artery. Left renal surya ry. Genitals. Spine: Cervical spine. Thoracic spine. Lumbar spine. Sacral spine. Extremities/Skeleton: Right upper arm. Right forearm. Right hand. Left upper arm. Left forearm. Left hand. Right upperleg. Right lower leg. Right foot. Left upper leg. Left lower leg. Left foot. Maternal Structures --- Uterus Visualized Cervix Visualized Approach - Transvaginal: Cervical length 5.89 cm Right Ovary Not visualized Left Ovary Not visualized Cul de Sac Visualized. No free fluid visualized Impression --- Single viable intrauterine consistent with 21w 1d with an BELKIS of 12/30/2024. anatomic survey did notreveal sonographic evidence of any gross structural abnormalities. Transvaginal cervical length measures 5.89 cm. Recommendations Please see MFM documentation from today. Subsequent follow up or other follow up as clinically determined by primary OB provider unless otherwise specified by MFM. Results forwarded to ordering provider so they can follow up with the patient as necessary. US MFM with or without consult Result Date: 08/20/2024 Narrative: NAME: VALERIA SHERMAN : 1995 SEX: F Accession Number: [id number] ORDERING PHYSICIAN: ALESSANDRO LAWLER REFERRING PHYSICIAN: SANJUANITA NGUYEN Coding Procedures [id number]: Transvaginal Ultrasound (OB) 92314: Ultrasound, uterus, real time with image documentation, and maternal evaluation plus detailed anatomic examination, transabdominal approach;single or first gestation Indication Screening for Anatomic Survey, Screening for cervical length, Supervision of high risk -(Syncope) History --- OB History 2. Para 1 [id number] Current Cell free DNA low risk analysis Maternal Assessment Physical Exam Height 165 cm, 5 ft 5 in. Weight 61 kg, 134 lb. Initial weight 54 kg, 120 lb. BMI 22.30 kg/m . Initial BMI 19.97 kg/m . Weight gain 6 kg, 14 lb Method Transabdominal and transvaginal ultrasound examination Yoo . Number of fetuses: 1 Dating Previous Ultrasound on: 05/11/2024 Type of prior assessment: GA GA at prior assessment date 6 w + 5 d GA by previous U/S 21 w + 1 d BELKIS by previous Ultrasound: 12/30/2024 Ultrasound examination on: 08/20/2024 GA by U/S based upon: AC, BPD, Femur, HC GA by U/S 21 w + 4 d BELKIS by U/S: 12/27/2024 Assigned: based on ultrasound (GA), selected on Assigned GA 21 w + 1 d Assigned BELKIS: 12/30/2024 General Evaluation Cardiac activity Present. [id number] bpm. Presentation: cephalic Placenta: Placental site: anterior, away from cervical os Umbilicalcord: Cord vessels: 3 vessel cord. Insertion site: normal insertion Amniotic fluid: Amount of AF: normal amount Biometry Standard BPD 50.8 mm 21w 3d 59% Hadlock OFD 71.3 mm 23w 5d 99% Adrian HC 195.7 mm 21w 5d 68% Hadlock Cerebellum tr 21.7 mm 20w 3d 38% Hill Nuchal fold 4.3 mm AC 167.6 mm 21w 5d 64% Hadlock Femur 35.4 mm 21w 1d 42% Hadlock Humerus 33.7 mm 21w 3d 57% Adrian HC / AC 1.17 EFW 431 g 65% Hadlock EFW (lb) 0 lb EFW (oz) 15 oz EFW by: Gonzalolock ([id number]) Extended Tibia 29.6 mm 20w6d 39% Adrian Irrigation Technician 6.0 mm CM 4.5 mm 25% Nicolaides Head / Face / Neck Cephalic index 0.71 1% Nicolaides Nasal bone: present Extremities / Bony Struc FL / BPD 0.70 FL / HC 0.18 FL / AC 0.21 Other Structures FHR 141 bpm Anatomy The following structures appear normal: Head/Neck: Cranium. Lateral ventricles. Choroid plexus. Midline falx. Cavum septi pellucidi. Cerebellum. Cisterna magna. Parenchyma. Vermis. Neck. Nuchal fold. Face: Lips. Profile. Nose. Nasal bone. Maxilla. Mandible. Orbits. Heart/Thorax: 4-chamber view. RVOT view. LVOT view. 3-vessel view. 8-fneigt-tyosnju view. Situs. Aortic archview. Bicaval view. Ductal arch view. Interventricular septum. Great vessels. Cardiac position. Cardiac axis. Cardiac size. Cardiac rhythm. Right lung. Left lung. Diaphragm. Abdomen: Abdom. wall. Cord insertion. Stomach. Kidneys. Bladder. Small bowel. Large bowel. Right renal artery. Left renal surya ry. Genitals. Spine: Cervical spine. Thoracic spine. Lumbar spine. Sacral spine. Extremities/Skeleton: Right upper arm. Right forearm. Right hand. Left upper arm. Left forearm. Left hand. Right upperleg. Right lower leg. Right foot. Left upper leg. Left lower leg. Left foot. Maternal Structures --- Uterus Visualized Cervix Visualized Approach - Transvaginal: Cervical length 5.89 cm Right Ovary Not visualized Left Ovary Not visualized Cul de Sac Visualized. No free fluid visualized Impression --- Single viable intrauterine consistent with 21w 1d with an BELKIS of 12/30/2024. anatomic survey did notreveal sonographic evidence of any gross structural abnormalities. Transvaginal cervical length measures 5.89 cm. Recommendations Please see MFM documentation from today. Subsequent follow up or other follow up as clinically determined by primary OB provider unless otherwise specified by MFM. Results forwarded to ordering provider so they can follow up with the patient as necessary. US [facility] with or without consult Result Date: 08/20/2024 Narrative: NAME: VALERIA SHERMAN : 1995 SEX: F Accession Number: [id number] ORDERING PHYSICIAN: ALESSANDRO LAWLER REFERRING PHYSICIAN: SANJUANITA NGUYEN Coding Procedures [id number]: Transvaginal Ultrasound (OB) [id number]: Ultrasound, uterus, real time with image documentation, and maternal evaluation plus detailed anatomic examination, transabdominal approach;single or first gestation Indication Screening for Anatomic Survey, Screening for cervical length, Supervision of high risk -(Syncope) History --- OB History 2. Para 1 [id number] Current Cell free DNA low risk analysis Maternal Assessment Physical Exam Height 165 cm, 5 ft 5 in. Weight 61 kg, 134 lb. Initial weight 54 kg, 120 lb. BMI 22.30 kg/m . Initial BMI 19.97 kg/m . Weight gain 6 kg, 14 lb Method Transabdominal and transvaginal ultrasound examination Yoo . Number of fetuses: 1 Dating Previous Ultrasound on: 05/11/2024 Type of prior assessment: GA GA at prior assessment date 6 w + 5 d GA by previous U/S 21 w + 1 d BELKIS by previous Ultrasound: 12/30/2024 Ultrasound examination on: 08/20/2024 GA by U/S based upon: AC, BPD, Femur, HC GA by U/S 21 w + 4 d BELKIS by U/S: 12/27/2024 Assigned: based on ultrasound (GA), selected on Assigned GA 21 w + 1 d Assigned BELKIS: 12/30/2024 General Evaluation Cardiac activity Present. [id number] bpm. Presentation: cephalic Placenta: Placental site: anterior, away from cervical os Umbilicalcord: Cord vessels: 3 vessel cord. Insertion site: normal insertion Amniotic fluid: Amount of AF: normal amount Biometry Standard BPD 50.8 mm 21w 3d 59% Hadlock OFD 71.3 mm 23w 5d 99% Adrian HC 195.7 mm 21w 5d 68% Hadlock Cerebellum tr 21.7 mm 20w 3d 38% Hill Nuchal fold 4.3 mm AC 167.6 mm 21w 5d 64% Hadlock Femur 35.4 mm 21w 1d 42% Hadlock Humerus 33.7 mm 21w 3d 57% Adrian HC / AC 1.17 EFW 431 g 65% Hadlock EFW (lb) 0 lb EFW (oz) 15 oz EFW by: Hadlock ([id number]) Extended Tibia 29.6 mm 20w6d 39% Adrian Irrigation Technician 6.0 mm CM 4.5 mm 25% Nicolaides Head / Face / Neck Cephalic index 0.71 1% Nicolaides Nasal bone: present Extremities / Bony Struc FL / BPD 0.70 FL / HC 0.18 FL / AC 0.21 Other Structures FHR 141 bpm Anatomy The following structures appear normal: Head/Neck: Cranium. Lateral ventricles. Choroid plexus. Midline falx. Cavum septi pellucidi. Cerebellum. Cisterna magna. Parenchyma. Vermis. Neck. Nuchal fold. Face: Lips. Profile. Nose. Nasal bone. Maxilla. Mandible. Orbits. Heart/Thorax: 4-chamber view. RVOT view. LVOT view. 3-vessel view. 3-vmqvmn-vxdryxl view. Situs. Aortic archview. Bicaval view. Ductal arch view. Interventricular septum. Great vessels. Cardiac position. Cardiac axis. Cardiac size. Cardiac rhythm. Right lung. Left lung. Diaphragm. Abdomen: Abdom. wall. Cord insertion. Stomach. Kidneys. Bladder. Small bowel. Large bowel. Right renal artery. Left renal surya ry. Genitals. Spine: Cervical spine. Thoracic spine. Lumbar spine. Sacral spine. Extremities/Skeleton: Right upper arm. Right forearm. Right hand. Left upper arm. Left forearm. Left hand. Right upperleg. Right lower leg. Right foot. Left upper leg. Left lower leg. Left foot. Maternal Structures --- Uterus Visualized Cervix Visualized Approach - Transvaginal: Cervical length 5.89 cm Right Ovary Not visualized Left Ovary Not visualized Cul de Sac Visualized. No free fluid visualized Impression --- Single viable intrauterine consistent with 21w 1d with an BELKIS of 12/30/2024. anatomic survey did notreveal sonographic evidence of any gross structural abnormalities. Transvaginal cervical length measures 5.89 cm. Recommendations Please see [facility] documentation from today. Subsequent follow up or other follow up as clinically determined by primary OB provider unless otherwise specified by MFM. Results forwarded to ordering provider so they can follow up with the patient as necessary. Angio RUST with or without consult Result Date: 08/20/2024 Narrative: NAME: VALERIA SHERMAN : 1995 SEX: F Accession Number: [id number] ORDERING PHYSICIAN: ALESSANDRO LAWLER REFERRING PHYSICIAN: SANJUANITA NGUYEN Coding Procedures [id number]: Transvaginal Ultrasound (OB) 20435: Ultrasound, uterus, real time with image documentation, and maternal evaluation plus detailed anatomic examination, transabdominal approach;single or first gestation Indication Screening for Anatomic Survey, Screening for cervical length, Supervision of high risk -(Syncope) History --- OB History 2. Para 1 [id number] Current Cell free DNA low risk analysis Maternal Assessment Physical Exam Height 165 cm, 5 ft 5 in. Weight 61 kg, 134 lb. Initial weight 54 kg, 120 lb. BMI 22.30 kg/m . Initial BMI 19.97 kg/m . Weight gain 6 kg, 14 lb Method Transabdominal and transvaginal ultrasound examination Yoo . Number of fetuses: 1 Dating Previous Ultrasound on: 05/11/2024 Type of prior assessment: GA GA at prior assessment date 6 w + 5 d GA by previous U/S 21 w + 1 d BELKIS by previous Ultrasound: 12/30/2024 Ultrasound examination on: 08/20/2024 GA by U/S based upon: AC, BPD, Femur, HC GA by U/S 21 w + 4 d BELIKS by U/S: 12/27/2024 Assigned: based on ultrasound (GA), selected on Assigned GA 21 w + 1 d Assigned BELKIS: 12/30/2024 General Evaluation Cardiac activity Present. [id number] bpm. Presentation: cephalic Placenta: Placental site: anterior, away from cervical os Umbilicalcord: Cord vessels: 3 vessel cord. Insertion site: normal insertion Amniotic fluid: Amount of AF: normal amount Biometry Standard BPD 50.8 mm 21w 3d 59% Hadlock OFD 71.3 mm 23w 5d 99% Adrian HC 195.7 mm 21w 5d 68% Hadlock Cerebellum tr 21.7 mm 20w 3d 38% Hill Nuchal fold 4.3 mm AC 167.6 mm 21w 5d 64% Hadlock Femur 35.4 mm 21w 1d 42% Hadlock Humerus 33.7 mm 21w 3d 57% Adrian HC / AC 1.17 EFW 431 g 65% Hadlock EFW (lb) 0 lb EFW (oz) 15 oz EFW by: Hadlock ([id number]) Extended Tibia 29.6 mm 20w6d 39% Adrian Irrigation Technician 6.0 mm CM 4.5 mm 25% Nicolaides Head / Face / Neck Cephalic index 0.71 1% Nicolaides Nasal bone: present Extremities / Bony Struc FL / BPD 0.70 FL / HC 0.18 FL / AC 0.21 Other Structures FHR 141 bpm Anatomy The following structures appear normal: Head/Neck: Cranium. Lateral ventricles. Choroid plexus. Midline falx. Cavum septi pellucidi. Cerebellum. Cisterna magna. Parenchyma. Vermis. Neck. Nuchal fold. Face: Lips. Profile. Nose. Nasal bone. Maxilla. Mandible. Orbits. Heart/Thorax: 4-chamber view. RVOT view. LVOT view. 3-vessel view. 5-moykiy-zucwugj view. Situs. Aortic archview. Bicaval view. Ductal arch view. Interventricular septum. Great vessels. Cardiac position. Cardiac axis. Cardiac size. Cardiac rhythm. Right lung. Left lung. Diaphragm. Abdomen: Abdom. wall. Cord insertion. Stomach. Kidneys. Bladder. Small bowel. Large bowel. Right renal artery. Left renal surya ry. Genitals. Spine: Cervical spine. Thoracic spine. Lumbar spine. Sacral spine. Extremities/Skeleton: Right upper arm. Right forearm. Right hand. Left upper arm. Left forearm. Left hand. Right upperleg. Right lower leg. Right foot. Left upper leg. Left lower leg. Left foot. Maternal Structures --- Uterus Visualized Cervix Visualized Approach - Transvaginal: Cervical length 5.89 cm Right Ovary Not visualized Left Ovary Not visualized Cul de Sac Visualized. No free fluid visualized Impression --- Single viable intrauterine consistent with 21w 1d with an BELKIS of 12/30/2024. anatomic survey did notreveal sonographic evidence of any gross structural abnormalities. Transvaginal cervical length measures 5.89 cm. Recommendations Please see [facility] documentation from today. Subsequent follow up or other follow up as clinically determined by primary OB provider unless otherwise specified by [facility]. Results forwarded to ordering provider so they can follow up with the patient as necessary. Assessment and Plan: Delicia was seen today for new patient. Diagnoses and all orders for this visit: Migraine with aura and without status migrainosus, not intractable - MR brain without contrast; Future - EEG; Future [facility] [place] [place] - MR brain without contrast; Future Migraine without aura and without status migrainosus, not intractable - EEG; Future Second trimester - [facility] [place], [place] Hx of migraine during - [facility] [place] Visual disturbances [facility] [place] [place] The patient is a right-handed female with No significant past medical history presents with the Neurology Clinic today for evaluation of recurrent syncope and migraine-type headaches. She is currently , at the end of the 2nd trimester. BELKIS in early December 2024. Current neurological examination is nonfocal. Clinical impression: Migraine with and without aura, seemed to worsen significantly during the 1st trimester, perhaps secondary to increased stress and high blood pressure. The patient reports blood pressure has been normal on further monitoring. At this point the patient does not appear to be having frequent nor severe headaches, do not believe there is any need or indication for adding a preventive medicine. Has been advised to try Tylenol 500 to 1000 mg dose for acute relief from severe headaches, limit to 3 g per day. Has been advised to inform me if her headaches worsen, in which case a preventive medicine and/or a better abortive medicine could be prescribed for her. 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 The patient has been advised to keep herself well hydrated throughout the day, consider wearing compression stockings when anticipating prolonged standing or sitting, advised to make orthostatic transitions slowly, avoid conditions such as overheating/dehydration. We willalso need a cardiac workup to rule out structural cardiac disease, plans to have a transthoracic echocardiogram soon. Can also consider remote cardiac monitoring for arrhythmias. From a neurological perspective, the main differential to be ruled out would be underlying seizure disorder. Get MRI brain without contrast, routine EEG for further evaluation. Continue supportive care. Regular follow-up with PCP and other specialists. Return to clinic, to bedecided. Problem List Cardiovascular and Mediastinum Recurrent syncope Relevant Orders MR brain without contrast Migraine with aura and without status migrainosus, not intractable - Primary Relevant Orders MR brain without contrast EEG Migraine without aura and without status migrainosus, not intractable Relevant Orders EEG Other Second trimester Visual disturbances Follow-up: To be decided. Lizz Putnam MD Vascular Neurologist [facility] Neurology ([facility]) Total time spent was 45 minutes: Preparing to see the patient (e.g., review of tests) Obtaining and/or reviewing separately obtained history Performing a medically appropriate examination and/or evaluation Counseling and educating the patient/family/caregiver Documenting clinical information in the electronic or other health record Independently interpreting results (not separately reported) and communicating results to the patient/family/caregiver Care coordination (not separately reported) Important Notice: This note was created with the assistance of a speech recognition program. While intending to generate a timely document that accurately reflects the content of the encounter, no guarantee can be provided that every grammatical or spelling mistake has been or will be identified or corrected. Thank you for your understanding. documented in this encounterWashington County Tuberculosis HospitalNozomi Photonics [id number] History of Present illness Narrative* Arleth Catalan RN - 08/20/2024 2:30 PM EDT Headache/epigastric pain/blurry vision/swelling? Cramping/contractions? denies Spotting/vaginal bleeding? denies Loss or gush of fluid like your water may have broken? denies Do you have cats at home? Do you change the litter box (reason: risk of toxoplasmosis)? Genetic testing done this here or other office? yes, [employer] and [facility] done Have you been seen here at [facility] in a previous ? Recent ER visits or hospitalizations? Bring blood sugar log or meter with you today? (Please bring them with you for every visit at [facility]) Flu vaccine (Dec-April)? Any concerns that you would like me to mention to the provider today? * Alessandro Lawler MD - 08/20/2024 2:30 PM EDT Video Visit via Real-time Synchronous Audiovisual Provider Location: [facility]- [facility]ICINE AT [address] [phone] Patient Location: [place] Patient Location Training Analyst: None Video Visit Consent Statement: I discussed risks, benefits, and alternatives of a real-time synchronous audiovisual consultation with the patient (and any accompanying persons) including the risks that the patient's personal health details and medical records will be discussed over real-time, synchronous, interactive video/audio/telecommunication technology, the visit will not be recorded withoutthe express consent of both the provider and the patient, and that there are some limitations compared to [id number] evaluations. We elected to proceed. REASON FOR CONSULTATION: episode of syncope HISTORY OF PRESENT ILLNESS: Delicia Shaw is a pleasant 29 y.o. at 21w1d due on Estimated Date of Delivery: 12/30/24. complicated by: Syncopal episode at 16wk with history of recurrent episodes of syncope. See below. History of macrocosmic infant, G1 4082g Patient reports a 5 weeks ago roughly 16 weeks gestation she was standing in line at [employer] for an extended period of time behind a malodorous customer, was feeling queasy and then as she moved away to distance herself experienced presyncopal symptoms including lightheadedness and dizziness whichwas then followed by loss of consciousness. She was able to anticipate this loss of consciousness and did not fall directly on her abdomen. Prior to this episode, she had a similar episode in Februaryof 2024 outside of where she experienced presyncopal episodes followed by syncope while she was sitting on the toilet during a viral episode with nausea/emesis and diarrhea. Other episodes of syncope occurred in the fall of 2023. She reports that the majority of episodes occur when she israpidly transitioning from sitting to standing and episodes frequently occurred on the toilet. Onceshe regains consciousness, she is alert and oriented. She does not have a family history of congenital heart disease. She does not have a personal history of underlying cardiac disease. She denies any palpitations or skipped beats or arrhythmias. She denies any episodes of chest pain or shortness of breath. Today, the patient is doing well. She denies contractions, vaginal bleeding, leaking of fluid. She reports good movement. Aneuploidy screening: low risk cell free DNA for trisomy 13, 18, 21, monosomy X, triploidy and 22q11 deletion (Cheryl) Carrier screening: Negative for 14/14 diseases ([employer]) Baby Boy: Rosy Vega have reviewed the pertinent available patient records including but not limited to notes, labs and images. PAST OBSTETRICAL HISTORY: OB History Para Term AB Living 2 1 1 1 SAB IAB Ectopic Multiple Live Births 1 # Outcome Date GA Lbr Ervin/2nd Weight Sex Type Anes PTL Lv 2 Current 1 Term 11/06/12 41w0d 4.082 kg F Vag-Spont EPI N UNRULY MEDICAL HISTORY: Past Medical History: Diagnosis Date Adult ADHD Anxiety Eczema SURGICAL HISTORY: Past Surgical History: Procedure Laterality Date APPENDECTOMY 2023 FAMILY/GENETIC HISTORY: Family History Problem Relation Age of Onset Lupus Mother Migraines Mother Lupus Sister SOCIAL HISTORY: Social History Tobacco Use Smoking status: Never Smokeless tobacco: Never Vaping Use Vaping status: Former Quit date: 12/27/2023 Substances: Nicotine Substance Use Topics Alcohol use: Not Currently Drug use: Not Currently Types: Marijuana ALLERGIES: No Known Allergies CURRENT MEDICATIONS: Current Outpatient Medications: 95-[id number]-[id number] 9-dha 31 mg iron- 1 mg-200 mg capsule, Take 1 capsule by mouth in the morning., Disp: 90 capsule, Rfl: 3 RECENT HOSPITALIZATION: none HABITS: Patient activity no restrictions, diet no restrictions REVIEW OF SYSTEMS: Head and Neck: Negative for any dizziness and headaches. Cardiovascular and Respiratory System: Denies any chest pain, shortness of breath, and coughing. Abdominal and System: Denies any abdominal pain, nausea, vomiting, vaginal bleeding, and vaginal discharge REVIEW OF TESTS AND ULTRASOUND REPORTS: Referral records and epic chart were reviewed Pertinent Ultrasound findings are see formal ultrasound report. PHYSICAL EXAMINATION: BP 98/64 Wt 60.8 kg (134 lb) LMP (LMP Unknown) BMI 22.30 kg/m Well-appearing in no distress. Respirations not labored, speaking comfortably in full sentences Gravid abdomen OVERALL ASSESSMENT -Delicia Shaw is a pleasant 29 y.o. at 21w1d -syncopal episodes, suspected reflex syncope -history of macrosomic infant COUNSELING/MEDICAL DECISION-MAKING We reviewed that based on her presenting symptoms her syncopal episodes with transient loss of consciousness is likely secondary to reflex syncope. While this is typically a benign condition that canresult in complications in especially if if it results in maternal fall and placental abruption. If symptoms progress in terms of frequency or severity or they are associated with other cardiac symptoms including palpitations, skipped beats, chest pain or shortness of breath, patient was recommended to present for emergent evaluation. Underlying structural cardiac disease can be seen in patients with syncope and arrhythmias can manifest with a first-time . Those with underlying structural heart disease or history of arrhythmias are highest risk of developing arrhythmias during . The exact mechanism of increased arrhythmia frequency during is likely multifactorial, due to hemodynamic changes (40-60% blood volume increased, decreases timing vascular resistance, increased heart rate and cardiac output), along with hormonal and autonomic changes. In particular, intravascular volume increases with resulting increase in atrial and ventricular myocardial stretch could contribute to arrhythmia saray. Empiric lifestyle modification with aggressive hydration (~3L/ day) and compression stockings help alleviate symptoms. With regard to labor and delivery, symptoms potentially worsen given tachycardia and hemodynamic instability. Early utilization of regional epidural to to decrease pain and avoid blood pressure/heartrate changes in response to pain is recommended, especially since pain is itself a trigger for vasovagal syncope. SUMMARY/RECOMMENDATION: encourage hydration and compression stockings Cardiology referral placed, appreciate input Consider early epidural in labor to minimize triggering syncopal episodes and manage the increased heart rate/volume shifts of labor/delivery Anticipate term vaginal delivery at local hospital, reserve for usual obstetrical indications DISPOSITION: At this point the patient is in complete care of her acoustical installer. Patient was not scheduled back for further MFM office visits. If future indication arises, please refer back. Thank you for allowing me to participate in the care of Delicia Shaw. If there any questions please do not hesitate to contact us. Alessandro Lawler MD Maternal- Medicine [facility] [address] [facility] 1[address] [place] [address] [facility], the CDC, and other organizations representing maternal and public health professionals recommend that , , and lactating people and those considering receive the COVID-19 vaccination. Vaccination is the best method to reduce maternal and complications of SARS-CoV-2 infection. This document was created with [employer] technology. Though I make every effort to review the dictation as it is transcribed, on occasion the spoken word can be misinterpreted by the technology leading to inappropriate words, phrases, or sentences. This note is addressed to the requesting provider as a consultation for clinical guidance. Specificmedical abbreviations are occasionally used and those are generally approved by the [place]?Board of?Obstetrics and?Gynecology?as well as?Simona bowser abbreviations. The above plan of care was based solely on the diagnoses for which a consultation was requested. ?More frequent testing may be indicated based on her other medical/obstetrical conditions. The management of other or medical conditions is beyond the scope of requested consultation and will c ontinue to be followed by the primary acoustical installer or primary care provider. Note to patient: The Century Cures Act makes medical notes like these available to patients inthe interest of transparency. However, be advised this is a medical document. It is intended as peer to peer communication. It is written in medical language and may contain abbreviations or verbiagethat are unfamiliar. It may appear blunt or direct. Medical documents are intended to carry relevant information, facts as evident, and the clinical opinion of the practitioner. documented in this encounterCincinnati [facility]06-25-[facility] History of Present illness Narrative* YUNG Chris - 08/19/2024 1:45 PM EDT Routine OB visit 29 y.o. at 21w0d. She denies cramping or abdominal pain. She denies vaginal bleeding or vaginal loss of fluid. Tolerating regular diet without emesis. She reports movements are present.Patient is planning to breast feed . She denies hx breast surgery. Patient has appt with neuro on 09/08/24. 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 Survey US scheduled for tomorrow with MFM consult. 2. Counseled regarding safe use of safety belt in , importance of exercise and good nutrition, avoidance of supine position and reviewed danger signs. 3. Answered all questions. 4. Educational information given. 5. Return 4 wks. YUNG Chris 08/19/24 1359 documented in this encounterCincinnati [facility]06-04-2025 History of Present illness Narrative* YUNG Chris - 07/29/2024 2:00 PM EDT Delicia Shaw is a 29 y.o.female. Patient is 18 weeks . She presents for testing for Mycoplasma due to partner being tested positive. Pt reports some discharge. Patient tested positive for BV in April but never picked up the flagyl that was sent. Patient has MFM appt scheduled 08/20/24 with a consult and is scheduled with neuro on 09/08/24. OB History 2 Para 1 Term 1 AB Living 1 SAB IAB Ectopic Multiple Live Births 1 MEDICAL HX Past Medical History: Diagnosis Date Adult ADHD Anxiety Eczema Migraine SURGICAL HX Past Surgical History: Procedure Laterality Date APPENDECTOMY 2023 FAMILY HX Family History Problem Relation Age of Onset Lupus Mother Migraines Mother Lupus Sister MEDS Current Outpatient Medications Medication Sig Dispense Refill metroNIDAZOLE (FLAGYL) 500 mg tablet Take 1 tablet (500 mg total) by mouth in the morning and 1 tablet (500 mg total) before bedtime. Do all this for 7 days. 14 tablet 0 29-[id number]-wzvoiu 9-dha 31 mg iron- 1 mg-200 mg capsule Take 1 capsule by mouth in the morning. 90 capsule 3 No current facility-administered medications for this visit. ALLERGIES No Known Allergies Review of Systems Constitutional: Negative. Respiratory: Negative. Cardiovascular: Negative. Gastrointestinal: Negative. Genitourinary: Positive for vaginal discharge. Negative for pelvic pain. Neurological: Negative. Psychiatric/Behavioral: Negative. Objective BP 92/68 Ht 165.1 cm (5' 5 ) Wt 61.1 kg (134 lb 12.8 oz) LMP (LMP Unknown) BMI 22.43 kg/m Physical Exam Vitals and nursing note reviewed. Constitutional: Appearance: Normal appearance. Cardiovascular: Rate and Rhythm: Normal rate and regular rhythm. Pulses: Normal pulses. Heart sounds: Normal heart sounds. Pulmonary: Effort: Pulmonary effort is normal. Breath sounds: Normal breath sounds. Musculoskeletal: General: Normal range of motion. Skin: General: Skin is warm and dry. Neurological: Mental Status: She is alert and oriented to person, place, and time. Psychiatric: Mood and Affect: Mood normal. Speech: Speech normal. Behavior: Behavior normal. Thought Content: Thought content normal. Judgment: Judgment normal. Assessment/Plan: Delicia was seen today for std screening. Diagnoses and all orders for this visit: Screening for STD (sexually transmitted disease) - Urogenital Ureaplasma and Mycoplasma Species by PCR: Urine BV (bacterial vaginosis) - metroNIDAZOLE (FLAGYL) 500 mg tablet; Take 1 tablet (500 mg total) by mouth in the morning and 1 tablet (500 mg total) before bedtime. Do all this for 7 days. Patient encouraged to pick remover flagyl and take as directed. Abstain from intercourse until micoplasma results are back and s/o completes treatment. All questions answered. Educational material provided through [employer]. RTO for next scheduled visit or sooner as needed. Note provided for patient that we do not want her driving at this time d/t her passing out. YESY BOUCHER, QUALITY FACILITATOR Sanjuanita Nguyen, BASKET MACHINE OPERATOR-AND DRYING SUPERVISOR COOKING CASING Sanjuanita Nguyen APRN-MARCUS 07/29/24 1420 documented in this encounterCincinnati [facility]05-22-2025 Miscellaneous Notes* Telephone Encounter - Patricia Joaquin - 07/16/2024 8:58 AM EDT Received new patient referral. Please call patient to schedule a new patient appointment for Second trimester Z86.69, Z87.59 (ICD-10-CM) - Hx of migraine during H53.9 (ICD-10-CM) - Visual disturbances R55 (ICD-10-CM) - Syncope and collapse IS THIS DUE TO AN ACCIDENT? IS THIS WORKER'S COMP? PLEASE VERIFY IF THIS IS WORKERS COMP AND DOCUMENT (We do not accept any new workers comp cases) WHAT INSURANCE? HAVE YOU EVER BEEN SEEN BY A NEUROLOGIST BEFORE? * Telephone Encounter - Yamel Zuniga - 07/16/2024 8:58 AM EDT 1st attempt: Hay Chopper attempted to contact patient and offer to schedule a new patient appointment with our clinic as we have received their new patient referral but was unable to reach them. Hay Chopper received an automated message stating the following: patient's voicemail box is not set up. Hay Chopper attempted twice to call and received the same message. * Telephone Encounter - Ingrid Shane - 07/16/2024 8:58 AM EDT Please ask the following questions to the new patient that you are schedulin. IS THIS DUE TO AN ACCIDENT? -No 2. IS THIS WORKER'S COMP? PLEASE VERIFY IF THIS IS WORKERS COMP AND DOCUMENT (We do not accept any new workers comp cases) -No 3. WHAT INSURANCE? -[place] 4. HAVE YOU EVER BEEN SEEN BY A NEUROLOGIST BEFORE? IF YES, WHO AND WHEN? IS THIS A SECOND OPINION? -No 5. ANY CHANCE OF NOW OR BEFORE YOUR APPOINTMENT? -Yes , Second trimester 6. OFFERED LIO FOR SOONER APPOINTMENT? - No 7. PATIENT IS SCHEDULED ON/WITH: -Dr Putnam 09/08/24 at 10:00 8. WHO CALLED TO SCHEDULE APPOINTMENT? -patient documented in this encounterCincinnati [facility]05-22-2025 Telephone encounter Note* Telephone Encounter - Patricia Nuñez - 07/16/2024 8:58 AM EDT Received new patient referral. Please call patient to schedule a new patient appointment for Second trimester Z86.69, Z87.59 (ICD-10-CM) - Hx of migraine during H53.9 (ICD-10-CM) - Visual disturbances R55 (ICD-10-CM) - Syncope and collapse IS THIS DUE TO AN ACCIDENT? IS THIS WORKER'S COMP? PLEASE VERIFY IF THIS IS WORKERS COMP AND DOCUMENT (We do not accept any new workers comp cases) WHAT INSURANCE? HAVE YOU EVER BEEN SEEN BY A NEUROLOGIST BEFORE? [facility] [employer] [id number] Telephone encounter Note* Telephone Encounter - Yamel Zuniga - 07/16/2024 8:58 AM EDT 1st attempt: Hay Chopper attempted to contact patient and offer to schedule a new patient appointment with our clinic as we have received their new patient referral but was unable to reach them. Hay Chopper received an automated message stating the following: patient's voicemail box is not set up. Hay Chopper attempted twice to call and received the same message. [facility] CenterWorkerBee Virtual [id number] Telephone encounter Note* Telephone Encounter - Ingrid Lynn - 07/16/2024 8:58 AM EDT Please ask the following questions to the new patient that you are schedulin. IS THIS DUE TO AN ACCIDENT? -No 2. IS THIS WORKER'S COMP? PLEASE VERIFY IF THIS IS WORKERS COMP AND DOCUMENT (We do not accept any new workers comp cases) -No 3. WHAT INSURANCE? -[place] [place] MEDICA[place] 4. HAVE YOU EVER BEEN SEEN BY A NEUROLOGIST BEFORE? IF YES, WHO AND WHEN? IS THIS A SECOND OPINION? -No 5. ANY CHANCE OF NOW OR BEFORE YOUR APPOINTMENT? -Yes , Second trimester 6. OFFERED LIO FOR SOONER APPOINTMENT? - No 7. PATIENT IS SCHEDULED ON/WITH: -Dr Putnam 09/08/24 at 10:00 8. WHO CALLED TO SCHEDULE APPOINTMENT? [facility] History of Present illness Narrative* YUNG Chris - 07/15/2024 1:00 PM EDT Routine OB visit 29 y.o. at 16w0d. She denies cramping or abdominal pain. She denies vaginal bleeding or vaginal loss of fluid. Tolerating regular diet without emesis. Patient reports worsening headaches with visual disturbances. Tylenol helps sometimes. Patient alsoc/o passing out at [employer] on Saturday. She said she felt weird, saw spots and just went to the ground. She did not injure herself. Vitals: 07/15/24 1257 BP: 112/60 Weight: 61 kg (134 lb 6.4 oz) complicated by: Patient Active Problem List Diagnosis Back pain affecting History of back injury Bacterial vaginosis in Chronic migraine with aura Syncope 1. Pt completed NIPS (low risk / male) and carrier screening (negative ) 2. Discussed option for MSAFP between 16-20 weeks. Order placed. 3. 22 wk Survey US ordered with consult. 4. Patient encouraged to increase hydration and eat 6 small healthy meals per day. 5. Encouraged patient not to drive at this time. 6. STAT neuro referral placed. 7. danger signs reviewed. 8. Educational information given. 9. Questions answered. 10. Return 4 wks. YUNG Chris 07/15/24 1332 documented in this encounterCincinnati [facility]05-21-2025 Instructions* Patient Instructions* Sanjuanita Nguyen, BASKET MACHINE OPERATOR-AND DRYING SUPERVISOR COOKING CASING - 07/15/2024 1:00 PM EDT What is circumcision? Circumcision is surgery to remove the skin that covers the tip of the penis, called the foreskin .Circumcision is usually done when a baby boy is between 1 and 10 days old. It is more common in some parts of the world than others. Circumcision is also a common tradition in some religions. Should I have my baby circumcised? There is no easy answer. Different people feel differently about this decision. Circumcision has some benefits. But it also has some risks. After talking with your baby's doctor, you will have to decide for yourself what is right for your family. What are the benefits of circumcision? Circumcised boys seem to have slightly lower rates of: ?Urinary tract infections ?Swelling of the opening at the tip of the penis As adults, circumcised males seem to have slightly lower rates of: ?Urinary tract infections ?Swelling of the opening at the tip of the penis ?Penis cancer ?HIV and other infections you can catch during sex ?Cervical cancer in their sex partners Even so, the risks of these problems are small, even in people who have not been circumcised. Also,people who are not circumcised can lower these extra risks by: ?Cleaning their penis well ?Using condoms during sex What are the risks of circumcision? Risks include: ?Bleeding or infection from the surgery ?Damage to the penis ?A chance that the doctor will cut off too much or not enough of the foreskin ?A chance that sex won't feel as good later in life Only about 1 out of every 200 circumcisions leads to problems. Also, some health insurances won't pay for circumcision. How is circumcision done in babies? The baby will get medicine so they don't feel pain. This might be a cream on their skin or a shot into the base of their penis. The doctor will clean the baby's penis well. Then, they will use special tools to cut off the foreskin. The doctor will wrap a gauze bandage around the baby's penis. If you have your baby circumcised, the doctor or nurse will give you instructions on how to care for the baby after surgery. Follow those instructions carefully. * Attachments The following attachments cannot be sent through Care Everywhere. * The Fourth Month (Austrian) * Quad Test (Austrian) documented in this encounterCincinnati [facility]04-28-2025 Miscellaneous Notes* Telephone Encounter - Yesy Boucher CMA - 06/22/2024 4:23 PM EDT Called and spoke to pt and gave her the results of her Cheryl carrier screen documented in this encounterCincinnati [facility]04-28-2025 Telephone encounter Note* Telephone Encounter - Yesy Boucher CMA - 06/22/2024 4:23 PM EDT Called and spoke to pt and gave her the results of her Cheryl carrier screen [facility] History of Present illness Narrative* Yesy Boucher CMA - 06/18/2024 4:24 PM EDT Called and gave pt results of Cheryl NIPS testing documented in this encounterCincinnati [facility]rin[facility]04-23-2025 History of Present illness Narrative* YUNG Chris - 06/17/2024 1:00 PM EDT Routine OB visit 29 y.o. at 12w0d. She denies cramping or abdominal pain. She denies vaginal bleeding or vaginal loss of fluid. Tolerating regular diet without emesis. Patient reports frequent headaches relieved somewhat with tylenol and occasional spots in her vision. Vitals: 06/17/24 1258 BP: 130/68 Weight: 59 kg (130 lb) complicated by: Patient Active Problem List Diagnosis Back pain affecting History of back injury Bacterial vaginosis in 1. Reviewed early danger signs. 2. NIPS and carrier screening pending. 3. Baseline labs ordered. 4. Educational information given. 5. Questions answered. 6. Return 4 weeks. YUNG Chris 06/17/24 1321 documented in this encounterCincinnati [facility]03-26-2025 History of Present illness Narrative* YUNG Chris - 05/20/2024 1:30 PM EDT Initial visit 29 y.o. at 8w0d. Telephone OB intake and video visit with provider done on 05/05/24. Patientdenies cramping or abdominal pain. She denies vaginal bleeding. Tolerating regular diet without emesis. She has a follow up ultrasound scheduled for 05/28/24. Patient reports having a lower back injuryabout 10 years ago and states discomfort has increased with . Vitals: 05/20/24 1351 BP: 112/58 Weight: 57.2 kg (126 lb) complicated by: Patient Active Problem List Diagnosis Back pain affecting History of back injury 1. Reviewed labs, u/s, EDC, and early danger signs. 2. Discussed genetic testing. Patient desires all. 3. physical complete and pap / cultures collected. 4. Physical therapy referral sent per patient request. 5. Patient had a flu shot in the fall of 2023. 6. Educational information given. 7. Questions answered. 8. Return 3 weeks for genetic testing and 4 weeks for visit. YUNG Chris 05/20/24 1404 documented in this encounterCincinnati [facility]rin[facility]03-20-2025 Miscellaneous Notes* Telephone Encounter - Larissa Fallon MA - 05/14/2024 12:13 PM EDT Pt called stating that her pharmacy didn't have the unisom. I advised her that should could purchase over the counter. Pt. Stated that wouldn't work for her and [facility] [place] [facility]. Please advise, thank you! - Larissa Fallon MA 05/14/24 12:15 PM * Telephone Encounter - YUNG Chris - 05/14/2024 12:13 PM EDT [facility] [place] * Telephone Encounter - Larissa Fallon MA - 05/14/2024 12:13 PM EDT PT. Was called and notified of info RX info. - Larissa Fallon MA 05/14/24 1:19 PM documented in this encounterCincinnati [facility]rin[facility] Hospital03-20-2025 Telephone encounter Note* Telephone Encounter - Larissa Fallon MA - 05/14/2024 12:13 PM EDT Pt called stating that her pharmacy didn't have the unisom. I advised her that should could purchase over the counter. Pt. Stated that wouldn't work for her and that [facility] [place] [facility]. Please advise, thank you! - Larissa Fallon MA 05/14/24 12:15 PM [facility] Telephone encounter Note* Telephone Encounter - YUNG Chris - 05/14/2024 12:13 PM EDT [facility] [place] [facility]03-[facility] Telephone encounter Note* Telephone Encounter - Larissa Fallon MA - 05/14/2024 12:13 PM EDT PT. Was called and notified of info RX info. - Larissa Fallon MA 05/14/24 1:19 PM [facility]03-[facility] History of Present illness Narrative* YUNG Chris - 05/05/2024 9:15 AM EDT OB Intake Video Visit 29 y.o. new patient at unknown gestation contacted through [employer] for OB intake video visit. verified and verbal consent obtained for video visit. Patient and provider both currently located in the [facility]. This was an unplanned but desired . FOB involved (Mike). Patient denies vaginal bleeding. Denies nausea / vomiting. Obstetrical, Medical, Surgical, Social & Family history reviewed. Reviewed EDC and that it could change based upon ultrasound. Problem list updated. Negative history of GDM, PreE, delivery, short cervix, previous , HSV, PPH, shoulder dystocia, substance abuse, IUGR, macrosomia, severe anemia, or 4th degree lacerations. No hx uterine surgeries or LEEP. Risk factors include: n/a Discussed testing. Pt desires all. The patient reports that there is not domestic violence in her life. Discussed exercise, diet and weight gain. Current BMI 19. Discussed smoking, alcohol use and drug use. Patient denies all. Discussed early danger signs and when/how to notify provider. Reviewed CNM / AND DRYING SUPERVISOR COOKING CASING care, collaboration & referral to PARTICLEBOARD FACTORY WORKER as needed. Reviewed course of care. Discussed CDC recommendation for exclusive for the first 6 months. Patient has been covid vaccinated. Discussed recommendations in . RX for vitamin sent. All questions answered. Educational materials provided through [employer]. Ultrasound and labs ordered. Appointment scheduled for initial OB visit with provider on 05/20/24. YUNG Chris 05/05/24 0958 * Eula Sanchez LPN - 05/05/2024 9:15 AM EDT [id number]. [id number]. Pt desires genetic testing. Last pap was 1 year in [place]. Pt needs PNV script. Unplanned -pt is trying to adjust. documented in this encounterCincinnati [facility] Hospital10-30-2024 History of Present illness Narrative* YUNG [place] - 12/25/2023 9:00 AM EDT Images from the original note were not included. Subjective Delicia Shaw is a 28 y.o. female status post laparoscopic appendectomy on 12/12/2023. Shedenies any further right lower quadrant pain. She is feeling pretty good. Her only complaint is that she is still having a little bit of pain around the left lower quadrant incision. She is not taking anything for the pain. It is worse with exertion. It is slightly swollen. She denies fever and chills. She denies drainage. She is a single mother. Objective There were no vitals filed for this visit. Physical Exam Constitutional: General: She is not in acute distress. Appearance: Normal appearance. She is not ill-appearing. Abdominal: General: There is no distension. Palpations: Abdomen is soft. Tenderness: There is no abdominal tenderness. There is no guarding. Skin: General: Skin is warm and dry. Findings: No bruising or erythema. Comments: Lap sites clean, dry and intact. No signs of infection. Assessment Delicia Shaw is a 28 y.o.female postop laparoscopic appendectomy. Plan Final pathology discussed and given to patient in office today. Reassurance provided that pain should continue to get better and completely resolve with time. Follow-up p.r.n.. Status post laparoscopic appendectomy [Z90.49] SOFÍA BOUCHER APRN-MARCUS [facility] [place] This note was created with the assistance of a speech recognition program. While intending to generate a timely document that accurately reflects the content of the visit, no guarantee can be provided that every grammatical or spelling mistake has been or will be identified or corrected. Thank you for your understanding. YUNG [place] 12/25/23 0922 documented in this encounterCincinnati Shrin[facility] Hospital10-17-2024 History of Present illness Narrative* Ramiro Huntley, ORGANIC LAB WORKER - 12/12/2023 1:30 PM EDT Images from the original note were not included. Subjective Patient ID: Delicia Shaw is a 28 y.o. female who presents for Abdominal Pain. Abdominal Pain Patient complains of abdominal pain. The patient is experiencing periumbilical pain --on right sidewithout radiation. Onset was 4 days ago. Symptoms have been gradually worsening. Aggravating factors: pressure on abd, standing up straight. Alleviating factors: none. Associated symptoms: nausea --ptstates last week she had some loose stools with some mucous present that has resolved now she just h as the abd pain The patient denies belching, constipation, dysuria, and vomiting. Abdominal Pain Current Outpatient Medications on File Prior to Visit Medication Sig Dispense Refill atomoxetine (Strattera) 25 MG capsule Take 1 capsule (25 mg) by mouth in the morning and 1 capsule (25 mg) before bedtime. Swallow capsule whole; do not open. If opened accidentally, do not touch eyes; wash hands immediately (product is an eye irritant).. 60 capsule 2 [DISCONTINUED] cephalexin (Keflex) 500 MG capsule TAKE 1 CAPSULE BY MOUTH EVERY 8 HOURS FOR 7 DAYS [DISCONTINUED] ketorolac (Toradol) 10 MG tablet TAKE 1 TABLET BY MOUTH 3 TIMES A DAY NEEDED FOR PAIN [DISCONTINUED] ondansetron ODT (Zofran-ODT) 4 MG disintegrating tablet DISSOLVE 1 TABLET IN MOUTH EVERY 6 HOURS NEEDED FOR NAUSEA AND VOMITING No current facility-administered medications on file prior to visit. I have reviewed and reconciled the history and medication list with the patient today. No Known Allergies Social History Tobacco Use Smoking status: Never Smokeless tobacco: Current Family History Problem Relation Name Age of Onset Lupus Mother History reviewed. No pertinent past medical history. History reviewed. No pertinent surgical history. Visit Vitals Ht 5' 5.5 BMI 19.34 kg/m Smoking Status Never BSA 1.57 m Review of Systems Constitutional: Positive for activity change and hot flashes. HENT: Negative. Eyes: Negative. Respiratory: Negative. Cardiovascular: Negative. Gastrointestinal: Positive for abdominal pain. Right side abdominal pain, near umbilicus with pain radiating to her back Musculoskeletal: Not able to stand upright dt the abd pain Skin: Positive for pallor. Neurological: Negative. Psychiatric/Behavioral: Negative. Hematological: Negative. Allergic/Immunologic: Negative. Objective Physical Exam Constitutional: Appearance: She is ill-appearing. HENT: Head: Normocephalic and atraumatic. Eyes: Extraocular Movements: Extraocular movements intact. Conjunctiva/sclera: Conjunctivae normal. Pupils: Pupils are equal, round, and reactive to light. Cardiovascular: Rate and Rhythm: Normal rate and regular rhythm. Pulses: Normal pulses. Heart sounds: Normal heart sounds. Abdominal: Tenderness: There is abdominal tenderness. There is guarding. Comments: Right side abdominal pain at Mcburney's point, radiating to the back, pain with movement,cannot stand upright dt pain, + rebound tenderness Musculoskeletal: General: Normal range of motion. Cervical back: Normal range of motion and neck supple. Skin: General: Skin is warm and dry. Neurological: General: No focal deficit present. Mental Status: She is alert and oriented to person, place, and time. Psychiatric: Mood and Affect: Mood normal. Behavior: Behavior normal. Thought Content: Thought content normal. Judgment: Judgment normal. Assessment/Plan 1. Lower abdominal pain (Primary) The pt has pain at Mcburney's point. Discussed possible appendicitis. She is sent to the ER for evaluation today. No follow-ups on file. documented in this [facility]10-17-2024 Instructions* Patient Instructions* Ramiro Huntley NP - 12/12/2023 1:30 PM EDT Sent to the ER for possible appendicitis. documented in this encounterParkland Health [id number] NotePatient Education Materials Name: Delicia Shaw Current Date: 04/02/2022 11:25:10 Lesly/New_ : 1995 The following sheet(s) are the Patient Education Leaflets for Delicia Shaw Mineral Resources Inspector The Range of Pap Test Results When your Pap test is sent to the lab, the lab studies your cell samples and reports any abnormal cell changes. Your healthcare provider can discuss these changes with you. In some cases, an abnormalPap test is due to an infection. More [...] These glandular cells are taller and not asflat as the cells on the surface of [...] Testing for HPV and other sexually transmitted infections(STIs) may be needed. Treatment may be required. [...] on the test results and other factors, suchas age and health history. (Reported as squamous cell carcinoma, endocervical adenocarcinoma in situ, or adenocarcinoma.) ? [id number] [employer] [place] [address]. All rights reserved. This information is not [...] breast self-examination (BSE). These experts include the [place] [employer], the U.S. Preventive ServicesTask Force, and the [place] [employer]nec[employer]. Some experts [...] have: ? Nipple discharg (more content not included)...[facility] Evaluation note* Diagnosis Lower abdominal pain- Primary Abdominal pain, other specified site [facility] noteNo assessment information availableThe [facility] Work Phone: Evaluation note* Diagnosis Status post laparoscopic appendectomy- Primary Other postprocedural status Postoperative pain Other acute postoperative pain [facility] Diagnosis Status post laparoscopic appendectomy- Primary Other postprocedural status documented [facility] Diagnosis First trimester - Primary state, incidental documented [facility] Diagnosis care, first trimester- Primary [facility]* Diagnosis Nausea/vomiting in - Primary Unspecified vomiting of , unspecified as to episode of care [facility] Diagnosis Nausea/vomiting in Unspecified vomiting of , unspecified as to episode of care [facility]* Diagnosis Cervical smear, as part of routine gynecological examination- Primary Screening for malignant neoplasm of the cervix care, first trimester Acute vaginitis Unspecified vaginitis and vulvovaginitis Back pain affecting in first trimester History of back injury Back pain affecting in first trimester History of back injury [facility] Diagnosis BV (bacterial vaginosis)- Primary Unspecified vaginitis and vulvovaginitis Back pain affecting in first trimester History of back injury [facility] Diagnosis headache in first trimester- Primary care, first trimester Visual disturbance Unspecified visual disturbance care, first trimester [facility] Diagnosis care, first trimester- Primary care, first trimester [facility] Diagnosis care, first trimester care, first trimester [facility] Diagnosis Second trimester - Primary state, incidental Hx of migraine during Visual disturbances Unspecified visual disturbance Syncope and collapse care, first trimester [facility]* Diagnosis Screening for STD (sexually transmitted disease)- Primary BV (bacterial vaginosis) Unspecified vaginitis and vulvovaginitis care, first trimester [facility]* Diagnosis 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 care, first trimester [facility]* Diagnosis care, second trimester- Primary care, first trimester documented [facility]* Diagnosis Vasovagal syncope- Primary Syncope and collapse 21 weeks gestation of care, first trimester documented [facility]* Diagnosis Migraine with aura and without status migrainosus, not intractable- Primary Recurrent syncope Migraine without aura and without status migrainosus, not intractable Second trimester state, incidental Hx of migraine during Visual disturbances Unspecified visual disturbance care, first trimester documented [facility]* Diagnosis care, second trimester- Primary History of delivery of macrosomal infant Restless leg syndrome in Sleep disturbance Unspecified sleep disturbance related fatigue in second trimester Recurrent syncope Back pain affecting History of back injury care, first trimester 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 documented [facility]* Diagnosis Iron deficiency anemia secondary to inadequate dietary iron intake- Primary Subclinical hypothyroidism Other specified acquired hypothyroidism care, first trimester 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 documented [facility]* Diagnosis Subclinical hypothyroidism Other specified acquired hypothyroidism care, first trimester 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 documented [facility]* Diagnosis Subclinical hypothyroidism- Primary Other specified acquired hypothyroidism , unspecified gestational age care, first trimester 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 documented [facility]* Diagnosis 28 weeks gestation of - Primary 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 Constipation during in third trimester Anemia during in third trimester Iron deficiency anemia, unspecified iron deficiency anemia type 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 [facility] Diagnosis 28 weeks gestation of - Primary Iron deficiency anemia, unspecified iron deficiency anemia type 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 [facility] Diagnosis 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 [facility] Diagnosis Iron deficiency anemia, unspecified iron deficiency anemia type- Primary 28 weeks gestation of 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 documented [facility]* Diagnosis care, third trimester- Primary 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 [facility] Diagnosis Iron deficiency anemia, unspecified iron deficiency anemia type- Primary 28 weeks gestation of 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 [facility] Diagnosis care, third trimester- Primary 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 [facility] Diagnosis Vasovagal syncope- Primary Syncope and collapse Recurrent syncope 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 [facility] Diagnosis 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 [facility] Diagnosis care, third trimester- Primary 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 [facility] Diagnosis care, third trimester- Primary Restless leg syndrome in Sleep disturbance Unspecified sleep disturbance Uterine size-date discrepancy in third trimester 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 [facility] Diagnosis care, third trimester- Primary 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 [facility] Diagnosis delivery delivered- Primary delivery, without mention [...] of ureaplasma urealyticum documented [facility]* Diagnosis delivery delivered- Primary delivery, without mention of indication, delivered, with or without mention of antepartum condition 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 * Activity during (Austrian) * Healthy Weight Gain During (Austrian) * How to Adapt to Physical Changes During (Austrian) * care (Austrian) [facility] [employer] SystemInstructionsNot on file documented in this encounterA[facility] [employer] SystemInstructionsNot on file documented in this encounterAden[facility] [employer] SystemInstructionsNot on file documented in [facility] encounter[facility] SystemInstructions* Attachments The following attachments cannot be sent through Care Everywhere. * Cell-Free DNA Screening (Austrian) documented in this encounter[facility] SystemInstructionsNot on file documented in this encounterAden[facility] [employer] SystemInstructions* Attachments The following attachments cannot be sent through Care Everywhere. * Preeclampsia (Austrian) * Quad Test (Austrian) documented in this encounter[facility] [employer] SystemInstructionsNot on file documented in [facility] encounterC[facility] SystemInstructions* Attachments The following attachments cannot be sent through Care Everywhere. * Mycoplasma genitalium (Austrian) documented in this encounter[facility] [employer] SystemInstructionsNot on file documented in [facility] encounter[facility] SystemInstructions* Attachments The following attachments cannot be sent through Care Everywhere. * The Fifth Month (Austrian) documented in this encounter[facility] [employer] SystemInstructionsNot on file documented in this encounter[facility] [employer] SystemInstructionsNot on file documented in this encounter[facility] [employer] SystemInstructionsNot on file documented in this encounterProBay[facility] [employer] SystemInstructionsNot on file documented in this encounterProBay[facility] [employer] SystemInstructionsNot on file documented in this encounterProBay[facility] [employer] SystemInstructionsNot on file documented in this encounterPro[facility] Health SystemInstructionsNot on file documented in this encounter[facility] SystemInstructionsNot on file documented in this encounterAdena [facility] SystemInstructionsNot on file documented in this encounterPro[facility] SystemInstructionsNot on file documented in this encounterProBay[facility] [employer] SystemInstructionsNot on file documented in this encounterProSelect [facility] SystemInstructionsNot on file documented in this encounterC[facility] SystemInstructions* Attachments The following attachments cannot be sent through Care Everywhere. * Tdap vaccine (Austrian) * The Seventh Month (Austrian) documented in this encounterPro[facility] Health SystemInstructionsNot on file documented in this encounterPro[facility] [employer] SystemInstructionsNot on file documented in this encounter[facility] [employer] SystemInstructionsNot on file documented in this encounterC[facility] SystemInstructions* Attachments The following attachments cannot be sent through Care Everywhere. * Labor induction (Austrian) * Uuam-za-bxxb care with your (Austrian) documented in this encounterPro[facility] [employer] SystemInstructionsNot on file documented in this encounterAdena Health System [facility] [employer] SystemInstructionsNot on file documented in this encounterC[facility] SystemReason for referral (narrative)* Misc (Routine) - Pending ReviewSpecialtyDiagnoses / Procedures Referred By ContactReferred To Contact Procedures / feeding on discharge- Breastmilk Cassandra Saleh APRN-CNM [address] [place] [address], [address] [place] [address] Phone: tel: fax: Referral IDStatusReasonStart DateExpiration DateVisits RequestedVisits [id number] Lizmjg22/2/785438/ * Misc (Routine) - Pending ReviewSpecialtyDiagnoses / ProceduresReferred By ContactReferred To Contact Procedures Discharge Follow-Up Cassandra Saleh APRN-CNM [address] [place] [address], [address] [place] [address] Phone: tel: fax: Referral IDStatusReasonStart DateExpiration DateVisits RequestedVisits [id number] Bsxygp09/2/250028 [facility] Assessments Diagnosis Late menses Other disorder of menstruation and other abnormal bleeding from female genital tract Summary Purpose Family History No Family History Records FoundNo Family History Records FoundNo Family History Records FoundNo Family History Records FoundNo Family History Records FoundNo Family History Records FoundNo Family History Records Found Advance Directives Date ActivatedDate UaawtvbyyfdUzsijxac85/29/2025 5:39 PMDate ActivatedDate OlzxojilgdbOurdbsfx94/29/2025 5:39 PM12/27/2024 8:16 PM Additional Source Comments INFORMATION SOURCE (unrecogn ized section and content) DATE CREATED AUTHOR 06/09/2020 [facility] DATE CREATED AUTHOR AUTHOR'S ORGANIZ ATION 04/11/2022 [facility] DATE CREATED AUTHOR AUTHOR'S ORGANIZ ATION 12/15/2023 [facility] DATE CREATED AUTHOR AUTHOR'S ORGANIZ ATION 12/20/2023 [facility] DATE CREATED AUTHOR AUTHOR'S ORGANIZ ATION 08/13/2024 [facility] DATE CREATED AUTHOR AUTHOR'S ORGANIZ ATION 12/22/2024 [facility] DATE CREATED AUTHOR AUTHOR'S ORGANIZ ATION 12/28/2024 [facility] Reason for Visit (unrecogniz ed section and content) ReasonCommentsAbdominal PainReasonCommentsFollow-upS/p appendectomyReason CommentsInitial VisitOBIReasonCommentsInitial VisitReasonOnset DateCommentsNew Uihljtb5707/16/2024ReasonCommentsSTD ScreeningReasonComments Routine VisitReasonCommentsmfm consultReasonCommentsNew PatientPatient is here today as a new patientDx: Second trimester , migraine during , visual disturbances, syncope and collapseSpecialtyDiagnoses / ProceduresReferred By ContactReferred To ContactNeurology Diagnoses Second trimester Hx of migraine during Visual disturbances Syncope and collapse Sanjuanita Nguyen, EDEPIKA-[employer]YING [employer] [address] [place] [address] Phone: tel: fax: [facility] [address] [facility] [place] [address] Phone: tel: fax: Referral IDStatusReasonStart DateExpiration DateVisits RequestedVisits [id number] Review Specialty Services Required [id number] VisitPatient is 25w&2dReason CommentsHypothyroidismSpecialtyDiagnoses / ProceduresReferred By ContactReferred To ContactEndocrinology Diagnoses Subclinical hypothyroidism Nettie Lees APRN-CNM [address] [place] [address] Phone: tel: fax: Alice Michel MD [address] [facility] [address] [place] [address] Phone: tel:[phone] fax:[phone] Referral IDStatusReasonStart DateExpiration DateVisits RequestedVisits [id number] Review Specialty Services Required [id number] InfusionvenoferSpecialtyDiagnoses / ProceduresReferred By ContactReferred To Contact Diagnoses Iron deficiency anemia, unspecified iron deficiency anemia type 28 weeks gestation of Procedures WA IRON SUCROSE INJECTION Delicia Johnston, BASKET MACHINE OPERATOR-AND DRYING SUPER[employer]OR [employer] [address] [place] [address] Phone: tel: fax: Delicia Johnston BASKET MACHINE OPERATOR-AND [employer]YING SUPER[employer] [address] [place] [address] Phone: tel: fax: Referral IDStatusReasonStart DateExpiration DateVisits RequestedVisits [id number]/15/20258/750517PbszkxVqyww DateCommentsPelvic Pain10/13/2024ReasonCommentsOutpatient InfusionVenoferReasonCommentsNew Patient ORGANIC LAB WORKER REFERRAL ALESSANDRO LAWLER VASOVAGAL SYNCOPE IN 2ND TRIMESTERPalpitationsRapid Heart RateSyncopeFainting when getting up in the middle of night to use bathroom DizzinessShortness of BreathWith and without exertion and when trying to get a deep cleansing breathSpecialtyDiagnoses / ProceduresReferred By ContactReferred To ContactCardiology Diagnoses Vasovagal syncope Alessandro Lawler MD [address] [place] [address] Phone: tel: fax: [facility] [address] [facility] [address] [place] [address] Phone: tel: fax: Referral IDStatusReasonStart DateExpiration DateVisits RequestedVisits [id number] Review Specialty Services Required [id number] VisitPatient is currently 36w&1d.ReasonCommentsRoutine VisitPatient is currently 37w&2d.Reason Onset DateCommentsBack Pain12/20/2024ontract: 129ReasonCommentsScheduled InductionSpecialtyDiagnoses / ProceduresReferred By ContactReferred To Contact Joanie Sommer, [facility]EE[facility]KA-[facility] [address] [facility] [address] Phone: tel: fax: Referral IDStatusReasonStart DateExpiration DateVisits RequestedVisits [id number] CarePatient presents for one week incision check after primary with Dr. Segura.ReasonOnset DateComments ejpzhe5612/31/2024 Care Teams (unrecognized sec tion and content) Team MemberRelationshipSpecialtyStart DateEnd Date Carloz Nelson MD [address] [facility] [address] [place], [place] [id number] PCP - GeneralInternal Medicine09/02/23Team MemberRelationshipSpecialtyStart Date End Date Carloz Nelson MD [address] [place] [address] PCP - GeneralInternal Medicine09/02/23 Team Status: Inactive Member Role Status Dates Kj Mcclelland DO Attending Provider Active Start: December 12, 2023 End: December 12, 2023Team MemberRelationshipSpecialtyStart DateEnd Date No Pcp, [place] [address] PCP - GeneralFamily Medicine07/23/21Team MemberRelationshipSpecialtyStart DateEnd Date No Pcp, [place] [address] PCP - GeneralFamily Medicine07/23/21Team MemberRelationshipSpecialtyStart DateEnd Date Carloz Nelson MD [address] [place] [address] PCP - GeneralInternal Wnicbotn80/30/24Team MemberRelationshipSpecialtyStart Date End Date Carloz Nelson MD [address], [address] [place] [address] PCP - GeneralInternal Tlshiawn68/30/24Team MemberRelationshipSpecialtyStart Date End Date Carloz Nelson MD [address] [place] [address] PCP - GeneralInternal Ztjybicz79/30/24Team MemberRelationshipSpecialtyStart Date End Date Carloz Nelsno MD [address] [place] [address] PCP - GeneralInternal Fqtmdoxj09/30/24Team MemberRelationshipSpecialtyStart Date End Date Carloz Nelson MD [address] [place] [address] PCP - GeneralInternal Elmgoqrx50/30/24am MemberRelationshipSpecialtyStart Date End Date Carloz Nelson MD [address] [place] [address] P[facility] - [facility]Pres[facility] Centern[facility] Ssjyfehl22/30/24am MemberRelationshipSpecialtyStart Date End Date Carloz Nelson MD [address] [place] [address] PCP - GeneralPres[facility] Medical Centernal Qstdxdix93/30/24Te MemberRelationshipSpecialtyStart Date End Date Carloz Nelson MD [address] [place] [address] PCP - GeneralPres[facility] Centernal Oeyxlvvx52/30/24Team MemberRelationshipSpecialtyStart Date End Date Carloz Nelson MD [address] [place] [address] PCP - GeneralInternal Ljgxczdg79/30/24Team MemberRelationshipSpecialtyStart Date End Date Carloz Nelson MD [address] [place] [address] PCP - GeneralPres[facility] Centernal Pffnryop79/30/24Team MemberRelationshipSpecialtyStart Date End Date Carloz Nelson MD [address] [place] [address] PCP - GeneralInternal Kfetlnjo56/30/24Team MemberRelationshipSpecialtyStart Date End Date Carloz Nelson MD [address] [place] [address] PCP - GeneralInternal Obscqdwm46/30/24Team MemberRelationshipSpecialtyStart Date End Date Carloz Nelson MD [address] [place] [address] PCP - GeneralInternal Vubgrpsx49/30/24am MemberRelationshipSpecialtyStart Date End Date Carloz Nelson MD [address] [place] [address] PCP - GeneralInternal Ihwcgvpe60/30/24Team MemberRelationshipSpecialtyStart Date End Date Carloz Nelson MD [address] [place] [address] PCP - GeneralInternal Bnamveoy49/30/24Team MemberRelationshipSpecialtyStart Date End Date Carloz Nelson MD [address] [place] [address] PCP - GeneralInternal Uqscztwz72/30/24Team MemberRelationshipSpecialtyStart Date End Date Carloz Nelson MD [address] [place] [address] PCP - GeneralInternal Gnmbfmlb22/30/24Team MemberRelationshipSpecialtyStart Date End Date Carloz Nelson MD [address] [place] [address] PCP - GeneralInternal Jlfslhdc43/30/24am MemberRelationshipSpecialtyStart Date End Date Carloz Nelson MD [address] [place] [address] PCP - GeneralInternal Elndlknu81/30/24am MemberRelationshipSpecialtyStart Date End Date Carloz Nelson MD [address] [place] [address] PCP - GeneralInternal Gdhdqefp21/30/24am MemberRelationshipSpecialtyStart Date End Date Carloz Nelson MD [address] [place] [address] PCP - GeneralInternal Cylwmbry37/30/24am MemberRelationshipSpecialtyStart Date End Date Carloz Nelson MD [address] [place] [address] PCP - GeneralInternal Doyzwdox47/30/24Team MemberRelationshipSpecialtyStart Date End Date Carloz Nelson MD [address] [place] [address] PCP - GeneralInternal Vxoteohw09/30/24Team MemberRelationshipSpecialtyStart Date End Date Carloz Nelson MD [address] [place] [address] PCP - GeneralInternal Abeqwikm67/30/24Team MemberRelationshipSpecialtyStart Date End Date Carloz Nelson MD [address] [place] [address] PCP - GeneralInternal Heotnvkv69/30/24am MemberRelationshipSpecialtyStart Date End Date Carloz Nelson MD [address] [place] [address] PCP - GeneralPres[facility] Centernal Lektxwun20/30/24am MemberRelationshipSpecialtyStart Date End Date Carloz Nelson MD [address] [place] [address] PCP - GeneralPres[facility] Medical Centernal Wfctzdza46/30/24Te MemberRelationshipSpecialtyStart Date End Date Carloz Nelson MD [address] [place] [address] PCP - GeneralPres[facility] Medical Centernal Pqxlctus64/30/24Team MemberRelationshipSpecialtyStart Date End Date Carloz Nelson MD [address] [place] [address] PCP - GeneralInternal Ugcptrrc83/30/24Team MemberRelationshipSpecialtyStart Date End Date Carloz Nelson MD [address], [address] [place] [address] PCP - GeneralPres[facility] Medical Centernal Ieietlhz98/30/24Team MemberRelationshipSpecialtyStart Date End Date Carloz Nelson MD [address], [address] [place] [address] PCP - GeneralInternal Jtjopkdk61/30/24Team MemberRelationshipSpecialtyStart Date End Date Carloz Nelson MD [address], [address] [place] [address] PCP - GeneralInternal Vsxzfuzr18/30/24Team MemberRelationshipSpecialtyStart Date End Date Carloz Nelson MD [address], [address] [place] [address] PCP - GeneralInternal Hzwefykg09/30/24Team MemberRelationshipSpecialtyStart Date End Date Carloz Nelson MD [address], [address] [place] [address] PCP - GeneralInternal Uascrgzu11/30/24Team MemberRelationshipSpecialtyStart Date End Date Carloz Nelson MD [address], [address] [place] [address] PCP - GeneralInternal Uvymskpd30/30/24 Goals (unrecognized section and content) Goals may be documented in a n alternate sectionNot on filedocumented as of this encounterNot on filedocumented as of this encounterNot on filedocumented as of this encounterNot on filedocumented as of this encounterNot on filedocumented as of this encounterNot on filedocumented as of this encounterNot on filedocumented as of this encounterNot on filedocumented as of this encounterNot on filedocumented as of this encounterNot on filedocumented as of this encounterNot on filedocumented as of this encounterNot on filedocumented as of this encounterNot on filedocumented as of this encounterNot on filedocumented as of this encounterNot on filedocumented as of this encounterNot on filedocumented as of this encounterNot on filedocumented as of this encounterNot on filedocumented as of this encounterNot on filedocumented as of this encounterNot on filedocumented as of this encounterNot on filedocumented as of this encounterNot on filedocumented as of this encounterNot on filedocumented as of this encounterNot on filedocumented as of this encounterNot on filedocumented as of this encounterNot on filedocumented as of this encounterNot on filedocumented as of this encounterNot on filedocumented as of this encounterNot on filedocumented as of this encounterNot on filedocumented as of this encounterNot on filedocumented as of this encounterNot on filedocumented as of this encounterNot on filedocumented as of this encounterNot on filedocumented as of this encounterNot on filedocumented as of this encounterNot on filedocumented as of this encounterNot on filedocumented as of this encounterNot on filedocumented as of this encounterNot on filedocumented as of this encounterNot on filedocumented as of this encounterNot on filedocumented as of this encounterNot on filedocumented as of this encounterNot on filedocumented as of this encounterNot on filedocumented as of this encounterNot on filedocumented as of this encounterNot on filedocumented as of this encounterNot on filedocumented as of this encounterNot on filedocumented as of this encounter Scheduled Active and Recently Administ ered Medications (unrecognized section and content) Medication Order//03/2024 acetaminophen (TYLENOL EXTRA STRENGTH) tablet 1,000 mg 1,000 mg, oral, Every 8 hours, First dose on Sat12/25/24 at 0100, , Alternate administration every 4 hours with ketorolac or ibuprofen * 0107 (Given - Provider: Miriam Alexandre RN) * 0902 (Given - Provider: Mini Munoz RN) * 1724 (Given - Provider: Mini Munoz RN - Comment: [facility] states ok) * 0158 (Given - Provider: Ambar Armstrong RN) * 0917 (Given - Provider: Sabrina Lomeli RN) * 1726 (Given - Provider: Sabrina L Lomeli, RN) * 0115 (Given - Provider: Ambar Armstrong RN) * 0917 (Given - Provider: Sabrina Lomeli, RN) * 1700 (Due - Provider: Raúl Dela Cruz [facility]) clindamycin (CLEOCIN) IVPB 600 mg/50 mL in [...] 1217 (New Bag - Provider: Sabrina Lomeli, FRANCESCA) * 1242 (Stop Bag - Provider: Sabrina Lomeli, RN) * 2019 (New Bag - Provider: Ambar Armstrong, FRANCESCA) * 2048 (Stop Bag - Provider: Ambar Armstrong, RN) [...] (Given - Provider: Sabrina Lomeli RN) * 2049 (Given - Provider: Ambar Armstrong RN) * 0917 (Given - Provider: Sabrina Lomeli RN) * 2100 (Due) doxycycline (VIBRAMYCIN) capsule 100 mg 100 mg, [...] (Given - Provider: Sabrina Lomeli RN) * 2100 (Due) ibuprofen (MOTRIN) tablet 800 mg(Linked Group 1) 800 mg, oral, Every 8 hours, First dose on 12/26/24 at 0500, , Alternate administration every 4 hours with acetaminophen Look-alike/sound-alike medication - verify indication for use. Take/Give with food or milk. * 0529 (Given - Provider: Ambar Armstrong RN) * 1246 (Given - Provider: Sabrina Lomeli RN) * 204 (Given - Provider: Ambar Armstrong, FRANCESCA) * 0507 (Given - Provider: Ambar Armstrong, FRANCESCA) * 1300 (Due) * 2100 (Due) ketorolac (TORADOL) injection 30 mg (COMPLETED)(Linked Group [...] * 2110 (Given - Provider: Ambar Armstrong, RN) PNV,calcium 18-kxqr-ngcot acid ( PLUS) 27 mg iron- 1 mg tablet 1 tablet 1 tablet, oral, Daily, First dose on Sat12/25/24 at 0900, * 0902 (Given - Provider: Mini Munoz RN) * 0917 (Given - Provider: Sabrina Lomeli, FRANCESCA) * 0917 (Given - Provider: Sabrina Lomeli, RN) polyethylene glycol (GLYCOLAX) packet 17 g 17 [...] - Comment: FLUSHED WHEN SALINE LOCKED) * 211 (Given - Provider: Ambar Armstrong, FRANCESCA) * 0917 (Given - Provider: Sabrina Lomeli, FRANCESCA) * 2019 (Given - Provider: Ambar Armstrong, FRANCESCA) * 0900 (Due) * 2100 (Due) Medication Order//03/2024 lactated ringers infusion (CANCELED) 125 mL/hr, intravenous, Continuous, Starting on Sat12/24/24 at 2014, For 1 day, , Start after 4 hour oxytocin (PITOCIN) infusion and lactated ringers infusion is completed. * 0308 (Rate/Dose Change - Provider: Miriam Alexandre RN) * 0350 (Stop Bag - Provider: Miriam Alexandre RN) * 0351 (Stop Bag - Provider: Miriam Strausbaugh, RN) * 0430 (Paused - Provider: Miriam Alexandre RN) * 0431 (Restarted - Provider: Miriam Alexandre RN) * 0433 (Paused - Provider: Miriam Alexandre RN) * 0740 (Stop Bag - Provider: Mini Munoz, RN - Comment: [Order ends at this [...] Bag - Provider: Mini Munoz RN) Medication Order/ bisacodyL (DULCOLAX) suppository 10 mg 10 mg, [...] 0229 (Rate/Dose Verify - Provider: Miriam Alexandre, RN) * 0307 (Stop Bag - Provider: Miriam Alexandre, RN) measles, mumps and rubella vaccine (M-M-R II) injection 0.5 mL 0.5 mL, subcutaneous, During hospitalization, immunization, If Rubella titer Not Immune or Equivocal before discharge, Starting on Stephani 12/24/24 at 2242, For 1 dose, , Refer to Sherley for administration instructions., Indications: iebfcgm-cxjdp-jdvnzhq vaccination methylergonovine (METHERGINE) injection 200 mcg 200 [...] * 1157 (Given - Provider: Sabrina Lomeli, RN) * 1725 (Given - Provider: Sabrina Lomeli, RN) * 2321 (Given - Provider: Ambar Armstrong, FRANCESCA) * 0246 (Given - Provider: Ambar Armstrong, FRANCESCA) oxyCODONE (ROXICODONE) immediate release tablet 5 mg 5 mg, oral, Every 4 hours PRN, moderate pain - pain scale 4-6, breakthrough pain, Starting on Stephani 12/24/24 at 2242, , Look-alike/sound-alike medication - verify indication for use. Immediate release. * 0040 (Given - Provider: Miriam Alexandre RN) * 1141 (Not Given - Provider: Mini Munoz, RN - Reason: Contraindicated) * 1545 (Given - Provider: Mini Munoz RN) * 2132 (Given - Provider: Sofía Wilkinson, FRANCESCA) * 0932 (Given - Provider: Sabrina Lomeli [...] 12/24/24 at 2241, For 1 dose, , administer as directed [...] hours. Administer with Oxytocin bolus and infusion FOR RECORDS PERTAINING TO PATIENTS WHO ARE [...] BE BASED ON THE PRIMARY CLINICAL RECORDS. [email or web address] [facility]. provides no warranty or guarantee of the accuracy or completeness of information in this document.
--- OUTSIDE RECORDS SUMMARY | 2024-12-31 21:23 | XMS_ITS | Encounter Summary ---
Author Organization [employer] tem Address [id number] [address] [place] [address] Care Team Providers Care Web Press Roll Tender Name Role Phone Carloz Nelson MD Primary Care Provider [phone] Encounter Details DateTypeDepartmentCare Team (Latest Contact Info)Qhqxolkuzst54/26/2025Travel Social History Tobacco UseTypesPacks/DayYears UsedDateSmoking Tobacco: NeverPassive [...] from medical appointments or from getting medications?Patient pqomfqzc76/21/2025In the past 12 months, has lack of transportation kept you from meetings, work, or from getting things needed for daily living?Patient ejlqxuji43/21/2025UDIT-CAnswerDate RecordedQ1: How often do you have a [...] in as a part of a household?Patient Sovxyjdo57/21/2025 ChildcareAnswerDate ViywzmdlAxwytsxxkTcgbzpv29/11/2019EmploymentAnswerDate XpzabjqpUknpndlsbcOztjatz78/11/2019Hunger ScreeningAnswerDate RecordedWithin the past 12 months we worried whether our food would run out before we got money to buy more.Never True12/21/2024Within the past 12 months the food we bought just didn't last and we didn't have money to get more.Never True12/21/2024 CommentsYesSex and Gender InformationValueDate RecordedSex Assigned at Jlmpqx7205/03/2024 6:08 PM EDTLegal TxyHynbjd94/04/2015 8:25 PM EDTGender Identity Pvlcfk2305/03/2024 6:07 PM EDTSexual OrientationChoose not to cujrmioo36/09/2025 6:07 PM EDTdocumented as of this encounter Plan of Treatment DateTypeDepartmentCare Team (Latest Contact Info)Huozcblnono11/22/2025 9:00 AM ESTOffice Visit [facility] [address] [facility] [address] [place] [address] Nigle Kincaid MD [address] [place] [address] 03/01/2025 10:00 AM ESTOffice Visit [facility] [address] [place] [address] Alice Michel MD [address] [place], [place] [id number] documented as of this encounter Visit Diagnoses Not on filedocumented in this encounter Additional Health Concerns AssessmentNoted TimeA Body Mass Index follow-up plan has been documented for the gryyktq7009/08/2024 11:31 AM EDTdocumented as of this encounter Care Teams Team MemberRelationshipSpecialtyStart DateEnd Date Carloz Nelson MD [address] [facility] [address] [place] [address] PCP - GeneralInternal Iihzrgnq92/30/24documented as of this encounter
--- OUTSIDE RECORDS SUMMARY | 2024-12-31 21:23 | XMS_ITS | Encounter Summary ---
Author Organization [employer] tem Address [id number] [address] [place] [address] Care Team Providers Care Assistant Professor Of Music Name Role Phone Carloz Nelson MD Primary Care Provider [phone] Encounter Details DateTypeDepartmentCare Team (Latest Contact Info)Vcpyrsofbrz92/27/2025Travel Social History Tobacco UseTypesPacks/DayYears UsedDateSmoking Tobacco: NeverPassive [...] from medical appointments or from getting medications?Patient ajomiejk69/21/2025In the past 12 months, has lack of [...] in as a part of a household?Patient Utitlhot27/21/2025 ChildcareAnswerDate KitahwlwPbjlobkcfFvsvnjf86/11/2019EmploymentAnswerDate ShfczgokYwaexdbjwsYjrgalq11/11/2019Hunger ScreeningAnswerDate RecordedWithin the past 12 months we worried whether our food would run out before we got money to buy more.Never True12/21/2024Within the past 12 months the food we bought just didn't last and we didn't have money to get more.Never True12/21/2024 CommentsYesSex and Gender InformationValueDate RecordedSex Assigned at Yywoxn0205/03/2024 6:08 PM EDTLegal VkpZbkxeu04/04/2015 8:25 PM EDTGender Identity Fhcgzw8405/03/2024 6:07 PM EDTSexual OrientationChoose not to yrmosesy65/09/2025 6:07 PM EDTdocumented as of this encounter Plan of Treatment DateTypeDepartmentCare Team (Latest Contact Info)Tjfezsbqwfh82/22/2025 9:00 AM ESTOffice Visit [facility] [address] [facility] [address] [place] [address] Nigel Kincaid MD [address] [place] [address] 03/01/2025 10:00 AM ESTOffice Visit [facility] [address] [place] [address] Alice Michel MD [address] [place], [place] [id number] documented as of this encounter Visit Diagnoses Not on filedocumented in this encounter Additional Health Concerns AssessmentNoted TimeA Body Mass Index follow-up plan has been documented for the yljaygi5309/08/2024 11:31 AM EDTdocumented as of this encounter Care Teams Team MemberRelationshipSpecialtyStart DateEnd Date Carloz Nelson MD [address] [facility] [address] [place] [address] PCP - GeneralInternal Qhjstkcz67/30/24documented as of this encounter
--- OUTSIDE RECORDS SUMMARY | 2024-12-31 21:23 | XMS_ITS | Encounter Summary ---
Author Organization [employer] tem Address [id number] [address] [place] [address] Care Team Providers Care Hyperbaric Technologist Name Role Phone Carloz Nelson MD Primary Care Provider [phone] Reason for Visit * ReasonOnset TmoaXskficyphborii39/06/2025 Encounter Details DateTypeDepartmentCare Team (Latest Contact Info)Qdcadsnzcsf81/06/2025Telephone [facility] [address] [place] [address] Shani Millan Social History Tobacco UseTypesPacks/DayYears UsedDateSmoking Tobacco: NeverPassive Smoke Exposure: NeverSmokeless Tobacco: NeverAlcohol UseStandard Drinks/WeekComments Not Currently0 (1 standard drink = 0.6 oz pure alcohol)PHQ-2AnswerDate Recorded Total Vglml94803/02/2024UDIT-CAnswerDate RecordedQ1: How often do you have a [...] needed for daily living?No12/23/2024Edinburgh Depression ScaleAnswerDate Recorded [place]wood Depression Scale Mwmjf13203/01/2024The thought of harming myself has occurred to me.Never12/30/2024Housing InstabilityAnswerDate Recorded Are you worried or concerned that in the next two months you may not have stable housing that you own, rent or stay in as a part of a household?No12/23/2024 ChildcareAnswerDate RecordedDo problems getting director of early childhood make it difficult for you to work or study?No12/31/2024EmploymentAnswerDate RecordedEmploymentUnknown 08/05/2018Hunger ScreeningAnswerDate RecordedWithin the past 12 months we worried whether our food would run out before we got money to buy more.Never True12/31/2024Within the past 12 months the food we bought just didn't last and we didn't have money to get more.Never True12/31/2024CommentsNoSex and Gender InformationValueDate RecordedSex Assigned at HffkyBfovuv54/09/2025 6:08 PM EDTLegal FnsNkosfz36/04/2015 8:25 PM EDTGender SdttvbrpXtreud58/09/2025 6:07 PM EDTSexual OrientationChoose not to fufdlzty06/09/2025 6:07 PM EDTdocumented as of this encounter Functional Status * AUDIT-C ScoreAnswerDate of FkvyepycqiYesfgn721/06/2025 3:55 PM Fozia Leone LPN * QuestionAnswerDate of AssessmentAuthorQ1: How often do you have a drink containing alcohol?Never12/31/2024 3:55 PM Fozia Leone LPNQ2: How many drinks containing alcohol do you have on a typical day when you are drinking? Patient does not drink12/31/2024 3:55 PM Fozia Leone LPNQ3: How often do you have six or more drinks on one occasion?Never12/31/2024 3:55 PM Fozia Caro LPN documented as of this encounter Miscellaneous Notes * Telephone Encounter - Shani Millan - 12/31/2024 4:56 PM EST Contract: [id number] Hahn needs orders to get imaging on area to determine if she has hernia * Telephone Encounter - Shani Millan - 12/31/2024 4:56 PM EST Contract: [id number] Called Tiffany Lee and relayed info for patient documented in this encounter Plan of Treatment DateTypeDepartmentCare Team (Latest Contact Info)Jkokahknvib79/22/2025 9:00 AM ESTOffice Visit [facility] [address] [facility] [address] [place] [address] Nigel Kincaid MD [address] [place], [place] [id number] 03/01/2025 10:00 AM ESTOffice Visit [facility] [address] [place] [address] Alice Michel MD [address] [place] [address] documented as of this encounter Visit Diagnoses Not on filedocumented in this encounter Additional Health Concerns AssessmentNoted TimePHQ-9 Depression Total Score: 1:07 PM ESTA Body Mass Index follow-up plan has been documented for the avhhwvk8909/08/2024 11:31 AM EDTdocumented as of this encounter Care Teams Team MemberRelationshipSpecialtyStart DateEnd Date Carloz Nelson MD [address] [facility] [address] [place] [address] PCP - GeneralInternal Ttlkotov67/30/24documented as of this encounter
[2024-12-31 21:36] LABS: Hematocrit 37.8 % (36.0-48.0); Hemoglobin 12.7 g/dL (12.0-16.0); Immature Granulocytes Abs Auto 0.02 10^3/uL (0.00-0.03); Immature Granulocytes Pct Auto 0.3 % (0.0-0.5); Lymphocytes Absolute Auto 1.9 10^3/uL (1.2-3.8); Mean Corpuscular HGB Conc 33.6 g/dL (29.9-35.2); Mean Corpuscular Hemoglobin 29.5 pg (26.7-34.0); Mean Corpuscular Volume 87.9 fL (81.0-99.0); Platelet Count 389 10^3/uL (150-450); Red Blood Count 4.30 10^6/uL (4.20-5.40); White Blood Count 7.0 10^3/uL (4.0-11.0)
--- NOTE | 2024-12-31 21:41 | ED_ITS ---
HPI HPI - General Adult General Chief complaint: Skin/Abscess/Foreign Body Stated complaint: C SECTION/ BULGE ON THE OUTSIDE Time Seen by Provider: 12/31/24 20:52 Source: patient Mode of arrival: walk-in History of Present Illness HPI narrative: This 29-year-old female G2, P2 who is 1 week after a delivery at [facility] presents for evaluation of lower abdominal pain specifically on the left side of her . She states she thinks she feels a bulge in this area and internally beneath the incision and her lower abdomen specifically on the left side.. She has not had any redness swelling or drainage from the area. She was discharged home with a prescription for a 3-day course of pain medication. She has completed that and is only using Tylenol and ibuprofen for her pain. She states she followed up today with an [facility] in [place] that is affiliated with her [facility] but not her typical [facility] and was told that there was concern that she may be bleeding internally due to her pain. She has normal lochia with small to moderate size clots. She has not had a fever. She is breast-feeding. She states she is having so much abdominal pain that she is having trouble holding her baby for breast-feeding and also has pain with ambulating. She has been able to ambulate and is passing gas and having bowel movements. She states that her delivery was complicated because she was induced and then told after 6 hours that her baby was exhibiting signs of distress and she was given 10 minutes to decide if she wanted to have her water broken or a . She is tearful in the emergency department stating she did not have time to make this decision and is now regretting the decision to have a . She states she got into a verbal altercation with her [facility] and requested a different provider which is why Dr. Segura was called to perform her . Related Data Allergies Allergy/AdvReac Type Severity Reaction Status Date / Time No Known Drug Allergies Allergy Verified 06/18/24 21:36 Opioid HPI Opioid Management Most Recent Opioid Data: Last Pain Scale 6 12/13/23, 08:59 Last ORT Total Score 3 12/12/23, 22:02 Last ORT Risk Category Low Risk 12/12/23, 22:02 Review of Systems ROS Status of ROS 10 or more systems reviewed and unremark able except as noted in history and below [facility] Medical History (Updated 12/31/24 @ 22:18 by Annika Morel MD) Attention deficit disorder (ADD) in adult ?F98.8 - Other specified behavioral and emotional disorders with onset usually occurring in childhood and adolescence (ICD-10) Social History (Updated 12/12/23 @ 22:13 by Vera Porter RN) Within the past year, how often did you have a drink containing alcohol: monthly or less Within the past year, how many standard drinks containing alcohol did you have on a typical day: 1 or 2 Within the past year, how often did you have six or more drinks on one occasion: less than monthly Total score: 1 Score interpretation: A score less than 3 is consistent with normal alcohol consumption. Smoking status: Current some day smoker Do you use any of these nicotine containing products: e-cigarettes and vaping products Non-prescribed substance use: cannabis (any form) Highest level of school completed/degree received: GED or equivalent Are you now , , , , never or living with a partner: never In a typical week, how many times do you talk on the telephone with family, frie nds, or neighbors: 3 or more times per week How often do you get together with friends or relatives: 3 or more times per week How often do you attend sikhism or quaker services: never Little interest or pleasure in doing things: not at all Feeling down, depressed, or hopeless: not at all Feel stressed/tense/nervous/anxious/difficulty sleeping: not at all Gender Identity: female Exam Narrative Exam Narrative: Vital signs and Nursing Notes reviewed: Patient is afebrile with a normal pulse, mildly elevated blood pressure at 130/89, she is not hypoxic with pulse ox of 97% on room air General: Awake, alert, oriented, tearful at times, no respiratory distress HEENT: Normocephalic atraumatic, mucous membranes are moist and pink, eyes are clear, normal conjunctiva Chest: Lungs are clear to auscultation with good air entry, there is no wheezing rhonchi or rales appreciated no accessory muscle use, patient is speaking in complete sentences- CVS: Regular rate and rhythm S1-S2, no murmurs rubs or gallops, pulses are brisk and equal bilaterally ABD: Pfannenstiel incision in the lower abdomen is covered with Steri-Strips and appears to be healing well. There is no redness, swelling, bleeding or drainage on the Steri-Strips. I do not appreciate any bulging or other notable abnormality. There is tenderness to palpation in this area. Femoral pulses are brisk and equal. Upper abdomen is soft nondistended and nontender. Extremities: Moving all extremities, no lower extremity tenderness or swelling noted, negative Homans' sign, pulses are brisk and equal bilaterally Skin: Normal in appearance without rash,pallor, petechiae or purpura Neuro: No focal deficits Constitutional Vital Signs, click to edit/add: Last Vital Signs Temp 97.9 F 12/31/24 20:41 Pulse 89 12/31/24 20:41 Resp 18 12/31/24 20:41 BP 130/89 12/31/24 20:41 Pulse Ox 97 12/31/24 20:41 O2 Del Method Room Air 12/31/24 20:41 Course Vital Signs Vital signs: Vital Signs Temperature 97.9 F 12/31/24 20:41 Pulse Rate 89 12/31/24 20:41 Respiratory Rate 18 12/31/24 20:41 Blood Pressure 130/89 12/31/24 20:41 Pulse Oximetry 97 12/31/24 20:41 Oxygen Delivery Method Room Air 12/31/24 20:41 Temperature 97.9 F 12/31/24 20:41 Pulse Rate 89 12/31/24 20:41 Respiratory Rate 18 12/31/24 20:41 Blood Pressure 130/89 12/31/24 20:41 Pulse Oximetry 97 12/31/24 20:41 Oxygen Delivery Method Room Air 12/31/24 20:41 Medical Decision Making MDM Narrative Medical decision making narrative: 29-year-old female who is 1 week after having a at [facility] with Dr. Segura presents for evaluation of lower abdominal pain and the sensation that there is a bulge on the left side of her incision. She states she is concerned that she is bleeding inside because she is having pain at her incision and internally. She is tearful in the emergency department stating that the Tylenol and ibuprofen that she is taking for pain is not controlling her pain. She is having bowel movements and has been ambulating. She is having trouble breast-feeding due to the pain in the lower abdomen and has been pumping. She was agreeable to an oral Percocet and Zofran. An IV was placed and labs were ordered. She has a normal white count and stable hemoglobin. BMP is normal. CT scan of the abdomen pelvis with IV contrast was ordered to rule out internal hernia, bowel obstruction, dehiscence, hematoma, seroma or other conditions leading to her abdominal pain. CT scan shows uterus with nondistended fluid normal amount of subcutaneous air, postsurgical in nature. There was no sign of any herniation or active bleeding. No hematoma was noted. There were no other acute abdominal findings. The results of the CT scan and the patient's labs were discussed with her. She was receiving iron infusions for anemia and is happy with a hemoglobin of 12.7. I explained to her that her symptoms are consistent with a major abdominal surgery within 1 week. She will be given to Percocet to take home and I agree to refill another short course of pain medicine for her to take for improved control of her pain. She was encouraged to follow-up closely with her [facility] and return to the emergency department for worsening symptoms, fever, red ness swelling drainage from her incision or any concerns. Lab Data Labs: Lab Results 12/31/24 Range/Units 21:15 WBC 7.0 (4.0-11.0) 10^3/uL RBC 4.30 (4.20-5.40) 10^6/uL Hgb 12.7 (12.0-16.0) g/dL Hct 37.8 (36.0-48.0) % MCV 87.9 (81.0-99.0) fL MCH 29.5 (26.7-34.0) pg MCHC 33.6 (29.9-35.2) g/dL RDW 13.6 (11.0-15.0) % Plt Count 389 (150-450) 10^3/uL MPV 10.0 (9.5-13.5) fL Neut % (Auto) 60.4 (43.0-75.0) % Lymph % (Auto) 27.7 (20.5-60.0) % Sunflower % (Auto) 7.7 (1.7-12.0) % Eos % (Auto) 3.0 (0.9-7.0) % Baso % (Auto) 0.9 (0.2-2.0) % Neut # (Auto) 4.2 (1.4-6.5) 10^3/uL Lymph # (Auto) 1.9 (1.2-3.8) 10^3/uL Sunflower # (Auto) 0.5 (0.3-0.8) 10^3/uL Eos # (Auto) 0.2 (0.0-0.7) 10^3/uL Baso # (Auto) 0.1 (0.0-0.1) 10^3/uL Abs Immat Gran (auto) 0.02 (0.00-0.03) 10^3/uL Imm/Tot Granulo (auto) 0.3 (0.0-0.5) % Sodium 145 (136-145) mmol/L Potassium 3.6 (3.5-5.1) mmol/L Chloride 112 H (98-107) mmol/L Carbon Dioxide 23.1 (21.0-32.0) mmol/L Anion Gap 13.5 BUN 15.0 (7.0-18.0) mg/dL Creatinine 0.69 (0.55-1.02) mg/dL Est GFR ( Amer) >60 (>=60 mL/min/1.73m^2) Est GFR (Non-Af Amer) >60 (>=60 mL/min/1.73m^2) BUN/Creatinine Ratio 21.7 Glucose 74 (74-106) mg/dL Calcium 8.8 (8.5-10.1) mg/dL Imaging Data CT scan - abdomen: Radiologist's impression: ITS Impressions Abdomen/Pelvis CT 12/31/24 21:04 IMPRESSION: A uterus. incision containing nondistended fluid. The minimal subcutaneous air likely postsurgical. No active bleeding. No hemoperitoneum. No hematoma. No acute abdominal or pelvic findings. Impression dictated by: Dylan Sloan M.D. 12/31/2024 9:59 PM Dictation Location: [place] [id number] Electronically authenticated by: [id number] Y Date: 12/31/2024 21:59 Discharge Plan Discharge Chief Complaint: Skin/Abscess/Foreign Body Clinical Impression: Postoperative abdominal pain Patient Disposition: Home, Self-Care Time of Disposition Decision: 22:22 Condition: Good Print Language: Hebrew Instructions: Pain Management After Surgery (DC) Additional Instructions: Follow-up closely with your [facility]. Use pain medicine as needed. Please do not use the Percocet in addition to Tylenol; use 1 or the other as needed for pain. You can use Motrin every 6 hours. You can use warm compresses on your lower abdominal incision area if this provides you some relief of pain. Return to the emergency department for worsening pain, redness swelling drainage your incision or any other concerns. Referrals: HOLLY RAMIREZ [Primary Care Provider, Internal Medicine] - 1 week
[2024-12-31 22:01] LABS: Anion Gap 13.5; Blood Urea Nitrogen 15.0 mg/dL (7.0-18.0); Calcium 8.8 mg/dL (8.5-10.1); Carbon Dioxide 23.1 mmol/L (21.0-32.0); Chloride 112 mmol/L (98-107); Estimated GFR (African America >60 (>=60 mL/min/1.73m^2); Estimated GFR (Non-African Ame >60 (>=60 mL/min/1.73m^2); Glucose 74 mg/dL (74-106); Potassium 3.6 mmol/L (3.5-5.1); Sodium 145 mmol/L (136-145)
[2024-12-31] MEDS: ONDANSETRON 4 MG RAPDIS TABLET 1 MG SL (22:39)
== END 2024-12-31 22:49 | disposition home or self-care (01) ==
PROVIDERS: Emergency Provider Emergency Medicine; Family Provider Family Medicine; PCP Internal Medicine
DX: O90.89 Other complications of the puerperium, not elsewhere classified (principal); R10.30 Lower abdominal pain, unspecified; O99.335 Smoking (tobacco) complicating the puerperium; F17.290 Nicotine dependence, other tobacco product, uncomplicated
CPT/HCPCS: 36415; 74177; 80048; 85025; 96374; 99285; J2405; Q0162; Q9967

== ENCOUNTER 2025-01-26 17:40 | Emergency (ER) | payer OTHER, SELFPAY ==
[2025-01-26 17:48] VITALS: BP 108/79; PULSE 115; TEMP 36.5; O2SAT 100; BMI 21.9
--- NOTE | 2025-01-26 17:56 | CT_ITS ---
[facility] [place] [id number] Patient Name: LANE SHAW MRN: [id number] date: 1995 Sex: F Assigned Patient Location: ER Current Patient Location: ED.MAIN Accession/Order Number: [id number] Exam Date: 01/26/2025 18:33 Report Date: 01/26/2025 19:08 At the request of: ALBIN GRIFFITH Procedure: CT abdomen pelvis wo con CT ABDOMEN AND PELVIS WITHOUT INTRAVENOUS CONTRAST: CLINICAL HISTORY: pain, fall COMPARISON: 12/31/2024 TECHNIQUE: Spiral images were obtained through the abdomen and pelvis without intravenous contrast. This CT exam was performed using one or more following dose reduction techniques: Automated exposure control, adjustment of the mA and/or kV according to patient size, or use of iterative reconstruction technique. FINDINGS: Lung Bases: [Lung bases are clear] Organs:Noncontrast appearance of the liver, gallbladder, spleen, adrenals, pancreas and gallbladder unremarkable.[ GI: Mild retained stool throughout the colon. No bowel obstruction.[Postsurgical changes of the cecum presumably from appendectomy. Pelvis:[Uterus unremarkable. No suspicious adnexal mass. Bladder is collapsed.] Peritoneum/Retroperitoneum:No free air or free fluid. Aorta normal in caliber.[ Abd wall/Bones:No suspicious osseous lesion. No displaced fracture involving the sacrum or the lumbar spine Or pelvis.[ CT/CT abdomen pelvis wo con IMPRESSION: Negative acute inflammatory process or bowel obstruction. Negative for nephrolithiasis or obstructive uropathy. Impression dictated by: Jorge L Cui M.D. 01/26/2025 7:08 PM Dictation Location: [place] [employer] Electronically authenticated by: [id number] Y Date: 01/26/2025 19:08
--- NOTE | 2025-01-26 17:57 | ED.GENADUL1 ---
HPI HPI - General Adult General Chief complaint: Fall Stated complaint: FELL YESTERDAY/ INSIDES HURT/ TAILBONE HURTS Time Seen by Provider: 01/26/25 17:51 Source: patient Mode of arrival: walk-in Limitations: no limitations History of Present Illness HPI narrative: 29 year old female presents to the ED for pain to her lower back, coccyx, lower abdomen, and right pelvis s/p slip and fall yesterday on ice. She landed on her buttocks. Denies hitting her head and LOC. She had a approx 1 month ago. She is . She took Motrin without relief. Denies urinary symptoms, saddle ansethesia, and change in bowel and/or bladder control. Related Data Previous Rx's ?Medication ?Instructions ?Recorded oxycodone 5 mg tablet 5 mg PO Q8H PRN pain 4 days #10 01/26/25 tabs Allergies Allergy/AdvReac Type Severity Reaction Status Date / Time doxycycline Allergy Rash Verified 01/26/25 17:48 Opioid HPI Opioid Management Most Recent Opioid Data: Last Pain Scale 6 Today, 19:11 Last ED Pain Assessment Today, 19:00 Last MAR Pain Assessment Today, 19:11 Last ORT Total Score 3 12/12/23, 22:02 Last ORT Risk Category Low Risk 12/12/23, 22:02 Review of Systems ROS Constitutional Denies: fever, chills or fatigue Ears, nose, mouth, and throat Denies: neck pain Cardiovascular Denies: chest pain Respiratory Denies: shortness of breath Gastrointestinal Reports: abdominal pain; Denies: nausea, vomiting or diarrhea Genitourinary Denies: painful urination, urinary incontinence or blood in urine Musculoskeletal Reports: back pain; Denies: neck pain, extremity pain or extremity swelling Neurological Denies: headache, numbness in extremities, weakness in extremities or dizziness PFSH PFSH Medical History (Updated 01/26/25 @ 19:56 by Giovanna Liang) Attention deficit disorder (ADD) in adult ?F98.8 - Other specified behavioral and emotional disorders with onset usually occurring in childhood and adolescence (ICD-10) Social History (Updated 12/12/23 @ 22:13 by Vera Porter RN) Within the past year, how often did you have a drink containing alcohol: monthly or less Within the past year, how many standard drinks containing alcohol did you have on a typical day: 1 or 2 Within the past year, how often did you have six or more drinks on one occasion: less than monthly Total score: 1 Score interpretation: A score less than 3 is consistent with normal alcohol consumption. Smoking status: Current some day smoker Do you use any of these nicotine containing products: e-cigarettes and vaping products Non-prescribed substance use: cannabis (any form) Highest level of school completed/degree received: GED or equivalent Are you now , , , , never or living with a partner: never In a typical week, how many times do you talk on the telephone with family, friends, or neighbors: 3 or more times per week How often do you get together with friends or relatives: 3 or more times per week How often do you attend confucianism or baptism services: never Little interest or pleasure in doing things: not at all Feeling down, depressed, or hopeless: not at all Feel stressed/tense/nervous/anxious/difficulty sleeping: not at all Gender Identity: female Exam Constitutional Vital Signs, click to edit/add: Last Vital Signs Temp 97.7 F 01/26/25 17:48 Pulse 115 H 01/26/25 17:48 Resp 18 01/26/25 17:48 BP 108/79 01/26/25 17:48 Pulse Ox 100 01/26/25 17:48 O2 Del Method Room Air 01/26/25 17:54 Common normals: oriented x3 Exam limitations: altered mental status General appearance: cooperative HENMT Common normals: moist oral mucous membranes Eye Common normals: PERRL, conjunctivae normal and no scleral icterus Neck & C-Spine Common normals: supple General: trachea midline Cervical spine: no cervical spine tenderness and no paracervical muscle tenderness Chest Chest: symmetrical chest wall rise Respiratory Common normals: normal respiratory effort Effort & inspection: able to speak in complete sentences and symmetric chest movement Cardio Common normals: regular rate GI Common normals: soft to palpation Palpation: tender Details: LLQ and RLQ Other: site appears to be healing well. Wound edges well-approximated. No drainage, bleeding, or erythema. Back & Pelvis Thoracic spine/upper back: normal to inspection; no thoracic spinal tenderness and no paraspinal muscle tenderness Lumbar spine/lower back: normal to inspection, lumbar spinal tenderness and paraspinal muscle tenderness Sacrum: tenderness; no ecchymosis and no erythema Coccyx: tenderness Neuro Common normals: oriented x3, moves all extremities and no focal motor deficits Sensorium/orientation: awake and alert Speech: speech normal Course Vital Signs Vital signs: Vital Signs Temperature 97.7 F 01/26/25 17:48 Pulse Rate 115 H 01/26/25 17:48 Respiratory Rate 18 01/26/25 17:48 Blood Pressure 108/79 01/26/25 17:48 Pulse Oximetry 100 01/26/25 17:48 Temperature 97.7 F 01/26/25 17:48 Pulse Rate 115 H 01/26/25 17:48 Respiratory Rate 18 01/26/25 17:48 Blood Pressure 108/79 01/26/25 17:48 Pulse Oximetry 100 01/26/25 17:48 Oxygen Delivery Method Room Air 01/26/25 17:54 Medical Decision Making MDM Narrative Medical decision making narrative: CT scan of the abdomen/pelvis was negative for acute findings; no fracture was noted per the radiologist. Findings were discussed with the patient. She was medicated for her discomfort here with Tylenol, oxycodone, and Zanaflex. She is going to discard her breast milk for the next 10 hours. Follow up with pcp for a recheck, further evaluation and treatment. Return to the ED for worsening symptoms. She was accompanied by family for a ride home. Medical Records Medical records reviewed: Yes I reviewed the patient's medical records Imaging Data CT: Attestation: I have reviewed the pertinent imaging results. Radiologist's impression: ITS Impressions Abdomen/Pelvis CT 01/26/25 17:56 IMPRESSION: Negative acute inflammatory process or bowel obstruction. Negative for nephrolithiasis or obstructive uropathy. Impression dictated by: Jorge L Cui M.D. 01/26/2025 7:08 PM Dictation Location: [place] [employer] Electronically authenticated by: [id number] Y Date: 01/26/2025 19:08 Discharge Plan Discharge Chief Complaint: Fall Clinical Impression: Fall, Coccygeal contusion, Abdominal pain Patient Disposition: Home, Self-Care Time of Disposition Decision: 19:56 Condition: Good Mode of Transportation: Private Vehicle Prescriptions / Home Meds: New oxycodone 5 mg tablet 5 mg PO Q8H PRN (Reason: pain) 4 Days Qty: 10 0RF Print Language: Danish Instructions: Coccyx Injury (ED), Acute Abdominal Pain (ED), Contusion in Adults (ED) Additional Instructions: Return to the ED for worsening symptoms. Referrals: HOLLY RAMIREZ [Primary Care Provider, Internal Medicine] - 1 week
[2025-01-26] MEDS: ACETAMINOPHEN 500 MG TABLET 1000 MG PO (18:05)
--- OUTSIDE RECORDS SUMMARY | 2025-01-26 18:08 | XMS_ITS | CCD ---
Author Organization [facility] Care Team Providers Care Global Compensation Analyst Name Role Phone Unavailable Primary Care Provider UnavailNILDA Ventura Referring Unavailable Jocelynn Koo Attending UnavailCarloz Paulino MD Primary Care Provider [phone] CARLOZ NELSON Attending Unavailable RAMIRO HUNTLEY Attending Unavailable DO Kj Mcclelland Attending Provider [phone] Kj Mcclelland Attending Unavailable Kj Mcclelland Admitting Unavailable No Pcp, No Pcp Primary Care Provider UnavailCarloz Paulino MD Primary Care Provider [phone] SANJUANITA NGUYEN Referring Unavailable CARLOZ NELSON Primary Care Unavailable KRJOE, SANJUANITA M Referring Unavailable CARLOZ NELSON B Primary Care Unavailable SANJUANITA NGUYEN M Referring Unavailable CARLOZ NELSON Primary Care Unavailable Carloz Nelson MD Primary Care Provider [phone] SANJUANITA NGUYEN Attending Unavailable WENDY, SANJUANITA M Referring Unavailable JAMES CARLOZ B Primary Care Unavailable KRANA CRISTINAZER, SANJUANITA M Referring Unavailable JAMES CARLOZ B Primary Care Unavailable KROTZER, SANJUANITA M Referring Unavailable JAMES CARLOZ B Primary Care Unavailable KROTZER, SANJUANITA M Attending Unavailable KRANA CRISTINAZER, SANJUANITA M Referring Unavailable JAMES CARLOZ B Primary Care Unavailable KROTZER, SANJUANITA M Referring Unavailable JAMES CARLOZ B Primary Care Unavailable DELICIA JOHNSTON Referring Unavailable CARLOZ NELSON B Primary Care Unavailable KROTZER, SANJUANITA M Referring Unavailable JAMES CARLOZ B Primary Care Unavailable KROTZER, SANJUANITA M Referring Unavailable JAMES CARLOZ B Primary Care Unavailable NETTIE LEES Referring Unavailable CARLOZ NELSON B Primary Care Unavailable DELICIA JOHNSTON Referring Unavailable CARLOZ NELSON Primary Care Unavailable DELICIA JOHNSTON Referring Unavailable NELSON, CARLOZ B Primary Care Unavailable ZIENTEK, NETTIE R Referring Unavailable NELSON, CARLOZ B Primary Care Unavailable MACMAINDELICIA M Referring Unavailable NELSON, CARLOZ B Primary Care Unavailable EMMETT WILKINSON Attending Unavailable LAWLER, ALESSANDRO Referring Unavailable NELSON, CARLOZ B Primary Care Unavailable MACMAIN, DELICIA M Referring Unavailable NELSON, CARLOZ B Primary Care Unavailable EMMETT WILKINSON Attending Unavailable EMMETT WILKINSON Referring Unavailable NELSON, CARLOZ B Primary Care Unavailable TREVOR HURD Admitting Unavailable TREVOR HURD Attending Unavailable NELSON, CARLOZ B Primary Care Unavailable KRSANJUANITA DIAZ Attending Unavailable KRSANJUANITA DIAZ M Referring Unavailable NELSON, CARLOZ B Primary Care Unavailable JOANIE VELARDE Admitting Unavailable NELSON, CARLOZ B Primary Care Unavailable DELICIA EGAN Attending Unavailable KROTSANJUANITA GOLDBERG Attending Unavailable NELSON, CARLOZ B Referring Unavailable NELSON, CARLOZ B Primary Care Unavailable NELSON, CARLOZ B Referring Unavailable NELSON, CARLOZ B Primary Care Unavailable MACDELICIA HAMMOND Attending Unavailable NELSON, CARLOZ B Referring Unavailable NELSON, CARLOZ B Primary Care Unavailable NELSON, CARLOZ B Referring Unavailable NELSON, CARLOZ B Primary Care Unavailable NELSON, CARLOZ B Referring Unavailable NELSON, CARLOZ B Primary Care Unavailable NELSON, CARLOZ B Referring Unavailable NELSON, CARLOZ B Primary Care Unavailable KRSANJUANITA DIAZ M Attending Unavailable NELSON, CARLOZ B Referring Unavailable NELSON, CARLOZ B Primary Care Unavailable KROTZER, SANJUANITA M Referring Unavailable NELSON, CARLOZ B Primary Care Unavailable RADHA, ALESSANDRO Attending Unavailable KRSANJUANITA DIAZ M Referring Unavailable NELSON, CARLOZ B Primary Care Unavailable IAIN, JAVIER Attending Unavailable KROTZER, SANJUANITA M Referring Unavailable NELSON, CARLOZ B Primary Care Unavailable NELSON, CARLOZ B Referring Unavailable NELSON, CARLOZ B Primary Care Unavailable ALICE MICHEL Attending Unavailable YOANA, NETTIE R Referring Unavailable NELSON, CARLOZ B Primary Care Unavailable NELSON, CARLOZ B Referring Unavailable NELSON, CARLOZ B Primary Care Unavailable DELICIA JOHNSTON Attending Unavailable SANJUANITA NGUYEN Attending Unavailable NELSON, CARLOZ B Referring Unavailable NELSON, CARLOZ B Primary Care Unavailable SANJUANITA NGUYEN M Attending Unavailable NELSON, CARLOZ B Referring Unavailable NELSON, CARLOZ B Primary Care Unavailable NELSON, CARLOZ B Referring Unavailable CARLOZ NELSON B Primary Care Unavailable JADAANNASANJUANITA Attending Unavailable CARLOZ NELSON B Referring Unavailable CARLOZ NELSON B Primary Care Unavailable MANDOSANJUANITA DIAZ M Attending Unavailable CARLOZ NELSON B Referring Unavailable CARLOZ NELSON B Primary Care Unavailable SANJUANITA NGUYEN Attending Unavailable CARLOZ NELSON B Referring Unavailable CARLOZ NELSON B Primary Care Unavailable JADAANNASANJUANITA Attending Unavailable CARLOZ NELSON B Referring Unavailable CARLOZ NELSON B Primary Care Unavailable JON HAHN Attending Unavailable CARLOZ NELSON B Referring Unavailable CARLOZ NELSON B Primary Care Unavailable Allergies Allergy ClassificationReported Allergen(s)Allergy TypeDate of OnsetReaction(s) Facility (1 source)No Known Medication Allergies; Translations: [No Known Medication Allergies]Propensity to adverse reactions to drug (disorder)[facility] Repository (5 sources)Azithromycin; Translations: [AZITHROMYCIN]Drug [id number] Itching, [facility] Current Medications MedicationDrug Class(es)DatesSig (Normalized)Sig (Original)acetaminophen 500 mg oral tablet (9 sources)Start: 36-89-8708baqs 2 tablets by mouth every eight hours as needed for painacetaminophen (TYLENOL EXTRA STRENGTH) 500 mg tablet Indications: delivery delivered , care following delivery Take 2 tablets (1,000 mg total) by mouth every 8 (eight) hours as needed for pain. 60 tablet 1 12/27/2024 ActiveStart: 30-71-9555jmdt 1 tablet by mouth every eight hours1,000 mg, oral, Every 8 hours, First dose on Sat12/25/24 at 0100, , Alternate administration every 4 hours with ketorolac or ibuprofen Start: 12-24-2024 End: 96-36-1037Ilqvvctx on Sat12/24/24 at 2035, For 1 dose, Tre Nur: sapphire overrideStart: 12-24-2024 End: 53-08-4005libr 1000 mg by mouth once1,000 mg, oral, Once, On Stephani 12/24/24 at 2015, For 1 dose, L&D Pre-DeliveryStart: 12-23-2024 End: 72-54-4192qczn 1 tablet by mouth every four hours as needed for znct686 mg, oral, Every 4 hours PRN, mild pain - pain scale 1-3, Starting on 12/23/24 at 1733, L&D Pre-DeliveryAcetaminophen (TYLENOL) 325 MG CAPS Take by mouth 0 Activeatomoxetine 25 mg oral capsule (5 sources)Norepinephrine Reuptake InhibitorStart: 08-28-2023 End: 52-24-2952ezab 1 capsule by mouth in the morning, then take 1 capsule by mouth at bedtimeatomoxetine (STRATTERA) 25 mg capsule Take 1 capsule (25 mg total) by mouth in the morning and 1 capsule (25 mg total) before bedtime. 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 Take 1000mg (two tablets) on day one followed by 500 mg (one tablet) daily for the next three days 5 tablet 08/03/2024 08/06/2024 Activebisacodyl 10 mg rectal suppository (1 source)Stimulant LaxativeStart: 13-50-817874 mg, rectal, Once as needed, constipation, no relief from docusate or senna/docusate, Starting onFri 12/25/24 at 0000, For 1 dose, , Start 2nd day Look-alike/sound-alike medication - verify indication for use.1 ml carboprost 0.25 mg/ml injection (2 sources)Prostaglandin AnalogStart: 71-00-3026xdvodi 250 ug by intramuscular injection once as wzuzki212 mcg, intramuscular, Once as needed, hemorrhage management, Starting on Stephani 12/24/24 at 2242, For 1 dose, , Administer as directed by provider for Hemorrhage management. DO NOT ADMINISTER IV. Contraindicated if patient has a history of asthma or cardiovascular diseasedocusate sodium 100 mg oral capsule (5 sources)Start: 44-93-8783ipym 1 capsule by mouth twice daily as needed for constipationdocusate sodium (COLACE) 100 mg capsule Indications: delivery delivered , care following delivery Take 1 capsule (100 mg total) by mouth 2 (two) times a day as needed forconstipation. 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 Do all this for 7 days. 13 capsule 12/27/2024 01/03/2025 ActiveStart: 12-27-2024 End: 84-07-7776364 mg, oral, 2 times daily, First dose [...] mg oral tablet (8 sources)Nonsteroidal Anti-inflammatory DrugStart: 51-47-8644ecjk 1 tablet by mouth every eight hours as needed for painibuprofen (MOTRIN) 800 mg tablet Indications: delivery delivered , care following delivery Take 1 tablet (800 mg total) by mouth every 8 (eight) hours as needed for pain.30 tablet 1 12/27/2024 ActiveStart: 07-23-2021 End: 83-03-8058dhhj 1 tablet by mouth every eight hours [...] mg oral tablet (20 sources)Start: 09-18-2024 End: 05-54-8067ljhj 1 tablet by mouth once dailymagnesium oxide (MAGOX) 400 mg tablet Indications: Restless leg syndrome in , Sleep disturbance Take 1 tablet (400 mg total) by mouth nightly. 30 tablet 4 12/11/2024 Active1 ml methylergonovine maleate 0.2 mg/ml injection (2 sources)Ergot DerivativeStart: 20-30-3754811 mcg, intramuscular, Once as needed, hemorrhage treatment, [...] oral tablet (3 sources)Nitroimidazole AntimicrobialStart: 07-29-2024 End: 25-41-7902bjpk 1 tablet by mouth in the morning, then take 1 tablet by mouth at bedtimemetroNIDAZOLE (FLAGYL) 500 mg tablet Indications: BV (bacterial vaginosis) Take 1 tablet (500 mg total) by mouth in the morning and 1 tablet (500 mg total) before bedtime. Do all this for 7 days. 14 tablet 07/29/2024 08/05/2024 ActiveStart: 05-21-2024 End: 16-39-7243uxml 1 tablet by mouth in the morning, then take 1 tablet by mouth at bedtimemetroNIDAZOLE (FLAGYL) 500 mg tablet Indications: BV (bacterial vaginosis) Take 1 tablet (500 mg total) by mouth in the morning and 1 tablet (500 mg total) before bedtime. Do all this for 7 days. 14 tablet 05/21/2024 05/28/2024 ActivemiSOPROStol 0.2 mg oral tablet (2 sources)Prostaglandin E1 AnalogStart: 10-43-7574izeb 800 ug under the tongue once as mcg, sublingual, Once as needed, hemorrhage treatment, [...] capsule (4 sources)Proton Pump InhibitorStart: 11-19-2024 End: 83-20-1578kahq 1 capsule by mouth in the morningomeprazole (PriLOSEC) 20 mg capsule Take 1 capsule (20 mg total) by mouth in the morning. 30 capsule 1 11/19/2024 12/11/2024 Discontinued (Therapy completed)2 ml ondansetron 2 mg/ml injection (5 sources)Serotonin-3 Receptor AntagonistStart: 97-55-9967dkak 4 mg intravenously every four hours as needed for nausea and vomiting4 mg, intravenous, Every 4 hours PRN, nausea, vomiting, Starting on 12/25/24 at 0011, Intravenous administration preferred to be given over 2-5 minutes.Start: 12-24-2024 End: 95-65-2024kwpr 4 mg intravenously every six hours as needed for nausea and vomiting4 mg, intravenous, Every 6 hours PRN, nausea, vomiting, Starting on Stephani 12/24/24 at 1746, Intravenous administration preferred to be given over 2-5 minutes.Start: 09-23-2023 End: 33-24-5126haut 1 tablet by mouth every six hours as needed for nausea and vomitingondansetron ODT (Zofran-ODT) 4 MG disintegrating tablet DISSOLVE 1 TABLET IN MOUTH EVERY 6 HOURS ASNEEDED FOR NAUSEA AND VOMITING 09/23/2023 12/12/2023 DiscontinuedoxyCODONE hydrochloride 5 mg oral tablet (5 sources)Opioid AgonistStart: 12-27-2024 End: 24-41-8499eocm 1 tablet by mouth every six hours [...] - verify indication for use. Immediate release.Start: 87-85-8788invi 1 tablet by mouth every four hours as needed for pain5 mg, oral, Every 4 hours PRN, moderate pain - pain scale 4-6, breakthrough pain, Starting on Stephani 12/24/24 at 2242, , Look-alike/sound-alike medication - verify indication for use. Immediate release.Start: 12-13-2023 End: 20-07-4456jwkv 1 tablet by mouth every six hours as needed for pain oxyCODONE (ROXICODONE) 5 mg immediate release tablet Indications: Status post laparoscopic appendectomy , Postoperative pain Take 1 tablet (5 mg total) by mouth every 6 (six) hours as needed for painfor up to 5 days. Max Daily Amount: 20 mg 12 tablet 12/13/2023 12/18/2023 Active1 ml oxytocin 10 unt/ml injection (2 sources)OxytocicStart: 34-28-8888vbaeth 10 [IU] by intramuscular injection once as ohnmqh10 Units, intramuscular, Once as needed, hemorrhage treatment, Starting on Stephani 12/24/24 at 2242, For 1 dose, , administer as directed by provider for Hemorrhage managementoxytocin (PITOCIN) bolus from bag solution 10 Units (1 source)Start: 90-00-030634 Units, intravenous, Administer over 30 Minutes, Once [...] ac ( ORAL) Take by mouth. ActivePNV,calcium 21-esxm-ncgmo acid ( PLUS) 27 mg iron- 1 mg tablet 1 tablet (1 source)Start: 72-77-0021utkv 1 tablet by mouth once daily1 tablet, oral, Daily, First dose on Sat12/25/24 at 0900, Postpartumpolyethylene glycol 3350 74781 mg powder for oral solution (13 sources)Osmotic LaxativeStart: 56-06-107976 g, oral, Daily, First dose on Sat12/25/24 at 0900, , Look-alike/sound-alike medication - verify indication for use. Dissolve 1 packet (17 gm) in 8 ounces of water, juice, soda, coffee or tea.Start: 10-09-2024 End: 60-90-4559foplnaitfxqr glycol (GLYCOLAX) 17 gram/dose powder Indications: Constipation during in third trimester Take 17 g by mouth in the morning. 510 g 3 10/09/2024 11/09/2024 Discontinued (Therapycompleted)pyridoxine hydrochloride 25 mg oral tablet (9 sources)Start: 05-13-2024 End: 12-71-5685alppdfjenc, vitamin B6, (B-6) 25 mg tablet Indications: Nausea/vomiting in Take 1 tablet (25 mg total) by mouth in the morning and 1 tablet (25 mg total) at noon and 1 tablet (25 mg total) in the evening and 1 tablet (25 mg total) before bedtime. 120 tablet 1 05/13/2024 07/15/2024 Discontinued (Patient Never Started This Medication)simethicone 80 mg chewable tablet (1 source)Start: 32-81-285646 mg, oral, 4 times daily before meals and at bedtime as needed, flatulence, abdominal discomfort caused by gas and distension, Starting on Stephani 12/24/24 at 2242, , Maximum dose 500 mg rwiaw795 ml sodium chloride 9 mg/ml prefilled syringe (5 sources)Start: mL, intravenous, Every 12 hours scheduled, First dose on Sat12/23/24 at 2100, PostpartumStart: mL, intravenous, As needed, line care, before and after each intermittent use, Starting on Sat at 1734, PostpartumStart: 10-27-2024 End: 81-89-9153uxwx 25 mL intravenously every hour as ialiwh35 mL/hr, intravenous, Continuous PRN, When mainline IV needed., Starting on Sat10/27/24 at 1335, Match IVF to base solution of product being administered to ensure compatibility.Start: 10-16-2024 End: 07-12-0392emhq 25 mL intravenously every hour as mL/hr, intravenous, Continuous PRN, When mainline IV needed., Starting on Sat10/16/24 at 1349, Match IVF to base solution of product being administered to ensure compatibility.Start: 10-13-2024 End: 22-99-7078vkzc 25 mL intravenously every hour as adtlue12 mL/hr, intravenous, Continuous PRN, When mainline IV needed., Starting on Sat10/13/24 at 1331, Match IVF to base solution of product being administered to ensure compatibility.10 ml tranexamic acid 100 mg/ml injection (3 sources)Antifibrinolytic AgentStart: 99-35-7127jssp 1 dose intravenously once 1,000 mg, intravenous, [...] oral capsule (3 sources)Cephalosporin AntibacterialStart: 09-23-2023 End: 03-19-3919qkwx 1 capsule by mouth every eight hourscephalexin (Keflex) 500 MG capsule TAKE 1 CAPSULE BY MOUTH EVERY 8 HOURS FOR 7 DAYS 09/23/202312/11 Discontinuedcitric acid 66.8 mg/ml / sodium citrate 100 mg/ml oral solution (1 source)Calculi Dissolution Agent, Anti-coagulantStart: 12-24-2024 End: 33-24-1934cvwa 1 dose by mouth every hour30 mL, oral, Once, On Stephani 12/24/24 at 2014, For 1 dose, L&D Pre-Delivery, Within one hour priorto transfer to surgical suite Look-alike/sound-alike medication - verify indication for use.50 ml clindamycin 12 mg/ml injection (3 sources)Lincosamide AntibacterialStart: 12-23-2024 End: 54-62-2795Vjocyhva on Sat12/23/24 at 1957, For 1 dose, Tre Nur: sapphire overrideStart: 12-23-2024 End: 95-01-9252ewjb 600 mg intravenously every eight ydulk533 mg, intravenous, at 100 mL/hr, Administer over [...] mg oral tablet (20 sources)Start: 09-18-2024 End: 24-35-1672hope 1 tablet by mouth once dailydoxylamine (UNISOM, DOXYLAMINE,) 25 mg tablet Indications: Sleep disturbance Take 1 tablet (25 mg total) by mouth nightly. 30 tablet 09/18/2024 11/06/2024 Discontinued (Therapy completed) Start: 05-13-2024 End: 84-64-7432nebl 1 tablet by mouth once daily as [...] mg oral tablet (15 sources)Start: 09-21-2024 End: 00-39-6845yrcf 1 tablet by mouth in the morningferrous sulfate 325 (65 FE) MG tablet Indications: Iron deficiency anemia secondary to inadequate dietary iron intake Take 1 tablet (325 mg total) by mouth in the morning. 30 tablet 3 09/21/2024 11/09/2024 Discontinued (Therapy completed)iron sucrose (VENOFER) 200 mg in sodium chloride 0.9 % 100 mL IVPB (3 sources)Start: 10-27-2024 End: 35-59-5675096 mg, intravenous, at 440 mL/hr, Administer over [...] equipment and medicati ons available.Start: 10-16-2024 End: mg, intravenous, at 440 mL/hr, Administer over [...] equipment and medicat ions available.Start: 10-13-2024 End: 70-69-9676923 mg, intravenous, at 440 mL/hr, Administer over [...] sources)Nonsteroidal Anti-inflammatory Drug, Cyclooxygenase InhibitorStart: 09-23-2023 End: 39-96-0748ymst 1 tablet by mouth three times daily as needed for pain ketorolac (Toradol) 10 MG tablet TAKE 1 TABLET BY MOUTH 3 TIMES A DAY NEEDED FOR PAIN Discontinued1 ml nalbuphine hydrochloride 10 mg/ml injection (1 source)Opioid Agonist/AntagonistStart: 12-24-2024 End: 79-10-2612ghfpts 10 mg by intramuscular injection every three hours as needed for pain and pain10 mg, intramuscular, Every 3 hours PRN, moderate pain - pain scale 4-6, severe pain - pain scale 7-10, Starting on Stephani 12/24/24 at 0555, Look-alike/sound-alike medication - verify indication for use. 57-bloc-lqbxqd 9-dha 31 mg iron- 1 mg-200 mg capsule (20 sources)Start: 05-05-2024 End: 28-22-1947hbls 1 capsule by mouth in the morningprenatal 21-ojyq-ipvmru 9- dha 31 mg iron- 1 mg-200 mg capsule Indications: First trimester Take 1 capsule by mouth in the morning. 90 capsule 3 05/05/2024 11/09/2024 Discontinued (Therapy completed)Start: 03-23-7869duas 1 capsule by mouth in the morningprenatal 85-nvhf-wyhdnt 9-dha 31 mg iron- 1 mg-200 mg capsule Indications: First trimester Take 1 capsule by mouth in the morning. 90 capsule 3 05/05/2024 Active Problems Active Problems Problem ClassificationProblemDateDocumented DateEpisodic/ChronicAbdominal pain (2 sources)Lower abdominal pain; Translations: [Lower abdominal pain, unspecified]28-20-1397TflmqjpeOlhlybxks infection; unspecified site (20 sources)Mycoplasma infection, unspecified site; Translations: [Other specified bacterial infections in conditions classified elsewhere and of unspecified site, mycoplasma]Onset: 05-21-2024 Resolved: 46-69-671016449790-00-7436XobtrtbxPslcjxd dysrhythmias (1 source)PalpitationsOnset: 70-48-1698OpvmkkghCcrlwaazltnht of surgical procedures or medical care (2 sources)Wound pain ; Translations: [Other postprocedural complications of skin and subcutaneous tissue]63-81-0449IudbpsqfDnddvwazus associated with dizziness or vertigo (1 source)DizzinessOnset: 37-80-1650LusxxnivRsvwjsgreo and other anemia (1 source)Iron deficiency anemia, unspecified; Translations: [Iron deficiency anemia, unspecified]Onset: 57-38-6949EmnaxhtqTsdtpyyu; including migraine (20 sources)Transformed migraine; Translations: [Chronic migraine with aura] Onset: 07-15-2024 Resolved: 049581-83-1712MkunjssScbpzftc; including migraine (3 sources)Headache; including migraine; Translations: [Headache, unspecified] Onset: 13-90-8995Azilfcjsesrq complicating ; childbirth and the puerperium (1 source)Pre-eclampsiaOnset: 32-08-1830DuyyzhkjKvgoigucsudtc and screening for infectious disease (15 sources)Patient encounter status; Translations: [Encounter for screening for infections with a predominantly sexual mode of transmission]Onset: 07-29-2024 63-06-5137KtunbwnmAmyadrkor disorders (1 source)Menstrual period late; Translations: [Late menses]ChronicOther complications of ; puerperium affecting management of mother (6 sources)Deliveries by ; Translations: [Encounter for delivery without indication]Onset: 470923-09-7965XlyoaexwWvddt complications of ; puerperium affecting management of mother (2 sources)Encounter for delivery without indication; Translations: [Encounter for delivery without indication]Onset: 67-79-5396Uobrehlo Other complications of (1 source)Anemia of ; Translations: [Anemia complicating , third trimester]45-43-7750WgvlplaNmele complications of (2 sources)Vomiting of , unspecified; Translations: [Unspecified vomiting of , unspecified as to episode of care or not applicable] 67-62-8872IvebstutKxmpb complications of (1 source)Headache; Translations: [Other specified related conditions, first trimester]92-60-3780WijbgckyPoorw complications of (1 source)Fatigue during ; Translations: [ related exhaustion and fatigue, second trimester]95-54-8424YynpneejJbwye complications of (2 sources)Diseases of the digestive system complicating , third trimester; Translations: [Other current conditions classifiable elsewhere of mother, antepartum condition or complication]Onset: 053587-06-0640Zscexihh Other complications of (1 source)Uterine size for dates discrepancy; Translations: [Uterine size-date discrepancy, third trimester]22-29-5024RqqlkgjpVinat complications of (1 source)Uterine size-date discrepancy, third trimester; Translations: [Uterine size-date discrepancy, thirdtrimester]Onset: 86-16-2571TbzniplnYxycs complications of (1 source)Other specified related conditions, third trimester; Translations: [Other specified related conditions, third trimester] Onset: 07-31-1390VeiukoggOpeow gastrointestinal disorders (1 source)Constipation, unspecified; Translations: [Constipation, unspecified] Onset: 74-60-2784LbcivxkrGftts hereditary and degenerative nervous system conditions (2 sources)Restless legs syndrome; Translations: [Restless legs syndrome]Onset: 01-96-4918AxdmpxyLbfqy lower respiratory disease (1 source)Shortness of breathOnset: 76-42-8960NostwsluYmhmv nervous system disorders (4 sources)H/O: migraine; Translations: [Personal history of other diseases of the nervous system and sense organs]23-43-0144WwfyoeqkBiyrw and delivery including normal (20 sources)First trimester ; Translations: [Encounter for supervision of normal , unspecified, first trimester]Onset: 05-11-2024 Resolved: 793047-67-4262HicajffjNsjudfqb codes; unclassified (1 source)Gestation period, 18 weeks; Translations: [18 weeks gestation of ]87-81-1988EfzsiruhAextvaqi codes; unclassified (1 source)Gestation period, 21 weeks; Translations: [21 weeks gestation of ]58-13-5296NduylhdhPmnszczo codes; unclassified (17 sources)History of delivery of macrosomal infant; Translations: [Personal history of other complications ofpregnancy, childbirth and the puerperium]Onset: 732721-80-4782QezfiiolWtwtooqp codes; unclassified (3 sources)Disturbance in sleep behavior; Translations: [Sleep disorder, unspecified]33-93-4346VdkulhmjKzzkqnou codes; unclassified (2 sources)28 weeks gestation of ; Translations: [28 weeks gestation of ]Onset: 66-35-1079UlxpmbneTwygxof disorders (20 sources)Subclinical hypothyroidism; Translations: [Other specified hypothyroidism]Onset: 09-21-2024 Resolved: 794265-28-3178RhoblyxUqejarufudnm (1 source)Scheduled InductionOnset: 13-01-0097Covsozktdhvi (1 source)Decreased MovementOnset: 97-63-0562Tmysjihdkawl (2 sources)New PatientOnset: 38-36-9742Pcvohupsfdhs (1 source)Rapid Heart RateOnset: 71-63-7349Ekbfpttufmvw (1 source)Outpatient InfusionOnset: 62-15-8698Iytmdvhoteab (2 sources)Other specified diseases and conditions complicating ; Translations: [Other specified diseases and conditions complicating ] Onset: 78-88-0733Tvwxbloqgjue (1 source)Routine VisitOnset: 98-84-9204Badvasrqwaqd (1 source)STD ScreeningOnset: 94-31-0591Hwzfkstdkeqf (1 source)Initial VisitOnset: 05-05-2024 Past or Other Problems Problem ClassificationProblemDateDocumented DateEpisodic/ChronicAllergic reactions (3 sources)Hand eczema; Translations: [Dermatitis, unspecified]Onset: 08-28-2023 38-18-5651ZxrfigouPshcxeuso and vision defects (20 sources)Visual disturbance; Translations: [Unspecified visual disturbance] Onset: 06-17-2024 Resolved: 025667-81-6178LppcjlvyXlfpmbpwfn and other anemia (20 sources)Iron deficiency anemia secondary to inadequate dietary iron intake; Translations: [Other iron deficiency anemias]Onset: 09-21-2024 Resolved: 334593-44-9510SdvxalmuOiacsrdwwq and other anemia (20 sources)Iron deficiency anemia; Translations: [Iron deficiency anemia, unspecified]Onset: 10-09-2024 Resolved: 002141-44-0699XxfywpjrGullnvrjhmyc diseases of female pelvic organs (5 sources)Acute vaginitis; Translations: [Acute vaginitis]Onset: 05-20-2024 26-84-3356PdozajldLsuk disorders (2 sources)Mood disordersOnset: Other complications of (20 sources)Back pain complicating ; Translations: [Back pain affecting in first trimester]Onset: 05-20-2024 Resolved: 820160-08-1951CblsnuzwZszep complications of (20 sources)Bacterial vaginosis in ; Translations: [Infection of other part of genital tract in , unspecified trimester]Onset: 05-21-2024 Resolved: 204350-13-4795AxguwagkVcyve complications of (3 sources)Other specified related conditions, first trimester; Translations: [Other specified related conditions, first trimester] Onset: 60-25-4148FaghxxujIacxu complications of (5 sources)Diseases of the nervous system complicating , unspecified trimester; Translations: [Other current conditions classifiable elsewhere of mother, unspecified as to episode of care or not applicable]Onset: 09-18-2024 48-41-7296TmggpihrAseyu complications of (2 sources) related exhaustion and fatigue, second trimester; Translations: [ related exhaustion and fatigue, second trimester]Onset: 07-52-1573YrkimrhiJyvfn complications of (1 source)Infection of other part of genital tract in , unspecified trimester; Translations: [Infection of other part of genital tract in , unspecified trimester]Onset: 24-81-0293WgcetobvZbulm injuries and conditions due to external causes (20 sources)H/O: injury; Translations: [Personal history of other (healed) physical injury and trauma]Onset: 05-20-2024 Resolved: 000302-22-8052DsonsonlQptgj injuries and conditions due to external causes (2 sources)Personal history of other (healed) physical injury and trauma; Translations: [Personal history of other (healed) physical injury and trauma] Onset: 50-57-1356VncwwadjWepil nervous system disorders (1 source)Postoperative pain ; Translations: [Other acute postprocedural pain] 76-96-5284ZeztllhlOhksa nervous system disorders (1 source)Personal history of other diseases of the nervous system and sense organs; Translations: [Personal history of other diseases of the nervous system and sense organs]Onset: 64-15-1996ZgvpzvqrZzyxk skin disorders (3 sources)Butterfly rash; Translations: [Rash and other nonspecific skin eruption]Onset: 769671-39-0194VtrmolrlOcdfyfmm codes; unclassified (2 sources)Acquired absence of other specified parts of digestive tract; Translations: [Other postprocedural status]36-64-8665FdxwbfqkMhyxzaei codes; unclassified (20 sources)Gestation period, 28 weeks; Translations: [28 weeks gestation of ]Onset: 10-09-2024 Resolved: 677000-76-4525NsrbjseqOymxpbfr codes; unclassified (2 sources)Sleep disorder, unspecified; Translations: [Sleep disorder, unspecified]Onset: 84-06-2599VjjnxbqxGqwprrjs codes; unclassified (1 source)Personal history of other complications of , childbirth and the puerperium; Translations: [Personal history of other complications of , childbirth and the puerperium]Onset: 66-34-4416QgiqwerhVfpzxmdavun; intervertebral disc disorders; other back problems (2 sources)Dorsalgia, unspecified; Translations: [Dorsalgia, unspecified]Onset: 04-43-9413XppnhjtwYmadbrf (20 sources)Syncope and collapse; Translations: [Syncope and collapse]Onset: 07-15-2024 Resolved: 574509-05-6898ApexvgzzUsiyhpmjsmrk (20 sources)Onset: 016338-58-5227OBPLADF: Highlighted row has been ruled out!Unclassified (5 sources)No known active bvyeaqfq51-14-2273 Results Test NameValueInterpretationReference RangeFacilityCBC (NO DIFF)on 12-25-2024 Erythrocyte distribution width (RBC) [Ratio]15.0 %Zdkzwn15.5-15[facility] Hospital - CincinnatiComment on above:Performed By: #### CBC, 51451-1, 19886-6, AHP, 92694- 5, 35785-4, 82614-0 #### [facility] ([id number]) [address], [address] [place], [place] [address]Wlsammotfg (Bld) [Volume fraction]33.5 %Ufq75-20PzvGiyczmDell Children'S Medical CenterComment on above:Performed By: #### CBC, 68197-0, 11051-9, AHP, 28752-4, 24049-5, 78214-8 #### [facility] ([id number]) [address], [address] [place], [place] [address]Xfgbuyfqsa (Bld) [Mass/Vol]11.3 g/dLLow11.7-15.5PHenry County HospitalComment on above:Performed By: #### CBC, 86394-0, 26642-1, AHP, 04931-5, 57953-0, 11315-1 #### [facility] ([id number]) [address], [address] [place], [place] [address]UYA (RBC) [Entitic mass]29.8 ajDdxusr89-18LzxQgexycSelect Medical Specialty Hospital - CincinnatiComment on above:Performed By: #### CBC, 79055-8, 27620-1, AHP, 64851-7, 12956-5, 93174-5 #### [facility] ([id number]) [address], [address] [place], [place] [address]QMWG (RBC) [Mass/Vol]33.9 g/kIFvdefq35-12DirJcrtmmDell Children'S Medical CenterComment on above:Performed By: #### CBC, 24459-8, 60221-7, AHP, 34144-6, 03215-2, 26334-8 #### [facility] ([id number]) [address], [address] [place] [address]XWL (RBC) [Entitic vol]88 aVBrcqqn80-352KipIfkdtt [facility]remont HospitalComment on above:Performed By: #### CBC, 75768-8, 36851-6, AHP, 77057-2, 94323-8, 23753-5 #### [facility] ([id number]) [address], [address] [place] [address]Hvkzmhmi mean volume (Bld) [Entitic vol]9.9 fLNormal7-12 ProMedicFountain Valley Regional Hospital and Medical CenterComment on above:Performed By: #### CBC, 89133-9, 42896-0, AHP, 93306-4, 79426-2, 98288-1 #### [facility] ([id number]) [address], [address] [place], [place] [address]Akdelsxks (Bld) [#/Vol]187 10*3/sQDghmtt168-295SevNgbgph [facility] HospitalComment on above:Performed By: #### CBC, 04413-3, 87431-4, AHP, 14171- 5, 16613-2, 01339-4 #### [facility] ([id number]) [address], [address] [place], [place] [address]ECB COUNT3.81 X10E12/LNormal3.8-5.2PHenry County Hospital Comment on above:Performed By: #### CBC, 13046-8, 03327-1, AHP, 42723-1, 98475- 4, 76011-6 #### [facility] ([id number]) [address], [address] [place], [place] [address]FKR (Bld) [#/Vol]14.6 10*3/uLHigh4-11[facility] Comment on above:Performed By: #### CBC, 99175-7, 45348-2, AHP, 26878-2, 46805- 4, 40625-4 #### [facility] ([id number]) [address] [place], [place] [address]JWA without diffon 45-51-1763Aknfxhhthke distribution width (RBC) [Ratio]15.0 %11.5 - 15 %[facility] HospitalHematocrit (Bld) [Volume fraction]33.5 %Low35 - 47 %[facility] HospitalHemoglobin (Bld) [Mass/Vol] 11.3 g/dLLow11.7 - 15.5 g/dLCleveland Clinic Fairview HospitalInterpretation and review of laboratory resultsAbnormalCleveland Clinic Fairview HospitalMCH (RBC) [Entitic mass]29.8 pg 27 - 34 [facility] HospitalMCHC (RBC) [Mass/Vol]33.9 g/dL32 - 36 g/dL [facility] HospitalMCV (RBC) [Entitic vol]88 fL80 - 100 [facility] NorthlandPlatelet mean volume (Bld) [Entitic vol]9.9 fL7 - 12 [facility] NorthlandPlatelets (Bld) [#/Vol]187 10*3/[facility] CenterRBC (Bld) [#/Vol] 3.81 10*6/[facility] CenterWBC LM Ql (Sput)14.6HighUniversity Health Truman Medical Centeryphilis Total (Unknown Syphilis Status)on 12-24-2024T. pallidum IgG+IgM IA Ql (S)[facility] CenterT. pallidum IgG+IgM IA Ql (S)on 85-34-1342Udrmvjokhhwkhw and review of laboratory results NormalCleveland Clinic Fairview HospitalNON REACTIVE No serologic evidence of infection to Treponema pallidum. Repeat testing may be considered in patients with suspected acute or primary syphilis in 2 to 4 weeks. [facility] Coord[facility] HealthCBC (NO DIFF)on 12-23-2024 Erythrocyte distribution width (RBC) [Ratio]14.9 %Jevdjm58.5-15[facility] Hospital - CincinnatiComment on above:Performed By: #### CBC, 28115-9, 36468-0, P, 60874- 5, 99829-0, 63063-4 #### [facility] ([id number]) [address], [address] [place], [place] [address]Anvzxdyaap (Bld) [Volume fraction]39.9 %Owhvyn71-53TinNckrezDell Children'S Medical CenterComment on above:Performed By: #### CBC, 84488-8, 65141-4, AHP, 06915-1, 90179-9, 76617-8 #### [facility] ([id number]) [address], [address] [place], [place] [address]Yjqbihfjhz (Bld) [Mass/Vol]13.4 g/nLTnejue51.7-15.5PHenry County HospitalComment on above:Performed By: #### CBC, 97801-7, 26441-3, AHP, 18106-9, 23191-7, 37215-5 #### [facility] ([id number]) [address], [address] [place], [place] [address]UAR (RBC) [Entitic mass]29.2 nmRbvkkr83-84FcfPffyrsDell Children'S Medical CenterComment on above:Performed By: #### CBC, 32403-7, 32285-8, AHP, 58100-1, 08803-2, 61225-7 #### [facility] ([id number]) [address], [address] [place], [place] [address]LSHR (RBC) [Mass/Vol]33.7 g/uGDcqbmd09-94GxyWehrzwDell Children'S Medical CenterComment on above:Performed By: #### CBC, 71856-1, 08039-3, AHP, 64202-3, 99870-4, 82339-2 #### [facility] ([id number]) [address], [address] [place], [place] [address]UBO (RBC) [Entitic vol]87 mWEgceio65-213GaiJrkned [facility] HospitalComment on above:Performed By: #### CBC, 60852-6, 98669-8, AHP, 77683-4, 77574-0, 55745-6 #### [facility] ([id number]) [address], [address] [place] [address]Yvgmdtqk mean volume (Bld) [Entitic vol]9.6 fLNormal7-12 [facility] - CincinnatiComment on above:Performed By: #### CBC, 40915-8, 20049-6, AHP, 28133-9, 68519-6, 71681-2 #### [facility] ([id number]) [address], [address] [place] [address]Dhpdgvbdb (Bld) [#/Vol]208 10*3/iPVzhqfa174-359NnyDujhvcSelect Medical Specialty Hospital - CincinnatiComment on above:Performed By: #### CBC, 67780-8, 38427-9, AHP, 76128- 5, 31959-1, 22212-2 #### [facility] ([id number]) [address], [address] [place] [address]SMQ COUNT4.59 X10E12/LNormal3.8-5.2PHenry County Hospital Comment on above:Performed By: #### CBC, 33205-4, 84859-6, AHP, 40646-0, 72708- 4, 57835-5 #### [facility] ([id number]) [address], [address] [place] [address]HSY (Bld) [#/Vol]8.6 10*3/uLNormal4-11[facility] Comment on above:Performed By: #### CBC, 52642-2, 80369-9, AHP, 01374-6, 72942- 4, 92654-8 #### [facility] ([id number]) [address], [address] [place] [address]DLZ without diffon 88-66-2917Rnotcyutrmt distribution width (RBC) [Ratio]14.9 %11.5 - 15 %[facility] HospitalHematocrit (Bld) [Volume fraction]39.9 %35 - 47 %[facility] HospitalHemoglobin (Bld) [Mass/Vol]13.4 g/dL11.7 - 15.5 g/dLCleveland Clinic Fairview HospitalInterpretation and review of laboratory resultsNormalFayette County Memorial HospitalH (RBC) [Entitic mass]29.2 pg27 - 34 pgPAdena Fayette Medical CenterMCHC (RBC) [Mass/Vol]33.7 g/dL32 - 36 g/dL [facility] HospitalMCV (RBC) [Entitic vol]87 fL80 - 100 [facility] NorthlandPlatelet mean volume (Bld) [Entitic vol]9.6 fL7 - 12 [facility] NorthlandPlatelets (Bld) [#/Vol]208 10*3/[facility] CenterRBC (Bld) [#/Vol] 4.59 10*6/[facility] CenterWBC LM Ql (Sput)8.6[facility] Health NetworkPST TOPon 55-75-4911Htylb TubeAuto ResultedUniversity Health Truman Medical CenterYPHILIS TOTAL(UNKNOWN SYPHILIS STATUS)on 57-25-5875GZGULLBV TOTAL<^0.2Normal<=0.8[facility] Hospital - CincinnatiComment on above:Order Comment: NON REACTIVENo serologic evidence of infection to Treponema pallidum. Repeat testingmay be considered in patients with suspected acute or primary syphilis in 2 to 4 weeks.Performed By: #### CBC, 87090-7, 75280-1, P, 05437-8, 91062-4, 10732-5 #### [facility] ([id number]) [address] [place], [place] [address]IXMK AND SCREENon 60-53-9419EOY_UALYZEBUtrgajDovZnvcvn [facility] HospitalComment on above:Performed By: #### CBC, 94861-9, 63676-7, AHP, 94888-2, 15552-1, 38764-1 #### [facility] ([id number]) [address], [address] [place], [place] [address]RH_INTEPPositiveNormalSelect Medical Specialty Hospital - CincinnatiComment on above:Performed By: #### DEMETRIO, 42397-3, 61345-6, ASHLEY, 57904-0, 24042-9, 89300-1 #### [facility] ([id number]) [address], [address] [place], [place] [address]Pmyc and screen(includes indirect callie)on 22-29-4681GPR and Rh group Nom (Bld)ABProMedica Health SystemABO and Rh group Nom (Bld)Positive ProMMcKitrick HospitalBlood group antibody screen.cells I+II+III QlNegative ProMedicMarshfield Medical Center Rice Lake SystemUS PREG TRANSABD FU PER FETUon 98-37-1052MQ PREG TRANSABD FU PER FETUUS PREG TRANSABD [...] by Gabriele Person MD on 12/21/2024 10:26 AMNormalCleveland Clinic [facility] Hospital (NO DIFF)on 86-83-7505Vtwinmrsprr distribution width (RBC) [Ratio] 15.5 %High11.5-15[facility] Hospital - CincinnatiComment on above:Performed By: #### DEMETRIO, 21275-3, 24987-2, ASHLEY, 11231-6, 01490-0, 23597-9 #### [facility] ([id number]) [address], [address] [place], [place] [address]Rhlkdtcqne (Bld) [Volume fraction]38.1 %Kicury75-48ZezBuppixDell Children'S Medical CenterComment on above:Performed By: #### CBC, 18813-5, 53833-4, AHP, 26118-9, 90347-4, 31589-1 #### [facility] ([id number]) [address], [address] [place], [place] [address]Anzobwhdqe (Bld) [Mass/Vol]12.8 g/hYDrtzbg65.7-15.5PHenry County HospitalComment on above:Performed By: #### CBC, 22333-0, 88864-6, AHP, 63660-6, 63494-5, 42916-8 #### [facility] ([id number]) [address], [address] [place], [place] [address]FER (RBC) [Entitic mass]29.4 jbBfmrje91-07GhzGfynsvDell Children'S Medical CenterComment on above:Performed By: #### CBC, 62012-0, 82032-8, AHP, 91870-7, 33671-9, 23068-3 #### [facility] ([id number]) [address], [address] [place], [place] [address]SNGK (RBC) [Mass/Vol]33.7 g/jAWvcpui70-65PumJxzvssDell Children'S Medical CenterComment on above:Performed By: #### CBC, 94367-8, 75460-4, AHP, 35547-8, 56544-5, 28732-3 #### [facility] ([id number]) [address], [address] [place], [place] [address]HCL (RBC) [Entitic vol]87 wZXfpzxq95-453FlbBqyuar [facility] HospitalComment on above:Performed By: #### CBC, 98597-5, 12804-6, AHP, 82932-4, 60137-8, 09605-4 #### [facility] ([id number]) [address], [address] [place], [place] [address]Efrjxcmo mean volume (Bld) [Entitic vol]9.5 fLNormal7-12 [facility] - CincinnatiComment on above:Performed By: #### CBC, 28410-6, 34757-8, AHP, 32248-3, 54092-5, 12757-6 #### [facility] ([id number]) [address], [address] [place] [address]Zhlgcykzk (Bld) [#/Vol]205 10*3/wLHiqsge533-613PfwCrhmkb [facility] HospitalComment on above:Performed By: #### CBC, 81413-9, 10418-3, AHP, 91442- 5, 35527-9, 23182-9 #### [facility] ([id number]) [address], [address] [place] [address]YZP COUNT4.36 X10E12/LNormal3.8-5.2PHenry County Hospital Comment on above:Performed By: #### CBC, 22769-0, 37040-5, AHP, 04977-4, 02614- 4, 72145-7 #### [facility] ([id number]) [address], [address] [place] [address]HWM (Bld) [#/Vol]8.6 10*3/uLNormal4-11[facility] Comment on above:Performed By: #### CBC, 09565-4, 37177-0, AHP, 59103-6, 04207- 4, 60333-6 #### [facility] ([id number]) [address], [address] [place] [address]IFALKAECZPUFM METABOLIC PANELon 03-69-3743Igbvnrj [Mass/Vol]2.8 g/dLLow3.2-5.3PHenry County HospitalComment on above:Performed By: #### CBC, 77513-0, 80481-0, AHP, 95634-4, 88524-5, 61149-3 #### [facility] ([id number]) [address], [address] [place], [place] [address]WNK [Catalytic activity/Vol]88 U/IWllhef28-498VcoFtnureDell Children'S Medical CenterComment on above:Performed By: #### CBC, 93157-0, 88732-9, AHP, 60943-6, 27492-2, 64284-2 #### [facility] ([id number]) [address], [address] [place], [place] [address]CPU [Catalytic activity/Vol]10 U/LNormal<=31PHenry County HospitalComment on above:Performed By: #### CBC, 57400-5, 70326-4, AHP, 64482-6, 08550-7, 22418-8 #### [facility] ([id number]) [address], [address] [place], [place] [address]Hkzga gap [Moles/Vol]10 mmol/LNormal5-15ProDell Children'S Medical CenterComment on above:Performed By: #### CBC, 86901-3, 86257-3, AHP, 83916-8, 28268-4, 65445-1 #### [facility] ([id number]) [address], [address] [place], [place] [address]FXN [Catalytic activity/Vol]13 U/LNormal<=41ProSamaritan North Health Center HospitalComment on above:Performed By: #### CBC, 18053-5, 89264-6, AHP, 01652-9, 31248-0, 79225-4 #### [facility] ([id number]) [address], [address] [place], [place] [address]Eajhyxbtc [Mass/Vol]0.5 mg/dLNormal0.3-1.2PHenry County HospitalComment on above:Performed By: #### CBC, 89709-5, 34212-4, AHP, 57349-8, 15912-4, 27697-5 #### [facility] ([id number]) [address], [facility] [address] [place], [place] [address]Rmjqvuw [Mass/Vol]9.4 mg/dLNormal8.5-10.5PHenry County HospitalComment on above:Performed By: #### CBC, 99203-5, 27361-9, AHP, 14436-9, 30015-6, 30829-6 #### [facility] ([id number]) [address], [facility] [address] [place], [place] [address]Ofalrrzh [Moles/Vol]107 mmol/XVbczng34-939FhfZgfmmwDell Children'S Medical CenterComment on above:Performed By: #### CBC, 11763-7, 60302-0, AHP, 20218-5, 76904-7, 21629-8 #### [facility] ([id number]) [address] [place], [place] [address]LB9 [Moles/Vol]21 mmol/CJhf77-18CdkKsrfdpHenry County Hospital Comment on above:Performed By: #### CBC, 87963-4, 10718-6, AHP, 69249-1, 75518- 4, 38250-4 #### [facility] ([id number]) [address] [place] [address]Xawdekiqfn [Mass/Vol]0.52 mg/dLNormal0.40-1.00ProDell Children'S Medical CenterComment on above:Result Comment: METHOD TRACEABLE TO IDMS STANDARD Performed By: #### CBC, 09153-4, 41349-7, AHP, 03591-2, 87223-6, 56925-9 #### [facility] ([id number]) [address] [place] [address]VVUG (CKD-EPI) NON-RACE DEPENDENT>^90Normal>=60ProDell Children'S Medical CenterComment on above:Result Comment: eGFR not reported due to non-numeric value for Creatinine. Reported eGFR is based on the CKD-EPI 2021 equation that does not use a race coefficient.Performed By: #### CBC, 80269-8, 03950-6, AHP, 98853- 5, 70674-5, 76655-0 #### [facility] ([id number]) [address], [address] [place] [address]Ixuhypd [Mass/Vol]76 mg/dSMvnmpi24-25TekGiwbedDell Children'S Medical Center Comment on above:Performed By: #### CBC, 18235-1, 77011-4, AHP, 93492-1, 86477- 4, 16072-9 #### [facility] ([id number]) [address], [address] [place] [address]Peshfhjys [Moles/Vol]3.7 mmol/LNormal3.5-5.0ProDell Children'S Medical CenterComment on above:Performed By: #### CBC, 80186-1, 82417-2, P, 76973-3, 28047-5, 22836-9 #### [facility] ([id number]) [address], [address] [place], [place] [address]Bpdzwpt [Mass/Vol]6.4 g/dLNormal6.0-8.0ProDell Children'S Medical CenterComment on above:Performed By: #### CBC, 21454-1, 22147-3, AHP, 39420-5, 01223-7, 56397-7 #### [facility] ([id number]) [address], [address] [place], [place] [address]Ljaxsk [Moles/Vol]138 mmol/DEcvzpn150-654TmiVkckyi [facility] HospitalComment on above:Performed By: #### CBC, 77382-2, 67587-1, AHP, 58613-4, 49217-0, 48148-8 #### [facility] ([id number]) [address], [address] [place], [place] [address]Sxjj nitrogen [Mass/Vol]9 mg/dLNormal5-23ProDell Children'S Medical CenterComment on above:Performed By: #### CBC, 61668-7, 01317-3, AHP, 42222-4, 22798-1, 82974-9 #### [facility] ([id number]) [address], [address] [place], [place] [address]HJHxg 43-29-6817NYE05 U/BZvz800-825PcmBtrlgaSelect Medical Specialty Hospital - [place] Comment on above:Performed By: #### CBC, 09115-4, 53408-9, AHP, 20110-4, 21591- 4, 07834-2 #### [facility] ([id number]) [address], [address] [place], [place] [address]XWNGXYI CREAT RATIOon 12-11-2024U/PRO/GAS FLOW REGULATOR RATIO CALC0.13Normal <=0.20[facility] - CincinnatiComment on above:Order Comment: Nephrotic Syndrome is associated with ratios >3.5Result Comment: Urine Protein / Creatinine Ratio not calculated due to non-numeric component.Performed By: #### CBC, 96808-3, 03100-9, AHP, 71865-8, 27041-4, 64915-8 #### [facility] ([id number]) [address], [address] [place], [place] [address]ZWOUY CREATININE,RDM62.56 mg/dLNormalSelect Medical Specialty Hospital [facility] [place] Comment on above:Order Comment: Nephrotic Syndrome is associated with ratios >3.5Performed By: #### CBC, 46683-0, 98153-8, AHP, 80380-7, 53207-5, 51929-9 #### [facility] ([id number]) [address], [address] [place], [place] [address]SWHGM PROTEIN, RANDOM (MG/L)80 mg/LNormal<120ProDell Children'S Medical CenterComment on above:Order Comment: Nephrotic Syndrome is associated with ratios >3.5Performed By: #### CBC, 17840-7, 07563-3, AHP, 40900-5, 39588-0, 59308-8 #### [facility] ([id number]) [address], [address] [place], [place] [address]XCNT ACIDon 16-99-8042Jjfth [Mass/Vol]4.3 mg/dLNormal2.6-7.2 [facility] HospitalComment on above:Performed By: #### CBC, 24073-9, 69857-3, AHP, 92206-7, 67085-5, 04450-2 #### [facility] ([id number]) [address], [address] [place], [place] [address]QULJHSEAVHcf 95-07-4473Kqvmduzag sediment LM Ql (Urine sed) PresentAbnormalNoneProMedica Menlo Park Va HospitalComment on above:Performed By: #### CBC, 88767-4, 38691-6, AHP, 31910-6, 95740-1, 50584-1 #### [facility] ([id number]) [address], [address] [place], [place] [address]Fepkmndhj Ql (U)NegativeNormalNegativeSelect Medical Specialty [facility] [place] Comment on above:Performed By: #### CBC, 99840-3, 39136-4, AHP, 95281-1, 83438- 4, 63608-6 #### [facility] ([id number]) [address], [address] [place], [place] [address]EWRST/HGBNegativeNormalNegativeSelect Medical Specialty Hospital - CincinnatiComment on above:Performed By: #### CBC, 47577-0, 33180-9, AHP, 70102-7, 50395-0, 56056-2 #### [facility] ([id number]) [address], [address] [place], [place] [address]Bobbn (U)YellowNormalYellowSelect Medical Specialty Hospital - CincinnatiComment on above:Performed By: #### CBC, 79908-0, 44392-8, AHP, 57016-3, 04434-3, 10797-8 #### [facility] ([id number]) [address], [address] [place], [place] [address]Ctrjsxm Ql (U)NegativeNormalNegative, 250 mg/dLProDell Children'S Medical CenterComment on above:Performed By: #### CBC, 93008-8, 09931-2, AHP, 73714- 5, 45174-6, 32720-3 #### [facility] ([id number]) [address], [address] [place], [place] [address]Pdlqhdf Ql (U)NegativeNormalNegativeSelect Medical Specialty Hospital - [place] Comment on above:Performed By: #### CBC, 50961-3, 64643-6, AHP, 96156-7, 54603- 4, 00426-2 #### [facility] ([id number]) [address], [address] [place], [place] [address]Zwptsaxvz esterase Test strip Ql (U)NegativeNormalNegative ProMMercy Medical CenterComment on above:Performed By: #### CBC, 32531-3, 39978-3, AHP, 35211-9, 73900-2, 57248-6 #### [facility] ([id number]) [address], [address] [place], [place] [address]Viivkqd Ql (U)NegativeNormalNegativeSelect Medical Specialty [facility] - [place] Comment on above:Performed By: #### CBC, 79407-9, 30058-1, AHP, 68256-1, 90960- 4, 19052-7 #### [facility] ([id number]) [address], [address] [place], [place] [address]AK,URINE6.5Ljepft6.0-8.5Pro[facility] Va HospitalComment on above:Performed By: #### CBC, 34207-4, 66838-7, AHP, 92575-8, 04622-5, 08047-5 #### [facility] ([id number]) [address], [address] [place], [place] [address]Xsdptro Ql (U)NegativeNormalNegativeProWestern Reserve Hospitalca [facility] Comment on above:Performed By: #### CBC, 40347-9, 52593-7, AHP, 54426-7, 13381- 4, 08455-0 #### [facility] ([id number]) [address], [address] [place], [place] [address]K.B.ZHKTH9Wreglc2-6TbqSxtbhoHenry County HospitalComment on above: Performed By: #### CBC, 88070-2, 81985-6, AHP, 88550-7, 98590-4, 35775-3 #### [facility] ([id number]) [address], [address] [place], [place] [address]Wcnpgylp gravity (U) [Rel density]1.516Orfydz0.003-1.035 [facility] Va HospitalComment on above:Performed By: #### CBC, 23753-3, 38388-4, AHP, 89965-2, 76005-0, 63943-6 #### [facility] ([id number]) [address], [address] [place], [place] [address]EGXCMNNM EPITHELIUM>^18Pxgp0-7NzxZwxudtHenry County HospitalComment on above:Performed By: #### CBC, 84286-4, 52673-0, AHP, 58074-3, 38723-5, 42939- 4 #### [facility] ([id number]) [address], [address] [place], [place] [address]ZQHWAOHCPFfevapLgtiodhcXegnsXneTsbfsz Fremont HospitalComment on above:Performed By: #### CBC, 14029-6, 43956-5, AHP, 40700-0, 63063-6, 90344-0 #### [facility] ([id number]) [address], [address] [place], [place] [address]DSEVBOGAZXBQ2.2 eu/dLNormal0.2 eu/dL, 1.0 eu/dLProDell Children'S Medical CenterComment on above:Performed By: #### CBC, 26576-8, 18928-2, AHP, 85080-9, 68132-8, 82067-5 #### [facility] ([id number]) [address], [address] [place], [place] [address]P.B.FTOPN5Dlrmjl6-0WxdZvgdvh [facility] Va HospitalComment on above: Performed By: #### CBC, 35010-9, 31051-4, AHP, 25434-1, 70009-9, 52588-9 #### [facility] ([id number]) [address], [address] [place], [place] [address]WLQUP B SCREENon 61-15-3075YQWBU B SCREENCULTURE RESULTS NEGATIVE FOR GROUP B STREPTOCOCCUS BY NUCLEIC ACID AMPLIFICATIONDominican Hospital Ambulatory PPGComment on above:Performed By: #### SBSC #### [facility] ([facility]) [address] [place] [address] VIRUROGENITAL UREAPLASMA AND MYCOPLASMA SPECIES BY PCRon 38-81-2372LFPAZMZOXT GENITALIUMNot detectedDominican Hospital Ambulatory PPGComment on above:Result Comment: INTERPRETIVE INFORMATION: Urogenital Ureaplasma and Mycoplasma Species by PCR A negative result does not rule out the presence of PCR inhibitors in the patient specimen or test-specific nucleic acid in concentrations below the level of detection by this test. This test was developed and its performance characteristics determined by [facility]. It has not been cleared or approved by the [place] Food and Drug Administration. This test was performed in a CLIA certified laboratory and is intended for clinical purposes. Performed By: [facility] [address] [place], [place] [id number] Call Center Rn: Thomas Ramirez MD, PhD CLIA Number: [id number] By: #### UREMYC #### [facility] ([facility]) [address] [place] [address] VIRMYCOPLASMA HOMINISNot detectedDominican Hospital Ambulatory PPGComment on above:Performed By: #### UREMYC #### [facility] ([facility]) [address] [place] [address] VIRUREAPLASMA AND MYCOPLASMA SOURCEUrineDominican Hospital Ambulatory PPGComment on above:Performed By: #### UREMYC #### [facility] ([facility]) [address] [place] [address] VIRUREAPLASMA PARVUMNot detectedDominican Hospital Ambulatory PPGComment on above:Performed By: #### UREMYC #### [facility] ([facility]) [address] [place] [address] VIRUREAPLASMA UREALYTICUMDetectedAbScripps Mercy Hospital Ambulatory PPGComment on above:Performed By: #### UREMYC #### [facility] ([facility]) [address] [place] [address] VIRPOCT EKGon 49-92-4215OzdXhggohHarrison Community Hospital WITH AUTO DIFFERENTIALon 98-15-3881NZDFJBTMI ABSOLUTE COUNT (10*3/UL) BY AUTOMATED COUNT0.1 10*3/uLNormal0.0-0.2ProMedLos Banos Community HospitalComment on above: Performed By: #### CBC, 24794-3, 86587-3, AHP, 38901-3, 32248-3, 01029-0 #### [facility] ([id number]) [address] [place], [place] [address]URDULVYUL RELATIVE PERCENT BY AUTOMATED COUNT0.8 %Normal [facility] - [place]Comment on above:Performed By: #### CBC, 20558-3, 56802-4, AHP, 50635-6, 30344-5, 41324-1 #### [facility] ([id number]) [address] [place], [place] [address]HDHPNPHWFCX DIFFERENTIAL TYPEAUTOMATED DIFFERENTIALNormal [facility] - [place]Comment on above:Performed By: #### CBC, 13929-6, 46542-5, AHP, 10615-6, 80859-1, 36092-6 #### [facility] ([id number]) [address], [address] [place], [place] [address]Segqkhmqxtr (Bld) [#/Vol]0.2 10*3/uLNormal0.0-0.4[facility] - [place]Comment on above:Performed By: #### CBC, 28899-2, 48659-7, AHP, 36241-9, 38798-6, 51062-3 #### [facility] ([id number]) [address], [facility] [address] [place], [place] [address]TMAGBOQWBGJ RELATIVE PERCENT BY AUTOMATED COUNT2.0 %Normal [facility] - [place]Comment on above:Performed By: #### CBC, 38468-3, 33607-6, AHP, 17306-0, 68017-1, 18918-4 #### [facility] ([id number]) [address], [facility] [address] [place], [place] [address]Iunuseufolp distribution width (RBC) [Ratio]13.8 %Agdkoa47.5-15 [facility] - [place]Comment on above:Performed By: #### CBC, 13760-8, 29126-8, AHP, 67310-2, 12829-1, 39899-6 #### [facility] ([id number]) [address], [facility] [address] [place], [place] [address]Akegoilbqf (Bld) [Volume fraction]35.4 %Fxlmbq39-71HafQgswzoSelect Medical Specialty Hospital - [place]Comment on above:Performed By: #### CBC, 98084-2, 00119-1, AHP, 91500-5, 59748-9, 78585-1 #### [facility] ([id number]) [address], [address] [place], [place] [address]Saoujvccpj (Bld) [Mass/Vol]11.8 g/xGOufqvv65.7-15.5PHenry County HospitalComment on above:Performed By: #### CBC, 89279-4, 22678-6, AHP, 10117-5, 32035-1, 44132-5 #### [facility] ([id number]) [address], [facility] [address] [place], [place] [address]LLOQGYWIOJR ABSOLUTE COUNT (10*3/UL) BY AUTOMATED COUNT2.0 10*3/uLNormal1.0-3.5Pro[facility] Park Va HospitalComment on above:Performed By: #### CBC, 47524-7, 44156-5, AHP, 87708-7, 52020-8, 84040-8 #### [facility] ([id number]) [address], [facility] [address] [place], [place] [address]NXHUFDMZBDR RELATIVE PERCENT BY AUTOMATED COUNT22.7 %Normal ProMMercy Medical CenterComment on above:Performed By: #### CBC, 22041-3, 97896-9, AHP, 99168-6, 91684-8, 41394-6 #### [facility] ([id number]) [address], [address] [place], [place] [address]LDN (RBC) [Entitic mass]29.0 hbIcljpq61-31OatXzgbgwDell Children'S Medical CenterComment on above:Performed By: #### CBC, 30514-6, 71803-7, AHP, 09746-2, 34122-4, 36272-9 #### [facility] ([id number]) [address], [address] [place], [place] [address]DDJQ (RBC) [Mass/Vol]33.3 g/fAYtoont90-16KtaCjxxkyDell Children'S Medical CenterComment on above:Performed By: #### CBC, 65283-7, 52500-8, AHP, 71506-1, 31775-0, 16894-8 #### [facility] ([id number]) [address] [address] [place], [place] [address]WCF (RBC) [Entitic vol]87 pBJtrcqu58-924FmsSesmax [facility]remont HospitalComment on above:Performed By: #### CBC, 26113-7, 80242-8, AHP, 74566-2, 83541-3, 36616-8 #### [facility] ([id number]) [address], [address] [place], [place] [address]RLRCJKSGZ ABSOLUTE COUNT (10*3/UL) BY AUTOMATED COUNT0.6 10*3/uL Normal0.0-0.9ProDell Children'S Medical CenterComment on above:Performed By: #### CBC, 27989-8, 38023-3, AHP, 31848-5, 15086-2, 73677-6 #### [facility] ([id number]) [address], [address] [place], [place] [address]QBNQCTGVF RELATIVE PERCENT BY AUTOMATED COUNT6.6 %Normal [facility] - [place]Comment on above:Performed By: #### CBC, 41484-7, 88365-1, AHP, 51326-2, 71177-4, 91178-3 #### [facility] ([id number]) [address], [address] [place], [place] [address]WGRAXWPLWPY ABSOLUTE COUNT BY AUTOMATED COUNT5.8 10*3/uLNormal 1.5-6.6[facility] - [place]Comment on above:Performed By: #### CBC, 00161- 6, 42222-9, AHP, 96314-9, 56883-2, 58503-6 #### [facility] ([id number]) [address], [address] [place], [place] [address]PWAAISTORSB RELATIVE PERCENT BY AUTOMATED COUNT67.9 %Normal [facility] - [place]Comment on above:Performed By: #### CBC, 42529-4, 44430-3, AHP, 20950-2, 69402-7, 79904-1 #### [facility] ([id number]) [address], [address] [place], [place] [address]Wazgxnzp mean volume (Bld) [Entitic vol]9.8 fLNormal7-12 [facility] - [place]Comment on above:Performed By: #### CBC, 27924-3, 68902-4, AHP, 97433-0, 04626-8, 93190-4 #### [facility] ([id number]) [address], [address] [place] [address]Njjgptpee (Bld) [#/Vol]230 10*3/aEZampdm877-298IpwDybftb [facility]remont HospitalComment on above:Performed By: #### CBC, 81932-5, 26131-6, AHP, 69831- 5, 43056-8, 89648-5 #### [facility] ([id number]) [address], [address] [place] [address]DNI COUNT4.06 X10E12/LNormal3.8-5.2PHenry County Hospital Comment on above:Performed By: #### CBC, 03636-1, 13260-4, AHP, 98407-8, 34319- 4, 36313-3 #### [facility] ([id number]) [address], [address] [place], [place] [address]LPT (Bld) [#/Vol]8.6 10*3/uLNormal4-11[facility] [place] Comment on above:Performed By: #### CBC, 79814-1, 50255-1, AHP, 58843-9, 40133- 4, 15877-7 #### [facility] ([id number]) [address], [address] [place], [place] [address]XMYMCSBSqn 08-19-4130Sshmueck [Mass/Vol]112 ng/jEPrxuyy71-924 [facility] - [place]Comment on above:Performed By: #### CBC, 26247-5, 55282-0, AHP, 99178-7, 03358-6, 63645-6 #### [facility] ([id number]) [address], [address] [place] [address]WSRK AND TIBCon 22-04-9624Evcu [Mass/Vol]106 ug/sGJxaajq15-184 [facility] - [place]Comment on above:Performed By: #### CBC, 25883-9, 63206-3, AHP, 88915-0, 57372-9, 45807-1 #### [facility] ([id number]) [address], [address] [place], [place] [address]HL[address] UVRQPHN556 ug/rCXisx411-963OarSrceeaSelect Medical Specialty Hospital - [place] Comment on above:Performed By: #### CBC, 09240-7, 38434-4, AHP, 67142-1, 46017- 4, 90983-7 #### [facility] ([id number]) [address], [address] [place], [place] [address] TFNXXSKXLK54 % XXNNGHXYRMDwblyl51-03JoaPlwibd [facility]ont HospitalComment on above:Performed By: #### CBC, 32195-3, 45567-1, AHP, 92448-9, 08279-3, 36472-5 #### [facility] ([id number]) [address], [address] [place] [address]Lhjzohxcvvr [Mass/Vol]308 mg/vIAelitu954-996BmjQdbmoaSelect Medical Specialty Hospital - CincinnatiComment on above:Performed By: #### CBC, 61538-4, 83606-5, AHP, 73304-7, 64673-5, 83384-0 #### [facility] ([id number]) [address], [address] [place], [place] [address]SJUBOOJNAD UREAPLASMA AND MYCOPLASMA SPECIES BY PCRon 10-09-2024 MYCOPLASMA GENITALIUMNot detectedNoCollege Hospital [facility] Mesa Ambulatory PPGComment on above:Result Comment: INTERPRETIVE INFORMATION: Urogenital Ureaplasma and Mycoplasma Species by PCR A negative result does not rule out the presence of PCR inhibitors in the patient specimen or test-specific nucleic acid in concentrations below the level of detection by this test. This test was developed and its performance characteristics determined by [employer]. It has not been cleared or approved by the [place] Food and Drug Administration. This test was performed in a CLIA certified laboratory and is intended for clinical purposes. Performed By: [employer] [address] [place] [address] Call Center Rn: Thomas Ramirez MD, PhD CLIA Number: [id number] By: #### UREMYC #### [facility] ([facility]) [address] [place] [address] VIRMYCOPLASMA HOMINISNot detectedDominican Hospital Ambulatory PPGComment on above:Performed By: #### UREMYC #### [facility] ([facility]) [address] [place] [address] VIRUREAPLASMA AND MYCOPLASMA SOURCEUrineDominican Hospital Ambulatory PPGComment on above:Performed By: #### UREMYC #### [facility] ([facility]) [address] [place] [address] VIRUREAPLASMA PARVUMNot detectedDominican Hospital Ambulatory PPGComment on above:Performed By: #### UREMYC #### [facility] ([facility]) [address] [place] [address] VIRUREAPLASMA UREALYTICUMNot detectedDominican Hospital Ambulatory PPGComment on above:Performed By: #### UREMYC #### [facility] ([facility]) [address] [place] [address] VIRThyroid antibodies includes TPO and TGABon 59-34-3120Rgyenvosjagwve and review of laboratory resultsNoAtrium HealthThyroglobulin Ab Wythe County Community HospitalTPO Ab [facility] Medical CenterThyroid profile includes TSH FT4on 66-87-4428Kkal T4 [Mass/Vol]0.58 ng/dLLow0.61 - 1.60 ng/dLCleveland Clinic Fairview HospitalInterpretation and review of laboratory resultsAbnoAtrium HealthTS Qn2.51 m[IU]/LProMedica John L. McClellan Memorial Veterans HospitalCBC WITH AUTO DIFFERENTIALon 00-91-1894XOXRFOXHL ABSOLUTE COUNT (10*3/UL) BY AUTOMATED COUNT0.0 10*3/uLNormal0.0-0.2Pro[facility] Va HospitalComment on above: Performed By: #### UA #### [facility] ([id number]) [address], [address] [place], [place] [address]QGQFEXBLU RELATIVE PERCENT BY AUTOMATED COUNT0.5 %Normal [facility] CincinnatiComment on above:Performed By: #### UA #### [facility] ([id number]) [address], [address] [place], [place] [address]XNZPCGVKVMN DIFFERENTIAL TYPEAUTOMATED DIFFERENTIALNormal [facility] - [place]Comment on above:Performed By: #### UA #### [facility] ([id number]) [address] [address]Gokkmxucmqm (Bld) [#/Vol]0.1 10*3/uLNormal0.0-0.4[facility] - CincinnatiComment on above:Performed By: #### UA #### [facility] ([id number]) [address], [address] [place], [place] [address]DLIROSRIBOV RELATIVE PERCENT BY AUTOMATED COUNT1.5 %Normal [facility] - CincinnatiComment on above:Performed By: #### UA #### [facility] ([id number]) [address], [address] [place], [place] [address]Ckjxqsymwud distribution width (RBC) [Ratio]13.3 %Ycncql75.5-15 [facility] - CincinnatiComment on above:Performed By: #### UA #### [facility] ([id number]) [address] [address] [place], [place] [address]Apjgpakyji (Bld) [Volume fraction]35.9 %Phlypc14-95RsuBywcbaDell Children'S Medical CenterComment on above:Performed By: #### UA #### [facility] ([id number]) [address], [address] [place], [place] [address]Fukozhtklj (Bld) [Mass/Vol]12.1 g/uETfvsmx04.7-15.5PHenry County HospitalComment on above:Performed By: #### UA #### [facility] ([id number]) [address], [address] [place], [place] [address]BNXLKXVGWNS ABSOLUTE COUNT (10*3/UL) BY AUTOMATED COUNT1.8 10*3/uLNormal1.0-3.5PHenry County HospitalComment on above:Performed By: #### UA #### [facility] ([id number]) [address], [address] [place], [place] [address]SAHOVVQHNEM RELATIVE PERCENT BY AUTOMATED COUNT23.9 %Normal [facility] CincinnatiComment on above:Performed By: #### UA #### [facility] ([id number]) [address], [address] [place], [place] [address]VEW (RBC) [Entitic mass]29.7 xgUehnox47-83PfiMdoeqqSelect Medical Specialty Hospital - CincinnatiComment on above:Performed By: #### UA #### [facility] ([id number]) [address], [address] [place], [place] [address]PCET (RBC) [Mass/Vol]33.8 g/iAMnuufw53-35GdqIetxjwDell Children'S Medical CenterComment on above:Performed By: #### UA #### [facility] ([id number]) [address], [address] [place], [place] [address]CDC (RBC) [Entitic vol]88 wAYhbfmk15-398NynJgqfclSelect Medical Specialty Hospital - CincinnatiComment on above:Performed By: #### UA #### [facility] ([id number]) [address], [address] [place], [place] [address]BUDLLXTTS ABSOLUTE COUNT (10*3/UL) BY AUTOMATED COUNT0.7 10*3/uL Normal0.0-0.9[facility] - CincinnatiComment on above:Performed By: #### UA #### [facility] ([id number]) [address], [address] [place] [address]BNBTJUVMI RELATIVE PERCENT BY AUTOMATED COUNT8.9 %Normal [facility] - CincinnatiComment on above:Performed By: #### UA #### [facility] ([id number]) [address], [address] [place] [address]FBQJURPVDLH ABSOLUTE COUNT BY AUTOMATED COUNT4.9 10*3/uLNormal 1.5-6.6[facility] - CincinnatiComment on above:Performed By: #### UA #### [facility] ([id number]) [address], [address] [place] [address]PFGJAEIFHAX RELATIVE PERCENT BY AUTOMATED COUNT65.2 %Normal [facility] CincinnatiComment on above:Performed By: #### UA #### [facility] ([id number]) [address], [address] [place] [address]Kueqszfk mean volume (Bld) [Entitic vol]9.8 fLNormal7-12 [facility] - CincinnatiComment on above:Performed By: #### UA #### [facility] ([id number]) [address], [address] [place] [address]Dlahsxdco (Bld) [#/Vol]257 10*3/bPUwvsil058-767ColAxyvcuSelect Medical Specialty Hospital - CincinnatiComment on above:Performed By: #### UA #### [facility] ([id number]) [address], [address] [place] [address]IAL COUNT4.09 X10E12/LNormal3.8-5.2PHenry County Hospital Comment on above:Performed By: #### UA #### [facility] ([id number]) [address], [address] [place] [address]JEV (Bld) [#/Vol]7.6 10*3/uLNormal4-11[facility] [place] Comment on above:Performed By: #### UA #### [facility] ([id number]) [address] [place] [address], [address] [place], [place] [address]RHT auto differentialon 58-61-9571Jnvjmjbkk (Bld) [#/Vol]0 10*3/uL0.0 - 0.2 10*3/uLProSumma Health SystemBasophils/100 WBC (Bld)0.5 % [facility] HospitalDifferential cell count method Nom (Bld)AUTOMATED DIFFERENTIALCleveland Clinic Fairview HospitalEosinophils (Bld) [#/Vol]0.1 10*3/uL0.0 - 0.4 10*3/uLProSumma Health SystemEosinophils/100 WBC (Bld)1.5 %[facility] SystemErythrocyte distribution width (RBC) [Ratio]13.3 %11.5 - 15 %[facility] SystemHematocrit (Bld) [Volume fraction]35.9 %35 - 47 %[facility] HospitalHemoglobin (Bld) [Mass/Vol]12.1 g/dL11.7 - 15.5 g/dLCleveland Clinic Fairview HospitalLymphocytes (Bld) [#/Vol]1.8 10*3/uL1.0 - 3.5 10*3/uLFairfield Medical Center SystemLymphocytes/100 WBC (Bld)23.9 %[facility] HospitalMCH (RBC) [Entitic mass]29.7 pg27 - 34 pgPAdena Fayette Medical CenterMCHC (RBC) [Mass/Vol]33.8 g/dL32 - 36 g/dLCleveland Clinic Fairview HospitalMCV (RBC) [Entitic vol]88 fL80 - 100 [facility] NorthlandMonocytes (Bld) [#/Vol]0.7 10*3/uL0.0 - 0.9 10*3/uLProSumma Health SystemMonocytes/100 WBC (Bld)8.9 %[facility] HospitalNeutrophils (Bld) [#/Vol]4.9 10*3/uL1.5 - 6.6 10*3/[facility] Choice Medical CenterNeutrophils/100 WBC (Bld)65.2 %[facility]view HospitalPlatelet mean volume (Bld) [Entitic vol]9.8 fL 7 - 12 [facility] SystemPlatelets (Bld) [#/Vol]257 10*3/[facility] SystemRBC (Bld) [#/Vol]4.09 10*6/[facility] Medical CenterWBC LM Ql (Sput)7.6[facility] HealthFERRITINon 09-18-2024 Ferritin [Mass/Vol]6 ng/hFIte97-572QhhOknqnlSelect Medical Specialty Hospital - CincinnatiComment on above: Performed By: #### CBC, 76951-5, 47463-5, AHP, 95965-5, 95314-4, 54106-3 #### [facility] ([id number]) [address] [place], [place] [address]KNI 1H POST 50G LOADon 23-27-1354RASBTNB, 1HR POST 50GM LOAD83 mg/nFLjssua54-527KpoLgmtwtSelect Medical Specialty Hospital - CincinnatiComment on above:Performed By: #### CBC, 33698-7, 38995-0, AHP, 92285-0, 09248-3, 63916-1 #### [facility] ([id number]) [address], [address] [place], [place] [address]PXBA AND TIBCon 20-70-1341Ybwo [Mass/Vol]45 ug/aRKuv07-163 [facility] - CincinnatiComment on above:Performed By: #### UA #### [facility] ([id number]) [address], [address] [place], [place] [address]LBBM JFVSFUZ689 ug/aPPiqp196-478PiuKbtkxrSelect Medical Specialty Hospital - [place] Comment on above:Performed By: #### UA #### [facility] ([id number]) [address], [address] [place], [place] [address]QDKW SATURATION9 % GGYFHAJAPHTpk59-10QdrYvvyvu [facility] Comment on above:Performed By: #### UA #### [facility] ([id number]) [address], [address] [place], [place] [address]Qzxfbwnucis [Mass/Vol]342 mg/pHZmih729-405JhgYwlxicSelect Medical Specialty Hospital - CincinnatiComment on above:Performed By: #### UA #### [facility] ([id number]) [address], [address] [place], [place] [address]Ijca and TIBCon 60-19-8760Pmffofsmljnodm and review of laboratory resultsAbnormalProHuntsville Hospital System Health SystemIron [Mass/Vol]45 ug/dLLow50 - 170 ug/dLProSumma Health SystemIron binding capacity [Mass/Vol]479 ug/eFHvkl156 - 425 ug/dLProSumma Health SystemIron saturation [Mass fraction]9LowProSumma Health SystemTransferrin [Mass or moles/Vol]342 mg/hSImvq313 - 336 mg/dL [facility] HospitalProSumma Health SystemSYPHILIS TOTAL(UNKNOWN SYPHILIS STATUS)on 24-93-9667CYEHKTJQ TOTAL<^0.2Normal<=0.8[facility] Comment on above:Order Comment: NON REACTIVENo serologic evidence of infection to Treponema pallidum. Repeat testingmay be considered in patients with suspected acute or primary syphilis in 2 to 4 weeks.Performed By: #### CBC, 28409-3, 02804-6, AHP, 09208-6, 50752-4, 56284-5 #### [facility] ([id number]) [address], [address] [place], [place] [address]LFMUYRX PROFILE INCLUDES TSH FT4on 14-02-4159Afep T4 [Mass/Vol] 0.65 ng/dLNormal0.61-1.60[facility] - CincinnatiComment on above:Performed By: #### CBC, 66149-5, 32447-1, AHP, 28519-5, 45105-4, 58818-6 #### [facility] ([id number]) [address], [address] [place], [place] [address]PUX2.80 uIU/mLHigh0.49-4.67[facility] - CincinnatiComment on above:Performed By: #### CBC, 30509-6, 63719-5, [facility], 44633-2, 89251-1, 54449-0 #### [facility] ([id number]) [address], [address] [place], [place] [address]CXKCWWF D 25 HYDROXYon 61-21-0871EKBHACI D 25 HYD TOT36.8 ng/mL Mznpwl36.0-100.0[facility] on above:Order Comment: Vitamin D status 25 [place] Vitamin D Deficiency <20 ng/mLInsufficiency 20-29 ng/mLSufficiency 30-100 ng/mLToxicity >100 ng/mLNOTE: A pediatric reference range has not been established by the rf microwave engineer of this kit. The [place] [employer] recommends a Vitamin D level of = or >20ng/mL in infants and children.Performed By: #### CBC, 74359-2, 15952-6, [facility], 88654-8, 95717-4, 46986-4 #### [facility] ([id number]) [address], [address] [place], [place] [address]RFG SINGLE MARKER SCRN, MATERNAL, SERUMon 38-13-8305JLF SINGLE MARKER SCRN, MATERNAL, SERUMSEE COMMENTSNormalProDell Children'S Medical CenterComascension river district hospital on above:Result Comment: Test Result Flag Unit RefValue AFP Single Marker SCRN, Maternal, S Results Summary Normal risk Neural tube defect risk estimate ,000 AFP 31.0 ng/mL AFP MoM 0.89 MoM [...] repeat testing Initial testing Physician Phone Number [phone] GENERAL TEST INFORMATION SEE COMMENTS This screening [...] developed and its performance characteristics determined by [facility] in a manner consistent with CLIA requirements. This test has not been cleared or approved by the U.S. Food and Drug Administration. Test Performed by: [facility] [address] [place] [address] Sock Boarder: Katy Villatoro Ph.D.; CLIA# [id number] By: #### UA #### [facility] ([id number]) [address], [address] [place], [place] [address]Hglfy Free Cell DNA (Non-[facility])on 94-66-1655Rmzkpvawjshcfz and review of laboratory resultsNormGeisinger-Lewistown HospitalCBC without diffon 45-57-6806Lrmukwtrodx distribution width (RBC) [Ratio] 13.3 %11.5 - 15.0 %[facility] HospitalHematocrit (Bld) [Volume fraction]37.6 %35 - 47 %[facility] HospitalHemoglobin (Bld) [Mass/Vol]12.7 g/dL11.7 - 15.5 g/dLCleveland Clinic Fairview HospitalMCH (RBC) [Entitic mass]29.5 pg27 - 34 pgPAdena Fayette Medical CenterMCHC (RBC) [Mass/Vol]33.8 g/dL32 - 36 g/dLCleveland Clinic Fairview Hospital MCV (RBC) [Entitic vol]87 fL80 - 100 [facility]landPlatelet mean volume (Bld) [Entitic vol]10 fL7 - 12 [facility] NorthlandPlatelets (Bld) [#/Vol]243 10*3/[facility] Medical CenterRBC (Bld) [#/Vol]4.31 10*6/[facility] Medical CenterWBC corrected for nucl RBC Auto (Bld) [#/Vol]7[facility] Coordinated HealthCOMPLETE BLOOD COUNTon 32-97-2898Dlmcpaxyeur distribution width (RBC) [Ratio]13.3 %Hzhwix85.5-15.0[facility] Comment on above:Performed By: #### UA #### [facility] ([id number]) [address], [address] [place], [place] [address]Gdgatxhjip (Bld) [Volume fraction]37.6 %Ykarek22-26LqyQuibehSelect Medical Specialty Hospital - CincinnatiComment on above:Performed By: #### UA #### [facility] ([id number]) [address], [address] [place], [place] [address]Bhrnexjlbh (Bld) [Mass/Vol]12.7 g/sHDbijfe88.7-15.5PHenry County HospitalComment on above:Performed By: #### UA #### [facility] ([id number]) [address], [address] [place], [place] [address]PQU (RBC) [Entitic mass]29.5 wyYfsdtd29-27MbhWlwfoqSelect Medical Specialty Hospital - CincinnatiComment on above:Performed By: #### UA #### [facility] ([id number]) [address], [address] [place], [place] [address]KLAP (RBC) [Mass/Vol]33.8 g/fVLirddm49-06HqrHhgmgfDell Children'S Medical CenterComment on above:Performed By: #### UA #### [facility] ([id number]) [address], [address] [place], [place] [address]JQT (RBC) [Entitic vol]87 pZLjwcrn81-013VwtChpyun Fremont HospitalComment on above:Performed By: #### UA #### [facility] ([id number]) [address], [address] [place], [place] [address]Msnbukzx mean volume (Bld) [Entitic vol]10.0 fLNormal7-12 [facility] - CincinnatiComment on above:Performed By: #### UA #### [facility] ([id number]) [address], [address] [place], [place] [address]Ousgaerjc (Bld) [#/Vol]243 10*3/sEWqhvto769-647IvvXykmyx [facility]ont HospitalComment on above:Performed By: #### UA #### [facility] ([id number]) [address], [address] [place], [place] [address]XSU COUNT4.31 X10E12/LNormal3.80-5.20[facility] Comment on above:Performed By: #### UA #### [facility] ([id number]) [address], [address] [place], [place] [address]QFX (Bld) [#/Vol]7.0 10*3/uLNormal4.0-11.0[facility] - CincinnatiComment on above:Performed By: #### UA #### [facility] ([id number]) [address], [address] [place], [place] [address]PHGFIPFDFFYDF METABOLIC PANELon 94-22-2276Tfzmwjk [Mass/Vol]4.0 g/dLNormal3.2-5.3PHenry County HospitalComment on above:Performed By: #### UA #### [facility] ([id number]) [address], [address] [place], [place] [address]PAY [Catalytic activity/Vol]32 U/ASqm91-047RxjBpduvnDell Children'S Medical CenterComment on above:Performed By: #### UA #### [facility] ([id number]) [address], [address] [place], [place] [address]OHY [Catalytic activity/Vol]8 U/LNormal0-31PHenry County HospitalComment on above:Performed By: #### UA #### [facility] ([id number]) [address], [address] [place], [place] [address]Swwjl gap [Moles/Vol]7 mmol/LNormal5-15ProDell Children'S Medical CenterComment on above:Performed By: #### UA #### [facility] ([id number]) [address], [address] [place], [place] [address]RAO [Catalytic activity/Vol]12 U/LNormal0-41ProDell Children'S Medical CenterComment on above:Performed By: #### UA #### [facility] ([id number]) [address], [address] [place], [place] [address]Oaglqaicx [Mass/Vol]0.4 mg/dLNormal0.3-1.2PHenry County HospitalComment on above:Performed By: #### UA #### [facility] ([id number]) [address], [address] [place], [place] [address]Ebdlqjv [Mass/Vol]9.3 mg/dLNormal8.5-10.5PHenry County HospitalComment on above:Performed By: #### UA #### [facility] ([id number]) [address], [address] [place], [place] [address]Evfmtzwj [Moles/Vol]103 mmol/EXtsukw56-922XnkUhafidDell Children'S Medical CenterComment on above:Performed By: #### UA #### [facility] ([id number]) [address], [address] [place], [place] [address]HS4 [Moles/Vol]28 mmol/QMlqvnk70-44IruIgtoztHenry County Hospital Comment on above:Performed By: #### UA #### [facility] ([id number]) [address], [address] [place], [place] [address]Rcxakxrfzy [Mass/Vol]0.61 mg/dLNormal0.40-1.00[facility] - CincinnatiComment on above:Result Comment: METHOD TRACEABLE TO IDMS STANDARD Performed By: #### UA #### [facility] ([id number]) [address], [address] [place], [place] [address]tUCA (CKD-EPI) NON-RACE DEPENDENT>90Normal>59ProDell Children'S Medical CenterComment on above:Result Comment: Reported eGFR is based on the CKD-EPI 2021 equation that does not use a race coefficient.Performed By: #### UA #### [facility] ([id number]) [address], [address] [place], [place] [address]Srvufll [Mass/Vol]85 mg/dVOfcdcc35-21RvmEjlpinSelect Medical Specialty Hospital - Cincinnati Comment on above:Performed By: #### UA #### [facility] ([id number]) [address], [address] [place], [place] [address]Fcvjiejsm [Moles/Vol]4.3 mmol/LNormal3.5-5.0[facility] - CincinnatiComment on above:Performed By: #### UA #### [facility] ([id number]) [address], [address] [place], [place] [address]Alxwbtq [Mass/Vol]6.7 g/dLNormal6.0-8.0[facility] - CincinnatiComment on above:Performed By: #### UA #### [facility] ([id number]) [address], [address] [place], [place] [address]Pnumwv [Moles/Vol]138 mmol/OSgeunm511-293LyiMdtrnk [facility]ont HospitalComment on above:Performed By: #### UA #### [facility] ([id number]) [address], [address] [place], [place] [address]Itdb nitrogen [Mass/Vol]8 mg/dLNormal5-23ProDell Children'S Medical CenterComment on above:Performed By: #### UA #### [facility] ([id number]) [address], [address] [place], [place] [address]Lxklgiayotnhf metabolic panelon 80-77-5462Ajyebwa [Mass/Vol]4 g/dL3.2 - 5.3 g/dLProHuntsville Hospital System Health SystemALP [Catalytic activity/Vol]32 U/LLow39 - 130 U/[facility] CenteroMedica Health SystemALT No additional P-5'-P [Catalytic activity/Vol]8 U/L0 - 31 U/[facility] Medical CenteroMedica Health SystemAnion gap [Moles/Vol]7 mmol/L 5 - 15 mmol/[facility]ica Health SystemAST [Catalytic activity/Vol]12 U/L0 - 41 U/L [facility] Health SystemBilirubin [Mass/Vol]0.4 mg/dL0.3 - 1.2 mg/dLProHuntsville Hospital System Health SystemCalcium [Mass/Vol]9.3 mg/dL8.5 - 10.5 mg/dLProSumma Health System Chloride [Moles/Vol]103 mmol/L98 - 109 mmol/LProMedica Health SystemCO2 [Moles/Vol]28 mmol/L22 - 32 mmol/[facility] Health SystemCreatinine [Mass/Vol] 0.61 mg/dL0.40 - 1.00 mg/dLCleveland Clinic Fairview HospitalComment on above:METHOD TRACEABLE TO IDWA STANDARDeGFR (CKD-EPI)non-race dependent- [facility] Hospital CenterComment on above: Reported eGFR is based on the CKD-EPI 2020 equation that does not use a race coefficient. Glucose [Mass/Vol]85 mg/dL65 - 99 mg/dLCleveland Clinic Fairview HospitalInterpretation and review of laboratory resultsAbnormalCleveland Clinic Fairview HospitalPotassium [Moles/Vol]4.3 mmol/L3.5 - 5.0 mmol/LProMedcooper green mercy hospital Health SystemProtein [Mass/Vol] 6.7 g/dL6.0 - 8.0 g/dLFormerly [facility] & [facility]idant Medical Centerodium [Moles/Vol]138 mmol/L134 - 146 mmol/LPrOhioHealth Grady Memorial Hospital SystemUrea nitrogen [Mass/Vol]8 mg/dL5 - 23 mg/dL [facility] HealthPROTEIN CREAT RATIOon 06-17-2024 RANDOM URINE CGEMJVV969 mg/LHigh<120ACMC Healthcare SystemComment on above: Performed By: #### UPCR #### [facility] ([id number]) [address], [address] [place], [place] [address]K/PRO/GAS FLOW REGULATOR RATIO CALC0.08Normal<0.2PPremier Health Atrium Medical Center Comment on above:Result Comment: Nephrotic Syndrome is associated with ratios >3.5Performed By: #### UPCR #### [facility] ([id number]) [address], [address] [place], [place] [address]LFBWM CREATININE,CAV433.75 mg/dLOhioHealth Hardin Memorial Hospital Comment on above:Performed By: #### UPCR #### [facility] ([id number]) [address], [address] [place], [place] [address] PREG LESS THAN 14 WKS WITH TRANSVAGINALon 29-91-2526SE PREG LESS THAN 14 WKS WITH TRANSVAGINALUS PREG LESS THAN 14 WKS WITH TRANSVAGINAL CLINICAL HISTORY: Dates and viability Comparison: None FINDINGS: * Single live IUP at 8 weeks 5 days. North Pole-rump length 2.5 cm. Yolk sac visualized. Heart [...] by Gabriele Person MD on 05/29/2024 7:29 [facility] CHLAMYDIA/GC PCR, FLon 80-53-0655SYZERPYKE/GC PCR, FLCHLAMYDIA PCR, FL Negative (qualifier value) Chlamydia trachomatis not detected by nucleic acid amplification. This does not exclude the possibility of infection because results are dependent on adequate specimen collection. GONORRHOEAE PCR, FL Negative (qualifier value) Neisseria gonorrhoeae not detected by nucleic acid amplification. This does not exclude the possibility of infection because results are dependent on adequate specimen collection.[facility] Comment on above:Performed By: #### UA #### [facility] ([id number]) [address] [place] [address], [address] [place], [place] [address]Cytologyon 08-08-1171NbihfzesZwsfsufvMlqEricxw [facility] Comment on above:Result Comment: [facility] [address] [place] [address] Gynecologic Cytology Consultation Patient Name:DELICIA SHAW:1995 (Age: 29)Gender:FTaken:05/20/2024Reported:06/01/2024Physician(s):Sanjuanita Nguyen, DEEPIKA- UX DESIGNER ([phone])Copy To: Rec. #:[id number]: #[id number] Final Cytologic Interpretation ThinPrep Pap Test (Cervical): Satisfactory for evaluation. A transformation zone component is present. SQUAMOUS EPITHELIAL CELL ABNORMALITY Atypical squamous cells of undetermined significance (ASC-US). Shift in vaginal dez suggestive of bacterial vaginosis. cjb/06/01/2024 Interpretation performed at [facility], [address] [place] [address], License number: [id number]. Electronically Signed Out By Amy Carter MD Date of Last Menstrual Period: (None Given) Other Clinical Conditions: Z01.419 Log Buyer exam wo/abn findings Z34.91 Source of Specimen ThinPrep Pap Test (Cervical) Thin Prep Pap (METAL MOVER) Fee Code(s): G0145, 10467 The Pap test is a screening test with an inherent, but low, probability of error. The Pap test is primarily effective for the diagnosis and prevention of squamous cell carcinoma. Regular screening iscritical for prevention. ThinPrep liquid-based slides, which meet the Yard Jockey criteria for automated screening, have been screened by the ThinPrep Imaging System (as of 11/11/06) along with an additional manual rescreening by a director of strategy & mobile and, if indicated, by a pathologist.HIGH RISK HPV W/GENOon 58-49-3004JLS 31+33+35+39+45+51+52+56+58+59+66+68 DNA FILIPE+probe Ql (Cvx)HPV SPECIMEN TYPE ThinPrep HPV 16 Negative (qualifier value) HPV 18 Negative (qualifier value) OTHER HIGH RISK HPV Negative (qualifier value) HPV types 31,33,35,39,45,52,56,58,59,66 and 68 DNA were undetectable.NormalProMedica Menlo Park Va HospitalComment on above: Performed By: #### UA #### [facility] ([id number]) [address], [address] [place], [place] [address]CNSKFCWLI PANEL PCRon 89-22-1464ZNTGYSZUK PANEL PCRBACT. VAGINOSIS DNA Detected (qualifier value) [...] accordance with clinical presentation to determine patient diagnosis.NormalACMC Healthcare SystemComment on above:Performed By: #### VPPCR #### [facility] ([id number]) [address], [address] [place], [place] [address]BJLOO HEPATITIS PANELon 02-43-9906RWEO HCV W/PCR REFLX Non-ReactiveUniversity Hospitals TriPoint Medical CenterComment on above:Result Comment: NEW TEST METHOD NOTE If recent infection suspected, recommend repeat testing (>2 months). Ctsuvx-ws-xzlzgl ratio is <1.00.Performed By: #### CBC, 27337-4, 88465-2, AHP, 33077-1, 08306-0, 95187-1 #### [facility] ([id number]) [address], [address] [place] [address]AKIEPFJBP A IGMNon-ReactiveUniversity Hospitals TriPoint Medical Center Comment on above:Result Comment: NEW TEST METHODPerformed By: #### CBC, 35145-9, 12943-4, AHP, 25487-6, 85980-7, 62580-0 #### [facility] ([id number]) [address], [address] [place], [place] [address]VLEKWSPGI B CORE IGMNon-ReactiveUniversity Hospitals TriPoint Medical CenterComment on above:Result Comment: NEW TEST METHODPerformed By: #### CBC, 37687-5, 90788-7, AHP, 51434-4, 19420-9, 52711-5 #### [facility] ([id number]) [address], [address] [place], [place] [address]DRQSVCQZE B SURF AGNon-ReactiveNormalNRCTProDell Children'S Medical CenterComment on above:Result Comment: NEW TEST METHODPerformed By: #### CBC, 21950-4, 90552-9, AHP, 93163-5, 97058-1, 13582-7 #### [facility] ([id number]) [address], [address] [place], [place] [address]NLOXCSJH BLOOD COUNTon 96-06-4369Igwkaynvlxk distribution width (RBC) [Ratio]14.1 %Jogrpc82.5-15.0[facility] Hospital - CincinnatiComment on above: Performed By: #### CBC, 96269-1, 75380-7, AHP, 36249-9, 10508-3, 05483-4 #### [facility] ([id number]) [address], [address] [place], [place] [address]Znljandoqz (Bld) [Volume fraction]40.3 %Rkieug22-54EccVxuddbDell Children'S Medical CenterComment on above:Performed By: #### CBC, 12283-6, 61426-1, AHP, 55606-8, 26843-8, 97259-6 #### [facility] ([id number]) [address], [address] [place], [place] [address]Rhuywzegvj (Bld) [Mass/Vol]13.7 g/yREjngby53.7-15.5PHenry County HospitalComment on above:Performed By: #### CBC, 94153-9, 36870-5, AHP, 93362-6, 90071-7, 94831-4 #### [facility] ([id number]) [address], [address] [place], [place] [address]SDY (RBC) [Entitic mass]29.4 zrKvybak11-67HelFxzsywDell Children'S Medical CenterComment on above:Performed By: #### CBC, 29730-0, 54871-3, AHP, 08126-3, 76684-5, 08026-5 #### [facility] ([id number]) [address], [address] [place], [place] [address]GRCV (RBC) [Mass/Vol]33.9 g/qYChpcgy48-61FvnCwnqehSelect Medical Specialty Hospital - CincinnatiComment on above:Performed By: #### CBC, 35006-7, 78140-0, AHP, 87595-5, 40337-0, 61932-6 #### [facility] ([id number]) [address], [address] [place], [place] [address]YAU (RBC) [Entitic vol]87 cDAyaufi70-932NvnQgeizv [facility]ont HospitalComment on above:Performed By: #### CBC, 36453-2, 64922-1, AHP, 65440-1, 37583-5, 61652-0 #### [facility] ([id number]) [address], [address] [place], [place] [address]Atvlkngu mean volume (Bld) [Entitic vol]10.2 fLNormal7-12 [facility] - CincinnatiComment on above:Performed By: #### CBC, 33323-1, 13121-1, AHP, 06349-7, 04019-1, 97890-0 #### [facility] ([id number]) [address], [address] [place], [place] [address]Gcdbbddjl (Bld) [#/Vol]256 10*3/oRNmosex646-241YnbQcdqru [facility] HospitalComment on above:Performed By: #### CBC, 15353-9, 35771-2, AHP, 50900- 5, 40715-8, 29166-2 #### [facility] ([id number]) [address], [address] [place], [place] [address]YTH COUNT4.64 X10E12/LNormal3.80-5.20[facility] Comment on above:Performed By: #### CBC, 55771-5, 41316-4, AHP, 96946-7, 27544- 4, 19725-5 #### [facility] ([id number]) [address], [address] [place], [place] [address]ODU (Bld) [#/Vol]7.1 10*3/uLNormal4.0-11.0ProDell Children'S Medical CenterComment on above:Performed By: #### CBC, 32987-5, 16855-4, AHP, 90935-7, 14291-6, 23205-0 #### [facility] ([id number]) [address], [address] [place], [place] [address]JLHW SCREEN, URINEon 18-44-9998EDUSGRVESMW/METHAMPNegativeNormal NEGSelect Medical Specialty Hospital - CincinnatiComment on above:Result Comment: AMPH/METH screening cut off = 1000 ng/mLPerformed By: #### DSU #### [facility] ([id number]) [address], [address] [place], [place] [address]BSFEGSRXGFBRWvcdywboMxjlguNOPZrsGwhddv [facility] HospitalComment on above:Result Comment: Barbiturates screening cut off value = 200 ng/mL Performed By: #### DSU #### [facility] ([id number]) [address], [address] [place], [place] [address]SKJTBIBZSJUKAVPOhcqcbnpZokxltHPFEvkIqimoa [facility] Comment on above:Result Comment: Benzodiazepines screening cut off value = 200 ng/mLPerformed By: #### DSU #### [facility] ([id number]) [address], [address] [place], [place] [address]VFFBBIEHJBUSDxnsxogrKcypclDHOWapVkqlqp [facility] HospitalComment on above:Result Comment: Cannabinoids/THC screening cut off value = 50 ng/mL Performed By: #### DSU #### [facility] ([id number]) [address], [address] [place], [place] [address]AHASRWY METABOLITENegativeNoSelect Medical Specialty Hospital - [facility] Comment on above:Result Comment: Cocaine screening cut off value = 300 ng/mL Performed By: #### DSU #### [facility] ([id number]) [address] [address], [address] [place], [place] [address]YEHOEMFFxcqzkvnPuxbxsWPRNjuOblnch [facility] HospitalComascension river district hospital on above:Result Comment: Ecstasy screening cut off value = 500 ng/mL This report is intended for use in clinical monitoring or management of patients.Performed By: #### DSU #### [facility] ([id number]) [address] [address], [address] [place], [place] [address]QYLURJRWYMnmnoztrAfpwwjGGPCviZkuqzd [facility] HospitalComascension river district hospital on above:Result Comment: Methadone screening cut off value = 300 ng/mL.Performed By: #### DSU #### [facility] ([id number]) [address], [address] [place], [place] [address]LZJYGBSMnqexhqrWagsgvTQJJvmPubaxk [facility] HospitalComascension river district hospital on above:Result Comment: Opiates screening cut off value = 300 ng/mL NOTE: This test is used for the detection of codeine, hydrocodone (>1000 ng/mL), morphine and hydromorphone (>900 ng/mL) in urine.Performed By: #### DSU #### [facility] ([id number]) [address], [address] [place], [place] [address]PHEQMSCPHWwikzrowPkzxkeJWJNnzVsgpev [facility] HospitalComascension river district hospital on above:Result Comment: Oxycodone screening cut off value = 300 ng/mL NOTE: This test is used for the detection of oxycodone and oxymorphone in urine.Performed By: #### DSU #### [facility] ([id number]) [address] [facility] [address], [address] [place], [place] [address]GQQLJMOXLYTJYStwpqokxOfwvziGQOWlgQevnsu [facility] HospitalComascension river district hospital on above:Result Comment: Phencyclidine screening cut off value = 25 ng/mL Performed By: #### DSU #### [facility] ([id number]) [address] [address], [address] [place], [place] [address]JDZ.beta subunit IA 3rd IS Qnon 87-50-[place] [address] m[IU]/mLNormalSelect Medical Specialty Hospital - CincinnatiComascension river district hospital on above:Result Comment: NEW REFERENCE RANGE WEEKS [...] or nontrophoblastic neoplasms. Performed By: #### DEMETRIO, 90198-1, 37873-5, ASHLEY, 58739-0, 03322-0, 06127-5 #### [facility] ([id number]) [address], [address] [place], [place] [address]IRS 1+2 Ab+HIV1 p24 Ag IA Qlon 06-42-0892ULS 1 and 2 Ab/Ag ScreenNon-ReactiveNormalNRCTSelect Medical Specialty Hospital - CincinnatiComascension river district hospital on above:Result Comment: NEW TEST METHOD NOTE [...] test results or diagnoses.Performed By: #### DEMETRIO, 75073-6, 36728-7, ASHLEY, 24260-9, 54261-4, 10251-4 #### [facility] ([id number]) [address], [address] [place], [place] [address]Mxsotbk virus Ab Ql (S)on [id number] IMMUNE IgG1.0 AI NormalProDell Children'S Medical CenterComment on above:Result Comment: Interpretation-------- <0.8 NEGATIVE-considered Not Immune 0.8-0.9 EQUIVOCAL-consider retesting with new specimen >0.9 POSITIVE-considered Immune Performed By: #### DEMETRIO, 04918-6, 91176-6, ASHLEY, 29133-3, 38151-7, 73565-1 #### [facility] ([id number]) [address] [place], [place] [address]Y. pallidum IgG+IgM IA Ql (S)on [id number] Total<0.2 Normal0.0-0.8Select [facility] - CincinnatiComment on above:Result Comment: NON REACTIVE No serologic evidence of infection to Treponema pallidum (syphilis). Repeat testing may be considered in patients with suspected acute or primary syphilis in 2 to 4 weeks.Performed By: #### DEMETRIO, 28330-1, 80645-2, AHP, 18219-8, 58127-8, 81272-7 #### [facility] ([id number]) [address], [address] [place], [place] [address]ZQLLUNBMQDyk 99-85-0395Wawzndoio Ql (U)NegativeNormalNEG ProMMercy Medical CenterComment on above:Performed By: #### UA #### [facility] ([id number]) [address], [address] [place], [place] [address]VSRCR/HGBNegativeNormalNEGSelect Medical Specialty Hospital - CincinnatiComment on above:Performed By: #### UA #### [facility] ([id number]) [address], [address] [place], [place] [address]Utwzt (U)YELLOWNormalYELLOWSelect Medical Specialty Hospital - CincinnatiComment on above:Performed By: #### UA #### [facility] ([id number]) [address], [address] [place], [place] [address]Gadyuyb Ql (U)NegativeNormalNEGSelect Medical Specialty Hospital - CincinnatiComascension river district hospital on above:Performed By: #### UA #### [facility] ([id number]) [address], [address] [place], [place] [address]Neuvxqg Ql (U)NegativeNormalNEGSelect Medical Specialty Hospital - CincinnatiComascension river district hospital on above:Performed By: #### UA #### [facility] ([id number]) [address], [address] [place], [place] [address]Fqcvleizm esterase Test strip Ql (U)NegativeNormalNEGSelect Medical Specialty Hospital - CincinnatiComascension river district hospital on above:Performed By: #### UA #### [facility] ([id number]) [address], [address] [place], [place] [address]Vvnibdq Ql (U)NegativeNormalNEGSelect Medical Specialty Hospital - CincinnatiComascension river district hospital on above:Performed By: #### UA #### [facility] ([id number]) [address], [address] [place], [place] [address]aA (U)6.5 [pH]Normal5.0-8.5ProMedLos Banos Community HospitalComascension river district hospital on above:Performed By: #### UA #### [facility] ([id number]) [address], [address] [place], [place] [address]Sxixljr Ql (U)NegativeNormalNEGSelect Medical Specialty Hospital - CincinnatiComascension river district hospital on above:Performed By: #### UA #### [facility] ([id number]) [address], [address] [place], [place] [address]Ldfnwpiw gravity (U) [Rel density]1.894Awnfik9.003-1.035 ProMMercy Medical CenterComment on above:Performed By: #### UA #### [facility] ([id number]) [address], [address] [place], [place] [address]OOMBKVTJVNIBCYBozwjeECUXVFuoWxzbty Fremont HospitalComment on above:Performed By: #### UA #### [facility] ([id number]) [address], [address] [place], [place] [address]Sfhcimkmcuut (U) [Mass/Vol]mg/dLNormal<1.1PHenry County HospitalComment on above:Performed By: #### UA #### [facility] ([id number]) [address], [address] [place], [place] [address]GIBAT CULTUREon 33-75-4589Bswyzpjm identified Cx Nom (U)CULTURE RESULTS <10,000 ORGANISMS/ML NORMAL URO GENITAL FLORAPaulding County Hospital Comment on above:Performed By: #### UA #### [facility] ([id number]) [address], [address] [place], [place] [address]UZ PREG LESS THAN 14 WKS WITH TRANSVAGINALon 90-98-1900FT PREG LESS THAN 14 WKS WITH TRANSVAGINALUS PREG LESS THAN 14 WKS WITH TRANSVAGINAL CLINICAL HISTORY: Dates viability Comparison: None FINDINGS: * Single live IUP at 6 weeks 5 days. [place]-rump length 7.8 mm. Yolk sac visualized. Heart [...] by Gabriele Person MD on 05/11/2024 1:41 PMNormalSelect Medical Specialty Hospital - Cincinnati VZV IgG IA Ql (S)on 40-70-9280BLJIHDVXA IgG1.4 AIHigh<0.9Select Medical Specialty Hospital - CincinnatiComment on above:Result Comment: Interpretation-------- <0.9 Negative 0.9 - 1.0 Equivocal >1.0 Positive Performed By: #### CBC, 97576-4, 23869-0, AHP, 90259-2, 54585-0, 23254-4 #### [facility] ([id number]) [address] [place], [place] [address]Jwo 95-49-5512LRgnnvwrb: [id number] Received: 12/16/23 Status: ALEXANDRAI Dover Num: [id number] Spec Type: Surgical Subm Dr: Kj Mcclelland DO Tissues: A Appendix - Other than Incidental (APPENDIX) Procedures: HE/2, Gross/Micro L3 Age/ Patient Sex Location Account Attending Physician Delicia Shaw 28/F [place] [id number] Kj Mcclelland DO SPEC NUM: [id number] RECD: 12/16/23 STATUS: ALEXANDRIA DOVER NUM: [id number] TATYANA: 12/12/[address]: Kj Mcclelland DO ENTERED: 12/16/[address]: Alvin Mishra SPEC TYPE: Surgical DEPT: RENEA CHRISTENSEN ENTERED BY: [id number] RECV BY: [id number] ORDERED: HE/2, Gross/Micro L3 ORDERED: HE/2, Gross/Micro [...] Microscopic Description Microscopic examination is performed. Specimen: [id number] Received: 12/16/23 Status: ALEXANDRIA Reagan Num: [id number] Spec Type: Surgical Subm Dr: Kj Mcclelland, Tissues: A Appendix - Other than Incidental (APPENDIX) Procedures: HE/2, Gross/Micro L3 Patient: Delicia Shaw [id number] (Continued) Specimen: [id number] Received: 12/16/23 (Continued) Signed (signature on file) Junior Norton MD 12/18/23 1458 Specimen: [id number] Received: 12/16/23 Status: ALEXANDRIA Dover Num: [id number] Spec Type: Surgical Subm Dr: Kj Mcclelland DO Tissues: A Appendix - Other than Incidental (APPENDIX) Procedures: HE/2, Gross/Micro L3 Patient: Delicia Shaw [id number] (Continued) Specimen: [id number] Received: 12/16/23 (Continued) CPT Codes 93311 Specimen: [id number] Received: 12/16/23 Status: ALEXANDRIA Dover Num: [id number] Spec Type: Surgical Subm Dr: Kj Mcclelland,DO Tissues: A Appendix - Other than Incidental (APPENDIX) Procedures: HE/2, Gross/Micro L3 Patient: Delicia Shaw [place] [id number] (Continued) Signed (signature on file) Junior Norton MD 12/18/23 1458Normal The [facility] Physician GroupSurgical PathologyOrdered By: Heather Mcneil on 57-27-8717CifGijyapAdena Fayette Medical CenterHCG, Quanton 33-69-8173GKM, Quant<1Normal<5 [facility] CenterComment on above:Result Comment: Non-preg premeno <=5 Postmeno <=8 Male <=3 If HCG results do not concur with clinical observations, additional testing to confirm results is recommended. Elevated results not associated with may be found in patients with other diseases such as tumors of the germ cells (testis, ovaries, etc.), bladder, pancreas, stomach, lungs, and liver.Performed By: #### [facility] #### [employer] [address] [place] [address] [id number] Sock Boarder: Dragan Cabello MDHCG, Quantitative, Pregnancyon 54-05-2512rUA Quant<1<5 IU/LMercy Le Floch Depollution Work Phone: comment on above: Non-preg premeno <=5 Postmeno <=8 Male <=3 If HCG results do not concur with clinical observations, additional testing to confirm results is recommended. Elevated results not associated with may be found in patients with other diseases such as tumors of the germ cells (testis, ovaries, etc.), bladder, pancreas, stomach, lungs, and liver. Vital Signs Date TimeVital SignValuePerforming PuoqiakbuJgtplmjh80-05-7172 15:55-0500Body .1 cmTmercy Hahn DO Work Phone: [facility] SystemSMAT[facility]OS11-06-2025 15:55-0500Body mass index (BMI) [Ratio]23.96 kg/n8QfqytJon Hahn itzat Work Phone: [facility] SystemSM[facility]11-06-2025 15:55-0500Body .2 [degF]Jon Hahn DO Work Phone: [facility] HospitalSlanissue11-06-2025 15:55-0500Body mfaijt10.32 kgJon Hahn DO Work Phone: [facility] SystemSM[facility]11-06-2025 15:55-0500Diastolic blood ywzwzeoc42 mm[Hg]Jon Hahn DO Work Phone: [facility] HospitalSlanissue11-06-2025 15:55-0500Systolic blood mcqqguhs855 mm[Hg]Jon Hahn DO Work Phone: [facility] SystemSM[facility]11-02-2025 09:55-0500Body lsrlykcoqfw86.6 [degF]Delicia Egan APRN-CNBelgica Work Phone: [facility] SystemAula 7 Iuqzhs37-94-8079 09:55-0500Diastolic blood xpquisog57 mm[Hg]Delicia Egan APRN-CNBelgica Work Phone: [facility]11-02-2025 09:55-0500Heart rate 99 /Chiqui Egan VICTORIAN LITERATURE PROFESSOR-CNM Work Phone: [facility]11-02-2025 09:55-0500 Respiratory rate16 /Chiqui Egan VICTORIAN LITERATURE PROFESSOR-CNM Work Phone: [facility]11-02-2025 09:55-0500Systolic blood nlmhscdu897 mm[Hg]Delicia Egan VICTORIAN LITERATURE PROFESSOR-CNM Work Phone: [facility]10-27-2025 11:05-0400Body mass index (BMI) [Ratio]25.29 kg/m2Lisa Krotzer VICTORIAN LITERATURE PROFESSOR-UX DESIGNER Work Phone: [facility]10-27-2025 11:05-0400Body xuajek90.95 kgLisa Krotzer VICTORIAN LITERATURE PROFESSOR-UX DESIGNER Work Phone: [facility]10-27-2025 11:05-0400Diastolic blood mm[Hg]Sanjuanita Krotzer VICTORIAN LITERATURE PROFESSOR-UX DESIGNER Work Phone: [facility]10-27-2025 11:05-0400Systolic blood opicwszp322 mm[Hg]Sanjuanita Krotzer VICTORIAN LITERATURE PROFESSOR-UX DESIGNER Work Phone: [facility]10-24-2025 11:02-0400Body mass index (BMI) [Ratio]26.29 kg/m2Lisa Krotzer VICTORIAN LITERATURE PROFESSOR-UX DESIGNER Work Phone: [facility]10-24-2025 11:02-0400Body gyggtq19.67 kgLisa Krotzer VICTORIAN LITERATURE PROFESSOR-UX DESIGNER Work Phone: [facility]10-24-2025 11:02-0400Diastolic blood rxamvwqw49 mm[Hg]Sanjuanita Krotzer VICTORIAN LITERATURE PROFESSOR-UX DESIGNER Work Phone: [facility]10-24-2025 11:02-0400Systolic blood lnjioyhw942 mm[Hg]Sanjuanita Krotzer VICTORIAN LITERATURE PROFESSOR-UX DESIGNER Work Phone: [phone]10-17-2025 11:14-0400Body mass index (BMI) [Ratio]26.06 kg/m2Lisa Krotzer VICTORIAN LITERATURE PROFESSOR-UX DESIGNER Work Phone: 1(753)[address] [place], [place] 6651010-17-2025 11:14-0400Body eiwgfa56.03 kgLisa Krotzer VICTORIAN LITERATURE PROFESSOR-UX DESIGNER Work Phone: 1([phone])[address] [place], [place] 665[address]0-17-2025 11:14-0400Diastolic blood xinttxtg04 mm[Hg]Sanjuanita Krotzer VICTORIAN LITERATURE PROFESSOR-UX DESIGNER Work Phone: 1([phone])[address] [place], [place] 665[address]0-17-2025 11:14-0400Systolic blood ibkbhtmg783 mm[Hg]Sanjuanita Krotzer VICTORIAN LITERATURE PROFESSOR-UX DESIGNER Work Phone: [phone])[address] [place], [place] 665[address]0-09-2025 14:18-0400Body mass index (BMI) [Ratio]25.13 kg/m2Lisa Krotzer VICTORIAN LITERATURE PROFESSOR-UX DESIGNER Work Phone: [phone])[address] [place], [place] 665[address]0-09-2025 14:18-0400Body tdswmo96.49 kgLisa Krotzer VICTORIAN LITERATURE PROFESSOR-UX DESIGNER Work Phone: [phone])[address] [place], [place] 6[address]0-09-2025 14:18-0400Diastolic blood clssoicm77 mm[Hg]Sanjuanita Krotzer VICTORIAN LITERATURE PROFESSOR-UX DESIGNER Work Phone: [phone])[address] [place], [place] 6[address]0-09-2025 14:18-0400Systolic blood qcflmgfo869 mm[Hg]Sanjuanita Krotzer VICTORIAN LITERATURE PROFESSOR-UX DESIGNER Work Phone: [phone])[address] [place], [place] 6651009-25-2025 14:37-0400Body mass index (BMI) [Ratio]25.26 kg/m2PAshtabula County Medical Center09-25-2025 14:37-0400Body fiswsr16.86 kgPAshtabula County Medical Center09-25-2025 14:37-0400Diastolic blood sftiwkzq50 mm[Hg][facility] 11-19-2024 14:37-0400Systolic blood pbaoouvr204 mm[Hg][facility]09-15-2025 08:53-0400Body ldizka599.1 cmEmmett Wilkinson MD Work Phone: 1(268)413-[address] [place], [place] 7656509-15-2025 08:53-0400Body mass index (BMI) [Ratio]24.79 kg/l7YnrijEmmett Wilkinson MD Work Phone: 1(235)956-[address] [place], [place] 7656509-15-2025 08:53-0400Body nytoqb10.59 kgEmmett Wilkinson MD Work Phone: 1(238)086-[address] [place], [place] 7656509-15-2025 08:53-0400Diastolic blood gtmyyuog12 mm[Hg]Emmett Wilkinson MD Work Phone: [phone])[address]09-15-2025 08:53-0400Heart rate 98 /minEmmett Wilkinson MD Work Phone: 1(063)0-[address] [place], [place] 7656509-15-2025 08:53-9312WgK6% (BldA) [Mass fraction]97 %Emmett Wilkinson MD Work Phone: 1(198)940-[address] [place], [place] 7656509-15-2025 08:53-0400Systolic blood lmlziiub023 mm[Hg]Emmett Wilkinson MD Work Phone: 1(915)675-[address] [place], [place] 7656509-12-2025 10:51-0400Body mass index (BMI) [Ratio]23.96 kg/m2Lisa Mandootzer VICTORIAN LITERATURE PROFESSOR-UX DESIGNER Work Phone: [facility]09-12-2025 10:51-0400Body keuqpi20.31 kgLisa Krotzer VICTORIAN LITERATURE PROFESSOR-UX DESIGNER Work Phone: [facility]09-12-2025 10:51-0400Diastolic blood ofwdebre19 mm[Hg]Sanjuanita Krotzer VICTORIAN LITERATURE PROFESSOR-UX DESIGNER Work Phone: [facility]09-12-2025 10:51-0400Systolic blood zlbqizfm058 mm[Hg]Sanjuanita Krotzer VICTORIAN LITERATURE PROFESSOR-UX DESIGNER Work Phone: [facility]09-02-2025 14:13-0400Diastolic blood dktueise93 mm[Hg]Pfo [address] [place], [place] 5256709-02-2025 14:13-0400Heart rate83 /minPfo [address] [place], [place] 5256709-02-2025 14:13-0400Respiratory rate16 /minPfo [address] [place], [place] 5256709-02-2025 14:13-0400Systolic blood troqcpbm902 mm[Hg]Pfo [address] [place], [place] 5256709-02-2025 13:37-0400Body yqdbhg791.6 cmPfo 3 [facility]09-02-2025 13:37-0400Body mass index (BMI) [Ratio]23.71 kg/m2Pfo [address] [place], [place] 5256709-02-2025 13:37-0400Body xchfthemlvs81.1 [degF][address]09-02-2025 13:37-0400Body .59 kgPfo 3 [facility]09-02-2025 13:37-2659MvP5% (BldA) [Mass fraction]99 %[address]08-29-2025 10:00-0400Body mass index (BMI) [Ratio]23.58 kg/m2Lisa Mandootzer VICTORIAN LITERATURE PROFESSOR-UX DESIGNER Work Phone: [facility]08-29-2025 10:00-0400Body .22 kgLisa Krotzer VICTORIAN LITERATURE PROFESSOR-UX DESIGNER Work Phone: [facility]08-29-2025 10:00-0400Diastolic blood mm[Hg]Sanjuanita Krotzer VICTORIAN LITERATURE PROFESSOR-UX DESIGNER Work Phone: [facility]08-29-2025 10:00-0400Systolic blood cqswegig842 mm[Hg]Sanjuanita Krotzer VICTORIAN LITERATURE PROFESSOR-UX DESIGNER Work Phone: [facility]08-22-2025 14:36-0400Diastolic blood fsgefkwa38 mm[Hg]Pfo [address] [place], [place] 5256708-22-2025 14:36-0400Heart kqcd718 /minPfo [address] [place], [place] 5256708-22-2025 14:36-0400Systolic blood fxdcsiur049 mm[Hg]Pfo [address] [place], [place] 5256708-22-2025 13:51-0400Body height 167.6 [facility] Havertownfo [address] [place], [place] 5256708-22-2025 13:51-0400Body mass index (BMI) [Ratio]23.32 kg/m2Pfo [address] [place], [place] 5256708-22-2025 13:51-0400Body gnyjzrkrnjk74.7 [degF]Pfo [address] [place], [place] 5256708-22-2025 13:51-0400Body dyzgfr49.[address] [place], [place] 5256708-22-2025 13:51-0400Respiratory rate17 /minPfo [address] [place], [place] 5256708-22-2025 13:51-8809CnX7% (BldA) [Mass fraction]98 %[address]08-19-2025 14:32-0400Diastolic blood lifukmwl19 mm[Hg]Pfo [address] [place], [place] 5256708-19-2025 14:32-0400Heart rate90 /minPfo [address] [place], [place] 5256708-19-2025 14:32-0400Respiratory rate16 /minPfo [address] [place], [place] 5256708-19-2025 14:32-1857WnJ1% (BldA) [Mass fraction]100 % [address]08-19-2025 14:32-0400Systolic blood gybwrjxy25 mm[Hg]Pfo [address] [place], [place] 5256708-19-2025 13:33-0400Body addnqh922.6 [facility] Havertownfo [address] [place], [place] 2150208-19-2025 13:33-0400Body mass index (BMI) [Ratio]23.35 kg/m2fo [address] [place], [place] 5256708-19-2025 13:33-0400Body rkfmosvenqu45.29 [degF][address]08-19-2025 13:33-0400Body ucxbjh30.[address] [place], [place] 2150208-15-2025 09:46-0400Body mass index (BMI) [Ratio]23.18 kg/q5ZdschdaimDelicia BARRAGAN Work Phone: [place] [address]-15-2025 09:46-0400Body .14 kgStradha Johnston VICTORIAN LITERATURE PROFESSOR-UX DESIGNER Work Phone: [facility]08-15-2025 09:46-0400Diastolic blood pruuvxcy91 mm[Hg]Delicia Johnston VICTORIAN LITERATURE PROFESSOR-UX DESIGNER Work Phone: [facility]08-15-2025 09:46-0400Systolic blood wnosvplw940 mm[Hg]Delicia Johnston VICTORIAN LITERATURE PROFESSOR-UX DESIGNER Work Phone: [facility]08-05-2025 10:26-0400Body updvsm128.6 cmAlice Michel MD Work Phone: [phone]08-05-2025 10:26-0400Body mass index (BMI) [Ratio]23.24 kg/y3QemrswiAlice Michel MD Work Phone: [phone]08-05-2025 10:26-0400Body .32 kgAlice Michel MD Work Phone: [phone]08-05-2025 10:26-0400Diastolic blood kibymodg14 mm[Hg]Alice Michel MD Work Phone: [phone]-[facility]08-05-2025 10:26-0400Heart rate 85 /minAlice Michel MD Work Phone: [phone]08-05-2025 10:26-0400Systolic blood xwsffadd315 mm[Hg]Alice Michel MD Work Phone: [phone]07-25-2025 11:38-0400Body mass index (BMI) [Ratio]23.26 kg/m2PAs[facility]abula [facility] Center07-25-2025 11:38-0400Body jicznc00.41 kgPAshtabula County Medical Center07-25-2025 11:38-0400Diastolic blood aoubwyah33 mm[Hg]Pfws MidwifeProMedica Health System 09-18-2024 11:38-0400Systolic blood mm[Hg]Pfws [facility]07-15-2025 09:43-0400Body aupllq220.1 Galileo Putnam MD Work Phone: [phone])[address]07-15-2025 09:43-0400Body mass index (BMI) [Ratio]23.13 kg/m2Javier Putnam MD Work Phone: 1(908)[address] [place], [place] 4407007-15-2025 09:43-0400Body ndfyfn28.05 kgJavier Putnam MD Work Phone: 1(082)[address] [place], [place] 4407007-15-2025 09:43-0400Diastolic blood tjerukyp53 mm[Hg]Javier Putnam MD Work Phone: 1(659)[address] [place], [place] 4407007-15-2025 09:43-0400Heart rate 86 /Charles Putnam MD Work Phone: 1(190)[address] [place], [place] 4407007-15-2025 09:43-0400Systolic blood qpokmeic873 mm[Hg]Javier Putnam MD Work Phone: 1([phone])[address] [place], [place] 4407006-26-2025 14:33-0400Body mass index (BMI) [Ratio]22.3 kg/m2Alessandro Lawler MD Work Phone: [phone]06-26-2025 14:33-0400Body .78 kgAlessandro Lawler MD Work Phone: 1(611)[address] [place], [place] 2756806-26-2025 14:33-0400Diastolic blood qpgnblby87 mm[Hg]Alessandro Lawler MD Work Phone: 1(930)[address]06-26-2025 14:33-0400Systolic blood mm[Hg]Alessandro Lawler MD Work Phone: [phone]06-25-2025 13:50-0400Body mass index (BMI) [Ratio]22.47 kg/m2Sanjuanita BARRAGAN Work Phone: [facility]06-25-2025 13:50-0400Body armidm01.24 kgSanjuanita Nguyen VICTORIAN LITERATURE PROFESSOR-UX DESIGNER Work Phone: [facility]06-25-2025 13:50-0400Diastolic blood mm[Hg]Sanjuanita Nguyen VICTORIAN LITERATURE PROFESSOR-UX DESIGNER Work Phone: [facility]06-25-2025 13:50-0400Systolic blood wabiugzc703 mm[Hg]Sanjuanita Nguyen VICTORIAN LITERATURE PROFESSOR-UX DESIGNER Work Phone: [facility]06-04-2025 14:04-0400Body .1 [facility]06-04-2025 14:04-0400Body mass index (BMI) [Ratio]22.43 kg/m2[facility]06-04-2025 14:04-0400Body otvghy06.15 kgSaint [facility]06-04-2025 14:04-0400Diastolic blood olhbubfe30 mm[Hg][facility] 07-29-2024 14:04-0400Systolic blood juinzcnp95 mm[Hg][facility]05-21-2025 12:57-0400Body mass index (BMI) [Ratio]22.37 kg/m2[facility]05-21-2025 12:57-0400Body .96 kgSaint [facility]05-21-2025 12:57-0400Diastolic blood vmaofpxo72 mm[Hg][facility]05-21-2025 12:57-0400Systolic blood bbngavwz959 mm[Hg][facility]04-23-2025 12:58-0400Body mass index (BMI) [Ratio]21.63 kg/m2[facility]04-23-2025 12:58-0400Body avrbsp44.97 kgPRegency Hospital [facility]04-23-2025 12:58-0400Diastolic blood jmmrgatw73 mm[Hg][facility] 06-17-2024 12:58-0400Systolic blood dszznevm154 mm[Hg][facility]03-26-2025 13:51-0400Body mass index (BMI) [Ratio]20.97 kg/m2[facility]03-26-2025 13:51-0400Body kgtyak00.15 kgSaint [facility] Center03-26-2025 13:51-0400Diastolic blood binqsfaj71 mm[Hg][facility]03-26-2025 13:51-0400Systolic blood yszynrzf219 mm[Hg][facility]10-30-2024 09:15-0400Body mass index (BMI) [Ratio]21 kg/v8NdlfqhbSofía Duffyoll VICTORIAN LITERATURE PROFESSOR-UX DESIGNER Work Phone: 1([phone] [place], [place] 0743510-30-2024 09:15-0400Body yeehib42.24 kgKenoz Duffyoll VICTORIAN LITERATURE PROFESSOR-UX DESIGNER Work Phone: 1(637)715-[address] [place], [place] 0743510-17-2024 13:24-0400Body ghyrod088.4 cmRamiro Huntley ATHLETICS TEACHER Work Phone: [facility] CenterVpqbcfndus42-31-7595 13:24-0400Body mass index (BMI) [Ratio]20.48 kg/m2Ramiro Huntley ATHLETICS TEACHER Work Phone: [facility] CenterApnsldwnrk81-12-7755 13:24-0400Body temperature 97.3 [degF]Ramiro Huntley ATHLETICS TEACHER Work Phone: noCenterpoint Medical CenterAvwkilwsjr11-82-8012 13:24-0400Body ettpig08.7 kg Ramiro Huntley ATHLETICS TEACHER Work Phone: noCenterpoint Medical CenterHvfvkcvurj96-16-0619 13:24-0400Diastolic blood mvhujnwm01 mm[Hg]Ramiro Huntley ATHLETICS TEACHER Work Phone: noCenterpoint Medical CenterMylqxykfnb13-93-9724 13:24-0400Heart rate62 /min Ramiro Huntley ATHLETICS TEACHER Work Phone: [facility] CenterXrfnoftild78-32-6113 13:24-3758NmX3% (BldA) [Mass fraction]100 %Ramiro Huntley ATHLETICS TEACHER Work Phone: NOCenterpoint Medical CenterWwalkundxh60-91-3445 13:040Systolic blood fedzpzlv216 mm[Hg]Ramiro Huntley ATHLETICS TEACHER Work Phone: [facility] Encounters Encounter DateEncounter TypeCare ProviderFacilityStart: 12-31-2024 End: 19-50-8631Mzsdhd follow up visit related to original Jon Zhong Hahn DO Work Phone: [facility] Obstetrics/GynecologyComment on above: delivery delivered (Primary Dx); 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; Pain at surgical incision; Excessive incisional edema, initial encounterStart: 12-31-2024 End: 37-20-2019pokkzqqgxeUQUFHLewis County General Hospital Ambulatory PPGStart: 12-31-2024 End: 08-28-7576Hkftavmyj encounterShani MillanTuscarawas Hospital Call CenterComment on above:ordersStart: 12-23-2024 End: 70-15-2151Ftzsfwksoi and management of inpatientJoanie Velarde VICTORIAN LITERATURE PROFESSOR-CNM Work Phone: [facility] DaytonRPComment on above: delivery delivered (Primary Dx); 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; Restless leg syndrome in ; Sleep disturbance; 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; care following deliveryStart: 12-21-2024 End: 91-02-5094Cndcisqamz care Rain Nguyen VICTORIAN LITERATURE PROFESSOR-[facility] Work Phone: [facility] Obstetrics/GynecologyComment on above:GA: 98w3qQdnwb: 12-21-2024 End: 64-33-3524szmvssibhnHOWASouthern [facility] Ambulatory PPGStart: 12-20-2024 End: 82-12-8019Hmuomophe encounterBreconner SloanTuscarawas Hospital Call CenterComment on above:Back Pain (Contract: 129///)Start: 12-18-2024 End: 97-05-7056foqapssmmlAUHK M [facility] HospitalStart: 12-18-2024 End: 89-93-9088Pjhugqyvku care visitSanjuanita Gilmoreana cristinaanna VICTORIAN LITERATURE PROFESSOR-UX DESIGNER Work Phone: [facility] Obstetrics/GynecologyComment on above:GA: 15f5gSemqy: 12-18-2024 End: 64-51-4751xfyofixcltPKCG M [facility] Ambulatory PPGStart: 12-11-2024 End: 64-43-1611Lbzbwvnknc care visitSanjuanita Gilmoreana cristinaanna VICTORIAN LITERATURE PROFESSOR-UX DESIGNER Work Phone: [facility] Obstetrics/GynecologyComment on above:GA: 50y3dKjoza: 12-11-2024 End: 84-39-9238uwrsnsbjwcQPQMI [place] [facility] HospitalStart: 12-07-2024 End: 62-54-7862Dzptyr-up encounterAna [facility] CardiologyComment on above:Holter monitor 3-5 daysStart: 12-03-2024 End: 11-65-1151Qjmkqyopfz care visitSanjuanita Lindo Wendy VICTORIAN LITERATURE PROFESSOR-UX DESIGNER Work Phone: [facility] Obstetrics/GynecologyComment on above:GA: 87x4lBgbev: 12-03-2024 End: 64-65-3198oxfhfcynxvMYUB M [facility] Ambulatory PPGStart: 11-27-2024 End: 60-18-7258kmzkdqmxwjCWQVG A [facility] HospitalStart: 11-19-2024 End: 27-14-1303Zkunjooqdf care visitPfws Ob MidwifeProMedica Physicians Obstetrics/GynecologyComment on above:GA: 16f9uQbdjz: 11-19-2024 End: 73-94-9357fvbgslmlmfYEOKMQ B [facility] Ambulatory PPGStart: 11-19-2024 End: 51-38-1133Roxjkrqyl encounterAna Witt Physicians CardiologyStart: 11-17-2024 End: 88-36-3240bkbsvotblfIAGXOJROM Belgica EMMYININHolzer Hospitaltart: 11-09-2024 End: 59-16-8083Zyrikv outpatient new 60 minutesEmmett Wilkinson MD Work Phone: [facility] Physicians CardiologyComment on above: Vasovagal syncope (Primary Dx); Recurrent syncopeStart: 11-09-2024 End: 48-24-6187ffhckxvhukYSLQY A DOLSEYHolzer Hospitaltart: 11-06-2024 End: 90-27-9358dnnwgchnwqIUEENorthwest Medical Center Ambulatory PPGStart: 11-06-2024 End: 07-81-3104Qbxdzllvkn care visitSanjuanita Nguyen VICTORIAN LITERATURE PROFESSOR-UX DESIGNER Work Phone: [facility] Obstetrics/GynecologyComment on above:GA: 73x5hLukzw: 10-27-2024 End: 12-01-5262neyxywytjyQwd Infusion Chair Cherie Eaton [facility] - Medical OncologyComment on above:Iron deficiency anemia, unspecified iron deficiency anemia type (Primary Dx); 28 weeks gestation of pregnancyStart: 10-23-2024 End: 45-07-7987Itxtfp-up encounterNettie Lees APRN-CNM Work Phone: [facility] Obstetrics/GynecologyComment on above:CBC auto differential, Iron and TIBC, FerritinStart: 10-23-2024 End: 84-30-9475Ugntccajml care visitSanjunaita Nguyen VICTORIAN LITERATURE PROFESSOR-UX DESIGNER Work Phone: [facility] Obstetrics/GynecologyComment on above:GA: 49b8mNxrbp: 10-23-2024 End: 42-93-4739fbiwjzqkcbUWBJNorthwest Medical Center Ambulatory PPGStart: 53-07-2694gzqisajjgmJABYCollette MunozHollywood Community Hospital of Van Nuystart: 10-19-2024 End: 61-46-4592Acipkargb encounterLucinda Nunez CMAAvita Health Systemca Physicians CardiologyStart: 10-16-2024 End: 59-51-0447khfouhowkaOuf Infusion Chair 3Dorothy L [facility] OncologyComment on above:Iron deficiency anemia, unspecified iron deficiency anemia type (Primary Dx); 28 weeks gestation of pregnancyStart: 10-15-2024 End: 41-54-4591Ygalvtjqf encounterSandra Lynn [facility]OSPITALProMedica Physicians CardiologyStart: 10-14-2024 End: 12-84-5498Qmhofx-up encounterSchantal Johnston APRN-UX DESIGNER Work Phone: [facility] Obstetrics/GynecologyComment on above:Urogenital Ureaplasma and Mycoplasma Species by PCR: UrineStart: 10-13-2024 End: 96-46-9763Uijhfuboq encounterTrevor Hurd APRN-CN Work Phone: [facility] Obstetrics/GynecologyComment on above:Pelvic PainStart: 10-13-2024 End: 99-62-7943bvmcjhtugrWku Infusion Chair Krisdb Zhong [facility] - Medical OncologyComment on above:28 weeks gestation of (Primary Dx); Iron deficiency anemia, unspecified iron deficiency anemia typeStart: 10-09-2024 End: 28-52-3303Zgaayrmkkn care visitSteplali Johnston VICTORIAN LITERATURE PROFESSOR-UX DESIGNER Work Phone: [facility] Obstetrics/GynecologyComment on above:GA: 15k7xIgoum: 10-09-2024 End: 55-48-9589lxjzuixensDCQZUY Jenna [facility] Ambulatory PPGStart: 09-30-2024 End: 63-76-5136Gcxhbk-up encounterAlice Michel MD Work Phone: [facility] [place] EndocrinologyComment on above:Thyroid profile includes TSH FT4, Thyroid antibodies includes TPO and TGABStart: 09-29-2024 End: 78-32-8294Hbnvwf outpatient new 45 minutesAlice Michel MD Work Phone: [facility] [place] EndocrinologyComment on above:Subclinical hypothyroidismStart: 09-29-2024 End: 48-28-7695ixgdwfmiswXKVGOYL RODMercy Health [facility] Ambulatory PPGStart: 09-21-2024 End: 76-88-5837Tdokge-up encounterErvincarla Lozoya Yoana VICTORIAN LITERATURE PROFESSOR-CNM Work Phone: [facility] Obstetrics/GynecologyComment on above:Iron and TIBC, Thyroid profile includes TSH FT4, Ferritin, Additional followed-up results: 4Start: 09-18-2024 End: 11-65-1499dnqafrerziJYJZ R ZIENTEKProMedica Salinas Surgery Centertart: 09-18-2024 End: 10-62-6680Ggooepcdvg care visitPfws Ob MidwifeProMedica Physicians Obstetrics/GynecologyComment on above:GA: 48u4fMkxgb: 09-08-2024 End: 76-07-1651Vzxfee outpatient new 45 [facility] Centerdavid Putnam MD Work Phone: [facility] Neurology Sharp Coronado Hospitalomment on above:Migraine with aura and without status migrainosus, not intractable (Primary Dx); Recurrent syncope; Migraine without aura and without status migrainosus, not intractable; Second trimester ; Hx of migraine during ; Visual disturbancesStart: 09-08-2024 End: 97-79-5817ahiiwxsgcgXXJTCommunity Hospital East Ambulatory PPGStart: 09-07-2024 End: 44-27-5823Udgqv Zahra Wilkinson MD Work Phone: [facility] CardiologyStart: 08-20-2024 End: 45-79-6189Jnimyo consultation new/estab patient 40 Liu Lawler MD Work Phone: Maternal Medicine McgaheysvilleComment on above: Vasovagal syncope (Primary Dx); 21 weeks gestation of pregnancyStart: 08-20-2024 End: 57-76-6377sznvsghedhHXCMercy Health Defiance Hospital Ambulatory PPGStart: 08-19-2024 End: 41-08-1610Mwalbefrmw care visitSanjuanita Nguyen VICTORIAN LITERATURE PROFESSOR-UX DESIGNER Work Phone: [facility] Obstetrics/GynecologyComment on above:GA: 50x5xIuyta: 08-19-2024 End: 17-56-0707mmbiqwglikAUTX M KROTZERWayne Hospital Ambulatory PPGStart: 79-25-6157gdytkebktwFIENJammie CheneyKettering Health Miamisburg HospitalStart: 08-03-2024 End: 27-76-5043KewbunLeah Nguyen VICTORIAN LITERATURE PROFESSOR-UX DESIGNER Work Phone: [facility] Obstetrics/GynecologyComment on above: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); with 18 completed weeks gestationStart: 07-29-2024 End: 36-25-1360Luccey outpatient visit 15 minutesPalliancehealth ponca city – [facility] Ob MidwifeProMedica Women's Services - CyldeComment on above:Screening for STD (sexually transmitted disease) (Primary Dx); BV (bacterial vaginosis)Start: 07-29-2024 End: 81-62-6681ymqgvylnmcKAQXZUAurora Medical Center– Burlington PPGStart: 07-16-2024 End: 32-02-5237Rmntspvqd encounterPatricia NuñezAvita Health Systemchio Neurology, A Department of ProMedicAccess Hospital Dayton HospitalComment on above:New PatientStart: 77-99-8130nqwcjkxqouUCKMJammie CheneySamaritan North Health Center HospitalStart: 07-15-2024 End: 57-12-0307Wxpjlfhetr care visitPalliancehealth [place] city – [place] [facility] Ob MidwifeProWestern Reserve Hospitalca Women's Services - CyldeComment on above:GA: 74u5eRjjwg: 07-15-2024 End: 23-37-9016fuibyzqwaaKNHFUXPiedmont [facility] Hospital Ambulatory PPGStart: 06-22-2024 End: 11-40-0762Gbdwnhmtz Josephine Kellyca Physicians Obstetrics/GynecologyStart: 06-18-2024 End: 06-00-6351Ftkiyi Harjit Stark Physicians Obstetrics/GynecologyComment on above: care, first trimester (Primary Dx)Start: 06-17-2024 End: 33-97-7451aauudeykmzYQUFJammie CheneyKettering Health Miamisburg HospitalStart: 06-17-2024 End: 28-73-3551vmqgemiiznSOZOJammie CheneyMemorial Hermann Greater Heights Hospitaltart: 06-17-2024 End: 13-52-4265Ccbckvmegq care visitPalliancehealth [place]ca city – [place] Ob MidwifeProMedica Women's Services - CyldeComment on above:GA: 69w1wXtkmp: 06-17-2024 End: 03-08-4271rhkyulduzuARCNSOGreat Lakes Health System Ambulatory PPGStart: 06-11-2024 End: 33-94-5927zxssrnqqknKUTTESERE M MACMAINProSamaritan North Health Center HospitalStart: 75-27-3847ynomnpurdcEFCW Belgica KROTZERProSamaritan North Health Center HospitalStart: 05-28-2024 End: 90-95-1454gdhagoiwmcLXYX M KROTZERProMemorial Hermann Greater Heights Hospitaltart: 05-21-2024 End: 04-21-7902Uaagkw Karmen Nguyen VICTORIAN LITERATURE PROFESSOR-UX DESIGNER Work Phone: [facility] Obstetrics/GynecologyComment on above:BV (bacterial vaginosis) (Primary Dx)Start: 05-20-2024 End: 22-92-8320bmqvuiccnjHMZF M KROTZERProMedica Gay HospitalStart: 05-20-2024 End: 15-55-8373Lqgibyp care visitPalliancehealth [place] city – [place] [facility] Ob MidwifeProMedica Women's Services - CyldeComment on above:GA: 7h9sVqzdi: 05-20-2024 End: 33-51-1876rrecgufrkwFLEWJNWatertown Regional Medical Center PPGStart: 05-20-2024 End: 52-34-8988Ccfzijofy for gynecological examination (general) (routine) without abnormal findingsFauquier Health System SystemStart: 05-20-2024 End: 12-78-5452maltaafmchOEOT M KROTZERProMedica Salinas Surgery Centertart: 06-16-1791Slacpbevz for gynecological examination (general) (routine) without abnormal findingsSANJUANITA GILMOREOTZERProMedica Dixon HospitalStart: 05-14-2024 End: 71-62-8243Yswtzx Karmen Nguyen VICTORIAN LITERATURE PROFESSOR-UX DESIGNER Work Phone: [facility] Obstetrics/GynecologyComment on above:Nausea/vomiting in pregnancyStart: 05-13-2024 End: 11-03-7912Ogpibv Karmen Belgica Wendy VICTORIAN LITERATURE PROFESSOR-UX DESIGNER Work Phone: [facility] Obstetrics/GynecologyComment on above:Nausea/vomiting in (Primary Dx)Start: 05-11-2024 End: 19-40-8587Jawffj Karmen Belgica Wendy VICTORIAN LITERATURE PROFESSOR-UX DESIGNER Work Phone: [facility] Obstetrics/GynecologyComment on above: care, first trimester (Primary Dx)Start: 05-05-2024 End: 58-38-6661Ssdgbjz care Rain Belgica Wendy VICTORIAN LITERATURE PROFESSOR-UX DESIGNER Work Phone: [facility] Obstetrics/GynecologyComment on above:First trimester (Primary Dx)Start: 05-05-2024 End: 76-34-5848rhapspopguZZJU M KROTZERWayne Hospital Ambulatory PPGStart: 12-25-2023 End: 99-88-5276Rqrlkv follow up visit related to original Silvino Boucher VICTORIAN LITERATURE PROFESSOR-UX DESIGNER Work Phone: [facility] Physicians General SurgeryComment on above: Status post laparoscopic appendectomy (Primary Dx)Start: 12-19-2023 End: 79-17-5720Qkjqii OnlyNot In System Ref ProvProMedica Physicians General SurgeryStart: 12-13-2023 End: 49-79-1345Qnhxzt Marino Boucher VICTORIAN LITERATURE PROFESSOR-UX DESIGNER Work Phone: [facility] Phys[facility] General SurgeryComment on above: Status post laparoscopic appendectomy (Primary Dx); Postoperative painStart: 12-12-2023 End: 49-70-0161svrmvsafubLdhxdfx E GrillisCentral Carolina Hospitalkristi [facility] Work Phone: Start: 12-12-2023 End: 60-35-0673Cwvvzvty ReferredDO Kj Mcclelland Work Phone: [facility]-LAB Path Spec Beltrami HospStart: 12-12-2023 End: 28-01-0874Kgoasv Ronen Huntley NP Work Phone: [facility] FMStart: 12-12-2023 End: 75-10-4263Sepuxd flowsYandel Huntley ATHLETICS TEACHER Work Phone: [facility] FMStart: 12-12-2023 End: 53-02-3481Gqqffk outpatient visit 10 Jovanny Díaz Huntley ATHLETICS TEACHER Work Phone: [facility] CI FMComment on above:Lower abdominal pain (Primary Dx)Start: 12-12-2023 End: 47-54-5375potnmzyxyeAWR Arjun HUNTLEYNot AvailableStart: 08-28-2023 End: 75-80-5893dezxxpswxjIFGZPE B BERRYNot AvailableStart: 04-10-2022 End: 24-56-8543lbfaakddzxXiiub Can HermillerFacility:[facility] - ClarkStart: 06-08-2020 End: 26-71-6902Vietfsy encounter procedureNILDA Díaz RETTIGJane Kaiser Foundation Hospitaltart: 06-08-2020 End: 91-95-8724Mpxckqwhmi hospital visit by Abelino Daniels OB and METAL MOVER Comment on above:Late menses Procedures DateProcedureProcedure DetailPerforming ClinicianStart: 49-69-0093Ekzmfnkwil carePostpartum CareTANANAND Zhong WATSONStart: 53-31-1409Qwizk depression screening assessmentShani MillanStart: 83-22-7027Pjkgo count complete automated Delicia Egan APRN-CNM Work Phone: Start: 12-24-2024 End: 19-54-8216Yhmxsjai sectionGudeliay Darell Segura DO Work Phone: Start: 10-35-0033Bnthxzil screenLISA KROTZERComment on above:Performed By: #### CBC, 70148-0, 58521-2, P, 90251-9, 39555-0, 96011-5 #### [facility] ([id number]) [address], [address] [place], [place] [address]Szmei: 07-70-8813Glsrj count complete automatedKathleen S Ros VICTORIAN LITERATURE PROFESSOR-CNM Work Phone: Start: 35-77-7519Xokvv typing serologic aboKathleen S Ros VICTORIAN LITERATURE PROFESSOR-CNM Work Phone: Start: 10-96-1962IEORL TUBESKathleen S Ros VICTORIAN LITERATURE PROFESSOR-CNM Work Phone: Start: 72-69-0995UPWIB TUBES PST TOPKathleen S Ros VICTORIAN LITERATURE PROFESSOR-CNM Work Phone: Start: 67-81-1671Vjb routine ecg w/least 12 lds w/i&r Emmett Wilkinson MD Work Phone: Start: 60-49-6831DNXDQ FREE CELL DNA (NON-[facility]) Sanjuanita Lindo Wendy VICTORIAN LITERATURE PROFESSOR-UX DESIGNER Work Phone: Start: 47-11-1297Pxwwszwhpop observation [Identifier] in Cervix by Cyto stainPalliancehealth ponca city – [facility] MidwifeStart: 43-84-6452Acnvu i surg pathology gross examination onlyNot In System Ref ProvStart: 56-84-5024Ytsysjmjuzww chorionic quantitativeBrittney C Marcin Plan of Treatment DateCare ActivityDetailAuthorStart: 96-72-5162CAtX,Tdap and Td Vaccines (5 - Td or Tdap)DTaP,Tdap and Td Vaccines (5 - Td or Tdap)[facility] SystemStart: 23-23-0226Vdzjhsmfp for malignant neoplasm of cervixPap SmearProWestern Reserve Hospitalca [facility] SystemStart: 61-84-8272Oqwwqcikag ScreeningDepression ScreeningProWestern Reserve Hospitalca [facility] SystemStart: 95-92-5483Xbhuokh ScreeningTobacco ScreeningAvita Health Systemca [facility] System Start: 62-19-1160Sqqou BMI ScreeningAdult BMI ScreeningAvita Health Systemca [facility] Start: 55-95-7434Iynzvtu ScreeningTobacco ScreeningAvita Health Systemca Health SystemStart: 42-53-9541Ahkbz BMI ScreeningAdult BMI ScreeningProWestern Reserve Hospitalca [facility] SystemStart: 09-75-7748Oujfcib ScreeningTobacco ScreeningProMedica Health SystemStart: 94-49-8348Wdhba BMI ScreeningAdult BMI ScreeningProMedica Health SystemStart: 84-83-1852Pqovnby ScreeningTobacco ScreeningProMedica Health SystemStart: 28-58-9337Gtimj BMI ScreeningAdult BMI ScreeningProMedica Health SystemStart: 68-41-9508Ssyoukm ScreeningTobacco ScreeningProMedica Health SystemStart: 37-49-6306Rkmvl BMI ScreeningAdult BMI ScreeningProMedica Health SystemStart: 73-84-2440Rumatqa ScreeningTobacco ScreeningProMedica Health SystemStart: 61-76-5476Bpace BMI ScreeningAdult BMI ScreeningProMedica Health SystemStart: 68-12-7938Thlohle ScreeningTobacco ScreeningProMedica Health SystemStart: 50-31-3696Dlmnt BMI ScreeningAdult BMI ScreeningProMedica Health SystemStart: 97-83-5088Amucujj ScreeningTobacco ScreeningProMedica Health SystemStart: 49-26-7158Ialog BMI ScreeningAdult BMI ScreeningProMedica Health SystemStart: 57-22-6937Hvlxdyg ScreeningTobacco ScreeningProMedica Health SystemStart: 87-09-0437Ngxdd BMI ScreeningAdult BMI ScreeningProMedica Health SystemStart: 65-37-2734Kozahol ScreeningTobacco ScreeningProMedica Health SystemStart: 73-97-8199Vooyf BMI ScreeningAdult BMI ScreeningProMedica Health SystemStart: 44-50-9581Npvkabj ScreeningTobacco ScreeningProMedica Health SystemStart: 05-67-6912Qmwmp BMI ScreeningAdult BMI ScreeningProMedica Health SystemStart: 81-74-3077Ikopx BMI ScreeningAdult BMI ScreeningProMedica Health SystemStart: 73-12-6344Umlvzfa ScreeningTobacco ScreeningProMedica Health SystemStart: 46-37-5916Kruef BMI ScreeningAdult BMI ScreeningProMedica Health SystemStart: 60-87-1592Qxdbqnu ScreeningTobacco ScreeningProMedica Health SystemStart: 85-28-1737Ennio BMI ScreeningAdult BMI ScreeningProMedica Health SystemStart: 84-02-5684Cbgqmpc ScreeningTobacco ScreeningProMedica Health SystemStart: 40-81-7989Orhvy BMI Follow Up PlanAdult BMI Follow Up PlanProMedica Health SystemStart: 69-06-2935Jodgm BMI ScreeningAdult BMI ScreeningProMedica Health SystemStart: 58-62-1845Mopbgvm ScreeningTobacco ScreeningAvita Health Systemca Health System Start: 18-09-7531Mklte BMI ScreeningAdult BMI ScreeningProMedica Health System Start: 01-67-7538Acsoope ScreeningTobacco ScreeningAvita Health Systemca Health SystemStart: 53-69-4847Wijpo BMI ScreeningAdult BMI ScreeningProWestern Reserve Hospitalca Health SystemStart: 44-57-2285Vviwhzy ScreeningTobacco ScreeningProMedica Health SystemStart: 93-93-9829Cmpqo BMI ScreeningAdult BMI ScreeningProWestern Reserve Hospitalca Health SystemStart: 31-79-9564Kkohhhx ScreeningTobacco ScreeningProMedica Health SystemStart: 19-32-0197Nbjqh BMI ScreeningAdult BMI ScreeningProWestern Reserve Hospitalca Health SystemStart: 35-22-6600Yenlhia ScreeningTobacco ScreeningProMedica Health SystemStart: 98-75-6815Ilxwo BMI ScreeningAdult BMI ScreeningProMedica Health SystemStart: 20-44-7792Rhdtvew ScreeningTobacco ScreeningAvita Health Systemca Health SystemStart: 30-56-6462Oedmc BMI ScreeningAdult BMI ScreeningProWestern Reserve Hospitalca Health SystemStart: 84-93-0242Krhevgr ScreeningTobacco ScreeningProMedica Health SystemStart: 01-25-0818Sbjoima ScreeningTobacco ScreeningProMedica Health SystemStart: 03-01-2025 End: 16-38-9128Stkjoug encounter ktrgkcyuh96/05/2026 10:00 AM EST Office Visit [facility] [address] [place] [address] Alice Michel MD [address] [place] [address] [facility] [place] EndocrinologyStart: 02-15-2025 End: 29-60-6416Jyegnsh encounter wljbnuukx34/22/2025 9:00 AM EST Office Visit [facility] [address] [place] [phone] Nigel Kincaid MD [address] [place] [address] [facility] CardiologyStart: 19-86-6631Cdcwt BMI ScreeningAdult BMI ScreeningFormerly [facility] Centertart: 12-22-2024 End: 22-88-1275Tkzindv encounter nmdqytgux07/28/2025 2:15 PM EDT Routine [facility]ne[facility] [place] [phone] Kassy Duncan MD [address] [place] [address] [facility] Obstetrics/GynecologyStart: 12-18-2024 End: 93-06-9574Uwegyjn encounter smvcoslon91/24/2025 1:30 PM EDT Appointment [facility] - Ultrasound [address] [place] [address] Sanjuanita Nguyen, VICTORIAN LITERATURE PROFESSOR-UX DESIGNER [address] [place] [address] [facility] - UltrasoundStart: 12-18-2024 End: 64-18-6168Pirvnei encounter qfehcvxhw56/24/2025 10:45 AM EDT Routine [facility] [address] [place] [address] Sanjuanita Nguyen, VICTORIAN LITERATURE PROFESSOR-UX DESIGNER [address] [place] [address] [facility] Obstetrics/GynecologyStart: 12-11-2024 End: 95-11-4535XQ for limitedUltrasound transabdominal follow up per fetus Imaging Routine care, third trimester Uterine size- date discrepancy in third trimester Expected: 12/11/2024, Expires: 12/11/2025 [facility] Work Phone: Comment on above:Expected: 12/11/2024, Expires: 12/11/2025Start: 12-11-2024 End: 01-85-7737Dmlfyet encounter /17/2025 11:30 AM EDT Routine [facility]cology [facility] [place] [address] Sanjuanita Nguyen, VICTORIAN LITERATURE PROFESSOR-UX DESIGNER [address] [place], [place] [id number] [facility] Obstetrics/GynecologyStart: 12-10-2024 End: 56-16-6973Frtojjv encounter zowlfwypc57/16/2025 1:00 PM EDT Appointment [facility] [address] [place] [phone] Emmett Wilkinson MD [address] [place] [address] [facility] CardiovascularStart: 12-03-2024 End: 74-83-2375Aapcpal encounter tndlhvgit55/09/2025 2:15 PM EDT Routine [facility]Gynecology [facility] [place] [address] Sanjuanita Nguyen, VICTORIAN LITERATURE PROFESSOR-UX DESIGNER [address] [place] [address] [facility] Obstetrics/GynecologyStart: 11-27-2024 End: 13-99-6111Sxwwiii encounter procedureProSt. Mary'S Medical Center CardiovascularStart: 11-19-2024 End: 10-02-7717Zjqjxua encounter eauimylrx37/25/2025 2:30 PM EDT Routine [facility] [address] [place] [address] [facility] Ob[facility]etrics/Gynecology Start: 11-10-2024 End: 26-37-7683aufydrqzwj20/16/2025 2:30 PM EDT Infusion Jessy L Angelito [facility] - Medical Oncology [address] [place] [phone] Jessy Zhong Angelito [facility] - Medical OncologyStart: 11-09-2024 End: 50-82-3502Mlnd complete W/O contrastEcho complete W/O contrast Echocardiography Routine Vasovagal syncope Recurrent syncope Expected: , Expires: 11/09/2025ProSumma Health SystemComment on above:Expected: 11/09/2024, Expires: 11/09/2025Start: 11-09-2024 End: 85-56-9773Gjrzss monitor studyHolter monitor 3-5 days Cardiac Services Routine Vasovagal syncope Recurrent syncope Expected: 11/09/2024, Expires: 11/09/2025[facility] Work Phone: Comment on above:Expected: 11/09/2024, Expires: 11/09/2025Start: 11-09-2024 End: 87-90-3273Tofnfsq encounter nzazbhpdu22/15/2025 9:00 AM EDT Office Visit [facility] [address] [place] [address] Emmett Wilkinson MD [address] [place] [address] [facility] CardiologyStart: 11-06-2024 End: 32-37-0001Gymaqdt encounter jfgzcwvyt51/12/2025 10:45 AM EDT Routine [facility]Gy[facility] [address] [place] [address] Sanjuanita Nguyen, VICTORIAN LITERATURE PROFESSOR-UX DESIGNER [address] [place] [address] [facility] Obstetrics/GynecologyStart: 11-03-2024 End: 03-09-1265gexjukhwik04/09/2025 2:30 PM EDT Infusion Jessy Zhong Angelito [facility] - Medical Oncology [address] [place] [phone] Jessy Trevin Angelito [facility] - Medical OncologyStart: 11-02-2024 End: 02-24-2914Ecsrwot profile includes TSH BV8Bwzxrpb profile includes TSH FT4 Lab Routine Subclinical hypothyroidism Expected: 11/02/2024 (Approximate), Expires: 09/21/2025[facility] SystemComment on above:Expected: 11/02/2024 (Approximate), Expires: 09/21/2025Start: 11-02-2024 End: 18-96-6038lzjlbwokxo02/08/2025 10:00 AM EDT Lab [facility] - Lab [address] [place] [address] [phone] Memorial Hospital - LabStart: 10-31-2024 End: 86-96-7463MUJ with ReflexTSH with Reflex Lab Routine Subclinical hypothyroidism , unspecified gestational age Expected: 10/31/2024 (Approximate), Expires: 09/30/2025[facility] Work Phone: comment on above:Expected: 10/31/2024 (Approximate), Expires: 09/30/2025Start: 10-27-2024 End: 75-89-9404trfilbhemd94/02/2025 1:00 PM EDT Infusion Jessy L Angelito [facility] - Medical Oncology [address] [place] [phone] Jessy Trevin Angelito [facility] Medical OncologyStart: 74-95-5662PAYMO-19 Vaccine ( season)COVID-19 Vaccine ( season)[facility] SystemStart: 86-60-2825Mekxuroev vaccinationInfluenza VaccineProSumma Health SystemStart: 10-23-2024 End: 66-76-2495wqhyqkjrcd32/29/2025 1:00 PM EDT Infusion Jessy Zhong Whitley [facility] Medical Oncology [address] [place] [address] Jessy Eaton [facility] - Medical OncologyStart: 10-23-2024 End: 64-99-8709Optlefn encounter xyqmxzthi85/29/2025 10:00 AM EDT Routine [facility] [address] [address] Sanjuanita Nguyen, VICTORIAN LITERATURE PROFESSOR-UX DESIGNER [address] [place], [place] [address] [facility] Obstetrics/GynecologyStart: 10-22-2024 End: 15-86-2346BZM W Auto Differential panel - BloodCBC auto differential Lab Routine Iron deficiency anemia secondary to inadequate dietary iron intake Expected: 10/22/2024 (Approximate), Expires: 09/21/2025[facility] Work Phone: Comment on above:Expected: 10/22/2024 (Approximate), Expires: 09/21/2025Start: 10-22-2024 End: 94-89-0886Gindhqti [Mass/volume] in Serum or PlasmaFerritin Lab Routine Iron deficiency anemia secondary to inadequate dietary iron intake Expected: (Approximate), Expires: 09/21/2025ProSumma Health SystemComment on above:Expected: 10/22/2024 (Approximate), Expires: 09/21/2025Start: 10-22-2024 End: 58-33-7451Uthx and TIBCIron and TIBC Lab Routine Iron deficiency anemia secondary to inadequate dietary iron intake Expected: 10/22/2024 (Approximate), Expires: 09/21/2025ProSum[facility] Health SystemComment on above:Expected: 10/22/2024 (Approximate), Expires: 09/21/2025Start: 10-22-2024 End: 04-11-4278sdhlmeokzd82/28/2025 10:20 AM EDT Lab [facility] - Lab [address] [place] [address] [phone] [facility] - LabStart: 10-20-2024 End: 62-34-9733zsmpekbgis21/26/2025 1:00 PM EDT Infusion Jessy Eaton [facility] - Medical Oncology [address] [place] [phone] Jessy Eaton [facility] Medical OncologyStart: 10-16-2024 End: 21-38-0418lyawdrmwlg37/22/2025 2:00 PM EDT Infusion Jessy Eaton [facility] Medical Oncology [address] [place] [address] Jessy Eaton [facility] Medical OncologyStart: 10-15-2024 End: 55-52-3068Qahyfne encounter kdeqkniyo58/21/2025 11:00 AM EDT Office Visit [facility] [address] [place] [phone] Emmett Wilkinson MD [address] [place], [place] [phone] Aletha Forrester MD [address] [place], [place] [id number] [facility] Start: 10-13-2024 End: 55-92-3593rcppvyhyym85/19/2025 1:30 PM EDT Infusion Jessy Ojedan [facility] - Medical Oncology [address] [place] [address] Jessy Trevin Angelito [facility] Medical OncologyStart: 10-09-2024 End: 84-32-3472Uagoqss encounter ufkwocccd25/15/2025 9:45 AM EDT Routine [facility] [address] [place] [address] [facility] Start: 09-15-2024 End: 51-09-2859Aieloqw encounter ndhthokri52/22/2025 3:00 PM EDT Office Visit [facility] [address] [place], [place] [address] [address] Emmett Wilkinson MD [address] [place] [address] [facility] CardiologyStart: 09-14-2024 End: 76-19-3505Cgfdmjg encounter siwnaufwl75/21/2025 1:45 PM EDT Routine [facility] [address] [facility] [address] Sanjuanita Nguyen, VICTORIAN LITERATURE PROFESSOR-[facility] [address] [place], [place] [phone] [facility] Obstetrics/GynecologyStart: 09-08-2024 End: 02-36-5851IW Brain WO contrastMR brain without contrast Imaging Routine Migraine with aura and without status migrainosus, not intractable Recurrent syncope Expected: 09/08/2024, Expires: 09/08/2025[facility] Work Phone: Comment on above:Expected: 09/08/2024, Expires: 09/08/2025Start: 09-08-2024 End: 13-10-3474Vacqbdw encounter guqooawol24/15/2025 10:00 AM EDT Office Visit [facility] [place] [address] Javier Putnam MD [address] [place] [address] [address], [address] [place] [address] [facility]-20-2024 End: 00-04-1456Mxhqnxqjkfot consultation with inrchha5308/20/2024 2:30 PM EDT Telemedicine [facility] [place] [address] [facility] [address] [place] [phone] Alessandro Lawler MD [address] [place] [address] [facility] [place]: 08-20-2024 End: 89-55-8047Yvbdnua encounter ayfbutwet78/26/2025 1:00 PM EDT Appointment [facility] [place] [address] [place] [address] [facility] 08-12-2024 End: 56-55-7677Ievjeft encounter usazbdsny03/18/2025 2:15 PM EDT Routine [facility] [address] [facility] [address] Sanjuanita Nguyen, VICTORIAN LITERATURE PROFESSOR-UX DESIGNER [address] [place], [place] [phone] [facility] Obstetrics/GynecologyStart: 07-15-2024 End: 33-70-2105OT MFM with or without consultUS MFM with or without consult Imaging Routine Second trimester Hx of migraine during Visual disturbances Syncope and collapse Expected: 07/15/2024, Expires: 07/15/2025[facility] Work Phone: Comment on above:Expected: 07/15/2024, Expires: 07/15/2025Start: 07-15-2024 End: 90-91-6316Fytylcs encounter mtgdxnimr25/21/2025 1:00 PM EDT Routine [facility] [place] [address] [place] [phone] [facility] - CyldeStart: 06-17-2024 End: 37-42-1651Anpckqj encounter xwhykfpsc59/23/2025 1:00 PM EDT Routine [facility] [place] [address] [place] [address] [phone] [facility] - CyldeStart: 06-11-2024 End: 44-28-3560Ovkipds encounter lebudaeio89/17/2025 1:00 PM EDT Procedure visit [facility] [address] [place] [address] Delicia Johnston, VICTORIAN LITERATURE PROFESSOR-UX DESIGNER [address] [facility] , [address] [place], [place] [phone] [facility] Obstetrics/GynecologyStart: 05-28-2024 End: 00-10-3379Qdgrein encounter kukkumngc24/03/2025 1:30 PM EDT Appointment [facility] - Ultrasound [address] [place] [address] [phone] [facility] Hospital - UltrasoundStart: 05-20-2024 End: 28-88-0367Ijgzndhj report of Cervical or vaginal smear or scraping Cyto stain.thin prepPap Smear Pathology and Cytology Routine Cervical smear, as part of routine gynecological examination Expected: 05/20/2024 (Approximate), Expires: 05/20/2025[facility] Work Phone: Comment on above:Expected: 05/20/2024 (Approximate), Expires: 05/20/2025Start: 05-20-2024 End: 32-04-5539Qxbupefna Panel PCRVaginitis Panel PCR Microbiology Routine Acute vaginitis Expected: 05/20/2024 (Approximate), Expires: 05/20/2025[facility] SystemComment on above:Expected: 05/20/2024 (Approximate), Expires: 05/20/2025Start: 05-20-2024 End: 75-32-3977zjmcychoyu03/26/2025 1:30 PM EDT Initial [facility] [place] [address] [place] [address] [facility] CyldeStart: 05-11-2024 End: 59-14-1494CX transvaginal for pregnancyUltrasound less than 14 weeks with transvaginal Imaging Routine care, first trimester Expected: 05/11/2024, Expires: 05/11/2025[facility] Work Phone: Comment on above:Expected: 05/11/2024, Expires: 05/11/2025Start: 05-08-2024 End: 91-23-7352Aztzxjh encounter kvlxbkiyv57/14/2025 9:30 AM EDT Appointment [facility] - Ultrasound [address] [place] [address] Sanjuanita Nguyen, VICTORIAN LITERATURE PROFESSOR-UX DESIGNER [address] [place] [address] [facility] - UltrasoundStart: 05-05-2024 End: 88-02-5747GV transvaginal for pregnancyUltrasound less than 14 weeks with transvaginal Imaging Routine First trimester pregnancyExpected: 05/05/2024, Expires: 05/05/2025[facility] Work Phone: Comment on above:Expected: 05/05/2024, Expires: 05/05/2025Start: 12-25-2023 End: 98-42-7139Idbrtia encounter gmewwjwnx52/30/2024 9:00 AM EDT Office Visit [facility] General Surgery [address] [place], [place] Sofía Boucher, VICTORIAN LITERATURE PROFESSOR-UX DESIGNER [address] [place] [address] [facility] General SurgeryStart: 12-12-2023 End: 31-03-2364Bujenuy encounter tnrbziusa83/17/2024 1:30 PM EDT Office Visit [facility] [address] [place] [address] Ramiro Hutnley, ATHLETICS TEACHER [address] [place] [address] ArrivedNOMS CI FMComment on above:ArrivedStart: 49-89-0617TKYTV-19 Vaccine ( season)COVID-19 Vaccine ( season)[facility] SystemStart: 05-64-3258Oqyyvgmix vaccinationNOWA HealthcareStart: 41-22-9324Fcpmd BMI ScreeningAdult BMI ScreeningProSumma Health SystemStart: 87-19-1033Jkpawumoj vaccinationFlu vaccine (Season Ended) [employer] Phone: start: 08-16-2020 End: 75-71-0897Ilffmkxhy [facility]Prem[facility] Start: 43-88-0049Olfgbjdli for malignant neoplasm of cervixFairfield Medical Center SystemStart: 71-92-3990KYfD,Tdap and Td Vaccines (4 - Tdap)DTaP,Tdap and Td Vaccines (4 - Tdap)[facility] SystemStart: 32-78-4646ZKhN/Tdap/Td vaccine (1 - Tdap)DTaP/Tdap/Td vaccine (1 - Tdap)[employer] Phone: start: 95-81-7224PTGXP-19 Vaccine (1)COVID-19 Vaccine (1)[employer] Phone: start: 21-32-6512ZNW screeningHIV [facility] HospitalZup[facility] Phone: start: 58-22-8320Luvmzxxaxa ScreeningDepression ScreeningFairfield Medical Center SystemStart: 76-82-6662Jzrfpeb ScreeningTobacco ScreeningFairfield Medical Center SystemStart: 53-32-1164XSN vaccine (1 - 2-dose series) HPV vaccine (1 - 2-dose series)[employer] Phone: start: 24-57-4286Fhkoatqdp vaccine (1 of 2 - 2-dose childhood series)Varicella vaccine (1 of 2 - 2-dose childhood series)[employer] Phone: start: 41-72-7700Repbvmnfg C screeningHepatitis C [facility] Work Phone: End: 35-71-5621VVW Single Marker Scrn, Maternal, SerumAFP Single Marker Scrn, Maternal, Serum Lab Routine Second trimester 1 Occurrences starting 07/15/2024 until 07/15/2025[facility] SystemSMATOOSComment on above:1 Occurrences starting 07/15/2024 until 07/15/2025 End: 78-53-7420Ytceddbu identified in Urine by CultureUrine Culture Microbiology Routine First trimester 1 Occurrences starting 05/05/2024 until 05/05/2025[facility] [employer] TechnologiesComment on above:1 Occurrences starting 05/05/2024 until 05/05/2025 End: 58-01-7940Axyoptf Study Non-ProMedicaCarrier Study Non-[facility] Lab Routine care, first trimester 1 Occurrences starting 06/18/2024 until 06/18/2025[facility] Work Phone: Comment on above:1 Occurrences starting 06/18/2024 until 06/18/2025 End: 13-81-2882WQA panel - Blood by Automated countCBC without diff Lab Routine First trimester 1 Occurrences starting 05/05/2024 until 05/05/2025 [facility] [employer] TechnologiesComment on above:1 Occurrences starting 05/05/2024 until 05/05/2025 End: 64-88-9522Ykrkshxru/Gonorrhoeae by PCR, FluidChlamydia/Gonorrhoeae by PCR, Fluid Microbiology Routine care, first trimester 1 Occurrences starting 05/20/2024 until 05/20/2025[facility] SystemAula 7 [facility] HospitalComment on above:1 Occurrences starting 05/20/2024 until 05/20/2025 End: 65-79-1427Xkqybqugzbg all L&D and recovery ordersDiscontinue all L&D and recovery orders OB Routine Once for 1 Occurrences starting 12/24/2024 until 12/24/2024[facility]Comment on above:Once for 1 Occurrences starting 12/24/2024 until 12/24/2024 End: 67-49-8452Ebgm Screen, UrineDrug Screen, Urine Lab Routine First trimester 1 Occurrences starting 05/05/2024 until 05/05/2025[facility] SystemComment on above:1 Occurrences starting 05/05/2024 until 05/05/2025 End: 91-05-5082QMLJTA Neurology Routine Migraine with aura and without status migrainosus, not intractable Migraine without aura and without status migrainosus, not intractable 1 Occurrences starting 09/08/2024 until 09/08/2025 [facility] SystemComment on above:1 Occurrences starting 09/08/2024 until 09/08/2025 End: 34-24-0974Pjunutoy [Mass/volume] in Serum or PlasmaFerritin Lab Routine related fatigue in second trimester 1 Occurrences starting 09/18/2024 until 09/18/2025[facility] SystemComment on above:1 Occurrences starting 09/18/2024 until 09/18/2025Ferritin [Mass/volume] in Serum or PlasmaFerritin Lab Routine related fatigue in second trimester 09/18/2024 1:43 PM EDT [facility] End: 45-94-3912SVW, Quantitative, PregnancyHCG, Quantitative, Lab Routine First trimester 1 Occurrences starting 05/05/2024 until 05/05/2025[facility] HospitalComment on above:1 Occurrences starting 05/05/2024 until 05/05/2025 End: 81-94-9807Dqmqnnawc panel, acuteHepatitis panel, acute Lab Routine First trimester 1 Occurrences starting 05/05/2024 until 05/05/2025[facility] HospitalComment on above:1 Occurrences starting 05/05/2024 until 05/05/2025 End: 24-58-6841Lobf risk HPV w/genoHigh risk HPV w/israel Lab Routine Cervical smear, as part of routine gynecological examination 1 Occurrences starting 05/20/2024 until 05/20/2025[facility] HospitalComment on above:1 Occurrences starting 05/20/2024 until 05/20/2025 End: 29-24-3465SWO 1&2 AB/AG Screen (P24 AG)HIV 1&2 AB/AG Screen (P24 AG) Lab Routine First trimester 1 Occurrences starting 05/05/2024 until 05/05/2025[facility] SystemComment on above:1 Occurrences starting 05/05/2024 until 05/05/2025 End: 11-09-2434Nlxeeq Therapy - Maintain SpO2: 90% or greater; *EQUITY SALES ASSISTANT Guidelines for O2: Yes; Document: \Nvesti.promed ica.org\epic\EPIC_Reference\Orders\Respiratory Care Guidelines\CPG Oxygen 2022.pdfOxygen Therapy - Maintain SpO2: 90% or greater; *EQUITY SALES ASSISTANT Guidelines for O2: Yes; Document: \Nvesti.ARYx Therapeuticsedica.org\epic\EPIC_Reference\Orders\Respiratory Care Guidelines\CPG Oxygen 2022.pdf Respiratory CareRoutine As Needed until discontinued starting 12/24/2024[employer] Work Phone: comment on above:As Needed until discontinued starting 12/24/2024Oxygen Therapy - Maintain SpO2: 95% or greater; *EQUITY SALES ASSISTANT Guidelines for O2: Yes; Document: \Nvesti.promedica.org\epic\EPIC_Reference\Orders\Respiratory Care Guidelines\CPG Oxygen 2022.pdfOxygen Therapy - Maintain SpO2: 95% or greater; *EQUITY SALES ASSISTANT Guidelines for O2: Yes; Document: \Nvesti.promed ica.org\epic\EPIC_Reference\Orders\Respiratory Care Guidelines\CPG Oxygen 3.pdf Respiratory CareRoutine As Needed until discontinued starting 12/24/2024[employer] Work Phone: Comment on above:As Needed until discontinued starting 12/24/2024Oxygen Therapy - Maintain SpO2: 95% or greater; *EQUITY SALES ASSISTANT Guidelines for O2: Yes; Document: \[email or web address].promedica.org\epic\EPIC_Reference\Orders\Respiratory Care Guidelines\CPG Oxygen 2022.pdfOxygen Therapy - Maintain SpO2: 95% or greater; *EQUITY SALES ASSISTANT Guidelines for O2: Yes; Document: \Nvesti.ARYx Therapeuticsed ica.org\epic\EPIC_Reference\Orders\Respiratory Care Guidelines\CPG Oxygen 2022.pdf Respiratory CareRoutine As Needed until discontinued starting 12/24/2024[facility] HospitalSlanissueComment on above:As Needed until discontinued starting 12/24/2024 End: 13-54-6307Uifryio creat ratioProtein creat ratio Lab Routine care, first trimester headache in first trimester Visual disturbance 1 Occurrences starting 06/17/2024 until 06/17/2025[employer] Work Phone: Comment on above:1 Occurrences starting 06/17/2024 until 06/17/2025 End: 05-63-6244Iogftvj IGG immune statusRubella IGG immune status Lab Routine First trimester 1 Occurrences starting 05/05/2024 until 05/05/2025 [facility] SystemComment on above:1 Occurrences starting 05/05/2024 until 05/05/2025Strep B screenStrep B screen Microbiology Routine care, third trimester 12/03/2024 3:07 PM [employer] Work Phone: End: 27-21-6204Sokcumrq Total(Unknown Syphilis Status)Syphilis Total(Unknown Syphilis Status) Lab Routine First trimester 1 Occurrences starting 05/05/2024 until 05/05/2025ProSlanissueComment on above:1 Occurrences starting 05/05/2024 until 05/05/2025 End: 14-02-4849Deprrzs profile includes TSH MV7Ncnyuxl profile includes TSH FT4 Lab Routine related fatigue in second trimester 1 Occurrences starting 09/18/2024 until 09/18/2025[employer] Work Phone: Comment on above:1 Occurrences starting 09/18/2024 until 09/18/2025Thyroid profile includes TSH YQ6Ipznjpj profile includes TSH FT4 Lab Routine related fatigue in second trimester 09/18/2024 1:43 PM [employer] End: 46-00-0466Omghmbh profile includes TSH OS2Uwbsefr profile includes TSH FT4 Lab Routine Subclinical hypothyroidism every 4 weeks for 6 Occurrences starting 09/29/2024 until 09/29/2025, 1 completedPh[employer] Work Phone: comment on above:every 4 weeks for 6 Occurrences starting 09/29/2024 until 09/29/2025, 1 completed End: 27-92-4777Feuzntzro pallidum IgG+IgM Ab [Presence] in Serum by Immunoassay Syphilis Total(Unknown Syphilis Status) Lab Routine care, second trimester 1 Occurrences starting 09/18/2024 until 09/18/2025[facility] [place] SystemComment on above:1 Occurrences starting 09/18/2024 until 09/18/2025 Treponema pallidum IgG+IgM Ab [Presence] in Serum by ImmunoassaySyphilis Total(Unknown Syphilis Status) Lab Routine care, second trimester 09/18/2024 1:43PM [employer] End: 84-04-8900Fghj and screenType and screen Blood Bank Routine First trimester 1 Occurrences starting 05/05/2024 until 05/05/2025[facility] HospitalComment on above:1 Occurrences starting 05/05/2024 until 05/05/2025 End: 66-43-7511BhlfjmskkqWybvkrkaap Lab Routine First trimester 1 Occurrences starting 05/05/2024 until 05/05/2025[facility] SystemAula 7 [facility] HospitalComment on above:1 Occurrences starting 05/05/2024 until 05/05/2025Urogenital Ureaplasma and Mycoplasma Species by PCR: UrineUrogenital Ureaplasma and Mycoplasma Species by PCR: Urine Lab Routine Screening for STD (sexually transmitted disease) 07/29/2024 2:26 PM [employer] Work Phone: Urogenital Ureaplasma and Mycoplasma Species by PCR: UrineUrogenital Ureaplasma and Mycoplasma Species by PCR: Urine Lab Routine 28 weeks gestation of 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 10/09/2024 10:21 AM [employer] Work Phone: Urogenital Ureaplasma and Mycoplasma Species by PCR: UrineUrogenital Ureaplasma and Mycoplasma Species by PCR: Urine Lab Routine 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 12/03/2024 4:13 PM [employer] [facility] End: 11-44-6305Djpfgbnfd zoster antibody, IgGVaricella zoster antibody, IgG Lab Routine First trimester 1 Occurrences starting 05/05/2024 until 05/05/2025[facility] HospitalComment on above:1 Occurrences starting 05/05/2024 until 05/05/2025 End: 36-75-8893Ggbexaw D 25 hydroxyVitamin D 25 hydroxy Lab Routine related fatigue in second trimester 1 Occurrences starting 09/18/2024 until 09/18/2025[facility] System[facility] HospitalComment on above:1 Occurrences starting 09/18/2024 until 09/18/2025Vitamin D 25 hydroxyVitamin D 25 hydroxy Lab Routine related fatigue in second trimester 09/18/2024 1:43 PM [facility] Immunizations Immunization DateImmunizationNotesCare ZvvlnhpbGzjpvuvr68-94-6698whahackhme, tetanus toxoids and acellular pertussis vaccine, unspecified formulation Delicia Egan VICTORIAN LITERATURE PROFESSOR-CNM Work Phone: [facility]10-30-2025measles, mumps and rubella virus vaccineSteplali Palafoxen VICTORIAN LITERATURE PROFESSOR-CNM Work Phone: [facility] HospitalTlkkyi48-03-9612evmwodzju zoster immune globulinSteplali Egan VICTORIAN LITERATURE PROFESSOR-CNM Work Phone: [facility]10-09-2025RSV, bivalent, protein subunit RSVpreF, diluent reconstituted, 0.5 mL, PFLisa Gilmoreotzer VICTORIAN LITERATURE PROFESSOR-UX DESIGNER Work Phone: [facility] HospitalNmflbz95-00-0784Aqrmqszpktsz, In Clinic,; Translations: [Drug or medicament (substance)]Sanjuanita Nguyen VICTORIAN LITERATURE PROFESSOR-UX DESIGNER Work Phone: [facility] Work Phone: [phone]xkp, mumps and rubella virus vaccineLisa Mandootzer VICTORIAN LITERATURE PROFESSOR-UX DESIGNER Work Phone: [facility]10-31-2019tetanus toxoid, reduced diphtheria toxoid, and acellular pertussis vaccine, adsorbedLisa Manodotzer VICTORIAN LITERATURE PROFESSOR-UX DESIGNER Work Phone: [facility]03-14-2008human papilloma virus vaccine, quadrivalentLisa Krotzer VICTORIAN LITERATURE PROFESSOR-UX DESIGNER Work Phone: [facility] HospitalVphjyn04-02-7846uuynmnsky B vaccine, unspecified formulationLisa Jadazer VICTORIAN LITERATURE PROFESSOR-UX DESIGNER Work Phone: [facility] HospitalAubrqd16-90-6802BSS-Frkheetyrlh influenzae type b conjugate vaccineLisa Wendy VICTORIAN LITERATURE PROFESSOR-UX DESIGNER Work Phone: [facility]08-27-1996measles, mumps and rubella virus vaccineLisa Mandootzer VICTORIAN LITERATURE PROFESSOR-UX DESIGNER Work Phone: [facility] HospitalYxqoab61-70-0247rlzschyzz poliovirus vaccine, live, oralLisa Krotzer VICTORIAN LITERATURE PROFESSOR-UX DESIGNER Work Phone: [facility] HospitalQhhept31-08-6143DUX-Rxidigspytb influenzae type b conjugate vaccineLisa Krotzer VICTORIAN LITERATURE PROFESSOR-UX DESIGNER Work Phone: [facility] HospitalSlikdp62-92-7656mhnpfmhjd B vaccine, unspecified formulationLisa Krotzer VICTORIAN LITERATURE PROFESSOR-UX DESIGNER Work Phone: [facility] HospitalQcomms37-25-4149kwayrogpq poliovirus vaccine, live, oralLisa Krotzer VICTORIAN LITERATURE PROFESSOR-UX DESIGNER Work Phone: [facility] HospitalJtnwlo68-14-3576NJV-Tshfxaejest influenzae type b conjugate vaccineLisa Krotzer VICTORIAN LITERATURE PROFESSOR-UX DESIGNER Work Phone: [facility] HospitalEcoajz00-40-7601oiplegdgk B vaccine, unspecified formulationLisa Krotzer VICTORIAN LITERATURE PROFESSOR-UX DESIGNER Work Phone: [facility] HospitalGvsqxc29-58-6875hahlqqilt poliovirus vaccine, live, oralLisa Krotzer VICTORIAN LITERATURE PROFESSOR-UX DESIGNER Work Phone: [facility] HospitalEozdpv94-64-1200mktjafctp B vaccine, unspecified formulationLisa Krotzer VICTORIAN LITERATURE PROFESSOR-UX DESIGNER Work Phone: [facility] Payers DatePayer CategoryPayerPolicy [id number]-pay2024Medicaid (Managed Care)[employer] Member Subscriber Plan / Payer (Effective 2023-Present) Name: Delicia Shaw Relation to Subscriber: Self Name: Delicia Shaw Payer ID: Not on file Group ID: Not on file Type: Not on file Address: [address] [id number] [id number] 2023MedicaidMEDICAID [place] [id number] 2023Medicaid HMO [id number] Health Insurance [id number] Health [id number] 1.2.840.477644.1.13.239.2.7.3.226[id number] 2.0.1.316555.3.57[id number] 2.840.1.100600.3.57[id number] 2.0.1.478419.3.57[id number] 2.160.1.698789.3.57[id number] 2.160.1.329454.3.57[id number] 2.160.1.227009.3.57[id number] 2.0.1.812638.3.57[id number] 2.16840.1.563824.3.57[id number] 2.16840.1.660962.3.57[id number] 2.16840.1.985367.3.57[id number] 2.16840.1.801532.3.57[id number] 2.840.1.392139.3.57[id number] 2.840.1.414925.3.57[id number] 2.840.1.239467.3.57[id number] 2.840.1.522484.3.57[id number] 2.840.1.477124.3.57[id number] 2.840.1.554161.3.57[id number] 2.840.1.038612.3.57[id number] 2.840.1.821403.3.57[id number] 2.840.1.596140.3.57[id number] 2.840.1.165551.3.57[id number] 2.16.840.1.642989.3.57[id number] 2.16840.1.683017.3.57[id number] 2.16840.1.087200.3.579.2.307624-22-2038Wxcpvbg848526501 2.16840.1.301796.3.579.2.525746-50-6419Npjthni773085877 2.16840.1.875894.3.579.2.266925-14-2537Rxkhpqm329823259 2.840.1.928771.3.579.2.[id number] 2.840.1.424659.3.579.2.305146-53-9166Kvnoykq030644007 2.840.1.063071.3.579.2.609624-54-7307Dhdrcpr133375244 2.840.1.216176.3.579.2.216594-27-9505Ntqkegb386995391 2.840.1.680454.3.579.2.393130-89-0162Jyllrjd937315048 2.840.1.817788.3.57[id number] 2.840.1.535056.3.57[id number] 2.840.1.888491.3.57[id number] 2.16840.1.601183.3.57[id number] 2.840.1.570643.3.57[id number] 2.840.1.689027.3.57[id number] 2.16840.1.381881.3.57[id number] 2.840.1.479950.3.57[id number] 2.840.1.264583.3.57[id number] 2.0.1.939067.3.57[id number] 2.0.1.584940.3.57[id number] 2..1.214018.3.57[id number] 2.0.1.453941.3.57[id number] 2.840.1.682342.3.57[id number] 2.0.1.173203.3.57[id number] 2.840.1.060069.3.579.2.1286Department of Defense ( and others) [facility] Fed-[id number] 2.840.1.010947.3.579.2.531 Social History DateTypeDetailFacilityStart: 35-61-6622Rujntmg smoking status NHISFormer smoker [employer] Phone: start: 06-08-2020 End: 22-09-4559Jlzxssj use and exposureNever usedAshtabula County Medical CenterRootstock Software Work Phone: start: 67-82-2032Idyiodn intakeCurrent drinker of alcohol (finding)[employer] Work Phone: start: 43-45-5782Motwpey CommentoccasionalAshtabula County Medical CenterRootstock Software Work Phone: start: 91-77-4117Tuq Assigned At BirthNot on fileAshtabula County Medical CenterRootstock Software Work Phone: start: 08-28-2023 End: 12-58-6404Qljfesv smoking status NHISNever smoked tobaccoNOMS Healthcare Start: 61-87-0003Jnrjpib use and exposureUser of smokeless tobaccoNOMS HealthcareStart: 12-12-2023 End: 59-05-4362Mrfxzag of Social functionNOMS HealthcareStart: 12-12-2023 End: 43-69-1051Yxhkywa use panelNOMS HealthcareStart: 02-72-2794Vmi Assigned At BirthSamaritan Hospitaltart: 07-23-2021 End: 96-49-4114Iqzgncpye beverage intakeEx-drinker (finding)[facility] SystemChildcareUnknowStoneCrest Medical Center Health SystemStart: 09-42-7429YhhAbwydq (finding)[facility] SystemStart: 77-53-0058Ditmhx identityIdentifies as female gender (finding)[facility] SystemStart: 02-55-6360Uqzoeb orientationChoose not to discloseProHuntsville Hospital System Health SystemStart: 04-08-2024 PregnancyProHuntsville Hospital System Health SystemHow often do you have a drink containing alcohol?NeverProMedica Health SystemHow hard is it for you to pay for the very basics like food, housing, medical care, and heatingNot very hardProHuntsville Hospital System Health SystemNEGATED: Highlighted rowStart: NINFHistory of tobacco usePassive smokerProSumma Health System Functional Status KtfyXumpajllvxSftwuqGiyhctuo15-43-9131Rhhlh score [AUDIT-C]0 12/31/2024 3:55 PM EST Fozia Briscoe LPCarilion [facility]10-17-2025Total score [AUDIT-C]0 12/11/2024 11:16 AM EDT Larissa Fallon, [facility] Clinical Notes 04-02-2022 to 12-31-2024 Note Date & [id number] Miscellaneous Notes* Telephone Encounter - Shani Millan - 12/31/2024 4:56 PM EST Contract: [address] Hahn needs orders to get imaging on area to determine if she has hernia * Telephone Encounter - Shani Millan - 12/31/2024 4:56 PM EST Contract: 129 Called Tiffany Lee and relayed info for patient documented in [facility] Telephone encounter Note* Telephone Encounter - Shani Millan - 12/31/2024 4:56 PM EST Contract: [address] Hahn needs orders to get imaging on area to determine if she has hernia [facility]11-06-20[facility] Telephone encounter Note* Telephone Encounter - Shani Millan - 12/31/2024 4:56 PM EST Contract: 129 Called Tiffany Lee and relayed info for patient [facility]11-06-2025 History of Present illness Narrative* Jon Hahn DO - 12/31/2024 3:00 PM EST Patient [...] that she is going to go to [facility] as that is where Dr. Segura works, and he did perform her surgery. We discussed that there is a physician available at [facility] as well. Patient feels more comfortable going to [place] as she lives there and that is closest to her home. documented in this encounterC[facility]11-02-2025 Plan of care note * Plan of Care - Sabrina Lomeli RN - 12/27/2024 1:37 PM EST Problem: Pain Goal: Patient goal is pain score less than 4, able to rest, and participant in treatment plan as appropriate Description: INTERVENTIONS: 1. Encourage patient or legal signs and displays sales representative to report early pain and [...] per policy 9. Teach patient or legal signs and displays sales representative interventions for comforting Outcome: Completed [...] at the bedside 7. Instruct patient/ patient signs and displays sales representative about use of safety devices 8. Include patient/ patient signs and displays sales representative in decisions related to safety [...] hygiene technique. 7. Identify and instruct patient/patient signs and displays sales representative in use of appropriate isolation precautionsfor identified infection/symptoms. 8. Provide and discuss with patient/patient signs and displays sales representative on educational MDRO sheet. 9. Encourage and monitor nutritional status daily and consult supervisor of instruction if indicated. 10. Implement neutropenic guidelines as needed. Outcome: Completed Note: Evaluation of progress towards goal: Patient afebrile at this time, patient VS WNL. Pt assessed and monitored for signs and symptoms of infection, lab and diagnostic results monitored as needed, administer medications as needed. Hand hygiene completed. Continue to monitor. Problem: Knowledge Deficit Goal: Patient/patient signs and displays sales representative demonstrates understanding of disease process, [...] supplement as ordered 13. Collaborate with clinical supervisor of instruction 14. Include patient/ patient's signs and displays sales representative in decisions related to nutrition [...] FUNDUS REMAINED FIRM AND MIDLINE Additional Comments: [facility]11-02-[facility] Miscellaneous Notes* Plan of Care - Sabrina Lomeli RN - 12/27/2024 1:37 PM EST Problem: Pain Goal: Patient goal is pain score less than 4, able to rest, and participant in treatment plan as appropriate Description: INTERVENTIONS: 1. Encourage patient or legal signs and displays sales representative to report early pain and [...] per policy 9. Teach patient or legal signs and displays sales representative interventions for comforting Outcome: Completed [...] at the bedside 7. Instruct patient/ patient signs and displays sales representative about use of safety devices 8. Include patient/ patient signs and displays sales representative in decisions related to safety [...] hygiene technique. 7. Identify and instruct patient/patient signs and displays sales representative in use of appropriate isolation precautionsfor identified infection/symptoms. 8. Provide and discuss with patient/patient signs and displays sales representative on educational MDRO sheet. 9. Encourage and monitor nutritional status daily and consult supervisor of instruction if indicated. 10. Implement neutropenic guidelines as needed. Outcome: Completed Note: Evaluation of progress towards goal: Patient afebrile at this time, patient VS WNL. Pt assessed and monitored for signs and symptoms of infection, lab and diagnostic results monitored as needed, administer medications as needed. Hand hygiene completed. Continue to monitor. Problem: Knowledge Deficit Goal: Patient/patient signs and displays sales representative demonstrates understanding of disease process, [...] supplement as ordered 13. Collaborate with clinical supervisor of instruction 14. Include patient/ patient's signs and displays sales representative in decisions related to nutrition [...] Description: INTERVENTIONS: 1. Encourage patient or legal signs and displays sales representative to report early pain and [...] per policy 9. Teach patient or legal signs and displays sales representative interventions for comforting Outcome: Progressing [...] at the bedside 7. Instruct patient/ patient signs and displays sales representative about use of safety devices 8. Include patient/ patient signs and displays sales representative in decisions related to safety [...] hygiene technique. 7. Identify and instruct patient/patient signs and displays sales representative in use of appropriate isolation precautionsfor identified infection/symptoms. 8. Provide and discuss with patient/patient signs and displays sales representative on educational MDRO sheet. 9. Encourage and monitor nutritional status daily and consult supervisor of instruction if indicated. 10. Implement neutropenic guidelines as needed. Outcome: Progressing Note: Evaluation of progress towards goal: Patient afebrile at this time, patient VS WNL. Pt assessed and monitored for signs and symptoms of infection, lab and diagnostic results monitored as needed, administer medications as needed. Hand hygiene completed. Continue to monitor. Problem: Knowledge Deficit Goal: Patient/patient signs and displays sales representative demonstrates understanding of disease process, [...] supplement as ordered 13. Collaborate with clinical supervisor of instruction 14. Include patient/ patient's signs and displays sales representative in decisions related to nutrition [...] Description: INTERVENTIONS: 1. Encourage patient or legal signs and displays sales representative to report early pain and [...] per policy 9. Teach patient or legal signs and displays sales representative interventions for comforting Outcome: Progressing [...] at the bedside 7. Instruct patient/ patient signs and displays sales representative about use of safety devices 8. Include patient/ patient signs and displays sales representative in decisions related to safety [...] hygiene technique. 7. Identify and instruct patient/patient signs and displays sales representative in use of appropriate isolation precautionsfor identified infection/symptoms. 8. Provide and discuss with patient/patient signs and displays sales representative on educational MDRO sheet. 9. Encourage and monitor nutritional status daily and consult supervisor of instruction if indicated. 10. Implement neutropenic guidelines as needed. Outcome: Progressing Note: Evaluation of progress towards goal: Patient afebrile at this time, patient VS WNL. Pt assessed and monitored for signs and symptoms of infection, lab and diagnostic results monitored as needed, administer medications as needed. Hand hygiene completed. Continue to monitor. Problem: Knowledge Deficit Goal: Patient/patient signs and displays sales representative demonstrates understanding of disease process, [...] supplement as ordered 13. Collaborate with clinical supervisor of instruction 14. Include patient/ patient's signs and displays sales representative in decisions related to nutrition [...] Description: INTERVENTIONS: 1. Encourage patient or legal signs and displays sales representative to report early pain and [...] per policy 9. Teach patient or legal signs and displays sales representative interventions for comforting Outcome: Progressing [...] at the bedside 7. Instruct patient/ patient signs and displays sales representative about use of safety devices 8. Include patient/ patient signs and displays sales representative in decisions related to safety [...] hygiene technique. 7. Identify and instruct patient/patient signs and displays sales representative in use of appropriate isolation precautionsfor identified infection/symptoms. 8. Provide and discuss with patient/patient signs and displays sales representative on educational MDRO sheet. 9. Encourage and monitor nutritional status daily and consult supervisor of instruction if indicated. 10. Implement neutropenic guidelines as needed. Outcome: Progressing Note: Evaluation of progress towards goal: Patient afebrile at this time, patient VS WNL. Pt assessed and monitored for signs and symptoms of infection, lab and diagnostic results monitored as needed, administer medications as needed. Hand hygiene completed. Continue to monitor. Problem: Knowledge Deficit Goal: Patient/patient signs and displays sales representative demonstrates understanding of disease process, [...] supplement as ordered 13. Collaborate with clinical supervisor of instruction 14. Include patient/ patient's signs and displays sales representative in decisions related to nutrition [...] Description: INTERVENTIONS: 1. Encourage patient or legal signs and displays sales representative to report early pain and [...] per policy 9. Teach patient or legal signs and displays sales representative interventions for comforting Outcome: Progressing [...] at the bedside 7. Instruct patient/ patient signs and displays sales representative about use of safety devices 8. Include patient/ patient signs and displays sales representative in decisions related to safety [...] hygiene technique. 7. Identify and instruct patient/patient signs and displays sales representative in use of appropriate isolation precautionsfor identified infection/symptoms. 8. Provide and discuss with patient/patient signs and displays sales representative on educational MDRO sheet. 9. Encourage and monitor nutritional status daily and consult supervisor of instruction if indicated. 10. Implement neutropenic guidelines as needed. Outcome: Progressing Note: Evaluation of progress towards goal: NO S/S OF INFECTION. EDUCATION ABOUT INCISIONAL CARE PROVIDED Problem: Knowledge Deficit Goal: Patient/patient signs and displays sales representative demonstrates understanding of disease process, [...] Description: INTERVENTIONS: 1. Encourage patient or legal signs and displays sales representative to report early pain and [...] per policy 9. Teach patient or legal signs and displays sales representative interventions for comforting Outcome: Progressing [...] at the bedside 7. Instruct patient/ patient signs and displays sales representative about use of safety devices 8. Include patient/ patient signs and displays sales representative in decisions related to safety [...] hygiene technique. 7. Identify and instruct patient/patient signs and displays sales representative in use of appropriate isolation precautionsfor identified infection/symptoms. 8. Provide and discuss with patient/patient signs and displays sales representative on educational MDRO sheet. 9. Encourage and monitor nutritional status daily and consult supervisor of instruction if indicated. 10. Implement neutropenic guidelines as needed. Outcome: Progressing Note: Evaluation of progress towards goal: NO S/S OF INFECTION NOTED. GOOD HAND HYGIENE MAINTAINED Problem: Knowledge Deficit Goal: Patient/patient signs and displays sales representative demonstrates understanding of disease process, [...] Description: INTERVENTIONS: 1. Encourage patient or legal signs and displays sales representative to report early pain and [...] per policy 9. Teach patient or legal signs and displays sales representative interventions for comforting Outcome: Progressing [...] at the bedside 7. Instruct patient/ patient signs and displays sales representative about use of safety devices 8. Include patient/ patient signs and displays sales representative in decisions related to safety [...] hygiene technique. 7. Identify and instruct patient/patient signs and displays sales representative in use of appropriate isolation precautionsfor identified infection/symptoms. 8. Provide and discuss with patient/patient signs and displays sales representative on educational MDRO sheet. 9. Encourage and monitor nutritional status daily and consult supervisor of instruction if indicated. 10. Implement neutropenic guidelines as needed. Outcome: Progressing Note: Evaluation of progress towards goal: Patient is free from signs and symptoms of infection. Problem: Knowledge Deficit Goal: Patient/patient signs and displays sales representative demonstrates understanding of disease process, [...] as tachysystole. Additional Comments: documented in this encounterC[facility] Hospital Discharge instructions* Discharge Instructions* Sabrina [...] (use each time after yara care) Sexual Nason No tampons, douching, or sexual intercourse until [...] start Kegel exercises now documented in this encounterC[facility]11-02-[facility] Hospital course Narrative* Cassandra SalehZEUS - 12/27/2024 9:22 AM EST Inpatient Discharge [...] wound clean and dry and as directed [employer] Data Information for the patient's : Valeria, Baby Boy Delicia [[id number]] male 3.52 kg Discharge with mother Discharge [...] Your Medications These medications were sent to [facility]/pharmacy #[id number] - [place], [place] - [address] [facility] AT COR[address] OF [address] [address] acetaminophen 500 mg tablet docusate sodium 100 [...] ZEUS Harrison 12/27/24 0924 documented in this encounterC[facility]11-02-2025 History of Present illness Narrative* ZEUS [...] New - 12/26/2024 9:24 AM EDT .Delicia Shaw 1995 39w1d Vitals: 12/26/24 0158 BP: [...] capsule 100 mg, 100 mg, oral, BID, ZEUS Burton, 100 mg at1 2336 hydrocortisone (ANUSOL-HC) 2.5 % rectal cream 1 Application, 1 Application, rectal, PRN, ZEUS Burton ketorolac (TORADOL) injection 30 mg, 30 mg, intravenous, Q8H, 30 mg at 12/25/24 0528 FOLLOWED BY [START ON 12/26/2024] ibuprofen (MOTRIN) tablet 800 mg, 800 mg, oral, Q8H, ZEUS Burton lactated ringers infusion, 999 mL/hr, intravenous, Continuous PRN, ZEUS Burton oxytocin (PITOCIN) infusion 30 units/500 mL in lactated ringers (0.06 units/mL premix), 42 marciano-units/min, intravenous, Continuous PRN, Stopped at 12/25/24 0306 AND lactated ringers infusion, 83mL/hr, intravenous, Continuous PRN, ZEUS Burton, Stopped at 12/25/24 0307 lactated ringers infusion, 125 mL/hr, intravenous, Continuous, ZEUS Burton, Pausedat 12/25/24 0433 lactated ringers infusion, 999 mL/hr, intravenous, Continuous PRN, ZEUS Burton lactated ringers infusion, 999 mL/hr, intravenous, Continuous PRN, ZEUS Burton measles, mumps and rubella vaccine (M-M-R II) injection 0.5 mL, 0.5 mL, subcutaneous, During hospitalization, ZEUS Burton methylergonovine (METHERGINE) injection 200 mcg, 200 mcg, intramuscular, Once PRN, Delicia Egan APRN-CNM methylergonovine (METHERGINE) injection 200 mcg, 200 mcg, intramuscular, Once PRN, Delicia Egan APRN-CNM miSOPROStoL (CYTOTEC) tablet 800 mcg, 800 mcg, sublingual, Once PRN, Delicia Egan, VICTORIAN LITERATURE PROFESSOR-CNM miSOPROStoL (CYTOTEC) tablet 800 mcg, 800 mcg, sublingual, Once PRN, Delicia Egan APRN-CNM modified lanolin (LANSINOH) 100 % cream cream 1 Application, 1 Application, topical, PRN, Ev Egan APRN-CNM, 1 Application at 12/24/24 2337 nalbuphine (NUBAIN) injection 2 mg, 2 mg, intravenous, Q3H PRN, David Guadalupe, DO naloxone (NARCAN) injection 0.1 mg, 0.1 mg, intravenous, PRN, David Guadalupe, DO ondansetron (PF) (ZOFRAN) injection 4 mg, 4 mg, intravenous, Q4H PRN, Delicia Egan APRN-CNM,4 mg at 12/25/24 0039 oxyCODONE (ROXICODONE) immediate release tablet 10 mg, 10 mg, oral, Q4H PRN, Delicia Egan APRN-CNM, 10 mg at 12/25/24 0751 oxyCODONE (ROXICODONE) immediate release tablet 5 mg, 5 mg, oral, Q4H PRN, Delicia Egan APRN-CNM, 5 mg at 12/25/24 0040 oxytocin (PITOCIN) bolus from bag solution 10 Units, 10 Units, intravenous, Once PRN, Delicia Egan, VICTORIAN LITERATURE PROFESSOR-CNM oxytocin (PITOCIN) injection 10 Units, 10 Units, intramuscular, Once PRN, Delicia Egan APRN-CNM oxytocin (PITOCIN) injection 10 Units, 10 Units, intramuscular, Once PRN, Delicia Egan APRN-CNM PNV,calcium 01-wdat-jvzmb acid ( PLUS) 27 mg iron- 1 mg tablet 1 tablet, 1 tablet, oral, Daily, Delicia Egan APRN-JO-ANN polyethylene glycol (GLYCOLAX) packet 17 g, 17 g, oral, Daily, ZEUS Burton simethicone (MYLICON) chewable tablet 80 mg, 80 mg, oral, ACHSP, ZEUS Burton sodium chloride 0.9 % flush 3 mL, 3 mL, intravenous, PRN, Joanie Velarde APRN-JO-ANN sodium chloride 0.9 % flush 3 mL, 3 mL, intravenous, Q12H NATALIE, ZEUS Murillo tranexamic acid (CYKLOKAPRON) injection 1,000 mg, 1,000 mg, intravenous, Q30 Min PRN, Joanie Velarde APRN-JO-ANN tranexamic acid (CYKLOKAPRON) injection 1,000 mg, [...] ZEUS Burton - 12/24/2024 10:13 PM EDT 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 Surgeon: Dr. Imelda Vega was present for all valadez parts [...] position changes. Reassess PRN ZEUS NEW APRN-CNM 12/23/24 193 ZEUS New 12/23/241944 documented in this encounterC[facility]11-[facility]25 Plan of care note * Plan of Care - Ambar Armstrong RN - 12/26/2024 11:40 PM EDT Problem: Pain Goal: Patient goal is pain score less than 4, able to rest, and participant in treatment plan as appropriate Description: INTERVENTIONS: 1. Encourage patient or legal signs and displays sales representative to report early pain and [...] per policy 9. Teach patient or legal signs and displays sales representative interventions for comforting Outcome: Progressing [...] at the bedside 7. Instruct patient/ patient signs and displays sales representative about use of safety devices 8. Include patient/ patient signs and displays sales representative in decisions related to safety [...] hygiene technique. 7. Identify and instruct patient/patient signs and displays sales representative in use of appropriate isolation precautionsfor identified infection/symptoms. 8. Provide and discuss with patient/patient signs and displays sales representative on educational MDRO sheet. 9. Encourage and monitor nutritional status daily and consult supervisor of instruction if indicated. 10. Implement neutropenic guidelines as needed. Outcome: Progressing Note: Evaluation of progress towards goal: Patient afebrile at this time, patient VS WNL. Pt assessed and monitored for signs and symptoms of infection, lab and diagnostic results monitored as needed, administer medications as needed. Hand hygiene completed. Continue to monitor. Problem: Knowledge Deficit Goal: Patient/patient signs and displays sales representative demonstrates understanding of disease process, [...] supplement as ordered 13. Collaborate with clinical supervisor of instruction 14. Include patient/ patient's signs and displays sales representative in decisions related to nutrition [...] needed, will continue to monitor. Additional Comments: [employer]11-01-2025 Plan of care note* Plan of Care - Sabrina Lomeli RN - 12/26/2024 1:19 PM EDT Problem: Pain Goal: Patient goal is pain score less than 4, able to rest, and participant in treatment plan as appropriate Description: INTERVENTIONS: 1. Encourage patient or legal signs and displays sales representative to report early pain and [...] per policy 9. Teach patient or legal signs and displays sales representative interventions for comforting Outcome: Progressing [...] at the bedside 7. Instruct patient/ patient signs and displays sales representative about use of safety devices 8. Include patient/ patient signs and displays sales representative in decisions related to safety [...] hygiene technique. 7. Identify and instruct patient/patient signs and displays sales representative in use of appropriate isolation precautionsfor identified infection/symptoms. 8. Provide and discuss with patient/patient signs and displays sales representative on educational MDRO sheet. 9. Encourage and monitor nutritional status daily and consult supervisor of instruction if indicated. 10. Implement neutropenic guidelines as needed. Outcome: Progressing Note: Evaluation of progress towards goal: Patient afebrile at this time, patient VS WNL. Pt assessed and monitored for signs and symptoms of infection, lab and diagnostic results monitored as needed, administer medications as needed. Hand hygiene completed. Continue to monitor. Problem: Knowledge Deficit Goal: Patient/patient signs and displays sales representative demonstrates understanding of disease process, [...] supplement as ordered 13. Collaborate with clinical supervisor of instruction 14. Include patient/ patient's signs and displays sales representative in decisions related to nutrition [...] needed, will continue to monitor. Additional Comments: [place] [id number] Plan of care note* Plan of Care - Ambar Armstrong RN - 12/26/2024 1:17 AM EDT Problem: Pain Goal: Patient goal is pain score less than 4, able to rest, and participant in treatment plan as appropriate Description: INTERVENTIONS: 1. Encourage patient or legal signs and displays sales representative to report early pain and [...] per policy 9. Teach patient or legal signs and displays sales representative interventions for comforting Outcome: Progressing [...] at the bedside 7. Instruct patient/ patient signs and displays sales representative about use of safety devices 8. Include patient/ patient signs and displays sales representative in decisions related to safety [...] hygiene technique. 7. Identify and instruct patient/patient signs and displays sales representative in use of appropriate isolation precautionsfor identified infection/symptoms. 8. Provide and discuss with patient/patient signs and displays sales representative on educational MDRO sheet. 9. Encourage and monitor nutritional status daily and consult supervisor of instruction if indicated. 10. Implement neutropenic guidelines as needed. Outcome: Progressing Note: Evaluation of progress towards goal: Patient afebrile at this time, patient VS WNL. Pt assessed and monitored for signs and symptoms of infection, lab and diagnostic results monitored as needed, administer medications as needed. Hand hygiene completed. Continue to monitor. Problem: Knowledge Deficit Goal: Patient/patient signs and displays sales representative demonstrates understanding of disease process, [...] supplement as ordered 13. Collaborate with clinical supervisor of instruction 14. Include patient/ patient's signs and displays sales representative in decisions related to nutrition [...] needed, will continue to monitor. Additional Comments: [facility] [id number] Plan of care note* Plan of Care - Mini Munoz RN - 12/25/2024 2:55 PM EDT Problem: Pain Goal: Patient goal is pain score less than 4, able to rest, and participant in treatment plan as appropriate Description: INTERVENTIONS: 1. Encourage patient or legal signs and displays sales representative to report early pain and [...] per policy 9. Teach patient or legal signs and displays sales representative interventions for comforting Outcome: Progressing [...] at the bedside 7. Instruct patient/ patient signs and displays sales representative about use of safety devices 8. Include patient/ patient signs and displays sales representative in decisions related to safety [...] hygiene technique. 7. Identify and instruct patient/patient signs and displays sales representative in use of appropriate isolation precautionsfor identified infection/symptoms. 8. Provide and discuss with patient/patient signs and displays sales representative on educational MDRO sheet. 9. Encourage and monitor nutritional status daily and consult supervisor of instruction if indicated. 10. Implement neutropenic guidelines as needed. Outcome: Progressing Note: Evaluation of progress towards goal: NO S/S OF INFECTION. EDUCATION ABOUT INCISIONAL CARE PROVIDED Problem: Knowledge Deficit Goal: Patient/patient signs and displays sales representative demonstrates understanding of disease process, [...] progress towards goal: ONGOING PLANNING Additional Comments: [facility] [id number] Plan of care note* Plan of Care - Miriam Alexandre RN - 12/25/2024 5:06 AM EDT Additional Comments: [facility] [id number] Plan of care note* Plan of Care - Mini Munoz RN - 12/24/2024 4:45 PM EDT Problem: Pain Goal: Patient goal is pain score less than 4, able to rest, and participant in treatment plan as appropriate Description: INTERVENTIONS: 1. Encourage patient or legal signs and displays sales representative to report early pain and [...] per policy 9. Teach patient or legal signs and displays sales representative interventions for comforting Outcome: Progressing [...] at the bedside 7. Instruct patient/ patient signs and displays sales representative about use of safety devices 8. Include patient/ patient signs and displays sales representative in decisions related to safety [...] hygiene technique. 7. Identify and instruct patient/patient signs and displays sales representative in use of appropriate isolation precautionsfor identified infection/symptoms. 8. Provide and discuss with patient/patient signs and displays sales representative on educational MDRO sheet. 9. Encourage and monitor nutritional status daily and consult supervisor of instruction if indicated. 10. Implement neutropenic guidelines as needed. Outcome: Progressing Note: Evaluation of progress towards goal: NO S/S OF INFECTION NOTED. GOOD HAND HYGIENE MAINTAINED Problem: Knowledge Deficit Goal: Patient/patient signs and displays sales representative demonstrates understanding of disease process, [...] NO INTOLERANCE NOTED TO PRESENT Additional Comments: [facility] [id number] Plan of care note* Plan of Care - Lola Armstrong RN - 12/24/2024 4:47 AM EDT Problem: Pain Goal: Patient goal is pain score less than 4, able to rest, and participant in treatment plan as appropriate Description: INTERVENTIONS: 1. Encourage patient or legal signs and displays sales representative to report early pain and [...] per policy 9. Teach patient or legal signs and displays sales representative interventions for comforting Outcome: Progressing [...] at the bedside 7. Instruct patient/ patient signs and displays sales representative about use of safety devices 8. Include patient/ patient signs and displays sales representative in decisions related to safety [...] hygiene technique. 7. Identify and instruct patient/patient signs and displays sales representative in use of appropriate isolation precautionsfor identified infection/symptoms. 8. Provide and discuss with patient/patient signs and displays sales representative on educational MDRO sheet. 9. Encourage and monitor nutritional status daily and consult supervisor of instruction if indicated. 10. Implement neutropenic guidelines as needed. Outcome: Progressing Note: Evaluation of progress towards goal: Patient is free from signs and symptoms of infection. Problem: Knowledge Deficit Goal: Patient/patient signs and displays sales representative demonstrates understanding of disease process, [...] FHR, as well as tachysystole. Additional Comments: [facility] [id number] History and physical note* Tiffany Lee APRN-JO-ANN [...] breast Pain Management: Nubain or Nitrous Oxide [place] Care Provider: Surya Romero Lab Review ABO/Rh: [...] 12/23/24 6:36 PM ZEUS New 12/23/24 1849 [facility]10-29-2025 History and physical note* ZEUS New [...] 12/23/24 6:36 PM ZEUS New 12/23/24 1849 documented in this encounterC[facility]10-27-20[facility] History of Present illness Narrative* Sanjuanita Nguyen, YUNG - 12/21/2024 11:00 AM EDT Routine OB [...] Saturday at 6pm. Eula in L&D, Courtney Velarde CNM, and Dr Segura notified. 5. Discussed current visitation guidelines in L & D. 6. Patient declines flu shot 7. Educational information given. 8. Questions answered. 9. Return . YUNG Chris 12/21/24 1208 documented in this [facility]10-26-2025 Miscellaneous Notes* Telephone Encounter - [facility] - 12/20/2024 5:44 PM EDT Contract: 129 Pt calling with severe back pain, pelvic pain pt is 38 weeks 4 days * Telephone Encounter - [facility] - 12/20/2024 5:44 PM EDT Called collect on delivery clerk provider ZEUS New and connected her with patient. documented in this encounterC[facility]10-26-2025 Telephone encounter Note* Telephone Encounter - [facility] - 12/20/2024 5:44 PM EDT Contract: 129 Pt calling with severe back pain, pelvic pain pt is 38 weeks 4 days [facility]10-26-2025 Telephone encounter Note* Telephone Encounter - [facility] - 12/20/2024 5:44 PM EDT Called collect on delivery clerk provider ZEUS New and connected her with patient. [facility]10-24-2025 History of Present illness Narrative* YUNG Chris - 12/18/2024 10:45 AM EDT [...] and delivery. 4. Discussed delayed cord clamping, cgnk-vb-drwv, early initiation of , rooming in. 5. Discussed current visitation guidelines in L & D. 6. Patient declines flu shot 7. Educational information given. 8. Questions answered. 9. Return 1 week. YUNG Chris 12/18/24 1127 documented in this encounterC[facility]10-17-[facility] History of Present illness Narrative* YUNG [...] Patient does not have a breast pump Business Practices Supervisor: Surya Teresa in [place] control: condoms 7. Patient declines flu shot. Educational information given. 8. Questions answered. 9. Follow up 1 week. YUNG Chris 12/11/24 1210 documented in this encounterNorth [facility]anissue10-17-2025 Instructions* Patient Instructions* YUNG Chris - 12/11/2024 11:30 AM EDT The Centers for Disease Control and Prevention (CDC) recommends the following steps to help babies sleep safely and reduce the risk of sleep-related infant deaths, including SIDS: Place your baby on [...] environment for your baby, please visit the [facility] s website * Attachments The following attachments cannot be sent through Care Everywhere. * The Ninth Month (Romanian) documented in this encounterNorth [facility]Slanissue10-09-2025 History of Present illness Narrative* YUNG Chris [...] leukocytes in urine today. documented in this encounterC[facility]10-09-2025 Instructions* Patient Instructions* YUNG Chris - 12/03/2024 2:15 PM EDT Here is some information from the CDC about the RSV vaccine recommendations: https://www.cdc.gov/rsv/hcp/vyngjit-noxqlwit-mhgiytax/-people.html * Attachments The following attachments cannot be sent through Care Everywhere. * Group B strep screening (Romanian) documented in this encounterC[facility]09-25-2025 History of Present illness Narrative* ZEUS [...] and MgOxide. Severe heartburn. History of macrosomal noted on problem list. Pt states first [...] in November, also echocardiogram To follow with appeals reviewer veteran after delivery Flu vaccine: declined Tdap: declined Discussed Plan: Pain control: nitrous oxide, open to epidural Feeding: breast Business Practices Supervisor: Surya Romero Having boy, having circumcision Contraception: condoms Reviewed labor precautions, pre-e precautions and FKC. Questions answered and discussed dangers and warnings. Return to care in 2 weeks. Pt verbalizes understanding and agreeable to plan of care. TIFFANY LEE APRN-ZEUS Maldonado 11/19/24 1504 documented in this encounterC[facility]09-25-2025 Miscellaneous Notes* Telephone Encounter - Ana Malhotra RN - 11/19/2024 11:10 AM EDT Received call from Kanchan Evans. Owen needs peer to peer for TTE. Tracking # [id number]. [employer] called and spoke w/ Dr. Marquez. Unable to get approval. Wants to see Holter results prior to approval. Precert notified to have TTE rescheduled for 2 wks after holter- Spoke yossi Kiser Pt called and updated documented in this encounterC[facility]09-25-2025 Telephone encounter Note* Telephone Encounter - Ana Malhotra RN - 11/19/2024 11:10 AM EDT Received call from Kanchan Evans. Owen needs peer to peer for TTE. Tracking # [id number]. [employer] called and spoke w/ Dr. Marquez. Unable to get approval. Wants to see Holter results prior to approval. Precert notified to have TTE rescheduled for 2 wks after holter- Spoke kathleen/ Vandana West. 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 TEACHER REFERRAL ALESSANDRO LAWLER VASOVAGAL SYNCOPE IN 2ND [...] glycol (GLYCOLAX) 17 gram/dose powder Therapy completed 16-udwf-iekbmy 9-dha 31 mg iron- 1 mg-200 mg [...] Referring Physician: Alessandro Lawler MD [address] [facility] [address] [place] [address] documented in this encounterC[facility]09-12-2025 History of Present illness Narrative* Sanjuanita Belgica Nguyen, VICTORIAN LITERATURE PROFESSOR-UX DESIGNER - 11/06/2024 10:45 AM EDT Routine OB [...] YUNG Chris 11/06/24 1118 documented in this encounterC[facility]09-12-2025 Instructions* Patient Instructions* YUNG Chris - 11/06/2024 10:45 AM EDT Here is some information from the CDC about the RSV vaccine recommendations: https://www.cdc.gov/rsv/hcp/wxpctlu-bidzzybt-jiaefxkk/-people.html * Attachments The following attachments cannot be sent through Care Everywhere. * and the Flu (Romanian) documented in this encounterC[facility]09-02-2025 History of Present illness Narrative* Padmini Miller RN - 10/27/2024 1:00 PM EDT Patient is here for IV Venofer as scheduled, accompanied by her significant other. She has tolerated last two doses well and denies any issues. PIV initiated in right forearm without incident and tolerated well. Brisk blood return verified and line flushes with ease. NS initiated as mainline at [facility]. Venofer infused over 15 minutes without issues. Upon completion, IV flushed. Patient declinedto stay for 30 minute observation, but agreeable to VS recheck. VS stable. PIV discontinued and pressure dressing applied. Treatment calendar provided for next two doses of medication. Patient discharged in stable condition to private vehicle, in care of her significant other, to private vehicle. documented in this encounterC[facility]08-29-2025 History of Present illness Narrative* YUNG [...] YUNG Chris 10/23/24 1022 documented in this encounterC[facility]08-29-2025 Miscellaneous Notes* Telephone Encounter - ZEUS [...] [place] 10/27/24 8:52 AM documented in this encounterC[facility]08-29-2025 Telephone encounter Note* Telephone Encounter - [...] 5. - ZEUS [place] 10/27/24 8:52 AM [facility]08-25-2025 Miscellaneous Notes* Telephone Encounter - Lucinda Nunez CMA - 10/19/2024 10:00 AM EDT 10/19/2024 - ATHLETICS TEACHER REFERRAL ALESSANDRO LAWLER VASOVAGAL SYNCOPE, PHONED PT AND APPT SCHEDULED FOR 09/15/2024, PT WAS A NO SHOW FOR THIS APPT, PT RESCHEDULED FOR 10/15/24 AND PT WAS A NO SHOW AGAIN, PHONED PTAND LM ON VM TO CALL OFFICE TO RESCHEDULE APPT, LETTER MAILED TO PT, JSL documented in this encounterC[facility]08-25-2025 Telephone encounter Note* Telephone Encounter - Lucinda Nunez CMA - 10/19/2024 10:00 AM EDT 10/19/2024 - ATHLETICS TEACHER REFERRAL ALESSANDRO LAWLER VASOVAGAL SYNCOPE, PHONED PT AND APPT SCHEDULED FOR 09/15/2024, PT WAS A NO SHOW FOR THIS APPT, PT RESCHEDULED FOR 10/15/24 AND PT WAS A NO SHOW AGAIN, PHONED PTAND LM ON VM TO CALL OFFICE TO RESCHEDULE APPT, LETTER MAILED TO PT, JSL [facility]08-22-2025 History of Present illness Narrative* Gavin [...] ambulatory in stable condition. documented in this encounterC[facility]08-21-2025 Miscellaneous Notes* Telephone Encounter - Sandra Lynn CMA - 10/15/2024 12:28 PM EDT LMOM IN REGARDS TO MISSED APPT. ASKED FOR R/C TO RESCHED THIS APPT. documented in this encounterC[facility]08-21-2025 Telephone encounter Note* Telephone Encounter - Sandra Lynn CMA - 10/15/2024 12:28 PM EDT LMOM IN REGARDS TO MISSED APPT. ASKED FOR R/C TO RESCHED THIS APPT. [facility]08-19-2025 Miscellaneous Notes* Telephone Encounter - ZEUS [...] iron infusion and then she went to [facility] and then it worsened. She relates it [...] 1hr. Pt. Verbalized understanding. documented in this encounterC[facility]08-19-2025 Telephone encounter Note* Telephone Encounter - [...] iron infusion and then she went to [facility] and then it worsened. She relates it [...] Ctx. Q.10min. x 1hr. Pt. Verbalized understanding. [facility]08-19-2025 Miscellaneous Notes* Telephone Encounter - Yanet Guadalupe - 10/13/2024 9:00 PM EDT Contract: 129 Ms Shaw re pelvic pain, not contractions; almost unbearable and hard to walk sometimes; feels baby moving in that area; has tried a warm bath and heating pad; 29 weeks Relayed info to Trevor BUSCH and transferred documented in this encounterC[facility]08-19-2025 Telephone encounter Note* Telephone Encounter - Yanet Collins - 10/13/2024 9:00 PM EDT Contract: 129 Ms Shaw re pelvic pain, not contractions; almost unbearable and hard to walk sometimes; feels baby moving in that area; has tried a warm bath and heating pad; 29 weeks Relayed info to Trevor BUSCH and transferred [facility]08-19-2025 History of Present illness Narrative* Steven [...] in stable ambulatory condition. documented in this encounterC[facility]08-15-2025 History of Present illness Narrative* Delicia Johnston, DEEPIKA-MARCUS - 10/09/2024 9:45 AM EDT Routine OB [...] the morning., Disp: 510 g, Rfl: 3 12-pazc-tdvekj 9-dha 31 mg iron- 1 mg-200 mg [...] YUNG Lopez 10/09/24 1229 documented in this encounterC[facility]08-05-2025 History of Present illness Narrative* Alice Michel MD - 09/29/2024 10:30 AM EDT [facility]- Thyroid Visit Delicia Shaw is a 29 y.o. with subclinical hypothyroidism.Patient is currently 26w6d and is being referred by her OPERATIONS MANAGER. The patient's current regimen is: Patient is [...] ORAL), Take by mouth., Disp: , Rfl: 82-onnj-xkqwff 9-dha 31 mg iron- 1 mg-200 mg [...] - ALICE MICHEL MD 09/29/24 12:20 PM [facility] documented in this encounterC[facility]07-28-2025 History of Present illness Narrative* ZEUS [...] ZEUS Lester 09/21/24 1006 documented in this encounterC[facility]07-25-2025 History of Present illness Narrative* ZEUS [...] Reports traumatic delivery with first child in [place]. History of macrocosmic , G1 4082g Migraine [...] ZEUS Lester 09/18/24 1259 documented in this encounterC[facility]07-15-2025 History of Present illness Narrative* Javier Putnam MD - 09/08/2024 10:00 AM EDT Images from the original note were not included. [address] [facility] [id number] Patient: Delicia Shaw Date of : 1995 [...] did [facility] [place] At other times the syncopal episodes have [...] to display PTSD: No data to display [place]: No data to display ELADIO-10: No data [...] Current Outpatient Medications Medication Sig Dispense Refill 57-qoqf-oktwzr 9-dha 31 mg iron- 1 mg-200 mg [...] touch is bilaterally symmetric and normal. Coordination: Dcisut-sgqw-nihfsk and alkc-arxb-dltw tests are normal. No dysdiadochokinesia on rapid [...] SHERMAN : 1995 SEX: F Accession Number: [id number] ORDERING PHYSICIAN: ALESSANDRO LAWLER REFERRING PHYSICIAN: SANJUANITA NGUYEN Coding Procedures 25281: Transvaginal Ultrasound (OB) 51000: Ultrasound, uterus, real time with image documentation, and maternal evaluation plus detailed anatomic examination, transabdominal approach;single or first gestation Indication Screening for Anatomic Survey, Screening for cervical length, Supervision of high risk -(Syncope) History --- OB History 2. Para 1 [id number] Current Cell free DNA low risk analysis [...] BELKIS: 12/30/2024 General Evaluation Cardiac activity Present. EKW113 bpm. Presentation: cephalic Placenta: Placental site: anterior, [...] EFW (oz) 15 oz EFW by: Hadlock ([id number]) Extended Tibia 29.6 mm 20w6d 39% Adrian Automatic Blocker 6.0 mm CM 4.5 mm 25% Nicolaides [...] view. RVOT view. LVOT view. 3-vessel view. 7-ghvgik-bruauaq view. Situs. Aortic archview. Bicaval view. Ductal [...] follow up with the patient as necessary. [facility] with or without consult Result Date: 08/20/2024 Narrative: NAME: VALERIA SHERMAN : 1995 SEX: F Accession Number: [id number] ORDERING PHYSICIAN: ALESSANDRO LAWLER REFERRING PHYSICIAN: SANJUANITA NGUYEN Coding Procedures 62099: Transvaginal Ultrasound (OB) 74317: Ultrasound, uterus, real time with image documentation, and maternal evaluation plus detailed anatomic examination, transabdominal approach;single or first gestation Indication Screening for Anatomic Survey, Screening for cervical length, Supervision of high risk -(Syncope) History --- OB History 2. Para 1 [id number] Current Cell free DNA low risk analysis [...] BELKIS: 12/30/2024 General Evaluation Cardiac activity Present. TJQ149 bpm. Presentation: cephalic Placenta: Placental site: anterior, [...] EFW (oz) 15 oz EFW by: Hadlock ([id number]) Extended Tibia 29.6 mm 20w6d 39% Adrian Automatic Blocker 6.0 mm CM 4.5 mm 25% Nicolaides [...] view. RVOT view. LVOT view. 3-vessel view. 4-lfkjiy-vjkxvth view. Situs. Aortic archview. Bicaval view. Ductal [...] length measures 5.89 cm. Recommendations Please see [facility] documentation from today. Subsequent follow up or other follow up as clinically determined by primary OB provider unless otherwise specified by [facility]. Results forwarded to ordering provider so they can follow up with the patient as necessary. [facility] with or without consult Result Date: 08/20/2024 Narrative: NAME: VALERIA SHERMAN : 1995 SEX: F Accession Number: [id number] ORDERING PHYSICIAN: ALESSANDRO LAWLER REFERRING PHYSICIAN: SANJUANITA NGUYEN Coding Procedures 83974: Transvaginal Ultrasound (OB) 60057: Ultrasound, uterus, real time with image documentation, and maternal evaluation plus detailed anatomic examination, transabdominal approach;single or first gestation Indication Screening for Anatomic Survey, Screening for cervical length, Supervision of high risk -(Syncope) History --- OB History 2. Para 1 [id number] Current Cell free DNA low risk analysis [...] BELKIS: 12/30/2024 General Evaluation Cardiac activity Present. OFL462 bpm. Presentation: cephalic Placenta: Placental site: anterior, [...] EFW (oz) 15 oz EFW by: Hadlock ([id number]) Extended Tibia 29.6 mm 20w6d 39% Adrian Automatic Blocker 6.0 mm CM 4.5 mm 25% Nicolaides [...] view. RVOT view. LVOT view. 3-vessel view. 2-oynzgb-dafgfux view. Situs. Aortic archview. Bicaval view. Ductal [...] SHERMAN : 1995 SEX: F Accession Number: [id number] ORDERING PHYSICIAN: ALESSANDRO LAWLER REFERRING PHYSICIAN: SANJUANITA NGUYEN Coding Procedures 65951: Transvaginal Ultrasound (OB) 68533: Ultrasound, uterus, real time with image documentation, and maternal evaluation plus detailed anatomic examination, transabdominal approach;single or first gestation Indication Screening for Anatomic Survey, Screening for cervical length, Supervision of high risk -(Syncope) History --- OB History 2. Para 1 [id number] Current Cell free DNA low risk analysis [...] BELKIS: 12/30/2024 General Evaluation Cardiac activity Present. XWC532 bpm. Presentation: cephalic Placenta: Placental site: anterior, [...] EFW (oz) 15 oz EFW by: Hadlock ([id number]) Extended Tibia 29.6 mm 20w6d 39% Adrian Automatic Blocker 6.0 mm CM 4.5 mm 25% Nicolaides [...] view. RVOT view. LVOT view. 3-vessel view. 8-seackn-vltgdvg view. Situs. Aortic archview. Bicaval view. Ductal [...] length measures 5.89 cm. Recommendations Please see [facility] documentation from today. Subsequent follow up or other follow up as clinically determined by primary OB provider unless otherwise specified by [facility]. Results forwarded to ordering provider so they can follow up with the patient as necessary. Assessment and Plan: Delicia was seen today for new patient. Diagnoses and all orders for this visit: Migraine with aura and without status migrainosus, not intractable - MR brain without contrast; Future - EEG; Future Recurrent syncope - [facility] [place], [place] - MR brain without contrast; Future Migraine without aura and without status migrainosus, not intractable - EEG; Future [facility] - [facility] [place] Hx of migraine during - [facility] [place] Visual disturbances - [facility] [place] The patient is a right-handed female [...] trimester Visual disturbances Follow-up: To be decided. Javier Putnam MD Vascular Neurologist [facility] Neurology ([facility]) Total time spent was 45 minutes: Preparing [...] you for your understanding. documented in this encounterC[facility] History of Present illness Narrative* Arleth Catalan [...] done Have you been seen here at [facility] in a previous ? Recent ER visits or hospitalizations? Bring blood sugar log or meter with you today? (Please bring them with you for every visit at [facility]) Flu vaccine (Dec-April)? Any concerns that you would like me to mention to the provider today? * Alessandro Lawler MD - 08/20/2024 2:30 PM EDT Video Visit via Real-time Synchronous Audiovisual Provider Location: [facility]- MEDICINE AT [address] [phone] Patient Location: [place] Patient Location Repairer And Checker: None Video Visit Consent Statement: I discussed [...] that there are some limitations compared to [id number] evaluations. We elected to proceed. REASON FOR CONSULTATION: episode of syncope HISTORY OF PRESENT ILLNESS: Delicia Shaw is a pleasant 29 y.o. at 21w1d due on Estimated Date of Delivery: 12/30/24. complicated by: Syncopal episode at 16wk with history of recurrent episodes of syncope. See below. History of macrocosmic , G1 4082g Patient reports a 5 weeks ago roughly 16 weeks gestation she was standing in line at [employer] for an extended period of time behind [...] (Cheryl) Carrier screening: Negative for 14/14 diseases ([employer] Baby Boy: Rosy Gary have reviewed the pertinent available patient records [...] Known Allergies CURRENT MEDICATIONS: Current Outpatient Medications: 47-ccae-dvshhn 9-dha 31 mg iron- 1 mg-200 mg [...] TESTS AND ULTRASOUND REPORTS: Referral records and [facility] chart were reviewed Pertinent Ultrasound findings are see formal ultrasound report. PHYSICAL EXAMINATION: BP 98/64 Wt 60.8 kg (134 lb) LMP (LMP Unknown) BMI 22.30 kg/m Well-appearing in no distress. Respirations not labored, speaking comfortably in full sentences Gravid abdomen OVERALL ASSESSMENT -Delicia Shaw is a pleasant 29 y.o. at 21w1d -syncopal episodes, suspected reflex syncope -history of macrosomic COUNSELING/MEDICAL DECISION-MAKING We reviewed that based on [...] patient is in complete care of her rehab/pre vocational counselor. Patient was not scheduled back for further M office visits. If future indication arises, please refer back. Thank you for allowing me to participate in the care of Delicia Shaw. If there any questions please do not hesitate to contact us. Alessandro Lawler MD Maternal- Medicine [facility] [address] [facility] 1[address] Floor [place] [id number] [facility], the CDC, and other organizations representing maternal and public health professionals recommend that , , and lactating people and those considering receive the COVID-19 vaccination. Vaccination is the best method to reduce maternal and complications of SARS-CoV-2 infection. This document was created with SkyBridge technology. Though I make every effort to review the dictation as it is transcribed, on occasion the spoken word can be misinterpreted by the technology leading to inappropriate words, phrases, or sentences. This note is addressed to the requesting provider as a consultation for clinical guidance. Specificmedical abbreviations are occasionally used and those are generally approved by the [place]?Board of?Obstetrics and?Gynecology?as well as?Simona bowser abbreviations. The above plan of care was based solely on the diagnoses for which a consultation was requested. ?More frequent testing may be indicated based on her other medical/obstetrical conditions. The management of other or medical conditions is beyond the scope of requested consultation and will c serenainue to be followed by the primary rehab/pre vocational counselor or primary care provider. Note to patient: The Cures Act makes medical notes like these [...] opinion of the practitioner. documented in this encounterC[facility]06-25-2025 History of Present illness Narrative* YUNG Chris - 08/19/2024 1:45 PM EDT Routine OB visit 29 y.o. at 21w0d. She denies cramping or abdominal pain. She denies vaginal bleeding or vaginal loss of fluid. Tolerating regular diet without emesis. She reports movements are present.Patient is planning to breast feed infant. She denies hx breast surgery. Patient has [...] YUNG Chris 08/19/24 1359 documented in this encounterC[facility]06-04-2025 History of Present illness Narrative* YUNG [...] this for 7 days. 14 tablet 0 58-wjcf-eapvks 9-dha 31 mg iron- 1 mg-200 mg [...] this for 7 days. Patient encouraged to picket labor union flagyl and take as directed. Abstain from intercourse until micoplasma results are back and s/o completes treatment. All questions answered. Educational material provided through [employer]. RTO for next scheduled visit or sooner as needed. Note provided for patient that we do not want her driving at this time d/t her passing out. YESY BOUCHER, [facility] Sanjuanita Nguyen APRN-YUNG Enrique 07/29/24 1420 documented in this encounterCleveland Clinic [facility]05-22-2025 Miscellaneous Notes* Telephone Encounter - Patricia Nuñez - 07/16/2024 [...] - 07/16/2024 8:58 AM EDT 1st attempt: [employer] attempted to contact patient and offer to schedule a new patient appointment with our clinic as we have received their new patient referral but was unable to reach them. [employer] received an automated message stating the following: patient's voicemail box is not set up. [employer] attempted twice to call and received the same message. * Telephone Encounter - Ingrid Lynn - 07/16/2024 8:58 AM EDT Please ask the following questions to the new patient that you are schedulin. IS THIS DUE TO AN ACCIDENT? -No 2. IS THIS WORKER'S COMP? PLEASE VERIFY IF THIS IS WORKERS COMP AND DOCUMENT (We do not accept any new workers comp cases) -No 3. WHAT INSURANCE? -[place] [employer] [employer] 4. HAVE YOU EVER BEEN SEEN BY A NEUROLOGIST BEFORE? IF YES, WHO AND WHEN? IS THIS A SECOND OPINION? -No 5. ANY CHANCE OF NOW OR BEFORE YOUR APPOINTMENT? -Yes , Second trimester 6. OFFERED LIO FOR SOONER APPOINTMENT? - No 7. PATIENT IS SCHEDULED ON/WITH: -Dr Putnam 09/08/24 at 10:00 8. WHO CALLED TO SCHEDULE APPOINTMENT? -patient [facility] [employer] [id number] Telephone encounter Note* Telephone Encounter - Patricia [...] EVER BEEN SEEN BY A NEUROLOGIST BEFORE? [facility] [employer] [id number] Telephone encounter Note* Telephone Encounter - Yamel Zuniga - 07/16/2024 8:58 AM EDT 1st attempt: [employer] attempted to contact patient and offer to schedule a new patient appointment with our clinic as we have received their new patient referral but was unable to reach them. [employer] received an automated message stating the following: patient's voicemail box is not set up. [employer] attempted twice to call and received the same message. [facility] [id number] Telephone encounter Note* Telephone Encounter - Ingrid Lynn - 07/16/2024 8:58 AM EDT Please ask the following questions to the new patient that you are schedulin. IS THIS DUE TO AN ACCIDENT? -No 2. IS THIS WORKER'S COMP? PLEASE VERIFY IF THIS IS WORKERS COMP AND DOCUMENT (We do not accept any new workers comp cases) -No 3. WHAT INSURANCE? -E-[employer] MED[employer]/[place] [employer] 4. HAVE YOU EVER BEEN SEEN BY A NEUROLOGIST BEFORE? IF YES, WHO AND WHEN? IS THIS A SECOND OPINION? -No 5. ANY CHANCE OF NOW OR BEFORE YOUR APPOINTMENT? -Yes , Second trimester 6. OFFERED LIO FOR SOONER APPOINTMENT? - No 7. PATIENT IS SCHEDULED ON/WITH: -Dr Putnam 09/08/24 at 10:00 8. WHO CALLED TO SCHEDULE APPOINTMENT? -[facility] [id number] History of Present illness Narrative* Sanjuanita Nguyen APRN-MARCUS - 07/15/2024 1:00 PM EDT Routine OB visit 29 y.o. at 16w0d. She denies cramping or abdominal pain. She denies vaginal bleeding or vaginal loss of fluid. Tolerating regular diet without emesis. Patient reports worsening headaches with visual disturbances. Tylenol helps sometimes. Patient alsoc/o passing out at [employer] on Saturday. She said she felt weird, [...] YUNG Chris 07/15/24 1332 documented in this encounterAvita Health SystemYhat Beaumont [id number] Instructions* Patient Instructions* YUNG Chris - 07/15/2024 1:00 PM EDT What is [...] through Care Everywhere. * The Fourth Month (Romanian) * Quad Test (Romanian) documented in this encounterC[facility]04-28-2025 Miscellaneous Notes* Telephone Encounter - Yesy Boucher CMA - 06/22/2024 4:23 PM EDT Called and spoke to pt and gave her the results of her Cheryl carrier screen documented in this encounterCleveland Clinic [facility]04-28-2025 Telephone encounter Note* Telephone Encounter - Yesy Boucher CMA - 06/22/2024 4:23 PM EDT Called and spoke to pt and gave her the results of her Cheryl carrier screen [facility]04-24-[facility] History of Present illness Narrative* Yesy Boucher CMA - 06/18/2024 4:24 PM EDT Called and gave pt results of Cheryl NIPS testing documented in this encounterCleveland Clinic [facility]04-23-2025 History of Present illness Narrative* YUNG [...] YUNG Chris 06/17/24 1321 documented in this encounterC[facility]03-26-2025 History of Present illness Narrative* YUNG [...] YUNG Chris 05/20/24 1404 documented in this [facility]03-20-2025 Miscellaneous Notes* Telephone Encounter - Larissa Fallon MA - 05/14/2024 12:13 PM EDT Pt called stating that her pharmacy didn't have the unisom. I advised her that should could purchase over the counter. Pt. Stated that wouldn't work for her and that [facility] [place] [facility]. Please advise, thank you! - Larissa Fallon MA 05/14/24 12:15 PM * Telephone Encounter - YUNG Chris - 05/14/2024 12:13 PM EDT [facility] to [facility] [place] * Telephone Encounter - Larissa Fallon MA - 05/14/2024 12:13 PM EDT PT. Was called and notified of info RX info. - Larissa Fallon MA 05/14/24 1:19 PM documented in this [facility]03-20-2025 Telephone encounter Note* Telephone Encounter - Larissa Fallon MA - 05/14/2024 12:13 PM EDT Pt called stating that her pharmacy didn't have the unisom. I advised her that should could purchase over the counter. Pt. Stated that wouldn't work for her and that [facility] [place] [facility]. Please advise, thank you! - Larissa Fallon MA 05/14/24 12:15 PM [facility]03-20-2025 Telephone encounter Note* Telephone Encounter - YUNG Chris - 05/14/2024 12:13 PM EDT [facility] [place] [facility]03-20-2025 Telephone encounter Note* Telephone Encounter - Larissa Fallon MA - 05/14/2024 12:13 PM EDT PT. Was called and notified of info RX info. - Larissa Fallon MA 05/14/24 1:19 PM [facility]03-11-2025 History of Present illness Narrative* YUNG Chris - 05/05/2024 9:15 AM EDT OB Intake Video Visit 29 y.o. new patient at unknown gestation contacted through [employer] for OB intake video visit. verified and verbal consent obtained for video visit. Patient and provider both currently located in the [facility]. This was an unplanned but desired [...] when/how to notify provider. Reviewed CNM / UX DESIGNER care, collaboration & referral to OPERATIONS MANAGER as needed. Reviewed course of care. Discussed CDC recommendation for exclusive for the first 6 months. Patient has been covid vaccinated. Discussed recommendations in . RX for vitamin sent. All questions answered. Educational materials provided through [employer]. Ultrasound and labs ordered. Appointment scheduled for initial OB visit with provider on 05/20/24. YUNG Chris 05/05/24 0958 * Eula Sanchez LPN - 05/05/2024 9:15 AM EDT [id number]. [id number]. Pt desires genetic testing. Last pap was 1 year in [place]. Pt needs PNV script. Unplanned -pt is trying to adjust. documented in this encounterAvita Health SystemYhat Beaumont [id number] History of Present illness Narrative* YUNG Dobson - 12/25/2023 9:00 AM EDT Images from [...] Follow-up p.r.n.. Status post laparoscopic appendectomy [Z90.49] YUNG DOBSON [facility] General Surgery [place] This note was created with the assistance of a speech recognition program. While intending to generate a timely document that accurately reflects the content of the visit, no guarantee can be provided that every grammatical or spelling mistake has been or will be identified or corrected. Thank you for your understanding. YUNG Dobson 12/25/23 0922 documented in this encounterC[facility] Clinic [facility]10-17-2024 History of Present illness Narrative* Ramiro Huntley, MJ - 12/12/2023 1:30 PM EDT Images from [...] No follow-ups on file. documented in this [facility]10-17-2024 Instructions* Patient Instructions* Ramiro Huntley NP - 12/12/2023 1:30 PM EDT Sent to the ER for possible appendicitis. documented in this encounterCameron Regional Medical [id number] NotePatient Education Materials Name: Delicia Shaw Current Date: 04/02/2022 11:25:10 [facility] : 1995 The following sheet(s) are the Patient Education Leaflets for Delicia Shaw Social Human Services Assistants The Range of Pap Test Results When [...] endocervical adenocarcinoma in situ, or adenocarcinoma.) ? [id number] [employer]. [address] [place] [address], [place] [address]. All rights reserved. This information is not [...] breast self-examination (BSE). These experts include the [place] [employer], the U.S. Preventive ServicesTask Force, and the [place] Congress of Obstetricians and Gynecologists. Some experts [...] have: ? Nipple discharg (more content not included)...[facility] Evaluation note* Diagnosis Lower abdominal pain- Primary Abdominal pain, other specified site documented in this encounter [facility] CenterEvaluation noteNo assessment information availableSouthwest General Health Center Work Phone: Evaluation note* Diagnosis Status post laparoscopic appendectomy- Primary Other postprocedural status Postoperative pain Other acute postoperative pain [facility] encounter [facility]* Diagnosis Status post laparoscopic appendectomy- Primary Other postprocedural status documented in [facility] encounter [facility]* Diagnosis First trimester - Primary state, incidental documented in this encounter [facility]* Diagnosis care, first trimester- Primary documented in this encounter [facility]* Diagnosis Nausea/vomiting in - Primary Unspecified vomiting of , unspecified as to episode of care documented in this encounter [facility]* Diagnosis Nausea/vomiting in Unspecified vomiting of , unspecified as to episode of care documented in this encounter [facility]* Diagnosis Cervical smear, as part of routine gynecological examination- Primary Screening for malignant neoplasm of the cervix care, first trimester Acute vaginitis Unspecified vaginitis and vulvovaginitis Back pain affecting in first trimester History of back injury Back pain affecting in first trimester History of back injury documented in [facility] encounter [facility]* Diagnosis BV (bacterial vaginosis)- Primary Unspecified vaginitis and vulvovaginitis Back pain affecting in first trimester History of back injury documented in this encounter [facility]* Diagnosis headache in first trimester- Primary care, first trimester Visual disturbance Unspecified visual disturbance care, first trimester documented in this encounter [facility]* Diagnosis care, first trimester- Primary care, first trimester documented in this encounter [facility]* Diagnosis care, first trimester care, first trimester documented in this encounter [facility]* Diagnosis Second trimester - Primary state, incidental Hx of migraine during Visual disturbances Unspecified visual disturbance Syncope and collapse care, first trimester documented in [facility] encounter [facility]* Diagnosis Screening for STD (sexually transmitted disease)- Primary BV (bacterial vaginosis) Unspecified vaginitis and vulvovaginitis care, first trimester documented in [facility] encounter [facility]* Diagnosis 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 care, first trimester documented in this encounter [facility]* Diagnosis care, second trimester- Primary care, first trimester documented in this encounter [facility]* Diagnosis Vasovagal syncope- Primary Syncope and collapse 21 weeks gestation of care, first trimester documented in [facility] encounter [facility]* Diagnosis Migraine with aura and without status migrainosus, not intractable- Primary Recurrent syncope Migraine without aura and without status migrainosus, not intractable Second trimester state, incidental Hx of migraine during Visual disturbances Unspecified visual disturbance care, first trimester documented in [facility] encounter [facility]* Diagnosis care, second trimester- Primary History of delivery of macrosomal Restless leg syndrome in Sleep disturbance Unspecified sleep disturbance related fatigue in second trimester Recurrent syncope Back pain affecting History of back injury care, first trimester 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 documented in this encounter [facility]* Diagnosis Iron deficiency anemia secondary to inadequate dietary iron intake- Primary Subclinical hypothyroidism Other specified acquired hypothyroidism care, first trimester 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 documented in this encounter [facility]* Diagnosis Subclinical hypothyroidism Other specified acquired hypothyroidism care, first trimester 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 documented in this encounter [facility]* Diagnosis Subclinical hypothyroidism- Primary Other specified acquired hypothyroidism , unspecified gestational age care, first trimester 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 documented in [facility] encounter [facility]* Diagnosis 28 weeks gestation of - Primary 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 Constipation during in third trimester Anemia during in third trimester Iron deficiency anemia, unspecified iron deficiency anemia type 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 documented in this encounter [facility]* Diagnosis 28 weeks gestation of - Primary Iron deficiency anemia, unspecified iron deficiency anemia type 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 documented in this encounter [facility]* Diagnosis 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 documented in this encounter [facility]* Diagnosis Iron deficiency anemia, unspecified iron deficiency anemia type- Primary 28 weeks gestation of 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 documented in [facility] encounter [facility]* Diagnosis care, third trimester- Primary 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 documented in [facility] encounter [facility]* Diagnosis Iron deficiency anemia, unspecified iron deficiency anemia type- Primary 28 weeks gestation of 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 documented in this encounter [facility]* Diagnosis care, third trimester- Primary 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 documented in [facility] encounter [facility]* Diagnosis Vasovagal syncope- Primary Syncope and collapse Recurrent syncope 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 documented [facility] encounter [facility]* Diagnosis 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 documented in [facility] encounter [facility]* Diagnosis care, third trimester- Primary 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 documented in this encounter [facility]* Diagnosis care, third trimester- Primary Restless leg syndrome in Sleep disturbance Unspecified sleep disturbance Uterine size-date discrepancy in third trimester 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 documented [facility] encounter [facility]* Diagnosis care, third trimester- Primary 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 documented in [facility] encounter [facility]* Diagnosis delivery delivered- Primary delivery, [...] of ureaplasma urealyticum documented in this encounter [facility]* Diagnosis delivery delivered- Primary delivery, without mention of indication, delivered, with or without mention of antepartum condition 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 * Activity during (Romanian) * Healthy Weight Gain During (Romanian) * How to Adapt to Physical Changes During (Romanian) * care (Romanian) documented in this encounterFairfield Medical Center SystemInstructionsNot on file documented in this encounterFairfield Medical Center SystemInstructionsNot on file documented in this encounterFairfield Medical Center SystemInstructionsNot on file documented in this encounterFairfield Medical Center SystemInstructions* Attachments The following attachments cannot be sent through Care Everywhere. * Cell-Free DNA Screening (Romanian) documented in this encounterProSumma Health SystemInstructionsNot on file documented in this encounterCleveland Clinic Fairview HospitalInstructions* Attachments The following attachments cannot be sent through Care Everywhere. * Preeclampsia (Romanian) * Quad Test (Romanian) documented in this encounterFairfield Medical Center SystemInstructionsNot on file documented in this encounterCleveland Clinic Fairview HospitalInstructions* Attachments The following attachments cannot be sent through Care Everywhere. * Mycoplasma genitalium (Romanian) documented in this encounterProUnited Way of [facility] [place] SystemInstructionsNot on file documented in this encounterProUnited Way of [place] SystemInstructions* Attachments The following attachments cannot be sent through Care Everywhere. * The Fifth Month (Romanian) documented in this encounterProHiWiFi Health SystemInstructionsNot on file documented in this encounterProHiWiFi Health SystemInstructionsNot on file documented in this encounterProHiWiFi Health SystemInstructionsNot on file documented in this encounterProHiWiFi Health SystemInstructionsNot on file documented in this encounterProHiWiFi Health SystemInstructionsNot on file documented in this encounterProHiWiFi Health SystemInstructionsNot on file documented in this encounterProUnited Way of [place] SystemInstructionsNot on file documented in this encounterProUnited Way of [place] SystemInstructionsNot on file documented in this encounterProHiWiFi Health SystemInstructionsNot on file documented in this encounterProHiWiFi Health SystemInstructionsNot on file documented in this encounterProUnited Way of [place] SystemInstructionsNot on file documented in this encounterProUnited [facility] [place] SystemInstructionsNot on file documented in this encounterProUnited Way of [place] SystemInstructions* Attachments The following attachments cannot be sent through Care Everywhere. * Tdap vaccine (Romanian) * The Seventh Month (Romanian) documented in this encounterProHiWiFi Health SystemInstructionsNot on file documented in this encounterProUnited Way of [place] SystemInstructionsNot on file documented in this encounterProUnited Way of [place] SystemInstructionsNot on file documented in this encounterProUnited [facility] [place] SystemInstructions* Attachments The following attachments cannot be sent through Care Everywhere. * Labor induction (Romanian) * Gexy-wm-mdne care with your (Romanian) documented in this encounterProUnited Way of [place] SystemInstructionsNot on file documented in this encounterProUnited Way of [place] SystemInstructionsNot on file documented in this encounterAvita Health SystemAula 7 SystemInstructions* Attachments The following attachments cannot be sent through Care Everywhere. * Labor induction (Romanian) * How to tell when labor starts (Romanian) documented in this encounterProHuntsville Hospital System [place] Fl[place] Depollution SystemReason for referral (narrative)* Misc (Routine) - Pending ReviewSpecialtyDiagnoses / Procedures Referred By ContactReferred To Contact Procedures Scotts/ feeding on discharge- Breastmilk Cassandra Saleh APRN-CN [address] [place] [address] [address] [place] [address] Phone: tel: fax: Referral IDStatusAnnaStfrankfort DateExpiration DateVisits RequestedVisits [id number] [id number] * Misc (Routine) - Pending ReviewSpecialtyDiagnoses / ProceduresReferred By ContactReferred To Contact Procedures Discharge Follow-Up Cassandra Saleh APRN-CNM [address] [facility] [address], [address] [place] [address] Phone: tel: fax: Referral IDStatHeriasonStart DateExpiration DateVisits RequestedVisits [id number] [id number] [facility] Assessments Diagnosis Late menses Other disorder of menstruation and other abnormal bleeding from female genital tract Summary Purpose Family History No Family History Records FoundNo Family History Records FoundNo Family History Records FoundNo Family History Records FoundNo Family History Records FoundNo Family History Records FoundNo Family History Records Found Advance Directives No Advanced Directives Records Found Date ActivatedDate GjteortivrpOwadzdgd17/29/2025 5:39 PMDate ActivatedDate GdmigimuiiiPohixxsg36/29/2025 5:39 PM12/27/2024 8:16 PM Additional Source Comments INFORMATION SOURCE (unrecogn ized section and content) DATE CREATED AUTHOR 06/09/2020 [facility] DATE CREATED AUTHOR AUTHOR'S ORGANIZ ATION 04/11/2022 [facility] DATE CREATED AUTHOR AUTHOR'S ORGANIZ ATION 12/15/2023 [facility] DATE CREATED AUTHOR AUTHOR'S ORGANIZ ATION 12/20/2023 [facility] DATE CREATED AUTHOR AUTHOR'S ORGANIZ ATION 08/13/2024 [facility] DATE CREATED AUTHOR AUTHOR'S ORGANIZ ATION 12/28/2024 [facility] DATE CREATED AUTHOR AUTHOR'S ORGANIZ ATION 01/02/2025 [facility] Reason for Visit (unrecogniz ed section and content) ReasonCommentsAbdominal PainReasonCommentsFollow-upS/p appendectomyReason CommentsInitial VisitOBIReasonCommentsInitial VisitReasonOnset DateCommentsNew Keyxsej2107/16/2024ReasonCommentsSTD ScreeningReasonComments Routine VisitReasonCommentsmfm consultReasonCommentsNew PatientPatient is here today as a new patientDx: Second trimester , migraine during , visual disturbances, syncope and collapseSpecialtyDiagnoses / ProceduresReferred By ContactReferred To ContactNeurology Diagnoses Second trimester Hx of migraine during Visual disturbances Syncope and collapse Sanjuanita Nguyen, VICTORIAN LITERATURE PROFESSOR-UX DESIGNER [address] [place] [address] Phone: tel: fax: [facility] [address] [facility] [place] [place] [address] Phone: tel: fax: Referral IDStatusReasonart DateExpiration DateVisits RequestedVisits [id number] Review Specialty Services Required /[id number] VisitPatient is 25w&2dReason CommentsHypothyroidismSpecialtyDiagnoses / ProceduresReferred By ContactReferred To ContactEndocrinology Diagnoses Subclinical hypothyroidism Nettie Lees, VICTORIAN LITERATURE PROFESSOR-CNM [address] [place] [address] Phone: tel: fax: Alice Michel MD [address] [facility] [facility] [address] [place] [address] Phone: tel: fax:[phone] Referral IDStatusReasonStart DateExpiration DateVisits RequestedVisits [id number] Review Specialty Services Required [id number] InfusionvenoferSpecialtyDiagnoses / ProceduresReferred By ContactReferred To Contact Diagnoses Iron deficiency anemia, unspecified iron deficiency anemia type 28 weeks gestation of Procedures WI IRON SUCROSE INJECTION Delicia Johnston, VICTORIAN LITERATURE PROFESSOR-UX DESIGNER [address] 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 REFERRAL ALESSANDRO LAWLER VASOVAGAL SYNCOPE IN 2ND TRIMESTERPalpitationsRapid Heart RateSyncopeFainting when getting up in the middle of night to use bathroom DizzinessShortness of BreathWith and without exertion and when trying to get a deep cleansing breathSpecialtyDiagnoses / ProceduresReferred By ContactReferred To ContactCardiology Diagnoses Vasovagal syncope Alessandro Lawler MD [address] [facility] 1[address] [place] [address] Phone: tel: fax: [facility] [address] [address] Phone: tel: fax: Referral IDStatusReasonStart DateExpiration DateVisits RequestedVisits [id number] Review Specialty Services Required [id number] VisitPatient is currently 36w&1d.ReasonCommentsRoutine VisitPatient is currently 37w&2d.Reason Onset DateCommentsBack Pain12/20/2024ontract: 129ReasonCommentsScheduled InductionSpecialtyDiagnoses / ProceduresReferred By ContactReferred To Contact Joanie Velarde, DEEPIKA-ZAN [address] [place] [address] Phone: tel: fax: Referral IDStatusReasonStart DateExpiration DateVisits RequestedVisits [id number] CarePatient presents for one week incision check after primary with Dr. Segura.ReasonOnset DateComments fbpwrs9512/31/2024 Care Teams (unrecognized sec tion and content) Team MemberRelationshipSpecialtyStart DateEnd Date Carloz Nelson MD [address] [place] [address] PCP - GeneralInternal Medicine09/02/23Team MemberRelationshipSpecialtyStart Date End Date Carloz Nelson MD [address] [place] [address] PCP - GeneralInternal Medicine09/02/23 Team Status: Inactive Member Role Status Dates Kj Mcclelland DO Attending Provider Active Start: December 12, 2023 End: December 12, 2023Team MemberRelationshipSpecialtyStart DateEnd Date No Pcp, [place] [address] PCP - GeneralFamily Medicine07/23/21Team MemberRelationshipSpecialtyStart DateEnd Date No Pcp, [place] [address] PCP - GeneralFamily Medicine07/23/21Team MemberRelationshipSpecialtyStart DateEnd Date Carloz Nelson MD [address], [facility] [address] [place] [address] PCP - GeneralInternal Zwxebtlf88/30/24Team MemberRelationshipSpecialtyStart Date End Date Carloz Nelson MD [address], [address] [place] [address] PCP - GeneralInternal Sznygrgn29/30/24Team MemberRelationshipSpecialtyStart Date End Date Carloz Nelson MD [address], [address] [place] [address] PCP - GeneralInternal Eastdiaq65/30/24Team MemberRelationshipSpecialtyStart Date End Date Carloz Nelson MD [address], [address] [place] [address] PCP - GeneralInternal Lotvjbnn89/30/24Team MemberRelationshipSpecialtyStart Date End Date Carloz Nelson MD [address], [address] [place] [address] PCP - GeneralInternal Oenoqtdd85/30/24Team MemberRelationshipSpecialtyStart Date End Date Carloz Nelson MD [address], [address] [place] [address] PCP - GeneralInternal Fmgzggxe18/30/24Team MemberRelationshipSpecialtyStart Date End Date Carloz Nelson MD [address], [address] [place] [address] PCP - GeneralInternal Ippfnuca97/30/24Team MemberRelationshipSpecialtyStart Date End Date Carloz Nelson MD [address], [address] [place] [address] PCP - GeneralInternal Azlbdxze18/30/24Team MemberRelationshipSpecialtyStart Date End Date Carloz Nelson MD [address], [address] [place] [address] PCP - GeneralInternal Aoiwzvbw06/30/24am MemberRelationshipSpecialtyStart Date End Date Carloz Nelson MD [address], [address] [place] [address] PCP - GeneralInternal Xrnmoccf35/30/24am MemberRelationshipSpecialtyStart Date End Date Carloz Nelson MD [address], [address] [place] [address] PCP - GeneralInternal Zmuaebwb02/30/24am MemberRelationshipSpecialtyStart Date End Date Carloz Nelson MD [address], [address] [place] [address] PCP - GeneralInternal Ddscwygc05/30/24Team MemberRelationshipSpecialtyStart Date End Date Carloz Nelson MD [address], [address] [place] [address] PCP - GeneralInternal Gpkblxma20/30/24Team MemberRelationshipSpecialtyStart Date End Date Carloz Nelson MD [address], [address] [place] [address] PCP - GeneralInternal Eofdvvnt95/30/24Team MemberRelationshipSpecialtyStart Date End Date Carloz Nelson MD [address], [address] [place] [address] PCP - GeneralInternal Ojhdfglj53/30/24Team MemberRelationshipSpecialtyStart Date End Date Carloz Nelson MD [address], [address] [place] [address] PCP - GeneralInternal Hljujyap46/30/24Team MemberRelationshipSpecialtyStart Date End Date Carloz Nelson MD [address], [address] [place] [address] PCP - GeneralInternal Sjnhixxi14/30/24Team MemberRelationshipSpecialtyStart Date End Date Carloz Nelson MD [address], [address] [place] [address] PCP - GeneralInternal Jeucwqgo98/30/24Team MemberRelationshipSpecialtyStart Date End Date Carloz Nelson MD [address], [address] [place] [address] PCP - GeneralInternal Ffwzpmir19/30/24Team MemberRelationshipSpecialtyStart Date End Date Carloz Nelson MD [address], [address] [place] [address] PCP - GeneralInternal Ygrepzqc91/30/24Team MemberRelationshipSpecialtyStart Date End Date Carloz Nelson MD [address], [address] [place] [address] PCP - GeneralInternal Bpatuhxs79/30/24Team MemberRelationshipSpecialtyStart Date End Date Carloz Nelson MD [address], [address] [place] [address] PCP - GeneralInternal Vschrwrz25/30/24Team MemberRelationshipSpecialtyStart Date End Date Carloz Nelson MD [address], [address] [place] [address] PCP - GeneralInternal Jcplgvcq81/30/24Team MemberRelationshipSpecialtyStart Date End Date Carloz Nelson MD [address], [address] [place] [address] PCP - GeneralInternal Minmpbgj29/30/24Team MemberRelationshipSpecialtyStart Date End Date Carloz Nelson MD [address], [address] [place] [address] PCP - GeneralInternal Mflixmty22/30/24Team MemberRelationshipSpecialtyStart Date End Date Carloz Nelson MD [address], [address] [place] [address] PCP - GeneralInternal Iqknzwcp28/30/24Team MemberRelationshipSpecialtyStart Date End Date Carloz Nelson MD [address], [address] [place] [address] PCP - GeneralInternal Wfzouszh99/30/24Team MemberRelationshipSpecialtyStart Date End Date Carloz Nelson MD [address], [address] [place] [address] PCP - GeneralInternal Kfyeegja43/30/24Team MemberRelationshipSpecialtyStart Date End Date Carloz Nelson MD [address], [address] [place] [address] PCP - GeneralInternal Kddtbxcg32/30/24am MemberRelationshipSpecialtyStart Date End Date Carloz Nelson MD [address], [address] [place] [address] PCP - GeneralInternal Wlggjyjo68/30/24am MemberRelationshipSpecialtyStart Date End Date Carloz Nelson MD [address], [address] [place] [address] PCP - GeneralInternal Lxojfyci06/30/24am MemberRelationshipSpecialtyStart Date End Date Carloz Nelson MD [address], [address] [place] [address] PCP - GeneralInternal Yjqvzkpo04/30/24Team MemberRelationshipSpecialtyStart Date End Date Carloz Nelson MD [address], [address] [place] [address] PCP - GeneralInternal Myozfitl66/30/24Team MemberRelationshipSpecialtyStart Date End Date Carloz Nelson MD [address], [address] [place] [address] PCP - GeneralInternal Hntidpej33/30/24Team MemberRelationshipSpecialtyStart Date End Date Carloz Nelson MD [address], [address] [place] [address] PCP - GeneralInternal Uofjtpre97/30/24Team MemberRelationshipSpecialtyStart Date End Date Carloz Nelson MD [address], [facility] [address] [place] [address] PCP - GeneralInternal Boymjmdo25/30/24 Goals (unrecognized section and content) Goals may [...] ered Medications (unrecognized section and content) Medication Order511/511/03/2024 acetaminophen (TYLENOL EXTRA STRENGTH) tablet 1,000 mg 1,000 mg, oral, Every 8 hours, First dose on Sat12/25/24 at 0100, , Alternate administration every 4 hours with ketorolac or ibuprofen * 0107 (Given - Provider: Miriam Alexandre RN) * 0902 (Given - Provider: Mini Munoz RN) * 1724 (Given - Provider: Mini Munoz RN - Comment[facility]) * 0158 (Given - Provider: Ambar Armstrong RN) * 0917 (Given - Provider: Sabrina Lomeli, FRANCESCA) * 1726 (Given - Provider: Sabrina Lomeli RN) * 0115 (Given - Provider: Ambar Armstrong RN) * 0917 (Given - Provider: Sabrina Lomeli RN) * 1700 (Due - Provider: Raúl Dela Cruz [facility]) clindamycin (CLEOCIN) IVPB 600 mg/50 mL in [...] 1217 (Stop Bag - Provider: Mini Munoz, RN) * 194 (New Bag - Provider: Sofía Wilkinson RN) * 2018 (Stop Bag - Provider: Ambar Armstrong RN) * 0410 (New Bag - Provider: Ambar Armstrong, RN) * 0440 (Stop Bag - Provider: Ambar Armstrong, RN) * 1217 (New Bag - Provider: Sabrina Lomeli, RN) * 1242 (Stop Bag - Provider: Sabrina Lomeli, RN) * 2019 (New Bag - Provider: Ambar Armstrong, FRANCESCA) * 204 (Stop Bag - Provider: Ambar Armstrong, FRANCESCA) * 0438 (New Bag - Provider: Ambar Armstrong, FRANCESCA) * 0508 (Stop Bag - Provider: Ambar Armstrong, FRANCESCA) docusate sodium (COLACE) capsule 100 mg 100 mg, oral, 2 times daily, First dose on Sat12/24/24 at 2245, , Look-alike/sound-alikemedication - verify indication for use. * 0902 (Given - Provider: Mini Munoz RN) * 211 (Given - Provider: Ambar Armstrong, FRANCESCA) * 09 (Given - Provider: Sarbina Lomeli, RN) * 2048 (Given - Provider: Ambar Armstrong, FRANCESCA) * 0917 (Given - Provider: Sabrina Lomeli, RN) * 2100 (Due) doxycycline (VIBRAMYCIN) capsule [...] RN) * 1246 (Given - Provider: Sabrina Lomeli, FRANCESCA) * 2049 (Given - Provider: Ambar Armstrong RN) * 0507 (Given - Provider: Ambar Armstrong RN) * 1300 (Due) * 2100 (Due) ketorolac [...] (Given - Provider: Ambar Armstrong, FRANCESCA) PNV,calcium 10-tfgw-cbycl acid ( PLUS) 27 mg iron- 1 [...] 2110 (Given - Provider: Ambar Armstrong, RN) * 0917 (Given - Provider: Sabrina Lomeli, RN) * 2019 (Given - Provider: Ambar Armstrong, RN) * 0900 (Due) * 2100 (Due) Medication Order/ lactated ringers infusion (CANCELED) 125 mL/hr, intravenous, [...] * 0430 (Paused - Provider: Miriam Alexandre, FRANCESCA) * 0431 (Restarted - Provider: Miriam Alexandre, [...] Bag - Provider: Mini Munoz, RN) Medication Order/01/969190/03/2024 bisacodyL (DULCOLAX) suppository 10 mg 10 mg, [...] Refer to Sherley for administration instructions., Indications: rdmpwig-wibtx-buzwiqk vaccination methylergonovine (METHERGINE) injection 200 mcg 200 [...] * 1545 (Given - Provider: Mini Munoz, FRANCESCA) * 2132 (Given - Provider: Sofía Wilkinson [...] * 0306 (Stop Bag - Provider: Miriam Alexandre, RN) * 0307 (Stop Bag - Provider: Miriam Alexandre, RN) oxytocin (PITOCIN) injection 10 Units 10 [...] FRANCESCA) * 1215 (Given - Provider: Sabrina Lomeli [...] than 0.9 is considered negative), Starting on Stpehani 12/24/24 at 2242, For 1 dose, , [...] BE BASED ON THE PRIMARY CLINICAL RECORDS. [facility]amiliar [facility]. provides no warranty or guarantee of the accuracy or completeness of information in this document.
--- OUTSIDE RECORDS SUMMARY | 2025-01-26 18:08 | XMS_ITS | Clinical Summary ---
Author Organization [facility] Address [address], [address] [place] [address] Care Team Providers Care Pharmacist In Charge Name Role Phone Unavailable Primary Care Provider Unavailabl e Allergies Active AllergyReactionsCriticalityNoted DateCommentsNo Known Ncavtbnrr37/14/2021 Medications MedicationSigDispense QuantityRefillsLast FilledStart DateEnd DateStatus Acetaminophen [...] Recorded Sex Assigned at BirthNot on fileLegal RheDagcss58/29/2015 5:21 PM ESTGender IdentityNot on fileSexual OrientationNot on file Last Filed Vital Signs Vital SignReadingTime TakenCommentsBlood Gamxrzlk451/62006/08/2020 10:09 AM EDT Pulse--Temperature--Respiratory Rate--Oxygen Saturation--Inhaled Oxygen Concentration--Weight8.255 kg (18 lb 3.2 oz)06/08/2020 10:09 AM CTSIdahfi313.1 cm (5' 5 )06/08/2020 10:09 AM EDTBody Mass Index3.03006/08/2020 10:09 AM EDT Plan of Treatment Not on file Insurance
[2025-01-26] MEDS: OXYCODONE HCL 5 MG TABLET PO (19:11)
[2025-01-26] MEDS: TIZANIDINE HCL 4 MG TABLET PO (19:11)
== END 2025-01-26 20:02 | disposition home or self-care (01) ==
PROVIDERS: Emergency Provider Emergency Medicine; Family Provider Family Medicine; PCP Internal Medicine
DX: S30.0XXA Contusion of lower back and pelvis, initial encounter (principal); W00.0XXA Fall on same level due to ice and snow, initial encounter; R10.9 Unspecified abdominal pain; F17.290 Nicotine dependence, other tobacco product, uncomplicated
CPT/HCPCS: 74176; 99284

== ENCOUNTER 2025-02-17 00:46 | Emergency (ER) | payer OTHER, SELFPAY ==
--- OUTSIDE RECORDS SUMMARY | 2023-10-03 08:00 | XMS_ITS ---
Author Organization [facility] Address [address] [place] [address] Care Team Providers Care Fuel Verification Technician Name Role Phone Dr. Epifanio Velázquez Primary Care Provider [phone] REASON FOR VISIT NEW PT EXAM Encounters Encounter Location Date Provider Diagnosis [facility] [address] [place] [address] 10/03/2023 Epifanio Velázquez Plan Of Treatment No Information Progress Notes * NELSONGILYUKI MAURERIEDOB:[birth year] (29 yo F)Acc No.[id number]:10/03/2023 Patient:?SAMI DOSS :?Epifanio Velázquez DDSDOB:1995???Age:28 Y???Sex: FemaleDate:4Phone:[phone]:[address] [id number] Subjective: * Chief Complaints: * N EW PT EXAM * Electronic signature of Dr. Epifanio Velázquez , DMD, [id number] on 02/17/2025 at 02:09 AM ESTSign off status: Pending * Provider: Malcom Velázquez DDS Date: 0 10/03/2023 Generated for Printing/Faxing/eTransmitting on:?02/17/2025 02:09 AM EST
[2025-02-17 00:56] VITALS: BP 120/97; PULSE 116; O2SAT 99
--- NOTE | 2025-02-17 01:31 | ED_ITS ---
HPI - Wound/Laceration General Chief Complaint: Wound/Laceration Stated Complaint: LACERATION, LEFT HAND Time Seen by Provider: 02/17/25 01:25 Source: patient Mode of arrival: walk-in History of Present Illness HPI narrative: This 29-year-old female who is right-hand dominant presents for evaluation of a laceration to the distal end of her left fifth finger. She cut it on a pair of scissors while wrapping presents for [place]. She states she could not get the bleeding to stop. She does not know the date of her last tetanus shot. Related Data Allergies Allergy/AdvReac Type Severity Reaction Status Date / Time doxycycline Allergy Rash Verified 02/17/25 00:56 Review of Systems ROS Status of ROS 10 or more systems reviewed and unremark able except as noted in history and below [facility] Medical History (Updated 02/17/25 @ 02:22 by Annika Morel MD) Attention deficit disorder (ADD) in adult ?F98.8 - Other specified behavioral and emotional disorders with onset usually occurring in childhood and adolescence (ICD-10) Social History (Updated 12/12/23 @ 22:13 by Vera Porter RN) Within the past year, how often did you have a drink containing alcohol: monthly or less Within the past year, how many standard drinks containing alcohol did you have on a typical day: 1 or 2 Within the past year, how often did you have six or more drinks on one occasion: less than monthly Total score: 1 Score interpretation: A score less than 3 is consistent with normal alcohol consumption. Smoking status: Current some day smoker Do you use any of these nicotine containing products: e-cigarettes and vaping products Non-prescribed substance use: cannabis (any form) Highest level of school completed/degree received: GED or equivalent Are you now , , , , never or living with a partner: never In a typical week, how many times do you talk on the telephone with family, friends, or neighbors: 3 or more times per week How often do you get together with friends or relatives: 3 or more times per week How often do you attend mandaeism or lutheran services: never Little interest or pleasure in doing things: not at all Feeling down, depressed, or hopeless: not at all Feel stressed/tense/nervous/anxious/difficulty sleeping: not at all Gender Identity: female Exam Narrative Exam Narrative: Vital signs and Nursing Notes reviewed: Patient is tachycardic with a pulse of 116, blood pressure mildly elevated 120/97, she is not hypoxic with pulse ox of 99% on room air General: Awake, alert, oriented, no acute distress, lying comfortably on the stretcher HEENT: Normocephalic atraumatic, mucous membranes are moist and pink, eyes are clear, normal conjunctiva, vision is grossly intact Neck: Supple, no meningeal signs, no anterior or posterior cervical lymphadenopathy Chest: Lungs are clear to auscultation with good air entry, there is no wheezing rhonchi or rales appreciated no accessory muscle use, patient is speaking in complete sentences-no chest wall tenderness to palpation CVS: Regular rate and rhythm S1-S2, tachycardic at 116 at triage no murmurs rubs or gallops, pulses are brisk and equal bilaterally Extremities: Approximately 0.75 to 1 cm semicircular laceration to the distal end of the left fifth finger. Mild active bleeding noted at triage which resolved after pressure dressing was placed. Skin: Normal in appearance without rash,pallor, petechiae or purpura Neuro: No focal deficits Constitutional Vital Signs, click to edit/add: Last Vital Signs Pulse 116 H 02/17/25 00:56 Resp 16 02/17/25 00:56 BP 120/97 H 02/17/25 00:56 Pulse Ox 99 02/17/25 00:56 O2 Del Method Room Air 02/17/25 00:56 Course Vital Signs Vital signs: Vital Signs Pulse Rate 116 H 02/17/25 00:56 Respiratory Rate 16 02/17/25 00:56 Blood Pressure 120/97 H 02/17/25 00:56 Pulse Oximetry 99 02/17/25 00:56 Oxygen Delivery Method Room Air 02/17/25 00:56 Pulse Rate 116 H 02/17/25 00:56 Respiratory Rate 16 02/17/25 00:56 Blood Pressure 120/97 H 02/17/25 00:56 Pulse Oximetry 99 02/17/25 00:56 Oxygen Delivery Method Room Air 02/17/25 00:56 Discharge Plan Discharge Chief Complaint: Wound/Laceration Clinical Impression: Laceration of finger Patient Disposition: Home, Self-Care Time of Disposition Decision: 02:20 Condition: Good Print Language: Venezuelan Instructions: Care For Your Stitches (ED), Finger Laceration (ED) Additional Instructions: Sutures can be removed in 10-12 days, keep finger covered with a dry, non stick dressing and/or band aid Referrals: HOLLY RAMIREZ [Primary Care Provider, Internal Medicine] - 1 week Procedures ED Procedure Instructions Procedures Procedures: Procedure note: Laceration repair left distal fifth finger. A digital block was performed with 1% lidocaine. When anesthesia was obtained copious normal LS irrigation was performed. 4, 4-0 Ethilon sutures were placed at the distal end of the finger with good wound edge approximation. Patient tolerated procedure well and a sterile, dry, nonstick bacitracin dressing was placed by the nursing staff. Wound care instructions were given to the patient who verbalizes understanding.
[2025-02-17] MEDS: DIPHTH,PERTUSS(ACELL),TET VAC 0.5 ML SYRINGE IM (01:40)
--- OUTSIDE RECORDS SUMMARY | 2025-02-17 02:09 | XMS_ITS | Patient Health Record ---
Author Organization [facility] Address [address] [address] Care Team Providers Care Plate Molder Name Role Phone Dr. Epifanio Velázquez Primary Care Provider Reason For Referral No Information Plan Of Treatment No Information Insurance Providers Payer Name Payer Address Payer Phone Subscriber Number Group Number Insured Name Patient Relationship to Insured Coverage Start Date Coverage End Date [employer] [place] [employer] [address] [place] [address] [id number] LAURA DOSSelf - patient is the [id number] 2023
[2025-02-17] MEDS: BACITRACIN 0.9 GM PACKET 1 PACKET TOPICAL (02:38)
== END 2025-02-17 02:44 | disposition home or self-care (01) ==
PROVIDERS: Emergency Provider Emergency Medicine; Family Provider Family Medicine; PCP Internal Medicine
DX: S61.217A Laceration without foreign body of left little finger without damage to nail, initial encounter (principal); W27.2XXA Contact with scissors, initial encounter; Z23 Encounter for immunization; F17.290 Nicotine dependence, other tobacco product, uncomplicated
CPT/HCPCS: 12001; 90471; 90715; 99283